=== PATIENT | female | born 1960 | race Caucasian/White ===

== ENCOUNTER 2024-05-04 11:54 | Emergency (ER) | payer OTHER, SELFPAY ==
--- NOTE | ~2024-05-04 | XR_ITS ---
EXAMINATION: XR CHEST CLINICAL INFORMATION: Shortness of breath COMPARISON: 11/23/2018 TECHNIQUE: Frontal view of the chest was obtained. FINDINGS: Is new of status post CABG and median sternotomy and compared to the previous examination. Lungs are clear and cardiomediastinal silhouette is normal with no evidence of pleural effusion. XR/XR chest 1V IMPRESSION: No active cardiopulmonary disease
[2024-05-04 12:54] VITALS: BP 125/104; PULSE 75; RESP 18; TEMP 36.1; O2SAT 100; BMI 20.9
--- NOTE | 2024-05-04 12:58 | ED.GENADULT ---
HPI - General Adult General Chief complaint: General Medical Stated complaint: headache, rib pain, stiffness Time Seen by Provider: 05/04/24 15:19 Source: patient, RN notes reviewed and old records reviewed Mode of arrival: ambulatory History of Present Illness ED Provider: Milly Woodard PA-C HPI narrative: 63-year-old female with a past medical history of COPD, CHF, diabetes, CAD on Plavix, fibromyalgia, lupus, presenting to the ED complaining of diffuse body aches/myalgias, chills, fatigue/generalized weakness, and chronic SOB x few days. Admits symptoms for similar to prior lupus/fibromyalgia flares. Admits recently moved from [place]. Denies fever, CP, abdominal pain, nausea/vomiting. Denies daily steroid use. Related Data Previous Rx's ?Medication ?Instructions ?Recorded acetaminophen 500 mg tablet 500 mg PO Q6H PRN fever or pain 05/04/24 (Tylenol Extra Strength) #14 tabs cyclobenzaprine 5 mg tablet 5 mg PO Q8H PRN pain (scale score 05/04/24 7-10) 5 days #14 tabs prednisone 20 mg tablet 40 mg (2 x 20 mg) PO DAILY 5 days 05/04/24 #10 tabs Allergies Allergy/AdvReac Type Severity Reaction Status Date / Time cat dander [CAT DANDER] Allergy Mild ITCHY EYES Verified 05/04/24 12:59 Review of Systems Review of Systems: Constitutional: No Fever, + Chills, +fatigue ENT/Mouth: No Ear Pain, No Nasal Congestion, No sore throat, No Rhinorrhea, No Swallowing Difficulty Cardiovascular: No Chest Pain, + SOB Respiratory: No Cough, No Sputum, No Wheezing Gastrointestinal: No Nausea, No Vomiting, No Diarrhea, No Abdominal pain Genitourinary: No Dysuria, No Hematuria, No Urinary Incontinence/retention, No Flank Pain Musculoskeletal: +joint pain, + Myalgias, No Joint Swelling Skin: No Skin Lesions, No rash Neuro: + Weakness, No Numbness, No Paresthesias Yes all other systems are reviewed and are negative Constitutional: Constitutional: Reports as per [facility] Past Medical History Attestation statement: The following information was validated with the patient. Source: old records reviewed Social History Social History Advance Directives: No Do you have a plan to hurt others: No Plan Physical Exam ED Vital Signs: Vital Signs - 24 hr 05/04/24 12:54 05/04/24 17:13 Temperature 96.9 F 97.8 F Pulse Rate 75 67 Respiratory Rate 18 16 Blood Pressure 125/104 H 145/72 H Pulse Oximetry 100 98 Oxygen Delivery Method Room Air Room Air BMI result Body Mass Index 20.9 Const General: cooperative, no acute distress and alert Orientation/consciousness: patient oriented x3 Limitations: no limitations HENMT Head: Yes normal to inspection and Yes atraumatic Ears: hearing grossly normal bilaterally General nose exam: Normal external nose present Face and sinus: Yes normal facial exam Eyes General: appearance normal, both eyes and all related structures Pupils: Equal, round and reactive pupils present EOM: EOMs intact bilaterally Neck Neck: Yes normal visual inspection and Yes no meningeal signs Resp Effort & Inspection: normal respiratory effort and no respiratory distress Auscultation: clear to auscultation bilaterally, no crackles, no rhonchi and no wheezes Cardio Rate: regular rate Heart sounds: S1 normal heart sound present and S2 normal heart sound present GI Inspection: Yes normal to inspection Palpation (GI): Soft to palpation, nontender, no guarding and not rigid General: Yes no CVA tenderness Back/Spine/Pelvis Back: no CVA tenderness Skin Rashes: no rashes Wounds: no wounds Neuro General: patient oriented x3, gait normal, tone normal, moves all extremities, no meningeal signs, no focal motor deficits and CN's II-XI intact bilaterally Cranial nerves: Yes CN's II-XII intact bilaterally and Yes Equal, round and reactive pupils present Gait exam (Neuro): Normal gait present Motor exam (neuro): 5/5 motor strength present throughout Extrem General: Yes normal to inspection, Yes no pedal edema and Yes no calf tenderness Course Course Course Narrative: This is an RME: Additional HPI, ROS, PE not included below will be deferred to primary provider. RME assessment and note performed by: Sugey Urrutia PA-C This is a [id number]-female who presents to the ER with complaints of body aches, headache, back pain. Symptoms started 2 days ago. No sick contacts. Recently moved from [place] 3 weeks ago, drove up. Feeling some chills, no fevers. Feel short of breath, no nausea, vomiting or diarrhea. Vital signs within normal limits. Further ER evaluation needed. Plan: Labs, EKG, chest x-ray -chronic anemia. No leukocytosis. Elevated ESR/CRP -troponin and BNP WNL -COVID/flu/RSV negative XR chest 1V IMPRESSION: No active cardiopulmonary disease Results discussed with patient including worrisome signs and symptoms and strict return precautions, and when to return to the emergency department. They verbalized understanding and feel safe for discharge at this time. Medications Administered Discontinued Medications Generic Name Dose Route Start Last Admin Trade Name Giorgio PRN Reason Stop Dose Admin Acetaminophen 975 mg 05/04/24 15:37 05/04/24 15:53 Acetaminophen 325 Mg Tablet PO 05/04/24 15:38 975 mg ONCE ONE Administration Cyclobenzaprine HCl 5 mg 05/04/24 15:37 05/04/24 15:53 Cyclobenzaprine Hcl 5 Mg Tablet PO 05/04/24 15:38 5 mg ONCE ONE Administration Prednisone 40 mg 05/04/24 17:30 05/04/24 17:54 Prednisone 20 Mg Tablet PO 05/04/24 17:31 40 mg ONCE ONE Administration Medical Decision Making Medical Decision Making [facility] Narrative: 63-year-old female with a past medical history of COPD, CHF, diabetes, CAD on Plavix, fibromyalgia, lupus, presenting to the ED complaining of diffuse body aches/myalgias, chills, fatigue/generalized weakness, and chronic SOB x few days. On exam hypertensive, NAD, nontoxic appearing, lungs CTA, no focal neuro deficits. Concern for viral illness vs lupus or fibromyalgia flare vs metabolic abnormalities. Lower suspicion for acute COPD/CHF exacerbation or PE at this time as symptoms or acute chronic. Unlikely dissection/ACS Plan: EKG, labs, viral testing, CXR, pain control Please refer to course for remaining clinical decision making, interpretation of labs/imaging results, and discussions with consultants and/or family members. Differential Diagnosis Differential Diagnoses: The differential diagnosis associated with the presentation includes As above Admission/Observation Consideration of admission/observation: Escalation of care including admission/observation considered Lab Data [facility] Lab Attestation statement: I reviewed the patient's lab results. 05/04/24 13:44 05/04/24 13:44 Labs: Lab Results 05/04/24 Range/Units 13:44 WBC 6.4 (4.8-10.8) X10*3/uL RBC 4.52 (4.20-5.50) X10*6/uL Hgb 11.1 L (12.0-16.0) g/dl Hct 35.5 L (37.0-47.0) % MCV 78.5 L (80.0-98.0) fL MCH 24.6 L (27.0-33.0) pg MCHC 31.3 (31.0-35.0) g/dl RDW 15.9 (11.0-16.0) % Plt Count 238 (160-400) X10*3/uL MPV 10.4 (9.4-12.3) fL Immature Gran % (Auto) 0.3 (0.0-0.4) % Neut % (Auto) 50.2 (45-73) % Lymph % (Auto) 30.0 (20-40) % Stephens % (Auto) 11.7 H (2-11) % Eos % (Auto) 7.3 H (0-4) % Baso % (Auto) 0.5 (0-2) % Lymph # (Auto) 1.9 (1.2-4.9) X10*3/uL Stephens # (Auto) 0.8 (0.1-1.2) X10*3/uL Eos # (Auto) 0.5 H (0.0-0.4) X10*3/uL Baso # (Auto) 0.0 (0.0-0.2) X10*3/uL Abs Immat Gran (auto) 0.02 (0.00-0.03) X10*3/uL Absolute Neuts (auto) 3.2 (2.0-8.3) x10*3/uL Absolute Nucleated RBC 0.000 (0.0-0.012) X10*3/uL Nucleated RBC % (auto) 0.0 (0.0-0.2) /100WBC ESR 67 H (0-20) MM/HR Sodium 141 (135-145) mmol/L Potassium 3.7 (3.3-5.1) mmol/L Chloride 110 H (96-108) mmol/L Carbon Dioxide 21 L (22-29) mmol/L Anion Gap 14 (12-20) BUN 12 (9-16) mg/dL Creatinine 0.86 (0.5-1.4) mg/dL Estim Creat Clear Calc 55.3 Estimated GFR > 60 Random Glucose 93 (60-115) mg/dL Calcium 10.0 (8.4-10.2) mg/dL Magnesium 2.3 (1.6-2.6) mg/dL Total Bilirubin 0.5 (0.0-1.0) mg/dL Direct Bilirubin 0.2 (0.0-0.5) mg/dL AST 13 (5-31) U/L ALT 5 (0-31) U/L Alkaline Phosphatase 79 (39-117) U/L Troponin I High Sens 3.2 (<3.5-17.0) ng/L C-Reactive Protein 6.76 H (< or = 0.50) mg/dL B-Natriuretic Peptide 31 (<100) pg/mL Total Protein 8.1 H (6.5-8.0) g/dL Albumin 4.1 (3.5-5.0) g/dL Lipase 22 (8-78) U/L Influenza Type A (PCR) NEGATIVE (Negative) Influenza Type B (PCR) NEGATIVE (Negative) RSV RNA Qual (PCR) NEGATIVE (Negative) SARS-CoV-2 RNA (RT-PCR) NEGATIVE (Negative) Independent Interpretation I performed an independent interpretation of an: EKG (Interpretation EKG normal sinus rhythm rate of 68. OR interval 140. QTC 433. No STEMI.) Radiology Impression Discussion of test interpretation with radiology: I have reviewed the radiologist's reading. External Record Review External record reviewed: Inpatient record, Office record, Outpatient record, Prior outpatient labs, Prior outpatient radiology, Primary care record and Outside ED record Tests considered The following testing was considered but not selected: As above Prescription Management I considered prescription management with: Pain Medication Chronic Conditions Patient?s care impacted by: Other (Fibromyalgia, lupus, COPD) Discharge Plan Discharge Clinical Impression: Lupus, Myalgia Patient Disposition: Home, Self-Care Instructions: Lupus Erythematosus (DC), Musculoskeletal Pain (ED) Additional Instructions: We suspect you are having a lupus flare, prednisone as a steroid please take as prescribed for the next 5 days In addition continue to take all home prescribed medications Flexeril is a muscle relaxer, take at night as it makes you drowsy, do not drive, drink alcohol, or operate machinery while taking it In addition take Tylenol at home If symptoms persist or worsen, constant worsening chest pain, shortness of breath, pain fever return to the ED Please establish doctors in the area as well as rheumatology Prescriptions: New prednisone 20 mg tablet 40 mg PO DAILY 5 Days Qty: 10 0RF acetaminophen [Tylenol Extra Strength] 500 mg tablet 500 mg PO Q6H PRN (Reason: fever or pain) Qty: 14 0RF cyclobenzaprine 5 mg tablet 5 mg PO Q8H PRN (Reason: pain (scale score 7-10)) 5 Days Qty: 14 0RF Referrals: [facility] Primary CareJose [Provider Group] [facility] Primary CareEzequiel [Provider Group] [facility] [place] Rheumatology Service [Provider Group] Discharge Date/Time: 05/04/24 17:58 Print Language: [place]
--- NOTE | 2024-05-04 12:59 | ECG_ITS ---
Test Reason : DIF BREATHING/ CHEST TIGHTNESS Blood Pressure : / mmHG Vent. Rate : 068 BPM Atrial Rate : 068 BPM P-R Int : 140 ms QRS Dur : 090 ms QT Int : 408 ms P-R-T Axes : 057 009 044 degrees QTc Int : 433 ms Normal sinus rhythm Nonspecific ST and T wave abnormality Abnormal ECG When compared with ECG of 23-NOV-2018 13:05, Premature ventricular complexes are no longer Present Vent. rate has decreased BY 64 BPM Criteria for Septal infarct are no longer Present Nonspecific T wave abnormality, worse in Anterior leads Referred By: Sugey Urrutia Electronically Signed By:ANGELINA TYSON MD
[2024-05-04 13:49] LABS: MANUAL DIFF FLAG NO
[2024-05-04 13:50] LABS: Basophils Percent Auto 0.5 % (0-2); Eosinophils Absolute Auto 0.5 X10*3/uL (0.0-0.4); Eosinophils Percent Auto 7.3 % (0-4); Hematocrit 35.5 % (37.0-47.0); Hemoglobin 11.1 g/dl (12.0-16.0); Imm Gran Abs Auto 0.02 X10*3/uL (0.00-0.03); Imm Gran Pct Auto 0.3 % (0.0-0.4); Lymphocytes Absolute Auto 1.9 X10*3/uL (1.2-4.9); Mean Corpuscular HGB Conc 31.3 g/dl (31.0-35.0); Mean Corpuscular Hemoglobin 24.6 pg (27.0-33.0); Mean Corpuscular Volume 78.5 fL (80.0-98.0); Mean Platelet Volume 10.4 fL (9.4-12.3); Monocytes Absolute Auto 0.8 X10*3/uL (0.1-1.2); Monocytes Percent Auto 11.7 % (2-11); Neutrophils Absolute Auto 3.2 x10*3/uL (2.0-8.3); Neutrophils Percent Auto 50.2 % (45-73); Platelet Count 238 X10*3/uL (160-400); Red Blood Count 4.52 X10*6/uL (4.20-5.50); Red Cell Distribution Width 15.9 % (11.0-16.0); White Blood Count 6.4 X10*3/uL (4.8-10.8)
[2024-05-04 14:08] LABS: Alanine Aminotransferase 5 U/L (0-31); Albumin Level 4.1 g/dL (3.5-5.0); Alkaline Phosphatase 79 U/L (39-117); Anion Gap 14 (12-20); Aspartate Amino Transferase 13 U/L (5-31); Bilirubin Direct 0.2 mg/dL (0.0-0.5); Bilirubin Total 0.5 mg/dL (0.0-1.0); Blood Urea Nitrogen 12 mg/dL (9-16); Carbon Dioxide 21 mmol/L (22-29); Chloride 110 mmol/L (96-108); Creatinine Clr Calc Pharmacy 55.3; Estimated Glomerular Filt Rate > 60; Glucose Random 93 mg/dL (60-115); Lipase 22 U/L (8-78); Magnesium 2.3 mg/dL (1.6-2.6); Potassium 3.7 mmol/L (3.3-5.1); Sodium 141 mmol/L (135-145); Total Protein 8.1 g/dL (6.5-8.0)
[2024-05-04 14:14] LABS: Troponin-I High Sensitivity 3.2 ng/L (<3.5-17.0)
[2024-05-04 14:29] LABS: Influenza A PCR NEGATIVE (Negative); Influenza B PCR NEGATIVE (Negative); Resp Syncy Virus RNA Qual PCR NEGATIVE (Negative); SARS COV2 PCR INHOUSE NEGATIVE (Negative)
[2024-05-04] MEDS: Acetaminophen 325 MG TABLET 975 MG PO (15:53)
[2024-05-04] MEDS: Cyclobenzaprine HCl 5 MG TABLET PO (15:53)
[2024-05-04 16:22] LABS: C Reactive Protein 6.76 mg/dL (< or = 0.50)
[2024-05-04 16:45] LABS: B Type Natriuretic Peptide 31 pg/mL (<100)
[2024-05-04 16:55] LABS: Erythrocyte Sedimentation Rate 67 MM/HR (0-20)
[2024-05-04 17:13] VITALS: BP 145/72; PULSE 67; RESP 16; TEMP 36.6; O2SAT 98
[2024-05-04] MEDS: predniSONE 20 MG TABLET 40 MG PO (17:54)
== END 2024-05-04 17:58 | disposition home or self-care (01) ==
PROVIDERS: Physician Assistant; Physician Assistant Medical; Emergency Provider Internal Medicine
DX: M32.9 Systemic lupus erythematosus, unspecified (principal); M79.10 Myalgia, unspecified site; R06.02 Shortness of breath; Z03.818 Encounter for observation for suspected exposure to other biological agents ruled out
CPT/HCPCS: 0241U; 36415; 71045; 80048; 80076; 83690; 83735; 83880; 84484; 85025; 85652; 86140; 93005; 99283

== ENCOUNTER → 2024-05-04 12:59 | Outpatient (BNV) | payer OTHER, MEDICAID, SELFPAY | PROVIDERS: Emergency Provider Internal Medicine; Visit Provider Internal Medicine Cardiovascular Disease | DX: R94.31 Abnormal electrocardiogram [ECG] [EKG] (principal) | CPT/HCPCS: 93010 ==

== ENCOUNTER 2024-05-24 13:47 | Emergency (ER) | payer OTHER, SELFPAY ==
--- NOTE | ~2024-05-24 | CT_ITS ---
EXAMINATION: CT ABDOMEN AND PELVIS WITHOUT CONTRAST CLINICAL INFORMATION: Right-sided abdominal pain COMPARISON: CTA chest abdomen pelvis 07/07/2018 TECHNIQUE: Multidetector volumetric imaging was performed from the superior aspect of the liver through the pubic symphysis. Sagittal and coronal reformatted images were obtained on the technologist's workstation. This CT examination was performed using dose optimization techniques as appropriate, variously including the following: *Automated exposure control *Adjustment of mA and/or kV according to patient size (this includes techniques or standardized protocols for targeted exams where dose is matched to indication/reason for exam; i.e. extremities or head) *Use of iterative reconstruction technique DLP: 342 mGy-cm FINDINGS: LUNG BASES: There is mild pectus excavatum. Some mild bibasilar scarring is present. LIVER, GALLBLADDER, AND BILIARY TREE: The liver is normal in size, shape, and attenuation. A benign 1.5 cm hepatic cyst is present in the right lobe. No suspicious solid focal hepatic lesion or biliary ductal dilatation is present. The gallbladder is unremarkable with no evidence of radiopaque gallstones, gallbladder wall thickening, or obvious pericholecystic inflammatory changes. PANCREAS: Unremarkable. SPLEEN: Unremarkable. ADRENAL GLANDS: Unremarkable. KIDNEYS AND URETERS: The right kidney is normal in size. The lower pole the left kidney is atrophic. Multiple bilateral benign Bosniak class I renal cysts are noted which require no additional imaging or follow-up. No solid renal masses are seen. No nephrolithiasis or hydronephrosis. Normal. BLADDER: Unremarkable. GASTROINTESTINAL TRACT: The small and large bowel are unremarkable. The appendix is not seen but there is no evidence of appendicitis evidence of appendicitis. ABDOMINAL WALL: No significant hernia is appreciated. LYMPH NODES: No retroperitoneal lymphadenopathy. VASCULAR: There is an infrarenal abdominal aortic aneurysm maximal dimension of 3.2 cm when measurements are made perpendicular to a center line on a created 3-D model. This measured 2.5 cm on the 07/07/2018 CTA. Surveillance ultrasound is recommended every 3 years. Bilateral renal artery stents are present. PELVIC VISCERA: The uterus and adnexa are unremarkable. OSSEOUS STRUCTURES: Degenerative changes are present spine with biconvex thoracolumbar scoliosis. CT/CT abdomen pelvis wo IV con IMPRESSION: 1. A cause for the patient's abdominal pain has not been found. 2. Incidental note made of 3.2 cm infrarenal abdominal aortic aneurysm, atrophic lower pole left kidney, benign hepatic and renal cysts which need no additional imaging or follow-up, degenerative changes in the spine and other findings described above. Fleischner guidelines were followed.
[2024-05-24 14:13] VITALS: BP 165/100; PULSE 69; RESP 16; TEMP 36.8; O2SAT 95; BMI 21.4
--- NOTE | 2024-05-24 14:14 | ED_ITS ---
HPI - General Adult General Chief complaint: Abdominal Pain Stated complaint: Pain R side, nausea Time Seen by Provider: 05/24/24 19:01 Source: patient Mode of arrival: ambulatory Limitations: no limitations History of Present Illness HPI narrative: This is a 63-year-old woman with a past medical history of COPD, CHF, diabetes mellitus, CAD, fibromyalgia, lupus who presents for evaluation of right lateral torso pain. Patient reports having this sensation for the last week. She reports taking Tylenol and ibuprofen with no relief of her symptoms. The patient states that she has been able to eat normally. She states no fevers or chills. She states no dysuria or urinary frequency/urgency. She states no trauma to the area of her pain. She states that she does have more pain when laying on that side and/or moving her torso in the rightward direction. She states no chest pain or difficulty breathing. She states pain is not worse with breathing. She states no diarrhea or constipation. She states no melena or hematochezia. Related Data Previous Rx's ?Medication ?Instructions ?Recorded acetaminophen 500 mg tablet 500 mg PO Q6H PRN fever or pain 05/04/24 (Tylenol Extra Strength) #14 tabs cyclobenzaprine 5 mg tablet 5 mg PO Q8H PRN pain (scale score 05/04/24 7-10) 5 days #14 tabs prednisone 20 mg tablet 40 mg (2 x 20 mg) PO DAILY 5 days 05/04/24 #10 tabs acetaminophen 500 mg tablet 1,000 mg (2 x 500 mg) PO Q8H PRN 05/24/24 (Tylenol Extra Strength) pain #20 tabs ibuprofen 600 mg tablet 600 mg PO Q6H PRN pain #30 tabs 05/24/24 Allergies Allergy/AdvReac Type Severity Reaction Status Date / Time cat dander [CAT DANDER] Allergy Mild ITCHY EYES Verified 05/24/24 14:17 Review of Systems 2 Review of Systems: ROS as per HPI [facility] Social History Social History Advance Directives: No Advance Directives Information Provided: No Physical Exam ED Vital Signs: Vital Signs - 24 hr 05/24/24 14:13 Temperature 98.2 F Pulse Rate 69 Respiratory Rate 16 Blood Pressure 165/100 H Pulse Oximetry 95 Oxygen Delivery Method Room Air BMI result Body Mass Index 21.4 Gen: NAD, AOx3 HEENT: NCAT, EOMI, normal conjunctiva CV: RRR Pulm: CTAB, no increased work of breathing GI: Soft, NTND, negative Vo sign, no rebound, guarding or rigidity, negative [place] and [place] Arboleda sign MSK: No bilateral CVA tenderness, mild tenderness to palpation to the right lateral torso without overlying skin changes Neuro: Grossly non focal Course Course Course Narrative: This is a Rapid Medical Examination (RME) performed by Suad White PA-C in triage. Full HPI, ROS, assessment and treatment plan per primary provider in the Main ED. 63 yo female hx fo COPD, CHF, DM, CAD on plavix, fibromyalgia, lupus here for eval of right lower abd/ flank pain x1 week. assoc nausea w/o vomiting. taking Tylenol at home w/o relief. denies trauma/ injury/ falls. denies dysuria, hematuria, fever/chills. + ttp of right lower abdomen/ flank Plan: labs, UA ordered Medical Decision Making Medical Decision Making [facility] Narrative: Differential diagnosis includes, but is not limited to strain, nephrolithiasis, ureterolithiasis. I considered urinary tract infection/pyelonephritis, patient does not have any fever, chills, dysuria or urinary frequency/urgency to suggest this. I have higher suspicion for musculoskeletal pain given patient experiences pain with movement of her torso. She was provided supportive care here in the emergency room with Tylenol and Toradol. Patient is afebrile and hemodynamically stable on room air. Exam is benign and reassuring with mild tenderness to palpation to the right lateral torso. Of note, patient does not have costovertebral angle tenderness or abdominal tenderness to palpation. I reviewed and interpreted labs, which are noncontributory. I revealed CT imaging findings as below with no identifiable cause for patient's flank pain. There are incidental findings (as below) which need no additional imaging or follow-up. On re-examination, patient is well-appearing and in no acute distress. There is no indication for further emergent evaluation in this otherwise well-appearing patient as above. ?Patient is provided written and verbal instructions, educational materials, recommendations for outpatient follow-up (primary care for a), prescription for Tylenol, prescription for ibuprofen, strict return precautions and teach back is performed. ?Patient states understanding and agreement with plan of care. ?Patient is discharged home in stable and improved condition. Admission/Observation Consideration of admission/observation: Escalation of care including admission/observation considered Lab Data MDM Lab Attestation statement: I reviewed the patient's lab results. I reviewed patient's labs including CBC, CMP and lipase, which are largely benign and reassuring. There is noted stable chronic anemia with hemoglobin 11.3 (previous 11.1) and mild leukopenia with white blood cell count of 4.6 (patient has previously had leukopenia with a white blood count had a 4.4 in August of 2018, most recently white blood cell count 6.4 on May 04, 2024). 05/24/24 14:38 05/24/24 14:38 Labs: Lab Results 05/24/24 Range/Units 14:38 WBC 4.6 L (4.8-10.8) X10*3/uL RBC 4.55 (4.20-5.50) X10*6/uL Hgb 11.3 L (12.0-16.0) g/dl Hct 35.5 L (37.0-47.0) % MCV 78.0 L (80.0-98.0) fL MCH 24.8 L (27.0-33.0) pg MCHC 31.8 (31.0-35.0) g/dl RDW 16.4 H (11.0-16.0) % Plt Count 221 (160-400) X10*3/uL MPV 9.9 (9.4-12.3) fL Immature Gran % (Auto) 0.2 (0.0-0.4) % Neut % (Auto) 49.9 (45-73) % Lymph % (Auto) 35.2 (20-40) % [place] % (Auto) 7.7 (2-11) % Eos % (Auto) 6.6 H (0-4) % Baso % (Auto) 0.4 (0-2) % Lymph # (Auto) 1.6 (1.2-4.9) X10*3/uL [place] # (Auto) 0.4 (0.1-1.2) X10*3/uL Eos # (Auto) 0.3 (0.0-0.4) X10*3/uL Baso # (Auto) 0.0 (0.0-0.2) X10*3/uL Abs Immat Gran (auto) 0.01 (0.00-0.03) X10*3/uL Absolute Neuts (auto) 2.3 (2.0-8.3) x10*3/uL Absolute Nucleated RBC 0.000 (0.0-0.012) X10*3/uL Nucleated RBC % (auto) 0.0 (0.0-0.2) /100WBC Sodium 139 (135-145) mmol/L Potassium 3.8 (3.3-5.1) mmol/L Chloride 107 (96-108) mmol/L Carbon Dioxide 25 (22-29) mmol/L Anion Gap 11 L (12-20) BUN 7 L (9-16) mg/dL Creatinine 0.91 (0.5-1.4) mg/dL Estim Creat Clear Calc 52.3 Estimated GFR > 60 Random Glucose 87 (60-115) mg/dL Calcium 9.9 (8.4-10.2) mg/dL Magnesium 2.2 (1.6-2.6) mg/dL Total Bilirubin 0.4 (0.0-1.0) mg/dL AST 14 (5-31) U/L ALT 7 (0-31) U/L Alkaline Phosphatase 82 (39-117) U/L Total Protein 7.4 (6.5-8.0) g/dL Albumin 3.9 (3.5-5.0) g/dL Lipase 20 (8-78) U/L Radiology Impression Discussion of test interpretation with radiology: I have reviewed the radiologist's reading. Radiologist Impression: CT/CT abdomen pelvis wo IV con IMPRESSION: 1. A cause for the patient's abdominal pain has not been found. 2. Incidental note made of 3.2 cm infrarenal abdominal aortic aneurysm, atrophic lower pole left kidney, benign hepatic and renal cysts which need no additional imaging or follow-up, degenerative changes in the spine and other findings described above. Fleischner guidelines were followed. Dictated By: Dominguez Sierra MD Signed By: <Electronically signed by Dominguez Sierra MD in OV> 05/24/24 1920 Discharge Plan Discharge Clinical Impression: Acute flank pain Patient Disposition: Home, Self-Care Instructions: Flank Pain (ED) Additional Instructions: You were seen and evaluated in the emergency room. Your vital signs were normal and he did not have fever. ? Your blood work was normal. Your CAT showed no acute findings or findings that need additional follow up or additional imaging. You are given a prescription for Tylenol and ibuprofen. Please take as directed. Please always take ibuprofen with food and water. Please be sure to not take any other medications that contain nonsteroidal anti-inflammatory drugs (NSAIDs) while taking ibuprofen. You were given a medication called Toradol in the emergency room. For this reason, please wait 12 hours before taking ibuprofen. You are given a referral to establish care with [facility] Primary Care. Please follow- up with them in the next 5-7 days. Please call to make an appointment. Please return to the emergency room if you develop any worsening symptoms including, but not limited to new or worsening pain, persistent vomiting, inability to eat/drink, fever, chest pain or difficulty breathing. ? Prescriptions: New acetaminophen [Tylenol Extra Strength] 500 mg tablet 1,000 mg PO Q8H PRN (Reason: pain) Qty: 20 0RF ibuprofen 600 mg tablet 600 mg PO Q6H PRN (Reason: pain) Qty: 30 0RF No Action prednisone 20 mg tablet 40 mg PO DAILY 5 Days Qty: 10 0RF acetaminophen [Tylenol Extra Strength] 500 mg tablet 500 mg PO Q6H PRN (Reason: fever or pain) Qty: 14 0RF cyclobenzaprine 5 mg tablet 5 mg PO Q8H PRN (Reason: pain (scale score 7-10)) 5 Days Qty: 14 0RF Referrals: [facility] Primary CareEzequiel [Provider Group] - 1 week Print Language: Turkish
[2024-05-24 14:42] LABS: MANUAL DIFF FLAG NO
[2024-05-24 14:44] LABS: Basophils Percent Auto 0.4 % (0-2); Eosinophils Absolute Auto 0.3 X10*3/uL (0.0-0.4); Eosinophils Percent Auto 6.6 % (0-4); Hematocrit 35.5 % (37.0-47.0); Hemoglobin 11.3 g/dl (12.0-16.0); Imm Gran Abs Auto 0.01 X10*3/uL (0.00-0.03); Imm Gran Pct Auto 0.2 % (0.0-0.4); Lymphocytes Absolute Auto 1.6 X10*3/uL (1.2-4.9); Lymphocytes Percent Auto 35.2 % (20-40); Mean Corpuscular HGB Conc 31.8 g/dl (31.0-35.0); Mean Corpuscular Hemoglobin 24.8 pg (27.0-33.0); Mean Platelet Volume 9.9 fL (9.4-12.3); Monocytes Absolute Auto 0.4 X10*3/uL (0.1-1.2); Monocytes Percent Auto 7.7 % (2-11); Neutrophils Absolute Auto 2.3 x10*3/uL (2.0-8.3); Neutrophils Percent Auto 49.9 % (45-73); Platelet Count 221 X10*3/uL (160-400); Red Blood Count 4.55 X10*6/uL (4.20-5.50); Red Cell Distribution Width 16.4 % (11.0-16.0); White Blood Count 4.6 X10*3/uL (4.8-10.8)
[2024-05-24 15:03] LABS: Alanine Aminotransferase 7 U/L (0-31); Albumin Level 3.9 g/dL (3.5-5.0); Alkaline Phosphatase 82 U/L (39-117); Anion Gap 11 (12-20); Aspartate Amino Transferase 14 U/L (5-31); Bilirubin Total 0.4 mg/dL (0.0-1.0); Blood Urea Nitrogen 7 mg/dL (9-16); Calcium 9.9 mg/dL (8.4-10.2); Carbon Dioxide 25 mmol/L (22-29); Chloride 107 mmol/L (96-108); Creatinine Clr Calc Pharmacy 52.3; Estimated Glomerular Filt Rate > 60; Glucose Random 87 mg/dL (60-115); Lipase 20 U/L (8-78); Magnesium 2.2 mg/dL (1.6-2.6); Potassium 3.8 mmol/L (3.3-5.1); Sodium 139 mmol/L (135-145); Total Protein 7.4 g/dL (6.5-8.0)
--- NOTE | 2024-05-24 19:48 | ED_ITS ---
HPI - General Adult General Chief complaint: Abdominal Pain Stated complaint: Pain R side, nausea Time Seen by Provider: 05/24/24 19:01 Related Data Previous Rx's ?Medication ?Instructions ?Recorded acetaminophen 500 mg tablet 500 mg PO Q6H PRN fever or pain 05/04/24 (Tylenol Extra Strength) #14 tabs cyclobenzaprine 5 mg tablet 5 mg PO Q8H PRN pain (scale score 05/04/24 7-10) 5 days #14 tabs prednisone 20 mg tablet 40 mg (2 x 20 mg) PO DAILY 5 days 05/04/24 #10 tabs acetaminophen 500 mg tablet 1,000 mg (2 x 500 mg) PO Q8H PRN 05/24/24 (Tylenol Extra Strength) pain #20 tabs ibuprofen 600 mg tablet 600 mg PO Q6H PRN pain #30 tabs 05/24/24 Allergies Allergy/AdvReac Type Severity Reaction Status Date / Time cat dander [CAT DANDER] Allergy Mild ITCHY EYES Verified 05/24/24 14:17 Physical Exam ED Vital Signs: Vital Signs - 24 hr 05/24/24 14:13 Temperature 98.2 F Pulse Rate 69 Respiratory Rate 16 Blood Pressure 165/100 H Pulse Oximetry 95 Oxygen Delivery Method Room Air BMI result Body Mass Index 21.4 Medications Administered Discontinued Medications Generic Name Dose Route Start Last Admin Trade Name Freq PRN Reason Stop Dose Admin Acetaminophen 650 mg 05/24/24 19:49 05/24/24 20:26 Acetaminophen 325 Mg Tablet PO 05/24/24 19:50 650 mg ONCE ONE Administration Ketorolac Tromethamine 30 mg 05/24/24 19:49 05/24/24 20:27 Ketorolac Tromethamine 30 Mg/Ml Vial IM 05/24/24 19:50 30 mg ONCE ONE Administration Medical Decision Making Lab Data 05/24/24 14:38 05/24/24 14:38 Labs: Lab Results 05/24/24 05/24/24 Range/Units 14:38 20:30 WBC 4.6 L (4.8-10.8) X10*3/uL RBC 4.55 (4.20-5.50) X10*6/uL Hgb 11.3 L (12.0-16.0) g/dl Hct 35.5 L (37.0-47.0) % MCV 78.0 L (80.0-98.0) fL MCH 24.8 L (27.0-33.0) pg MCHC 31.8 (31.0-35.0) g/dl RDW 16.4 H (11.0-16.0) % Plt Count 221 (160-400) X10*3/uL MPV 9.9 (9.4-12.3) fL Immature Gran % (Auto) 0.2 (0.0-0.4) % Neut % (Auto) 49.9 (45-73) % Lymph % (Auto) 35.2 (20-40) % [place] % (Auto) 7.7 (2-11) % Eos % (Auto) 6.6 H (0-4) % Baso % (Auto) 0.4 (0-2) % Lymph # (Auto) 1.6 (1.2-4.9) X10*3/uL [place] # (Auto) 0.4 (0.1-1.2) X10*3/uL Eos # (Auto) 0.3 (0.0-0.4) X10*3/uL Baso # (Auto) 0.0 (0.0-0.2) X10*3/uL Abs Immat Gran (auto) 0.01 (0.00-0.03) X10*3/uL Absolute Neuts (auto) 2.3 (2.0-8.3) x10*3/uL Absolute Nucleated RBC 0.000 (0.0-0.012) X10*3/uL Nucleated RBC % (auto) 0.0 (0.0-0.2) /100WBC Sodium 139 (135-145) mmol/L Potassium 3.8 (3.3-5.1) mmol/L Chloride 107 (96-108) mmol/L Carbon Dioxide 25 (22-29) mmol/L Anion Gap 11 L (12-20) BUN 7 L (9-16) mg/dL Creatinine 0.91 (0.5-1.4) mg/dL Estim Creat Clear Calc 52.3 Estimated GFR > 60 Random Glucose 87 (60-115) mg/dL Calcium 9.9 (8.4-10.2) mg/dL Magnesium 2.2 (1.6-2.6) mg/dL Total Bilirubin 0.4 (0.0-1.0) mg/dL AST 14 (5-31) U/L ALT 7 (0-31) U/L Alkaline Phosphatase 82 (39-117) U/L Total Protein 7.4 (6.5-8.0) g/dL Albumin 3.9 (3.5-5.0) g/dL Lipase 20 (8-78) U/L Urine Color Yellow Urine Appearance Clear Urine pH 6.5 (5.0-9.0) Ur Specific [place] 1.020 (1.005-1.025) Urine Protein Negative (Neg-Trace) mg/dL Urine Glucose (UA) >=1000 H (Negative) mg/dL Urine Ketones Negative (Negative) mg/dL Urine Blood Negative (Negative) Urine Nitrite Negative (Negative) Ur Leukocyte Esterase Moderate (2+) H (Negative) Urine RBC 0-2 (0-2) /HPF Urine WBC >50 H (0-5) /HPF Ur Squamous Epith Cells 0-2 (0-2) /HPF Urine Bacteria 1+ (None Seen) Hyaline Casts 0-2 (0-2) /LPF Discharge Plan Discharge Clinical Impression: Acute flank pain Patient Disposition: Home, Self-Care Instructions: Flank Pain (ED) Additional Instructions: You were seen and evaluated in the emergency room. Your vital signs were normal and he did not have fever. ? Your blood work was normal. Your CAT showed no acute findings or findings that need additional follow up or additional imaging. You are given a prescription for Tylenol and ibuprofen. Please take as directed. Please always take ibuprofen with food and water. Please be sure to not take any other medications that contain nonsteroidal anti-inflammatory drugs (NSAIDs) while taking ibuprofen. You were given a medication called Toradol in the emergency room. For this reason, please wait 12 hours before taking ibuprofen. You are given a referral to establish care with [facility]. Please follow- up with them in the next 5-7 days. Please call to make an appointment. Please return to the emergency room if you develop any worsening symptoms including, but not limited to new or worsening pain, persistent vomiting, inability to eat/drink, fever, chest pain or difficulty breathing. ? Prescriptions: New acetaminophen [Tylenol Extra Strength] 500 mg tablet 1,000 mg PO Q8H PRN (Reason: pain) Qty: 20 0RF ibuprofen 600 mg tablet 600 mg PO Q6H PRN (Reason: pain) Qty: 30 0RF No Action prednisone 20 mg tablet 40 mg PO DAILY 5 Days Qty: 10 0RF acetaminophen [Tylenol Extra Strength] 500 mg tablet 500 mg PO Q6H PRN (Reason: fever or pain) Qty: 14 0RF cyclobenzaprine 5 mg tablet 5 mg PO Q8H PRN (Reason: pain (scale score 7-10)) 5 Days Qty: 14 0RF Referrals: [facility] [place] [facility] [Provider Group] - 1 week Interventions: ED Discharge Assessment Last Done: 05/24/24 20:36 Discharge Date/Time: 05/24/24 20:36 Print Language: Vietnamese
[2024-05-24] MEDS: Acetaminophen 325 MG TABLET 650 MG PO (20:26)
[2024-05-24 20:27] VITALS: BP 170/68; PULSE 77; RESP 16; TEMP 37; O2SAT 96
[2024-05-24] MEDS: Ketorolac Tromethamine 30 MG/ML VIAL IM (20:27)
[2024-05-24 20:36] VITALS: BP 170/68; PULSE 77; RESP 16; TEMP 37; O2SAT 96
[2024-05-24 20:48] LABS: Appearance Urine Clear; Color Urine Yellow; Glucose Urine UA >=1000 mg/dL (Negative); Leukocyte Esterase Urine Moderate (2+) (Negative); Nitrite Urine Negative (Negative); PH 6.5 (5.0-9.0); UMIC TRIGGER UACC YES; Urine Blood Negative (Negative); Urine Ketones Negative (Negative); Urine Protein Negative (Neg-Trace)
[2024-05-24 21:22] LABS: Bacteria Urine 1+ (None Seen); Hyaline Casts Urine 0-2 /LPF (0-2); RBC Urine 0-2 /HPF (0-2); Squamous Epithelial Cell Urine 0-2 /HPF (0-2); UACC Culture Trigger YES; WBC Urine >50 /HPF (0-5)
== END 2024-05-24 20:36 | disposition home or self-care (01) ==
PROVIDERS: Physician Assistant Medical; Emergency Provider Emergency Medicine
DX: R10.31 Right lower quadrant pain (principal); I25.10 Atherosclerotic heart disease of native coronary artery without angina pectoris; I50.9 Heart failure, unspecified; E11.9 Type 2 diabetes mellitus without complications; R11.0 Nausea; I71.40 Abdominal aortic aneurysm, without rupture, unspecified
CPT/HCPCS: 36415; 74176; 80053; 81001; 81003; 83690; 83735; 85025; 87086; 96372; 99284; J1885

== ENCOUNTER 2024-06-27 10:46 | Outpatient (AMB) | payer OTHER, SELFPAY ==
--- NOTE | 2024-06-27 10:49 | MHC.OFFVIS ---
Vital Signs 06/27/24 10:50 Height 5 ft 3 in Weight 123 lb 7.342 oz BMI 21.9 BP 150/80 H Blood Pressure Location Lt brachial Position Sitting Pulse 72 Pulse Source Pulse Oximeter Intake Visit Reasons: [employer]/ [facility] De La [facility]/ htn heart disease/ CHF Allergies cat dander [CAT DANDER] Allergy (Mild, Verified 05/24/24 14:17) ITCHY EYES Medication List - Last Reconciled 06/27/24 by Mynor Ramos MD acetaminophen (Tylenol Extra Strength) 500 mg PO Q6H PRN albuterol sulfate 90 mcg/actuation (Ventolin HFA) 2 puffs inhalation Q6H PRN ascorbic acid (vitamin C) 250 mg PO DAILY aspirin 81 mg PO DAILY atorvastatin 40 mg PO DAILY carvedilol 25 mg PO BID clopidogrel 75 mg PO DAILY cyclobenzaprine 5 mg PO Q8H PRN 5 days duloxetine 60 mg PO DAILY empagliflozin (Jardiance) 10 mg PO DAILY ferrous sulfate (FeroSul) 325 mg PO DAILY furosemide 20 mg PO DAILY gabapentin 800 mg PO TID gabapentin 800 mg PO TID ibuprofen 600 mg PO Q6H PRN nitroglycerin 0.4 mg sublingual DAILY pantoprazole 40 mg PO QAM sacubitril-valsartan 97-103 mg (Entresto) 1 tab PO BID spironolactone 25 mg PO DAILY trazodone 150 mg PO BEDTIME umeclidinium 62.5 mcg/actuation (Incruse Ellipta) 1 inh inhalation DAILY HPI Comments Details: Estephania is here for consultation regarding coronary disease. She has seen Dr. Patricio in the past but would like to switch to us. We have seen her in the past in consultation in the hospital. Essentially history of coronary disease going back more than a decade. History of LAD stenting around 2009, followed by renal artery stenting. For the last few years, she has been in [place]. She underwent coronary artery bypass surgery in [place] in 2019. ALMENDAREZ to LAD, saphenous vein to PDA and OM per PCP note. Subsequently, she has had 2 further catheterizations in 2019 and 2020, showing patent grafts and [place] vessel disease. Patient herself has no anginal-type symptoms. Somewhat nonspecific fatigue and tiredness. [facility] Medical History (Updated 06/27/24 @ 11:59 by Mynor Ramos MD) Occlusion and stenosis of left vertebral artery CVA (cerebral vascular accident) Heart failure with recovered ejection fraction (HFrecEF) Abdominal aortic aneurysm Arthritis SLE (systemic lupus erythematosus related syndrome) CKD (chronic kidney disease) COPD with asthma Hyperlipidemia Hypertension Atherosclerotic cardiovascular disease Diabetes Surgical History (Updated 06/27/24 @ 11:11 by Mynor Ramos MD) Status post aorto-coronary artery bypass graft History of open heart surgery Family History (Updated 06/27/24 @ 11:02 by Mariah Vallejo) Father Heart attack Social History (Updated 06/27/24 @ 11:02 by Mariah Vallejo) Alcohol intake: never Patient Tobacco Use Status: Never used Tobacco Review of Systems Const Denies weakness ENT Denies dizziness Card Denies chest pain, Denies chest pain with activity, Denies syncope, Denies rapid heart rate, Denies pedal edema, Denies edema, Denies leg edema, Denies lightheadedness, Denies palpitations, Denies dyspnea, Denies dyspnea on exertion and Denies orthopnea Resp Denies cough, Denies dyspnea and Denies dyspnea on exertion GI Denies hematochezia and Denies change in stool character Musc Denies abnormal gait, Denies muscle cramps, Denies muscle weakness, Denies numbness, Denies radiating pain into limb and Denies tingling Neuro Denies abnormal gait, Denies dizziness, Denies syncope, Denies numbness, Denies tingling and Denies weakness Endo Denies palpitations Physical Exam Vital Signs: Last Vital Signs Pulse 72 06/27/24 10:50 BP 150/80 H 06/27/24 10:50 BMI result Body Mass Index 21.9 Const General: comfortable and no acute distress Orientation/consciousness: patient oriented x3 HEENT Other: Unremarkable Head: Yes normal to inspection Neck Neck: Yes normal visual inspection Chest Chest palpation & inspection: normal inspection of the chest Resp Auscultation: clear to auscultation bilaterally Cardio Palpation: normal PMI Heart sounds: S1 normal heart sound present, S2 normal heart sound present, no gallops, no murmurs and no rubs GI Palpation (GI): Soft to palpation Back/Spine/Pelvis Other: unremarkable Skin General skin exam: no rashes or lesions noted Neuro General: patient oriented x3 Extrem General: Yes normal to inspection Psych Mental Status: mental status grossly normal Assessment & Plan Assessment & Plan (1) Atherosclerotic cardiovascular disease: Code(s): I25.10 - Atherosclerotic heart disease of [place] coronary artery without angina pectoris Category: Medical (2) Status post aorto-coronary artery bypass graft: Code(s): Z95.1 - Presence of aortocoronary bypass graft Category: Surgical (3) Heart failure with recovered ejection fraction (HFrecEF): Code(s): I50.32 - Chronic diastolic (congestive) heart failure Category: Medical (4) Hypertension: Code(s): I10 - Essential (primary) hypertension Category: Medical Plan We do not have the actual records from [place] but data is summarized in PCP's note. CABG in 2019-almendarez to LAD, saphenous vein graft to PDA and saphenous vein graft to OM. 2 further cardiac catheterizations in 2019 and 2020 both showing patent grafts. Echocardiogram in 2021 with LVEF of 30-35% but improved to 60% in 2022. Lexiscan from 2020, presumably prior to the repeat cardiac catheterization had shown anterior ischemia. Overall, established coronary disease with multiple interventions including bypass surgery but no active symptoms. We will check an echocardiogram further evaluation. Due to concern for abdominal aortic aneurysm, we will also do a Doppler ultrasound of the abdominal aorta. She remains optimal medical therapy including aspirin, Plavix and high-dose statins. May be reasonable to continue the dual antiplatelet therapy because of extensive vascular disease. With regard to the heart failure standpoint, remains on beta-blockers, Entresto, spironolactone, Jardiance. Clinically euvolemic. Meds will need to be adjusted further visits. Will follow-up after the testing. We will also obtain records from [place]. Orders: Orders CA echo transthoracic complete Today I25.10 - Atherosclerotic heart disease of [place] coronary artery without angina pectoris, Z95.1 - Presence of aortocoronary bypass graft abdominal aortic aneurysm Today I71.40 - Abdominal aortic aneurysm, without rupture, unspecified Medications: Discontinued prednisone Discontinued Reason: Patient no longer taking 40 mg (2 x 20 mg) PO DAILY 5 days 10 tabs 0RF acetaminophen (Tylenol Extra Strength) Discontinued Reason: Patient Refused 1,000 mg (2 x 500 mg) PO Q8H PRN 20 tabs 0RF pain Coding Level of Care Code New Pt Level 4 (82763) Diagnoses Atherosclerotic cardiovascular disease I25.10 Status post aorto-coronary artery bypass graft Z95.1 Heart failure with recovered ejection fraction (HFrecEF) I50.32 Hypertension I10
[2024-06-27 10:50] VITALS: BP 150/80; PULSE 72; BMI 21.9
== END 2024-06-27 11:17 | disposition home or self-care (01) ==
PROVIDERS: PCP Nurse Practitioner Primary Care; Visit Provider Internal Medicine
DX: I25.10 Atherosclerotic heart disease of native coronary artery without angina pectoris (principal); Z95.1 Presence of aortocoronary bypass graft; I50.32 Chronic diastolic (congestive) heart failure; I10 Essential (primary) hypertension
CPT/HCPCS: 99204

== ENCOUNTER → 2024-06-27 10:46 | Outpatient (BNVA) | payer OTHER, SELFPAY | PROVIDERS: PCP Nurse Practitioner Primary Care; Visit Provider Internal Medicine | DX: I25.10 Atherosclerotic heart disease of native coronary artery without angina pectoris (principal); I11.0 Hypertensive heart disease with heart failure; I50.32 Chronic diastolic (congestive) heart failure; Z95.1 Presence of aortocoronary bypass graft | CPT/HCPCS: 99202 ==

== ENCOUNTER 2024-07-05 09:20 | Outpatient (REF) | payer MEDICAID, SELFPAY ==
--- NOTE | ~2024-07-05 | US_ITS ---
EXAMINATION: US RETROPERITONEAL LIMITED (AORTA) CLINICAL INFORMATION: Abdominal aortic aneurysm. COMPARISON: Noncontrast CT scan from 05/24/2024 and CTA from 07/07/2018 TECHNIQUE: Diaz-scale, color Doppler and spectral Doppler evaluation of the abdominal aorta. FINDINGS: There is fusiform aneurysm of the distal abdominal aorta. Diffuse calcified plaque is seen. The measurements of the aorta in maximum AP and transverse dimensions respectively are as follows: Proximal: 2.5 x 2.7 cm. Mid: 2.0 x 1.8 cm. Distal: 3.4 x 3.5 cm. No significant mural thrombus. PSV: 71 cm/s. The measurements of the common iliac arteries in maximum AP and TRV dimensions are as follows: Right Common Iliac Artery: 1.0 x 1.1 cm. Left Common Iliac Artery: 1.2 x 0.9 cm. US/US abdominal aortic aneurysm IMPRESSION: Fusiform aneurysm of the distal abdominal aorta measuring 3.[address] measures aneurysm approximately 3.2 cm which given differences in technique is likely unchanged Electronically signed by: Lukasz Lion MD 07/06/2024 03:43 PM EDT
== END 2024-07-05 09:21 | disposition home or self-care (01) ==
LOC: HO.US 09:20
PROVIDERS: PCP Nurse Practitioner Primary Care; Visit Provider Internal Medicine
DX: I71.40 Abdominal aortic aneurysm, without rupture, unspecified (principal); I12.9 Hypertensive chronic kidney disease with stage 1 through stage 4 chronic kidney disease, or unspecified chronic kidney disease; N18.9 Chronic kidney disease, unspecified; N26.1 Atrophy of kidney (terminal); Z86.19 Personal history of other infectious and parasitic diseases
CPT/HCPCS: 76706; 99202

== ENCOUNTER 2024-07-05 11:51 | Outpatient (AMB) | payer MEDICAID, SELFPAY ==
--- NOTE | 2024-07-05 11:53 | HO.NEPHOV ---
Vital Signs 07/05/24 11:55 Height 5 ft 3 in Weight 122 lb BMI 21.6 BP 198/110 H Blood Pressure Location Lt brachial Position Sitting Pulse 98 Pulse Source Pulse Oximeter Pulse Oximetry (%) 93 Oxygen Delivery Method Room Air Intake Visit Reasons: RSCNG 06/06 appt DX-CKD-left renal atrophy/ Conf Stock Puller Required: No Accompanied by: Self / Same As Patient Allergies cat dander [CAT DANDER] Allergy (Mild, Verified 07/05/24 11:57) ITCHY EYES Medication List - Last Reconciled 07/05/24 by Brannon Liz MD albuterol sulfate 90 mcg/actuation (Ventolin HFA) 2 puffs inhalation Q6H PRN ascorbic acid (vitamin C) 250 mg PO DAILY aspirin 81 mg PO DAILY atorvastatin 40 mg PO DAILY budesonide-formoterol 160-4.5 mcg/actuation (Symbicort) 2 puffs inhalation BID carvedilol 25 mg PO BID clopidogrel 75 mg PO DAILY duloxetine 60 mg PO DAILY empagliflozin (Jardiance) 10 mg PO DAILY ferrous sulfate (FeroSul) 325 mg PO DAILY furosemide 20 mg PO DAILY gabapentin 800 mg PO TID nitroglycerin 0.4 mg sublingual DAILY pantoprazole 40 mg PO QAM sacubitril-valsartan 97-103 mg (Entresto) 1 tab PO BID trazodone 150 mg PO BEDTIME umeclidinium 62.5 mcg/actuation (Incruse Ellipta) 1 inh inhalation DAILY HPI Comments Details: 63-year-old man with a history of atrophic left kidney has been referred for further evaluation of chronic kidney disease. She has a history of hepatitis-C which was treated in 2022 with [facility] History of coronary disease status post CABG in 2019. Reason fraction was 55-60% as of 07/08/2023 History of congestive heart failure. 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 History of COPD with asthma. History of SLE/arthritis. History of AAA. Renal duplex done in 12/08/2019 did not reveal any significant renal artery stenosis. There was infrarenal abdominal aortic aneurysm measuring 3.1 cm in 2019. [facility] Medical History (Updated 07/05/24 @ 16:57 by Brannon Liz MD) Occlusion and stenosis of left vertebral artery CVA (cerebral vascular accident) Heart failure with recovered ejection fraction (HFrecEF) Abdominal aortic aneurysm Arthritis SLE (systemic lupus erythematosus related syndrome) CKD (chronic kidney disease) COPD with asthma Hyperlipidemia Hypertension Atherosclerotic cardiovascular disease Diabetes Surgical History Status post aorto-coronary artery bypass graft History of open heart surgery Family History Father Heart attack Social History Alcohol intake: never Patient Tobacco Use Status: Never used Tobacco Review of Systems Const Denies fever(s) and Denies weight loss Card Denies chest pain Resp Denies cough and Denies hemoptysis GI Denies abdominal pain, Denies diarrhea and Denies nausea Musc Denies back pain Neuro Denies focal weakness Physical Exam Vital Signs: Last Vital Signs Pulse 98 07/05/24 11:55 BP 198/110 H 07/05/24 11:55 Pulse Ox 93 07/05/24 11:55 Oxygen Delivery Method Room Air 07/05/24 11:55 BMI result Body Mass Index 21.6 Const General: comfortable; No acute distress Orientation/consciousness: patient oriented x3 Eyes General: appearance normal, both eyes and all related structures Visual Douglas: normal visual douglas by confrontation Neck Neck: Yes supple and Yes no JVD Resp Effort & Inspection: normal respiratory effort and respiratory effort not decreased Auscultation: rhonchi Cardio Palpation: no palpable S3 and no palpable S4 Heart sounds: no rubs GI Inspection: Yes normal to inspection Palpation (GI): Soft to palpation Percussion: Yes normal to percussion Auscultation: normal bowel sounds General: Yes no CVA tenderness Back/Spine/Pelvis Back: no CVA tenderness Skin General skin exam: no petechiae and no purpura Neuro General: patient oriented x3 and no focal motor deficits Extrem General: No clubbing and No edema Results Reviewed Nephrology Results: Hgb 11.3 g/dl (12.0-16.0) L 05/24/24 WBC 4.6 X10*3/uL (4.8-10.8) L 05/24/24 Plt Count 221 X10*3/uL (160-400) 05/24/24 Sodium 139 mmol/L (135-145) 05/24/24 Potassium 3.8 mmol/L (3.3-5.1) 05/24/24 Chloride 107 mmol/L (96-108) 05/24/24 Carbon Dioxide 25 mmol/L (22-29) 05/24/24 BUN 7 mg/dL (9-16) L 05/24/24 Creatinine 0.91 mg/dL (0.5-1.4) 05/24/24 Calcium 9.9 mg/dL (8.4-10.2) 05/24/24 Urine Protein Negative mg/dL (Neg-Trace) 05/24/24 Assessment & Plan Assessment & Plan (1) Hypertension: Code(s): I10 - Essential (primary) hypertension Category: Medical (2) Atrophy of left kidney: Code(s): N26.1 - Atrophy of kidney (terminal) Category: Medical Plan 63-year-old woman with a history of atrophic left kidney with a baseline creatinine of 0.9 mg/dL in the setting of coronary disease and significant peripheral vascular disease and infrarenal abdominal aortic aneurysm has resistant hypertension. Today blood pressure was significantly elevated. she is asymptomatic. Continue with current antihypertensive regimen. Discussed low-salt Add amlodipine 5 mg once a day. Titrate the dose as tolerated. She underwent abdominal ultrasonogram today. We will track down the results. She might very well have renal artery stenosis. Based on the results of the ultrasonogram I will plan for CT of renal arteries or an MRA. Medications: New amlodipine 5 mg PO DAILY 90 tabs 0RF Coding Level of Care Code New Pt Level 4 (77047) Diagnoses Hypertension I10 Atrophy of left kidney N26.1
[2024-07-05 11:55] VITALS: BP 198/110; PULSE 98; O2SAT 93; BMI 21.6
== END 2024-07-05 12:21 | disposition home or self-care (01) ==
PROVIDERS: PCP Nurse Practitioner Primary Care; Visit Provider Internal Medicine Hypertension Specialist
DX: I1A.0 Resistant hypertension (principal); N26.1 Atrophy of kidney (terminal); I71.43 Infrarenal abdominal aortic aneurysm, without rupture; Z95.1 Presence of aortocoronary bypass graft
CPT/HCPCS: 99204

== ENCOUNTER 2024-07-06 15:36 | Inpatient (IN) | payer MEDICAID, SELFPAY ==
[2024-07-06] VITALS (8 sets, daily range): BP systolic 127–207; BP diastolic 86–152; PULSE 72–94; RESP 16–18; TEMP 36.5–36.8; O2SAT 97–99; BMI 21.6
--- NOTE | ~2024-07-06 | CT_ITS ---
EXAMINATION: CTA CHEST, ABDOMEN AND PELVIS CLINICAL INFORMATION: Aortic dissection COMPARISON: CT abdomen pelvis 05/24/2024 CTA chest abdomen and pelvis 07/07/2018 TECHNIQUE: Multidetector volumetric imaging was performed from the thoracic inlet through the pubic symphysis both before as well as following administration of 80 mL of Omnipaque 350. Sagittal and coronal reformatted images were obtained on the technologist's workstation. Additional 2-D coronal and sagittal reformatted images and axial 3-D maximum intensity projection MIP images are generated on the CT workstation. This CT examination was performed using dose optimization techniques as appropriate, variously including the following: *Automated exposure control *Adjustment of mA and/or kV according to patient size (this includes techniques or standardized protocols for targeted exams where dose is matched to indication/reason for exam; i.e. extremities or head) *Use of iterative reconstruction technique DLP: 393 mGy-cm VASCULAR FINDINGS: The thoracic aorta is unremarkable without evidence of dissection, aneurysm or intramural hematoma. A tricuspid aortic valve is seen. Patient status post median sternotomy and CABG. Three-vessel branching pattern of the arch is seen with widely patent great vessels. Although not carried out for evaluation of pulmonary veins are pulmonary arteries there are well-seen. There is no evidence of pulmonary emboli. No thrombus is seen in the left atrial appendage. There is an infrarenal abdominal aortic aneurysm present maximal dimension of 3 cm. Eccentric thrombus is present. The aneurysm ends at the aortic bifurcation. Calcific atherosclerotic disease present in the common iliac arteries without stenosis. The internal iliac arteries are patent but diseased. The external iliac arteries are free of disease. Mild posterior plaque present in the common femoral arteries without stenosis. The proximal profunda femoris arteries and superficial femoral arteries appear unremarkable. The celiac and SMA are patent. The BENEDICTO origin does not fill. A stented right renal artery is patent. A stent in the left renal artery is patent NONVASCULAR FINDINGS: CHEST: LUNG: There is mild emphysema and bronchial thickening. MEDIASTINUM: Heart is mildly enlarged. No hilar or mediastinal lymphadenopathy. CORONARY ARTERY CALCIFICATION: Present PERICARDIUM/PLEURA: No significant effusion. No pleural mass or thickening. CHEST WALL/AXILLA: Status post median sternotomy and CABG. LIVER, GALLBLADDER, AND BILIARY TREE: The liver is normal in size, shape, and attenuation. A benign 1.5 cm hepatic cyst is present in the right lobe. No suspicious solid focal hepatic lesion or biliary ductal dilatation is present. The gallbladder is unremarkable with no evidence of radiopaque gallstones, gallbladder wall thickening, or obvious pericholecystic inflammatory changes. PANCREAS: Unremarkable. SPLEEN: Unremarkable. ADRENAL GLANDS: Unremarkable. KIDNEYS AND URETERS: The right kidney is normal in size. The lower pole the left kidney is atrophic. Multiple bilateral benign Bosniak class I renal cysts are noted which require no additional imaging or follow-up. No solid renal masses are seen. No nephrolithiasis or hydronephrosis. Normal. BLADDER: Unremarkable. GASTROINTESTINAL TRACT: The small and large bowel are unremarkable. The appendix is not seen but there is no evidence of appendicitis evidence of appendicitis. ABDOMINAL WALL: No significant hernia is appreciated. LYMPH NODES: No retroperitoneal lymphadenopathy. PELVIC VISCERA: The uterus and adnexa are unremarkable. OSSEOUS STRUCTURES: Degenerative changes are present spine with biconvex thoracolumbar scoliosis. CT/CT angio abdomen pelvis IMPRESSION: 1. No evidence of aortic dissection. 2. Infrarenal abdominal aortic aneurysm at 3 cm. 3. Bilateral renal artery stents are patent with associated atrophy of the lower pole of the left kidney. 4. Incidental note made of mild cardiomegaly, mild emphysema, benign hepatic cyst and degenerative changes in the spine. Fleischner guidelines were followed. Electronically signed by: Dominguez Sierra MD 07/06/2024 11:10 PM EDT
--- NOTE | ~2024-07-06 | XR_ITS ---
EXAMINATION: XR CHEST CLINICAL INFORMATION: Chest pain COMPARISON: 05/04/2024 TECHNIQUE: 2 views of the chest were obtained. FINDINGS: Evidence of previous chronic surgery similar. Heart size normal. Minimal pectus excavatum similar. No significant abnormality is noted involving the heart, lungs, mediastinum, bony thorax or soft tissues. XR/XR chest 2V IMPRESSION: No active chest disease. Electronically signed by: Steven Whitman MD 07/06/2024 04:46 PM EDT
--- NOTE | 2024-07-06 15:58 | ED_ITS ---
HPI - General Adult General Chief complaint: Chest Pain Stated complaint: l arm pain-high bp Time Seen by Provider: 07/06/24 17:41 History of Present Illness ED Provider: Tutu HPI narrative: 63 y/o F patient; PMH COPD, HTN, HFpEF, hx LAD stent, hx CABG, hx renal artery stent, CAD, SLE; presents from home reporting elevated blood pressure for the last one week associated with left-arm pain for the last one day. The patient was evaluated by her medical billing supervisor yesterday where her high blood pressure was noted and she was started on Amlodipine 5mg OD. Plan for out-patient MRA or CT of renal arteries. Noc Analyst: Dr. Ramos Renal: Dr. Liz Abdominal artery US showed fusiform aneurysm of the distal abdominal aorta measuring 3.5cm. Prior CT measured 3.2cm which given differences in technique was felt to be unchanged. Related Data Home Medications ?Medication ?Instructions ?Recorded ?Confirmed albuterol sulfate 90 mcg/actuation 2 puff inhalation Q6H PRN wheezing 06/27/24 07/05/24 aerosol inhaler (Ventolin HFA) ascorbic acid (vitamin C) 250 mg 250 mg PO DAILY 06/27/24 07/05/24 tablet aspirin 81 mg tablet,delayed 81 mg PO DAILY 06/27/24 07/05/24 release atorvastatin 40 mg tablet 40 mg PO DAILY 06/27/24 07/05/24 carvedilol 25 mg tablet 25 mg PO BID 06/27/24 07/05/24 clopidogrel 75 mg tablet 75 mg PO DAILY 06/27/24 07/05/24 duloxetine 60 mg capsule,delayed 60 mg PO DAILY 06/27/24 07/05/24 release empagliflozin 10 mg tablet 10 mg PO DAILY 06/27/24 07/05/24 (Jardiance) ferrous sulfate 325 mg (65 mg 325 mg PO DAILY 06/27/24 07/05/24 iron) tablet (FeroSul) furosemide 20 mg tablet 20 mg PO DAILY 06/27/24 07/05/24 gabapentin 800 mg tablet 800 mg PO TID 06/27/24 07/05/24 nitroglycerin 0.4 mg sublingual 0.4 mg sublingual DAILY 06/27/24 07/05/24 tablet pantoprazole 40 mg tablet,delayed 40 mg PO QAM 06/27/24 07/05/24 release sacubitril 97 mg-valsartan 103 mg 1 tab PO BID 06/27/24 07/05/24 tablet (Entresto) trazodone 150 mg tablet 150 mg PO BEDTIME 06/27/24 07/05/24 umeclidinium 62.5 mcg/actuation 1 inh inhalation DAILY 06/27/24 07/05/24 blister powder for inhalation (Incruse Ellipta) budesonide-formoterol HFA 160 2 puff inhalation BID 07/05/24 07/05/24 mcg-4.5 mcg/actuation aerosol inhaler (Symbicort) Previous Rx's ?Medication ?Instructions ?Recorded amlodipine 5 mg tablet 5 mg PO DAILY #90 tabs 07/05/24 Allergies Allergy/AdvReac Type Severity Reaction Status Date / Time cat dander [CAT DANDER] Allergy Mild ITCHY EYES Verified 07/06/24 15:59 Review of Systems 2 Review of Systems: Yes all other systems are reviewed and are negative Neurologic: Denies Sensory deficit (Neuro) [facility] Past Medical History Attestation statement: The following information was validated with the patient. Source: old records reviewed Medical History Occlusion and stenosis of left vertebral artery CVA (cerebral vascular accident) Heart failure with recovered ejection fraction (HFrecEF) Abdominal aortic aneurysm Arthritis SLE (systemic lupus erythematosus related syndrome) CKD (chronic kidney disease) COPD with asthma Hyperlipidemia Hypertension Atherosclerotic cardiovascular disease Diabetes Surgical History Status post aorto-coronary artery bypass graft History of open heart surgery Family History Family History Father Heart attack Social History Social History Alcohol intake: never Patient Tobacco Use Status: Never used Tobacco Smoked in Last 30 Days: No Substance Use Type: Marijuana Advance Directives: No Advance Directives Information Provided: No Do you have a plan to hurt others: No Plan Physical Exam ED Vital Signs: Vital Signs - 24 hr 07/06/24 15:55 07/06/24 17:49 07/06/24 18:34 Temperature 98.2 F 97.8 F Pulse Rate 81 72 Respiratory Rate 16 16 Blood Pressure 207/112 H 199/118 H 205/152 H Pulse Oximetry 98 99 Oxygen Delivery Method Room Air Room Air 07/06/24 18:34 07/06/24 19:38 07/06/24 20:33 Temperature 97.7 F Pulse Rate 78 Respiratory Rate 18 Blood Pressure 205/152 H 205/111 H 194/109 H Pulse Oximetry 98 Oxygen Delivery Method Room Air BMI result Body Mass Index 21.6 Patient is afebrile, quite hypertensive. Const General: cooperative and no acute distress Orientation/consciousness: patient oriented x3 HENMT Head: Yes atraumatic Eyes General: appearance normal, both eyes and all related structures Pupils: Equal, round and reactive pupils present EOM: EOMs intact bilaterally Neck Neck: Yes normal visual inspection, Yes full ROM, Yes supple and No tender Chest Chest palpation & inspection: normal inspection of the chest and normal palpation of entire chest wall Resp Effort & Inspection: normal respiratory effort, no cough and no respiratory distress Auscultation: clear to auscultation bilaterally Cardio Rate: regular rate Rhythm: regular rhythm Peripheral pulses: Peripheral pulses 2+ throughout GI Inspection: Yes normal to inspection, No Abdominal wall edema and No distended Palpation (GI): Soft to palpation, not firm, nontender, no guarding and not rigid Auscultation: normal bowel sounds Back/Spine/Pelvis Back: No back tenderness Neuro General: patient oriented x3 Cranial nerves: Yes Equal, round and reactive pupils present Motor exam (neuro): 5/5 motor strength present throughout Sensory Exam: No Sensory deficit (Neuro) Course Course Course Narrative: This is a rapid medical exam performed by Dora Beckwith NP: Additional HPI, ROS, PE not included below will be deferred to primary provider. Patient is a 63y/o F with history of CKD, HFrecEF, s/p CABG presenting with chest pain, left arm pain, high bp. Plan: EKG, labs, CXR Reevaluation(s) Reevaluation #1: The patient is afebrile, quite hypertensive. Reviewed prior records including recent cardiology and nephrology visits. Discussed with nephrology. Currently patient's anti-hypertensive medications are: carvedilol 25 mg PO BID furosemide 20 mg PO DAILY sacubitril-valsartan 97-103 mg (Entresto) 1 tab PO BID amlodipine 5mg PO OD Nephrology recommends increasing to Lasix 20mg PO BID and Amlodipine 10mg PO OD. Provided these medications now. Cardiology recommends UA to assess for sediment and Hydralazine 10mg IV. They recommend admission. They also recommend CTA to assess thoracic aorta. Plan: Admit to hospitalist Condition: Stable Medications Administered Discontinued Medications Generic Name Dose Route Start Last Admin Trade Name Freq PRN Reason Stop Dose Admin Amlodipine Besylate 10 mg 07/06/24 17:58 07/06/24 18:34 Amlodipine Besylate 10 Mg Tablet PO 07/06/24 17:59 10 mg ONCE ONE Administration Protocol Furosemide 20 mg 07/06/24 17:58 07/06/24 18:34 Furosemide 20 Mg Tablet PO 07/06/24 17:59 20 mg ONCE ONE Administration Protocol Hydralazine HCl 10 mg 07/06/24 19:38 07/06/24 20:33 Hydralazine Hcl 20 Mg/Ml Vial IVPUSH 07/06/24 19:39 10 mg ONCE ONE Administration Protocol Medical Decision Making Lab Data 07/06/24 18:04 07/06/24 18:04 Labs: Lab Results 07/06/24 Range/Units 18:04 WBC 4.5 L (4.8-10.8) X10*3/uL RBC 4.52 (4.20-5.50) X10*6/uL Hgb 11.0 L (12.0-16.0) g/dl Hct 35.9 L (37.0-47.0) % MCV 79.4 L (80.0-98.0) fL MCH 24.3 L (27.0-33.0) pg MCHC 30.6 L (31.0-35.0) g/dl RDW 15.4 (11.0-16.0) % Plt Count 195 (160-400) X10*3/uL MPV 10.6 (9.4-12.3) fL Immature Gran % (Auto) 0.0 (0.0-0.4) % Neut % (Auto) 25.6 L (45-73) % Lymph % (Auto) 52.5 H (20-40) % Wallace % (Auto) 13.2 H (2-11) % Eos % (Auto) 8.3 H (0-4) % Baso % (Auto) 0.4 (0-2) % Lymph # (Auto) 2.4 (1.2-4.9) X10*3/uL Wallace # (Auto) 0.6 (0.1-1.2) X10*3/uL Eos # (Auto) 0.4 (0.0-0.4) X10*3/uL Baso # (Auto) 0.0 (0.0-0.2) X10*3/uL Abs Immat Gran (auto) 0.00 (0.00-0.03) X10*3/uL Absolute Neuts (auto) 1.2 L (2.0-8.3) x10*3/uL Absolute Nucleated RBC 0.000 (0.0-0.012) X10*3/uL Nucleated RBC % (auto) 0.0 (0.0-0.2) /100WBC PT 12.5 (11.1-13.3) SEC INR 1.0 (0.9-1.1) Sodium 141 (135-145) mmol/L Potassium 3.2 L (3.3-5.1) mmol/L Chloride 107 (96-108) mmol/L Carbon Dioxide 26 (22-29) mmol/L Anion Gap 11 L (12-20) BUN 14 (9-16) mg/dL Creatinine 0.96 (0.5-1.4) mg/dL Estim Creat Clear Calc 49.6 Estimated GFR 59 Random Glucose 90 (60-115) mg/dL Calcium 10.1 (8.4-10.2) mg/dL Total Bilirubin 0.5 (0.0-1.0) mg/dL AST 19 (5-31) U/L ALT 9 (0-31) U/L Alkaline Phosphatase 85 (39-117) U/L Troponin I High Sens 4.9 D (<3.5-17.0) ng/L B-Natriuretic Peptide 121 H (<100) pg/mL Total Protein 7.6 (6.5-8.0) g/dL Albumin 4.2 (3.5-5.0) g/dL Independent Interpretation I performed an independent interpretation of an: EKG Interpretation: NSR 79BPM with appropriate intervals. Radiology Impression Discussion of test interpretation with radiology: I have reviewed the radiologist's reading. Radiologist Impression: EXAMINATION: XR CHEST CLINICAL INFORMATION: Chest pain COMPARISON: 05/04/2024 TECHNIQUE: 2 views of the chest were obtained. FINDINGS: Evidence of previous chronic surgery similar. Heart size normal. Minimal pectus excavatum similar. No significant abnormality is noted involving the heart, lungs, mediastinum, bony thorax or soft tissues. XR/XR chest 2V IMPRESSION: No active chest disease. Electronically signed by: Steven Whitman MD 07/06/2024 04:46 PM EDT Discharge Plan Discharge Clinical Impression: Hypertension, Chest pain Patient Disposition: Admitted As Inpatient Print Language: Romansh
--- NOTE | 2024-07-06 15:59 | ECG_ITS ---
Test Reason : CHEST PAIN Blood Pressure : / mmHG Vent. Rate : 079 BPM Atrial Rate : 079 BPM P-R Int : 146 ms QRS Dur : 090 ms QT Int : 418 ms P-R-T Axes : 001 068 026 degrees QTc Int : 479 ms Normal sinus rhythm Possible Left atrial enlargement Septal infarct , age undetermined Abnormal ECG When compared with ECG of 04-MAY-2024 13:26, Septal infarct is now Present Referred By: Ward Rosas Electronically Signed By:JACINTO PATEL
--- NOTE | 2024-07-06 17:39 | MHC.EDTECH ---
EKG performed. results did not cross over in system.
[2024-07-06 18:08] LABS: MANUAL DIFF FLAG NO
[2024-07-06 18:10] LABS: Basophils Percent Auto 0.4 % (0-2); Eosinophils Absolute Auto 0.4 X10*3/uL (0.0-0.4); Eosinophils Percent Auto 8.3 % (0-4); Hematocrit 35.9 % (37.0-47.0); Lymphocytes Absolute Auto 2.4 X10*3/uL (1.2-4.9); Lymphocytes Percent Auto 52.5 % (20-40); Mean Corpuscular HGB Conc 30.6 g/dl (31.0-35.0); Mean Corpuscular Hemoglobin 24.3 pg (27.0-33.0); Mean Corpuscular Volume 79.4 fL (80.0-98.0); Mean Platelet Volume 10.6 fL (9.4-12.3); Monocytes Absolute Auto 0.6 X10*3/uL (0.1-1.2); Monocytes Percent Auto 13.2 % (2-11); Neutrophils Absolute Auto 1.2 x10*3/uL (2.0-8.3); Neutrophils Percent Auto 25.6 % (45-73); Platelet Count 195 X10*3/uL (160-400); Red Blood Count 4.52 X10*6/uL (4.20-5.50); Red Cell Distribution Width 15.4 % (11.0-16.0); White Blood Count 4.5 X10*3/uL (4.8-10.8)
[2024-07-06 18:19] LABS: Prothrombin Time 12.5 SEC (11.1-13.3)
[2024-07-06 18:27] LABS: Alanine Aminotransferase 9 U/L (0-31); Albumin Level 4.2 g/dL (3.5-5.0); Alkaline Phosphatase 85 U/L (39-117); Anion Gap 11 (12-20); Aspartate Amino Transferase 19 U/L (5-31); Bilirubin Total 0.5 mg/dL (0.0-1.0); Blood Urea Nitrogen 14 mg/dL (9-16); Calcium 10.1 mg/dL (8.4-10.2); Carbon Dioxide 26 mmol/L (22-29); Chloride 107 mmol/L (96-108); Creatinine Clr Calc Pharmacy 49.6; Estimated Glomerular Filt Rate 59; Glucose Random 90 mg/dL (60-115); Potassium 3.2 mmol/L (3.3-5.1); Sodium 141 mmol/L (135-145); Total Protein 7.6 g/dL (6.5-8.0)
[2024-07-06 18:33] LABS: B Type Natriuretic Peptide 121 pg/mL (<100)
[2024-07-06 18:34] LABS: Troponin-I High Sensitivity 4.9 ng/L (<3.5-17.0)
[2024-07-06] MEDS: amLODIPine Besylate 10 MG TABLET PO (18:34)
[2024-07-06] MEDS: Furosemide 20 MG TABLET PO (18:34)
[2024-07-06] MEDS: hydrALAZINE HCl 20 MG/ML VIAL 10 MG IVPUSH (20:33)
--- NOTE | 2024-07-06 21:07 | PHA.MEDREC ---
Addendum entered by Nahum Paredes [facility] 07/06/24 21:19: Med rec reviewed Original Note: Pharmacy Consult ? Medication Reconciliation Pharmacy has completed the medication reconciliation. Confirmed medications with patient and list patient brought in from Dr office. I went though and confirmed medications due to her list not being clear and had duplicated discontinued medications but patient was able to confirm what she is taking. I was able to confirm she started the Amlodipine 5mg tab once daily and has been compliant with taking it. She confirmed she took her medications last this morning.
[2024-07-06 21:13] LABS: Troponin-I High Sensitivity 5.4 ng/L (<3.5-17.0)
[2024-07-06] MEDS: oxyCODONE HCl Immed Release 5 MG TABLET PO (22:56)
[2024-07-06 23:37] LABS: Appearance Urine Clear; Color Urine Yellow; Glucose Urine UA Negative (Negative); Leukocyte Esterase Urine Trace (Negative); Nitrite Urine Negative (Negative); UMIC TRIGGER UACC YES; Urine Blood Negative (Negative); Urine Ketones Negative (Negative); Urine Protein Negative (Neg-Trace)
--- NOTE | 2024-07-06 23:39 | PM.IMHP ---
History of Present Illness Date of Service: 07/06/24 Attending physician on admission: Ward Rosas Chief Complaint: High blood pressure Estephania Bill is a 63 years old woman with past medical history significant for AAA, hypertension, hyperlipidemia, COPD -no home O2, CVA, bilateral renal stents placement and HFrEF presents to the emergency department complaining of elevated blood pressure. She stated that yesterday she was seen by nephrology and was found to have a systolic blood pressure > 200 was prescribed to start amlodipine 5 mg p.o. daily. She stated that she persistent with markedly elevated blood pressure associated with mid-chest tightness radiating to the left and some shortness on breath. She also reports generalized headache and fatigue. Denied visual disturbances and nausea. Denied vomiting, abdominal pain, vomiting, palpitations, fever or chills. Denied tobacco smoking, alcohol abuse or illicit drug use. In the ED, she was initially found with a blood pressure 207/112. Other vital signs are normal. Blood workup showed mild neutropenia and anemia which are at baseline. INR is normal. Potassium is 3.2. Renal function and LFTs are normal. There are no electrolyte imbalances. Chest, abdomen and pelvis CTA showed no evidence of aortic dissection. There is an infrarenal abdominal aortic aneurysm at 3 cm, bilateral renal stents with associated atrophy of lower pole of the left kidney, mild cardiomegaly mild emphysema and benign hepatic cyst. ED tx: Amlodipine 10 mg p.o., Lasix 20 mg p.o., hydralazine 10 mg IV, oxycodone 5 mg p.o. Review of Systems Review of Systems: All 12 systems were reviewed and normal except as noted in HPI. [facility] Medical History Occlusion and stenosis of left vertebral artery CVA (cerebral vascular accident) Heart failure with recovered ejection fraction (HFrecEF) Abdominal aortic aneurysm Arthritis SLE (systemic lupus erythematosus related syndrome) CKD (chronic kidney disease) COPD with asthma Hyperlipidemia Hypertension Atherosclerotic cardiovascular disease Diabetes Family History Father Heart attack Surgical History Status post aorto-coronary artery bypass graft History of open heart surgery Social History Alcohol intake: never Patient Tobacco Use Status: Never used Tobacco Smoked in Last 30 Days: No Substance Use Type: Marijuana Advance Directives: No Advance Directives Information Provided: No Do you have a plan to hurt others: No Plan Meds Allergies Allergy/AdvReac Type Severity Reaction Status Date / Time cat dander [CAT DANDER] Allergy Mild ITCHY EYES Verified 07/06/24 15:59 Active Medications: Current Medications Acetaminophen (Acetaminophen 325 Mg Tablet) 975 mg PO Q6H PRN PRN Reason: Pain, Mild (Pain Scale 1-3), fever or headache Amlodipine Besylate (Amlodipine Besylate 5 Mg Tablet) 5 mg PO DAILY [facility]; Protocol Ascorbic Acid (Ascorbic Acid 250 Mg Tablet) 250 mg PO DAILY [facility] Aspirin (Aspirin Enteric Coated 81 Mg Tablet.Dr) 81 mg PO DAILY [facility] Atorvastatin Calcium (Atorvastatin Calcium 40 Mg Tablet) 40 mg PO DAILY [facility] Carvedilol (Carvedilol 25 Mg Tablet) 25 mg PO BID [facility]; Protocol Clopidogrel Bisulfate (Clopidogrel Bisulfate 75 Mg Tablet) 75 mg PO DAILY [facility] Duloxetine HCl (Duloxetine Hcl 60 Mg Capsule.Dr) 60 mg PO DAILY [facility] Empagliflozin (Empagliflozin 10 Mg Tablet) 10 mg PO DAILY [facility] Furosemide (Furosemide 20 Mg Tablet) 20 mg PO DAILY [facility]; Protocol Gabapentin (Gabapentin 400 Mg Capsule) 800 mg PO TID [facility] Heparin Sodium (Porcine) (Heparin Sodium,Porcine 5,000 Unit/Ml Vial) 5,000 unit SUBCUT Q8H [facility] Nitroglycerin (Nitroglycerin 0.4 Mg Tab.Subl) 0.4 mg SUBLINGUAL Q5M PRN PRN Reason: Chest Pain Non-Formulary Medication (Budesonide-Formoterol [Symbicort]) 2 puff INHALE BID [facility] Non-Formulary Medication (Ferrous Sulfate [Ferosul]) 325 mg PO DAILY [facility] Non-Formulary Medication (Pantoprazole) 40 mg PO DAILY@0630 [facility] Non-Formulary Medication (Umeclidinium [Incruse Ellipta]) 1 inhalation INHALE DAILY [facility] Sacubitril/Valsartan (Sacubitril/Valsartan 97/103 1 Tab Tablet) 1 tab PO BID [facility]; Protocol Sodium Chloride (0.9 % Sodium Chloride Flush 3 Ml Syringe) 3 ml IVFLUSH QSHIFT [facility] Trazodone HCl (Trazodone Hcl 50 Mg Tablet) 150 mg PO BEDTIME [facility] Home Medications ?Medication ?Instructions ?Recorded ?Confirmed ?Last Taken ?Type albuterol sulfate 90 mcg/actuation 2 puff inhalation Q6H PRN wheezing 06/27/24 07/06/24 07/06/24 08:00 History aerosol inhaler (Ventolin HFA) ascorbic acid (vitamin C) 250 mg 250 mg PO DAILY 06/27/24 07/06/24 07/06/24 08:00 History tablet aspirin 81 mg tablet,delayed 81 mg PO DAILY 06/27/24 07/06/24 07/06/24 08:00 History release atorvastatin 40 mg tablet 40 mg PO DAILY 06/27/24 07/06/24 07/06/24 08:00 History carvedilol 25 mg tablet 25 mg PO BID 06/27/24 07/06/24 07/06/24 08:00 History clopidogrel 75 mg tablet 75 mg PO DAILY 06/27/24 07/06/24 07/06/24 08:00 History duloxetine 60 mg capsule,delayed 60 mg PO DAILY 06/27/24 07/06/24 07/06/24 08:00 History release empagliflozin 10 mg tablet 10 mg PO DAILY 06/27/24 07/06/24 07/06/24 08:00 History (Jardiance) ferrous sulfate 325 mg (65 mg 325 mg PO DAILY 06/27/24 07/06/24 07/06/24 08:00 History iron) tablet (FeroSul) furosemide 20 mg tablet 20 mg PO DAILY 06/27/24 07/06/24 07/06/24 08:00 History gabapentin 800 mg tablet 800 mg PO TID 06/27/24 07/06/24 07/06/24 08:00 History nitroglycerin 0.4 mg sublingual 0.4 mg sublingual Q5M PRN Chest 06/27/24 07/06/24 07/06/24 08:00 History tablet Pain pantoprazole 40 mg tablet,delayed 40 mg PO DAILY@0630 06/27/24 07/06/24 07/06/24 08:00 History release sacubitril 97 mg-valsartan 103 mg 1 tab PO BID 06/27/24 07/06/24 1 Week Ago History tablet (Entresto) ~06/29/24 trazodone 150 mg tablet 150 mg PO BEDTIME 06/27/24 07/06/24 07/05/24 History umeclidinium 62.5 mcg/actuation 1 inh inhalation DAILY 06/27/24 07/06/24 07/06/24 08:00 History blister powder for inhalation (Incruse Ellipta) budesonide-formoterol HFA 160 2 puff inhalation BID 07/05/24 07/06/24 07/06/24 08:00 History mcg-4.5 mcg/actuation aerosol inhaler (Symbicort) Physical Exam Vital Signs and Narrative: Vital Signs: Last Vital Signs Temp 97.7 F 07/06/24 19:38 Pulse 94 07/06/24 22:10 Resp 16 07/06/24 22:10 BP 160/92 H 07/06/24 22:10 Pulse Ox 99 07/06/24 22:10 O2 Del Method Room Air 07/06/24 22:10 BMI result Body Mass Index 21.6 Constitutional - Awake and Alert, No apparent distress. Pleasant. Cooperative. HEENT - PERRL, EOMI Heart - S1S2, RRR. Lungs - Normal lung expansion, Normal respiratory effort, No respiratory distress, CTA bilaterally Abdomen - NT / ND; +BS; No rebound or guarding Extremities - no calf tenderness bilaterally, no swelling Musculoskeletal - Normal inspection, normal ROM Skin - Warm/Dry Neurological - Alert & oriented x3. No focal weakness grossly noted. Normal speech. Psychological - Appropriate affect Results Labs 07/06/24 18:04 07/06/24 18:04 Labs: Laboratory Results - last 24 hr 07/06/24 07/06/24 18:04 20:39 MCV 79.4 L MCH 24.3 L MCHC 30.6 L RDW 15.4 Plt Count 195 MPV 10.6 Immature Gran % (Auto) 0.0 Neut % (Auto) 25.6 L Lymph % (Auto) 52.5 H Rolette % (Auto) 13.2 H Eos % (Auto) 8.3 H Baso % (Auto) 0.4 Lymph # (Auto) 2.4 Rolette # (Auto) 0.6 Eos # (Auto) 0.4 Baso # (Auto) 0.0 Abs Immat Gran (auto) 0.00 Absolute Neuts (auto) 1.2 L Absolute Nucleated RBC 0.000 Nucleated RBC % (auto) 0.0 PT 12.5 INR 1.0 Anion Gap 11 L Estim Creat Clear Calc 49.6 Estimated GFR 59 Random Glucose 90 Calcium 10.1 Total Bilirubin 0.5 AST 19 ALT 9 Alkaline Phosphatase 85 Troponin I High Sens 4.9 D 5.4 B-Natriuretic Peptide 121 H Total Protein 7.6 Albumin 4.2 ECG Attestation: I personally reviewed and interpreted this ECG as follows: (Normal sinus rhythm, heart rate 79 beats per minute. No acute ischemic changes.) Imaging Radiologist's Impressions: Impressions Chest X-Ray 07/06/24 15:59 IMPRESSION: No active chest disease. Electronically signed by: Steven Whitman MD 07/06/2024 04:46 PM EDT RP Abdomen/Pelvis CTA 07/06/24 20:06 IMPRESSION: 1. No evidence of aortic dissection. 2. Infrarenal abdominal aortic aneurysm at 3 cm. 3. Bilateral renal artery stents are patent with associated atrophy of the lower pole of the left kidney. 4. Incidental note made of mild cardiomegaly, mild emphysema, benign hepatic cyst and degenerative changes in the spine. Fleischner guidelines were followed. Electronically signed by: Dominguez Sierra MD 07/06/2024 11:10 PM EDT RP Chest CTA 07/06/24 20:06 IMPRESSION: 1. No evidence of aortic dissection. 2. Infrarenal abdominal aortic aneurysm at 3 cm. 3. Bilateral renal artery stents are patent with associated atrophy of the lower pole of the left kidney. 4. Incidental note made of mild cardiomegaly, mild emphysema, benign hepatic cyst and degenerative changes in the spine. Fleischner guidelines were followed. Electronically signed by: Dominguez Sierra MD 07/06/2024 11:10 PM EDT RP Assessment and Plan (1) Hypertensive emergency: Status: Acute (2) Chest pain: Qualifiers: Chest pain type: unspecified Qualified Code(s): R07.9 - Chest pain, unspecified Status: Acute (3) Heart failure with recovered ejection fraction (HFrecEF): Status: Acute (4) Hypokalemia: Status: Acute Plan Estephania Bill is a 63 y/o woman with PMHx significant for AAA admitted with: Hypertensive emergency, improving: target organ: Chest pain (now resolved). ECG no ischemia, troponin neg X2. Admit to hospitalist service. Telemetry. Received treatment with, hydralazine IV, amlodipine 10 mg PO and Lasix 20 mg IV in the ED. Continue amlodipine 10 mg p.o. daily (she was taking 5 mg PO). Continue carvedilol 25 mg p.o. b.i.d., furosemide 20 mg p.o. daily and Entresto. Check troponin in the morning. Cardiology consult. Hypokalemia, mild likely due to furosemide use. Replete as needed. Continue to monitor K level. HFrEF. No in acute exacerbation. Continue furosemide, Jardiance and carvedilol. Hyperlipidemia. Continue atorvastatin. COPD. No home oxygen. Not in acute exacerbation. Continue home inhalers. s/p bilateral renal stent placement, hx of CVA and CAD s/p CABG. Continue Plavix, aspirin statin. DVT prophylaxis: Taking Plavix and aspirin. Code status: Full Patient will need hospitalization for at least 2 midnights for hypertensive emergency treatment with IV antihypertensive agents and close monitoring of blood pressure. Patient also will need evaluation by subspecialty. Quality Stroke Does the patient have a stroke diagnosis?: No VTE Prior VTE?: No VTE Risk Level:: Medical - moderate - high VTE Device Contraindication: Treatment Not Indicated VTE Drug Contraindication: N/A - Med Ordered
[2024-07-06 23:42] LABS: Bacteria Urine None Seen (None Seen); Hyaline Casts Urine 0-2 /LPF (0-2); RBC Urine 0-2 /HPF (0-2); WBC Urine 0-5 /HPF (0-5)
[2024-07-06] MEDS: carvediloL 25 MG TABLET PO (23:48)
[2024-07-06] MEDS: Acetaminophen 325 MG TABLET 975 MG PO (23:49)
[2024-07-06] MEDS: 0.9 % Sodium Chloride Flush 3 ML SYRINGE IVFLUSH (23:50)
[2024-07-07] VITALS (13 sets, daily range): BP systolic 110–180; BP diastolic 65–93; PULSE 69–91; RESP 11–20; TEMP 36.7; O2SAT 96–100; BMI 22.5
--- NOTE | 2024-07-07 | ECG_ITS ---
Test Reason : CHANGE IN RHYTHM/ VOMITING Blood Pressure : / mmHG Vent. Rate : 078 BPM Atrial Rate : 078 BPM P-R Int : 144 ms QRS Dur : 090 ms QT Int : 442 ms P-R-T Axes : 057 -30 -34 degrees QTc Int : 503 ms Sinus rhythm with occasional Premature ventricular complexes Possible Left atrial enlargement Left axis deviation Septal infarct (cited on or before 06-JUL-2024) ST & T wave abnormality, consider anterolateral ischemia Abnormal ECG When compared with ECG of 06-JUL-2024 15:56, Premature ventricular complexes are now Present QRS axis Shifted left Serial changes of Septal infarct Present T wave inversion now evident in Anterolateral leads Referred By: Ward Rosas Electronically Signed By:JACINTO PATEL
[2024-07-07] MEDS: Potassium Chloride Packet 20 MEQ PACKET 40 MEQ PO (01:19)
[2024-07-07 04:39] LABS: MANUAL DIFF FLAG NO
[2024-07-07 04:41] LABS: Basophils Percent Auto 0.4 % (0-2); Eosinophils Absolute Auto 0.1 X10*3/uL (0.0-0.4); Eosinophils Percent Auto 1.5 % (0-4); Hematocrit 38.3 % (37.0-47.0); Hemoglobin 12.2 g/dl (12.0-16.0); Imm Gran Abs Auto 0.01 X10*3/uL (0.00-0.03); Imm Gran Pct Auto 0.2 % (0.0-0.4); Lymphocytes Absolute Auto 1.4 X10*3/uL (1.2-4.9); Lymphocytes Percent Auto 26.6 % (20-40); Mean Corpuscular HGB Conc 31.9 g/dl (31.0-35.0); Mean Corpuscular Hemoglobin 24.8 pg (27.0-33.0); Mean Platelet Volume 10.8 fL (9.4-12.3); Monocytes Absolute Auto 0.5 X10*3/uL (0.1-1.2); Monocytes Percent Auto 8.7 % (2-11); Neutrophils Absolute Auto 3.3 x10*3/uL (2.0-8.3); Neutrophils Percent Auto 62.6 % (45-73); Platelet Count 221 X10*3/uL (160-400); Red Blood Count 4.91 X10*6/uL (4.20-5.50); Red Cell Distribution Width 15.2 % (11.0-16.0); White Blood Count 5.3 X10*3/uL (4.8-10.8)
[2024-07-07 05:01] LABS: Anion Gap 14 (12-20); Blood Urea Nitrogen 15 mg/dL (9-16); Calcium 10.4 mg/dL (8.4-10.2); Carbon Dioxide 25 mmol/L (22-29); Chloride 104 mmol/L (96-108); Creatinine Clr Calc Pharmacy 45.7; Estimated Glomerular Filt Rate 54; Glucose Random 114 mg/dL (60-115); Potassium 3.9 mmol/L (3.3-5.1); Sodium 139 mmol/L (135-145)
[2024-07-07 05:10] LABS: Troponin-I High Sensitivity 3.2 ng/L (<3.5-17.0)
--- NOTE | 2024-07-07 05:32 | PC.NURSE ---
Patient resting on a stretcher bed with eyes closed, resp even and unlabored, no s/s of acute distress.
[2024-07-07] MEDS: Omeprazole 20 MG CAPSULE.DR PO (06:35)
[2024-07-07] MEDS: Acetaminophen 325 MG TABLET 975 MG PO (06:36)
--- NOTE | 2024-07-07 06:47 | PC.NURSE ---
Patient requesting muscle relaxer for cramp like pain in b/l lower legs ranging from 3-7/10. Dr. Covington notified, no new orders at this time.
[2024-07-07] MEDS: Cyclobenzaprine HCl 10 MG TABLET PO (06:56)
--- NOTE | 2024-07-07 07:00 | CA_ITS ---
Transthoracic Echocardiogram Patient (Last, First, Middle): Estephania Bill, Gender: Female Date of : 1960 Age: 63 Procedure Date: 07/07/2024 Procedure Type: Transthoracic Echocardiogram Location: ER Height: 160.02 cm Weight: 57.61 kg BSA: 1.59 m2 Heart Rate: bpm BP: 118 / 65 mmHg Methods Time Analyst: TO Referring MD: Orville Rosario MD Foil Spooler: Cristiano Farfan MD Symptoms: chest pain Study Quality: Fair/Contrast ECG Rhythm: Sinus Conclusions: - 1. Normal LV ejection fraction 55-60% with impaired relaxation filling pattern 2. Normal cardiac valvular Dopplers 3. Normal RV systolic pressure 4. Trivial pericardial effusion Findings Procedure Information The study quality is limited by lung artifact. Left Ventricle Normal left ventricular size, thickness, and systolic function. The visually estimated ejection fraction is between 55-60%. Spectral Doppler is indicative of an impaired relaxation filling pattern. E/E prime ratio is between 8 and 15 consistent with indeterminate filling pressures. Wall Motion Rest Echo Findings The basal inferior and basal inferoseptal segments are hypokinetic. All other scored wall segments showed normal motion. Right Ventricle Normal right ventricular cavity size and systolic function. Atria Both atria are normal in size. Interatrial shunt cannot be excluded. Aortic Valve The aortic valve was not well visualized. There is no aortic valve stenosis. There is no aortic valve regurgitation. Mitral Valve Likely normal mitral valve structure and function. There is trace mitral valve regurgitation. There is no mitral valve stenosis. Pulmonic Valve The pulmonic valve was not well visualized. Tricuspid Valve Likely normal tricuspid valve structure and function. Tricuspid regurgitation envelope is inadequate for calculation of right ventricular systolic pressure. Normal right atrial pressure. Great Vessels All visible segments of the aorta are normal in size. The pulmonary artery was not well visualized. There is no dilatation of the ascending aorta measuring 2.80 cm. There is no evidence of plaque in the aorta. Venous The inferior vena cava is normal in size and collapses greater than 50% with inspiration. Pericardium/Pleural There is a trivial loculated pericardial effusion overlying the left ventricle. Prior Study Comparison No significant change compared to prior study dated: 07/14/2018. Measurements 2D Linear Measurements IVSd: 0.95 0.6-0.9/0.6-1.0 cm LVIDd: 4.46 3.9-5.3/4.2-5.9 cm LVIDd Index: 2.81 2.4-3.2/2.2-3.1 cm/m2 LVIDs: 2.96 2.0-3.6 cm LVPWd: 0.88 0.7-1.1 cm LA Diam: 2.50 2.7-3.8/3.0-4.0 cm LAIDs Index: 1.57 1.5-2.3 cm/m2 LV Mass: 166.30 67-162/88-224 g LV Mass Index: 104.59 43-95/49-115 g/m2 LVOT Diam: 2.20 3.0+(-)1.3 cm 2D Systolic Function EF 4C: 61.30 >55% EF 2C: 59.30 >55% EF BiP: 59.00 >55% Mitral Valve MV Pk E: 0.41 MV PK A: 0.55 MV Decel Time: 280.00 E/A: 0.70 E'Lateral: 7.62 E'Medial: 4.90 E/E' Med: 8.30 E/E' Lat: 5.30 PHT: 82.00 MVA PHT: 2.68 Decel [place]: 1.45 Aortic Valve AoV Pk Joe: 1.25 AoV Mn Joe: 0.86 AoV VTI: 0.25 AoV Pk Grad: 6.00 Aov Mn Grad: 3.00 MOISES Cont.VTI: 2.34 LVOT LVOT Pk Joe: 0.67 LVOT Mn Joe: 0.42 LVOT VTI: 0.16 LVOT Pk Grad: 2.00 LVOT Mn Grad: 1.00 LVOT Diam: 2.20 LVOT Area: 3.80 Diastolic Function MV Pk E: 0.41 MV Pk A: 0.55 E/A: 0.70 E'Medial: 4.90 E/E' Med: 8.30 E' Laterial: 7.62 E/E' Lat: 5.30 Right Ventricle TAPSE (mm): 11.10 TVS' Joe: 9.25 Tricuspid Valve RA Press: 3.00 Great Vessels Aorta Sinus of Valsalva: 2.95 2.0-3.5 cm Ao Asc: 2.80 2.1-3.4 cm Updated in Other Vendor System with Status of Final Cristiano Naheed MD electronically signed on 07/07/2024 3:46:03 PM with status of Final
[2024-07-07] MEDS: Empagliflozin 10 MG TABLET PO (08:35)
[2024-07-07] MEDS: Ascorbic Acid 250 MG TABLET PO (08:35)
[2024-07-07] MEDS: Atorvastatin Calcium 40 MG TABLET PO (08:35)
[2024-07-07] MEDS: carvediloL 25 MG TABLET PO ×2 (08:35→22:17)
[2024-07-07] MEDS: Aspirin Enteric Coated 81 MG TABLET.DR PO (08:36)
[2024-07-07] MEDS: amLODIPine Besylate 10 MG TABLET PO (08:36)
[2024-07-07] MEDS: Clopidogrel Bisulfate 75 MG TABLET PO (08:36)
[2024-07-07] MEDS: Furosemide 20 MG TABLET PO (08:36)
[2024-07-07] MEDS: DULoxetine HCl 60 MG CAPSULE.DR PO (08:36)
[2024-07-07] MEDS: Ferrous Sulfate 324 MG TABLET.DR PO (08:36)
[2024-07-07] MEDS: 0.9 % Sodium Chloride Flush 3 ML SYRINGE IVFLUSH ×2 (08:37→14:40)
[2024-07-07] MEDS: Gabapentin 400 MG CAPSULE 800 MG PO ×3 (08:42→22:17)
[2024-07-07] MEDS: ondansetron HCL 4 MG/2 ML VIAL IVPUSH (09:47)
--- NOTE | 2024-07-07 10:15 | PC.NURSE ---
as this RN noted some EKG changes on telemetry stat EKG ordered. Pt reports dull chest pain that remains in mid/upper left breast. Pt reports ongoing lower extremity cramping that has had minimal relief with medications. BP elevated 173/80 depsite medication administration. secure chat EKG results. pending further interventions.
--- NOTE | 2024-07-07 10:30 | PC.NURSE ---
MD godfrey at bedside. Pt diaphoretic and reports still chest pain 3/10 with significant unrelieved leg cramps. Patient denies any SOB, or dizziness. MD placed orders and cardiology called to bedside. Secondary IV placed and additional stat labs obtained.
--- NOTE | 2024-07-07 10:49 | ECG_ITS ---
Test Reason : CHEST PAIN Blood Pressure : / mmHG Vent. Rate : 068 BPM Atrial Rate : 068 BPM P-R Int : 140 ms QRS Dur : 084 ms QT Int : 458 ms P-R-T Axes : -01 -20 -87 degrees QTc Int : 487 ms Normal sinus rhythm Septal infarct (cited on or before 06-JUL-2024) ST & T wave abnormality, consider inferior ischemia ST & T wave abnormality, consider anterolateral ischemia Abnormal ECG When compared with ECG of 07-JUL-2024 09:58, Premature ventricular complexes are no longer Present Serial changes of Septal infarct Present Referred By: Orville Rosario Electronically Signed By:JACINTO PATEL
--- NOTE | 2024-07-07 11:07 | MHC.CM.PN ---
pt lives alone, she does not have home health services, she has a walker and a cane. She just moved to [place] from [place] a few months ago. She does not know the name of her PCP, she goes to [facility]. She said that she can arrange a ride home at [place]. DCP: home, self care.
[2024-07-07] MEDS: Morphine Sulfate 2 MG/ML CARTRIDGE IVPUSH (11:12)
[2024-07-07 11:21] LABS: Prothrombin Time 12.1 SEC (10.9-12.4)
--- NOTE | 2024-07-07 11:21 | PM.CNCAR ---
History of Present Illness History of Present Illness Date of Service: 07/07/24 Requesting physician: Orville Rosario Consult reason: chest pain Chief complaint: Hypertensive Emergency Narrative: I was consulted to see Estephania in her urgent consult because of recurrent chest pain and abnormal EKG. Patient is 63-year-old female with prior history of CAD, premature atherosclerosis with coronary artery bypass grafting, four-vessel in [place] in 2019, status post cardiac catheterization since with patent graft but no chest pain syndrome at that time. Came in yesterday to the hospital with chest pain with markedly elevated blood pressure with hypertensive emergency. Troponins were negative, EKG was nonischemic. Question compliance with medications. Patient has been seeing Nephrology for blood pressure management. Has history of bilateral renal artery stent, CTA yesterday shows patent stents. Patient was then just given her usual medications and increase dose of amlodipine. Yesterday the chest pain resolved after treating her blood pressure, this morning again at 09:00 started having chest pain again. She describes his chest pain is similar to angina. Blood pressure had declined significantly compared to yesterday. EKG shows new T-wave inversion anterolateral leads. Patient's chest pain has resolved but complaining of significant cramps in both her calf muscles. Her peripheral pulses are intact. There was no evidence of hypoperfusion to the toes. Patient also has prior history of heart failure with reduced ejection fraction with LVEF of 30 35% in the past, normalized neurohormonal modulation with improvement in heart failure syndrome. Clinically currently in distress due to cough pain not having any chest pain. Blood pressure is reduced from systolic 250 on admission to systolic 110. Review of Systems Constitutional: Constitutional: Reports no additional constitutional complaints Eyes: Eyes: Reports no additional eye complaints Cardiovascular: Cardiovascular: Reports chest pain at rest, Denies leg edema, Denies lightheadedness, Denies Loss of Consciousness, Denies palpitations and Denies dyspnea Respiratory: Respiratory: Reports no additional respiratory complaints and Denies dyspnea Gastrointestinal: Gastrointestinal: Reports no additional gastrointestinal complaints Musculoskeletal: Musculoskeletal: Reports muscle cramps Neurologic: Reports system reviewed and no additional complaints, except as documented Psychiatric: Psychiatric: Reports no additional psychiatric complaints Endocrine: Endocrine: Denies palpitations PMFSH Past Medical History Medical History Occlusion and stenosis of left vertebral artery CVA (cerebral vascular accident) Heart failure with recovered ejection fraction (HFrecEF) Abdominal aortic aneurysm Arthritis SLE (systemic lupus erythematosus related syndrome) CKD (chronic kidney disease) COPD with asthma Hyperlipidemia Hypertension Atherosclerotic cardiovascular disease Diabetes Family History Family History Father Heart attack Surgical History Surgical History Status post aorto-coronary artery bypass graft History of open heart surgery Social History Social History Alcohol intake: never Patient Tobacco Use Status: Never used Tobacco Smoked in Last 30 Days: No Substance Use Type: Marijuana Advance Directives: No Advance Directives Information Provided: No Do you have a plan to hurt others: No Plan Nutrition Risks: No Nutritional Risk service: No Meds Allergies Allergy/AdvReac Type Severity Reaction Status Date / Time cat dander [CAT DANDER] Allergy Mild ITCHY EYES Verified 07/06/24 15:59 Active Medications: Current Medications Acetaminophen (Acetaminophen 325 Mg Tablet) 975 mg PO Q6H PRN PRN Reason: Pain, Mild (Pain Scale 1-3), fever or headache Last Admin: 07/07/24 06:36 Dose: 975 mg Amlodipine Besylate (Amlodipine Besylate 10 Mg Tablet) 10 mg PO DAILY [facility]; Protocol Last Admin: 07/07/24 08:36 Dose: 10 mg Ascorbic Acid (Ascorbic Acid 250 Mg Tablet) 250 mg PO DAILY [facility] Last Admin: 07/07/24 08:35 Dose: 250 mg Aspirin (Aspirin Enteric Coated 81 Mg Tablet.) 81 mg PO DAILY [facility] Last Admin: 07/07/24 08:36 Dose: 81 mg Atorvastatin Calcium (Atorvastatin Calcium 40 Mg Tablet) 40 mg PO DAILY [facility] Last Admin: 07/07/24 08:35 Dose: 40 mg Carvedilol (Carvedilol 25 Mg Tablet) 25 mg PO BID [facility]; Protocol Last Admin: 07/07/24 08:35 Dose: 25 mg Clopidogrel Bisulfate (Clopidogrel Bisulfate 75 Mg Tablet) 75 mg PO DAILY [facility] Last Admin: 07/07/24 08:36 Dose: 75 mg Duloxetine HCl (Duloxetine Hcl 60 Mg Capsule.) 60 mg PO DAILY [facility] Last Admin: 07/07/24 08:36 Dose: 60 mg Empagliflozin (Empagliflozin 10 Mg Tablet) 10 mg PO DAILY [facility] Last Admin: 07/07/24 08:35 Dose: 10 mg Ferrous Sulfate (Ferrous Sulfate 324 Mg Tablet.) 324 mg PO DAILY [facility] Last Admin: 07/07/24 08:36 Dose: 324 mg Fluticasone/Vilanterol (Fluticasone/Vilanterol 200/25 Blst.W.Dev) 1 puff INHALE RDAILY [facility] Last Admin: 07/07/24 08:52 Dose: Not Given Gabapentin (Gabapentin 400 Mg Capsule) 800 mg PO TID [facility] Last Admin: 07/07/24 08:42 Dose: 800 mg Heparin Sodium (Porcine) (Heparin Sodium,Porcine 5,000 Unit/Ml Vial) 2,200 unit 40 unit/kg (2200 unit) IVPUSH PROTOCOL BOLUS PRN; Protocol PRN Reason: 40 unit/kg - Heparin Protocol Heparin Sodium (Porcine) (Heparin Sodium,Porcine 5,000 Unit/Ml Vial) 4,400 unit 80 unit/kg (4400 unit) IVPUSH PROTOCOL BOLUS PRN; Protocol PRN Reason: 80 unit/kg - Heparin Protocol Heparin Sodium/Sodium Chloride (Heparin Sodium,Porcine/1/2ns) 25,000 unit in 250 mls @ 0 mls/hr IVCONT .Q0M [facility]; Protocol Nitroglycerin (Nitroglycerin 0.4 Mg Tab.Subl) 0.4 mg SUBLINGUAL Q5MX3 PRN PRN Reason: Chest Pain Omeprazole (Omeprazole 20 Mg Capsule.) 20 mg PO DAILY@0630 [facility] Last Admin: 07/07/24 06:35 Dose: 20 mg Ondansetron HCl (Ondansetron Hcl 4 Mg/2 Ml Vial) 4 mg IVPUSH Q4H PRN PRN Reason: Nausea and Vomiting Last Admin: 07/07/24 09:47 Dose: 4 mg Sacubitril/Valsartan (Sacubitril/Valsartan 97/103 1 Tab Tablet) 1 tab PO BID [facility]; Protocol Last Admin: 07/07/24 11:16 Dose: Not Given Sodium Chloride (0.9 % Sodium Chloride Flush 3 Ml Syringe) 3 ml IVFLUSH QSHIFT [facility] Last Admin: 07/07/24 08:37 Dose: 3 ml Tiotropium [place] (Tiotropium [place] 2.5 Mcg 1 Puff/2.5 Mcg Mist.Inhal) 2 puff INHALE RDAILY [facility] Last Admin: 07/07/24 08:52 Dose: Not Given Trazodone HCl (Trazodone Hcl 50 Mg Tablet) 150 mg PO BEDTIME [facility] Home Medications ?Medication ?Instructions ?Recorded ?Confirmed ?Last Taken ?Type albuterol sulfate 90 mcg/actuation 2 puff inhalation Q6H PRN wheezing 06/27/24 07/06/24 07/06/24 08:00 History aerosol inhaler (Ventolin HFA) ascorbic acid (vitamin C) 250 mg 250 mg PO DAILY 06/27/24 07/06/24 07/06/24 08:00 History tablet aspirin 81 mg tablet,delayed 81 mg PO DAILY 06/27/24 07/06/24 07/06/24 08:00 History release atorvastatin 40 mg tablet 40 mg PO DAILY 06/27/24 07/06/24 07/06/24 08:00 History carvedilol 25 mg tablet 25 mg PO BID 06/27/24 07/06/24 07/06/24 08:00 History clopidogrel 75 mg tablet 75 mg PO DAILY 06/27/24 07/06/24 07/06/24 08:00 History duloxetine 60 mg capsule,delayed 60 mg PO DAILY 06/27/24 07/06/24 07/06/24 08:00 History release empagliflozin 10 mg tablet 10 mg PO DAILY 06/27/24 07/06/24 07/06/24 08:00 History (Jardiance) ferrous sulfate 325 mg (65 mg 325 mg PO DAILY 06/27/24 07/06/24 07/06/24 08:00 History iron) tablet (FeroSul) furosemide 20 mg tablet 20 mg PO DAILY 06/27/24 07/06/24 07/06/24 08:00 History gabapentin 800 mg tablet 800 mg PO TID 06/27/24 07/06/24 07/06/24 08:00 History nitroglycerin 0.4 mg sublingual 0.4 mg sublingual Q5M PRN Chest 06/27/24 07/06/24 07/06/24 08:00 History tablet Pain pantoprazole 40 mg tablet,delayed 40 mg PO DAILY@0630 06/27/24 07/06/24 07/06/24 08:00 History release sacubitril 97 mg-valsartan 103 mg 1 tab PO BID 06/27/24 07/06/24 1 Week Ago History tablet (Entresto) ~06/29/24 trazodone 150 mg tablet 150 mg PO BEDTIME 06/27/24 07/06/24 07/05/24 History umeclidinium 62.5 mcg/actuation 1 inh inhalation DAILY 06/27/24 07/06/24 07/06/24 08:00 History blister powder for inhalation (Incruse Ellipta) budesonide-formoterol HFA 160 2 puff inhalation BID 07/05/24 07/06/24 07/06/24 08:00 History mcg-4.5 mcg/actuation aerosol inhaler (Symbicort) Physical Exam Vital Signs: Vital Signs: Last Vital Signs Temp 97.7 F 07/06/24 19:38 Pulse 77 07/07/24 10:52 Resp 17 07/07/24 11:12 BP 110/65 07/07/24 10:52 Pulse Ox 99 07/07/24 10:52 O2 Del Method Room Air 07/07/24 10:52 BMI result Body Mass Index 22.5 Const: General: cooperative, alert, awake, in distress other (Due to calf pain) and anxious Nutritional Appearance: thin Orientation/consciousness: patient oriented x3 Limitations: no limitations HEENT: Head: Yes normocephalic and Yes atraumatic Neck: Neck: Yes trachea midline, Yes supple and Yes no JVD Resp: Effort & Inspection: normal respiratory effort Auscultation: clear to auscultation bilaterally Cardio: Jugular venous distension: no JVD Palpation: normal PMI Rate: regular rate Rhythm: regular rhythm Heart sounds: S1 normal heart sound present, S2 normal heart sound present, no click, no gallops and no murmurs Peripheral pulses: posterior tibial pulses present and dorsalis pedis present GI: Auscultation: normal bowel sounds Skin: General skin exam: no rashes or lesions noted Neuro: General: patient oriented x3 and no focal motor deficits Extrem: General: Yes no clubbing, cyanosis or edema Psych: Appearance: grossly normal Affect: Anxious affect present Objective Labs and Meds 07/07/24 04:28 07/07/24 04:28 Lab results: Laboratory Results - last 24 hr 09/07/06/24 07/06/24 18:04 20:39 23:10 WBC 4.5 L RBC 4.52 Hgb 11.0 L Hct 35.9 L MCV 79.4 L MCH 24.3 L MCHC 30.6 L RDW 15.4 Plt Count 195 MPV 10.6 Immature Gran % (Auto) 0.0 Neut % (Auto) 25.6 L Lymph % (Auto) 52.5 H [place] % (Auto) 13.2 H Eos % (Auto) 8.3 H Baso % (Auto) 0.4 Lymph # (Auto) 2.4 [place] # (Auto) 0.6 Eos # (Auto) 0.4 Baso # (Auto) 0.0 Abs Immat Gran (auto) 0.00 Absolute Neuts (auto) 1.2 L Absolute Nucleated RBC 0.000 Nucleated RBC % (auto) 0.0 PT 12.5 INR 1.0 Sodium 141 Potassium 3.2 L Chloride 107 Carbon Dioxide 26 Anion Gap 11 L BUN 14 Creatinine 0.96 Estim Creat Clear Calc 49.6 Estimated GFR 59 Random Glucose 90 Calcium 10.1 Magnesium Total Bilirubin 0.5 AST 19 ALT 9 Alkaline Phosphatase 85 Troponin I High Sens 4.9 D 5.4 B-Natriuretic Peptide 121 H Total Protein 7.6 Albumin 4.2 Urine Color Yellow Urine Appearance Clear Urine pH 6.0 Ur Specific [place] 1.020 Urine Protein Negative Urine Glucose (UA) Negative Urine Ketones Negative Urine Blood Negative Urine Nitrite Negative Ur Leukocyte Esterase Trace H Urine RBC 0-2 Urine WBC 0-5 Ur Squamous Epith Cells 3-5 Urine Bacteria None Seen Hyaline Casts 0-2 07/07/24 04:28 WBC 5.3 RBC 4.91 Hgb 12.2 Hct 38.3 MCV 78.0 L MCH 24.8 L MCHC 31.9 RDW 15.2 Plt Count 221 MPV 10.8 Immature Gran % (Auto) 0.2 Neut % (Auto) 62.6 Lymph % (Auto) 26.6 [place] % (Auto) 8.7 Eos % (Auto) 1.5 Baso % (Auto) 0.4 Lymph # (Auto) 1.4 [place] # (Auto) 0.5 Eos # (Auto) 0.1 Baso # (Auto) 0.0 Abs Immat Gran (auto) 0.01 Absolute Neuts (auto) 3.3 Absolute Nucleated RBC 0.000 Nucleated RBC % (auto) 0.0 PT INR Sodium 139 Potassium 3.9 D Chloride 104 Carbon Dioxide 25 Anion Gap 14 BUN 15 Creatinine 1.04 Estim Creat Clear Calc 45.7 Estimated GFR 54 Random Glucose 114 Calcium 10.4 H Magnesium 2.0 Total Bilirubin AST ALT Alkaline Phosphatase Troponin I High Sens 3.2 B-Natriuretic Peptide Total Protein Albumin Urine Color Urine Appearance Urine pH Ur Specific [place] Urine Protein Urine Glucose (UA) Urine Ketones Urine Blood Urine Nitrite Ur Leukocyte Esterase Urine RBC Urine WBC Ur Squamous Epith Cells Urine Bacteria Hyaline Casts EKG from yesterday shows normal sinus rhythm with no significant acute ischemic changes. EKG today shows normal sinus rhythm with anterolateral T-wave inversions with PVCs. Imaging Radiologist's impression: Impressions Chest X-Ray 07/06/24 15:59 IMPRESSION: No active chest disease. Electronically signed by: Steven Whitman MD 07/06/2024 04:46 PM EDT RP Abdomen/Pelvis CTA 07/06/24 20:06 IMPRESSION: 1. No evidence of aortic dissection. 2. Infrarenal abdominal aortic aneurysm at 3 cm. 3. Bilateral renal artery stents are patent with associated atrophy of the lower pole of the left kidney. 4. Incidental note made of mild cardiomegaly, mild emphysema, benign hepatic cyst and degenerative changes in the spine. Fleischner guidelines were followed. Electronically signed by: Dominguez Sierra MD 07/06/2024 11:10 PM EDT RP Chest CTA 07/06/24 20:06 IMPRESSION: 1. No evidence of aortic dissection. 2. Infrarenal abdominal aortic aneurysm at 3 cm. 3. Bilateral renal artery stents are patent with associated atrophy of the lower pole of the left kidney. 4. Incidental note made of mild cardiomegaly, mild emphysema, benign hepatic cyst and degenerative changes in the spine. Fleischner guidelines were followed. Electronically signed by: Dominguez Sierra MD 07/06/2024 11:10 PM EDT RP Assessment and Plan (1) Unstable angina: Status: Acute Unstable angina with rapid drop in his blood pressure from hypertensive emergency range yesterday to systolic blood pressure 110 which could potentially cause myocardial ischemia. She had chest pain syndrome with diaphoresis this morning. This has now resolved. She has new EKG changes concerning for ischemia in the OM/diagonal territory, could represent lesion in the SVG graft to that territory. I would start her on IV heparin, continue aspirin high-intensity statin therapy. Will give her a bolus of 500 cc normal saline to improve blood pressure. I suspect that she probably is not compliant with medication as she has responded significantly to her usual medication does to near hypotensive range. Would start on IV heparin for now. Hold off on nitro paste as a chest pain resolved. Will give her morphine for her significant cramps to reduce myocardial demand. Will transfer to [facility] for cardiac catheterization to evaluate for [place] as well as graft anatomy. Discussed with patient about compliance with medication, she says she is very compliant with the medications. Further treatment based on the findings of cardiac catheterization. Arrangements are being made to transfer to [facility]. Risks, benefits, alternatives to the procedure were discussed with her. She understands agrees. Greater than 40 minutes was spent in managing his complex care and arranging transfer Procedures Date of Service Date of Service: 07/07/24
[2024-07-07 11:23] LABS: PTT Heparin Drip 28.8 SEC (53-77.9)
--- NOTE | 2024-07-07 11:31 | PC.NURSE ---
Cardiology at bedside to assess pt. Orders to not administer any nitro at this time but to administer 2mg morphine IV for pain relief and ischemia and 500ml NS bolus. Cardiology plan for transfer to [facility] for further IR interventions and care. awaiting heparin gtt orders. Pt reports CP 11/28 and is [id number] speaking clear full sentences.
[2024-07-07] MEDS: Heparin Sodium,Porcine/1/2NS 25,000 UNIT/250 ML IV.SOLN 6.92 UNIT IVCONT (11:43)
[2024-07-07 11:44] LABS: Troponin-I High Sensitivity 4.4 ng/L (<3.5-17.0)
[2024-07-07] MEDS: Heparin Sodium,Porcine 5,000 UNIT/ML VIAL 3500 UNIT IVPUSH (11:50)
--- NOTE | 2024-07-07 11:58 | P.DS_ITS ---
DS: Providers Provider Date of Service: 07/07/24 Date of admission: 07/06/24 23:28 Date of discharge: 07/07/24 Primary care physician: Unknown Physician Consults: 07/07/24 08:02 Consult to Nephrology Routine Consulting Provider: [facility] Reason for consultation: hypertensive emergency Has provider been notified: No 07/07/24 10:57 Consult to Cardiology Routine Consulting Provider: Cristiano Farfan Reason for consultation: abnormal ekg Has provider been notified: Yes DS: Diagnosis Discharge Diagnosis (1) Unstable angina: Status: Acute DS: Summary Hospital Course Hospital Course: History of presenting illness: Date of Service: 07/06/24 Attending physician on admission: Ward Rosas Chief Complaint: High blood pressure Estephania Bill is a 63 years old woman with past medical history significant for AAA, hypertension, hyperlipidemia, COPD -no home O2, CVA, bilateral renal stents placement and HFrEF presents to the emergency department complaining of elevated blood pressure. She stated that yesterday she was seen by nephrology and was found to have a systolic blood pressure > 200 was prescribed to start amlodipine 5 mg p.o. daily. She stated that she persistent with markedly elevated blood pressure associated with mid-chest tightness radiating to the left and some shortness on breath. She also reports generalized headache and fatigue. Denied visual disturbances and nausea. Denied vomiting, abdominal pain, vomiting, palpitations, fever or chills. Denied tobacco smoking, alcohol abuse or illicit drug use. In the ED, she was initially found with a blood pressure 207/112. Other vital signs are normal. Blood workup showed mild neutropenia and anemia which are at baseline. INR is normal. Potassium is 3.2. Renal function and LFTs are normal. There are no electrolyte imbalances. Chest, abdomen and pelvis CTA showed no evidence of aortic dissection. There is an infrarenal abdominal aortic aneurysm at 3 cm, bilateral renal stents with associated atrophy of lower pole of the left kidney, mild cardiomegaly mild emphysema and benign hepatic cyst. ED tx: Amlodipine 10 mg p.o., Lasix 20 mg p.o., hydralazine 10 mg IV, oxycodone 5 mg p.o. Hospital course 63-year-old female patient with past medical history significant for CABG in 2019 [place] to LAD, saphenous vein graft to PDA and saphenous vein graft to obtuse marginal, status post repeat cardiac catheterization in 2019 in 2020 both showed patent grafts, echo in 2021 showed EF 30-35%, improved to 60% in 2022, history of bilateral renal stent placement presented to [facility] with elevated systolic BP 207/112 associated with chest tightness with radiation to left arm and shortness of breath workup showed normal troponin, EKG with no acute ischemic changes patient was treated with amlodipine, hydralazine 10 mg IV and Lasix , chest pain resolved blood pressure improved, however this morning patient developed chest pain again, without radiation to left arm associated with diaphoresis at that time blood pressure was 170-180 range, repeat blood pressure without treatment dropped to 110, EKG at this time showed T-wave inversion in lead v3 -v6 , troponin remained negative, started on IV heparin, case discussed with Cardiology they recommend to transfer patient to [facility] for angiography, with concern for ischemia in obtuse kulwinder nal/diagonal territory could representing graft occlusion, due to soft blood pressure will DC Lasix, place her back on Norvasc 5 mg and continue aspirin, statin, Plavix and Coreg and IV heparin, chest pain resolved, no arrhythmias noted on tele monitor, no evidence of CHF, renal function stable, CTA chest, abdomen and pelvis showed no evidence of aortic dissection showed infrarenal abdominal aortic aneurysm at 3 cm, bilateral renal artery stents are patent with associated atrophy of the lower pole of the left kidney, incidental note made of mild cardiomegaly, mild emphysema, benign hepatic cysts and degenerative changes in the spine. In regard to hypertensive emergency patient was evaluated by Nephrology they recommended to increase amlodipine to 10 mg,( home dose of 5 mg) and add oral hy dralazine 25 mg by mouth t.i.d. and recommended to avoid rapidly active intravenous agents, since patient noted to have low blood pressure this morning will hold off on adding antihypertensive recommend to follow blood pressure closely on current medications as per patient she is compliant with all home medications. Acute hypokalemia repleted and normalized History of CVA, continue aspirin Plavix and statin as above In regard to type 2 diabetes mellitus blood sugars stable 114 will hold Jardiance. Time Attestation Discharge Coordination Time (in mins): 40 Quality: Safe Use of Opioids Does Pt have an Active Cancer Diagnosis on the Problem List?: No Quality: Stroke Does the patient have a stroke diagnosis?: No Physical Exam Vital Signs: Vital Signs: Last Vital Signs Temp 97.7 F 07/06/24 19:38 Pulse 71 07/07/24 11:53 Resp 14 07/07/24 11:53 BP 116/70 07/07/24 11:53 Pulse Ox 98 07/07/24 11:53 O2 Del Method Nasal Cannula 07/07/24 11:53 O2 Flow Rate 1 07/07/24 11:53 BMI result Body Mass Index 22.5 Const: Other: General awake alert x3, no distress Neck supple no JVD. CVS regular rate rhythm, Respiratory lungs clear to auscultation, no respiratory distress, no wheeze, no rhonchi. Gastrointestinal abdomen soft, non tender, bowel sounds audible Extremities no edema. Neuro non focal Skin no rash Psych appropriate affect/mild anxiety DS: Data Data Completed and Pending Labs on day of discharge: Laboratory Results - last 24 hr 07/06/24 07/06/24 07/06/24 18:04 20:39 23:10 WBC 4.5 L RBC 4.52 Hgb 11.0 L Hct 35.9 L MCV 79.4 L MCH 24.3 L MCHC 30.6 L RDW 15.4 Plt Count 195 MPV 10.6 Immature Gran % (Auto) 0.0 Neut % (Auto) 25.6 L Lymph % (Auto) 52.5 H [place] % (Auto) 13.2 H Eos % (Auto) 8.3 H Baso % (Auto) 0.4 Lymph # (Auto) 2.4 [place] # (Auto) 0.6 Eos # (Auto) 0.4 Baso # (Auto) 0.0 Abs Immat Gran (auto) 0.00 Absolute Neuts (auto) 1.2 L Absolute Nucleated RBC 0.000 Nucleated RBC % (auto) 0.0 PT 12.5 INR 1.0 aPTT Heparin Protocol Sodium 141 Potassium 3.2 L Chloride 107 Carbon Dioxide 26 Anion Gap 11 L BUN 14 Creatinine 0.96 Estim Creat Clear Calc 49.6 Estimated GFR 59 Random Glucose 90 Calcium 10.1 Magnesium Total Bilirubin 0.5 AST 19 ALT 9 Alkaline Phosphatase 85 Troponin I High Sens 4.9 D 5.4 B-Natriuretic Peptide 121 H Total Protein 7.6 Albumin 4.2 Urine Color Yellow Urine Appearance Clear Urine pH 6.0 Ur Specific [place] 1.020 Urine Protein Negative Urine Glucose (UA) Negative Urine Ketones Negative Urine Blood Negative Urine Nitrite Negative Ur Leukocyte Esterase Trace H Urine RBC 0-2 Urine WBC 0-5 Ur Squamous Epith Cells 3-5 Urine Bacteria None Seen Hyaline Casts 0-2 07/07/24 07/07/24 04:28 11:11 WBC 5.3 RBC 4.91 Hgb 12.2 Hct 38.3 MCV 78.0 L MCH 24.8 L MCHC 31.9 RDW 15.2 Plt Count 221 MPV 10.8 Immature Gran % (Auto) 0.2 Neut % (Auto) 62.6 Lymph % (Auto) 26.6 [place] % (Auto) 8.7 Eos % (Auto) 1.5 Baso % (Auto) 0.4 Lymph # (Auto) 1.4 [place] # (Auto) 0.5 Eos # (Auto) 0.1 Baso # (Auto) 0.0 Abs Immat Gran (auto) 0.01 Absolute Neuts (auto) 3.3 Absolute Nucleated RBC 0.000 Nucleated RBC % (auto) 0.0 PT 12.1 INR 1.0 aPTT Heparin Protocol 28.8 L Sodium 139 Potassium 3.9 D Chloride 104 Carbon Dioxide 25 Anion Gap 14 BUN 15 Creatinine 1.04 Estim Creat Clear Calc 45.7 Estimated GFR 54 Random Glucose 114 Calcium 10.4 H Magnesium 2.0 Total Bilirubin AST ALT Alkaline Phosphatase Troponin I High Sens 3.2 4.4 B-Natriuretic Peptide Total Protein Albumin Urine Color Urine Appearance Urine pH Ur Specific [place] Urine Protein Urine Glucose (UA) Urine Ketones Urine Blood Urine Nitrite Ur Leukocyte Esterase Urine RBC Urine WBC Ur Squamous Epith Cells Urine Bacteria Hyaline Casts Discharge Plan Discharge Anticipated Discharge Date/Time: 07/07/24 11:46 Patient Disposition: Xfer Acute Care Hospital Discharge Diagnosis: Unstable angina Referrals: Physician,Unknown J [Primary Care Provider] - 1 Week Discharge Medications: New heparin(porcine) in 0.45% NaCl 25,000 unit/250 mL Parenteral Solution 25,000 unit continuous IV infusion .Q0M Qty: 6000 0RF Continued albuterol sulfate [Ventolin HFA] 90 mcg/actuation HFA aerosol inhaler 2 puff inhalation Q6H PRN (Reason: wheezing) ascorbic acid (vitamin C) 250 mg tablet 250 mg PO DAILY Rx Instructions: Take with Ferrous Sulfate Tablets. aspirin 81 mg tablet,delayed release (DR/EC) 81 mg PO DAILY atorvastatin 40 mg tablet 40 mg PO DAILY carvedilol 25 mg tablet 25 mg PO BID clopidogrel 75 mg tablet 75 mg PO DAILY duloxetine 60 mg capsule,delayed release(DR/EC) 60 mg PO DAILY ferrous sulfate [FeroSul] 325 mg (65 mg iron) tablet 325 mg PO DAILY gabapentin 800 mg tablet 800 mg PO TID nitroglycerin 0.4 mg tablet, sublingual 0.4 mg sublingual Q5M PRN (Reason: Chest Pain) pantoprazole 40 mg tablet,delayed release (DR/EC) 40 mg PO DAILY@0630 Entresto 97-103 mg tablet 1 tab PO BID trazodone 150 mg tablet 150 mg PO BEDTIME Incruse Ellipta 62.5 mcg/actuation blister with device 1 inh inhalation DAILY budesonide-formoterol [Symbicort] 160-4.5 mcg/actuation HFA aerosol inhaler 2 puff inhalation BID amlodipine 5 mg tablet 5 mg PO DAILY Qty: 90 0RF Discontinued Jardiance 10 mg tablet 10 mg PO DAILY furosemide 20 mg tablet 20 mg PO DAILY Discharge Orders: Discharge Order (Routine); Ordered 07/07/24 Ordered By: Orville Rosario Diet: Diabetic diet Activity on Discharge: bed rest Stand Alone Forms: Patient Portal Discharge page Print Language: [place] Care Plan Goals: Unstable angina, intermittent chest pain, EKG changes being transferred to [facility] for cardiac catheterization continue IV heparin , statins and beta-blockers Health Concerns: Diabetes mellitus Uncontrolled pressure Hyperlipidemia COPD not on home O2 Bilateral renal stents Plan of Treatment: Outpatient follow-up with primary care physician and Cardiology upon discharge. Assessment: as above
--- NOTE | 2024-07-07 12:03 | PM.CNNEP ---
History of Present Illness Reason for Consult Consult date: 07/07/24 Reason for consult: Hypertension Chief Complaint Chief complaint: Hypertensive Emergency History of Present Illness Narrative: 63 years old woman with past medical history significant for AAA, hypertension, hyperlipidemia, COPD -no home O2, CVA, bilateral renal stents placement and HFrEF presents to the emergency department complaining of elevated blood pressure. She stated that yesterday she was seen by nephrology and was found to have a systolic blood pressure > 200 was prescribed to start amlodipine 5 mg p.o. daily. She stated that she persistent with markedly elevated blood pressure associated with mid-chest tightness radiating to the left and some shortness on breath. She also reports generalized headache and fatigue. Denied visual disturbances and nausea. Denied vomiting, abdominal pain, vomiting, palpitations, fever or chills. Denied tobacco smoking, alcohol abuse or illicit drug use. I saw in the office earlier this week and start her on amlodipine 5 mg once a day. During this hospitalization she has received IV labetalol and IV hydralazine. Blood pressure has significantly decreased Review of Systems Constitutional: Reports as per HPI, Denies anorexia, Denies fatigue, Denies fever(s) and Denies headache(s) Eyes: Denies blurry vision Denies headache(s) Cardiovascular: Denies chest pain, Denies pedal edema and Denies dyspnea Respiratory: Denies cough, Denies hemoptysis and Denies dyspnea Gastrointestinal: Denies diarrhea, Denies nausea and Denies vomiting Genitourinary: Denies hematuria, Denies urinary frequency and Denies urinary hesitancy Denies confusion, Denies headache(s) and Denies focal weakness Psychiatric: Denies confusion Endocrine: Denies cold intolerance, Denies fatigue and Denies polyuria [facility] Past Medical History Medical History Occlusion and stenosis of left vertebral artery CVA (cerebral vascular accident) Heart failure with recovered ejection fraction (HFrecEF) Abdominal aortic aneurysm Arthritis SLE (systemic lupus erythematosus related syndrome) CKD (chronic kidney disease) COPD with asthma Hyperlipidemia Hypertension Atherosclerotic cardiovascular disease Diabetes Family History Family History Father Heart attack Surgical History Surgical History Status post aorto-coronary artery bypass graft History of open heart surgery Social History Social History Alcohol intake: never Patient Tobacco Use Status: Never used Tobacco Smoked in Last 30 Days: No Substance Use Type: Marijuana Advance Directives: No Advance Directives Information Provided: No Do you have a plan to hurt others: No Plan Nutrition Risks: No Nutritional Risk service: No Meds Allergies Allergy/AdvReac Type Severity Reaction Status Date / Time cat dander [CAT DANDER] Allergy Mild ITCHY EYES Verified 07/06/24 15:59 Active Medications: Current Medications Acetaminophen (Acetaminophen 325 Mg Tablet) 975 mg PO Q6H PRN PRN Reason: Pain, Mild (Pain Scale 1-3), fever or headache Last Admin: 07/07/24 06:36 Dose: 975 mg Amlodipine Besylate (Amlodipine Besylate 10 Mg Tablet) 10 mg PO DAILY [facility]; Protocol Last Admin: 07/07/24 08:36 Dose: 10 mg Ascorbic Acid (Ascorbic Acid 250 Mg Tablet) 250 mg PO DAILY [facility] Last Admin: 07/07/24 08:35 Dose: 250 mg Aspirin (Aspirin Enteric Coated 81 Mg Tablet.) 81 mg PO DAILY [facility] Last Admin: 07/07/24 08:36 Dose: 81 mg Atorvastatin Calcium (Atorvastatin Calcium 40 Mg Tablet) 40 mg PO DAILY [facility] Last Admin: 07/07/24 08:35 Dose: 40 mg Carvedilol (Carvedilol 25 Mg Tablet) 25 mg PO BID [facility]; Protocol Last Admin: 07/07/24 08:35 Dose: 25 mg Clopidogrel Bisulfate (Clopidogrel Bisulfate 75 Mg Tablet) 75 mg PO DAILY [facility] Last Admin: 07/07/24 08:36 Dose: 75 mg Duloxetine HCl (Duloxetine Hcl 60 Mg Capsule.) 60 mg PO DAILY [facility] Last Admin: 07/07/24 08:36 Dose: 60 mg Empagliflozin (Empagliflozin 10 Mg Tablet) 10 mg PO DAILY [facility] Last Admin: 07/07/24 08:35 Dose: 10 mg Ferrous Sulfate (Ferrous Sulfate 324 Mg Tablet.) 324 mg PO DAILY [facility] Last Admin: 07/07/24 08:36 Dose: 324 mg Fluticasone/Vilanterol (Fluticasone/Vilanterol 200/25 Blst.W.Dev) 1 puff INHALE RDAILY [facility] Last Admin: 07/07/24 08:52 Dose: Not Given Gabapentin (Gabapentin 400 Mg Capsule) 800 mg PO TID [facility] Last Admin: 07/07/24 08:42 Dose: 800 mg Heparin Sodium (Porcine) (Heparin Sodium,Porcine 5,000 Unit/Ml Vial) 2,300 unit 40 unit/kg (2300 unit) IVPUSH PROTOCOL BOLUS PRN; Protocol PRN Reason: 40 unit/kg - Heparin Protocol Heparin Sodium (Porcine) (Heparin Sodium,Porcine 5,000 Unit/Ml Vial) 4,600 unit 80 unit/kg (4600 unit) IVPUSH PROTOCOL BOLUS PRN; Protocol PRN Reason: 80 unit/kg - Heparin Protocol Heparin Sodium/Sodium Chloride (Heparin Sodium,Porcine/1/2ns) 25,000 unit in 250 mls @ 0 mls/hr IVCONT .Q0M [facility]; Protocol Last Admin: 07/07/24 11:43 Dose: 12 units/kg/hr, 6.92 mls/hr Nitroglycerin (Nitroglycerin 0.4 Mg Tab.Subl) 0.4 mg SUBLINGUAL Q5MX3 PRN PRN Reason: Chest Pain Omeprazole (Omeprazole 20 Mg Capsule.Dr) 20 mg PO DAILY@0630 [facility] Last Admin: 07/07/24 06:35 Dose: 20 mg Ondansetron HCl (Ondansetron Hcl 4 Mg/2 Ml Vial) 4 mg IVPUSH Q4H PRN PRN Reason: Nausea and Vomiting Last Admin: 07/07/24 09:47 Dose: 4 mg Sacubitril/Valsartan (Sacubitril/Valsartan 97/103 1 Tab Tablet) 1 tab PO BID [facility]; Protocol Last Admin: 07/07/24 11:16 Dose: Not Given Sodium Chloride (0.9 % Sodium Chloride Flush 3 Ml Syringe) [facility] Last Admin: 07/07/24 08:37 Dose: 3 ml Tiotropium [place] (Tiotropium [place] 2.5 Mcg 1 Puff/2.5 Mcg Mist.Inhal) 2 puff INHALE [facility] Last Admin: 07/07/24 08:52 Dose: Not Given Trazodone HCl (Trazodone Hcl 50 Mg Tablet) 150 mg PO BEDTIME [facility] Home Medications ?Medication ?Instructions ?Recorded ?Confirmed ?Last Taken ?Type albuterol sulfate 90 mcg/actuation 2 puff inhalation Q6H PRN wheezing 06/27/24 07/06/24 07/06/24 08:00 History aerosol inhaler (Ventolin HFA) ascorbic acid (vitamin C) 250 mg 250 mg PO DAILY 06/27/24 07/06/24 07/06/24 08:00 History tablet aspirin 81 mg tablet,delayed 81 mg PO DAILY 06/27/24 07/06/24 07/06/24 08:00 History release atorvastatin 40 mg tablet 40 mg PO DAILY 06/27/24 07/06/24 07/06/24 08:00 History carvedilol 25 mg tablet 25 mg PO BID 06/27/24 07/06/24 07/06/24 08:00 History clopidogrel 75 mg tablet 75 mg PO DAILY 06/27/24 07/06/24 07/06/24 08:00 History duloxetine 60 mg capsule,delayed 60 mg PO DAILY 06/27/24 07/06/24 07/06/24 08:00 History release ferrous sulfate 325 mg (65 mg 325 mg PO DAILY 06/27/24 07/06/24 07/06/24 08:00 History iron) tablet (FeroSul) gabapentin 800 mg tablet 800 mg PO TID 06/27/24 07/06/24 07/06/24 08:00 History nitroglycerin 0.4 mg sublingual 0.4 mg sublingual Q5M PRN Chest 06/27/24 07/06/24 07/06/24 08:00 History tablet Pain pantoprazole 40 mg tablet,delayed 40 mg PO DAILY@0630 06/27/24 07/06/24 07/06/24 08:00 History release sacubitril 97 mg-valsartan 103 mg 1 tab PO BID 06/27/24 07/06/24 1 Week Ago History tablet (Entresto) ~06/29/24 trazodone 150 mg tablet 150 mg PO BEDTIME 06/27/24 07/06/24 07/05/24 History umeclidinium 62.5 mcg/actuation 1 inh inhalation DAILY 06/27/24 07/06/24 07/06/24 08:00 History blister powder for inhalation (Incruse Ellipta) budesonide-formoterol HFA 160 2 puff inhalation BID 07/05/24 07/06/24 07/06/24 08:00 History mcg-4.5 mcg/actuation aerosol inhaler (Symbicort) Physical Exam Vital Signs: Last Vital Signs Temp 97.7 F 07/06/24 19:38 Pulse 71 07/07/24 11:53 Resp 14 07/07/24 11:53 BP 116/70 07/07/24 11:53 Pulse Ox 98 07/07/24 11:53 O2 Del Method Nasal Cannula 07/07/24 11:53 O2 Flow Rate 1 07/07/24 11:53 BMI result Body Mass Index 22.5 Const General: No confusion Orientation/consciousness: No confusion Neck Neck: Yes supple Resp Auscultation: clear to auscultation bilaterally Cardio Palpation: no palpable S3 Heart sounds: no rubs GI Palpation (GI): Soft to palpation Auscultation: normal bowel sounds Neuro General: No confusion Motor exam (neuro): no asterixis Results Lab Results 07/07/24 04:28 07/07/24 04:28 Lab results: Chemistry 07/06/24 07/07/24 18:04 04:28 Sodium 141 139 Potassium 3.2 L 3.9 D Carbon Dioxide 26 25 BUN 14 15 Creatinine 0.96 1.04 Calcium 10.1 10.4 H Hematology 07/06/24 07/07/24 18:04 04:28 WBC 4.5 L 5.3 Hgb 11.0 L 12.2 Plt Count 195 221 Urinalysis 07/06/24 23:10 Urine Color Yellow Urine Appearance Clear Urine pH 6.0 Ur Specific [place] 1.020 Urine Protein Negative Urine Glucose (UA) Negative Urine Ketones Negative Urine Blood Negative Urine Nitrite Negative Ur Leukocyte Esterase Trace H Urine RBC 0-2 Urine WBC 0-5 Ur Squamous Epith Cells 3-5 Hyaline Casts 0-2 Assessment and Plan (1) Hypertensive emergency: Status: Acute Plan 63-year-old man with a significant peripheral artery disease Status post renal artery stenosis with bilateral stenting an atrophic left kidney Admitted with accelerated hypertension. Recent CTA did not reveal any restenosis. Stents were patent. Goal is to optimize medical management. Increase amlodipine to 10 mg a day. Would avoid rapidly active intravenous agents. Add oral hydralazine 25 mg p.o. t.i.d. and titrate the dose. Watch renal function She will follow along with the team Procedures Date of Service Date of Service: 07/07/24
--- NOTE | 2024-07-07 12:30 | PC.NURSE ---
patient sleeping and resting comfortably. Even unlabored respirations. Vitals stable. pt is in nad at this time will continue to monitor closely.
--- NOTE | 2024-07-07 13:30 | PC.NURSE ---
Secure chat MD about plan for transfer to [facility]. awaiting response.
--- NOTE | 2024-07-07 15:30 | PC.NURSE ---
MD states [facility] should be reaching out for transfer details. MD states patient was accepted to hospitalist team.
--- NOTE | 2024-07-07 16:00 | PC.NURSE ---
Spoke with pt daughter per ok'ed by patient and was given phone update on pt status.
--- NOTE | 2024-07-07 16:05 | PC.NURSE ---
head gauge unit operator called transfer line at [facility] to check in on patient accepted status. No further information given from [facility] they have no info on patient yet.
[2024-07-07 18:13] LABS: PTT Heparin Drip 82.4 SEC (53-77.9)
--- NOTE | 2024-07-07 18:50 | PC.NURSE ---
report received from Arin AVILA, assume care of pt at this time
[2024-07-07] MEDS: traZODone HCL 50 MG TABLET 150 MG PO (22:17)
--- NOTE | 2024-07-08 00:20 | PC.NURSE ---
resting quietly on stretcher, resp with ease, no s/s of acute distress, awaitng trasfer to [facility]
[2024-07-08 01:49] LABS: PTT Heparin Drip 62.5 SEC (53-77.9)
[2024-07-08 04:43] LABS: Hematocrit 37.5 % (37.0-47.0); Hemoglobin 11.6 g/dl (12.0-16.0); Mean Corpuscular HGB Conc 30.9 g/dl (31.0-35.0); Mean Corpuscular Hemoglobin 24.5 pg (27.0-33.0); Mean Corpuscular Volume 79.1 fL (80.0-98.0); Mean Platelet Volume 10.7 fL (9.4-12.3); Platelet Count 200 X10*3/uL (160-400); Red Blood Count 4.74 X10*6/uL (4.20-5.50); Red Cell Distribution Width 15.4 % (11.0-16.0); White Blood Count 4.6 X10*3/uL (4.8-10.8)
--- NOTE | 2024-07-08 04:43 | PC.NURSE ---
pt resting quietly on stretcher, with eyes close, resp with ease, no s/s of acute distress
[2024-07-08 06:02] VITALS: BP 126/63; PULSE 76; RESP 17; TEMP 36.6; O2SAT 95
[2024-07-08] MEDS: Omeprazole 20 MG CAPSULE.DR PO (06:38)
--- NOTE | 2024-07-08 06:58 | PC.NURSE ---
report given to Nydia AVILA
[2024-07-08] MEDS: Tiotropium Bromide 2.5 mcg 1 PUFF/2.5 MCG MIST.INHAL 2 PUFF INHALE (07:13)
[2024-07-08] MEDS: Fluticasone/Vilanterol 200/25 BLST.W.DEV 1 PUFF INHALE (07:13)
[2024-07-08 07:19] VITALS: PULSE 85; RESP 16; O2SAT 97
[2024-07-08 07:39] VITALS: BP 130/57; PULSE 60; RESP 14; TEMP 36.9; O2SAT 94
[2024-07-08 07:59] LABS: PTT Heparin Drip 84.7 SEC (53-77.9)
[2024-07-08 08:55] VITALS: BP 169/86; PULSE 74; RESP 20; TEMP 36.3; O2SAT 96
[2024-07-08] MEDS: Acetaminophen 325 MG TABLET 975 MG PO (09:02)
[2024-07-08] MEDS: Clopidogrel Bisulfate 75 MG TABLET PO (09:03)
[2024-07-08] MEDS: Atorvastatin Calcium 40 MG TABLET PO (09:03)
[2024-07-08] MEDS: Aspirin Enteric Coated 81 MG TABLET.DR PO (09:03)
[2024-07-08] MEDS: amLODIPine Besylate 5 MG TABLET PO (09:03)
[2024-07-08] MEDS: DULoxetine HCl 60 MG CAPSULE.DR PO (09:03)
[2024-07-08] MEDS: Gabapentin 400 MG CAPSULE 800 MG PO (09:03)
[2024-07-08] MEDS: Ferrous Sulfate 324 MG TABLET.DR PO (09:04)
[2024-07-08] MEDS: Ascorbic Acid 250 MG TABLET PO (09:04)
[2024-07-08] MEDS: carvediloL 25 MG TABLET PO (09:04)
[2024-07-08 09:18] VITALS: BMI 22.3
[2024-07-08 11:04] VITALS: BP 137/78; PULSE 67; RESP 20; TEMP 36.2; O2SAT 98
--- NOTE | 2024-07-08 11:15 | HO.PM.IMPN ---
Subjective Subjective Date of Service: 07/07/24 Interval History: Admitted for hypertensive emergency, BP improved with resumption of home medication and with increasing dose of amlodipine to 10 mg. Patient developed chest pain again late morning became diaphoretic at that time blood pressure was 160-170 later dropped to 110 without treatment, EKG showed T-wave inversions, patient also complained of leg cramps treated with IV morphine, chest pain and leg cramps resolved Review of Systems All other system reviewed and are negative Physical Exam Vital Signs: Vital Signs: Last Vital Signs Temp 97.1 F 07/08/24 11:04 Pulse 67 07/08/24 11:04 Resp 20 07/08/24 11:04 BP 137/78 07/08/24 11:04 Pulse Ox 98 07/08/24 11:04 O2 Del Method Nasal Cannula 07/08/24 11:04 O2 Flow Rate 2 07/08/24 11:04 BMI result Body Mass Index 22.3 Const: Other: General awake alert x3, no distress Neck supple no JVD. CVS regular rate rhythm, Respiratory lungs clear to auscultation, no respiratory distress, no wheeze, no rhonchi. Gastrointestinal abdomen soft, non tender, bowel sounds audible Extremities no edema. Neuro non focal Skin no rash Psych appropriate affect/mild anxiety Objective Data Active Medications Acetaminophen (Acetaminophen 325 Mg Tablet) 975 mg PO Q6H PRN PRN Reason: Pain, Mild (Pain Scale 1-3), fever or headache Last Admin: 07/08/24 09:02 Dose: 975 mg Documented By: GERALD Acetaminophen/Butalbital/Caffeine (Butalb/Acetamin/Caff 50/325/40 Tablet) 1 tab PO Q4H PRN PRN Reason: Headache Amlodipine Besylate (Amlodipine Besylate 5 Mg Tablet) 5 mg PO DAILY [facility]; Protocol Last Admin: 07/08/24 09:03 Dose: 5 mg Documented By: GERALD Ascorbic Acid (Ascorbic Acid 250 Mg Tablet) 250 mg PO DAILY [facility] Last Admin: 07/08/24 09:04 Dose: 250 mg Documented By: GERALD Aspirin (Aspirin Enteric Coated 81 Mg Tablet.) 81 mg PO DAILY [facility] Last Admin: 07/08/24 09:03 Dose: 81 mg Documented By: GERALD Atorvastatin Calcium (Atorvastatin Calcium 40 Mg Tablet) 40 mg PO DAILY [facility] Last Admin: 07/08/24 09:03 Dose: 40 mg Documented By: GERALD Carvedilol (Carvedilol 25 Mg Tablet) 25 mg PO BID [facility]; Protocol Last Admin: 07/08/24 09:04 Dose: 25 mg Documented By: GERALD Clopidogrel Bisulfate (Clopidogrel Bisulfate 75 Mg Tablet) 75 mg PO DAILY [facility] Last Admin: 07/08/24 09:03 Dose: 75 mg Documented By: GERALD Duloxetine HCl (Duloxetine Hcl 60 Mg Capsule.) 60 mg PO DAILY [facility] Last Admin: 07/08/24 09:03 Dose: 60 mg Documented By: GERALD Ferrous Sulfate (Ferrous Sulfate 324 Mg Tablet.) 324 mg PO DAILY [facility] Last Admin: 07/08/24 09:04 Dose: 324 mg Documented By: GERALD Fluticasone/Vilanterol (Fluticasone/Vilanterol 200/25 Blst.W.Dev) 1 puff INHALE RDAILY [facility] Last Admin: 07/08/24 07:13 Dose: 1 puff Documented By: GRANT Gabapentin (Gabapentin 400 Mg Capsule) 800 mg PO TID [facility] Last Admin: 07/08/24 09:03 Dose: 800 mg Documented By: GERALD Heparin Sodium (Porcine) (Heparin Sodium,Porcine 5,000 Unit/Ml Vial) 2,300 unit 40 unit/kg (2300 unit) IVPUSH PROTOCOL BOLUS PRN; Protocol PRN Reason: 40 unit/kg - Heparin Protocol Heparin Sodium (Porcine) (Heparin Sodium,Porcine 5,000 Unit/Ml Vial) 4,600 unit 80 unit/kg (4600 unit) IVPUSH PROTOCOL BOLUS PRN; Protocol PRN Reason: 80 unit/kg - Heparin Protocol Heparin Sodium/Sodium Chloride (Heparin Sodium,Porcine/1/2ns) 25,000 unit in 250 mls @ 0 mls/hr IVCONT .Q0M [facility]; Protocol Last Titration: 07/08/24 09:22 Dose: 8 units/kg/hr, 4.62 mls/hr Documented By: GERALD Co-signed By: LUIS Nitroglycerin (Nitroglycerin 0.4 Mg Tab.Subl) 0.4 mg SUBLINGUAL Q5MX3 PRN PRN Reason: Chest Pain Omeprazole (Omeprazole 20 Mg Capsule.) 20 mg PO DAILY@0630 [facility] Last Admin: 07/08/24 06:38 Dose: 20 mg Documented By: LAURIE Ondansetron HCl (Ondansetron Hcl 4 Mg/2 Ml Vial) 4 mg IVPUSH Q4H PRN PRN Reason: Nausea and Vomiting Last Admin: 07/07/24 09:47 Dose: 4 mg Documented By: ADALBERTO Sacubitril/Valsartan (Sacubitril/Valsartan 97/103 1 Tab Tablet) 1 tab PO BID [facility]; Protocol Last Admin: 07/08/24 09:25 Dose: Not Given Documented By: GERALD Non-Admin Reason: Med Not Available Sodium Chloride (0.9 % Sodium Chloride Flush 3 Ml Syringe) 3 ml IVFLUSH QSHIFT [facility] Last Admin: 07/08/24 09:24 Dose: Not Given Documented By: GERALD Non-Admin Reason: IV Running Tiotropium Shokan (Tiotropium Shokan 2.5 Mcg 1 Puff/2.5 Mcg Mist.Inhal) 2 puff INHALE RDAILY [facility] Last Admin: 07/08/24 07:13 Dose: 2 puff Documented By: GRANT Trazodone HCl (Trazodone Hcl 50 Mg Tablet) 150 mg PO BEDTIME [facility] Last Admin: 07/07/24 22:17 Dose: 150 mg Documented By: LAURIE Labs 07/08/24 04:17 07/07/24 04:28 Labs: Laboratory Results - last 24 hr 07/07/24 07/07/24 07/08/24 11:11 17:49 01:19 MCV MCH MCHC RDW Plt Count MPV Absolute Nucleated RBC Nucleated RBC % (auto) PT 12.1 INR 1.0 aPTT Heparin Protocol 28.8 L 82.4 H D 62.5 D Troponin I High Sens 4.4 07/08/24 07/08/24 04:17 07:32 MCV 79.1 L MCH 24.5 L MCHC 30.9 L RDW 15.4 Plt Count 200 MPV 10.7 Absolute Nucleated RBC 0.000 Nucleated RBC % (auto) 0.0 PT 12.0 INR 1.0 aPTT Heparin Protocol 84.7 H D Troponin I High Sens Assessment and Plan (1) Unstable angina: Status: Acute (2) Hypokalemia: Status: Acute (3) Hypertensive emergency: Status: Acute Plan 63-year-old female patient with past medical history significant for CABG in 2019 [place] to LAD, saphenous vein graft to PDA and saphenous vein graft to obtuse marginal, status post repeat cardiac catheterization in 2019 in 2020 both showed patent grafts, echo in 2021 showed EF 30-35%, improved to 60% in 2022, history of bilateral renal stent placement presented to [facility] with elevated systolic BP 207/112 associated with chest tightness with radiation to left arm and shortness of breath workup showed normal troponin, EKG with no acute ischemic changes patient was treated with amlodipine, hydralazine 10 mg IV and Lasix , chest pain resolved blood pressure improved, and patient admitted to telemetry unit. Hypertensive emergency/unstable angina patient developed chest pain again, without radiation to left arm associated with diaphoresis at that time blood pressure was 170-180 range, repeat blood pressure without treatment dropped to 110, EKG at this time showed T-wave inversion in lead v3 -v6 , troponin remained negative, started on IV heparin, case discussed with Cardiology they recommend to transfer patient to [facility] for angiography, with concern for ischemia in obtuse marginal/diagonal territory could representing graft occlusion, due to soft blood pressure will DC Lasix, place her back on Norvasc 5 mg and continue aspirin, statin, Plavix and Coreg and IV heparin, chest pain resolved, no arrhythmias noted on tele monitor, no evidence of CHF, renal function stable, CTA chest, abdomen and pelvis showed no evidence of aortic dissection showed infrarenal abdominal aortic aneurysm at 3 cm, bilateral renal artery stents are patent with associated atrophy of the lower pole of the left kidney, incidental note made of mild cardiomegaly, mild emphysema, benign hepatic cysts and degenerative changes in the spine. Hypertensive emergency patient was evaluated by Nephrology they recommended to increase amlodipine to 10 mg,( home dose of 5 mg) and add oral hydralazine 25 mg by mouth t.i.d. and recommended to avoid rapidly active intravenous agents, since patient noted to have low blood pressure this morning will hold off on adding hydralazine, follow blood pressure closely on current medications as per patient she is compliant with all home medications. Acute hypokalemia repleted and normalized History of CVA, cont. aspirin Plavix and statin type 2 diabetes mellitus blood sugars stable 114 will hold Jardiance. DVT prophylaxis on heparin In my clinical judgment patient need continued inpatient hospitalization for unstable angina monitoring of blood pressure, while awaiting bed at [facility] for cardiac catheterization. Quality Stroke Does the patient have a stroke diagnosis?: No VTE Prior VTE?: No VTE Risk Level:: Medical - moderate - high VTE Device Contraindication: Treatment Not Indicated VTE Drug Contraindication: N/A - Med Ordered
--- NOTE | 2024-07-08 11:38 | PM.PNCARD ---
Subjective Subjective Date of Service: 07/08/24 Principal diagnosis: Unstable angina Interval history: No recurrent chest pain. Troponins are negative. Blood pressure is better controlled. Awaiting transfer to [facility] Review of Systems Review of Systems Yes all other systems are reviewed and are negative Physical Exam Vital Signs: Last Vital Signs Temp 97.1 F 07/08/24 11:04 Pulse 67 07/08/24 11:04 Resp 20 07/08/24 11:04 BP 137/78 07/08/24 11:04 Pulse Ox 98 07/08/24 11:04 O2 Del Method Nasal Cannula 07/08/24 11:04 O2 Flow Rate 2 07/08/24 11:04 BMI result Body Mass Index 22.3 Const Other: General awake alert x3, no distress Neck supple no JVD. CVS regular rate rhythm, Respiratory lungs clear to auscultation, no respiratory distress, no wheeze, no rhonchi. Gastrointestinal abdomen soft, non tender, bowel sounds audible Extremities no edema. Neuro non focal Skin no rash Psych appropriate affect/mild anxiety Objective Labs and Meds 07/08/24 04:17 07/07/24 04:28 Lab results: Laboratory Results - last 24 hr 07/07/24 07/07/24 07/08/24 11:11 17:49 01:19 WBC RBC Hgb Hct MCV MCH MCHC RDW Plt Count MPV Absolute Nucleated RBC Nucleated RBC % (auto) PT INR aPTT Heparin Protocol 82.4 H D 62.5 D Troponin I High Sens 4.4 07/08/24 07/08/24 04:17 07:32 WBC 4.6 L RBC 4.74 Hgb 11.6 L Hct 37.5 MCV 79.1 L MCH 24.5 L MCHC 30.9 L RDW 15.4 Plt Count 200 MPV 10.7 Absolute Nucleated RBC 0.000 Nucleated RBC % (auto) 0.0 PT 12.0 INR 1.0 aPTT Heparin Protocol 84.7 H D Troponin I High Sens Progress Note: A&P Assessment and plan (1) Unstable angina: Status: Acute Assessment and Plan: Unstable angina with recurrent chest pain syndrome in setting of initially significantly elevated blood pressure and then subsequently relative low blood pressure. New EKG changes suggestive of anterolateral ischemia possibly suggestive of graft closure in the OM/diagonal territory. Currently chest pain-free. Currently receiving IV heparin. Blood pressure is controlled on current therapy. Since that patient might have issue with noncompliance as she came with significantly elevated blood pressure with the same medications at home, blood pressure currently is well optimized. Scheduled for cardiac catheterization at [facility] once transfer happens. Continue IV heparin till that. Continue aspirin, high-intensity statin therapy. Will sign of the case. Time Spent With Patient Time: Total time managing care of this patient today ____ minutes. Progress Note: Quality Stroke Does the patient have a stroke diagnosis?: No Procedures Date of Service Date of Service: 07/08/24
[2024-07-08] MEDS: Butalb/Acetamin/Caff 50/325/40 TABLET 1 TAB PO (13:11)
[2024-07-08] MEDS: Heparin Sodium,Porcine/1/2NS 25,000 UNIT/250 ML IV.SOLN 4.62 UNIT IVCONT (13:14)
== END 2024-07-08 15:39 | disposition short-term general hospital (02) | DRG 198 ==
LOC: HO.ED 19:50 → HO.EDOVER 23:36 → HO.IMC 07-08 07:25
PROVIDERS: Registered Nurse Emergency; Admitting Provider Internal Medicine; Emergency Provider Emergency Medicine; PCP Nurse Practitioner Primary Care; Visit Provider Hospitalist
DX: I25.110 Atherosclerotic heart disease of native coronary artery with unstable angina pectoris (principal); M32.9 Systemic lupus erythematosus, unspecified; I50.22 Chronic systolic (congestive) heart failure; D70.9 Neutropenia, unspecified; I11.0 Hypertensive heart disease with heart failure; D64.9 Anemia, unspecified; E78.5 Hyperlipidemia, unspecified; E87.6 Hypokalemia; E11.9 Type 2 diabetes mellitus without complications; I16.1 Hypertensive emergency; I71.43 Infrarenal abdominal aortic aneurysm, without rupture; J43.9 Emphysema, unspecified; Z95.5 Presence of coronary angioplasty implant and graft; Z86.73 Personal history of transient ischemic attack (TIA), and cerebral infarction without residual deficits; Z79.02 Long term (current) use of antithrombotics/antiplatelets; Z79.82 Long term (current) use of aspirin; Z79.899 Other long term (current) drug therapy
CPT/HCPCS: 36415; 71046; 71275; 74174; 80048; 80053; 81001; 83735; 83880; 84484; 85025; 85027; 85610; 85730; 93005; 93306; 94640; 99285; J0360; J1644; J2270; J2405; Q9957

== ENCOUNTER 2024-07-06 23:28 | Outpatient (BNV) | payer MEDICAID, SELFPAY | END 2024-07-07 07:00 | PROVIDERS: Admitting Provider Internal Medicine; Emergency Provider Emergency Medicine; Visit Provider Internal Medicine Cardiovascular Disease | DX: I20.0 Unstable angina (principal); R93.1 Abnormal findings on diagnostic imaging of heart and coronary circulation | CPT/HCPCS: 93306 ==

== ENCOUNTER → 2024-07-06 23:28 | Outpatient (BNV) | payer OTHER, MEDICAID, SELFPAY | PROVIDERS: Admitting Provider Internal Medicine; Emergency Provider Emergency Medicine; Visit Provider Internal Medicine Hypertension Specialist | DX: I16.1 Hypertensive emergency (principal); N26.1 Atrophy of kidney (terminal); Z96.0 Presence of urogenital implants | CPT/HCPCS: 99223 ==

== ENCOUNTER → 2024-07-06 23:28 | Outpatient (BNV) | payer OTHER, MEDICAID, SELFPAY | PROVIDERS: Admitting Provider Internal Medicine; Emergency Provider Emergency Medicine; Visit Provider Internal Medicine Cardiovascular Disease | DX: I20.0 Unstable angina (principal) | CPT/HCPCS: 99223; 99233 ==

== ENCOUNTER → 2024-07-06 23:28 | Outpatient (BNV) | payer MEDICAID, OTHER, SELFPAY | PROVIDERS: Admitting Provider Internal Medicine; Emergency Provider Emergency Medicine; Visit Provider Internal Medicine | DX: I20.0 Unstable angina (principal); I16.1 Hypertensive emergency; I50.33 Acute on chronic diastolic (congestive) heart failure; E87.6 Hypokalemia; R07.9 Chest pain, unspecified | CPT/HCPCS: 99223; 99233; 99239 ==

== ENCOUNTER 2024-08-09 12:59 | Outpatient (AMB) | payer MEDICAID, SELFPAY ==
--- NOTE | 2024-08-09 13:15 | HO.NEPHOV_ITS ---
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 Accompanied by: Self / Same As Patient Allergies cat dander [CAT DANDER] Allergy (Mild, Verified 08/09/24 13:17) ITCHY EYES Medication List - Last Reconciled 08/09/24 by Brannon Liz MD albuterol sulfate 90 mcg/actuation (Ventolin HFA) 2 puffs inhalation Q6H PRN amlodipine 5 mg PO DAILY ascorbic acid (vitamin C) 250 mg PO DAILY aspirin 81 mg PO DAILY atorvastatin 40 mg PO DAILY budesonide-formoterol 160-4.5 mcg/actuation (Symbicort) 2 puffs inhalation BID carvedilol 25 mg PO BID clopidogrel 75 mg PO DAILY duloxetine 60 mg PO DAILY ferrous sulfate (FeroSul) 325 mg PO DAILY gabapentin 800 mg PO TID heparin(porcine) in 0.45% NaCl 25,000 unit/250 mL 25,000 units (250 mL) continuous IV infusion .Q0M nitroglycerin 0.4 mg sublingual Q5M PRN pantoprazole 40 mg PO DAILY@0630 sacubitril-valsartan 97-103 mg (Entresto) 1 tab PO BID trazodone 150 mg PO BEDTIME umeclidinium 62.5 mcg/actuation (Incruse Ellipta) 1 inh inhalation DAILY HPI Comments Details: 63-year-old man with a history of atrophic left kidney has been referred for further evaluation of chronic kidney disease. She has a history of hepatitis-C which was treated in 2022 with Mavyrrodo History of coronary disease status post CABG in 2019. Reason fraction was 55- 60% as of 07/08/2023 History of congestive heart failure. 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 History of COPD with asthma. History of SLE/arthritis. History of AAA. Renal duplex done in 12/08/2019 did not reveal any significant renal artery stenosis. There was infrarenal abdominal aortic aneurysm measuring 3.1 cm in 2019. 08/09/2024 History of bilateral renal artery stenosis status post stent on both sides both stents were open as per recent CT scan in 07/08/2024 [facility] Medical History (Updated 07/18/24 @ 14:49 by Emily Anderson CMA) Insomnia Former heavy tobacco smoker Iron deficiency Abnormal mammogram Osteopenia Lupus (systemic lupus erythematosus) Hypercholesterolemia GERD (gastroesophageal reflux disease) COPD (chronic obstructive pulmonary disease) Polyneuropathy Occlusion and stenosis of left vertebral artery CVA (cerebral vascular accident) Heart failure with recovered ejection fraction (HFrecEF) Arthritis SLE (systemic lupus erythematosus related syndrome) CKD (chronic kidney disease) COPD with asthma Hyperlipidemia Hypertension Atherosclerotic cardiovascular disease Diabetes Surgical History Status post aorto-coronary artery bypass graft History of open heart surgery Family History Father Heart attack Social History Household Members: Family Housing: House Alcohol intake: never Patient Tobacco Use Status: Never used Tobacco Substance Use Type: Marijuana service: No Review of Systems Neuro Denies confusion Psych Denies confusion Physical Exam Vital Signs: Last Vital Signs Pulse 86 08/09/24 13:16 BP 130/70 08/09/24 13:16 Pulse Ox 95 08/09/24 13:16 Oxygen Delivery Method Room Air 08/09/24 13:16 BMI result Body Mass Index 21.3 Last Vital Signs Temp 97.7 F 07/06/24 19:38 Pulse 71 07/07/24 11:53 Resp 14 07/07/24 11:53 BP 116/70 07/07/24 11:53 Pulse Ox 98 07/07/24 11:53 O2 Del Method Nasal Cannula 07/07/24 11:53 O2 Flow Rate 1 07/07/24 11:53 BMI result Body Mass Index 22.5 Const General: No confusion Orientation/consciousness: No confusion Neck Neck: Yes supple Resp Auscultation: clear to auscultation bilaterally Cardio Palpation: no palpable S3 Heart sounds: no rubs GI Palpation (GI): Soft to palpation Auscultation: normal bowel sounds Neuro General: No confusion Motor exam (neuro): no asterixis Results Reviewed Nephrology Results: Hgb 11.6 g/dl (12.0-16.0) L 07/08/24 WBC 4.6 X10*3/uL (4.8-10.8) L 07/08/24 Plt Count 200 X10*3/uL (160-400) 07/08/24 Sodium 139 mmol/L (135-145) 07/07/24 Potassium 3.9 mmol/L (3.3-5.1) 07/07/24 Chloride 104 mmol/L (96-108) 07/07/24 Carbon Dioxide 25 mmol/L (22-29) 07/07/24 BUN 15 mg/dL (9-16) 07/07/24 Creatinine 1.04 mg/dL (0.5-1.4) 07/07/24 Calcium 10.4 mg/dL (8.4-10.2) H 07/07/24 Urine Protein Negative mg/dL (Neg-Trace) 07/06/24 Assessment & Plan Assessment & Plan (1) Hypertension: Code(s): I10 - Essential (primary) hypertension Category: Medical (2) Atrophy of left kidney: Code(s): N26.1 - Atrophy of kidney (terminal) Category: Medical (3) CKD (chronic kidney disease): Code(s): N18.9 - Chronic kidney disease, unspecified Category: Medical Plan 63-year-old woman with a history of atrophic left kidney with a baseline creatinine of 0.9 mg/dL in the setting of coronary disease and significant peripheral vascular disease and infrarenal abdominal aortic aneurysm has resistant hypertension. Today blood pressure is well controlled Continue with current antihypertensive regimen. Discussed low-salt Keep amlodipine 5 mg once a day. Titrate the dose as tolerated. History of renal artery stenosis with atrophic left kidney CTA in 07/08/2024 showed 1. No evidence of aortic dissection. 2. Infrarenal abdominal aortic aneurysm at 3 cm. 3. Bilateral renal artery stents are patent with associated atrophy of the lower pole of the left kidney. 4. Incidental note made of mild cardiomegaly, mild emphysema, benign hepatic cyst and degenerative changes in the spine. Goal is to slow the portion disease Continue overt nephrotoxic agents including NSAIDs. Continue to avoid hypotension She will follow along closely with the team. Orders: Orders Basic Metabolic Panel 3 Months I10 - Essential (primary) hypertension, N18.9 - Chronic kidney disease, unspecified, N26.1 - Atrophy of kidney (terminal) Coding Level of Care Code Est Pt Level 4 (15288) Diagnoses Hypertension I10 Atrophy of left kidney N26.1 CKD (chronic kidney disease) N18.9
[2024-08-09 13:16] VITALS: BP 130/70; PULSE 86; O2SAT 95; BMI 21.3
== END 2024-08-09 13:36 | disposition home or self-care (01) ==
PROVIDERS: PCP Nurse Practitioner Primary Care; Visit Provider Internal Medicine Hypertension Specialist
DX: I12.9 Hypertensive chronic kidney disease with stage 1 through stage 4 chronic kidney disease, or unspecified chronic kidney disease (principal); N18.9 Chronic kidney disease, unspecified; N26.1 Atrophy of kidney (terminal); I71.43 Infrarenal abdominal aortic aneurysm, without rupture
CPT/HCPCS: 99214

== ENCOUNTER → 2024-08-09 12:59 | Outpatient (BNVA) | payer MEDICAID, SELFPAY | PROVIDERS: PCP Nurse Practitioner Primary Care; Visit Provider Internal Medicine Hypertension Specialist | DX: N26.1 Atrophy of kidney (terminal) (principal); N18.9 Chronic kidney disease, unspecified | CPT/HCPCS: 99212 ==

== ENCOUNTER 2024-09-06 14:48 | Outpatient (REF) | payer MEDICAID, SELFPAY ==
[2024-09-06 16:05] LABS: MANUAL DIFF FLAG NO
[2024-09-06 16:30] LABS: Basophils Percent Auto 0.3 % (0-2); Eosinophils Absolute Auto 0.4 X10*3/uL (0.0-0.4); Eosinophils Percent Auto 6.5 % (0-4); Hemoglobin 11.4 g/dl (12.0-16.0); Imm Gran Abs Auto 0.03 X10*3/uL (0.00-0.03); Imm Gran Pct Auto 0.5 % (0.0-0.4); Lymphocytes Absolute Auto 1.6 X10*3/uL (1.2-4.9); Mean Corpuscular Hemoglobin 24.1 pg (27.0-33.0); Mean Corpuscular Volume 80.3 fL (80.0-98.0); Mean Platelet Volume 11.5 fL (9.4-12.3); Monocytes Absolute Auto 0.5 X10*3/uL (0.1-1.2); Monocytes Percent Auto 8.2 % (2-11); Neutrophils Absolute Auto 3.4 x10*3/uL (2.0-8.3); Neutrophils Percent Auto 57.5 % (45-73); Platelet Count 218 X10*3/uL (160-400); Red Blood Count 4.73 X10*6/uL (4.20-5.50); Red Cell Distribution Width 15.1 % (11.0-16.0); White Blood Count 5.9 X10*3/uL (4.8-10.8)
[2024-09-06 16:52] LABS: Creatinine Urine 125.59 mg/dL; Protein/Creatinine Ratio, Ur 0.18 (<0.2); Total Protein Urine Random 23 mg/dL (<12)
[2024-09-06 17:08] LABS: Erythrocyte Sedimentation Rate 31 MM/HR (0-20)
[2024-09-06 18:09] LABS: Alanine Aminotransferase 13 U/L (0-31); Albumin Level 3.9 g/dL (3.5-5.0); Alkaline Phosphatase 80 U/L (39-117); Anion Gap 11 (12-20); Aspartate Amino Transferase 21 U/L (5-31); Bilirubin Total 0.3 mg/dL (0.0-1.0); Blood Urea Nitrogen 11 mg/dL (9-16); C Reactive Protein 1.91 mg/dL (< or = 0.50); Calcium 9.7 mg/dL (8.4-10.2); Carbon Dioxide 27 mmol/L (22-29); Chloride 108 mmol/L (96-108); Cholesterol 96 mg/dL (<200); Estimated Glomerular Filt Rate > 60; Glucose Random 95 mg/dL (60-115); HDL Cholesterol 40 mg/dL (>40); LDL Cholesterol Calculated 41 mg/dL (<100); Potassium 3.5 mmol/L (3.3-5.1); Sodium 142 mmol/L (135-145); Total Protein 7.5 g/dL (6.5-8.0); Triglycerides 78 mg/dL (<150)
[2024-09-07 04:02] LABS: HIV AB/AG Nonreactive (Nonreactive); HIV Num 1 0.06 S/CO (0.00-0.99); ~HepC Num1 9.98 S/CO (0.00-0.79); ~Hepatitis C Antibody Reactive (Nonreactive)
[2024-09-08 14:28] LABS: HCV Log PCR <1.18 NOT DETECTED Log IU/mL (NOT DETECTED); HepC Viral Load <15 NOT DETECTED IU/mL (NOT DETECTED)
[2024-09-09 11:47] LABS: Anti Nuclear Antibody Pattern Nuclear, Speckled; Anti Nuclear Antibody Screen POSITIVE (NEGATIVE)
== END 2024-09-06 14:49 | disposition home or self-care (01) ==
LOC: HO.HHCL 14:48
PROVIDERS: Visit Provider Nurse Practitioner Family
DX: Z00.00 Encounter for general adult medical examination without abnormal findings (principal); Z11.4 Encounter for screening for human immunodeficiency virus [HIV]; M32.9 Systemic lupus erythematosus, unspecified; Z95.1 Presence of aortocoronary bypass graft
CPT/HCPCS: 36415; 80053; 80061; 82570; 84156; 85025; 85652; 86038; 86039; 86140; 86803; 87389; 87522

== ENCOUNTER 2024-09-21 09:31 | Outpatient (AMB) | payer MEDICAID, SELFPAY ==
[2024-09-21 09:33] VITALS: BP 114/72; PULSE 63; BMI 20.6
--- NOTE | 2024-09-21 09:33 | MHC.OFFVIS ---
Vital Signs 09/21/24 09:33 Height 5 ft 3 in Weight 116 lb 2.938 oz BMI 20.6 BP 114/72 Blood Pressure Location Rt brachial Position Sitting Pulse 63 Pulse Source Pulse Oximeter Intake Visit Reasons: SLE/CM Intake Note: New patient externally referred by Emma De La Cruz [facility]. Presents today for SLE. Location? Patient c/o pain all over her body. How long? It's been going on for a few months now. Rx used? Patient is taking Gabapentin with no relief. Dual Rate Dealer Required: No Accompanied by: Self / Same As Patient Allergies cat dander [CAT DANDER] Allergy (Mild, Verified 09/21/24 09:42) ITCHY EYES Medication List - Last Reconciled 09/21/24 by Charlotte Elaine MD albuterol sulfate 90 mcg/actuation (Ventolin HFA) 2 puffs inhalation Q6H PRN amlodipine 5 mg PO DAILY ascorbic acid (vitamin C) 250 mg PO DAILY aspirin 81 mg PO DAILY atorvastatin 40 mg PO DAILY budesonide-formoterol 160-4.5 mcg/actuation (Symbicort) 2 puffs inhalation BID carvedilol 25 mg PO BID clopidogrel 75 mg PO DAILY duloxetine 60 mg PO DAILY ferrous sulfate (FeroSul) 325 mg PO DAILY gabapentin 800 mg PO TID nitroglycerin 0.4 mg sublingual Q5M PRN pantoprazole 40 mg PO DAILY@0630 sacubitril-valsartan 97-103 mg (Entresto) 1 tab PO BID trazodone 150 mg PO BEDTIME umeclidinium 62.5 mcg/actuation (Incruse Ellipta) 1 inh inhalation DAILY HPI Comments Details: Patient is a 60-year-old female former smoker with 61 pack years with a complex medical history including severe multivessel coronary artery disease status post CABG in 2018, hypertension, hyperlipidemia, COPD with asthma, CKD with only 1 functional kidney (left kidney atrophy), heart failure with recovered ejection fraction, history of CVA occlusion and stenosis of left vertebral artery and history of hepatitis-C status post treatment 2022. Here today to establish care for management of systemic lupus erythematosus. SLE - Diagnosed with SLE 6 years (2018) by a clinical care coordinator in [place] - joint pain and stiffness (hands, feet, shoulders) - Given gabapentin - Also told she has fibromyalgia - No other organ involvement such as skin, kidneys Has sister with lupus Main complaint today is whole body pain, specifically hands and feet Denies rashes, photosensitivity, alopecia, oral/nasal ulcers, sicca symptoms, lymphadenopathy, chest pain/shortness of breath, prolonged morning stiffness (has about 10-15 minutes of morning stiffness), foamy urine, lower extremity edema, muscle weakness, Raynaud's [facility] Medical History (Updated 09/21/24 @ 10:46 by Charlotte Elaine MD) Fibromyalgia Insomnia Former heavy tobacco smoker Iron deficiency Abnormal mammogram Osteopenia Lupus (systemic lupus erythematosus) Hypercholesterolemia GERD (gastroesophageal reflux disease) COPD (chronic obstructive pulmonary disease) Polyneuropathy Occlusion and stenosis of left vertebral artery CVA (cerebral vascular accident) Heart failure with recovered ejection fraction (HFrecEF) Arthritis CKD (chronic kidney disease) COPD with asthma Hyperlipidemia Hypertension Atherosclerotic cardiovascular disease Diabetes Surgical History Status post aorto-coronary artery bypass graft History of open heart surgery Family History Father Heart attack Social History Household Members: Family Housing: House Alcohol intake: never Patient Tobacco Use Status: Never used Tobacco Substance Use Type: Marijuana service: No Review of Systems Const Details: Review of Systems Constitutional: Denies fever, chills, weight loss ENT: Denies vision changes, eye pain or eye redness, dental caries, dry mouth GI: Denies nausea, vomiting, diarrhea, abdominal pain, change in BM Pulm: Denies SOB, GONZALES, hemoptysis, wheezing Cards: Denies chest pain, palpitations Skin: Denies Raynaud's, rash, nail changes, photosensitivity, 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 Well appearing and in no apparent painful distress HEENT Conjunctiva and sclera clear. ?Pupils equal round and reactive to light. ?No lymphadenopathy. No evidence of discoid rash to the pema of ears CHEST/RESPIRATORY SYSTEM Normal respiratory effort and able to speak in complete sentences. ?Clear to auscultation bilaterally. ?No crackles, rales, rhonchi, wheezes heard. CARDIAC SYSTEM Regular rate and rhythm. ?S1 and S2 heard no murmurs. ?Radial pulses intact bilaterally MSK Hands: ?Good credit director strength bilaterally. ?No deformities noted. ?No synovitis noted to the MCPs, PIPs or DIPs. ?No tenderness to palpation of these joints. Tenderness to palpation of non joint areas of the hands. Wrists: ?Full range of motion at the wrists without pain. ?No tenderness to palpation or synovitis noted to the wrists. Elbows: Full range of motion without pain. No tenderness, weakness, swelling, increased warmth or erythema. Shoulders: Decreased active range of motion secondary to pain over the deltoid. Full passive range of motion.. Hips: Full range of motion without pain. Hip bursa: No tenderness to palpation Knees: ?Full range of motion. ?No tenderness, swelling, increased warmth or erythema. Bilateral crepitations Ankles: Full range of motion. ?No tenderness, swelling, increased warmth or erythema.? Feet: ?Negative squeeze test. ?No tenderness to palpation or swelling of the MTPs. Tender points:? Tenderness to palpation of the neck, shoulders, chest, elbows, hips, buttocks or knees. SKIN Skin intact without rashes. Hair thinning Results Reviewed Results Reviewed: Laboratory Tests 09/06/24 14:49 WBC 5.9 RBC 4.73 Hgb 11.4 L Hct 38.0 Plt Count 218 ESR 31 H Sodium 142 Potassium 3.5 Chloride 108 Carbon Dioxide 27 BUN 11 Creatinine 0.85 Estimated GFR > 60 AST 21 ALT 13 Alkaline Phosphatase 80 C-Reactive Protein 1.91 H LORI Screen POSITIVE A LORI Titer 1:80 H LORI Pattern Nuclear, Speckled A Hepatitis C Ab (EIA) Reactive H Hep C Viral Load <15 NOT DETECTED Hep C Viral Load Log <1.18 NOT DETECTED Assessment & Plan Assessment & Plan (1) Lupus (systemic lupus erythematosus): Code(s): M32.9 - Systemic lupus erythematosus, unspecified Category: Medical Qualifiers: Systemic lupus erythematosus type: unspecified Systemic lupus erythematosus organ involvement: unspecified Qualified Code(s): M32.9 - Systemic lupus erythematosus, unspecified Plan: #SLE Patient carries a diagnosis of lupus. Diagnosed 6 years ago in [place] by a clinical care coordinator. Has never been on Plaquenil or any other lupus related medications. This leads me to think that she may not actually have lupus and maybe just have fibromyalgia in the setting of a positive LORI. She has been on gabapentin 800 mg 3 times a day is really will relief to her pain. Her main complaint right now is whole-body pain. She does not have any prolonged morning stiffness or any evidence of synovitis today on examination. We will send lupus blood work including antiphospholipid and urine tests. We will also send x-rays of the hands, wrists, shoulders and knees. RTC 4 months (2) Fibromyalgia: Code(s): M79.7 - Fibromyalgia Category: Medical Plan: #Fibromyalgia I really believe patient has a diagnosis of primary fibromyalgia and not secondary but I will review the x-rays before committing her to this diagnosis. Adding tramadol Plan I spent 45 minutes reviewing the record and labs, seeing the patient, discussing the treatment plan and documenting in the medical record ? Orders: Orders DNA Double Stranded-Crithidia Today M32.9 - Systemic lupus erythematosus, unspecified Erythrocyte Sedimentation Rate Today M32.9 - Systemic lupus erythematosus, unspecified Lupus Anticoagulant Panel Today M32.9 - Systemic lupus erythematosus, unspecified UA w Microscopic Today M32.9 - Systemic lupus erythematosus, unspecified Cardiolipin Antibodies Today M32.9 - Systemic lupus erythematosus, unspecified XR hand wrist RT Today M32.9 - Systemic lupus erythematosus, unspecified XR foot RT min 3V Today M32.9 - Systemic lupus erythematosus, unspecified XR knee standing BI Today M32.9 - Systemic lupus erythematosus, unspecified Lactate Dehydrogenase Today M32.9 - Systemic lupus erythematosus, unspecified LORI Reflex Titer and Pattern Today M32.9 - Systemic lupus erythematosus, unspecified Anti DNA DS Antibody Today M32.9 - Systemic lupus erythematosus, unspecified Anti Extractable Nuclear Ag Today M32.9 - Systemic lupus erythematosus, unspecified Complement C3 Today M32.9 - Systemic lupus erythematosus, unspecified Complement C4 Today M32.9 - Systemic lupus erythematosus, unspecified C Reactive Protein Today M32.9 - Systemic lupus erythematosus, unspecified Protein Creatinine Ratio, Ur Today M32.9 - Systemic lupus erythematosus, unspecified Sjogren's Antibodies Today M32.9 - Systemic lupus erythematosus, unspecified Beta-2 Glycoprotein Antibody Today M32.9 - Systemic lupus erythematosus, unspecified XR hand wrist LT Today M32.9 - Systemic lupus erythematosus, unspecified XR foot LT min 3V Today M32.9 - Systemic lupus erythematosus, unspecified XR knee RT 3V Today M32.9 - Systemic lupus erythematosus, unspecified XR knee LT 3V Today M32.9 - Systemic lupus erythematosus, unspecified Direct Preethi (DELBERT) Today M32.9 - Systemic lupus erythematosus, unspecified Reticulocyte Count Today M32.9 - Systemic lupus erythematosus, unspecified Haptoglobin Today M32.9 - Systemic lupus erythematosus, unspecified Medications: New tramadol 50 mg PO DAILY 90 tabs 1RF M79.7 - Fibromyalgia Coding Level of Care Code New Pt Level 4 (69879) Complex EM visit Add On G2211 Diagnoses Systemic lupus erythematosus, unspecified SLE type, unspecified organ involvement status M32.9 Systemic lupus erythematosus type: unspecified Systemic lupus erythematosus organ involvement: unspecified Fibromyalgia M79.7
== END 2024-09-21 10:34 | disposition home or self-care (01) ==
PROVIDERS: PCP Nurse Practitioner Primary Care; Visit Provider Student in an Organized Health Care Education/Training Program
DX: M32.9 Systemic lupus erythematosus, unspecified (principal); M79.7 Fibromyalgia
CPT/HCPCS: 99204

== ENCOUNTER → 2024-09-21 09:31 | Outpatient (BNVA) | payer MEDICAID, SELFPAY | PROVIDERS: PCP Nurse Practitioner Primary Care; Visit Provider Student in an Organized Health Care Education/Training Program | DX: M32.9 Systemic lupus erythematosus, unspecified (principal); M79.7 Fibromyalgia | CPT/HCPCS: 99202 ==

== ENCOUNTER 2024-11-09 13:06 | Outpatient (REF) | payer MEDICAID, SELFPAY ==
[2024-11-15 12:13] LABS: HPV Genotype 16 Negative (Negative); HPV Genotype 18 Negative (Negative); HPV High Risk Negative (Negative)
== END 2024-11-09 13:07 | disposition home or self-care (01) ==
LOC: HO.LNP 13:06
PROVIDERS: Visit Provider Nurse Practitioner Family
DX: Z12.4 Encounter for screening for malignant neoplasm of cervix (principal); R32 Unspecified urinary incontinence; Z11.51 Encounter for screening for human papillomavirus (HPV); Z72.89 Other problems related to lifestyle
CPT/HCPCS: 87086; 87626; 88175

== ENCOUNTER 2024-11-11 11:32 | Outpatient (REF) | payer MEDICAID, SELFPAY ==
[2024-11-11 12:25] LABS: Immature Retic Fraction 8.2 % (3.0-15.9); Retic HGB Equivalent 25.6 pg (30.0-35.0); Reticulocyte Percent 0.8 % (0.5-1.8); Reticulocytes Absolute 0.036 X10*6/uL (0.026-0.095)
[2024-11-11 12:37] LABS: Appearance Urine Clear; Color Urine Yellow; Glucose Urine UA Negative (Negative); Leukocyte Esterase Urine Trace (Negative); Nitrite Urine Negative (Negative); PH 6.5 (5.0-9.0); Specific Gravity - Urine 1.015 (1.005-1.025); UMIC TRIGGER UA YES; Urine Blood Negative (Negative); Urine Ketones Negative (Negative); Urine Protein Negative (Neg-Trace)
[2024-11-11 12:41] LABS: Bacteria Urine Trace (None Seen); Hyaline Casts Urine 0-2 /LPF (0-2); RBC Urine 0-2 /HPF (0-2); WBC Urine 0-5 /HPF (0-5)
[2024-11-11 12:56] LABS: Erythrocyte Sedimentation Rate 29 MM/HR (0-20)
[2024-11-11 13:32] LABS: Anion Gap 11 (12-20); Blood Urea Nitrogen 10 mg/dL (9-16); C Reactive Protein 0.97 mg/dL (< or = 0.50); Calcium 9.6 mg/dL (8.4-10.2); Carbon Dioxide 26 mmol/L (22-29); Chloride 109 mmol/L (96-108); Estimated Glomerular Filt Rate > 60; Glucose Random 76 mg/dL (60-115); Lactate Dehydrogenase 173 U/L (122-220); Potassium 3.7 mmol/L (3.3-5.1); Sodium 142 mmol/L (135-145)
[2024-11-11 13:35] LABS: Haptoglobin 185 mg/dL (63-273)
[2024-11-11 13:36] LABS: Creatinine Urine 101.34 mg/dL; Protein/Creatinine Ratio, Ur 0.09 (<0.2); Total Protein Urine Random 9 mg/dL (<12)
--- OUTSIDE RECORDS SUMMARY | 2024-11-11 13:46 | XMS_ITS | Encounter Summary ---
Demographics Address [address] [place] [address] Work Phone Email Address Preferred Language en Marital Status Mu-Ism Affiliation Unknown Race Other Race Ethnic Group or Author Organization [employer] Address [address] [place] [address] Care Team Providers Care Carbon Paper Coating Supervisor Name Role Phone Sheree Strong LISHA Primary Care Provider [phone] Reason for Visit * Reason Comments Med Refill Encounter Details Date Type Department Care Team (Late st Contact Info) Description 07/23/[address] [facility] [address] [place] [address] [phone] Emma De La Cruz ANP [address] [place] [address] Chronic obstructive pulmonary disease, unspecified COPD type (CMS/[facility]) Social History Tobacco Use Types Packs/Day Years Used Date Smoking Tobacco: Former Cigarettes Q uit: 1978 Smokeless Tobacco: Never Comments Unknown Sex and Gender Information Value Date Recorded Sex Assigned at Female 08/18/2022 10:14 AM EDT Legal Sex Female 10:14 AM EDT Gender Identity Female 05/20/2024 1:32 PM EDT Sexual Orientation Straight 05/20/2024 1: 32 PM EDT documented as of this encounter Plan of Treatment Upcoming Encounters Date Type Department Care Team (Late st Contact Info) Description 11/17/2024 10:00 AM EST Office Visit [facility] [address] [place] [address] Dante Chamberlain MD [address] [place] [address] 02/16/2025 2:00 PM EDT Office Visit [facility] [address] [place] [address] Martine Benavidez, OD [address] [place] [address] documented as of this encounter Visit Diagnoses Diagnosis Chronic obstructive pulmonary disease, unspecified COPD type (CMS/[facility]) documented in this encounter Care Teams Carbon Paper Coating Supervisor Relationship Specialty Start Date End Date Sheree Strong NP [address] [place], [place] [phone] PCP - General Family Medicine 09/06/24 documented as of this encounter
--- OUTSIDE RECORDS SUMMARY | 2024-11-11 13:46 | XMS_ITS | Clinical Summary ---
Demographics Address [address] [place] [address] Work Phone Email Address Preferred Language en Marital Status Islam Affiliation Unknown Race Other Race Ethnic Group or Author Organization [employer] Address [address] [place] [address] 7[address] [place] [address] Care Team Providers Care Towel Inspector Name Role Phone Sheree Strong LISHA Primary Care Provider [phone] Allergies No known active allergies Medications Nitrostat 0.[address] 0.4 mg under the tongue every 5 (five) minutes if needed for chest pain. If not resolved in 2 doses, call [phone] Active albuterol 108 (90 Base) MCG/ACT inhalerIndicatio ns:Chronic obstructive pulmonary disease, unspecified COPD type (CMS/HCC) Inhale 2 puffs every 6 (six) hours if needed for wheezing. 18 g 1 4 05/20/20 25 Active Ascorbic Acid (vitamin C) 250 MG tabletIndication s:Iron deficiency anemia, unspecified iron deficiency anemia type Take 1 tablet (250 mg) by mouth Once per day. Take with ferrous sulfate tablets. 90 tablet 3 4 05/15/20 25 Active sacubitril-valsa rtan (Entresto) 97-103 MG tabletIndication s:Hypertensive heart disease with congestive heart failure, unspecified heart failure type (CMS/HCC) Take 1 tablet by mouth 2 times daily. 60 tablet 12 4 05/20/20 25 Active pantoprazole (ProtoNix) 40 MG EC tabletIndication s:Gastro-esophag eal reflux disease without esophagitis Take 1 tablet (40 mg) by mouth before breakfast. 90 tablet 1 4 Active Jardiance 10 MGIndications:Hy pertensive heart disease with congestive heart failure, unspecified heart failure type (CMS/HCC) Take 1 tablet (10 mg) by mouth Once per day. 90 tablet 1 4 Active furosemide (Lasix) 20 MG tabletIndication s:Hypertensive heart disease with congestive heart failure, unspecified heart failure type (CMS/HCC) Take 1 tablet (20 mg) by mouth Once daily. 30 tablet 2 4 Active ferrous sulfate 325 (65 Fe) MG tabletIndication s:Iron deficiency anemia, unspecified iron deficiency anemia type Take 1 tablet (325 mg) by mouth Once daily. With vit c 90 tablet 1 4 Active clopidogrel (Plavix) 75 MG tabletIndication s:Arterioscleros is of coronary artery Take 1 tablet (75 mg) by mouth Once per day. 90 tablet 1 4 Active carvedilol (Coreg) 25 MG tabletIndication s:Arterioscleros is of coronary artery Take 1 tablet (25 mg) by mouth 2 times daily. 180 tablet 1 4 Active atorvastatin (Lipitor) 40 MG tabletIndication s:Arterioscleros is of coronary artery Take 1 tablet (40 mg) by mouth Once per day. 90 tablet 1 4 Active aspirin 81 MG EC tabletIndication s:Arterioscleros is of coronary artery Take 1 tablet (81 mg) by mouth Once per day. 90 tablet 1 4 Active amLODIPine (Norvasc) 10 MG tablet Take 10 mg by mouth Once per day. 4 Active budesonide-formo terol (Symbicort) 160-4.5 MCG/ACT inhalerIndicatio ns:Chronic obstructive pulmonary disease, unspecified COPD type (CMS/HCC) INHALE 2 PUFFS BY MOUTH TWICE DAILY, RINSE MOUTH AFTER USING. 10.2 g 2 4 Active traZODone (Desyrel) 150 MG tabletIndication s:Insomnia, unspecified type TAKE 1 TABLET BY MOUTH EVERY DAY AT BEDTIME 30 tablet 2 4 Active DULoxetine (Cymbalta) [address] capsuleIndicatio ns:Fibromyalgia TAKE 1 CAPSULE BY MOUTH EVERY DAY 30 capsule 2 4 Active Incruse Ellipta 62.5 MCG/ACT aerosol powderIndication s:Chronic obstructive pulmonary disease, unspecified COPD type (CMS/HCC) INHALE 1 PUFF BY MOUTH EVERY DAY AT THE SAME TIME 30 each 2 Active gabapentin (Neurontin) 800 MG tabletIndication s:Polyneuropathy TAKE 1 CAPSULE BY MOUTH THREE TIMES DAILY 90 tablet 2 4 Active Active Problems Problem Noted Date Diagnosed Date Routine cervical smear 11/10/2024 Urinary incontinence 11/10/2024 Encounter for breast and pelvic examination 10/20 Abnormal breast exam 11/10/2024 Assessment & Plan (11/10/2024 1:13 PM EST): Breast examination Bilateral breast symmetrical soft and pendulous, with no scar or deformities. Skin warm, dry, absence of erythema, or edema. No open sores and no concern for peau d orange appearance Nipple-areola complex brown,nipple flat with no discharge or scaly texture concerning for paget's disease. Right breast positive for a tender sub areolar mass on the right breast Plan Diagnostic bilateral mammogram Ultrasound of the right breast Call to rebook your missed mammogram and ultra Normal pelvic exam 11/10/2024 Menopausal disorder 11/10/2024 Assessment & Plan (11/10/2024 4:28 PM EST): Hot flashes and night sweats Hormone replacement therapy contraindicated, offered trial of acupuncture to start. Will consider consider non hormonal medications if acupuncture is not helpful Renal artery stenosis 11/01/2024 Carotid artery stenosis 11/01/2024 Limping 11/01/2024 Noncompliance 10/29/2024 HTN (hypertension) 10/29/2024 Diabetes 10/25/2024 CVA (cerebral vascular accident) 10/25/2024 Stroke 10/25/2024 Other chronic pain 09/11/2024 Assessment & Plan (09/11/2024 4:04 PM EST): Pt reports pain was treated in [place], once established with rheumatology and disease flares managed (not currently) will address adjunctive pain measure Pt in agreement with this plan Health care maintenance 09/11/2024 Assessment & Plan (09/11/2024 4:02 PM EST): Referrals to eye care, dental Mammogram ordered Former heavy tobacco smoker 05/20/2024 Overview (05/20/2024): Smoked from [id number], 1-1.5 PPD, 41-61.5 PYH Lupus erythematosus 03/15/2024 Heart failure with preserved left ventricular function (HFpEF) 10/03/2023 Scoliosis deformity of spine 08/13/2023 Overview (11/01/2024): DESCRIPTION: Levoscoliosis NOTES: x ray lumbar 2022 Problem Code: M41.80; Problem Code Type: ICD-10; Spondylosis without myelopathy 08/13/2023 Overview (11/01/2024): DESCRIPTION: Facet arthropathy NOTES: x ray lumbar 2022 Problem Code: M47.819; Problem Code Type: ICD-10; Weakness 07/14/2023 Chronic combined systolic and diastolic heart fa ilure 05/20/2023 Overview (11/01/2024): DESCRIPTION: Chronic combined systolic (congestive) and diastolic (congestive) heart failure Problem Code: I50.42; Problem Code Type: ICD-10; Abnormal gait 05/11/2023 Overview (11/01/2024): DESCRIPTION: Imbalance Problem Code: R26.89; Problem Code Type: ICD-10; Acute chest pain 02/24/2023 Hypertensive heart disease with congestive heart failure 12/17/2022 Overview (05/20/2024): Echo 11/2019: EF 50-55% with septal wall motion abnormality consistent with post CABG. Renal duplex 11/2019: No renal artery stenosis. Infrarenal abdominal aortic aneurysm 3.1 cm. Lexiscan 01/2020: moderate sized reversible defect involving basal anterior and septal segments. Echo 01/2020: EF 50-55%, no significant valvular heart disease. EKG 03/2020: sinus rhythm with non-specific T-wave changes anteriorly. Cardiac cath 03/2020: Patent ALMENDAREZ-LAD, SVG-OM, SVG-PDA. Severe [place] vessel CAD. Lexiscan 06/2021: Anterior ischemia. Cardiac catheterization on 06/2021: All grafts patent x3. Echo 06/2021: Ejection fraction newly depressed at 20-25%. Echo 11/2021: EF 30-35%. Echo 07/10: EF 40-45%, grade I diastolic dysfunction. Echo 06/2023: EF 55-60%. Transient ischemic attack 12/03/2022 Overview (11/01/2024): DESCRIPTION: TIA (transient ischemic attack) NOTES: from hospitalization discharge Problem Code: G45.9; Problem Code Type: ICD-10; Systemic lupus erythematosus 09/29/2022 Assessment & Plan (09/11/2024 4:01 PM EST): Labs as ordered below, upcoming visit with rheumatology Pending chronic disease management, consider pain treatment Body mass index less than 19, adult 07/09/2022 Overview (11/01/2024): DESCRIPTION: BMI less than 19,adult Problem Code: Z68.1; Problem Code Type: ICD- 10; Loss of appetite 07/09/2022 Overview (11/01/2024): DESCRIPTION: Poor appetite Problem Code: R63.0; Problem Code Type: ICD-10; History of cerebrovascular accident 07/07/2022 History of coronary artery bypass surgery 2021 Ischemic cardiomyopathy 07/07/2022 Rheumatoid arthritis 07/07/2022 Acute kidney failure, unspecified 07/07/2022 Vertigo 07/07/2022 Heart failure with reduced ejection fraction Abdominal aortic aneurysm without rupture 2021 Overview (05/20/2024): CT 11/16/23 aneurysm of the infrarenal aorta measuring 3.1 cm.. Diffuse aortoiliac calcified atherosclerosis. Bilateral renal artery stents. Arteriosclerosis of coronary artery 06/24/2022 Overview (05/20/2024): S/p CABG x3 2019 Coronary arteriosclerosis in [place] artery 06/24 Overview (11/01/2024): I25.10: Atherosclerotic heart disease of [place] coronary artery without angina pectoris Atherosclerosis of coronary artery without angin a pectoris 03/05/2022 Acute lower respiratory tract infection 06/04/20 Overview (11/01/2024): DESCRIPTION: Acute respiratory infection Problem Code: J22; Problem Code Type: ICD-10; Neuralgia of left sciatic nerve 03/13/2021 Overview (11/01/2024): DESCRIPTION: Sciatica of left side Problem Code: M54.32; Problem Code Type: ICD- 10; Prediabetes 01/15/2021 Vitamin D deficiency 01/15/2021 Dizziness and giddiness 01/15/2021 Overview (11/01/2024): DESCRIPTION: Dizziness NOTES: pt denied associated sxs she verbalized sxs is like low BP Problem Code: R42; Problem Code Type: ICD-10; Constipation 12/13/2019 Overview (11/01/2024): DESCRIPTION: Constipation, unspecified constipation type Problem Code: K59.00; Problem Code Type: ICD-10; 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 12/13/2019 Overview (11/01/2024): DESCRIPTION: 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, unspecified vessel or lesion type Problem Code: I25.811; Problem Code Type: ICD-10; Iron deficiency anemia 06/06/2019 Chronic obstructive pulmonary disease 04/09/2019 Acute severe exacerbation of asthma 04/09/2019 Overview (11/01/2024): DESCRIPTION: Moderate asthma with status asthmaticus, unspecified whether persistent Problem Code: J45.902; Problem Code Type: ICD-10; Essential hypertension 03/29/2019 Assessment & Plan (09/11/2024 4:00 PM EST): Above goal today, at home at goal per pt report Upcoming visit with cardiology Gastro-esophageal reflux disease without esophag itis 03/29/2019 Polyneuropathy 03/29/2019 Pure hypercholesterolemia 03/29/2019 History of blood disorder 03/29/2019 Overview (11/01/2024): DESCRIPTION: History of anemia Primary insomnia 03/29/2019 Overview (11/01/2024): DESCRIPTION: Primary insomnia Problem Code: F51.01; Problem Code Type: ICD-10; Heart disease 03/29/2019 Overview (11/01/2024): DESCRIPTION: Heart disease NOTES: Patient was seen by Cardioc[facility] One week ago Dhiraj Fischer Problem Code: I51.9; Problem Code Type: ICD-10; Encounters Date Type Department Care Team Description 11/09/2024 9:15 AM EST Procedure Visit [facility] MED[facility]INE [address] [place] [phone] Dori Rhodes FNP Routine cervical smear (Primary Dx); Urinary incontinence, unspecified type; Prediabetes; Abnormal breast exam; Normal pelvic exam; Menopausal disorder 11/09/2024 Travel 11/01/2024 Telephone [facility] [address] [place] [phone] Zakia Connolly MA Chart Prep 11/01/2024 Patient Outreach [facility] [address] [place] [phone] Sheree Strong NP Transition Of Care (Tcm) (HDF scheduled) 10/31/2024 Travel 10/26/[address] [phone] Zakia Connolly MA Chart Prep 10/26/[address] [phone] Cathy Lord, MARGARITA 09/14/2024 Refill [facility] WALK[facility]IN [facility]ENTER [address] [place] [phone] Emma De La Cruz ANP Chronic obstructive pulmonary disease, unspecified COPD type (CMS/HCC); Insomnia, unspecified type; Fibromyalgia; Polyneuropathy 09/13/2024 Travel 09/07/2024 Patient Outreach [facility] PEDIATRICS [address] [place] [phone] Sheree Strong NP Care Coordination ([facility] outreach SDOH pest control - referral completed ) 09/06/2024 2:00 PM EST Office Visit [facility] MEDICINE [address] [place] [phone] Sheree Strong NP Systemic lupus erythematosus, unspecified SLE type, unspecified organ involvement status ([facility]) (Primary Dx); Hypertensive heart disease with congestive heart failure, unspecified heart failure type ([facility]); History of coronary artery bypass surgery; Type 2 diabetes mellitus with other specified complication, unspecified whether residential insulin use ([facility]); Health care maintenance; Essential hypertension; Other chronic pain 09/06/2024 Telephone [facility] [address] [place] [phone] Jose L Mahan MA SDOH positive 09/06/2024 Travel 09/01/2024 Telephone [facility] MED[facility]INE [address] [place] [address] [phone] Caprice Trimble MA chart prep 08/30/2024 Patient Outreach [facility] MED & PEDS [address] [place], [place] [phone] Sheree Strong NP Pre-visit Planning (SDOH unable to reach LVM) 08/29/[address] [phone] Oxana Crespo RN 08/29/2024 Telephone [facility] [address] [place] [address] [phone] Pradeep Arambula MA PA for Entresto 97-103mg 08/24/2024 Telephone [facility] [address] [place] [address] [phone] Emma De La Cruz ANP Prior Authorization ( PA: sacubitril-valsartan (Entresto) 97-103 MG tablet) from Last 3 Months Immunizations Name Administration Dates Next Due Hep A, Adult 04/17/2015,10/05/2013 Hep B, adult 12/18/2016,03/14/2016,08/02/2015 Influenza injectable quadriv alent IIV4 with preservative 08/02/2015 Influenza, IIV3, injectable 07/09/2024,1 ,10/16/2014,2007,07/24/2003,07/21/2002,08/10/2001,1 12/07/1999,08/12/1999 Influenza, Split (incl. david fied surface antigen) 08/04/2013,08/27/2012 Influenza, seasonal, injecta ble, preservative free 07/09/2024,10/16/2014 Pneumococcal Conjugate PCV 7 06/05/1997 TD (adult), 2 Lf tetanus tox oid, preservative free, adsorbed 04/24/2006 Td (adult), unspecified 04/24/2006 Tdap 01/10/2013 Family History Medical History Relation Name Comments Asthma Father Breast cancer Father's Sister aunt Heart disease Mother Breast cancer Mother's Sister Lupus Sister Relation Name Status Comments Father Father's Sister aunt Mother Mother's Sister Sister Social History Tobacco Use Types Packs/Day Years Used Date Smoking Tobacco: Former Cigarettes Q uit: 1977 Smokeless Tobacco: Never Depression Answer Date Recorded Patient Health Questionnaire-9 Score 17 09/06/2024 Patient Health Questionnaire-9 Score 17 09/06/2024 Last PHQ-9: Questionnaire Data Not on file 1 11/06/2023 Housing Stability Answer Date Recorded What is your housing situation today? I have chelsey briceño 09/06/[address] you li ve. Do you have problems with any of the following? Pests such as bugs, ants, or mice;Lead [place] or Pipes;Inadequate heat 09/06/2024 Food Insecurity Answer Date Recorded Within the past 12 months, y ou worried that your food would run out before you got money to buy more: Sometimes True 2023 Within the past 12 months,th e food you bought just didn't last and you didn't have enough money to get more: Never True 09/06/2024 Transportation Answer Date Recorded In the past 12 months, has l ack of transportation kept you from medical appts, meetings, work or from getting things needed for daily living? Yes, it has kept me from medical appointments or getting medications. 09/06/2024 Utilities Answer Date Recorded In the past 12 months, has t he electric, gas, oil or water company threatened to shut off services in your home? I am not sure 09/06/2024 Depression Answer Date Recorded Patient Health Questionnaire-2 Score 6 09/06/2024 Internet Access Answer Date Recorded Internet Access Q1 Yes 09/06/2024 Internet Access Q2 Not on file 09/06/2024 Comments Unknown Sex and Gender Information Value Date Recorded Sex Assigned at Female 08/18/2022 10:14 AM EDT Legal Sex Female 10:14 AM EDT Gender Identity Female 05/20/2024 1:32 PM EDT Sexual Orientation Straight 05/20/2024 1: 32 PM EDT Last Filed Vital Signs Vital Sign Reading Time Taken Comments Blood Pressure 142/90 11/09/2024 9:25 AM EST Pulse 79 11/09/2024 9:25 AM EST Temperature 36.7 ??C (98 ??F) 11/09/2024 9:25 AM EST Respiratory Rate 20 11/09/2024 9:25 AM EST Oxygen Saturation 98% 09/06/2024 1:51 PM EST Inhaled Oxygen Concentration - - Weight 50.9 kg (112 lb 4 oz) 11/09/2024 9:25 AM EST Height 152.4 cm (5') 11/09/2024 9:25 AM EST Body Mass Index 21.92 11/09/2024 9:25 AM EST Plan of Treatment Upcoming Encounters Date Type Department Care Team (Late st Contact Info) Description 11/17/2024 10:00 AM EST Office Visit [facility] MEDICINE [address] [place] [address] Name, MD Dante [address] [place] [address] 02/16/2025 2:00 PM EDT Office Visit [facility] OPTOMETRY [address] [place] [address] Pramod, Martine, OD [address] [place] [address] Health Maintenance Due Date Last Done Comments CT Colonography 1960 Colonoscopy 1960 FIT 1960 FOBT 1960 Sigmoidoscopy 1960 Pneumococcal Vaccine: Pediatrics (0 to 5 Years) and At-Risk Patients (6 to 64 Years) (1 of 2 - PCV) 1966 06/05/1997 Diabetes: Foot Exam 1970 Eye Exam 1970 Pap Smear 1981 Zoster Vaccines (1 of 2) 2010 Mammogram 08/26/2020 08/26/2018 RSV Patients and Patients Aged 60 years or older (1 - Risk 60-74 years 1-dose series) 2020 Cervical Cancer Screening 09/15/2022 HPV/Cotest 09/15/2022 09/15/2017 DTaP/Tdap/Td Vaccines (2 - Td or Tdap) 01/10/2023 01/10/2013, 04/24/2006, 04/24/2006 COVID-19 Vaccine ( season) 2024 Depression Monitoring (PHQ-9) 03/06/2025 09/06/2024, 09/06/2024 Diabetes: Hemoglobin A1C 03/06/2025 09/06/2024 Depression Screening 09/06/2025 09/06/2024, 09/06/20 24 Diabetes: Urine Protein Screening 09/06/2025 11/11/2024, 09/06/2024 Lipid Panel 09/06/2025 09/06/2024 SDOH Screening 09/06/2025 09/06/2024 Alcohol/Substance Use Screening 11/09/2025 11/09/2024 Tobacco Screening 11/09/2025 11/09/2024 Colorectal Cancer Screening 10/04/2026 FIT DNA/Cologuard 10/04/2026 10/04/2023 Hepatitis A Vaccines Aged Out 04/17/2015, 10/05/20 13 No longer eligible based on patient's age to complete this topic Hepatitis B Vaccines Completed 12/18/2016, 03/14/2016, 08/02/2015 Influenza Vaccine Completed 07/09/2024, , 08/02/2015, Additional history exists HIV Screening Completed 09/06/2024 Hepatitis C Screening Completed 09/06/2024, 024 HIB Vaccines Aged Out No longer eligi ble based on patient's age to complete this topic HPV Vaccines Aged Out No longer eligi ble based on patient's age to complete this topic IPV Vaccines Aged Out No longer eligi ble based on patient's age to complete this topic Meningococcal Vaccine Aged Out No arnie chidi eligible based on patient's age to complete this topic RSV under 20 months Aged Out No longe r eligible based on patient's age to complete this topic Rotavirus Vaccines Aged Out No longer eligible based on patient's age to complete this topic Procedures Procedure Name Priority Date/Time Associated Diagnosis Comments HAPTOGLOBIN Routine 11/11/2024 11:56 AM EST Subareolar mass of right breast SED RATE BY MODIFIED WESTERGREN Routine 11/11/2024 11:56 AM EST Subareolar mass of right breast RETICULOCYTE COUNT Routine 11/11/2024 11 :56 AM EST Subareolar mass of right breast PROTEIN CREATININE RATIO, URINE Routine 11/11/2024 11:44 AM EST Subareolar mass of right breast URINALYSIS, COMPLETE Routine 11/11/2024 11:44 AM EST Subareolar mass of right breast CULTURE, URINE, ROUTINE Routine 11/09/2024 11:30 AM EST Urinary incontinence, unspecified type POCT URINALYSIS DIPSTICK Routine 11/09/2024 11:14 AM EST Urinary incontinence, unspecified type POCT GLUCOSE Routine 11/09/2024 9:32 AM EST Prediabetes HEPATITIS C VIRAL RNA, QUANTITATIVE, REAL-TIME PCR Routine 09/06/2024 2:49 PM EST Subareolar mass of right breast HIV 1/2 ANTIGEN/ANTIBODY, FOURTH GENERATION W/RFL Routine 09/06/2024 2:49 PM EST Health care maintenance PROTEIN CREATININE RATIO, URINE Routine 09/06/2024 2:49 PM EST Systemic lupus erythematosus, unspecified SLE type, unspecified organ involvement status (CMS/HCC) LORI SCREEN, IFA, W/REFL TITER AND PATTERN Routine 09/06/2024 2:49 PM EST Systemic lupus erythematosus, unspecified SLE type, unspecified organ involvement status (CMS/HCC) HEPATITIS C AB W/REFL TO HCV RNA, QN, PCR Routine 09/06/2024 2:49 PM EST Health care maintenance CBC WITH AUTO DIFFERENTIAL Routine 09/06/2024 2:49 PM EST History of coronary artery bypass surgery SED RATE BY MODIFIED WESTERGREN Routine 09/06/2024 2:49 PM EST History of coronary artery bypass surgery C-REACTIVE PROTEIN Routine 09/06/2024 2: 49 PM EST History of coronary artery bypass surgery COMPREHENSIVE METABOLIC PANEL Routine 09/06/2024 2:49 PM EST Health care maintenance LIPID PANEL, STANDARD Routine 09/06/2024 2:49 PM EST Health care maintenance POCT GLUCOSE Routine 09/06/2024 2:22 PM EST Type 2 diabetes mellitus with other specified complication, unspecified whether emt intermediate insulin use (CMS/HCC) POCT GLYCATED HEMOGLOBIN, TOTAL Routine 09/06/2024 2:21 PM EST Type 2 diabetes mellitus with other specified complication, unspecified whether emt intermediate insulin use (CMS/HCC) BI MAMMOGRAM SCREENING BILATERAL Routine 08/26/2018 3:22 PM EST ZZZ HISTORICAL HPV MRNA E6/E7 Routine 09/15/2017 10:24 AM EST from Last 3 Months or Most Recently Relevant to Health Maintenance Results * (ABNORMAL) Sed Rate by Modified Westergren (11/11/2024 11:56 AM EST) Only the most recent of2 resultswithin the time period is included. Erythrocyte Sedimentation Rate 29(H) 0 - 20 MM/HR [facility] Comment:Patients with polycy themia and many hemoglobin abnormalitiesmay have depressed sed rates whereas patients with anemiamay have elevated sed rates. 11/11/2024 11:5 6 AM EST 11/11/2024 11:56 AM EST Generic External Data Provider LAB BLOOD ORDERAB LES Final Result Performing Organization Address [facility] de Phone Number [facility] [address] [place] [phone] * (ABNORMAL) Reticulocyte Count (11/11/2024 11:56 AM EST) Reticulocytes Absolute 0.036 0.026 - 0.095 X10*6/uL [facility] Immature Retic Fraction 8.2 3.0 - 15.9 % [facility] Retic HGB Equivalent 25.6(L) 30.0 - 35.0 pg [facility] Reticulocyte Percent 0.8 0.5 - 1.8 % [facility] 11/11/2024 11:5 6 AM EST 11/11/2024 11:56 AM EST Generic External Data Provider LAB BLOOD ORDERAB LES Final Result Performing Organization Address [facility] Phone Number [facility] [address] [place] [phone] * Haptoglobin (11/11/2024 11:56 AM EST) Haptoglobin 185 63 - 273 mg/dL [facility] 11/11/2024 11:5 6 AM EST 11/11/2024 11:56 AM EST Generic External Data Provider LAB BLOOD ORDERAB LES Final Result Performing Organization Address [facility] Phone Number [facility] [address] [place] [phone] * Protein Creatinine Ratio, Urine (11/11/2024 11:44 AM EST) Only the most recent of2 resultswithin the time period is included. Creatinine, Urine 101.34 mg/dL [facility] Protein, Total, Random Urine 9 <12 mg/dL [facility] Protein/Creati nine Ratio, Ur 0.09 <0.2 [facility] Comment:The spot urine prote in:creatinine ratio may increase to 0.3during normal . 11/11/2024 11:4 4 AM EST 11/11/2024 12:16 PM EST us Generic External Data Provider LAB URINE ORDERAB LES Final Result Performing Organization Address City/[facility]/ZIP Co de Phone Number [facility] [address] [place] [phone] * (ABNORMAL) Urinalysis Complete (11/11/2024 11:44 AM EST) Color Urine Yellow [facility] Appearance Urine Clear [facility] PH 6.5 5.0 - 9.0 [facility] Glucose Urine UA Negative Negative mg/dL [facility] Urine Blood Negative Negative [facility] Specific Adams - Urine 1.015 1.005 - 1.025 [facility] Urine Protein Negative Neg-Trace mg/dL [facility] Urine Ketones Negative Negative mg/dL [facility] Nitrite Urine Negative Negative [facility] Leukocyte Esterase Urine Trace(A) Negative [facility] RBC Urine 0-2 0 - 2 /HPF [facility] Urine WBC 0-5 0 - 5 /HPF [facility] Urine Squamous Epithelial Cell 6-10 0 - 2 /HPF [facility] Urine Bacteria Trace None Seen [facility] Hyaline Casts, Urine 0-2 0 - 2 /LPF [facility] 11/11/2024 11:4 4 AM EST 11/11/2024 12:16 PM EST us Generic External Data Provider LAB URINE ORDERAB LES Final Result [facility] [address] [place] [phone] * Culture, Urine, Routine (11/09/2024 11:30 AM EST) Urine Urine specimen obtained by clean catch procedure / Unknown 11/09/2024 11:30 AM EST 11/09/2024 1:08 PM EST Comment:UACC Narrative [facility] - 11/10/2024 10:44 AM EST Urine Culture No growth. Specimen Source: Urine clean catch [facility] MICROBIOLOGY - GENERAL ORD ERABLES Final Result Performing Organization Address City/[facility]/ZIP Co de Phone Number [facility] [address] [place] [phone] * POCT Urinalysis (11/09/2024 11:14 AM EST) Color, UA Light Yellow Clarity, UA Clear Glucose, UA Negative Bilirubin, UA Negative Ketones, UA Negative Spec Grav, UA 1.000 Blood, UA Negative Negative, None Detected pH, UA 6.5 Protein, UA Negative Urobilinogen, UA 1.0 Leukocytes, UA Negative Negative, Rare, Trace Nitrite, UA Negative Negative, None Detected QC Media Lot # [id number] Lot# Expiration Date Urine 11/09/2024 11:1 4 AM EST [facility] POINT OF CARE TEST ENTER/EDIT ORDERABLES Final Result * POCT Glucose (11/09/2024 9:32 AM EST) Only the most recent of2 resultswithin the time period is included. Glucose Blood, POC 101 60 - 200 mg/dL QC Media Lot # [id number] Lot# Expiration Date Blood Capillary blood specimen / Unknown 11/09/2024 9:32 AM EST Dorijessie Rhodes [employer] POINT OF CARE TEST ENTER/EDIT ORDERABLES Final Result * Hepatitis C Viral RNA, Quantitative, Real-Time PCR (09/06/2024 2:49 PM EST) [facility] Hepatitis C Viral Load <15 NOT DETECTED NOT DETECTED IU/mL [facility] HCV Log PCR <1.18 NOT DETECTED NOT DETECTED Log IU/mL [facility] Comment:For additional infor elmer, please refer tohttp://education.Ailvxing net/faq/MCF16p2(This link is being provided for informational/educational purposes only.)THIS TEST WAS PERFORMED AT:for; to (do)[address] [place] [phone] JOYA MD 09/06/2024 2:49 PM EST 09/07/2024 12:19 PM EST Sheree Strong NP LAB BLOOD ORDERABLES Final Resul t [facility] [address] [place] [phone] * (ABNORMAL) CBC auto differential (09/06/2024 2:49 PM EST) [facility] White Blood Count 5.9 4.8 - 10.8 X10*3/uL [facility] Red Blood Count 4.73 4.20 - 5.50 X10*6/uL [facility] Hemoglobin 11.4(L) 12.0 - 16.0 g/dl [facility] Hematocrit 38.0 37.0 - 47.0 % [facility] Mean Corpuscular Volume 80.3 80.0 - 98.0 fL [facility] Mean Corpuscular Hemoglobin 24.1(L) 27.0 - 33.0 pg [facility] Mean Corpuscular HGB Conc 30.0(L) 31.0 - 35.0 g/dl [facility] Red Cell Distribution Width 15.1 11.0 - 16.0 % [facility] Platelet Count 218 160 - 400 X10*3/uL [facility] Mean Platelet Volume 11.5 9.4 - 12.3 fL [facility] Neutrophils Percent Auto 57.5 45 - 73 % [facility] Imm Gran Pct Auto 0.5(H) 0.0 - 0.4 % [facility] Lymphocytes Percent Auto 27.0 20 - 40 % [facility] Monocytes Percent Auto 8.2 2 - 11 % [facility] Eosinophils Percent Auto 6.5(H) 0 - 4 % [facility] Basophils Percent Auto 0.3 0 - 2 % [facility] NRBC Pct Auto 0.0 0.0 - 0.2 /100WBC [facility] Neutrophils Absolute Auto 3.4 2.0 - 8.3 x10*3/uL [facility] Imm Gran Abs Auto 0.03 0.00 - 0.03 X10*3/uL [facility] Lymphocytes Absolute Auto 1.6 1.2 - 4.9 X10*3/uL [facility] Monocytes Absolute Auto 0.5 0.1 - 1.2 X10*3/uL [facility] Eosinophils Absolute Auto 0.4 0.0 - 0.4 X10*3/uL [facility] Basophils Absolute Auto 0.0 0.0 - 0.2 X10*3/uL [facility] NRBC Abs Auto 0.000 0.0 - 0.012 X10*3/uL [facility] Blood Venous blood specimen / Unknown 09/06/2024 2:49 PM EST 09/06/2024 3:57 PM EST us Sheree Strong INPATIENT CARE MANAGER RN LAB BLOOD ORDERABLES Final Resul t [facility] [address] [place] [phone] * (ABNORMAL) Hepatitis C Antibody with Reflex to HCV, RNA, Quantitative, Real- Time PCR (09/06/2024 2:49 PM EST) Hepatitis C Antibody Reactive( A) Nonreactive [facility] Comment:Presumptive evidence of antibodies to HCV. Blood Venous blood specimen / Unknown 09/06/2024 2:49 PM EST 09/06/2024 4:07 PM EST Sheree Strong NP LAB BLOOD ORDERABLES Final Resul t Performing Organization Address [facility] Co de Phone Number [facility] [address] [place] [phone] [phone] * HIV-1/2 Antigen and Antibodies, Fourth Generation, with Reflexes (09/06/2024 2:49 PM EST) HIV AB/AG Nonreactive Nonreactive [facility] Comment:HIV-1 p24 Ag and/or HIV-1/HIV-2 Ab not detected.A test result that is nonreactive does not exclude thepossibility of exposure to or infection with HIV-1 and/orHIV-2. Nonreactive results in this assay for individualswith prior exposure to HIV-1 and/or HIV-2 may be due toantigen and antibody levels that are below the limit ofdetection of this assay.The [employer] HIV Ag/Ab Combo assay result andsupplemental assay results should be interpreted inconjunction with the patient's clinical presentation,history and other laboratory results. If the results areinconsistent with clinical evidence, additional testing issuggested to confirm the result. Blood Venous blood specimen / Unknown 09/06/2024 2:49 PM EST 09/06/2024 4:07 PM EST us Sheree Strong NP LAB BLOOD ORDERABLES Final Resul t Performing Organization Address [facility]/ZIP Co de Phone Number [facility] [address] [place] [phone] * (ABNORMAL) C-reactive Protein (09/06/2024 2:49 PM EST) C Reactive Protein 1.91(H) < or = 0.50 mg/dL [facility] Blood Venous blood specimen / Unknown 09/06/2024 2:49 PM EST 09/06/2024 4:07 PM EST us Sheree Strong NP LAB BLOOD ORDERABLES Final Resul t [facility] [address] [place] [phone] [phone] * (ABNORMAL) LORI Screen,IFA, with Reflex to Titer and Pattern (09/06/2024 2:49 PM EST) Anti Nuclear Antibody Screen POSITIVE (A) NEGATIVE [facility] Comment:LORI IFA is a first l ine screen for detecting thepresence of up to approximately 150 autoantibodies invarious autoimmune diseases. A positive LORI IFA resultis suggestive of autoimmune disease and reflexes totiter and pattern. Further laboratory testing may beconsidered if clinically indicated.For additional information, please refer tohttp://education.RatePoint/faq/FUO840(This link is being provided for informational/educational purposes only.) LORI Titer 1:80(A) titer [facility] Comment:A low level LORI tite r may be present in pre-clinicalautoimmune diseases and normal individuals. Reference Range <1:40 Negative 1:40-1:80 Low Antibody Level >1:80 Elevated Antibody Level LORI Pattern Nuclear, Speckled (A) [facility] Comment:Speckled pattern is associated with mixed connectivetissue disease (MCTD), systemic lupus erythematosus(SLE), Sjogren's syndrome, dermatomyositis, andsystemic sclerosis/polymyositis overlap.AC-2,4,5,29: SpeckledInternational Consensus on LORI Patterns(https://doi.org/10.1515/qdnu-2183-6800)THIS TEST WAS PERFORMED AT:for; to (do)[address] [place] [phone] JOYA MD LORI TITER 2 (REF LAB) [facility] LORI Pattern 2 [facility] LORI TITER 3 [facility] LORI PATTERN 3 [facility] Blood Venous blood specimen / Unknown 09/06/2024 2:49 PM EST 09/06/2024 4:07 PM EST us Sheree Strong INPATIENT CARE MANAGER RN LAB BLOOD ORDERABLES Final Resul t Performing Organization Address [facility] Co de Phone Number [facility] [address] [place] [phone] * (ABNORMAL) Lipid Panel, Standard (09/06/2024 2:49 PM EST) Triglycerides 78 <150 mg/dL [facility] Comment:Desirable Triglyceri de: less than 150 mg/dLBorderline High Triglyceride 150-199 mg/dLHigh Triglyceride: 200-499 mg/dLVery High Triglyceride: greater than or equal to 5OO mg/dL Cholesterol 96 <200 mg/dL [facility] Comment:Desirable Cholestero l: less than 200 mg/dLBorderline High Cholesterol: 200-239 mg/dLHigh Cholesterol: greater than 239 mg/dL LDL Cholesterol Calculated 41 <100 mg/dL [facility] Comment:Desirable LDL: less than 100 mg/dLNear Optimal/Above Optimal LDL: 110- 129 mg/dLBorderline High LDL: 130-159 mg/dLHigh LDL: 160-189 mg/dLVery High LDL: greater than or equal to 190 mg/dL HDL Cholesterol 40(L) >40 mg/dL [facility] Comment:Desirable HDL: great er than 40 mg/dL Note: This HDL assay may give artificially low results in patients with liver disease. Blood Venous blood specimen / Unknown 09/06/2024 2:49 PM EST 09/06/2024 4:07 PM EST us Sheree Strong NP LAB BLOOD ORDERABLES Final Resul t Performing Organization Address [facility] Co de Phone Number [facility] [address] [place] [phone] * (ABNORMAL) Comprehensive Metabolic Panel (09/06/2024 2:49 PM EST) Sodium 142 135 - 145 mmol/L [facility] Potassium 3.5 3.3 - 5.1 mmol/L [facility] Chloride 108 96 - 108 mmol/L [facility] Carbon Dioxide 27 22 - 29 mmol/L [facility] Anion Gap 11(L) 12 - 20 [facility] Urea Nitrogen (BUN) 11 9 - 16 mg/dL [facility] Creatinine, Serum 0.85 0.5 - 1.4 mg/dL [facility] Estimated Glomerular Filt Rate >60 [facility] Comment:Chronic Kidney Disea se: Estimated GFR < 60 mL/min/[id number] Kidney Disease: Estimated GFR < 15 mL/min/1.73m2 Glucose 95 60 - 115 mg/dL [facility] Calcium 9.7 8.4 - 10.2 mg/dL [facility] Bilirubin, Total 0.3 0.0 - 1.0 mg/dL [facility] Aspartate Amino Transferase 21 5 - 31 U/L [facility] Alanine Aminotransferase 13 0 - 31 U/L [facility] Total Protein 7.5 6.5 - 8.0 g/dL [facility] Albumin Level 3.9 3.5 - 5.0 g/dL [facility] Alkaline Phosphatase 80 39 - 117 U/L [facility] Blood Venous blood specimen / Unknown 09/06/2024 2:49 PM EST 09/06/2024 4:07 PM EST Sheree Strong INPATIENT CARE MANAGER RN LAB BLOOD ORDERABLES Final Resul t [facility] [address] [place] [phone] * POCT HGB A1C (09/06/2024 2:21 PM EST) Hemoglobin A1C 5.8 4.0 - 6.0 % QC Media Lot # [id number] Lot# Expiration Date ,537,805 Blood 09/06/2024 2:21 PM EST Sheree Strong NP POINT OF CARE TEST ENTER/EDIT OR DERABLES Final Result * DIGITAL BILATERAL SCREEN 1 (08/26/2018 3:22 PM EST) Anatomical Region Laterality Modality Breast Bilateral Mammography 08/26/2018 3:22 PM EST Narrative 08/26/2018 3:23 PM EST Refer to the Notes tab for result details [facility] Procedure: DIGITAL BILATERAL SCREEN 1 Procedure Note ProviderMaria Isabel MD - 01/10/2023 Refer to the Notes tab for result details [facility] Procedure: DIGITAL BILATERAL SCREEN 1 Birdie Elaine NP IMG BI PROCEDURES Final Result * HPV mRNA E6/E7 (09/15/2017 10:24 AM EST) HPV mRNA E6/E7 Not Detected NOT DETECTED [facility] Comment: This test was performed using the APTIMA(R) HPV Assay ([employer] This assay detects E6/E7 viral messenger RNA (mRNA) from 14 high-risk HPV types (16,18,31,33,35,39,45,51, 52,56,58,59,66,68). For additional information please refer to: http://education.Ailvxing net/faq/PKB831a5 (This link is being provided for informational/ educational purposes only.) Test Performed by [employer], [employer] [facility], [address] [place] [id number] Cuate Helm M.D., Ph.D., Director of Laboratories , [facility] [id number] Please note: ??Effective 06/30/2016, HPV testing will be performed using [employer]'s APTIMA test which targets mRNA. Detecting mRNA instead of DNA, as in older methods, offers significant improvements in specificity. 09/15/2017 10:2 4 AM EST Birdie Elaine NP HISTORICAL/NON ORDERABLE LABS Fi nal Result [facility] [address] from Last 3 Months or Most Recently Relevant to Health Maintenance Insurance * Guarantor: Estephania Bill Account Type Relation to Patient Date of Phone Billing Address Personal/Family Self 1960 [address] [place] [address] [facility] STANDARD * Guarantor: Estephania Bill Account Type Relation to Patient Date of Phone Billing Address Personal/Family Self 1960 [address] [place] [address] * Guarantor: Estephania Bill Account Type Relation to Patient Date of Phone Billing Address Personal/Family Self 1960 [address] [place] [address] * Guarantor: Estephania Bill Account Type Relation to Patient Date of Phone Billing Address Personal/Family Self 1960 [address] [place] [address] Care Teams Towel Inspector Relationship Specialty Start Date End Date Sheree Strong NP [address] [place] [phone] PCP - General Family Medicine 09/06/24
--- OUTSIDE RECORDS SUMMARY | 2024-11-11 13:46 | XMS_ITS | Encounter Summary ---
Demographics Address [address] [place] [address] Work Phone Email Address Preferred Language en Marital Status Druze Affiliation Unknown Race Other Race Ethnic Group or Author Organization [employer] Address [address] [facility] [address]t [place] [address] Care Team Providers Care Sexual Assault Nurse Name Role Phone SyedSheree anand LISHA Primary Care Provider [phone] Reason for Visit * Reason Onset Date Comments Chart Prep 10/26/2024 Encounter Details Date Type Department Care Team ([facility] st Contact Info) Description 10/26/2024 Telephone [facility] MEDICINE [address] [place], [place] [phone] Zakia Connolly MA Chart Prep Social History Tobacco Use Types Packs/Day Years Used Date Smoking Tobacco: Former Cigarettes Q uit: 1977 Smokeless Tobacco: Never Depression Answer Date Recorded Patient Health Questionnaire-9 Score 17 09/06/2024 Patient Health Questionnaire-9 Score 17 09/06/2024 Last PHQ-9: Questionnaire Data Not on file 1 11/06/2023 Housing Stability Answer Date Recorded What is your housing situation today? I have chelseyjuan briceño 09/06/[address] you li ve. Do you have problems with any of the following? Pests such as bugs, ants, or mice;Lead [place] or Pipes;Inadequate heat 09/06/2024 Food Insecurity Answer [...] PM EDT documented as of this encounter Miscellaneous Notes * Telephone Encounter - Zakia Connolly MA - 10/26/2024 3:23 PM EST Chart Prep Labs: done Images: not done Vaccines due: Covid Due, Tdap Due, PCV20 Due, RSV in Pharmacy Due, and Shingles in pharmacy Due Referrals: Optometry complete and Dentist complete , Radiology pending appointment Screenings: Foot Exam and Retinopathy, Cervical cancer Overdue care gaps: Sbirt documented in this encounter Plan of Treatment Upcoming Encounters Date Type Department Care Team (Late st Contact Info) Description 11/17/2024 10:00 AM EST Office Visit [facility] MEDICINE [address] [place] [address] Name, MD Dante [address] [place] [address] 02/16/2025 2:00 PM EDT Office Visit [facility] OPTOMETRY [address] [place] [address] Martine Benavidez, LEROY [address] [place] [address] documented as of this encounter Visit Diagnoses Not on filedocumented in this encounter Additional Health Concerns Assessment Noted Time PHQ-9 Depression Total Score: 17 024 2:44 PM EST documented as of this encounter Care Teams Sexual Assault Nurse Relationship Specialty Start Date End Date Sheree Strong NP [address] [place] [phone] PCP - General Family Medicine 09/06/24 documented as of this encounter
--- OUTSIDE RECORDS SUMMARY | 2024-11-11 13:46 | XMS_ITS | Encounter Summary ---
Demographics Address [address] [place] [address] Work Phone Email Address Preferred Language en Marital Status Baptist Affiliation Unknown Race Other Race Ethnic Group or Author Organization [employer] Address [address] [facility] [address] [place] [address] Care Team Providers Care Outdoor Studies Director Name Role Phone Sheree Strong LISHA Primary Care Provider Encounter Details Date Type Department Care Team ([facility] st Contact Info) Description 10/26/2024 Telephone [facility] MEDICINE [address] [place], [place] [phone] Cathy Lord, RN Social History Tobacco Use Types Packs/Day Years [...] Pests such as bugs, ants, or mice;Lead Frost or Pipes;Inadequate heat 09/06/2024 Food Insecurity Answer [...] encounter Miscellaneous Notes * Telephone Encounter - Cathy Lord RN - 10/26/2024 12:24 PM EST Tc to pt to do status check post discharge from [facility] for CVA, pt was admitted from 10/19/24-. Pt was transferred to [facility]( short Term Inpatient). No answer, lvm to return call andask to speak to [place] team nurses. documented in this encounter Plan of Treatment Upcoming Encounters Date Type Department Care Team (Late st Contact Info) Description 11/17/2024 10:00 AM EST Office Visit [facility] MEDICINE [address] [place] [address] Name, MD Dante [address] [place] [address] 02/16/2025 2:00 PM EDT Office Visit [facility] OPTOMETRY [address] [place] [address] Pramod, Martine, OD [address] [place] [address] documented as of this encounter Visit Diagnoses Not on filedocumented in this encounter Additional Health Concerns Assessment Noted Time PHQ-9 Depression Total Score: 17 024 2:44 PM EST documented as of this encounter Care Teams Outdoor Studies Director Relationship Specialty Start Date End Date Sheree Strong NP [address] [place] [phone] PCP - General Family Medicine 09/06/24 documented as of this encounter
--- OUTSIDE RECORDS SUMMARY | 2024-11-11 13:46 | XMS_ITS | Encounter Summary ---
Demographics Address [address] [place] [address] Mobile Phone Preferred Language en Marital Status Buddhism Affiliation Unknown Race Other Race Ethnic Group or Author Organization [facility] Address [address] [place] [address] Care Team Providers Care C Developer Name Role Phone Sheree Strong BISHOP Primary Care Provider [phone] Encounter Details Date Type Department Care Team (Late st Contact Info) Description 10/31/2024 Plan of Care Documentation [facility] [address] [place] [address] Social History Tobacco Use Types Packs/Day Years Used Date Smoking Tobacco: Never Assessed Health Literacy Answer Date Recorded How often do you need to hav e someone help you when you read instructions, pamphlets, or other written material from your doctor or pharmacy? Sometimes 10/26/2024 Caregiver: How often do you need to have someone help you when you read instructions, pamphlets, or other written material from your doctor or pharmacy? Not on file 10/26/2024 Transportation Answer Date Recorded Has the lack of transportati on kept you from meetings, work, or from getting things needed for daily living? No Has the lack of transportati on kept you from medical appointments or from getting medications? No 10/25/2024 Social Isolation Answer Date Recorded How often do you feel lonely or isolated from those around you? Sometimes 10/25/2024 Interpersonal Safety Answer Date Record ed Physical Abuse 10/25/2024 Have you ever been verbally abused? Not on file 10/25/2024 Sex and Gender Information Value Date Recorded Sex Assigned at Female 10/25/2024 2:10 PM EST Gender Identity Female 10/25/2024 2:10 PM EST Sexual Orientation Straight 10/25/2024 2: 10 PM EST Job Start Date Occupation Industry Not on file Not on file Not on file documented as of this encounter Progress Notes * Marilou Tolbert, OT - 10/31/2024 11:27 AM EST Physical Medicine and Rehabilitation Team Conference Interdisciplinary Team Meeting Patient Name: Estephania Bill Date of : 1960 Sex: Female Payor Info: Pay[place] / Plan[place] / Product Type: *No Product type* / Admitting Diagnosis: CVA (cerebral vascular accident) ([facility]) [I63.9] Admit Date/Time: 10/25/2024 1:27 PM Primary Rehab (Etiologic) Diagnosis: Patient Active Problem List Diagnosis Stroke (CMS/HCC) Diabetes (CMS/HCC) CVA (cerebral vascular accident) ([facility]) Noncompliance HTN (hypertension) TIA (transient ischemic attack) Team Discussion UPDATES: Physician: 63-year-old female past medical history significant for coronary artery disease status post CABG in 2019 on aspirin and Plavix, HFrEF EF 30-35% which improved to 60%, bilateral renal stenosis, hypertension, hyperlipidemia, COPD, anxiety, who presented to [facility]'s emergency department with intermittent left-sided chest pain radiating down to left upper extremity associated with nausea, vomiting, shortness of breath. While she was in the emergency department she had some difficulty opening her left eye, left-sided facial numbness and tingling, weakness to left upper extremity and developed a frontal headache. NIHSS 5 stroke alert activated and neurology consulted and recommended administering TNK ( 10/19/ at 1815) she was then admitted to the NCCU. CT head was negative and CTA H/N showed L vert origin narrowing vs occlusion). Neurology recommended starting statin. Injection to R shoulder Fri, pain stable, hypotensive since admission. RN: Resp clear, 7 BM after lactulose/MOM, continent. Lidocaine RUE. Blood sugars good. OT: L hand weakness, poor endurance, impaired balance. Hypotensive last week. Dizziness has vertigoat baseline. Son would assist. 2 weeks Mod I PT: 2 weeks Mod I. Steadying A [employer]: Min-Mod A memory, attention,. Problem solving. 2 week goals CM: Pt lives alone with her small dog, in a first floor apartment, threshold step to enter building. Dog is currently being cared for by her partner Luisito. Pt was independent with ADLS. Pt states her sister would assist with ADLS and IADLS on hard days as needed. Pt is on disability, receives SSI. Pt ambulated with a cane prior. Pt does not drive, will utilize PT-1 or family will bring to appointments. Sister assists with groceries, laundry and cooking as needed. Pt was managing her medications prior, pt states she was taking so many medications prior it was difficult to manage. Pt had an appointment to meet with Ezequiel BENTON to assist with a pill box but missed the appointment. Pt states she applied for the MAINTENANCE SUPERINTENDENT program with [employer], meeting was scheduled for tomorrow. Pt has three adultsons, 2 are local but work chief radiology. Pts sister is primary support but also works chief radiology. Pt states her partner lives in [place] and will visit 1- 2x/week. HCP on file. Pt reports a history of anxiety. Expected Discharge Date: 11/08/2024 Risk Adjusted Scores: OT Current: 30 OT Goal: 40 (10) PT Current: 37 PT Goal: 77 (40) Follow-up Services: Outpatient physical therapy and speech therapy Other TBD Equipment Needed: shower chair Occupational Therapy Assessment Overall Cognitive Status Precautions Precautions Medical Precautions: Fall Risk Safety Interventions: Call bryson within reach RUE Weight Bearing Status: Full LUE Weight Bearing Status: Full RLE Weight Bearing Status: Full LLE Weight Bearing Status: Full ADL Assessment Eating Assistance Needed: Independent CARE Score - Eatin Oral Hygiene Assistance Needed: Set-up / clean-up CARE Score - Oral Hygiene: 5 Toileting Hygiene Assistance Needed: Physical assistance Physical Assistance Level: 25% or less Comment: partial A for more than steadying CARE Score - Toileting Hygiene: 3 Shower/Bathe Self Assistance Needed: Incidental touching Physical Assistance Level: No physical assistance Comment: steadying in stand CARE Score - Shower/Bathe Self: 4 Upper Body Dressing Assistance Needed: Supervision CARE Score - Upper Body Dressin Lower Body Dressing Assistance Needed: Incidental touching Comment: steadying CARE Score - Lower Body Dressin Putting On/Taking Off Footwear Assistance Needed: Supervision CARE Score - Putting On/Taking Off Footwear: 4 Functional Transfers OT Assessment Results: OT Assessment Results: Decreased ADL status, Decreased upper extremity strength, Decreasedendurance, Decreased fine motor control, Decreased functional mobility, Decreased IADLs (imapired balance.) Evaluation/Treatment Tolerance: Evaluation/Treatment Tolerance: Patient tolerated treatment well, Patient limited by fatigue Comments: Plan Treatment/Interventions: Treatment Interventions: ADL retraining, Functional transfer training, UE strengthening/ROM, Endurance training, Equipment evaluation/education, Neuromuscular reeducation, Fine motor coordination activities OT Plan: OT Plan: Skilled OT Discharge Recommendations: Equipment Recommended: Barriers to Discharge: Physical Therapy Assessment Bed Mobility Roll Left and Right Assistance Needed: Supervision Physical Assistance Level: No physical assistance CARE Score - Roll Left and Right: 4 Sit to Lying Assistance Needed: Supervision Physical Assistance Level: No physical assistance CARE Score - Sit to Lyin Lying to Sitting on Side of Bed Assistance Needed: Supervision Physical Assistance Level: No physical assistance CARE Score - Lying to Sitting on Side of Bed: 4 Transfers Sit to Stand Assistance Needed: Supervision Physical Assistance Level: No physical assistance CARE Score - Sit to Stand: 4 Chair/Gfa-ob-Majau Transfer Assistance Needed: Incidental touching Physical Assistance Level: No physical assistance Comment: RW CARE Score - Chair/Snm-pf-Sjhsy Transfer: 4 Car Transfer Assistance Needed: Incidental touching Physical Assistance Level: No physical assistance Reason if not Attempted: Environmental limitations CARE Score - Car Transfer: 4 Picking Up Object Assistance Needed: Incidental touching Physical Assistance Level: No physical assistance CARE Score - Picking Up Object: 4 Wheelchair Wheel 50 Feet with Two Turns Assistance Needed: Supervision Physical Assistance Level: No physical assistance CARE Score - Wheel 50 Feet with Two Turns: 4 Type of Wheelchair/Scooter: Manual Wheel 150 Feet Assistance Needed: Supervision Physical Assistance Level: No physical assistance CARE Score - Wheel 150 Feet: 4 Type of Wheelchair/Scooter: Manual Ambulation Walk 10 Feet Assistance Needed: Incidental touching Physical Assistance Level: No physical assistance Comment: RW CARE Score - Walk 10 Feet: 4 Walk 50 Feet with Two Turns Assistance Needed: Incidental touching Physical Assistance Level: No physical assistance Reason if not Attempted: Safety concerns CARE Score - Walk 50 Feet with Two Turns: 4 Walk 150 Feet Assistance Needed: Incidental touching Physical Assistance Level: No physical assistance Reason if not Attempted: Safety concerns CARE Score - Walk 150 Feet: 4 Walking 10 Feet on Uneven Surfaces Assistance Needed: Incidental touching Physical Assistance Level: No physical assistance Comment: RW CARE Score - Walking 10 Feet on Uneven Surfaces: 4 Stairs/Curb step 1 Step (Curb) Assistance Needed: Incidental touching Physical Assistance Level: No physical assistance Comment: Elia handils CARE Score - 1 Step (Curb): 4 4 Steps Assistance Needed: Incidental touching Physical Assistance Level: No physical assistance Reason if not Attempted: Safety concerns CARE Score - 4 Steps: 4 12 Steps Assistance Needed: Incidental touching Physical Assistance Level: No physical assistance Reason if not Attempted: Safety concerns CARE Score - 12 Steps: 4 Precautions Precautions Medical Precautions: Fall Risk Safety Interventions: Call bryson within reach RUE Weight Bearing Status: Full LUE Weight Bearing Status: Full RLE Weight Bearing Status: Full LLE Weight Bearing Status: Full PT Assessment Results: Evaluation/Treatment Tolerance: Evaluation/Treatment Tolerance: Patient limited by fatigue Comments: Comments: Pt with poor tolerance to session due to dizziness and pain. Declining remaining therapy session. Will continue to benefit from skilled physical therapy when able. Plan Treatment/Interventions: Treatment/Interventions: Functional transfer training, LE strengthening/ROM, Endurance training, Bed mobility, Equipment eval/education, Patient/family training, Gait training, Continued evaluation, Balance training PT Plan: PT Plan: Skilled PT Discharge Recommendations: PT Discharge Recommendations: (TBD) Equipment Recommended: Equipment Recommended: TBD Barriers to Discharge: Nurse's Assessment Fall Risk Assessment Last Known Fall: Within the last year Mobility: Dizziness/generalized weakness Toileting Needs: No needs Mental Status/LOC/Awareness: Awake, alert, and oriented to date, place, and person Communication/Sensory: No deficits Behavior: Appropriate behavior Medications: Cardiovascular or central nervous system meds Volume/Electrolyte Status: No problems Destini Merrill Fall Risk Total: 6 Skin Assessment Sensory Perceptions: No impairment Moisture: Rarely moist Activity: Walks occasionally Mobility: Slightly limited Nutrition: Probably inadequate Friction and Shear: Potential problem José Luis Scale Score: 18 Pain Assessment Pain Assessment: No/denies pain Pain Score: 0 - No pain Pain Type: Acute pain Pain Location: Head Pain Orientation: Right, Anterior Pain Descriptors: Aching Pain Frequency: Constant/continuous Pain Onset: Ongoing Clinical Progression: Not changed Effect of Pain on Daily Activities: other (comment) (na) Patient's Pain Goal: No pain Pain Interventions: Medication (See MAR), Repositioned Activities/Procedures Causing Pain: Other (Comment) Bowel Management Bowel Program/Regime: Bowel Continence Status: Continent movement Last BM Date: 10/29/24 Bladder Management Bladder Scan Protocol: Bladder Continence Status: Continent void Toileting Speech Language Pathologist's Assessment Swallow Diet Recommendations: Regular/thin Diet Solids Recommendation: IDDSI Level 7 Regular Diet Liquids Recommendation: Thin liquids Cognition Memory: Medication schedule and review during AM med pass with RN: Pt able to indp recall x3 names,x3 purposes and x2 dosages of meds out of 16, increasing accuracy with min to mod verbal cues. Completed medication log with this adjusto writer operator. Explained rationale for use as external memory strategy. Discussed various external memory strategies. Pt receptive to use of phone calendar, as she reports often forgetting doctor appointments. Plan to target in future sessions. Problem Solving: Informal problem solving probing task: Pt presented with word problems related to money, time, med management auditorily: 20% accuracy indp. Goals updated. Attention/Concentration: Understand stories you hear CT julian level 2: 72% accuracy indp, increasing to 100% given min to mod verbal cues. Level 3: 56% accuracy given multiple choice cues. Other Cognitive Skills Activity: Pt participated in the CLQT, see results below Speech Speech: Pt was introduced to light contact techinque for fluency. Pt was able to read phrases/sentences contain /b/ w/ 70% accuracy indep. and 100% given mod verbal cues for use of strategies. Other Speech Activity: Pt unable to recall fluency techniques from previous session. Reviewed 'easyonset' as fluency strategy and provided Pt with educational handouts for practice/use during conversation. Pt tasked with oral readings targeting phrases with multisyllabic words: 80% accuracy indp, 100% with verbal cues. Language Verbal Expression: Pt tasked with generating members of categories given target letter: 83% accuracy indp, increasing to 100% given min verbal cues. Introduced 'description' as word finding strategy.Pt verbalized understanding. [employer] Assessment Results: Cognitive impairments Prognosis: Good Barriers to Discharge: Evaluation/Treatment Tolerance: Patient tolerated treatment well Plan Treatment/Interventions: Cognitive linguistic functioning [employer] Plan: Skilled [employer] Discharge Recommendations: (TBD) Diet Recommendations: Regular/thin Barriers to Discharge: [employer] Operations Supervisor's Assessment Adult diet [facility]; Diabetic; 75 gm carb/Meal Physician Attestation: I, Juliann Man DO, have led the team conference and agree with the results, findings, and decisions made by the interdisciplinary team. documented in this encounter Plan of Treatment Upcoming Encounters Date Type Department Care Team (Late st Contact Info) Description 11/16/2024 2:30 PM EST Evaluation [facility] [address] [phone] Lore Cortes, PT 11/23/2024 2:30 PM EST Treatment [address] [phone] Lore Cortes, PT 11/28/2024 12:45 PM EST Treatment [address] [phone] Deysi Grijalva, PT 11/30/2024 10:30 AM EST Evaluation [facility] [address] [phone] Alea Trejo, [employer] 12/07/2024 10:45 AM EST Treatment [facility] [address] [phone] Alea Trejo, [employer] 12/14/2024 10:45 AM EST Treatment [facility] [address] [address] Alea Trejo, [employer] documented as of this encounter Visit Diagnoses Not on filedocumented in this encounter Additional Health Concerns Assessment Noted Time PHQ-9 Depression Total Score: 1 10/25/19 2:42 PM EST documented as of this encounter Care Teams C Developer Relationship Specialty Start Date End Date Sheree Strong FNP [address] [place] [id number] PCP - General Nurse Practitioner 10/24/24 documented as of this encounter
--- OUTSIDE RECORDS SUMMARY | 2024-11-11 13:46 | XMS_ITS | Encounter Summary ---
Demographics Address [address] [place] [address] Mobile Phone Preferred Language en Marital Status Nondenominational Affiliation Unknown Race Other Race Ethnic Group or Author Organization [employer] Address [address] [place] [address] Care Team Providers Care Assistant Professor Of Biochemistry Name Role Phone Sheree Strong BISHOP Primary Care Provider [phone] Encounter Details Date Type Department Care Team (Late st Contact Info) Description 11/07/2024 Plan of Care Documentation [facility] Inpatient Rehab [address] [place] [address] Social History Tobacco Use Types Packs/Day Years Used Date Smoking Tobacco: Never Assessed Health Literacy Answer Date Recorded How often do you need to hav e someone help you when you read instructions, pamphlets, or other written material from your doctor or pharmacy? Rarely 11/07/2024 Caregiver: How often do you need to have someone help you when you read instructions, pamphlets, or other written material from your doctor or pharmacy? Not on file 11/07/2024 Transportation Answer Date Recorded Has the lack of transportati on kept you from meetings, work, or from getting things needed for daily living? No Has the lack of transportati on kept you from medical appointments or from getting medications? No 10/25/2024 Social Isolation Answer Date Recorded How often do you feel lonely or isolated from those around you? Sometimes 11/07/2024 Interpersonal Safety Answer Date Record ed Physical [...] Progress Notes * Marilou Tolbert, OT - 11/07/2024 11:25 AM EST Physical Medicine and Rehabilitation Team Conference Interdisciplinary Team Meeting Patient Name: Estephania Bill Date of : 1960 Sex: Female Payor Info: Pay[place] / Plan[place] / Product Type: *No Product type* / Admitting Diagnosis: CVA (cerebral vascular accident) ([facility]) [I63.9] Admit Date/Time: 10/25/2024 1:27 PM Primary Rehab (Etiologic) Diagnosis: Patient Active Problem List Diagnosis Stroke ([facility]) Diabetes (CMS/HCC) CVA (cerebral vascular accident) ([facility]) Noncompliance HTN (hypertension) TIA (transient ischemic attack) Team Discussion UPDATES: Physician: 63-year-old female past medical history significant for coronary artery disease status post CABG in 2019 on aspirin and Plavix, HFrEF EF 30-35% which improved to 60%, bilateral renal stenosis, hypertension, hyperlipidemia, COPD, anxiety, who presented to [facility] emergency department with intermittent left-sided chest pain [...] narrowing vs occlusion). Neurology recommended starting statin. 10/31- Injection to R shoulder Fri, pain stable, hypotensive since admission. 11/07- Increased L sided weakness, had RR/SA all came back negative. EEG ordered post RR RN: Stopped POC this AM. Sleeping well at night. R shoulder pain. Lidocaine patch. Called for EEG this AM. OT: IND ADLs. Will update scores prior to DC. PT: IND PLAYGROUND DIRECTOR: IND SW: No concerns CM: Pt lives alone with her small [...] Pt had an appointment to meet with [facility] to assist with a pill box but missed the appointment. Pt states she applied for the SERVICE PROMOTER SALESPERSON program with [employer], meeting was scheduled for tomorrow. Pt has three adultsons, 2 are local but work lab nurse. Pts sister is primary support but also works lab nurse. Pt states her partner lives in [place] and will visit 1- 2x/week. HCP on file. Pt reports a history of anxiety. Expected Discharge Date: 11/08/2024 Risk Adjusted Scores: OT Current: 30 OT Goal: 40 (10) PT Current: 90 PT Goal: 77 Follow-up Services: Day Rehab physical therapy, occupational therapy, and speech therapy Other TBD Equipment Needed: [...] Putting On/Taking Off Footwear: 4 Functional Transfers Toilet Transfer Assistance Needed: Independent CARE Score - Toilet Transfer: 6 OT Assessment Results: OT Assessment Results: Decreased ADL status, Decreased upper extremity strength, Decreasedendurance, Decreased fine motor control, Decreased functional mobility, Decreased IADLs Evaluation/Treatment Tolerance: Evaluation/Treatment Tolerance: Patient tolerated treatment well Comments: Plan Treatment/Interventions: Treatment Interventions: ADL retraining, Functional transfer training, UE strengthening/ROM, Endurance training, Equipment evaluation/education, Neuromuscular reeducation, Fine motor coordination activities OT Plan: OT Plan: Skilled OT Discharge Recommendations: Equipment Recommended: Barriers to Discharge: Physical Therapy Assessment Bed Mobility Roll Left and Right Assistance Needed: Independent Physical Assistance Level: No physical assistance CARE Score - Roll Left and Right: 6 Sit to Lying Assistance Needed: Independent Physical Assistance Level: No physical assistance CARE Score - Sit to Lyin Lying to Sitting on Side of Bed Assistance Needed: Independent Physical Assistance Level: No physical assistance CARE Score - Lying to Sitting on Side of Bed: 6 Transfers Sit to Stand Assistance Needed: Independent Physical Assistance Level: No physical assistance CARE Score - Sit to Stand: 6 Chair/Zbx-hx-Yrfue Transfer Assistance Needed: Independent Physical Assistance Level: No physical assistance Comment: RW CARE Score - Chair/Gvo-rp-Jrajj Transfer: 6 Car Transfer Assistance Needed: Independent Physical Assistance Level: No physical assistance Reason if not Attempted: Environmental limitations CARE Score - Car Transfer: 6 Picking Up Object Assistance Needed: Independent Physical Assistance Level: No physical assistance CARE Score - Picking Up Object: 6 Wheelchair Wheel 50 Feet with Two Turns Assistance Needed: Supervision Physical Assistance Level: No physical assistance CARE Score - Wheel 50 Feet with Two Turns: 4 Type of Wheelchair/Scooter: Manual Wheel 150 Feet Assistance Needed: Supervision Physical Assistance Level: No physical assistance CARE Score - Wheel 150 Feet: 4 Type of Wheelchair/Scooter: Manual Ambulation Walk 10 Feet Assistance Needed: Independent Physical Assistance Level: No physical assistance Comment: RW CARE Score - Walk 10 Feet: 6 Walk 50 Feet with Two Turns Assistance Needed: Independent Physical Assistance Level: No physical assistance Reason if not Attempted: Safety concerns CARE Score - Walk 50 Feet with Two Turns: 6 Walk 150 Feet Assistance Needed: Independent Physical Assistance Level: No physical assistance Reason if not Attempted: Safety concerns CARE Score - Walk 150 Feet: 6 Walking 10 Feet on Uneven Surfaces Assistance Needed: Independent Physical Assistance Level: No physical assistance Comment: RW CARE Score - Walking 10 Feet on Uneven Surfaces: 6 Stairs/Curb step 1 Step (Curb) Assistance Needed: Independent Physical Assistance Level: No physical assistance Comment: Elia handrails CARE Score - 1 Step (Curb): 6 4 Steps Assistance Needed: Independent Physical Assistance Level: No physical assistance Reason if not Attempted: Safety concerns CARE Score - 4 Steps: 6 12 Steps Assistance Needed: Independent Physical Assistance Level: No physical assistance Reason if not Attempted: Safety concerns CARE Score - 12 Steps: 6 Precautions Precautions Medical Precautions: Fall Risk Safety Interventions: Call bryson within reach RUE Weight Bearing Status: Full LUE Weight Bearing Status: Full RLE Weight Bearing Status: Full LLE Weight Bearing Status: Full PT Assessment Results: Evaluation/Treatment Tolerance: Evaluation/Treatment Tolerance: Patient tolerated treatment well Comments: Comments: Pt with good tolerance to treatment session. Pt with unchanged LE strength and functional mobility status at this point in time. continue with established plan of care. Will continue to benefit from skilled physical therapy to decrease limitations. Plan Treatment/Interventions: Treatment/Interventions: Functional transfer training, LE strengthening/ROM, Endurance training, Bed mobility, Equipment eval/education, Patient/family training, Gait training, Continued evaluation, Balance training PT Plan: PT Plan: Skilled PT Discharge Recommendations: PT Discharge Recommendations: (TBD) Equipment Recommended: Equipment Recommended: TBD Barriers to Discharge: Nurse's Assessment Fall Risk Assessment Last Known Fall: No falls Mobility: Immobilized/requires assist of one person Toileting Needs: No needs Mental Status/LOC/Awareness: Awake, alert, and oriented to date, place, and person Communication/Sensory: No deficits Behavior: Appropriate behavior Medications: Cardiovascular and central nervous system meds Volume/Electrolyte Status: No problems Destini Merrill Fall Risk Total: 7 Skin Assessment Sensory Perceptions: Slightly limited Moisture: Rarely moist Activity: Chairfast Mobility: Slightly limited Nutrition: Probably inadequate Friction and Shear: Potential problem José Luis Scale Score: 16 Pain Assessment Pain Assessment: No/denies pain Pain Score: 1 Pain Type: Acute pain Pain Location: Shoulder Pain Orientation: Right Pain Descriptors: Aching Pain Frequency: Constant/continuous Pain Onset: Ongoing Clinical Progression: Gradually improving Effect of Pain on Daily Activities: other (comment) (na) Patient's Pain Goal: No pain Pain Interventions: Medication (See MAR) Activities/Procedures Causing Pain: Other (Comment) Bowel Management Bowel Program/Regime: Bowel Continence Status: Continent movement Last BM Date: 11/05/24 Bladder Management Bladder Scan Protocol: Bladder Continence Status: Continent void Toileting Speech Language Pathologist's Assessment Swallow Diet Recommendations: Regular/thin Diet Solids Recommendation: IDDSI Level 7 Regular Diet Liquids Recommendation: Thin liquids Cognition Memory: Pt reported that she had a lot of appts to book after d/c. Pt was tasked w/ recalling the list of providers and created a list given mod A for organization and recall. Problem Solving: Pt was able to answer Counting Money on CT julian w/ 100% accuracy and money math word problems w/ 50% accuracy indep. and 70% given min A for calculations and 100% given visual of calculations Attention/Concentration: Pt generated the steps she had to take to book the appts given min A. Pt reported that she feared she would forget about the appts and booking the transporation. Pt was encouraged to use external memory aids. Pt reported that she uses a written calendar but feared that would not be a good reminder. Pt was receptive to use of reminder julian on her phone. Pt was given max A for use of reminder julian to create a reminder to call to make the appts. Pt was tasked w/ putting in areminder to call the transporation for HW. Other Cognitive Skills Activity: Pt engaged in a conversation about if she has noticed any cognitive changes since her hospitalization yesterday. Pt reported that she did not notice any significant changes. Cognitive Skills Comments: Increased difficulty with time related word problems. Speech Speech: Pt reviewed speech strategies at the start of the task. Pt was able to read x3 paragraphs and only x2 stuttering behaviors were noted (repetition of sound and block). Pt reported that she feels like her speech is better than before. Other Speech Activity: Pt unable to recall fluency techniques from previous session. Reviewed 'easyonset' as fluency strategy and provided Pt with educational handouts for practice/use during conversation. Pt tasked with oral readings targeting phrases with multisyllabic words: 80% accuracy indp, 100% with verbal cues. Language Verbal Expression: Pt was able to generate synoyms/opposites for target word w/ 50% accuracy indep.and 70% given mod A for semantic cues and use of strategies. Pt had increased accuracy for synoyms compared to opposites. Pt engaged in a conversation about using synoyms/opposites as a word finding strategy. PLAYGROUND DIRECTOR Assessment Results: Cognitive impairments Prognosis: Good Barriers to Discharge: Evaluation/Treatment Tolerance: Patient tolerated treatment well Plan Treatment/Interventions: Cognitive linguistic functioning PLAYGROUND DIRECTOR Plan: Skilled PLAYGROUND DIRECTOR Discharge Recommendations: Outpatient PLAYGROUND DIRECTOR Diet Recommendations: Regular/thin Barriers to Discharge: Aircraft Air Conditioning Mechanic's Assessment Adult diet [facility]; Diabetic, Cardiac; 90 gm carb/Meal; Sodium 2 gmRestriction Assessment Diet Experience Previous Diet / Nutrition Education / Counseling: Pt stating she was consuming 2 meals per day prior to admission. Reports recent decrease in appetite and PO intake for ~ 2 weeks prior to admit. Denies closely following therapeutic diet, but does not add salt to foods or when cooking. No noted foodallergies or issues with chewing/swallowing. Appetite SERVICE LINE COORDINATOR: Fair Intake SERVICE LINE COORDINATOR: Decreased Nutrition Diagnosis Status: New Diagnosis: Inadequate Oral Intake Etiology: Changes in taste and appetite or preference Symptoms: pt report of poor appetite/intake for ~ 2 weeks prior to admission Nutrition Interventions: Diet Order, Medical Food Supplement, Vitamin/Mineral Supplement Monitoring/Evaluation: Fluid/Beverage Intake, Food Intake, Medical Food Supp/Oral Nutrition Supp, Weight, Diet Order Physician Attestation: Juliann Dubois DO, have led the team conference and agree with the results, findings, and decisions made by the interdisciplinary team. documented in this encounter Plan of Treatment Upcoming Encounters Date Type Department Care Team (Late st Contact Info) Description 11/16/2024 2:30 PM EST Evaluation [address] [phone] Lore Cortes, PT 11/23/2024 2:30 PM EST Treatment [address] [phone] Lore Cortes, PT 11/28/2024 12:45 PM EST Treatment [address] [phone] Deysi Grijalva, PT 11/30/2024 10:30 AM EST Evaluation [facility] Speech Therapy [address] [place] [phone] Alea Trejo, PLAYGROUND DIRECTOR 12/07/2024 10:45 AM EST Treatment [facility] Speech Therapy [address] [phone] Alea Trejo, PLAYGROUND DIRECTOR 12/14/2024 10:45 AM EST Treatment [facility] Speech [facility] [address] [phone] Alea Trejo, PLAYGROUND DIRECTOR documented as of this encounter Visit Diagnoses Not on filedocumented in this encounter Additional Health Concerns Assessment Noted Time PHQ-9 Depression Total Score: 1 11/07/19 4:11 PM EST documented as of this encounter Care Teams Assistant Professor Of Biochemistry Relationship Specialty Start Date End Date Sheree Strong FNP [address] [place] [address] PCP - General Nurse Practitioner 10/24/24 documented as of this encounter
--- OUTSIDE RECORDS SUMMARY | 2024-11-11 13:46 | XMS_ITS | Encounter Summary ---
Demographics Address [address] [place] [address] Work Phone Email Address Preferred Language en Marital Status Rastafari Affiliation Unknown Race Other Race Ethnic Group or Author Organization [employer] Address [address] [place] [address] Care Team Providers Care Immigration Case Worker Name Role Phone Sheree Strong LISHA Primary Care Provider [phone] Encounter Details Date Type Department Care Team (Latest Contact Info) Description 10/31/2024 Travel Social History Tobacco Use Types Packs/Day Years [...] Pests such as bugs, ants, or mice;Lead [place];Inadequate heat 09/06/2024 Food Insecurity Answer [...] Description 11/17/2024 10:00 AM EST Office Visit [facility] MEDICINE [address] [place] [address] Name, MD Dante [address] [place] [address] 02/16/2025 2:00 PM EDT Office Visit [facility] OPTOMETRY [address] [place] [address] Pramod, Martine, OD [address] [place] [address] documented as of this encounter Visit Diagnoses Not on filedocumented in this encounter Additional Health Concerns Assessment Noted Time PHQ-9 Depression Total Score: 17 024 2:44 PM EST documented as of this encounter Care Teams Immigration Case Worker Relationship Specialty Start Date End Date Sheree Strong NP [address] [place] [address] PCP - General Family Medicine 09/06/24 documented as of this encounter
--- OUTSIDE RECORDS SUMMARY | 2024-11-11 13:46 | XMS_ITS | Encounter Summary ---
Demographics Address [address] [place] [address] Work Phone Email Address Preferred Language en Marital Status Sabianist Affiliation Unknown Race Other Race Ethnic Group or Author Organization [employer] Address [address] [facility] [address] [place] [address] Care Team Providers Care Ranch Manager Name Role Phone Sheree Strong NP Primary Care Provider [phone] Reason for Visit * Reason Comments Transition Of Care (Tcm) HDF scheduled Encounter Details Date Type Department Care Team ([facility] st Contact Info) Description 11/01/2024 Patient Outreach [facility] [address] [place] [address] Sheree Strong NP [address] [place] [address] Transition Of Care (Tcm) (HDF scheduled) Social History Tobacco Use Types Packs/Day Years [...] Pests such as bugs, ants, or mice;Lead [place] or Pipes;Inadequate heat 09/06/2024 Food Insecurity Answer [...] as of this encounter Miscellaneous Notes * Significant Event - Yesi Luna - 11/01/2024 9:11 AM EST 11/01/24 0910 Hospital Discharges and Admission for [facility] Type of Visit Hospital Admission Date of Admission/Visit 10/25/24 Date of Discharge 11/08/24 Facility [facility] Rehab Diagnosis Stroke Follow-Up Actions Follow-Up Needed Provider appointment Follow-Up Outcome Spoke to Caregiver Initial Contact Date 11/01/24 Received incoming call from the [facility] Line. [phone] Patient has been scheduled for an HDF appointment on 11/17/2024 at 10:[address] Cintia QUIJANO requested discharge summaries to be faxed to the Care Management Department at [phone]. CCwill follow up on discharge summary following patient's discharge. documented in this encounter Plan of Treatment Upcoming Encounters Date Type Department Care Team (Late st Contact Info) Description 11/17/2024 10:00 AM EST Office Visit [facility] [address] [place] [address] Name, MD Dante [address] [place] [address] 02/16/2025 2:00 PM EDT Office Visit [facility] OPTOMETRY [address] [place] [address] Martine Benavidez, LEROY [address] [place] [address] documented as of this encounter Visit Diagnoses Not on filedocumented in this encounter Additional Health Concerns Assessment Noted Time PHQ-9 Depression Total Score: 17 024 2:44 PM EST documented as of this encounter Care Teams Ranch Manager Relationship Specialty Start Date End Date Sheree Strong NP [address] [place] [address] PCP - General Family Medicine 09/06/24 documented as of this encounter
--- OUTSIDE RECORDS SUMMARY | 2024-11-11 13:46 | XMS_ITS | Encounter Summary ---
Author Organization [facility] [facility] Address [address] [place] [address] Phone Care Team Providers Care Natural Resource Technician Name Role Phone Kenny Kruse Primary Care Provider Encounter Details Date Type Department Care Team (Late st Contact Info) Description 12/05/2019 Hospital/ED/SNF/HH Visit [facility] [address] [place] [address] Provider, MD Maria Isabel [address] [place] [address] Social History Tobacco Use Types Packs/Day Years Used Date Smoking Tobacco: Never Assessed Sex and Gender Information Value Date Recorded Sex Assigned at Not on file Gender Identity Not on file Sexual Orientation Not on file documented as of this encounter Plan of Treatment Not on file documented as of this encounter Visit Diagnoses Not on filedocumented in this encounter Care Teams Natural Resource Technician Relationship Specialty Start Date End Date Kenny Kruse [address] [place] [address] PCP - General Family Medicine 08/20/23 documented as of this encounter
--- OUTSIDE RECORDS SUMMARY | 2024-11-11 13:46 | XMS_ITS | Clinical Summary ---
Author Organization [facility] Address [address] [place] [id number] Phone Care Team Providers Care Vacuum Filter Operator Name Role Phone Kenny Kruse Primary Care Provider [phone] Allergies Active Allergy Reactions Criticality Noted Date Comments Iodinated Contrast Media Low 09/03/2022 Other reaction(s): vomit, dizziness, bm incontinence. No anaphylaxis. Medications Medication Sig Dispensed Refills Start Date End Date Status albuterol (2.5 MG/3ML) 0.083% nebulizer solution INHALE 3 ML EVERY 8 HOURS NEEDED 30 06/10/2023 Active amLODIPine (NORVASC) 5 MG tablet Take 5 mg by mouth 1 (one) time each day 08/11/2023 Active Aspirin Low Dose 81 MG EC tablet TAKE 1 TABLET BY MOUTH EVERY DAY--NOT COVERED 07/31/2023 Active carvedilol (COREG) 25 MG tablet TAKE 1 TABLET BY MOUTH EVERY DAY IN THE MORNING AND IN THE EVENING WITH MEALS 07/29/2023 Active clopidogrel (PLAVIX) 75 MG tablet Take 75 mg by mouth 1 (one) time each day 07/29/2023 Active Jardiance 10 MG tablet Take 1 tablet by mouth 1 (one) time each day 08/11/2023 Active famotidine (PEPCID) 20 MG tablet TAKE 1 TABLET BY MOUTH EVERY DAY AT BEDTIME NEEDED FOR 90 DAYS 07/31/2023 Active ferrous sulfate 325 (65 Fe) MG tablet TAKE 1 TABLET BY MOUTH EVERY DAY FOR 30 DAYS (NOT COVERED) 07/31/2023 Active folic acid (FOLVITE) 1 MG tablet Take 1,000 mcg by mouth 1 (one) time each day 07/31/2023 Active furosemide (LASIX) 20 MG tablet TAKE 1 TABLET (20 MG TOTAL) BY MOUTH ONE TIME EACH DAY 07/27/2023 Active gabapentin (NEURONTIN) 800 MG tablet Take 800 mg by mouth in the morning and 800 mg at noon and 800 mg in the evening. 07/29/2023 Active Mavyret 100-40 MG tablet TAKE THREE TABLETS BY MOUTH ONCE DAILY 08/05/2023 Active hydroxychloroquine (PLAQUENIL) 200 MG tablet Take 200 mg by mouth 1 (one) time each day 08/03/2023 Active meclizine (ANTIVERT) 25 MG tablet TAKE 1 TABLET NEEDED FOR DIZZINESS ORALLY ONCE A DAY 30 DAYS ORALLY EVERY 12 HRS 15 DAYS 07/29/2023 Active meloxicam (MOBIC) 15 MG tablet TAKE 1 TABLET BY MOUTH EVERY DAY NEEDED FOR PAIN ONCE A DAY FOR 15 DAYS 08/14/2023 Active predniSONE (DELTASONE) 5 MG tablet Take 5 mg by mouth 1 (one) time each day with food 08/13/2023 Active Entresto 97-103 MG per tablet TAKE 1 TABLET BY MOUTH IN THE MORNING AND BEFORE BEDTIME 07/30/2023 Active spironolactone (ALDACTONE) 25 MG tablet TAKE 1 TABLET BY MOUTH 1 TIME EACH DAY. 07/02/2023 Active Stiolto Respimat 2.5-2.5 MCG/ACT aerosol solution inhaler INHALE 2 PUFF BY INHALATION ROUTE EVERY DAY AT THE SAME TIME EACH DAY 07/29/2023 Active traZODone (DESYREL) 150 MG tablet TAKE 1 TABLET BY MOUTH EVERYDAY AT BEDTIME 07/13/2023 Active acetaminophen (TYLENOL) 325 MG tablet every 4 hours Active atorvastatin (LIPITOR) 40 MG tablet 1 (one) time each day at the same time 03/23/2023 Active budesonide-formoter ol (Symbicort) 160-4.5 MCG/ACT inhaler every 12 hours 03/21/2022 Active butalbital-acetamin ophen-caffeine (FIORICET) 50-325-40 MG per tablet Take 1 tablet by mouth every 30 minutes as needed 11/26/2022 Active DULoxetine (CYMBALTA) [address] capsule Take 30 mg by mouth in the morning. 12/05/2022 Active isosorbide mononitrate (IMDUR) 30 MG 24 hr tablet Take 30 mg by mouth in the morning. Active megestrol (MEGACE) 40 MG tablet Take 40 mg by mouth in the morning. 12/25/2022 Active omeprazole (PriLOSEC) [address] capsule Take 40 mg by mouth in the morning. Active tiotropium (SPIRIVA) 18 MCG per inhalation capsule Place 18 mcg into inhaler and inhale in the morning. Active Cholecalciferol (Vitamin D) 50 MCG (1999 UT) capsuleIndications: Vitamin D deficiency, not otherwise specified Take 1 capsule by mouth 1 (one) time each day 90 capsule 3 08/20/2023 Active Active Problems Problem Noted Date Diagnosed Date Lupus erythematosus 03/15/2024 Heart failure 10/03/2023 Spondylosis without myelopathy 08/13/2023 Overview (03/15/2024): DESCRIPTION: Facet arthropathy NOTES: x ray lumbar 2022 Problem Code: M47.819; Problem Code Type: ICD-10; Scoliosis deformity of spine 08/13/2023 Overview (03/15/2024): DESCRIPTION: Levoscoliosis NOTES: x ray lumbar 2022 Problem Code: M41.80; Problem Code Type: ICD-10; Weakness 07/14/2023 Chronic combined systolic and diastolic heart fa ilure 05/20/2023 Overview (03/15/2024): DESCRIPTION: Chronic combined systolic (congestive) and diastolic (congestive) heart failure Problem Code: I50.42; Problem Code Type: ICD-10; Abnormal gait 05/11/2023 Overview (03/15/2024): DESCRIPTION: Imbalance Problem Code: R26.89; Problem Code Type: ICD-10; Acute chest pain 02/24/2023 Hypertensive heart disease with congestive heart failure 12/17/2022 Overview (03/15/2024): DESCRIPTION: Hypertensive HF (heart failure) Problem Code: I11.0; Problem Code Type: ICD-10; Transient cerebral ischemia 12/17/2022 Overview (03/15/2024): DESCRIPTION: TIA (transient ischemic attack) NOTES: from hospitalization discharge Problem Code: G45.9; Problem Code Type: ICD-10; Transient cerebral ischemia 12/03/2022 Systemic lupus erythematosus 09/29/2022 Overview (03/15/2024): DESCRIPTION: Lupus Problem Code: M32.9; Problem Code Type: ICD-10; Body mass index less than 20 07/09/2022 Overview (03/15/2024): DESCRIPTION: BMI less than 19,adult Problem Code: Z68.1; Problem Code Type: ICD- 10; Loss of appetite 07/09/2022 Overview (03/15/2024): DESCRIPTION: Poor appetite Problem Code: R63.0; Problem Code Type: ICD-10; Acute injury of kidney 07/07/2022 Gastroesophageal reflux disease 07/07/2022 Heart failure with reduced ejection fraction History of cerebrovascular accident 07/07/2022 History of coronary artery bypass grafting 07/07 Ischemic cardiomyopathy 07/07/2022 Rheumatoid arthritis 07/07/2022 Vertigo 07/07/2022 Abdominal aortic aneurysm without rupture 2021 Overview (08/20/2023): I71.4: Abdominal aortic aneurysm, without rupture ABDOMINAL AORTIC ANEURYSM: CARE INSTRUCTIONS Coronary arteriosclerosis 06/24/2022 Overview (08/20/2023): I25.10: Atherosclerotic heart disease of [place] coronary artery without angina pectoris Atherosclerosis of coronary artery without angin a pectoris 03/05/2022 Overview (03/15/2024): DESCRIPTION: CAD (coronary artery disease) Problem Code: I25.10; Problem Code Type: ICD-10; Low back pain 08/08/2021 Overview (03/15/2024): DESCRIPTION: Acute midline low back pain without sciatica Problem Code: M54.50; Problem Code Type: ICD-10; Hypertensive heart disease without congestive he art failure 06/09/2021 Overview (03/15/2024): DESCRIPTION: Heart disease, hypertensive Problem Code: I11.9; Problem Code Type: ICD-10; Acute lower respiratory tract infection 06/04/20 Overview (03/15/2024): DESCRIPTION: Acute respiratory infection Problem Code: J22; Problem Code Type: ICD-10; Left side sciatica 03/13/2021 Overview (03/15/2024): DESCRIPTION: Sciatica of left side Problem Code: M54.32; Problem Code Type: ICD- 10; Vitamin D deficiency 01/15/2021 Overview (03/15/2024): DESCRIPTION: Vitamin D deficiency Problem Code: E55.9; Problem Code Type: ICD- 10; Prediabetes 01/15/2021 Overview (03/15/2024): DESCRIPTION: Prediabetes Problem Code: R73.03; Problem Code Type: ICD-10; Iron deficiency anemia 01/15/2021 Overview (03/15/2024): DESCRIPTION: Iron deficiency anemia secondary to inadequate dietary iron intake Problem Code: D50.8; Problem Code Type: ICD-10; Dizziness and giddiness 01/15/2021 Overview (03/15/2024): DESCRIPTION: Dizziness NOTES: pt denied associated sxs she verbalized sxs is like low BP Problem Code: R42; Problem Code Type: ICD-10; Constipation 12/13/2019 Overview (03/15/2024): DESCRIPTION: Constipation, unspecified constipation type Problem Code: K59.00; Problem Code Type: ICD-10; Coronary arteriosclerosis in artery of [place] heart 12/13/2019 Overview (03/15/2024): DESCRIPTION: 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 HIGH BLOOD PRESSURE: CARE INSTRUCTIONS ?? LEARNING ABOUT HIGH BLOOD PRESSURE Iron deficiency anemia 06/06/2019 Acute severe exacerbation of asthma 04/09/2019 Overview (03/15/2024): DESCRIPTION: Moderate asthma with status asthmaticus, unspecified whether persistent Problem Code: J45.902; Problem Code Type: ICD-10; Chronic obstructive pulmonary disease 04/09/2019 Overview (03/15/2024): DESCRIPTION: Chronic obstructive pulmonary disease, unspecified COPD type NOTES: Patient has appt by Pulmonolgy 09/13/2019 Problem Code: J44.9; Problem Code Type: ICD-10; H/O: blood disorder 03/29/2019 Overview (03/15/2024): DESCRIPTION: History of anemia Polyneuropathy 03/29/2019 Overview (03/15/2024): DESCRIPTION: Neuropathy Problem Code: G62.9; Problem Code Type: ICD-10; Primary insomnia 03/29/2019 Overview (03/15/2024): DESCRIPTION: Primary insomnia Problem Code: F51.01; Problem Code Type: ICD-10; Gastro-esophageal reflux disease without esophag itis 03/29/2019 Overview (03/15/2024): DESCRIPTION: Gastroesophageal reflux disease without esophagitis Problem Code: K21.9; Problem Code Type: ICD-10; Heart disease 03/29/2019 Overview (03/15/2024): DESCRIPTION: Heart disease NOTES: Patient was seen by Cardi[facility] One week ago Dhiraj Fischer Problem Code: I51.9; Problem Code Type: ICD-10; Essential hypertension 03/29/2019 Overview (03/15/2024): DESCRIPTION: Essential hypertension Problem Code: I10; Problem Code Type: ICD- 10; Pure hypercholesterolemia 03/29/2019 Overview (03/15/2024): DESCRIPTION: Hypercholesteremia Problem Code: E78.00; Problem Code Type: ICD-10; Family History Medical History Relation Comments Heart disease Father Hyperlipidemia Father Hypertension Father Stroke Father Hypertension Mother Kidney disease Mother Relation Status Comments Father Mother Social History Tobacco Use Types Packs/Day Years Used Date Smoking Tobacco: Former Cigarettes Smokeless Tobacco: Former Tobacco Cessation:Counseling Given: No Alcohol Use Standard Drinks/Week Comments Not Currently 0 (1 standard drink = 0.6 oz pur e alcohol) Sex and Gender Information Value Date Recorded Sex Assigned at Not on file Gender Identity Not on file Sexual Orientation Not on file Last Filed Vital Signs Vital Sign Reading Time Taken Comments Blood Pressure 134/104 08/20/2023 1:23 PM EDT Pulse 100 08/20/2023 1:23 PM EDT Temperature - - Respiratory Rate - - Oxygen Saturation - - Inhaled Oxygen Concentration - - Weight 59.4 kg (131 lb) 08/20/2023 1:23 PM EDT Height 160 cm (5' 3 ) 08/20/2023 1:23 PM EDT Body Mass Index 23.21 08/20/2023 1:23 PM EDT Plan of Treatment Health Maintenance Due Date Last Done Comments Pneumococcal PPSV23 Highest Risk Adult (1 of 3 - PCV13 ) 12/24/1979 Influenza Vaccine (#1) 2024 Care Teams Vacuum Filter Operator Relationship Specialty Start Date End Date Kenny Kruse [address] [place] [address] PCP - General Family Medicine 08/20/23
--- OUTSIDE RECORDS SUMMARY | 2024-11-11 13:46 | XMS_ITS | Encounter Summary ---
Demographics Address [address] [place] [address] Work Phone Email Address Preferred Language en Marital Status Holiness Affiliation Unknown Race Other Race Ethnic Group or Author Organization [employer] Address [address] [place] [address] [address] [place] [address] Care Team Providers Care External Relations Manager Name Role Phone Sheree Strong LISHA Primary Care Provider [phone] Reason for Visit * Reason Onset Date Comments Nurse Triage 07/06/2024 Encounter Details Date Type Department Care Team (Late st Contact Info) Description 07/06/2024 Telephone [facility] [address] [place] [address] [phone] Emma De La Cruz ANP [address] [place] [address] Nurse Triage Social History Tobacco Use Types Packs/Day Years Used Date Smoking Tobacco: Former Cigarettes Q uit: 1977 Smokeless Tobacco: Never Comments Unknown Sex and Gender Information Value Date Recorded Sex Assigned at Female 08/18/2022 10:14 AM EDT Legal Sex Female 10:14 AM EDT Gender Identity Female 05/20/2024 1:32 PM EDT Sexual Orientation Straight 05/20/2024 1: 32 PM EDT documented as of this encounter Miscellaneous Notes * Telephone Encounter - Favian Jalloh - 07/06/2024 2:49 PM EDT Symptom: High Blood Pressure - Caller Reports Outcome: Transfer to a nurse or provider NOW! Reason: Trouble breathing The caller accepted this outcome documented in this encounter Plan of Treatment Upcoming Encounters Date Type Department Care Team (Late st Contact Info) Description 11/17/2024 10:00 AM EST Office Visit [facility] [address] [place] [address] [phone] Name, MD Dante [address] [place] [address] 02/16/2025 2:00 PM EDT Office Visit [facility] OPTOMETRY [address] [place], [place] [phone] Martine Benavidez, LEROY [address] [place] [address] documented as of this encounter Visit Diagnoses Not on filedocumented in this encounter Care Teams External Relations Manager Relationship Specialty Start Date End Date Sheree Strong NP [address] [place] [address] PCP - General Family Medicine 09/06/24 documented as of this encounter
--- OUTSIDE RECORDS SUMMARY | 2024-11-11 13:46 | XMS_ITS | Encounter Summary ---
Demographics Address [address] [place] [address] Mobile Phone Preferred Language en Marital Status Zoroastrianism Affiliation Unknown Race Other Race Ethnic Group or Author Organization [employer] Address [address] [place] [address] Care Team Providers Care Gardening Supervisor Name Role Phone Sheree Strong [employer]BI[employer]ICE [employer] Primary Care Provider [phone] Reason for Visit * Reason Comments Stroke Stroke alert from [facility] rehab Encounter Details Date Type Department Care Team (Late st Contact Info) Description 11/03/2024 12:50 PM EST - 11/03/2024 9:01 PM EST Emergency [facility] Emergency [address] [place] [id number] Elijah Broderick MD [address] [address] Nicolasa Meyer, DO [address] [place] [address] Left facial numbness (Primary Dx); Cerebrovascular accident (CVA), unspecified mechanism (CMS/HCC) Discharge Disposition: Home or Self Care Social History Tobacco Use Types Packs/Day Years [...] on file documented as of this encounter Last Filed Vital Signs Vital Sign Reading Time Taken Comments Blood Pressure 132/78 11/03/2024 3:53 PM EST Pulse 86 11/03/2024 3:53 PM EST Temperature 36.7 ??C (98.1 ??F) 11/03/2024 3:53 PM ES T Respiratory Rate 18 11/03/2024 3:53 PM EST Oxygen Saturation 98% 11/03/2024 3:53 PM EST Inhaled Oxygen Concentration - - Weight 50.8 kg (112 lb) 11/03/2024 12:45 PM EST Height 160 cm (5' 2.99 ) 11/03/2024 12:45 PM EST Body Mass Index 19.85 11/03/2024 12:45 PM EST documented in this encounter Discharge Instructions * Discharge Instructions* UMA Huggins - 11/03/2024 7:53 PM EST All work up and imaging reassuring, no acute stroke. documented in this encounter Medications at Time of Discharge Medication Sig Dispensed Refills Start Date End Date aspirin 81 mg chewable tabletIndications:prevent ion of cerebrovascular accident Chew 1 tablet (81 mg total) 1 (one) time each day. 30 each 11/08/2024 12/08/2024 atorvastatin (LIPITOR) 40 mg tablet Take 1 tablet (40 mg total) by mouth at bedtime. 30 each 11/08/2024 12/08/2024 budesonide-formoteroL (SYMBICORT) 80-4.5 mcg/actuation inhaler Inhale 2 puffs by mouth 2 (two) times a day. Rinse mouth with water after use to reduce aftertaste and incidence of candidiasis. Do not swallow. clopidogreL (PLAVIX) 75 mg tabletIndications:cerebra l thromboembolism prevention Take 1 tablet (75 mg total) by mouth 1 (one) time each day. 30 each 11/08/2024 12/08/2024 docusate sodium (COLACE) 100 mg capsule Take 1 capsule (100 mg total) by mouth 2 (two) times a day. 60 each 11/08/2024 12/08/2024 DULoxetine (CYMBALTA) [address] capsule Take 1 capsule (60 mg total) by mouth 1 (one) time each day. Do not crush or chew. 30 each 11/08/2024 12/08/2024 ferrous sulfate 325 mg (65 mg elemental iron) tablet Take 1 tablet (325 mg total) by mouth 1 (one) time each day. 30 each 11/08/2024 12/08/2024 gabapentin (NEURONTIN) 400 mg capsule Take 1 capsule (400 mg total) by mouth every 8 (eight) hours. 90 each 11/08/2024 12/08/2024 lidocaine 4 % patch Apply 1 patch topically 1 (one) time each day. Right shoulder pain. 30 each 11/08/2024 12/08/2024 oxyCODONE (ROXICODONE) 5 mg immediate release tablet Take 0.5 tablets (2.5 mg total) by mouth 2 (two) times a day if needed for severe pain for up to 7 days. Max Daily Amount: 5 mg 7 tablet 11/08/2024 11/15/2024 pantoprazole (PROTONIX) 40 mg EC tablet Take 1 tablet (40 mg total) by mouth 1 (one) time each day before breakfast. Do not crush, chew, or split. 30 each 11/08/2024 12/08/2024 senna (SENOKOT) 8.6 mg tablet Take 2 tablets (17.2 mg total) by mouth at bedtime. 60 each 11/08/2024 12/08/2024 traZODone (DESYREL) 150 mg tablet Take 1 tablet (150 mg total) by mouth at bedtime. 30 each 11/08/2024 12/08/2024 acetaminophen (TYLENOL) 500 mg tablet Take 2 tablets (1,000 mg total) by mouth every 8 (eight) hours if needed for mild pain. 11/08/2024 albuterol HFA (PROAIR HFA ; PROVENTIL HFA ; VENTOLIN HFA) 90 mcg/actuation inhaler Inhale 2 puffs by mouth 4 (four) times a day if needed for wheezing. 11/08/2024 amLODIPine (NORVASC) 10 mg tablet Take 1 tablet (10 mg total) by mouth 1 (one) time each day. 10/26/2024 11/08/2024 aspirin 81 mg chewable tablet Chew 1 tablet (81 mg total) 1 (one) time each day. 10/26/2024 11/08/2024 atorvastatin (LIPITOR) 40 mg tablet Take 1 tablet (40 mg total) by mouth at bedtime. 11/08/2024 carvediloL (COREG) 25 mg tablet Take 1 tablet (25 mg total) by mouth 2 (two) times a day. 11/08/2024 clopidogreL (PLAVIX) 75 mg tablet Take 1 tablet (75 mg total) by mouth 1 (one) time each day. 10/26/2024 11/08/2024 docusate sodium (COLACE) 100 mg capsule Take 1 capsule (100 mg total) by mouth 2 (two) times a day. 11/08/2024 DULoxetine (CYMBALTA) [address] capsule Take 1 capsule (60 mg total) by mouth 1 (one) time each day. Do not crush or chew. 10/26/2024 11/08/2024 ferrous sulfate 325 mg (65 mg elemental iron) tablet Take 1 tablet (325 mg total) by mouth 1 (one) time each day. 11/08/2024 gabapentin (NEURONTIN) 800 mg tablet Take 1 tablet (800 mg total) by mouth 3 (three) times a day. 11/08/2024 pantoprazole (PROTONIX) 40 mg EC tablet Take 1 tablet (40 mg total) by mouth 1 (one) time each day before breakfast. Do not crush, chew, or split. 10/26/2024 11/08/2024 sacubitriL-valsartan (Entresto) 97-103 mg per tablet Take 1 tablet by mouth 2 (two) times a day. 11/08/2024 traZODone (DESYREL) 150 mg tablet Take 1 tablet (150 mg total) by mouth at bedtime. 11/08/2024 documented as of this encounter Discharge Disposition Disposition Code Departure Means Destination Comment s Home or Self Care documented in this encounter Progress Notes * Nicolasa Meyer, DO - 11/03/2024 7:52 PM EST ED Course as of 11/03/241952 [facility] Nov 03, 2024 1436 Neck CTA: Left vertebral artery occlusion with reconstitution distally. Brain CTA: No evidence of intracranial aneurysm, thrombosis or arterial occlusion. [BT] 1437 No evidence of acute intracranial process on noncontrast head CT. [BT] 173 Patient care will be signed out to Shantell Turner PA-C at approximately 5 PM pending MRI. [BT] 194 I received transfer of care and signout of this patient at approximately 1700 hrs. pending results of MRI. This is a 63-year-old female with a recent stroke on 10/25 at [facility] having received TNK at that time concerning for a left vertebral artery occlusion with distal reconstitution. She doeshave some residual left-sided deficit from this event, however came to the emergency department after worsening symptoms sudden onset at approximately 1130 today. NIH on initial evaluation reported to me was 8. Patient is reportedly on Plavix and aspirin presently. MRI resulting without any acute findings. There was some concern for possible right maxillary sinusitis, however patient has no concerns of nasal congestion, rhinorrhea, earaches or pain, is nontender to percussion on the maxillary sinus on this side and all of her complaints are left-sided. I do not think that this clinically supports a concern for sinusitis, will withhold any antibiotic treatment at this time. Workup otherwise unremarkable. Troponin is still pending at this time, however she is without any chest pain or trouble breathing, I anticipate this will be within normal limits. She will be appropriate for discharge back to rehab. [EN] ED Course User Index [BT] UMA Ryan [EN] UMA Huggins Clinical Impressions as of 11/03/241952 Left facial numbness Cerebrovascular accident (CVA), unspecified mechanism (CMS/HCC) Data Unavailable No diagnosis found. Procedures This is a split/shared visit with UMA Huggins. I personally performed the medical decision making (MDM) for the care of this patient on 11/03/24 as documented below No sign of stroke on MRI. Patient was seen at [facility] and was given TNK at that time for left vertebral artery occlusion. Patient is not a tPA candidate currently. Patient had secondary stroke workup performed at [facility]. She is optimized with Plavix and aspirin. Patient is appropriate for discharge. Nicolasa Meyer DO 11/03/24 10:23 PM EST Nicolasa Meyer DO * UMA Saez - 11/03/2024 1:14 PM EST Images from the original note were not included. JUAN CARLOS PROGRESS NOTE Date: 11/03/2024 Author: UMA Saez Patient ID: Estephania Bill is a 63 y.o. female : 1960 MR#: [id number] SUBJECTIVE Subjective Patient was seen on 2 separate occasions. She was initially seen in the morning and reported that she felt well. She was happy about her progress. Physical therapy reports that she has been walking with therapy. Otherwise she had no other complaints. Approximately 1220 I was asked to see the patient again as she developed acute onset of left-sided weakness facial numbness. Stroke code was called. Vital signs were noted to be stable. EKG sinus. [id number] 98. Rapid response team evaluated patient patient was brought to [facility] emergency room/CTof head was ordered ROS Constitutional :no fever chills , appetite fair, sleeping well HEENT: denies headaches Respiratory: denies shortness of breath, coughing or wheezing Cardiac: denies chest pain, palpitations, : No abd pain, no N/V. Genitourinary: denies any dysuria frequency urgency Musculoskeletal: No joint pain ,back pain Allergies Patient has no known allergies. Current Medications: OBJECTIVE Vitals: 11/03/24 1245 BP: (!) 158/85 Patient Position: Lying Pulse: 81 Resp: 14 Temp: 36.9 ??C (98.4 ??F) TempSrc: Oral SpO2: 100% Weight: 50.8 kg (112 lb) Height: 1.6 m (62.99 ) PHYSICAL EXAM General: conscious alert no acute distress HEENT: pupils are equal round and reactive. extraocular movements are grossly intact lungs clear to auscultation, no wheezing or crackles noted heart regular rate and rhythm, no murmur or rubs abdomen soft nontender nondistended positive bowel sounds Musculoskeletal: No gross deformity to joints extremities without edema, erythema or calf tenderness neuro: Left-sided weakness improving skin: no rashes or lesions. psych: mood stable appearing, good eye contact. Patient was seen once again early afternoon and noted to have left-sided weakness, difficulty with her speech. Noted to be weaker compared to earlier exam. LABS HEMATOLOGY Lab Results Component Value Date WBC 4.9 10/29/2024 HGB 10.8 (L) 10/29/2024 HCT 35.7 10/29/2024 MCV 78.1 (L) 10/29/2024 PLT 227 10/29/2024 CHEMISTRY Lab Results Component Value Date GLUCOSE 110 (H) 11/03/2024 NA 137 10/29/2024 K 4.6 10/29/2024 CO2 27 10/29/2024 CL 107 10/29/2024 BUN 17 10/29/2024 CREATININE 0.75 10/29/2024 EGFR 90 10/29/2024 CALCIUM 8.8 10/29/2024 ANIONGAP 3 10/29/2024 Imaging: XR Shoulder 2+ Views Right Narrative: INDICATION: Shoulder pain FINDINGS: Minimum of 2 views of the right shoulder were obtained. No prior studies available for comparison. No fracture or dislocation. No radiopaque foreign body or periosteal reaction is noted. No significant soft tissue abnormality. Mild degenerative changes. Impression: No shoulder fracture or dislocation. [id number] -------- FINAL REPORT -------- Dictated By: Dell Abraham Dictated Date: 10/26/2024 14:24 ET Assigned Physician: Dell Abraham Reviewed and Electronically Signed By: Dell Abraham Signed Date: 10/26/2024 14:25 ET Workstation ID: [id number] Transcribed By: Self Edit Transcribed Date: 10/26/2024 14:24 ET ASSESSMENT & PLAN Addendum to note Approximately 1220 patient had neurological change. Reports increased left-sided weakness facial numbness Vital signs stable. [id number] 98 Examination reveals left-sided weakness to 2/ 5 difficulty with speech. Decrease sensation to her face. Difficulty with tongue protrusion Rapid response stroke called. Patient was taken urgently to CAT scan then to the emergency room. This is a 63-year-old female with a history of coronary artery disease status post CABG, CVA with residual left-sided hemiparesis, PAD/PVD who presented to [facility] with chest pain radiating down left arm. While in the emergency room she developed acute left-sided numbness tingling and facial droop. Concern for stroke #TIA versus acute CVA New acute onset of left-sided numbness tingling and facial droop History of CVA with residual left-sided weakness- Status post TNK on 10/19 on with resolution of symptoms CT of the head nonacute CTA with no intracranial LVO but known chronic left vertebral occlusion MRI showing no acute strokes Echocardiogram technically limited study however LV function appears grossly normal, right ventricular size and function appears grossly normal. Mitral valve appears mildly calcified, trace mitral regurgitation. History of noncompliance with her antiplatelets She was recommended to resume her antiplatelets as well as statin. LDL 46 She will need BP control and her BP medications were resumed Norvasc Coreg Entresto She will need to follow-up with her stroke clinic after discharge at [facility] Per rehab team Chronic residual left-sided weakness from prior CVA Now with increase weakness on the left side per patient report #Hypertension Blood pressure tightly control concern for hypotension Patient was noncompliant with her BP meds at home and all meds were resumed on discharge Reduce BP meds Coreg 25 mg twice daily with meals-12.5 twice a day> reduce 6.25 bid Norvasc 10 mg daily--> DC Entresto 97/103 tablet twice a day--> 24 mg/26 #History of CAD/history of CABG Ischemic cardiomyopathy EF of 60% Presented to the hospital with chest pain negative cardiac workup Echocardiogram technically difficult study however reveals that LV function appears grossly abnormal. See above. She was recommended for Entresto, no evidence of volume overload on exam. History of PVD/PAD History of renal artery stenosis History of bilateral renal stents continue Plavix aspirin statin History of chronic pain syndrome continue with gabapentin prediabetes/diabetes A1c 6.1 .Patient is on Jardiance Monitor glucose Hyperlipidemia Statin 40 mg LDL 46 Follow-up with PCP outpatient setting to monitor lipid panel COPD Continue with inhalers Pulmicort, perforomist, albuterol as needed No evidence of exacerbation Chronic pain Continue with gabapentin 600 3 times dailyv Duloxetine 60 mg History of insomnia Trazodone 150 mg p.o. nightly DVT prophylaxis defer to Dr. Man Total time spent today greater than 60 minutes DAILY CARE CHECKLIST * Svetlana Carter RN - 11/03/2024 12:55 PM EST Last known well time 1130 today; while at [facility] experienced new left side deficits includingweakness, left facial pain and headache Able to follow commands and is alert, oriented to time, place, situation, and self Prior to arrival had CT imaging studies performed; placed on cardiac monitoring and provider notified on arrival * UMA Ryan - 11/03/2024 12:47 PM ESTAssociated Order(s): Critical Care Emergency Medicine Note Patient Name: Estephania Bill Initial Evaluation: 11/03/2024 : 1960 Patient's PCP: BISHOP Ocasio Emergency Physician: UMA Ryan History of Present Illness Chief Complaint: Chief Complaint Patient presents with Stroke Stroke alert from [facility] HPI: This is a 63-year-old female with a documented past medical history of CAD s/p CABG in 2019 on aspirin and Plavix, HFrEF with an EF 60%, bilateral renal stenosis, hypertension hyperlipidemia, COPD who is presenting today from the [facility] facility with concern for stroke. Patient was admitted to [place] on 10/25 from the [facility] emergency department after she was seen for intermittent left-sided chest pain radiating to the left upper extremity with difficulty opening left eye, left facial numbness and tingling and weakness of her left upper extremity. At that time on 10/19 she received TNK CThead was negative, CTA head and neck showed L vert origin narrowing versus occlusion. Today patient reported around 111130 to tech and 1221 to nursing staff a worsening left-sided facial numbness and also reported arm and leg felt weaker. Patient was called as a stroke brought to theemergency department. Patient is complaining of a headache at this time that is posterior as well shortness of breath. She is denying chest pain, visual changes, abdominal pain, nausea vomiting diarrhea. ROS: I have performed a ROS with the pertinent positives and negatives documented in the history ofpresent illness. Previous History History reviewed. No pertinent past medical history. History reviewed. No pertinent surgical history. No family history on file. has No Known Allergies. Current Facility-Administered Medications on File Prior to Encounter Medication Dose Route Frequency Provider Last Rate Last Admin [DEC Hold - Suspended Admission] acetaminophen (TYLENOL) tablet 1,000 mg 1,000 mg oral q8h PRN UMA Orona 1,000 mg at 11/02/24 1447 [DEC Hold - Suspended Admission] albuterol 2.5 mg /3 mL (0.083 %) nebulizer solution 2.5 mg 2.5 mg nebulization q6h PRN UMA Orona [DEC Hold - Suspended Admission] aspirin chewable tablet 81 mg 81 mg oral Daily UMA Orona81 mg at 11/03/24 0821 [DEC Hold - Suspended Admission] atorvastatin (LIPITOR) tablet 40 mg 40 mg oral Nightly UMA Orona 40 mg at 11/02/247 [DEC Hold - Suspended Admission] budesonide (PULMICORT) 1 mg/2 mL nebulizer solution 0.5 mg 0.5 mg nebulization Daily UMA Orona 0.5 mg at 11/03/24 08 And [DEC Hold - Suspended Admission] formoterol (PERFOROMIST) 20 mcg/2 mL nebulizer solution 20 mcg 20 mcg nebulization BID UMA Orona 20 mcg at 11/03/24 08 [DEC Hold - Suspended Admission] clopidogreL (PLAVIX) tablet 75 mg 75 mg oral Daily UMA Orona 75 mg at 11/03/24 0822 [DEC Hold - Suspended Admission] dextrose (D50W) 50% injection 12.5 g 12.5 g intravenous q15 min PRN UMA Orona [DEC Hold - Suspended Admission] dextrose (D50W) 50% injection 25 g 25 g intravenous q15 min PRN UMA Orona [Dec - Suspended Admission] dextrose 15 gram/60 mL oral solution 15 g 15 g oral q15 min PRN UMA Orona [DEC Hold - Suspended Admission] dextrose 15 gram/60 mL oral solution 30 g 30 g oral q15 min PRN UMA Orona [Dec - Suspended Admission] docusate sodium (COLACE) capsule 100 mg 100 mg oral BID UMA Orona 100 mg at 11/03/24 08 [DEC Hold - Suspended Admission] DULoxetine (CYMBALTA) DR capsule 60 mg 60 mg oral Daily UMA Orona 60 mg at 11/03/24 08 [Dec - Suspended Admission] ferrous sulfate tablet 325 mg 325 mg oral Daily UMA Orona 325 mg at 11/03/24 08 [Dec - Suspended Admission] gabapentin (NEURONTIN) capsule 400 mg 400 mg oral q8h SUNIL Julainn Man DO 400 mg at 11/03/24 0534 [Dec - Suspended Admission] Glucagon HCl (rDNA) injection 1 mg 1 mg intramuscular Once PRN UMA Orona [Dec - Suspended Admission] insulin lispro injection 2-12 Units 2-12 Units subcutaneous TID ACSUMA Belcher 2 Units at 10/30/24 1709 [Dec - Suspended Admission] lidocaine 4 % patch 1 patch 1 patch Topical Daily Juliann Man DO 1 patch at 11/03/24 0820 [Dec - Suspended Admission] magnesium hydroxide (MILK OF MAGNESIA) 400 mg/5 mL suspension 30 mL 30 mL oral Nightly PRN UMA Orona 30 mL at 10/28/24 2115 [DEC Hold - Suspended Admission] oxyCODONE (ROXICODONE) immediate release tablet 2.5 mg 2.5 mg [id number] PRN Juliann Man, DO 2.5 mg at 11/02/24 2209 [DEC Hold - Suspended Admission] pantoprazole (PROTONIX) EC tablet 40 mg 40 mg oral q AM AC UMA Orona 40 mg at 11/03/24 0534 [DEC Hold - Suspended Admission] sacubitriL-valsartan (ENTRESTO) 24-26 mg per tablet 1 tablet 1 tablet oral BID UMA Saez 1 tablet at 11/01/24 2231 [DEC Hold - Suspended Admission] senna (SENOKOT) tablet 17.2 mg 2 tablet oral Nightly Ariadna Elaine NP 17.2 mg at 11/02/242157 [DEC Hold - Suspended Admission] sodium chloride 0.9 % flush 3 mL 3 mL intravenous q8h SUNIL Juliann Man DO 3 mL at 11/03/24 0535 [DEC Hold - Suspended Admission] traZODone (DESYREL) tablet 150 mg 150 mg oral Nightly UMA Orona 150 mg at 11/02/242157 Current Outpatient Medications on File Prior to Encounter Medication Sig Dispense Refill acetaminophen (TYLENOL) 500 mg tablet Take 2 tablets (1,000 mg total) by mouth every 8 (eight) hours if needed for mild pain. albuterol HFA (PROAIR HFA ; PROVENTIL HFA ; VENTOLIN HFA) 90 mcg/actuation inhaler Inhale 2 puffs by mouth 4 (four) times a day if needed for wheezing. amLODIPine (NORVASC) 10 mg tablet Take 1 tablet (10 mg total) by mouth 1 (one) time each day. aspirin 81 mg chewable tablet Chew 1 tablet (81 mg total) 1 (one) time each day. atorvastatin (LIPITOR) 40 mg tablet Take 1 tablet (40 mg total) by mouth at bedtime. budesonide-formoteroL (SYMBICORT) 80-4.5 mcg/actuation inhaler Inhale 2 puffs by mouth 2 (two) times a day. Rinse mouth with water after use to reduce aftertaste and incidence of candidiasis. Do not swallow. carvediloL (COREG) 25 mg tablet Take 1 tablet (25 mg total) by mouth 2 (two) times a day. clopidogreL (PLAVIX) 75 mg tablet Take 1 tablet (75 mg total) by mouth 1 (one) time each day. docusate sodium (COLACE) 100 mg capsule Take 1 capsule (100 mg total) by mouth 2 (two) times a day. DULoxetine (CYMBALTA) [address] capsule Take 1 capsule (60 mg total) by mouth 1 (one) time each day.Do not crush or chew. ferrous sulfate 325 mg (65 mg elemental iron) tablet Take 1 tablet (325 mg total) by mouth 1 (one) time each day. gabapentin (NEURONTIN) 800 mg tablet Take 1 tablet (800 mg total) by mouth 3 (three) times a day. pantoprazole (PROTONIX) 40 mg EC tablet Take 1 tablet (40 mg total) by mouth 1 (one) time each day before breakfast. Do not crush, chew, or split. sacubitriL-valsartan (Entresto) 97-103 mg per tablet Take 1 tablet by mouth 2 (two) times a day. traZODone (DESYREL) 150 mg tablet Take 1 tablet (150 mg total) by mouth at bedtime. Physical Exam ED Triage Vitals [11/03/24 1245] Temp Heart Rate Resp BP 36.9 ??C (98.4 ??F) 81 14 (!) 158/85 SpO2 Temp Source Heart Rate Source Patient Position 100 % Oral Monitor Lying BP Location FiO2 (%) -- -- General: awake, calm, cooperative, in no acute distress. Skin: warm, dry, no diaphoresis. Eyes: PERRLA, EOMI. No conjunctival injection, no lid lag noted. ENMT: Oral mucosa is moist, normal phonation, managing secretions. Neck: Trachea midline, full range of motion. No midline tenderness, step-offs, or deformities. Respiratory: lungs clear to auscultation bilaterally, no increased work of breathing. Cardiovascular: regular rate and rhythm, no peripheral edema. Equal pulses in all four extremities. Gastrointestinal: Soft, nondistended, nontender, without rebound tenderness or guarding. No CVA tenderness. Normoactive bowel sounds. MSK: 5 out of 5 strength and sensation in upper and lower extremities, extremities warm and well-perfused, sensation intact to light touch. No unilateral edema, no calf pain. Normal capillary refill time. Neurologic: Awake, alert, and oriented x3. CN II-XII grossly intact, no focal deficits. Psychiatric: Appropriate mood and affect Results Labs Reviewed CBC WITH AUTO DIFFERENTIAL - Abnormal Result Value WBC 6.9 RBC 4.60 Hemoglobin 11.0 (*) Hematocrit 36.1 MCV 79.2 MCH 24.1 (*) MCHC 30.5 (*) RDW 17.0 (*) Platelets 224 MPV 10.1 NRBC 0.0 NRBC Absolute 0.00 Neutrophils Relative 49.9 Lymphocytes Relative 36.7 Monocytes Relative 9.9 Eosinophils Relative 2.0 Basophils Relative 0.3 Immature Granulocytes Relative 1.2 Neutrophils Absolute 3.43 Lymphocytes Absolute 2.52 Monocytes Absolute 0.68 Eosinophils Absolute 0.14 Basophils Absolute 0.02 Immature Granulocytes Absolute 0.08 (*) ACTIVATED PARTIAL THROMBOPLASTIN TIME - Normal aPTT 29.6 PROTHROMBIN TIME WITH INR - Normal Protime 12.0 INR 1.0 COMPREHENSIVE METABOLIC PANEL - Normal Sodium 134 Potassium 4.1 Chloride 102 CO2 27 Anion Gap 5 Glucose 93 BUN 23 Creatinine 0.80 eGFR 83 BUN/Creatinine Ratio 28.8 Calcium 8.6 AST (SGOT) 20 ALT (SGPT) 28 Alkaline Phosphatase 72 Total Protein 6.3 Albumin 3.2 Total Bilirubin 0.4 TROPONIN I HIGH SENSITIVITY - Normal High Sensitivity Troponin I 7 Narrative: High levels of biotin in samples may falsely decrease hsTroponin values. Use caution when interpreting hsTroponin results in patients taking biotin who exhibit renal impairment (eGFR <60) or in patients taking more than 20 mg/day of biotin. CBC AND DIFFERENTIAL Narrative: The following orders were created for panel order CBC and differential. Procedure Abnormality Status --------- ------ CBC auto differential[[id number]] Abnormal Final result Please view results for these tests on the individual orders. TROPONIN I HIGH SENSITIVITY POC GLUCOSE Abnormal Labs Reviewed CBC WITH AUTO DIFFERENTIAL - Abnormal; Notable for the following components: Result Value Hemoglobin 11.0 (*) MCH 24.1 (*) MCHC 30.5 (*) RDW 17.0 (*) Immature Granulocytes Absolute 0.08 (*) All other components within normal limits MR Brain wo Contrast Final Result No acute intracranial abnormality. Additional findings as described. This document has been electronically signed by: Bryan Chadwick MD on 11/03/2024 19:30:07 XR Chest 1 View Final Result No evidence of active pulmonary disease. 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 Brain CTA: No evidence of intracranial aneurysm, thrombosis or arterial occlusion. -------- FINAL REPORT -------- Dictated By: Dell Abraham Dictated Date: 11/03/2024 14:02 ET Assigned Physician: Dell Abraham Reviewed and Electronically Signed By: Dell Abraham Signed Date: 11/03/2024 14:14 ET Workstation ID: [id number] Transcribed By: Self Edit Transcribed Date: 11/03/2024 14:02 ET EKG Interpretation EKG shows normal sinus rhythm at a rate of 94 bpm, no ischemic changes Critical Care Time None ? Medical Decision Making 63-year-old senting from [facility] after a stroke on 10/19 with complaint of worsening neurodeficits. On exam patient is alert and oriented, NIH stroke scale of 8 with aphasia and left-sided facial droop, left upper and lower extremity weakness and sensation deficit. Cardiopulmonary exam is unremarkable, abdominal exam unremarkable. Not a candidate for thrombolytics due to hx of recent CVA s/p TNK administration (within 3 months). Case discussed with ED attending Dr. Broderick, patient will receive stroke protocol imaging and further workup in ED. Of note, at the time of patient arrival in ED and my examination, patient had already received CT brain [facility] and was evaluated by [facility] team through rapid response. CT head without contrast is negative, CTA of head and neck are showing occlusion of the left vertebral artery which is same findings from previous imaging. Case was discussed with [facility] Dr. Colon whorecommends MRI at this time in ED. Medications sodium chloride 0.9 % flush 10 mL (10 mL intravenous Given 11/03/24 1337) iopamidoL (ISOVUE-370) 370 mg iodine /mL (76 %) injection 90 mL (90 mL intravenous Given 11/03/24 1337) ED Course as of 11/03/242121 [facility] Nov 03, 2024 143 Neck CTA: Left vertebral artery occlusion with reconstitution distally. Brain CTA: No evidence of intracranial aneurysm, thrombosis or arterial occlusion. [BT] 1437 No evidence of acute intracranial process on noncontrast head CT. [BT] 173 Patient care will be signed out to Shantell Turner PA-C at approximately 5 PM pending MRI. [BT] 1946 I received transfer of care and signout of this patient at approximately 1700 hrs. pending results of MRI. This is a 63-year-old female with a recent stroke on 10/25 at [facility] having received TNK at that time concerning for a left vertebral artery occlusion with distal reconstitution. She doeshave some residual left-sided deficit from this event, however came to the emergency department after worsening symptoms sudden onset at approximately 1130 today. NIH on initial evaluation reported to me was 8. Patient is reportedly on Plavix and aspirin presently. MRI resulting without any acute findings. There was some concern for possible right maxillary sinusitis, however patient has no concerns of nasal congestion, rhinorrhea, earaches or pain, is nontender to percussion on the maxillary sinus on this side and all of her complaints are left-sided. I do not think that this clinically supports a concern for sinusitis, will withhold any antibiotic treatment at this time. Workup otherwise unremarkable. Troponin is still pending at this time, however she is without any chest pain or trouble breathing, I anticipate this will be within normal limits. She will be appropriate for discharge back to rehab. [EN] ED Course User Index [BT] UMA Ryan [EN] UMA Huggins Clinical Impressions as of 11/03/242121 Left facial numbness Cerebrovascular accident (CVA), unspecified mechanism (CMS/HCC) Procedures Critical Care Performed by: UMA Ryan Authorized by: Elijah Broderick MD Critical care provider statement: Critical care time (minutes): 30 Critical care was necessary to treat or prevent imminent or life-threatening deterioration of the following conditions: MANAGER CT failure or compromise Critical care was time spent personally by me on the following activities: Examination of patient, ordering and performing treatments and interventions, ordering and review of laboratory studies, ordering and review of radiographic studies, review of old charts, re-evaluation of patient's condition, obtaining history from patient or surrogate, discussions with consultants and development of treatment plan with patient or surrogate Diagnosis 1. Left facial numbness 2. Cerebrovascular accident (CVA), unspecified mechanism (CMS/HCC) Disposition Discharge ED Prescriptions None Physician Attestation UMA Ryan 11/03/24 1313 This is a split/shared visit with UMA Ryan. I personally performed the medical decision making (MDM) for the care of this patient on 11/03/24 as documented below Agree with assessment and plan to admit the patient for MRI presuming CT is negative UMA Ryan 11/03/24 9:22 PM EST UMA Ryan MD 11/03/24 1352 Fernanda TarUMA szymanski 11/03/24 1522 Fernanda Tarpey, PA 11/03/24 1705 Fernanda Tarpey PA 11/03/24 1736 Fernanda Taryifany PA 11/03/24 2051 Fernanda Taryifany PA 11/03/24 205 Fernanda Tarnessa PA 11/03/24 2122 documented in this encounter Plan of Treatment Upcoming Encounters Date Type Department Care Team (Late st Contact Info) Description 11/16/2024 2:30 PM EST Evaluation [address] [phone] Lore Cortes, PT 11/23/2024 2:30 PM EST Treatment [facility] [address] [phone] Lore Cortes, PT 11/28/2024 12:45 PM EST Treatment [address] [phone] Deysi Grijalva, PT 11/30/2024 10:30 AM EST Evaluation [facility] [address] [facility] [address] [place] [address] Alea Trejo, SMOG TECHNICIAN 12/07/2024 10:45 AM EST Treatment [facility] [address] [phone] Alea Trejo, SMOG TECHNICIAN 12/14/2024 10:45 AM EST Treatment [facility] [address] [place] [phone] Alea Trejo, SMOG TECHNICIAN documented as of this encounter Procedures Procedure Name Priority Date/Time Associated Diagnosis Comments POCT GLUCOSE BLOOD Routine 11/03/2024 9: 42 PM EST TROPONIN I HIGH SENSITIVITY STAT 11/03/2024 7:24 PM EST MR BRAIN WO CONTRAST STAT 11/03/2024 6:56 PM EST XR CHEST 1 VIEW STAT 11/03/2024 4:08 PM EST CBC WITH AUTO DIFFERENTIAL STAT 11/03/2024 2:02 PM EST ACTIVATED PARTIAL THROMBOPLASTIN TIME STAT 11/03/2024 2:02 PM EST PROTHROMBIN TIME WITH INR STAT 11/03/2024 2:02 PM EST CBC AND DIFFERENTIAL STAT 11/03/2024 2:02 PM EST COMPREHENSIVE METABOLIC PANEL STAT 11/03/2024 2:[address] ANGIO HEAD/NECK STROKE WO AND/OR W CONTRAST STAT 11/03/2024 1:42 PM EST ECG 12-LEAD STAT 11/03/2024 1:23 PM EST PA CRITICAL CARE 30-74 MINUTES Routine 11/03/2024 12:47 PM EST ECG ANNOTATED 11/03/2024 ECG ANNOTATED 11/03/2024 documented in this encounter Results * POCT Glucose, blood (11/03/2024 9:42 PM EST) [facility] Glucose POCT 100 70 - 100 mg/dL 11/03/2024 9:46 PM EST [facility] Blood Capillary blood specimen / Unknown 11/03/2024 9:42 PM EST 11/03/2024 9:47 PM EST Nicolasa Meyer DO LAB POINT OF CARE TEST DOCKED DEVICE UNSOLICITED RESULTS Performing Organization Address [facility]/ZIP Co de Phone Number [facility] [address] [place] [address], [place] [phone] * Troponin I high sensitivity (NOW and then in 1 hour) (11/03/2024 7:24 PM EST) [facility] High Sensitivity Troponin I 7 <=54 ng/L LAB CHEMISTRY METHOD 11/03/2024 8:21 PM EST [facility] Blood Venous blood specimen / Unknown Venipuncture / Unknown 11/03/2024 7:24 PM EST 11/03/2024 7:47 PM EST Narrative [facility] - 11/03/2024 8:21 PM EST High levels of biotin in samples may falsely decrease hsTroponin values. ??Use caution when interpreting hsTroponin results in patients taking biotin who exhibit renal impairment (eGFR <60) or in patients taking more than 20 mg/day of biotin. Fernanda EATON LAB BLOOD ORDERABLES Performing Organization Address [facility]/ZIP Co de Phone Number [facility] [address] [place] [address], [place] [phone] * MR Brain wo Contrast (11/03/2024 6:56 PM EST) Anatomical Region Laterality Modality Head and Neck Magnetic Resonan ce 11/03/2024 7:30 PM EST Impressions 11/03/2024 7:30 PM EST No acute intracranial abnormality. Additional findings as described. This document has been electronically signed by: Bryan Chadwick MD on 11/03/2024 19:30:07 Narrative 11/03/2024 7:30 PM EST MR Brain without gadolinium Comparison: None Findings: Motion artifact limits evaluation. Scattered bilateral lacunar infarcts, chronic in the cerebellum. Scattered T2/FLAIR hyperintensities throughout the subcortical and periventricular white matter, likely in keeping with chronic small vessel ischemic disease. Parenchymal volume loss with compensatory prominence of the ventricles and CSF spaces. No acute infarcts, intracranial hemorrhage, midline shift or hydrocephalus. Vascular flow voids are intact. The orbits are normal. Right maxillary sinus mucosal disease with tiny air-fluid level may reflect acute sinusitis. No focal bone lesion. Procedure Note Bryan Chadwick MD - 11/03/2024 MR Brain without gadolinium Comparison: None Findings: Motion artifact limits evaluation. Scattered bilateral lacunar infarcts, chronic in the cerebellum.Scattered T2/FLAIR hyperintensities throughout the subcortical and periventricular white matter, likely in keeping with chronic small vessel ischemic disease. Parenchymal volume loss with compensatory prominence of the ventricles and CSF spaces. No acute infarcts, intracranial hemorrhage, midline shift or hydrocephalus. Vascular flow voids are intact. The orbits are normal. Right maxillary sinus mucosal disease with tiny air-fluid level may reflect acute sinusitis. No focal bone lesion. IMPRESSION: No acute intracranial abnormality. Additional findings as described. This document has been electronically signed by: Bryan Chadwick MD on 11/03/2024 19:30:07 Fernanda EATON IMG MRI PROCEDURES * XR Chest 1 View (11/03/2024 4:08 PM EST) Anatomical Region Laterality Modality Body Radiographic Reny ging 11/03/2024 4:23 PM EST Impressions 11/03/2024 4:23 PM EST No evidence of active pulmonary disease. [id number] -------- FINAL REPORT -------- Dictated By: Dell Abraham Dictated Date: 11/03/2024 16:23 ET Assigned Physician: Dell Abraham Reviewed and Electronically Signed By: Dell Abraham Signed Date: 11/03/2024 16:23 ET Workstation ID: [id number] Transcribed By: Self Edit Transcribed Date: 11/03/2024 16:23 ET Narrative 11/03/2024 4:23 PM EST INDICATION: Shortness of breath FINDINGS: Single portable AP view of the chest obtained. No prior studies available for comparison. Lung ortez are clear. Heart normal in size and shape. Midline sternotomy noted with multiple mediastinal clips consistent with CABG procedure. Bony structures are grossly intact and normal for the patient's age. Procedure Note Dell Abraham MD - 11/03/2024 INDICATION: Shortness of breath FINDINGS: Single portable AP view of the chest obtained. No prior studiesavailable for comparison. Lung ortez are clear. Heart normal in size and shape. Midline sternotomy noted with multiple mediastinal clips consistent withCABG procedure. Bony structures are grossly intact and normal for the patient's age. IMPRESSION: No evidence of active pulmonary disease. [id number] -------- FINAL REPORT -------- Dictated By: Dell Abraham Dictated Date: 11/03/2024 16:23 ET Assigned Physician: Dell Abraham Reviewed and Electronically Signed By: Dell Abraham Signed Date: 11/03/2024 16:23 ET Workstation ID: [id number] Transcribed By: Self Edit Transcribed Date: 11/03/2024 16:23 ET Fernanda EATON IMG XR PROCEDURES * (ABNORMAL) CBC auto differential (11/03/2024 2:02 PM EST) WBC 6.9 4.8 - 10.8 K/[facility] HEMETOLOGY METHOD 11/03/2024 2:13 PM EST [facility] RBC 4.60 3.80 - 4.80 M/[facility] HEMETOLOGY METHOD 11/03/2024 2:13 PM EST [facility] Hemoglobin 11.0(L) 11.5 - 16.0 g/dL LAB HEMETOLOGY METHOD 11/03/2024 2:13 PM [facility] Hematocrit 36.1 35.0 - 47.0 % LAB HEMETOLOGY METHOD 11/03/2024 2:13 PM [facility] MCV 79.2 79.0 - 98.0 FL LAB HEMETOLOGY METHOD 11/03/2024 2:13 PM [facility] MCH 24.1(L) 27.0 - 32.0 pcg LAB HEMETOLOGY METHOD 11/03/2024 2:13 PM [facility] MCHC 30.5(L) 32.0 - 37.0 g/dL LAB HEMETOLOGY METHOD 11/03/2024 2:13 PM [facility] RDW 17.0(H) 11.0 - 15.0 % LAB HEMETOLOGY METHOD 11/03/2024 2:13 PM [facility] Platelets 224 130 - 400 K/mcL LAB HEMETOLOGY METHOD 11/03/2024 2:13 PM [facility] MPV 10.1 7.0 - 11.0 FL LAB HEMETOLOGY METHOD 11/03/2024 2:13 PM [facility] NRBC 0.0 <1.0 % LAB HEMETOLOGY METHOD 11/03/2024 2:13 PM [facility] NRBC Absolute 0.00 <0.10 K/mcL LAB HEMETOLOGY METHOD 11/03/2024 2:13 PM [facility] Neutrophils Relative 49.9 % LAB HEMETOLOGY METHOD 11/03/2024 2:13 PM [facility] Lymphocytes Relative 36.7 % LAB HEMETOLOGY METHOD 11/03/2024 2:13 PM [facility] Monocytes Relative 9.9 % LAB HEMETOLOGY METHOD 11/03/2024 2:13 PM EST [facility] Eosinophils Relative 2.0 % LAB HEMETOLOGY METHOD 11/03/2024 2:13 PM EST [facility] Basophils Relative 0.3 % LAB HEMETOLOGY METHOD 11/03/2024 2:13 PM [facility] Immature Granulocytes Relative 1.2 % LAB HEMETOLOGY METHOD 11/03/2024 2:13 PM EST [facility] Neutrophils Absolute 3.43 1.50 - 7.00 K/mcL LAB HEMETOLOGY METHOD 11/03/2024 2:13 PM EST [facility] Lymphocytes Absolute 2.52 1.00 - 5.00 K/mcL LAB HEMETOLOGY METHOD 11/03/2024 2:13 PM [facility] Monocytes Absolute 0.68 0.20 - 1.00 K/mcL LAB HEMETOLOGY METHOD 11/03/2024 2:13 PM EST [facility] Eosinophils Absolute 0.14 0.00 - 0.50 K/mcL LAB HEMETOLOGY METHOD 11/03/2024 2:13 PM [facility] Basophils Absolute 0.02 0.00 - 0.20 K/mcL LAB HEMETOLOGY METHOD 11/03/2024 2:13 PM [facility] Immature Granulocytes Absolute 0.08(H) 0.00 - 0.03 K/mcL LAB HEMETOLOGY METHOD 11/03/2024 2:13 PM EST [facility] Blood Venous blood specimen / Unknown Venipuncture / Unknown 11/03/2024 2:02 PM EST 11/03/2024 2:10 PM EST Fernanda EATON LAB BLOOD ORDERABLES [facility] [address] [place] [address], * Comprehensive metabolic panel (11/03/2024 2:02 PM EST) Sodium 134 133 - 145 mmol/L LAB CHEMISTRY METHOD 11/03/2024 2:45 PM [facility] Potassium 4.1 3.5 - 5.5 mmol/L LAB CHEMISTRY METHOD 11/03/2024 2:45 PM [facility] Chloride 102 96 - 110 mmol/L LAB CHEMISTRY METHOD 11/03/2024 2:45 PM [facility] CO2 27 21 - 32 mmol/L LAB CHEMISTRY METHOD 11/03/2024 2:45 PM [facility] Anion Gap 5 3 - 11 LAB CHEMISTRY METHOD 11/03/2024 2:45 PM [facility] Glucose 93 70 - 100 mg/dL LAB CHEMISTRY METHOD 11/03/2024 2:45 PM [facility] BUN 23 5 - 25 mg/dL LAB CHEMISTRY METHOD 11/03/2024 2:45 PM [facility] Creatinine 0.80 0.50 - 1.10 mg/dL LAB CHEMISTRY METHOD 11/03/2024 2:45 PM [facility] eGFR 83 >=60 mL/min/1. 73m2 LAB CHEMISTRY METHOD 11/03/2024 2:45 PM [facility] Comment:Calculation based on the??Chronic Kidney Disease Epidemiology Collaboration (CKD-EPI) equation refit??without adjustment for race. BUN/Creatinine Ratio 28.8 LAB CHEMISTRY METHOD 11/03/2024 2:45 PM [facility] Calcium 8.6 8.5 - 10.5 mg/dL LAB CHEMISTRY METHOD 11/03/2024 2:45 PM [facility] AST (SGOT) 20 10 - 42 unit/L LAB CHEMISTRY METHOD 11/03/2024 2:45 PM [facility] ALT (SGPT) 28 10 - 60 unit/L LAB CHEMISTRY METHOD 11/03/2024 2:45 PM [facility] Alkaline Phosphatase 72 42 - 121 unit/L LAB CHEMISTRY METHOD 11/03/2024 2:45 PM EST [facility] Total Protein 6.3 6.0 - 8.0 g/dL LAB CHEMISTRY METHOD 11/03/2024 2:45 PM EST [facility] Albumin 3.2 3.2 - 5.0 g/dL LAB CHEMISTRY METHOD 11/03/2024 2:45 PM EST [facility] Total Bilirubin 0.4 0.0 - 1.4 mg/dL LAB CHEMISTRY METHOD 11/03/2024 2:45 PM EST [facility] Blood Venous blood specimen / Unknown Venipuncture / Unknown 11/03/2024 2:02 PM EST 11/03/2024 2:10 PM EST Fernanda EATON LAB BLOOD ORDERABLES Performing Organization Address [facility]/ZIP Co de Phone Number [facility] [address] [place] [address], [place] [phone] * Protime-INR (11/03/2024 2:02 PM EST) [facility] Protime 12.0 10.6 - 13.9 sec LAB COAGULATION METHOD 11/03/2024 2:22 PM [facility] INR 1.0 LAB COAGULATION METHOD 11/03/2024 2:22 PM [facility] Blood Venous blood specimen / Unknown Venipuncture / Unknown 11/03/2024 2:02 PM EST 11/03/2024 2:10 PM EST Fernanda EATON LAB BLOOD ORDERABLES Performing Organization Address City/[facility]/ZIP Co de Phone Number [facility] [address] [place] [address], [place] [phone] * APTT (11/03/2024 2:02 PM EST) aPTT 29.6 24.1 - 39.3 sec LAB COAGULATION METHOD 11/03/2024 2:22 PM EST [facility] Blood Venous blood specimen / Unknown Venipuncture / Unknown 11/03/2024 2:02 PM EST 11/03/2024 2:10 PM EST Fernanda EATON LAB BLOOD ORDERABLES [facility] [address] [place] [address], * CT Angio Head/Neck Stroke wo and/or w Contrast (11/03/2024 1:42 PM EST) Anatomical Region Laterality Modality Head and Neck Computed Tomogra phy 11/03/2024 2:02 PM EST Impressions 11/03/2024 2:14 PM EST Neck CTA: Left vertebral artery occlusion with reconstitution distally. Brain CTA: No evidence of intracranial aneurysm, thrombosis or arterial occlusion. -------- FINAL REPORT -------- Dictated By: Dell Abraham Dictated Date: 11/03/2024 14:02 ET Assigned Physician: Dell Abraham Reviewed and Electronically Signed By: Dell Abraham Signed Date: 11/03/2024 14:14 ET Workstation ID: [id number] Transcribed By: Self Edit Transcribed Date: 11/03/2024 14:02 ET Narrative 11/03/2024 2:14 PM EST INDICATION: Left-sided weakness TECHNIQUE: CTA of the brain and neck performed with a total of 90 cc Isovue-370 administered intravenously without incident. Arterial phase imaging of the brain and neck and delayed phase imaging of the brain obtained. Axial, coronal and sagittal imaging reviewed including MIPS. 3D multiplanar reconstructions performed on a computer workstation. Scanner: [employer] 64slice VCT Dose reduction technique: ASIR (Adaptive statistical iterative reconstruction) and/or AEC (automated exposure control) Dose: total exam DLP 2640 mGY per cm COMPARISON: No prior studies are available for comparison. FINDINGS: Arterial phase: Aortic arch: Well-opacified with mild atherosclerotic changes. Widely patent arch vessels. Right carotid: Mild calcified plaque along the origin of the right common carotid artery without significant stenosis. Moderate calcified plaque along the proximal right ICA without significant stenosis. Remainder of the vessel is unremarkable. Left carotid: Mild plaque along the origin of the left common carotid artery. Vessels otherwise unremarkable. Mild calcified plaque along the origin of the left ICA without stenosis. Subclavian/vertebral: 65% stenosis along the origin of the right subclavian artery with moderate calcified plaque. Left hip and artery are widely patent. Mild calcified plaque along the origin of the right vertebral artery without significant stenosis. Actual artery normal in course and caliber. Nonvisualized origin as well as proximal left vertebral artery. Left vertebral artery reconstitutes at the C2-C3 level and is small in caliber relative to the right side. Intracranial vessels: Vertebral arteries join to form the basilar artery which is slightly small in caliber. Vessel terminates into posterior cerebral arteries bilaterally with small caliber patent left posterior communicating artery. Mild calcified plaque along the intracranial ICAs bilaterally. Patent bilateral A1 segments and anterior cerebral arteries. No definite anterior communicating artery opacified. Patent bilateral middle cerebral arteries. Delayed phase: Widely patent dural sinuses. CT neck: No cervical lymphadenopathy. Parotid, submandibular and thyroid glands are within normal limits. No parapharyngeal or retropharyngeal soft tissue swelling. Bony structures: Within normal limits for the patient's age. Lung apices demonstrate emphysematous changes. Partially imaged midline sternotomy likely from CABG procedure Procedure Note Dell Abraham MD - 11/03/2024 INDICATION: Left-sided weakness TECHNIQUE: CTA of the brain and neck performed with a total of 90 ccIsovue-370 administered intravenously without incident. Arterial phaseimaging of the brain and neck and delayed phase imaging of the brainobtained. Axial, coronal and sagittal imaging reviewed including MIPS. 3Dmultiplanar reconstructions performed on a computer workstation. Scanner: [employer] 64slice VCT Dose reduction technique: ASIR (Adaptive statistical iterativereconstruction) and/or AEC (automated exposure control) Dose: total exam DLP 2640 mGY per cm COMPARISON: No prior studies are available for comparison. FINDINGS: Arterial phase: Aortic arch: Well-opacified with mild atherosclerotic changes. Widelypatent arch vessels. Right carotid: Mild calcified plaque along the origin of the right commoncarotid artery without significant stenosis. Moderate calcified plaquealong the proximal right ICA without significant stenosis. Remainder ofthe vessel is unremarkable. Left carotid: Mild plaque along the origin of the left common carotidartery. Vessels otherwise unremarkable. Mild calcified plaque along theorigin of the left ICA without stenosis. Subclavian/vertebral: 65% stenosis along the origin of the rightsubclavian artery with moderate calcified plaque. Left hip and artery arewidely patent. Mild calcified plaque along the origin of the rightvertebral artery without significant stenosis. Actual artery normal incourse and caliber. Nonvisualized origin as well as proximal leftvertebral artery. Left vertebral artery reconstitutes at the C2-C3 leveland is small in caliber relative to the right side. Intracranial vessels: Vertebral arteries join to form the basilar arterywhich is slightly small in caliber. Vessel terminates into posteriorcerebral arteries bilaterally with small caliber patent left posteriorcommunicating artery. Mild calcified plaque along the intracranial ICAs bilaterally. Patentbilateral A1 segments and anterior cerebral arteries. No definite anteriorcommunicating artery opacified. Patent bilateral middle cerebral arteries. Delayed phase: Widely patent dural sinuses. CT neck: No cervical lymphadenopathy. Parotid, submandibular and thyroidglands are within normal limits. No parapharyngeal or retropharyngeal softtissue swelling. Bony structures: Within normal limits for the patient's age. Lung apices demonstrate emphysematous changes. Partially imaged midlinesternotomy likely from CABG procedure IMPRESSION: Neck CTA: Left vertebral artery occlusion with reconstitution distally. Brain CTA: No evidence of intracranial aneurysm, thrombosis or arterialocclusion. -------- FINAL REPORT -------- Dictated By: Dell Abraham Dictated Date: 11/03/2024 14:02 ET Assigned Physician: Dell Abraham Reviewed and Electronically Signed By: Dell Abraham Signed Date: 11/03/2024 14:14 ET Workstation ID: [id number] Transcribed By: Self Edit Transcribed Date: 11/03/2024 14:02 ET Fernanda [facility] CT PROCEDURES * ECG 12 lead (11/03/2024 1:23 PM EST) Ventricular Rate ECG 94 BPM GEMUSE Atrial Rate 94 BPM GEMUSE P-R Interval 130 ms GEMUSE QRS Duration 94 ms GEMUSE Q-T Interval 372 ms GEMUSE QTc 465 ms GEMUSE P Wave Upton 57 degrees GEMUSE R Upton -32 degrees GEMUSE T [place]pton 74 degrees GEMUSE ECG Interpretation Normal sinus rhythm Possible Left atrial enlargement Left axis deviation Septal infarct , age undetermined Abnormal ECG When compared with ECG of 03-NOV-2024 12:07, (unconfirmed) Premature ventricular complexes are no longer Present Septal infarct is now Present Confirmed by Ness DOSS JAMES ([id number]) on 11/03/2024 9:39:11 PM GEMUSE 11/03/2024 1:23 PM EST 11/03/2024 9:39 PM EST Fernanda EATON ECG ORDERABLES GEMUSE * PA CRITICAL CARE 30-74 MINUTES (11/03/2024 12:47 PM EST) Narrative Elijah Broderick MD - 11/03/2024 12:47 PM EST UMA Ryan ? 11/03/2024 ??9:22 PM Critical Care Performed by: UMA Ryan Authorized by: Elijah Broderick MD ?? Critical care provider statement: ??Critical care time (minutes): ??30 ??Critical care was necessary to treat or prevent imminent or life-threatening deterioration of the following conditions: ??MANAGER CT failure or compromise ??Critical care was time spent personally by me on the following activities: ??Examination of patient, ordering and performing treatments and interventions, ordering and review of laboratory studies, ordering and review of radiographic studies, review of old charts, re-evaluation of patient's condition, obtaining history from patient or surrogate, discussions with consultants and development of treatment plan with patient or surrogate Elijah Broderick MD IN CLINIC/BEDSIDE O RDERABLES * ECG-Annotated (11/03/2024) Provider Onjohn DIMAS ECG ORDERABLES * ECG-Annotated (11/03/2024) Provider Onbase MD ECG ORDERABLES documented in this encounter Visit Diagnoses Diagnosis Left facial numbness- Primary Disturbance of skin sensation Cerebrovascular accident (CVA), unspecified mechanism (CMS/HCC) documented in this encounter Administered Medications Inactive Administered Medications - up to 3 most recent administrations Medication Order MAR Action Action Date Dose Rate Site iopamidoL (ISOVUE-370) 370 mg iodine /mL (76 %) injection 90 mL 90 mL, intravenous, Once in imaging, Starting on Alba 11/03/24 at 1337, For 1 dose Given 11/03/2024 1:37 PM EST 90 mL sodium chloride 0.9 % flush 10 mL 10 mL, intravenous, Once, On Alba 11/03/24 at 1338, For 1 dose Given 11/03/2024 1:37 PM EST 10 mL documented in this encounter Active and Recently Administered Medications Times are shown in EST. Scheduled Medication Order 11/01/2024 11/02/2024 11/03/2024 acetaminophen (TYLENOL) tablet 1,000 mg 1,000 mg, oral, Once, On Alba 11/03/24 at 1654, For 1 dose 1942 (Incomplete - P rovider: Svetlana Carter, MARGARITA) iopamidoL (ISOVUE-370) 370 mg iodine /mL (76 %) injection 90 mL (COMPLETED) 90 mL, intravenous, Once in imaging, Starting on Alba 11/03/24 at 1337, For 1 dose 1337 (Given - Provid er: Nayeli Mandel) sodium chloride 0.9 % flush 10 mL (COMPLETED) 10 mL, intravenous, Once, On Alba 11/03/24 at 1338, For 1 dose 1337 (Given - Provid er: Nayeli Mandel) documented in this encounter Orders Medications Ordered That Ubaldo ht Not Have Been Administered Count Last Ordered Date First Ordered Date acetaminophen (TYLENOL) tablet 1,000 mg 1 0 11/03/2024 documented in this encounter Additional Health Concerns Assessment Noted Time PHQ-9 Depression Total Score: 1 10/25/19 2:42 PM EST documented as of this encounter Care Teams Gardening Supervisor Relationship Specialty Start Date End Date Sheree Strong FNP [address] [place] [id number] PCP - General Nurse Practitioner 10/24/24 documented as of this encounter
--- OUTSIDE RECORDS SUMMARY | 2024-11-11 13:46 | XMS_ITS | Encounter Summary ---
Author Organization [facility] Address [address] [place] [phone] Phone Care Team Providers Care Wildlife Biostation Research Ecologist Name Role Phone Kenny Kruse Primary Care Provider Encounter Details Date Type Department Care Team (Late st Contact Info) Description 12/05/2019 Hospital/ED/SNF/HH Visit [facility] [address] [place] [address] Provider, MD Maria Isabel [address] [place] [id number] Social History Tobacco Use Types Packs/Day Years Used Date Smoking Tobacco: Never Assessed Sex and Gender Information Value Date Recorded Sex Assigned at Not on file Gender Identity Not on file Sexual Orientation Not on file documented as of this encounter Plan of Treatment Not on file documented as of this encounter Visit Diagnoses Not on filedocumented in this encounter Care Teams Wildlife Biostation Research Ecologist Relationship Specialty Start Date End Date Kenny Kruse [address] [place] [address] PCP - General Family Medicine 08/20/23 documented as of this encounter
--- OUTSIDE RECORDS SUMMARY | 2024-11-11 13:47 | XMS_ITS | Encounter Summary ---
Demographics Address [address] [place] [address] Work Phone Email Address Preferred Language en Marital Status Mandaeism Affiliation Unknown Race Other Race Ethnic Group or Author Organization [employer] Address [address] [facility] [address] [place] [address] Care Team Providers Care Fabricating Machine Operator Name Role Phone SyedSheree anand LISHA Primary Care Provider [phone] Encounter Details Date Type Department Care Team (Latest Contact Info) Description 11/09/2024 9:15 AM EST Procedure Visit [facility] [address] [place], [place] [phone] Dori Rhodes FNP [address], [place] [phone] Routine cervical smear (Primary Dx); Urinary incontinence, unspecified type; Prediabetes; Abnormal breast exam; Normal pelvic exam; Menopausal disorder Social History Tobacco Use Types Packs/Day Years Used Date Smoking Tobacco: Former Cigarettes Q uit: 1978 Smokeless Tobacco: Never Depression Answer Date Recorded [...] Pests such as bugs, ants, or mice;Lead Sayre or Pipes;Inadequate heat 09/06/2024 Food Insecurity Answer [...] PM EDT documented as of this encounter Last Filed Vital Signs Vital Sign Reading Time Taken Comments Blood Pressure 142/90 11/09/2024 9:25 AM EST Pulse 79 11/09/2024 9:25 AM EST Temperature 36.7 ??C (98 ??F) 11/09/2024 9:25 AM EST Respiratory Rate 20 11/09/2024 9:25 AM EST Oxygen Saturation - - Inhaled Oxygen Concentration - - Weight 50.9 kg (112 lb 4 oz) 11/09/2024 9:25 AM EST Height 152.4 cm (5') 11/09/2024 9:25 AM EST Body Mass Index 21.92 11/09/2024 9:25 AM EST documented in this encounter Miscellaneous Notes * Assessment & Plan Note - BISHOP Rodriguez - 11/10/2024 4:23 PM ESTAssociated Problem(s): Menopausal disorder Hot flashes and night sweats Hormone replacement therapy contraindicated, offered trial of acupuncture to start. Will consider consider non hormonal medications if acupuncture is not helpful * Assessment & Plan Note - BISHOP Rodriguez - 11/10/2024 1:13 PM ESTAssociated Problem(s): Abnormal breast exam Breast examination Bilateral breast symmetrical soft and [...] to rebook your missed mammogram and ultra documented in this encounter Plan of Treatment Upcoming Encounters Date Type Department Care Team (Late st Contact Info) Description 11/17/2024 10:00 AM EST Office Visit [facility] [address] [place] [address] Name, MD Dante [address] [place] [address] 02/16/2025 2:00 PM EDT Office Visit [facility] [address] [place] [address] Martine Benavidez, OD [address] [place] [address] Scheduled Orders Name Type Priority Associated Diagnoses Orde r Schedule Pap Smear Pathology and Cytology Routine Routine cervical smear Ordered: 11/09/2024 documented as of this encounter Procedures Procedure Name Priority Date/Time Associated Diagnosis Comments CULTURE, URINE, ROUTINE Routine 11/09/2024 11:30 AM EST Urinary incontinence, unspecified type POCT URINALYSIS DIPSTICK Routine 11/09/2024 11:14 AM EST Urinary incontinence, unspecified type POCT GLUCOSE Routine 11/09/2024 9:32 AM EST Prediabetes documented in this encounter Results * Culture, Urine, Routine (11/09/2024 11:30 AM EST) Urine Urine specimen obtained by clean catch procedure / Unknown 11/09/2024 11:30 AM EST 11/09/2024 1:08 PM EST Comment:UACC Narrative [facility] - 11/10/2024 10:44 AM EST Urine Culture No growth. Specimen Source: Urine clean catch Compliance [facility] MICROBIOLOGY - GENERAL ORD ERABLES Final Result [facility] [address] [place] [phone] * POCT Urinalysis (11/09/2024 11:14 AM [...] Date Urine 11/09/2024 11:1 4 AM EST [facility] TEST ENTER/EDIT ORDERABLES Final Result * POCT Glucose (11/09/2024 9:32 AM EST) Glucose Blood, POC 101 60 - 200 mg/dL QC Media Lot # [id number] Lot# Expiration Date ,025 Blood Capillary blood specimen / Unknown 11/09/2024 9:32 AM EST [facility] POINT OF CARE TEST ENTER/EDIT ORDERABLES Final Result documented in this encounter Visit Diagnoses Diagnosis Routine cervical smear- Primary Screening for malignant neoplasm of the cervix Urinary incontinence, unspecified type Prediabetes Other abnormal glucose Abnormal breast exam Other sign and symptom in breast Normal pelvic exam Menopausal disorder Unspecified menopausal and postmenopausal disorder documented in this encounter Additional Health Concerns Assessment Noted Time PHQ-9 Depression Total Score: 17 024 2:44 PM EST documented as of this encounter Care Teams Fabricating Machine Operator Relationship Specialty Start Date End Date Sheree Strong NP [address] [place] [id number] PCP - General Family Medicine 09/06/24 documented as of this encounter
--- OUTSIDE RECORDS SUMMARY | 2024-11-11 13:47 | XMS_ITS | Encounter Summary ---
Demographics Address [address] [place] [address] Mobile Phone Preferred Language en Marital Status Christianity Affiliation Unknown Race Other Race Ethnic Group or Author Organization [employer] Address [address] [place] [address] Care Team Providers [employer] Server Name Role Phone Sheree Strong BISHOP Primary Care Provider [phone] Reason for Referral * Consultation (Routine) - Authorized Specialty Diagnoses / Procedures Referred By Jackelyn tobin Referred To Contact Speech Pathology / Speech Therapy Diagnoses Cerebrovascular accident (CVA), unspecified mechanism (CMS/HCC) Juliann Man DO [address] [place] [address] [facility] Speech Therapy [address] [place] [phone] Referral ID Status Reason Start Date Expiration Date Visits Requested Visits Authorized [id number] Authorized Specialty Services Required 10/31/2024 10/31/2025 35 35 * Consultation (Routine) - Authorized Specialty Diagnoses / Procedures Referred By Jackelyn tobin Referred To Contact Physical Therapy Diagnoses Cerebrovascular accident (CVA), unspecified mechanism (CMS/HCC) Juliann Man DO [address] [place] [address] [facility] Physical Therapy [address] [address] Referral ID Status Reason Start Date Expiration Date Visits Requested Visits Authorized [id number] Authorized Specialty Services Required 10/31/2024 10/31/2025 20 20 Reason for Visit * Auth/Cert (Routine) Specialty Diagnoses / Procedures Referred By Jackelyn tobin Referred To Contact Diagnoses stroke Procedures INPATIENT REHAB FACILITY PROSPECTIVE PAYMENT SYSTEM ([facility]) Juliann Man DO [address] [facility] [place] [address] [facility] Inpatient Rehab [address] [place] [address] Referral ID Status Reason Start Date Expiration Date Visits Re quested Visits Authorized [id number] 1 1 Encounter Details Date Type Department Care Team (Latest Contact Info) Description 10/25/2024 1:27 PM EST - 11/08/2024 11:35 AM EST Hospital Encounter [facility] Inpatient Rehab [address] [place] [id number] Juliann Man DO [address] [place] [address] Cerebrovascular accident (CVA), unspecified mechanism (CMS/HCC) (Primary Dx) Discharge Disposition: Home or Self Care Social [...] Sign Reading Time Taken Comments Blood Pressure 109/75 11/08/2024 9:00 AM EST Pulse 86 11/08/2024 9:00 AM EST Temperature 36.4 ??C (97.6 ??F) 11/08/2024 9:00 AM ES T Respiratory Rate 16 11/08/2024 9:00 AM EST Oxygen Saturation 100% 11/08/2024 9:00 AM EST Inhaled Oxygen Concentration - - Weight 51.4 kg (113 lb 6.4 oz) 11/05/2024 9:00 A M EST Height - - Body Mass Index 20.09 11/03/2024 12:45 PM EST documented in this encounter Discharge Summaries * Juliann Man, DO - 11/08/2024 7:28 AM EST Images from the original note were not included. PHYSICAL MEDICINE AND REHABILITATION Discharge Summary Patient Name: Estephania Bill Date of : 1960 Sex: Female Admit Date/Time: 10/25/2024 1:27 PM Discharge Date: 11/08/24 HPI: From H&P: This is a 63-year-old female past medical history significant for coronary artery disease status post CABG in 2019 on aspirin and Plavix, HFrEF EF 30-35% which improved to 60%, bilateral renal stenosis, hypertension, hyperlipidemia, COPD, anxiety, who presented to [facility] emergency department with intermittent left-sided chest pain radiating down to left upper extremity associated with nausea, vomiting, shortness of breath. While she was in the emergency department she had some difficulty opening her left eye, left-sided facial numbness and tingling, weakness to left upper extremity and developed a frontal headache. NIHSS 5 stroke alert activated and neurology consulted and recommended administering TNK ( at 1815) she was then admitted to the NCCU. CThead was negative and CTA H/N showed L vert origin narrowing vs occlusion). Neurology recommended starting statin. She was downgraded from the NCCU on 10/20 and monitored for a few days and then DC here for debelity s/p CVA for PT/OT/APARTMENT LEASING AGENT and nursing care HOSPITAL COURSE: #Acute CVA #Left Hemiparesis -s/p TNK 10/19/2024 -Aspirin 81 mg daily -Plavix 75 mg daily -Atorvastatin 40 mg nightly -continued therapies -Follow up with Neurology stroke clinic after discharge #Altered mental status #Left facial and LUE twitching -Symptoms occurred temporarily on 11/03, now resolved -MRI brain 11/03 showed no acute abnormality -EEG completed on 11/07 to rule out seizure activity given episode of twitching on 11/03 was within normal limits -resolved #HFpEF #CAD s/p CABG in 2018 #Hypertension -Entresto 97-103 mg 1 tab BID --> decreased to 24-26mg 1 tab BID with holding parameters on 10/26 due to hypotension -Carvedilol 25 mg BID w/ meals --> decreased to 12.5mg BID w/meals on 10/26 due to hypotension --> discontinued on 10/27 due to hypotension #Hyperlipidemia -Atorvastatin 40 mg nightly #Prediabetes -A1C 6.1 on 10/26 -Diabetic diet -ISS and POCs discontinued on 11/07 given that POCs well controlled without need for intervention #Chronic Pain #Pain management -Duloxetine 60mg daily -Gabapentin 800 mg Q8H --> decreased to 600mg Q8H on 10/26 due to creatinine clearance --> decreased to 400mg Q8H on 10/28 due to hypotension -Acetaminophen 1000mg Q8H PRN pain #Right shoulder pain -Xray right shoulder 10/26 negative -s/p right shoulder intra-articular steroid injection on 10/28 -Lidocaine patch daily -heat/ice PRN -Oxycodone 2.5mg Q4H PRN #Anxiety -Trazodone 150 mg nightly #GERD -Pantoprazole 40mg daily #Anemia -Ferrous sulfate 325mg daily #Bowel management -Colace 100mg BID -Senna 2 tabs QHS DVTP: Aspirin 81 mg po daily and Plavix 75 mg po daily w/ compression device PHYSICAL EXAMINATION: Vitals: 11/07/24 1019 11/07/24 1551 11/07/24 1555 11/08/24 0421 BP: 127/70 (!) 164/114 (!) 141/91 116/77 BP Location: Left arm Right arm Right arm Patient Position: Sitting Pulse: 84 82 83 93 Resp: Temp: 36.3 ??C (97.3 ??F) 36.7 ??C (98.1 ??F) TempSrc: Oral SpO2: 100% 100% 100% 99% Weight: General: Alert, in no acute cardiopulmonary distress. Mental Status: Oriented to person, place and time. Normal affect. Head: Normocephalic. Eyes: Extraocular muscles grossly intact. Ear, Nose and Throat: Oropharynx clear, mucous membranes moist. Ears and nose without masses, lesions or deformities. Neck: Supple, Trachea midline. Respiratory: Clear to auscultation and percussion. No wheezing, rales or rhonchi. Cardiovascular: Heart sounds normal. No thrills. Regular rate and rhythm, no murmurs, rubs or gallops. Gastrointestinal: Abdomen soft, non-tender, non-distended. Normal bowel sounds. Neurologic: Cranial nerves II-XII grossly intact. Deep tendon reflexes +2 bilaterally. Negative Hoffmans sign bilaterally. Flexor plantar response bilaterally. Negative clonus bilaterally. Moves all extremities spontaneously. Skin: No rashes or lesions. No petechiae or purpura. No edema. Musculoskeletal: No cyanosis or clubbing. No gross deformities. Right shoulder AROM without pain today. No erythema, warmth, or edema of the right shoulder appreciated. Strength 5/5 throughout right upper and lower extremities. Strength 4+/5 throughout left upper and lower extremities. LABS: Lab Results Component Value Date WBC 6.9 11/03/2024 RBC 4.60 11/03/2024 HGB 11.0 (L) 11/03/2024 HCT 36.1 11/03/2024 MCV 79.2 11/03/2024 MCHC 30.5 (L) 11/03/2024 RDW 17.0 (H) 11/03/2024 PLT 224 11/03/2024 MPV 10.1 11/03/2024 NRBC 0.0 11/03/2024 DIFF Lab Results Component Value Date LYMPHOPCT 36.7 11/03/2024 NEUTROABS 3.43 11/03/2024 LYMPHSABS 2.52 11/03/2024 MONOABS 0.68 11/03/2024 EOSABS 0.14 11/03/2024 BASOSABS 0.02 11/03/2024 IMMGRANABS 0.08 (H) 11/03/2024 RETIC No results found for: RETIC , RETICCTPCT Lab Results Component Value Date NA 134 11/03/2024 K 4.1 11/03/2024 CL 102 11/03/2024 CO2 27 11/03/2024 GLUCOSE 96 11/07/2024 BUN 23 11/03/2024 CREATININE 0.80 11/03/2024 CALCIUM 8.6 11/03/2024 PROT 6.3 11/03/2024 ALBUMIN 3.2 11/03/2024 BILITOT 0.4 11/03/2024 AST 20 11/03/2024 ALT 28 11/03/2024 MG 1.9 11/03/2024 ALKPHOS 72 11/03/2024 EGFR 83 11/03/2024 IMAGING: MR Brain wo Contrast [[id number]] Collected: 11/03/241929 Order Status: Completed Updated: 11/03/241929 Narrative: MR Brain without gadolinium Comparison: None Findings: [...] reflect acute sinusitis. No focal bone lesion. Impression: No acute intracranial abnormality. Additional findings as described. This document has been electronically signed by: Bryan Chadwick MD on 11/03/2024 19:30:07 XR Chest 1 View [[id number]] Collected: 11/03/241622 Order Status: Completed Updated: 11/03/241627 Narrative: INDICATION: Shortness of breath FINDINGS: Single portable AP view of the chest obtained. No prior studies available for comparison. Lung ortez are clear. Heart normal in size and shape. Midline sternotomy noted with multiple mediastinal clips consistent with CABG procedure. Bony structures are grossly intact and normal for the patient's age. Impression: No evidence of active pulmonary disease. [id number] -------- FINAL REPORT -------- Dictated By: Dell Abraham Dictated Date: 11/03/2024 16:23 ET Assigned Physician: Dell Abraham Reviewed and Electronically Signed By: Dell Abraham Signed Date: 11/03/2024 16:23 ET Workstation ID: [id number] Transcribed By: Self Edit Transcribed Date: 11/03/2024 16:[address] Angio Head/Neck Stroke wo and/or w Contrast [[id number]] Collected: 11/03/24 1402 Order Status: Completed Updated: 11/03/24 1420 Narrative: INDICATION: Left-sided weakness TECHNIQUE: CTA of the brain and neck performed with a total of 90 cc Isovue-370 administered intravenously without incident. Arterial phase imaging of the brain and neck and delayed phase imaging of the brain obtained. Axial, coronal and sagittal imaging reviewed including MIPS. 3D multiplanar reconstructions performed on a computer workstation. Scanner: [employer] 64slice VCT Dose reduction technique: ASIR (Adaptive [...] Mild calcified plaque along the origin of theright vertebral artery without significant stenosis. Actual artery normal in course and caliber. Nonvisualized origin as well as proximal left vertebral artery. Left vertebral artery reconstitutes atthe C2-C3 level and is small in caliber relative to the right side. Intracranial vessels: Vertebral arteries join to form the basilar artery which is slightly small incaliber. Vessel terminates into posterior cerebral arteries bilaterally [...] changes. Partially imaged midline sternotomy likely from CABGprocedure Impression: Neck CTA: Left vertebral artery occlusion with reconstitution distally. Brain CTA: No evidence of intracranial aneurysm, thrombosis or arterial occlusion. -------- FINAL REPORT -------- Dictated By: Dell Abraham Dictated Date: 11/03/2024 14:02 ET Assigned Physician: Dell Abraham Reviewed and Electronically Signed By: Dell Abraham Signed Date: 11/03/2024 14:14 ET Workstation ID: [id number] Transcribed By: Self Edit Transcribed Date: 11/03/2024 14:[address] Head Stroke wo Contrast [[id number]] Collected: 11/03/24 1335 Order Status: Completed Updated: 11/03/24 1343 Narrative: INDICATION: Left-sided weakness and facial numbness Technique: Axial images were obtained from the skull base to the vertex without contrast enhancement. Scanner: [employer] 64 slice VCT Dose reduction technique: ASIR (Adaptive statistical iterative reconstruction) Dose: total exam DLP 808 mGY per cm Comparison: No prior studies available for comparison. FINDINGS: Intracranial contents: No acute intracranial hemorrhage, midline shift or mass- effect. The ventricles, sulci, sylvian fissures and basilar cisterns are symmetric and normal in size and shape for the patients age. No abnormal intra or extra-axial fluid collections. 8 mm x 6 mm low-attenuation oval focus within the left basal ganglia likely represents a Virchow-Ajay space. Bony structures/soft tissues: Within normal limits. Sinuses: Paranasal sinuses demonstrate small air-fluid level within the right maxillary sinus with minimal dependent attenuation within the left sphenoid sinus. Mastoid air cells are well aerated. Impression: No evidence of acute intracranial process on noncontrast head CT. A Critical Document Only message has been documented for the office of DAFNE BECK in the [employer] system on 11/03/2024 1:38 PM, Message ID [id number]. -------- FINAL REPORT -------- Dictated By: Dell Abraham Dictated Date: 11/03/2024 13:35 ET Assigned Physician: Dell Abraham Reviewed and Electronically Signed By: Dell Abraham Signed Date: 11/03/2024 13:38 ET Workstation ID: [id number] Transcribed By: Self Edit Transcribed Date: 11/03/2024 13:35 ET XR Shoulder 2+ Views Right [[id number]] Collected: 10/26/24 1424 Order Status: Completed Updated: 10/26/24 1430 Narrative: INDICATION: Shoulder pain FINDINGS: Minimum of 2 views of the right shoulder were obtained. No prior studies available for comparison. No fracture or dislocation. No radiopaque foreign body or periosteal reaction is noted. No significant soft tissue abnormality. Mild degenerative changes. Impression: No shoulder fracture or dislocation. [id number] -------- FINAL REPORT -------- Dictated By: Dell Abraham Dictated Date: 10/26/2024 14:24 ET Assigned Physician: Dell Abraham Reviewed and Electronically Signed By: Dell Abraham Signed Date: 10/26/2024 14:25 ET Workstation ID: [id number] Transcribed By: Self Edit Transcribed Date: 10/26/2024 14:24 ET DISCHARGE MEDICATIONS: Your medication list START taking these medications Instructions Last Dose Given Next Dose Due gabapentin 400 mg capsule Commonly known as: NEURONTIN Replaces: gabapentin 800 mg tablet Take 1 capsule (400 mg total) by mouth every 8 (eight) hours. lidocaine 4 % patch Apply 1 patch topically 1 (one) time each day. Right shoulder pain. oxyCODONE 5 mg immediate release tablet Commonly known as: ROXICODONE Take 0.5 tablets (2.5 mg total) by mouth 2 (two) times a day if needed for severe pain for up to 7 days. Max Daily Amount: 5 mg senna 8.6 mg tablet Commonly known as: SENOKOT Take 2 tablets (17.2 mg total) by mouth at bedtime. CONTINUE taking these medications Instructions Last Dose Given Next Dose Due aspirin 81 mg chewable tablet Chew 1 tablet (81 mg total) 1 (one) time each day. atorvastatin 40 mg tablet Commonly known as: LIPITOR Take 1 tablet (40 mg total) by mouth at bedtime. budesonide-formoteroL 80-4.5 mcg/actuation inhaler Commonly known as: SYMBICORT Inhale 2 puffs by mouth 2 (two) times a day. Rinse mouth with water after use to reduce aftertaste and incidence of candidiasis. Do not swallow. clopidogreL 75 mg tablet Commonly known as: PLAVIX Take 1 tablet (75 mg total) by mouth 1 (one) time each day. docusate sodium 100 mg capsule Commonly known as: COLACE Take 1 capsule (100 mg total) by mouth 2 (two) times a day. DULoxetine [address] capsule Commonly known as: CYMBALTA Take 1 capsule (60 mg total) by mouth 1 (one) time each day. Do not crush or chew. ferrous sulfate 325 mg (65 mg elemental iron) tablet Take 1 tablet (325 mg total) by mouth 1 (one) time each day. pantoprazole 40 mg EC tablet Commonly known as: PROTONIX Take 1 tablet (40 mg total) by mouth 1 (one) time each day before breakfast. Do not crush, chew, orsplit. traZODone 150 mg tablet Commonly known as: DESYREL Take 1 tablet (150 mg total) by mouth at bedtime. STOP taking these medications acetaminophen 500 mg tablet Commonly known as: TYLENOL albuterol HFA 90 mcg/actuation inhaler Commonly known as: PROAIR HFA ; PROVENTIL HFA ; VENTOLIN HFA amLODIPine 10 mg tablet Commonly known as: NORVASC carvediloL 25 mg tablet Commonly known as: COREG Entresto 97-103 mg per tablet Generic drug: sacubitriL-valsartan gabapentin 800 mg tablet Commonly known as: NEURONTIN Replaced by: gabapentin 400 mg capsule Where to Get Your Medications These medications were sent to [facility] [address] [facility] [address] [facility] [address] aspirin 81 mg chewable tablet atorvastatin 40 mg tablet clopidogreL 75 mg tablet docusate sodium 100 mg capsule DULoxetine [address] capsule ferrous sulfate 325 mg (65 mg elemental iron) tablet gabapentin 400 mg capsule lidocaine 4 % patch oxyCODONE 5 mg immediate release tablet pantoprazole 40 mg EC tablet senna 8.6 mg tablet traZODone 150 mg tablet DISCHARGE RECOMMENDATIONS: Code Status: Full Code - Default Diet: Regular consistency with thin liquids. Diabetic diet. Cardiac diet. Weight Bearing Precautions: None. Weight bearing as tolerated. Wound Care Instructions: Skin intact. No dressings needed. Patient/PCP Follow Up Instructions: Patient will need to follow up with Neurology after discharge for further management of stroke. Antihypertensives discontinued during admission due to orthostasis. Patient will need to follow up with PCP after discharge for further management of hypertension. Patient will need to follow up with PCP after discharge for referral to Orthopedics for further management of right shoulder pain. DISCHARGE FOLLOW UP APPOINTMENTS: NOV 16 PT EVALUATION with Lore Davis PT Thursday 2:30 PM (Arrive by 2:15 PM) [address] [phone] Go to Name MD Dante Oct 10:00am Hospital Follow Up Appointment [facility] transportation has been coordinated for you. 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 [address] [phone] NOV 28 PT TREATMENT with Deysi Gil PT Thursday 12:45 PM Please bring any insurance information and a copayment if required by your insurance company. [address] [phone] NOV 30 APARTMENT LEASING AGENT EVALUATION with Alea S Thursday 10:30 AM (Arrive by 10:15 AM) [facility] [address] [phone] DEC 07 APARTMENT LEASING AGENT TREATMENT with Alea S Thursday 10:45 AM Please bring any insurance information and a copayment if required by your insurance company. [facility] [address] [phone] DEC 14 APARTMENT LEASING AGENT TREATMENT with Alea S Thursday 10:45 AM Please bring any insurance information and a copayment if required by your insurance company. [facility] [address] [phone] Go to Berry Christiansen MD Thursday Specialty: Neurology 8:30am If you need transportation to appointment, please call [facility] to schedule at least 3-5 buisness days prior to appointment. * Jerry Cannon LCSW - 11/01/2024 9:30 AM EST [facility] Transportation You have been registered for [facility] transportation. To book a ride: Please call between 7:00AM to 7:00PM at least 3 week days before your appointment Call documented in this encounter Discharge Instructions * Discharge Instructions* Juliann Man DO - 11/08/2024 7:35 AM EST Code Status: Full Code - Default Diet: Regular consistency with thin liquids. Diabetic diet. Cardiac diet. Weight Bearing Precautions: None. Weight bearing as tolerated. Wound Care Instructions: Skin intact. No dressings needed. Patient/PCP Follow Up Instructions: Patient will need to follow up with Neurology after discharge for further management of stroke. Antihypertensives discontinued during admission due to orthostasis. Patient will need to follow up with PCP after discharge for further management of hypertension. Patient will need to follow up with PCP after discharge for referral to Orthopedics for further management of right shoulder pain. * Attachments The following attachments cannot be sent through Care Everywhere. * Sennosides - Retirement Oral Tablet (SENNOSIDES - ORAL) (Polish) * Gabapentin Oral Capsule (GABAPENTIN - ORAL) (Polish) * Lidocaine Medicated Patch (LIDOCAINE PATCH - TOPICAL) (Polish) * Stroke: Know the Signs and BE FAST: Video (Polish) * Fall Prevention (Polish) * Oral Rehydration (Polish) * Antiplatelets After Ischemic Stroke: General Info (Polish) * Statins (Polish) documented in this encounter Medications at Time [...] mouth at bedtime. 30 each 11/08/2024 12/08/2024 documented as of this encounter Ordered Prescriptions Prescription Sig Dispensed Refills Start Date End Da te senna (SENOKOT) 8.6 mg tablet Take 2 tablets (17.2 mg total) by mouth at bedtime. 60 each 11/08/2024 12/08/2024 oxyCODONE (ROXICODONE) 5 mg immediate release tablet Take 0.5 tablets (2.5 mg total) by mouth 2 (two) times a day if needed for severe pain for up to 7 days. Max Daily Amount: 5 mg 7 tablet 11/08/2024 11/15/2024 lidocaine 4 % patch Apply 1 patch topically 1 (one) time each day. Right shoulder pain. 30 each 11/08/2024 12/08/2024 traZODone (DESYREL) 150 mg tablet Take 1 tablet (150 mg total) by mouth at bedtime. 30 each 11/08/2024 12/08/2024 pantoprazole (PROTONIX) 40 mg EC tablet Take 1 tablet (40 mg total) by mouth 1 (one) time each day before breakfast. Do not crush, chew, or split. 30 each 11/08/2024 12/08/2024 gabapentin (NEURONTIN) 400 mg capsule Take 1 capsule (400 mg total) by mouth every 8 (eight) hours. 90 each 11/08/2024 12/08/2024 ferrous sulfate 325 mg (65 mg elemental iron) tablet Take 1 tablet (325 mg total) by mouth 1 (one) time each day. 30 each 11/08/2024 12/08/2024 DULoxetine (CYMBALTA) [address] capsule Take 1 capsule (60 mg total) by mouth 1 (one) time each day. Do not crush or chew. 30 each 11/08/2024 12/08/2024 docusate sodium (COLACE) 100 mg capsule Take 1 capsule (100 mg total) by mouth 2 (two) times a day. 60 each 11/08/2024 12/08/2024 clopidogreL (PLAVIX) 75 mg tabletIndications:cerebra l thromboembolism prevention Take 1 tablet (75 mg total) by mouth 1 (one) time each day. 30 each 11/08/2024 12/08/2024 atorvastatin (LIPITOR) 40 mg tablet Take 1 tablet (40 mg total) by mouth at bedtime. 30 each 11/08/2024 12/08/2024 aspirin 81 mg chewable tabletIndications:prevent ion of cerebrovascular accident Chew 1 tablet (81 mg total) 1 (one) time each day. 30 each 11/08/2024 12/08/2024 documented in this encounter Discharge Disposition Disposition Code Departure Means Destination Comment s Home or Self Care documented in this encounter Progress Notes * Carol Martínez RN - 11/08/2024 11:45 AM EST 11:30 Patient for discharge this am. Pt son bedside. Reviewed discharge instructions with pt and son. Provided handouts on Senna, Lidocaine patch, Gabapentin medications, reviewed with pt need for adequate hydration, constipation management, Stroke signs and symptoms, Antiplatelet medications handout provided, No driving, reviewed pain med management with Oxycodone, explained 2.5 mg ( 1/2 tab of 5mg) pill splitter provided to pt, instructed pt on how to use device. Instructed pt to be cautious with pill splitter and medications if children and pets in the house to prevent accidental injuries. Reviewed with pt respiratory inhaler at home prescribed. Reinforced with pt to apply Lidocaine patch to right shoulder in am and remove at bedtime. Suggested to pt to bring Discharge handout with [facility] and physicians office visit. Patient in w/c, discharged to front entrance by PCT Oz and pt family member. * Carol Martínez RN - 11/08/2024 10:47 AM EST Patient experience frequent stools on 11/05/2024, pt reported regular stool on 11/06/2024 * UMA Saez - 11/08/2024 9:39 AM EST Images from the original note were not included. JUAN CARLOS PROGRESS NOTE Date: 11/08/2024 Author: UMA Saez Patient ID: Estephania Bill is a 63 y.o. female : 1960 MR#: [id number] SUBJECTIVE Subjective Improved left hemiparesis back to baseline No further facial spasm. she denies any visual impairments Pt eating and drinking well She denies any bowel or bladder issues No Fever no chills no fatigue ROS Constitutional :no fever chills , appetite fair, sleeping well HEENT: denies headaches Respiratory: denies shortness of breath, coughing or wheezing Cardiac: denies chest pain, palpitations, : No abd pain, no N/V. Genitourinary: denies any dysuria frequency urgency Musculoskeletal: No joint pain ,back pain Allergies Patient has no known allergies. Current Medications: aspirin, 81 mg, oral, Daily atorvastatin, 40 mg, oral, Nightly budesonide, 0.5 mg, nebulization, Daily And formoterol, 20 mcg, nebulization, BID clopidogreL, 75 mg, oral, Daily docusate sodium, 100 mg, oral, BID DULoxetine, 60 mg, oral, Daily ferrous sulfate, 325 mg, oral, Daily gabapentin, 400 mg, oral, q8h SUNIL lidocaine, 1 patch, Topical, Daily pantoprazole, 40 mg, oral, q AM AC senna, 2 tablet, oral, Nightly traZODone, 150 mg, oral, Nightly PRN medications: acetaminophen, albuterol, magnesium hydroxide, oxyCODONE OBJECTIVE Vitals: 11/07/24 1551 11/07/24 1555 11/08/24 0421 11/08/24 0900 BP: (!) 164/114 (!) 141/91 116/77 109/75 BP Location: Left arm Right arm Right arm Right arm;Upper Patient Position: Sitting Lying Pulse: 82 83 93 86 Resp: Temp: 36.3 ??C (97.3 ??F) 36.7 ??C (98.1 ??F) TempSrc: Oral SpO2: 100% 100% 99% 100% Weight: PHYSICAL EXAM General: AAO NAD HEENT: Pupils reactive, extraocular movements intact lungs CTAB no wheezing or crackles noted heart regular rate and rhythm, no murmur or rubs abdomen soft nontender nondistended positive bowel sounds Musculoskeletal: No gross deformity to joints extremities without edema, erythema or calf tenderness neuro: [id number] at recent baseline no facial droop no speech issues no ortez intact,no tremors or fasiculations skin: no rashes or lesions. psych: mood stable appearing LABS HEMATOLOGY Lab Results Component Value Date WBC 6.9 11/03/2024 HGB 11.0 (L) 11/03/2024 HCT 36.1 11/03/2024 MCV 79.2 11/03/2024 PLT 224 11/03/2024 CHEMISTRY Lab Results Component Value Date GLUCOSE 96 11/07/2024 NA 134 11/03/2024 K 4.1 11/03/2024 CO2 27 11/03/2024 CL 102 11/03/2024 BUN 23 11/03/2024 CREATININE 0.80 11/03/2024 EGFR 83 11/03/2024 CALCIUM 8.6 11/03/2024 MG 1.9 11/03/2024 ANIONGAP 5 11/03/2024 Imaging: ASSESSMENT & PLAN This is a 63-year-old female with a history of coronary artery disease status post CABG, CVA with residual left-sided hemiparesis, PAD/PVD who presented to [facility] with chest pain radiating down left arm. [...] mitral regurgitation. History of noncompliance with her antiplatelets- Resumed antiplatelets, statin,BP meds- Norvasc Coreg Entresto follow-up stroke clinic after discharge at [facility] Treatment Per rehab team Acute on Chronic residual left-sided weakness from prior CVA 11/04-status post ER evaluation on 11/03 for left-sided weakness facial numbness. -CT of the head no evidence of acute infarct. MRI of the brain no acute findings. CTA neck and headleft vertebral occlusion-known -EKG no evidence of arrhythmia She was transferred back to rehab. EEG no evidence of seizure Resolved facial fasciculations isolated to recent event Prolactin magnesium within normal limits Hypertension Patient with persistent low soft BPs did not tolerate BP medications Coreg 25 mg reduce 6.25 bid --> d/ c Norvasc 10 mg -DC Entresto -now DC'd Follow-up with PCP/cardiology outpatient for ongoing monitoring History of CAD/history of CABG Ischemic cardiomyopathy, repeat echo EF of 60% Presented to the hospital with chest pain negative cardiac workup Echocardiogram technically difficult study - LV function appears grossly normal. See above. She was recommended for Entresto although this has been Dc'd due to persisent low BP follow-up with cardiology History of PVD/PAD History of renal artery stenosis History of bilateral renal stents continue Plavix aspirin statin On gabapentin for chronic pain prediabetes/diabetes A1c 6.1 Not on jardiance Monitor glucose POC's 90-1 09 Dc SSI DC diabetic orders/FS Hyperlipidemia Statin 40 mg LDL 46 Follow-up with PCP outpatient setting to monitor lipid panel COPD Continue with inhalers Pulmicort, perforomist, albuterol as needed No evidence of exacerbation Chronic pain Continue with gabapentin 400 3 times dailyv Duloxetine 60 mg History of insomnia Trazodone 150 mg p.o. nightly DVT prophylaxis defer to Dr. Man DAILY CARE CHECKLIST * Carol Martínez RN - 11/08/2024 8:14 AM EST 07:40 pt awake, alert, sitting up in bed. Pt requested to have resp. updrafts after am meal. Pt denied pain, pt stated she is looking forward to going home today. * Katt Garg RN - 11/08/2024 12:46 AM EST Problem: Cognitive: Georges Garfield Fall Risk Goal: Last Known Fall Outcome: Progressing Goal: Mobility requiring assistance of person or device Outcome: Progressing Goal: Dizziness Outcome: Progressing Goal: Medications Outcome: Progressing Goal: Mental Status/LOC/Awareness Outcome: Progressing Goal: Toileting Needs Outcome: Progressing Goal: Volume and Electrolyte Status Outcome: Progressing Goal: Communication/Sensory Outcome: Progressing Goal: Behavior Outcome: Progressing Goals: Identify possible barriers to meeting goals/advancing plan of care: Pt continues to work toward rehab goals. Stability of the patient: Moderately Unstable - Medium risk of patient condition declining or worsening End of Shift Summary: Pt mod I with cane, spoke with pt and requested pt use call bryson for assistance OOB since bilat SCD boots on to prevent fall, pt agreed. Call bryson within reach. * Jerry Cannon LCSW - 11/07/2024 4:11 PM EST Discharge note: Met with pt at bedside to review discharge plan. Pt discharging home tomorrow 11/08 at 11am. Friend to provide transportation home. Pt will follow up with [facility] rehab for PT and APARTMENT LEASING AGENT only. Pt is aware she has been registered for [employer] transportation and will need to call to book a ride to each appointment. Pt is familiar with [employer]. Pt will also need to update address with [facility], pt provided contact information. Pt had no questions or concerns at this time. Pt looking forward to discharge. * Lore Cortes, PT - 11/07/2024 3:00 PM EST [facility] Physical Therapy Discharge Evaluation Note 11/07/24 Patient: Estephania Bill : 1960 Age: 63 y.o. Gender: female Primary Language: Polish Diagnosis: CVA HPI: Defer to EMR No past medical history on file. No past surgical history on file. Allergies: has No Known Allergies. Precautions: Medical Precautions: Fall Risk Safety Interventions: Call bryson within reach RUE Weight Bearing Status: Full LUE Weight Bearing Status: Full RLE Weight Bearing Status: Full LLE Weight Bearing Status: Full SUBJECTIVE I am ready to sleep in my own bed Home Living: Type of Home: Apartment Lives With: Alone (with dog. son assists with dog walking.) Home Adaptive Equipment: (pt has a walker and a cane. pt was using a cane for all mobility around house. Pt was using walker outside of house.) Home Living Comments: (no stairs inside appartment) Home Layout: One level (first floor) Home Access: (threshold to enter.) Bathroom Shower/Tub: Tub/shower unit Bathroom Toilet: Standard Bathroom Equipment: Shower chair with back Pain: No pain reported OBJECTIVE General Observation: Pt sitting in wheelchair upon arrival to session, agreeable to PT session. Cognition/Communication: Orientation Level: Oriented X4 Skin: Defer to nursing for full assessment Sensation: Light Touch: No apparent deficits Proprioception: Proprioception: Partial deficits in the LLE (impaired at great toe, intact at ankle) Coordination: Coordination: Gross motor impaired Coordination and Movement Description: LLE impairment Balance: Static Sitting Balance Static Sitting-Level of Assistance: Independent Dynamic Sitting Balance Dynamic Sitting-Level of Assistance: Independent Static Standing Balance Static Standing-Level of Assistance: Independent Dynamic Standing Balance Dynamic Standing-Level of Assistance: Independent Strength: Strength RLE R Hip Flexion: 4/5 R Knee Flexion: 4/5 R Knee Extension: 4/5 R Ankle Dorsiflexion: 4/5 R Ankle Plantar Flexion: 4/5 Strength LLE L Hip Flexion: 3+/5 L Knee Flexion: 4/5 L Knee Extension: 4/5 L Ankle Dorsiflexion: 4/5 L Ankle Plantar Flexion: 3+/5 Range of Motion: BLE ROM WFL QUALITY INDICATORS SCORING: Bed Mobility Roll Left and Right Assistance [...] CARE Score - Sit to Stand: 6 Chair/Zvl-ii-Wirqs Transfer Assistance Needed: Independent Physical Assistance Level: No physical assistance CARE Score - Chair/Aew-gc-Vntso Transfer: 6 Toilet Transfer Assistance Needed: Independent CARE Score - Toilet Transfer: 6 Car Transfer Assistance Needed: Independent Physical Assistance Level: No physical assistance CARE Score - Car Transfer: 6 Ambulation Walk 10 Feet Assistance Needed: Independent Physical Assistance Level: No physical assistance CARE Score - Walk 10 Feet: 6 Walk 50 Feet with Two Turns Assistance Needed: Independent Physical Assistance Level: No physical assistance CARE Score - Walk 50 Feet with Two Turns: 6 Walk 150 Feet Assistance Needed: Independent Physical Assistance Level: No physical assistance CARE Score - Walk 150 Feet: 6 Walking 10 Feet on Uneven Surfaces Assistance Needed: Independent Physical Assistance Level: No physical assistance CARE Score - Walking 10 Feet on Uneven Surfaces: 6 Stairs 1 Step (Curb) Assistance Needed: Independent Physical Assistance Level: No physical assistance CARE Score - 1 Step (Curb): 6 4 Steps Assistance Needed: Independent Physical Assistance Level: No physical assistance CARE Score - 4 Steps: 6 12 Steps Assistance Needed: Independent Physical Assistance Level: No physical assistance CARE Score - 12 Steps: 6 Sweatband Cutting Machine Operator Object Picking Up Object Assistance Needed: Independent Physical Assistance Level: No physical assistance CARE Score - Picking Up Object: 6 Wheelchair Uses a Wheelchair/Scooter? Uses a Wheelchair/Scooter?: No STANDARDIZED TESTS: ALCANTARA - 52/56 FGA - 26/30 Modified Skylar Scale - 1 PT TREATMENT PROVIDED TODAY: Neuromuscular Reeducation Balance/Neuromuscular Re-Education Neuromuscular Re-Education Time Entry: 30 200pm-215pm - Pt supine in bed upon arrival to session, agreeable to PT session. Completion supine to sit Thom. Sit to stand Thom and ambulation [id number] with no AD Thom. Completion assessment of LE strength. At this point speech therapy coming for session with pt. Pt in wheelchair with chair alarm on, call bryson given, and all needs met. 300pm-345pm - Pt sitting in wheelchair upon arrival to session, agreeable to PT session. Completionsit to stand Thom and ambulation with no AD Thom from room to therapy gym. Completion objective testing and balance assessments, defer to above for specific details. Completion 3x4 stairs with no break with no UE support, step over step pattern on ascent and intermittent step over step and step to on descent. Completion x2 6 inch platform steps Thom with no UE support. Completion 2x10ft ambulation over uneven mat surface with no AD, Thom. Completion ambulation no AD back to room alternating fast and slow walking and forwards and backwards walking on command, Thom. In room instructions to pt for home exercises to complete prior to onset of outpatient physical therapy. Answering patients remaining mobility related questions. Pt able to recall all s/s of stroke from [facility]-FAST. Chair alarm on, call bryson given, and all needs met. PT ASSESSMENT: PT Assessment Results: Decreased strength, Decreased endurance, Impaired balance Prognosis: Good Evaluation/Treatment Tolerance: Patient tolerated treatment well Comments: Pt with good tolerance to re-evaluation and session. At this point in time patient is Thom for bed mobility, Thom for sit to stand and transfers, Thom for ambulation x150ft with no device, and Thom x12 stairs. Pt with great improvements in static and dynamic balance shown through scores on ALCANTARA and FGA. Patient with remaining impairments in LLE strength and dynamic balance. Recommendingpatient receive outpatient physical therapy in order to reduce remaining limitations. PT PLAN: PT Plan: No skilled PT No Skilled PT: Safe to return home PT Discharge Recommendations: Outpatient PT Equipment Recommended: None Recommending patient receive outpatient physical therapy post discharge from IRF in order to reduceremaining limitations. Goals: Encounter Problems Encounter Problems (Active) There are no active problems. Encounter Problems (Resolved) Template: Physical Therapy Problem: PT Residential Goals Dates: Start: 10/26/24 Resolved: 11/07/24 Goal: Thom bed mobility (Resolved) Dates: Start: 10/26/24 Expected End: 11/09/24 Resolved: 11/07/24 Outcomes Date/Time User Outcome 11/07/24 1225 Lore Cortes PT Completed Goal: Thom transfers LRAD (Resolved) Dates: Start: 10/26/24 Expected End: 11/09/24 Resolved: 11/07/24 Outcomes Date/Time User Outcome 11/07/24 1225 Lore Cortes PT Completed Goal: Thom ambulation x150ft LRAD (Resolved) Dates: Start: 10/26/24 Expected End: 11/09/24 Resolved: 11/07/24 Outcomes Date/Time User Outcome 11/07/24 [id number] Lore Cortes PT Completed Goal: Thom threshold step with RW (Resolved) Dates: Start: 10/26/24 Expected End: 11/09/24 Resolved: 11/07/24 Outcomes Date/Time User Outcome 11/07/24 Rosalee Cortes PT Completed Goal: Thom wheelchair mobility (Resolved) Dates: Start: 10/26/24 Expected End: 11/09/24 Resolved: 11/07/24 Outcomes Date/Time User Outcome 11/07/24 Rosalee Cortes PT Completed Problem: PT Short Term Goals Dates: Start: 10/26/24 Resolved: 11/07/24 Goal: supervision bed mobility (Resolved) Dates: Start: 10/26/24 Expected End: 11/02/24 Resolved: 11/07/24 Outcomes Date/Time User Outcome 11/07/24 Rosalee Cortes PT Completed Goal: steadying assist transfers LRAD (Resolved) Dates: Start: 10/26/24 Expected End: 11/02/24 Resolved: 11/07/24 Outcomes Date/Time User Outcome 11/07/24 122Jeffrey Cortes PT Completed Goal: steadying assist ambulation x50ft LRAD (Resolved) Dates: Start: 10/26/24 Expected End: 11/02/24 Resolved: 11/07/24 Outcomes Date/Time User Outcome 11/07/24 122Jeffrey Cortes PT Completed Goal: threshold step with RW partial A (Resolved) Dates: Start: 10/26/24 Expected End: 11/02/24 Resolved: 11/07/24 Outcomes Date/Time User Outcome 11/07/24 1225 Lore Cortes PT Completed Education Documentation Precautions, taught by Lore Cortes PT at 11/07/2024 12:26 PM. Learner: Patient Readiness: Acceptance Method: Explanation, Demonstration Response: Verbalizes Understanding, Demonstrated Understanding Body Mechanics, taught by Lore Cortes PT at 11/07/2024 12:26 PM. Learner: Patient Readiness: Acceptance Method: Explanation, Demonstration Response: Verbalizes Understanding, Demonstrated Understanding Home Exercise Program, taught by Lore Cortes PT at 11/07/2024 12:26 PM. Learner: Patient Readiness: Acceptance Method: Explanation, Demonstration Response: Verbalizes Understanding, Demonstrated Understanding Mobility Training, taught by Lore Cortes PT at 11/07/2024 12:26 PM. Learner: Patient Readiness: Acceptance Method: Explanation, Demonstration Response: Verbalizes Understanding, Demonstrated Understanding Safe Use of DME, taught by Lore Cortes PT at 11/07/2024 12:26 PM. Learner: Patient Readiness: Acceptance Method: Explanation, Demonstration Response: Verbalizes Understanding, Demonstrated Understanding How to Obtain Needed DME, taught by Lore Cortes PT at 11/07/2024 12:26 PM. Learner: Patient Readiness: Acceptance Method: Explanation, Demonstration Response: Verbalizes Understanding, Demonstrated Understanding Warning Signs and Symptoms of Stroke, taught by Lore Cortes PT at 11/07/2024 12:26 PM. Learner: Patient Readiness: Acceptance Method: Explanation, Demonstration Response: Verbalizes Understanding, Demonstrated Understanding Activation of EMS (Call 911), taught by Lore Cortes PT at 11/07/2024 12:26 PM. Learner: Patient Readiness: Acceptance Method: Explanation, Demonstration Response: Verbalizes Understanding, Demonstrated Understanding Discharge Planning, taught by Lore Cortes PT at 11/07/2024 12:26 PM. Learner: Patient Readiness: Acceptance Method: Explanation, Demonstration Response: Verbalizes Understanding, Demonstrated Understanding Fall Precautions, taught by Lore Cortes PT at 11/07/2024 12:26 PM. Learner: Patient Readiness: Acceptance Method: Explanation, Demonstration Response: Verbalizes Understanding, Demonstrated Understanding Education Comments No comments found. Session Start/Stop Time: 1500 1600 Therapy Minutes Physical Therapy PT Individual: 60 * Lyudmila Younger, APARTMENT LEASING AGENT - 11/07/2024 2:15 PM EST Speech Language Pathology Speech/Language Pathology Discharge Report Subjective: Patient's response to therapy: Agreeable to d/c assessment. Objective: Kleber Cognitive Assessment (MOCA) 8.2 Visuospatial/Executive: 4/5 Namin/3 Attention - Digits: 2/2 Attention - Letters: 1/1 Attention - Serial Subtraction: 0/3 Language - Repetition: 0/2 Language - Naming Fluency: 0/1 Abstraction: 0/2 Delayed Recall: 2/5 Orientation: 6/6 TOTAL SCORE: 18/30 Normal >= 26/30 Comments: Kleber Cognitive Assessment (MOCA) Version 8.2: Composite Score: +18/30, correlating to moderate/borderline mild cognitive impairment. Interpretation: scores of 26 or greater are WFL compared to a normative sample of similarly aged adults. Below this, scores can indicate severe (<=9 points), moderate (10-18 points) or mild (19-24points) cognitive impairment Memory Index Score: /15: 2/5 words recalled independently, 0/5 with category cues, 1/5 with multiple choice cues. Speech Therapy Discharge Activity: With this automobile service writer, Pt generated two skills learned in PT/OT/ST and how she will apply at home, three problems/solutions she might encounter at home and two goals forthe next month and year. Pt tasked with entering first OP ST appointment into phone calendar: required mod A. Provided Pt with external handout for step by step instructions on how to use phone calendar as external memory strategy. Extensive review of cognitive linguistic compensatory strategies and handouts for home use. Pt verbalized understanding and agreement. Recommended Pt bring ST folder to OP ST. Goals: Encounter Problems Encounter Problems (Active) Template: Speech Therapy Problem: APARTMENT LEASING AGENT Varnishing Unit Tool Setter Goals Dates: Start: 10/26/24 Goal: Pt will improve cognitive linguistic skills for d/c setting. Dates: Start: 10/26/24 Expected End: 11/08/24 Outcomes Date/Time User Outcome 11/07/24 1642 BENEDICT Hines Adequate for Discharge Problem: APARTMENT LEASING AGENT Short Term Goals Dates: Start: 10/26/24 Goal: Pt will participate in additional cognitive/language/speech assessment. (Resolved) Dates: Start: 10/26/24 Expected End: 11/02/24 Resolved: 11/04/24 Outcomes Date/Time User Outcome 11/04/24 1345 BENEDICT Quintero Completed Goal: Pt will complete a variety of mod-higher level naming tasks at 90% accuracy given min A. Dates: Start: 10/26/24 Expected End: 11/08/24 Outcomes Date/Time User Outcome 11/07/24 1642 BENEDICT Hines Adequate for Discharge Goal: Pt will improve complex attention for visual and/or auditory tasks to 90% accuracy given min A Dates: Start: 10/27/24 Expected End: 11/08/24 Description: Outcomes Date/Time User Outcome 11/07/24 [id number] Acevedo Adequate for Discharge Goal: Pt will improve immediate and delayed recall of functional information given mod A for encoding and min A for retrieval - 90% accuracy Dates: Start: 10/27/24 Expected End: 11/08/24 Description: Outcomes Date/Time User Outcome 11/07/24 [id number] Acevedo Adequate for Discharge Goal: Pt will use fluency strategies in a variety of speech scenarios given min A in 4 out of 5 opportunities (Resolved) Dates: Start: 10/27/24 Expected End: 11/08/24 Resolved: 11/07/24 Description: Outcomes Date/Time User Outcome 11/07/24 BENEDICT Urena Completed Goal: Pt will complete basic/functional word problems related to time/money at 80% accuracy given mod A. Dates: Start: 10/31/24 Expected End: 11/07/24 Description: Outcomes Date/Time User Outcome 11/07/24 [id number] Acevedo Adequate for Discharge Encounter Problems (Resolved) There are no resolved problems. Plan: APARTMENT LEASING AGENT Discharge Recommendations: Outpatient APARTMENT LEASING AGENT Discharge Assessment/Impressions: On discharge, Pt presents with moderate/borderline mild cognitive linguistic deficits as characterized by 18/30 on MOCA 8.2 d/c assessment today. Deficits characterized by reduced attention, languagerepetition and fluency, abstraction and immediate/delayed recall. Recommend OP ST to continue targeting aforementioned skills. Pt has been provided with handouts for cognitive linguistic compensatorystrategies and has verbalized understanding and agreement to use at home. Pt's deficits improve with use of strategies and would benefit from further practice to promote carryover in the home setting. Patient is discharged to: Other (Comment) (Outpatient Rehab) Associated attestation - Edwina Nassar SLP - 11/07/2024 5:29 PM EST I attest that I, Tameka Nassar M.S.,[facility]-APARTMENT LEASING AGENT, was physically involved in the ongoing assessment, decision making, and interventions provided during today's patient care session. I have reviewed all documentation for today's 11/07/24, entered by Speech Therapy Fellow, Lyudmila Landa, and further attest that it is an accurate clinical record of today's encounter, including accurate and appropriatecharges. * Juliann Man, - 11/07/2024 12:28 PM EST Images from the original note were not included. [facility] Daily Progress Note Patient name: Estephania Bill : 1960 SUBJECTIVE: Patient seen and examined at bedside today. No acute events overnight. Denies headaches, dizziness,shortness of breath, chest pain, nausea, constipation. Reports that right shoulder pain is well controlled. States that she is looking forward to discharge tomorrow. EEG pending as ordered by Medicine team last week. Nursing confirmed that this will be completed today with EEG lab. TEAM CONFERENCE: I was present and participated in team meeting today. I agree with team conferenceplan as documented in alternate note today. Please refer to team conference note for further details. OBJECTIVE: Vitals: 11/06/24 1522 11/07/24 0000 11/07/24 0950 11/07/24 1019 BP: 135/83 135/72 112/83 127/70 BP Location: Right arm Right arm;Upper Patient Position: Lying Sitting Pulse: 71 75 95 84 Resp: 16 16 16 Temp: 37 ??C (98.6 ??F) 36.7 ??C (98.1 ??F) 36.4 ??C (97.6 ??F) TempSrc: Oral Temporal SpO2: 100% 99% 100% Weight: Physical Examination: General: Alert, in no acute cardiopulmonary distress. Mental Status: Oriented to person, place and time. Normal affect. Head: Normocephalic. Eyes: Extraocular muscles grossly intact. Ear, Nose and Throat: Oropharynx clear, mucous membranes moist. Ears and nose without masses, lesions or deformities. Neck: Supple, Trachea midline. Respiratory: Clear to auscultation and percussion. No wheezing, rales or rhonchi. Cardiovascular: Heart sounds normal. No thrills. Regular rate and rhythm, no murmurs, rubs or gallops. Gastrointestinal: Abdomen soft, non-tender, non-distended. Normal bowel sounds. Neurologic: Cranial nerves II-XII grossly intact. Deep tendon reflexes +2 bilaterally. Negative Hoffmans sign bilaterally. Flexor plantar response bilaterally. Negative clonus bilaterally. Moves all extremities spontaneously. Skin: No rashes or lesions. No petechiae or purpura. No edema. Musculoskeletal: No cyanosis or clubbing. No gross deformities. Right shoulder AROM without pain today. No erythema, warmth, or edema of the right shoulder appreciated. Strength 5/5 throughout right upper and lower extremities. Strength 4+/5 throughout left upper and lower extremities. CURRENT INPATIENT MEDICATIONS: Current Facility-Administered Medications: acetaminophen (TYLENOL) tablet 1,000 mg, 1,000 mg, oral, q8h PRN, Almita Magallanes NP, 1,000 mg at 11/02/24 1447 albuterol 2.5 mg /3 mL (0.083 %) nebulizer solution 2.5 mg, 2.5 mg, nebulization, q6h PRN, Almita Gabriel NP aspirin chewable tablet 81 mg, 81 mg, oral, Daily, Almita Magallanes NP, 81 mg at 11/07/24 09 atorvastatin (LIPITOR) tablet 40 mg, 40 mg, oral, Nightly, Almita Magallanes NP, 40 mg at 11/06/242009 budesonide (PULMICORT) 1 mg/2 mL nebulizer solution 0.5 mg, 0.5 mg, nebulization, Daily, 0.5 mg at 11/07/2451 AND formoterol (PERFOROMIST) 20 mcg/2 mL nebulizer solution 20 mcg, 20 mcg, nebulization, BID, Almita Magallanes NP, 20 mcg at 11/07/24950 clopidogreL (PLAVIX) tablet 75 mg, 75 mg, oral, Daily, Almita Magallanes NP, 75 mg at 11/07/2452 docusate sodium (COLACE) capsule 100 mg, 100 mg, oral, BID, Almita Magallanes NP, 100 mg at 11/07/24951 DULoxetine (CYMBALTA) DR capsule 60 mg, 60 mg, oral, Daily, Almita Magallanes NP, 60 mg at 11/07/2451 ferrous sulfate tablet 325 mg, 325 mg, oral, Daily, Almita Magallanes NP, 325 mg at 11/07/24951 gabapentin (NEURONTIN) capsule 400 mg, 400 mg, oral, q8h SUNIL, Almita Magallanes NP, 400 mg at 11/07/24 0510 lidocaine 4 % patch 1 patch, 1 patch, Topical, Daily, Almita Magallanes NP, 1 patch at 11/06/24 0805 magnesium hydroxide (MILK OF MAGNESIA) 400 mg/5 mL suspension 30 mL, 30 mL, oral, Nightly PRN, Almita Magallanes NP, 30 mL at 10/28/24 211 oxyCODONE (ROXICODONE) immediate release tablet 2.5 mg, 2.5 mg, oral, q4h PRN, Almita Magallanes NP, 2.5 mg at 11/07/24 0509 pantoprazole (PROTONIX) EC tablet 40 mg, 40 mg, oral, q AM AC, Almita Magallanes NP, 40 mg at 11/07/24 05 senna (SENOKOT) tablet 17.2 mg, 2 tablet, oral, Nightly, Almita Magallaens NP, 17.2 mg at 11/05/242054 traZODone (DESYREL) tablet 150 mg, 150 mg, oral, Nightly, Almita Magallanes NP, 150 mg at 11/06/242014 LABS: Lab Results Component Value Date WBC 6.9 11/03/2024 RBC 4.60 11/03/2024 HGB 11.0 (L) 11/03/2024 HCT 36.1 11/03/2024 MCV 79.2 11/03/2024 MCHC 30.5 (L) 11/03/2024 RDW 17.0 (H) 11/03/2024 PLT 224 11/03/2024 MPV 10.1 11/03/2024 NRBC 0.0 11/03/2024 DIFF Lab Results Component Value Date LYMPHOPCT 36.7 11/03/2024 NEUTROABS 3.43 11/03/2024 LYMPHSABS 2.52 11/03/2024 MONOABS 0.68 11/03/2024 EOSABS 0.14 11/03/2024 BASOSABS 0.02 11/03/2024 IMMGRANABS 0.08 (H) 11/03/2024 RETIC No results found for: RETIC , RETICCTPCT Lab Results Component Value Date NA 134 11/03/2024 K 4.1 11/03/2024 CL 102 11/03/2024 CO2 27 11/03/2024 GLUCOSE 96 11/07/2024 BUN 23 11/03/2024 CREATININE 0.80 11/03/2024 CALCIUM 8.6 11/03/2024 PROT 6.3 11/03/2024 ALBUMIN 3.2 11/03/2024 BILITOT 0.4 11/03/2024 AST 20 11/03/2024 ALT 28 11/03/2024 MG 1.9 11/03/2024 ALKPHOS 72 11/03/2024 EGFR 83 11/03/2024 IMPRESSION & PLAN: #Impaired mobility and self-care -Secondary to acute CVA -Continue PT, OT, APARTMENT LEASING AGENT, and nursing care #Acute CVA #Left Hemiparesis -s/p TNK 10/19/2024 -Aspirin 81 mg daily -Plavix 75 mg daily -Atorvastatin 40 mg nightly -continue therapies -EEG will be completed on 11/07 to rule out seizure activity given episode of twitching on 11/03 -Follow up with Neurology stroke clinic after DC #Altered mental status #Left facial and LUE twitching -Symptoms occurred temporarily on 11/03, now resolved -EEG ordered and pending to rule out seizure activity #HFpEF #CAD s/p CABG in 2019 #Hypertension -Entresto 97-103 mg 1 tab BID --> decreased to 24-26mg 1 tab BID with holding parameters on 10/26 due to hypotension -Carvedilol 25 mg BID w/ meals --> decreased to 12.5mg BID w/meals on 10/26 due to hypotension --> discontinued on 10/27 due to hypotension #Hyperlipidemia -Atorvastatin 40 mg nightly #Prediabetes -A1C 6.1 on 10/26 -Diabetic diet -ISS and POCs discontinued on 11/07 given that POCs well controlled without need for intervention #Chronic Pain #Pain management -Duloxetine 60mg daily -Gabapentin 800 mg Q8H --> decreased to 600mg Q8H on 10/26 due to creatinine clearance --> decreased to 400mg Q8H on 10/28 due to hypotension -Acetaminophen 1000mg Q8H PRN pain #Right shoulder pain -Xray right shoulder 10/26 negative -s/p right shoulder intra-articular steroid injection on 10/28 -Lidocaine patch daily -heat/ice PRN -Oxycodone 2.5mg Q4H PRN #Anxiety -Trazodone 150 mg nightly #GERD -Pantoprazole 40mg daily #Anemia -Ferrous sulfate 325mg daily #Bowel management -Colace 100mg BID -Senna 2 tabs QHS DVTP: Aspirin 81 mg po daily and Plavix 75 mg po daily w/ compression device * Tawnya Carmen OT - 11/07/2024 11:20 AM EST [facility] Occupational Therapy Discharge Note 11/07/24 Patient: Estephania Bill : 1960 Age: 63 y.o. Gender: female Diagnosis: No Principal Problem: There is no principal problem currently on the Problem List. Please update the Problem List and refresh. Primary Rehab (Etiologic) Diagnosis: Patient Active Problem List Diagnosis Stroke (CMS/HCC) Diabetes (CMS/HCC) CVA (cerebral vascular accident) (CMS/HCC) Noncompliance HTN (hypertension) TIA (transient ischemic attack) PMH: No past medical history on file. PSH: No past surgical history on file. Allergies: has No Known Allergies. Precautions: Precautions Medical Precautions: Fall Risk Safety Interventions: Call bryson within reach RUE Weight Bearing Status: Full LUE Weight Bearing Status: Full RLE Weight Bearing Status: Full LLE Weight Bearing Status: Full Vitals: BP: 127/70 Heart Rate: 84 SpO2: 100 % Pain: Pain Assessment: No/denies pain Patient Subjective: I can't wait to see my dog Session Summary from 11/07/24 CAMS Discharge Is there evidence of an acute change in mental status from the patient's baseline?: No (11/07/24 1000 : Tawnya Carmen OT) Inattention: Behavior not present (11/07/24 1000 : Tawnya Carmen OT) Disorganized thinking: Behavior not present (11/07/24 1000 : Tawnya Carmen OT) Altered level of consciousness: Behavior not present (11/07/24 1000 : Tawnya Carmen OT) BIMS Discharge 15 (11/07/24 1000 : Tawnya Carmen OT) Hearing, Speech, and Vision- Discharge Hearing, Speech, and Vision Ability to Hear: Adequate Ability to See in Adequate Light: Adequate Expression of Ideas and Wants: Without difficulty Understanding Verbal and Non-Verbal Content: Understands FUNCTIONAL STATUS ADL ASSIST Eating Assistance Needed: Independent Oral Hygiene Oral Hygiene Assistance Needed: Independent CARE Score - Oral Hygiene: 6 Toileting Toileting Hygiene Assistance Needed: Independent Physical Assistance Level: 25% or less Comment: partial A for more than steadying CARE Score - Toileting Hygiene: 6 Bathing Shower/Bathe Self Assistance Needed: Independent Physical Assistance Level: No physical assistance Comment: steadying in stand CARE Score - Shower/Bathe Self: 6 UE Dressing Upper Body Dressing Assistance Needed: Independent CARE Score - Upper Body Dressin LE Dressing Lower Body Dressing Assistance Needed: Independent Comment: steadying CARE Score - Lower Body Dressin Footwear Putting On/Taking Off Footwear Assistance Needed: Independent CARE Score - Putting On/Taking Off Footwear: 6 Toilet Transfer Tub/Shower Transfer Vision: Vision - Complex Assessment Tracking: Able to track stimulus in all quads without difficulty Saccades: (WFL, blinking throughout.) Perception: Perception Inattention/Neglect: Appears intact Proprioception: Proprioception Proprioception: No apparent deficits Skin: Sensation: Sensation Light Touch: No apparent deficits UPPER EXTREMITY ASSESSMENTS RUE Assessment RUE Assessment: Within Functional Limits RUE Strength R Shoulder Flexion: 4/5 R Shoulder Extension: 4/5 R Shoulder ABduction: 4/5 R Shoulder Internal Rotation: 4/5 R Shoulder External Rotation: 4/5 R Shoulder Horizontal ABduction: 4-/5 R Shoulder Horizontal ADduction: 4-/5 R Elbow Flexion: 4/5 R Elbow Extension: 4/5 R Forearm Pronation: 4/5 R Forearm Supination: 4/5 R Wrist Flexion: 4/5 R Wrist Extension: 4/5 LUE Assessment LUE Assessment: Within Functional Limits LUE Strength L Shoulder Flexion: 4/5 L Shoulder Extension: 4/5 L Shoulder ABduction: 4/5 L Shoulder Internal Rotation: 4/5 L Shoulder External Rotation: 4/5 L Shoulder Horizontal ABduction: 4/5 L Shoulder Horizontal ADduction: 4/5 L Elbow Flexion: 4/5 L Elbow Extension: 4/5 L Forearm Pronation: 4/5 L Forearm Supination: 4/5 L Wrist Flexion: 4/5 L Wrist Extension: 4/5 L Wrist Radial Deviation: 4/5 STANDARDIZED TESTS Right Hand Strength - Storage Management Consultant (lbs) Handle Setting 1: 39 lbs Handle Setting 2: 37 lbs Right Hand Strength - Pinch (lbs) Lateral: 13 lbs Tip (2 point): 7 lbs Three Jaw Endy: 9 lbs Left Hand Strength - Storage Management Consultant (lbs) Handle Setting 1: 14 lbs Handle Setting 2: 10 lbs Left Hand Strength - Pinch (lbs) Lateral: 6 lbs Tip (2 point): 5 lbs Three Jaw Endy: 5 lbs 9 Hole Peg Test (seconds) Right - 9 Hole Peg Test (seconds): 25 seconds Left - 9 Hole Peg Test (seconds): 38 seconds Procedures/Interventions: ADLs/IADLs Self Care/Home Management (ADLs) Time Entry: 75 Pt in bed upon arrival for therapy session. Supine to sit EOB performed Mod I. Mod I amb through room<>shower stall on unit. Pt completed majority of bathing tasks while seated on shower chair,Mod I STS to wash/dry ninoska/buttocks. Pt returned to room to independently complete dressing/grooming tasks. Pt able to recall 6/6 signs/symptoms of stroke with 100% accuracy. Pt requested to lay down at end of therapy session. Pt remained in bed with alarm on and call bryson within reach. OT Plan Plan Treatment Interventions: ADL retraining, Functional transfer training, UE strengthening/ROM, Endurance training, Equipment evaluation/education, Neuromuscular reeducation, Fine motor coordination activities OT Plan: Skilled OT OT Frequency : 5-7 days per week OT Duration of Sessions: 60-90 min per session OT Treatments per day: 1 time per day OT - Evaluation Status: Complete Goals: Encounter Problems Encounter Problems (Active) Template: Occupational Therapy Problem: OT Varnishing Unit Tool Setter Goals Dates: Start: 10/26/24 Goal: Mod I LB dressing (Resolved) Dates: Start: 10/26/24 Expected End: 11/09/24 Resolved: 11/07/24 Outcomes Date/Time User Outcome 11/07/24 Karl Carmen OT Completed Goal: S bathing in shower, including tub shower txfer. (Resolved) Dates: Start: 10/26/24 Expected End: 11/09/24 Resolved: 11/07/24 Outcomes Date/Time User Outcome 11/07/24 Karl Carmen OT Completed Goal: Toileting including txfer with LRAD mod I (Resolved) Dates: Start: 10/26/24 Expected End: 11/09/24 Resolved: 11/07/24 Outcomes Date/Time User Outcome 11/07/24 Karl Carmen OT Completed Goal: Pt will perform light meal prep at LRAD with mod I, implementing EC techniques prn (Resolved) Dates: Start: 10/26/24 Expected End: 11/09/24 Resolved: 11/07/24 Outcomes Date/Time User Outcome 11/07/24 Karl Carmen OT Completed Goal: pt will perform grooming in stand at sink with mod I (Resolved) Dates: Start: 10/26/24 Expected End: 11/09/24 Resolved: 11/07/24 Outcomes Date/Time User Outcome 11/07/24 Karl Carmen OT Completed Goal: Pt will decrease L UE 9 hole peg score by 8 seconds in order to increased INDEPENDENCE with clothing fasteners Dates: Start: 10/26/24 Expected End: 11/09/24 Description: Outcomes Date/Time User Outcome 11/07/24 Karl Carmen OT Adequate for Discharge Encounter Problems (Resolved) Template: Occupational Therapy Problem: OT Short Term Goals Dates: Start: 10/26/24 Resolved: 11/07/24 Goal: Pt will perform sponge bathing S level (Resolved) Dates: Start: 10/26/24 Expected End: 11/02/24 Resolved: 11/07/24 Outcomes Date/Time User Outcome 11/07/24 Karl Carmen OT Completed Goal: Pt will toilet with S, with LRAD (Resolved) Dates: Start: 10/26/24 Expected End: 11/02/24 Resolved: 11/07/24 Outcomes Date/Time User Outcome 11/07/24 Karl Carmen OT Completed Goal: Pt will retrieve clothing from closet RW level with no more than S (Resolved) Dates: Start: 10/26/24 Expected End: 11/02/24 Resolved: 11/07/24 Outcomes Date/Time User Outcome 11/07/24 Karl Carmen OT Completed Goal: Pt will perform tub shower txfer with steadying A (Resolved) Dates: Start: 10/26/24 Expected End: 11/02/24 Resolved: 11/07/24 Outcomes Date/Time User Outcome 11/07/24 Karl Carmen OT Completed Goal: Pt will recall 5 energy conservation techniques to implement during ADL/IADLs. (Resolved) Dates: Start: 10/26/24 Expected End: 11/02/24 Resolved: 11/07/24 Outcomes Date/Time User Outcome 11/07/24 Karl Carmen OT Completed OT Assessment OT Assessment OT Assessment Results: Decreased ADL status, Decreased upper extremity strength, Decreased endurance, Decreased fine motor control, Decreased functional mobility, Decreased IADLs Prognosis: Good Evaluation/Treatment Tolerance: Patient tolerated treatment well Medical Staff Made Aware: (Aware of pain.) Education Documentation Safe Use of DME, taught by Tawnya Carmen OT at 11/07/2024 11:20 AM. Learner: Patient Readiness: Acceptance Method: Explanation, Demonstration Response: Verbalizes Understanding, Demonstrated Understanding Use of Pill Box, taught by Tawnya Carmen OT at 11/07/2024 11:20 AM. Learner: Patient Readiness: Acceptance Method: Explanation, Demonstration Response: Verbalizes Understanding, Demonstrated Understanding Warning Signs and Symptoms of Stroke, taught by Tawnya Carmen OT at 11/07/2024 11:20 AM. Learner: Patient Readiness: Acceptance Method: Explanation, Demonstration Response: Verbalizes Understanding, Demonstrated Understanding Lovenox therapy, taught by Tawnya Carmen OT at 11/07/2024 11:20 AM. Learner: Patient Readiness: Acceptance Method: Explanation, Demonstration Response: Verbalizes Understanding, Demonstrated Understanding Stroke Medications Prescribed at Discharge, taught by Tawnya Carmen OT at 11/07/2024 11:20 AM. Learner: Patient Readiness: Acceptance Method: Explanation, Demonstration Response: Verbalizes Understanding, Demonstrated Understanding Personal Risk Factors for Stroke, taught by Tawnya Carmen OT at 11/07/2024 11:20 AM. Learner: Patient Readiness: Acceptance Method: Explanation, Demonstration Response: Verbalizes Understanding, Demonstrated Understanding Follow-Up after Discharge, taught by Tawnya Carmen OT at 11/07/2024 11:20 AM. Learner: Patient Readiness: Acceptance Method: Explanation, Demonstration Response: Verbalizes Understanding, Demonstrated Understanding Activation of EMS (Call 911), taught by Tawnya Carmen OT at 11/07/2024 11:20 AM. Learner: Patient Readiness: Acceptance Method: Explanation, Demonstration Response: Verbalizes Understanding, Demonstrated Understanding ADL Training, taught by Tawnya Carmen OT at 11/07/2024 11:20 AM. Learner: Patient Readiness: Acceptance Method: Explanation, Demonstration Response: Verbalizes Understanding, Demonstrated Understanding Body Mechanics, taught by Tawnya Carmen OT at 11/07/2024 11:20 AM. Learner: Patient Readiness: Acceptance Method: Explanation, Demonstration Response: Verbalizes Understanding, Demonstrated Understanding Fall Precautions, taught by Tawnya Carmen OT at 11/07/2024 11:20 AM. Learner: Patient Readiness: Acceptance Method: Explanation, Demonstration Response: Verbalizes Understanding, Demonstrated Understanding Education Comments No comments found. Start/Stop Time OT Time Calculation OT Start Time: 1000 OT Stop Time: 1130 OT Time Calculation (min): 90 min Therapy Minutes: Occupational Therapy OT Individual: 90 * Lia Hastings - 11/07/2024 8:45 AM EST Social Work Note Integrated Hockey Instructor Dx: Hx of depression and anxiety: Met with patient at bedside his morning, to see how things went last week for her. Patient reports that things went well and she is excited to going home tomorrow. She feels ready about the transition and she has no concerns. She is all set on my end. Lia Hastings, MS Nachocian * Charlene Bull, APARTMENT LEASING AGENT - 11/05/2024 3:25 PM EST Speech Language Pathology Speech Language Pathology Treatment Subjective APARTMENT LEASING AGENT Start Time: 1230 APARTMENT LEASING AGENT Stop Time: 1300 APARTMENT LEASING AGENT Time Calculation (min): 30 min Subjective: Pt was resting in bed upon arrival but easily awoke to verbal stimuli. Pt was pleasant and agreeable to session. Pt reported that she is excited to go home on Thursday. Objective General Visit Info General Family/Caregiver Present: No Treatment Speech and Language Speech Treatment (Individual) Time Entry: 15 Verbal Expression: Pt was able to generate synoyms/opposites for target word w/ 50% accuracy indep.and 70% given mod A for semantic cues and use of strategies. Pt had increased accuracy for synoyms compared to opposites. Pt engaged in a conversation about using synoyms/opposites as a word finding strategy. Cognitive Skills Therapeutic Interventions Cognitive Skills Direct Contact Time Entry: 15 Memory: Pt reported that she had a lot of appts to book after d/c. Pt was tasked w/ recalling the list of providers and created a list given mod A for organization and recall. Attention/Concentration: Pt generated the steps she had [...] areminder to call the transporation for HW. Assessment/Plan APARTMENT LEASING AGENT Assessment APARTMENT LEASING AGENT Assessment Results: Cognitive impairments Evaluation/Treatment Tolerance: Patient tolerated treatment well Plan Treatment/Interventions: Cognitive linguistic functioning APARTMENT LEASING AGENT Plan: Skilled APARTMENT LEASING AGENT APARTMENT LEASING AGENT Frequency: 5-7 days per week APARTMENT LEASING AGENT Duration of Sessions: 30-60 min per session APARTMENT LEASING AGENT Treatments per day: 1 time per day Goals Encounter Problems Encounter Problems (Active) Template: Speech Therapy Problem: APARTMENT LEASING AGENT Residential Goals Dates: Start: 10/26/24 Goal: Pt will improve cognitive linguistic skills for d/c setting. Dates: Start: 10/26/24 Expected End: 11/08/24 Outcomes Date/Time User Outcome 11/05/24 BENEDICT Moreno Progressing Problem: APARTMENT LEASING AGENT Short Term Goals Dates: Start: 10/26/24 Goal: Pt will participate in additional cognitive/language/speech assessment. (Resolved) Dates: Start: 10/26/24 Expected End: 11/02/24 Resolved: 11/04/24 Outcomes Date/Time User Outcome 11/04/24 1345 BENEDICT Quintero Completed Goal: Pt will complete a variety of mod-higher level naming tasks at 90% accuracy given min A. Dates: Start: 10/26/24 Expected End: 11/08/24 Outcomes Date/Time User Outcome 11/05/24 BENEDICT Moreno Not Progressing Goal: Pt will improve complex attention for visual and/or auditory tasks to 90% accuracy given min A Dates: Start: 10/27/24 Expected End: 11/08/24 Description: Outcomes Date/Time User Outcome 11/05/24 BENEDICT Moreno Not Progressing Goal: Pt will improve immediate and delayed recall of functional information given mod A for encoding and min A for retrieval - 90% accuracy Dates: Start: 10/27/24 Expected End: 11/08/24 Description: Outcomes Date/Time User Outcome 11/05/24 BENEDICT Moreno Not Progressing Goal: Pt will use fluency strategies in a variety of speech scenarios given min A in 4 out of 5 opportunities Dates: Start: 10/27/24 Expected End: 11/08/24 Description: Outcomes Date/Time User Outcome 11/04/24 [id number] Barajas Progressing Goal: Pt will complete basic/functional word problems related to time/money at 80% accuracy given mod A. Dates: Start: 10/31/24 Expected End: 11/07/24 Description: Outcomes Date/Time User Outcome 11/04/24 [id number] Barajas Not Progressing Encounter Problems (Resolved) There are no resolved problems. Education Documentation Speech/Language, taught by BENEDICT Quintero at 11/05/2024 3:25 PM. Learner: Patient Readiness: Acceptance Method: Explanation Response: Verbalizes Understanding Comment: Pt was provided education about use of external memory aids. Cognition, taught by BENEDICT Quintero at 11/05/2024 3:25 PM. Learner: Patient Readiness: Acceptance Method: Explanation Response: Verbalizes Understanding Comment: Pt was provided education about use of external memory aids. Education Comments No comments found. Associated attestation - Edwina Nassar SLP - 11/05/2024 6:36 PM EST I attest that I, Tameka Nassar M.S.,[facility]-APARTMENT LEASING AGENT, was physically involved in the ongoing assessment, decision making, and interventions provided during today's patient care session. I have reviewed all documentation for today's 11/05/24, entered by Speech Therapy Fellow, Charlene Gottlieb, and further attest that it is an accurate clinical record of today's encounter, including accurate and appropriate charges. * LALA Urena - 11/05/2024 2:56 PM EST [facility] Occupational Therapy Treatment Note 11/05/24 Patient: Estephania Bill : 1960 Age: 63 y.o. Gender: female Diagnosis: No Principal Problem: There is no principal problem currently on the Problem List. Please update the Problem List and refresh. Primary Rehab (Etiologic) Diagnosis: Patient Active Problem List Diagnosis Stroke (CMS/HCC) Diabetes (CMS/HCC) CVA (cerebral vascular accident) (CMS/HCC) Noncompliance HTN (hypertension) TIA (transient ischemic attack) PMH: No past medical history on file. PSH: No past surgical history on file. Allergies: has No Known Allergies. Precautions: Precautions Medical Precautions: Fall Risk Safety Interventions: Call bryson within reach RUE Weight Bearing Status: Full LUE Weight Bearing Status: Full RLE Weight Bearing Status: Full LLE Weight Bearing Status: Full Vitals: BP: 136/81 Heart Rate: 79 Pain: Subjective: Can we do some therapy in the room? My sister is coming to visit and I haven't seen herin a long time. Procedures/Interventions: Therapeutic Activity Therapeutic Activity Time Entry: 45 Therapeutic Activity 1: Pt semi supine at start of session, amenable to therapy. Vitals taken. Pt completed bed mobility and ambulation and transfers with supervision throughout session, no LOB noted. Pt participated in dynamic standing squigs activity at mirror in room with no AD, with bucket to put them away across room. Pt pulled squigs three at a time and ambed to put them away. Pt able to hold conversation with no difficulty on different topic during activity. Therapeutic Activity 2: Pt participated in fishing activity in room in standing with supervision and no AD, focusing on dynamic balance. Pt able to retrieve all fish, adjusting ODILON and positioning when needed without cues. No LOB noted, pt retrieved approx 20 fish from ground with magnetic fishing pole. Therapeutic Activity 3: Pt ambed from room to dining room with supervision and no AD. Pt participated in standing gift wrapping activity. Pt prompted to determin what materials are needed, and pt amb'ed to gym to OT/PT offices to retrieve tape and scissiors with supervision. Pt returned to dining parra and completed standing gift wrapping while holding conversation about different topic. No rest breaks needed, no LOB. Pt returned retrieved items back to office. Therapeutic Exercise Therapeutic Exercise Time Entry: 15 Therapeutic Exercise Activity 1: Pt participated in trunk strengthening exercises on the yoga ball near parallel bars. Pt completed 3 sets, 10 reps on ball with no UE support: trunk twists with 5# weight, pelvic posterior to anterior tilts, pelvic circles in both directions. No LOB, rest breaks provided between sets. Wooden step provided to prevent sliding of feet even with non slip socks donned.Pt utilizied parallel bars in between sets to readjust postion. Pt amb'ed back to room with no LOB,and transitioned to sitting EOB. Pt had visitors in room. Call bryson and bed alarm in place at end of session. OT Assessment OT Assessment OT Assessment Results: Decreased ADL status, Decreased upper extremity strength, Decreased endurance, Decreased fine motor control, Decreased functional mobility, Decreased IADLs Prognosis: Excellent Evaluation/Treatment Tolerance: Patient tolerated treatment well Medical Staff Made Aware: (Aware of pain.) OT Plan Plan Treatment Interventions: ADL retraining, Functional transfer training, UE strengthening/ROM, Endurance training, Equipment evaluation/education, Neuromuscular reeducation, Fine motor coordination activities OT Plan: Skilled OT OT Frequency : 5-7 days per week OT Duration of Sessions: 60-90 min per session OT Treatments per day: 1 time per day OT - Evaluation Status: Complete Goals: Encounter Problems Encounter Problems (Active) Template: Occupational Therapy Problem: OT Varnishing Unit Tool Setter Goals Dates: Start: 10/26/24 Goal: Mod I LB dressing Dates: Start: 10/26/24 Expected End: 11/09/24 Goal: S bathing in shower, including tub shower txfer. Dates: Start: 10/26/24 Expected End: 11/09/24 Goal: Toileting including txfer with LRAD mod I Dates: Start: 10/26/24 Expected End: 11/09/24 Goal: Pt will perform light meal prep at LRAD with mod I, implementing EC techniques prn Dates: Start: 10/26/24 Expected End: 11/09/24 Goal: pt will perform grooming in stand at sink with mod I Dates: Start: 10/26/24 Expected End: 11/09/24 Goal: Pt will decrease L UE 9 hole peg score by 8 seconds in order to increased INDEPENDENCE with clothing fasteners Dates: Start: 10/26/24 Expected End: 11/09/24 Description: Problem: OT Short Term Goals Dates: Start: 10/26/24 Goal: Pt will perform sponge bathing S level Dates: Start: 10/26/24 Expected End: 11/02/24 Outcomes Date/Time User Outcome 11/04/24927 Jarret Bullock OT Progressing Goal: Pt will toilet with S, with LRAD Dates: Start: 10/26/24 Expected End: 11/02/24 Outcomes Date/Time User Outcome 11/04/24927 Jarret Bullock OT Progressing Goal: Pt will retrieve clothing from closet RW level with no more than S Dates: Start: 10/26/24 Expected End: 11/02/24 Outcomes Date/Time User Outcome 11/04/24927 Jarret Bullock OT Progressing Goal: Pt will perform tub shower txfer with steadying A Dates: Start: 10/26/24 Expected End: 11/02/24 Outcomes Date/Time User Outcome 11/04/24927 Jarret Bullock OT Progressing Goal: Pt will recall 5 energy conservation techniques to implement during ADL/IADLs. Dates: Start: 10/26/24 Expected End: 11/02/24 Encounter Problems (Resolved) There are no resolved problems. Education Documentation ADL Training, taught by LALA Urena at 11/05/2024 2:56 PM. Learner: Patient Readiness: Acceptance Method: Explanation, Demonstration Response: Verbalizes Understanding, Demonstrated Understanding Home Exercise Program, taught by LALA Urena at 11/05/2024 2:56 PM. Learner: Patient Readiness: Acceptance Method: Explanation, Demonstration Response: Verbalizes Understanding, Demonstrated Understanding Body Mechanics, taught by LALA Urena at 11/05/2024 2:56 PM. Learner: Patient Readiness: Acceptance Method: Explanation, Demonstration Response: Verbalizes Understanding, Demonstrated Understanding Education Comments No comments found. Start/Stop Time OT Time Calculation OT Start Time: 1300 OT Stop Time: 1400 OT Time Calculation (min): 60 min Therapy Minutes: Occupational Therapy OT Individual: 60 * Michelle Pool, PT - 11/05/2024 11:52 AM EST [facility] Physical Therapy Treatment Note 11/05/2024 Patient: Estephania Bill : 1960 Age: 63 y.o. Gender: female Primary Language: Polish Diagnosis: No Principal Problem: There is no principal problem currently on the Problem List. Please update the Problem List and refresh. No past medical history on file. No past surgical history on file. Allergies: has No Known Allergies. Precautions: Medical Precautions: Fall Risk Safety Interventions: Call bryson within reach, Bed alarm RUE Weight Bearing Status: Full LUE Weight Bearing Status: Full RLE Weight Bearing Status: Full LLE Weight Bearing Status: Full NURSING RECOMMENDATIONS Bed Mobility: supervision Transfers: min A no AD Ambulation: min A no AD SUBJECTIVE Pt report: I have diarrhea..My Right shoulder really hurts Pain: Pain Assessment: 0-10 Pain Score: 8 Pain Type: Chronic pain Pain Location: Shoulder Pain Orientation: Right OBJECTIVE General Observation: Patient lying in bed, agreeable to participating Vitals: BP: 132/82 Heart Rate: 79 General/Functional Assessments: Activity Tolerance Endurance: Endurance does not limit participation in activity Procedure/Treatment Therapeutic Activities: Therapeutic Activity Time Entry: 90 Bed mobility sit to/from supine Ind Transfer sit to stand from bed and multiple chairs with distant Sup GT without AD approx 500 feet x 2 with sup High level dynamic balance activities without AD with sup for: Obstacle course around 8 cones x 2 with pt picking up all cones following, step over various weighted dowels x 5 x2 with pt picking up, carrying and returning dowels to appropriate place in gym, walking on uneven surfaces with 2 different mat thicknesses, toe touch onto 8 inch steps 10 x 3, ring toss 20 x 2 using left and right hand, armenta bag toss incorporating crossing of midline to left and right 15 x 2 with pt tossing to left, right and center ring, ball bounce x 20, making bed with change of pillow cases, getting clothing in and out of closet, brushing teeth at sink. Following therapy, pt in bed, call bryson in reach, bed alarm on, all needs met and RN notified. Education: Patient educated re [facility], home safety, and safety on unit ASSESSMENT Patient progressing toward all goals, No loss of balance noted during functional activities or highlevel standing balance activities 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 Goals Dates: Start: 10/26/24 Goal: Thom bed mobility Dates: Start: 10/26/24 Expected End: 11/09/24 Goal: Thom transfers LRAD Dates: Start: 10/26/24 Expected End: 11/09/24 Goal: Thom ambulation x150ft LRAD Dates: Start: 10/26/24 Expected End: 11/09/24 Goal: Thom threshold step with RW Dates: Start: 10/26/24 Expected End: 11/09/24 Goal: Thom wheelchair mobility Dates: Start: 10/26/24 Expected End: 11/09/24 Problem: PT Short Term Goals Dates: Start: 10/26/24 Goal: supervision bed mobility Dates: Start: 10/26/24 Expected End: 11/02/24 Goal: steadying assist transfers LRAD Dates: Start: 10/26/24 Expected End: 11/02/24 Goal: steadying assist ambulation x50ft LRAD Dates: Start: 10/26/24 Expected End: 11/02/24 Goal: threshold step with RW partial A Dates: Start: 10/26/24 Expected End: 11/02/24 Encounter Problems (Resolved) There are no resolved problems. Session Start/Stop Time: 1000 1130 Therapy Minutes Physical Therapy PT Individual: 90 * Katt Garg RN - 11/05/2024 2:29 AM EST Problem: Cognitive: Georges Garfield Fall Risk Goal: Last Known Fall Outcome: Progressing Goal: Mobility requiring assistance of person or device Outcome: Progressing Goal: Dizziness Outcome: Progressing Goal: Medications Outcome: Progressing Goal: Mental Status/LOC/Awareness Outcome: Progressing Goal: Toileting Needs Outcome: Progressing Goal: Volume and Electrolyte Status Outcome: Progressing Goal: Communication/Sensory Outcome: Progressing Goal: Behavior Outcome: Progressing Goals: Identify possible barriers to meeting goals/advancing plan of care: Pt working towards rehab goals. Stability of the patient: Moderately Unstable - Medium risk of patient condition declining or worsening End of Shift Summary: IVF NS completed at 0133. PIV RFA flushed easily. Supervision with quad cane to BR. Vx1. Bed alarm on. Bed locked/low. Call bryson within reach. * Juliann Man DO - 11/04/2024 4:41 PM EST Images from the original note were not included. [facility] Daily Progress Note Patient name: Estephania Blil : 1960 SUBJECTIVE: Patient had an episode of increased left-sided weakness with altered mental status and facial twitching yesterday. Stroke code was called. She was evaluated in the ER. Workup was negative. Symptoms improved. She returned to the rehab unit yesterday. Patient seen and examined at bedside today. No acute events overnight. Denies headaches, dizziness,shortness of breath, chest pain, nausea, constipation, and pain. No new concerns today. States thatshe feels as though she is back to baseline. OBJECTIVE: Vitals: 11/04/24 0830 11/04/24 1026 11/04/24 1207 11/04/24 1546 BP: 89/54 99/68 133/79 (!) 142/76 BP Location: Left arm;Upper Patient Position: Lying Pulse: 80 69 70 Resp: 17 Temp: 36.9 ??C (98.4 ??F) TempSrc: SpO2: 100% 99% Weight: Physical Examination: General: Alert, in no acute cardiopulmonary distress. Mental Status: Oriented to person, place and time. Normal affect. Head: Normocephalic. Eyes: Extraocular muscles grossly intact. Ear, Nose and Throat: Oropharynx clear, mucous membranes moist. Ears and nose without masses, lesions or deformities. Neck: Supple, Trachea midline. Respiratory: Clear to auscultation and percussion. No wheezing, rales or rhonchi. Cardiovascular: Heart sounds normal. No thrills. Regular rate and rhythm, no murmurs, rubs or gallops. Gastrointestinal: Abdomen soft, non-tender, non-distended. Normal bowel sounds. Neurologic: Cranial nerves II-XII grossly intact. Deep tendon reflexes +2 bilaterally. Negative Hoffmans sign bilaterally. Flexor plantar response bilaterally. Negative clonus bilaterally. Moves all extremities spontaneously. Skin: No rashes or lesions. No petechiae or purpura. No edema. Musculoskeletal: No cyanosis or clubbing. No gross deformities. Right shoulder AROM without pain today. No erythema, warmth, or edema of the right shoulder appreciated. Strength 5/5 throughout right upper and lower extremities. Strength 4+/5 throughout left upper and lower extremities. CURRENT INPATIENT MEDICATIONS: Current Facility-Administered Medications: acetaminophen (TYLENOL) tablet 1,000 mg, 1,000 mg, oral, q8h PRN, Almita Magallanes NP, 1,000 mg at 11/02/24 1447 albuterol 2.5 mg /3 mL (0.083 %) nebulizer solution 2.5 mg, 2.5 mg, nebulization, q6h PRN, Almita Gabriel NP aspirin chewable tablet 81 mg, 81 mg, oral, Daily, Almita Magallanes NP, 81 mg at 11/04/24 1016 atorvastatin (LIPITOR) tablet 40 mg, 40 mg, oral, Nightly, Almita Magallanes NP, 40 mg at 11/03/24 2242 budesonide (PULMICORT) 1 mg/2 mL nebulizer solution 0.5 mg, 0.5 mg, nebulization, Daily, 0.5 mg at 11/04/24 1015 AND formoterol (PERFOROMIST) 20 mcg/2 mL nebulizer solution 20 mcg, 20 mcg, nebulization, BID, Almita Magallanes NP, 20 mcg at 11/04/24 1014 clopidogreL (PLAVIX) tablet 75 mg, 75 mg, oral, Daily, Almita Magallanes NP, 75 mg at 11/04/24 1015 dextrose (D50W) 50% injection 12.5 g, 12.5 g, intravenous, q15 min PRN, Almita Magallanes NP dextrose (D50W) 50% injection 25 g, 25 g, intravenous, q15 min PRN, Almita Magallanes NP dextrose 15 gram/60 mL oral solution 15 g, 15 g, oral, q15 min PRN, Almita Magallanes NP dextrose 15 gram/60 mL oral solution 30 g, 30 g, oral, q15 min PRN, Almita Magallanes NP docusate sodium (COLACE) capsule 100 mg, 100 mg, oral, BID, Almita Magallanes NP, 100 mg at 11/03/24 2242 DULoxetine (CYMBALTA) DR capsule 60 mg, 60 mg, oral, Daily, Almita Magallanes NP, 60 mg at 11/04/24 1015 ferrous sulfate tablet 325 mg, 325 mg, oral, Daily, Almita Magallanes NP, 325 mg at 11/04/24 1015 gabapentin (NEURONTIN) capsule 400 mg, 400 mg, oral, q8h SUNIL, Almita Magallanes NP, 400 mg at 11/04/24 1426 Glucagon HCl (rDNA) injection 1 mg, 1 mg, intramuscular, Once PRN, Almita Magallanes NP insulin lispro injection 2-12 Units, 2-12 Units, subcutaneous, TID AC, Almita Magallanes NP, 2 Units at10/30/24 1709 lidocaine 4 % patch 1 patch, 1 patch, Topical, Daily, Almita Magallanes NP, 1 patch at 11/04/24 1013 magnesium hydroxide (MILK OF MAGNESIA) 400 mg/5 mL suspension 30 mL, 30 mL, oral, Nightly PRN, Almita Magallanes NP, 30 mL at 10/28/24 2115 oxyCODONE (ROXICODONE) immediate release tablet 2.5 mg, 2.5 mg, oral, q4h PRN, Almita Magallanes NP, 2.5 mg at 11/04/24 0520 pantoprazole (PROTONIX) EC tablet 40 mg, 40 mg, oral, q AM AC, Almita Magallanes NP, 40 mg at 11/04/24 0517 senna (SENOKOT) tablet 17.2 mg, 2 tablet, oral, Nightly, Almita Magallanes NP, 17.2 mg at 11/03/24 2242 sodium chloride 0.9 % flush 3 mL, 3 mL, intravenous, q8h SUNIL, Almita Magallanes NP, 3 mL at 11/04/24 1428 sodium chloride 0.9 % infusion, 75 mL/hr, intravenous, Continuous, UMA Saez, Last Rate:75 mL/hr at 11/04/24 1147, 75 mL/hr at 11/04/24 1147 traZODone (DESYREL) tablet 150 mg, 150 mg, oral, Nightly, Almita Magallanes NP, 150 mg at 11/03/24 2241 LABS: Lab Results Component Value Date WBC 6.9 11/03/2024 RBC 4.60 11/03/2024 HGB 11.0 (L) 11/03/2024 HCT 36.1 11/03/2024 MCV 79.2 11/03/2024 MCHC 30.5 (L) 11/03/2024 RDW 17.0 (H) 11/03/2024 PLT 224 11/03/2024 MPV 10.1 11/03/2024 NRBC 0.0 11/03/2024 DIFF Lab Results Component Value Date LYMPHOPCT 36.7 11/03/2024 NEUTROABS 3.43 11/03/2024 LYMPHSABS 2.52 11/03/2024 MONOABS 0.68 11/03/2024 EOSABS 0.14 11/03/2024 BASOSABS 0.02 11/03/2024 IMMGRANABS 0.08 (H) 11/03/2024 RETIC No results found for: RETIC , RETICCTPCT Lab Results Component Value Date NA 134 11/03/2024 K 4.1 11/03/2024 CL 102 11/03/2024 CO2 27 11/03/2024 GLUCOSE 84 11/04/2024 BUN 23 11/03/2024 CREATININE 0.80 11/03/2024 CALCIUM 8.6 11/03/2024 PROT 6.3 11/03/2024 ALBUMIN 3.2 11/03/2024 BILITOT 0.4 11/03/2024 AST 20 11/03/2024 ALT 28 11/03/2024 MG 1.9 11/03/2024 ALKPHOS 72 11/03/2024 EGFR 83 11/03/2024 IMPRESSION & PLAN: #Impaired mobility and self-care -Secondary to acute CVA -Continue PT, OT, APARTMENT LEASING AGENT, and nursing care #Acute CVA #Left Hemiparesis -s/p TNK 10/19/2024 -Aspirin 81 mg daily -Plavix 75 mg daily -Atorvastatin 40 mg nightly -continue therapies -Follow up with Neurology stroke clinic after DC #Altered mental status #Left facial and LUE twitching -Symptoms occurred temporarily on 11/03, now resolved -EEG ordered and pending to rule out seizure activity #HFpEF #CAD s/p CABG in 2019 #Hypertension -Entresto 97-103 mg 1 tab BID --> decreased to 24-26mg 1 tab BID with holding parameters on 10/26 due to hypotension -Carvedilol 25 mg BID w/ meals --> decreased to 12.5mg BID w/meals on 10/26 due to hypotension --> discontinued on 10/27 due to hypotension #Hyperlipidemia -Atorvastatin 40 mg nightly #Prediabetes -A1C 6.1 on 10/26 -Diabetic diet -Sliding scale w/POCs #Chronic Pain #Pain management -Duloxetine 60mg daily -Gabapentin 800 mg Q8H --> decreased to 600mg Q8H on 10/26 due to creatinine clearance --> decreased to 400mg Q8H on 10/28 due to hypotension -Acetaminophen 1000mg Q8H PRN pain #Right shoulder pain -Xray right shoulder 10/26 negative -s/p right shoulder intra-articular steroid injection on 10/28 -Lidocaine patch daily -heat/ice PRN -Oxycodone 2.5mg Q4H PRN #Anxiety -Trazodone 150 mg nightly #GERD -Pantoprazole 40mg daily #Anemia -Ferrous sulfate 325mg daily #Bowel management -Colace 100mg BID -Senna 2 tabs QHS DVTP: Aspirin 81 mg po daily and Plavix 75 mg po daily w/ compression device * BENEDICT Quintero - 11/04/2024 4:10 PM EST Speech Language Pathology Speech Language Pathology Treatment Subjective APARTMENT LEASING AGENT Start Time: 1300 APARTMENT LEASING AGENT Stop Time: 1400 APARTMENT LEASING AGENT Time Calculation (min): 60 min Subjective: Pt was alert and sitting upright in bed for the session. Pt reported that she was fatigued from yesterday but agreeable to session. No significant changes noted. Objective General Visit Info General Family/Caregiver Present: No Treatment Speech and Language Speech Treatment (Individual) Time Entry: 30 Speech: Pt reviewed speech strategies at the start of the task. Pt was able to read x3 paragraphs and only x2 stuttering behaviors were noted (repetition of sound and block). Pt reported that she feels like her speech is better than before. Verbal Expression: Pt was able to 6/10 items in an abstract category indep. and 8/10 given min A for use of strategies and 10/10 given mod A for idea generation. Cognitive Skills Therapeutic Interventions Cognitive Skills Direct Contact Time Entry: 30 Memory: Pt tasked w/ recalling 4/4 engery conservation techinques recommended by OT. Pt was able torecall 4/4 given 30-second delay, 3/4 given 1-min delay, 4/4 given 2-min delay, 3/4 given 5-min delay, and 3/4 given 10-min delay. Pt engaged in a conversation about energy conservation and self-carefor d/c Problem Solving: Pt was able to answer Counting Money on CT julian w/ 100% accuracy and money math word problems w/ 50% accuracy indep. and 70% given min A for calculations and 100% given visual of calculations Attention/Concentration: Pt was able to put a mock appt into her phone indep. given x1 verbal cue to double check the appt details w/ the phone Other Cognitive Skills Activity: Pt engaged in a conversation about if she has noticed any cognitive changes since her hospitalization yesterday. Pt reported that she did not notice any significant changes. Assessment/Plan APARTMENT LEASING AGENT Assessment APARTMENT LEASING AGENT Assessment Results: Cognitive impairments Evaluation/Treatment Tolerance: Patient tolerated treatment well Plan Treatment/Interventions: Cognitive linguistic functioning APARTMENT LEASING AGENT Plan: Skilled APARTMENT LEASING AGENT APARTMENT LEASING AGENT Frequency: 5-7 days per week APARTMENT LEASING AGENT Duration of Sessions: 30-60 min per session APARTMENT LEASING AGENT Treatments per day: 1 time per day Goals Encounter Problems Encounter Problems (Active) Template: Speech Therapy Problem: APARTMENT LEASING AGENT Residential Goals Dates: Start: 10/26/24 Goal: Pt will improve cognitive linguistic skills for d/c setting. Dates: Start: 10/26/24 Expected End: 11/05/24 Problem: APARTMENT LEASING AGENT Short Term Goals Dates: Start: 10/26/24 Goal: Pt will participate in additional cognitive/language/speech assessment. (Resolved) Dates: Start: 10/26/24 Expected End: 11/02/24 Resolved: 11/04/24 Outcomes Date/Time User Outcome 11/04/24 BENEDICT Beyer Completed Goal: Pt will complete a variety of mod-higher level naming tasks at 90% accuracy given min A. Dates: Start: 10/26/24 Expected End: 11/02/24 Outcomes Date/Time User Outcome 11/04/24 BENEDICT Beyer Progressing Goal: Pt will improve complex attention for visual and/or auditory tasks to 90% accuracy given min A Dates: Start: 10/27/24 Expected End: 11/03/24 Description: Outcomes Date/Time User Outcome 11/04/24 BENEDICT Beyer Progressing Goal: Pt will improve immediate and delayed recall of functional information given mod A for encoding and min A for retrieval - 90% accuracy Dates: Start: 10/27/24 Expected End: 11/03/24 Description: Outcomes Date/Time User Outcome 11/04/24 [id number] Barajas Not Progressing Goal: Pt will use fluency strategies in a variety of speech scenarios given min A in 4 out of 5 opportunities Dates: Start: 10/27/24 Expected End: 11/03/24 Description: Outcomes Date/Time User Outcome 11/04/24 BENEDICT Terry Progressing Goal: Pt will complete basic/functional word problems related to time/money at 80% accuracy given mod A. Dates: Start: 10/31/24 Expected End: 11/07/24 Description: Outcomes Date/Time User Outcome 11/04/24 BENEDICT Terry Not Progressing Encounter Problems (Resolved) There are no resolved problems. Education Documentation Speech/Language, taught by BENEDICT Quintero at 11/04/2024 4:10 PM. Learner: Patient Readiness: Acceptance Method: Explanation Response: Verbalizes Understanding Cognition, taught by BENEDICT Quintero at 11/04/2024 4:10 PM. Learner: Patient Readiness: Acceptance Method: Explanation Response: Verbalizes Understanding Education Comments No comments found. Associated attestation - Edwina Nassar SLP - 11/04/2024 4:44 PM EST I attest that I, Tameka Nassar M.S.,[facility]-APARTMENT LEASING AGENT, was physically involved in the ongoing assessment, decision making, and interventions provided during today's patient care session. I have reviewed all documentation for today's 11/04/24, entered by Speech Therapy Fellow, Charlene Gottlieb, and further attest that it is an accurate clinical record of today's encounter, including accurate and appropriate charges. * Desirae Garza, NEGATIVE TURNER APPRENTICE - 11/04/2024 3:48 PM EST [facility] Physical Therapy Treatment Note 11/04/2024 Patient: Estephania Bill : 1960 Age: 63 y.o. Gender: female Primary Language: Polish Diagnosis: No Principal Problem: There is no principal problem currently on the Problem List. Please update the Problem List and refresh. No past medical history on file. No past surgical history on file. Allergies: has No Known Allergies. Precautions: Medical Precautions: Fall Risk Safety Interventions: Call bryson within reach RUE Weight Bearing Status: Full LUE Weight Bearing Status: Full RLE Weight Bearing Status: Full LLE Weight Bearing Status: Full NURSING RECOMMENDATIONS Bed Mobility: supervision Transfers: min A no AD Ambulation: min A no AD SUBJECTIVE Pt report: I already did it today. Pain: Pain Assessment: No/denies pain Procedure/Treatment: Therapeutic Activities: Therapeutic Activity Time Entry: 60 Therapeutic Activity 1: Pt in bed IV in place RUE. Ind bed mob. Sup xfers and Sup amb without AD assist for IV pole room to/from gym 350'. balance acts as follows, step on/off 4 step left foot x 10 right foot x 10 and alternating feet x 10 Sup no LOB, alternating cone tapping on/off 12 cone CGA no LOB. sidestepping left and right x 25' Sup, backward amb Sup no LOB. In room Sup amb to/from BR, Ind in BR. supine SLRs 3 x 10 reps, bridges 3 x 10 reps. Education: Education Documentation Mobility Training, taught by Desirae Garza PTA at 11/04/2024 3:48 PM. Learner: Patient Readiness: Acceptance Method: Explanation, Demonstration Response: Verbalizes Understanding, Demonstrated Understanding Education Comments No comments found. ASSESSMENT PT Assessment Evaluation/Treatment Tolerance: Patient tolerated treatment well Plan of Care Plan Treatment/Interventions: Functional transfer training, LE strengthening/ROM, Endurance training, Bed mobility, Equipment eval/education, Patient/family training, Gait training, Continued evaluation, Balance training PT Plan: Skilled PT PT Frequency: 5-7 days per week PT Duration of Sessions: 60-90 min per session PT Discharge Recommendations: (TBD) Equipment Recommended: TBD Problems/Goals 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 Goals Dates: Start: 10/26/24 Goal: Thom bed mobility Dates: Start: 10/26/24 Expected End: 11/09/24 Goal: Thom transfers LRAD Dates: Start: 10/26/24 Expected End: 11/09/24 Goal: Thom ambulation x150ft LRAD Dates: Start: 10/26/24 Expected End: 11/09/24 Goal: Thom threshold step with RW Dates: Start: 10/26/24 Expected End: 11/09/24 Goal: Thom wheelchair mobility Dates: Start: 10/26/24 Expected End: 11/09/24 Problem: PT Short Term Goals Dates: Start: 10/26/24 Goal: supervision bed mobility Dates: Start: 10/26/24 Expected End: 11/02/24 Goal: steadying assist transfers LRAD Dates: Start: 10/26/24 Expected End: 11/02/24 Goal: steadying assist ambulation x50ft LRAD Dates: Start: 10/26/24 Expected End: 11/02/24 Goal: threshold step with RW partial A Dates: Start: 10/26/24 Expected End: 11/02/24 Encounter Problems (Resolved) There are no resolved problems. Session Start/Stop Time: 1400 1500 Therapy Minutes Physical Therapy PT Individual: 60 * Lore Cortes, PT - 11/04/2024 11:00 AM EST [facility] Physical Therapy Treatment Note 11/04/2024 Patient: Estephania Bill : 1960 Age: 63 y.o. Gender: female Primary Language: Polish Diagnosis: CVA No past medical history on file. No past surgical history on file. Allergies: has No Known Allergies. Precautions: Medical Precautions: Fall Risk Safety Interventions: Call bryson within reach RUE Weight Bearing Status: Full LUE Weight Bearing Status: Full RLE Weight Bearing Status: Full LLE Weight Bearing Status: Full NURSING RECOMMENDATIONS Bed Mobility: supervision Transfers: min A no AD Ambulation: min A no AD SUBJECTIVE Pt report: I'm just so tired Pain: Pain Assessment: 0-10 Pain Score: 7 Pain Location: Shoulder Pain Orientation: Right OBJECTIVE General Observation: Pt supine in bed upon arrival to session, agreeable to PT session. Vitals: BP: 133/84 Heart Rate: 65 Procedure/Treatment: Therapeutic Activities: Therapeutic Activity Time Entry: 15 Pt supine in bed upon arrival to session. Completion supine to sitting with supervision. Completionassessment of pt LE strength and functional mobility after patient return from ED due to stroke alert on 11/03/24: RLE hip flexion, knee extension, knee flexion, ankle dorsiflexion, ankle plantarflexion - 5/5 LLE hip flexion, knee extension, knee flexion, ankle dorsiflexion, ankle plantarflexion - 4/5 Taking vitals, defer to above. Ambulation into bathroom with supervision no AD, pt reaching for door frame on R side upon enteringbathroom, no loss of balance. Supervision sit to toilet and stand from toilet without use of grab bar. Ambulation x10ft with no AD and supervision back to edge of bed. Unchanged strength and functional mobility at this point in time. Neuromuscular Reeducation: Balance/Neuromuscular Re-Education Neuromuscular Re-Education Time Entry: 15 Completion [id number] ambulation with seated rest break in middle, no AD and supervision, no losses ofbalance throughout. Completion with alternating periods of fast and slow walking on first trial. Able to smoothly change speeds with no LOB. Completion ambulation with vertical and horizontal head turns on command, no loss of balance or path deviations. Ending back in room. Requesting to rest in bed. Supervision sit to supine. Bed alarm on, call bryson given, all needs met. Education: Education Documentation Precautions, taught by Lore Cortes PT at 11/04/2024 11:37 AM. Learner: Patient Readiness: Acceptance Method: Explanation, Demonstration Response: Verbalizes Understanding, Demonstrated Understanding Body Mechanics, taught by Lore Cortes PT at 11/04/2024 11:37 AM. Learner: Patient Readiness: Acceptance Method: Explanation, Demonstration Response: Verbalizes Understanding, Demonstrated Understanding Mobility Training, taught by Lore Cortes PT at 11/04/2024 11:37 AM. Learner: Patient Readiness: Acceptance Method: Explanation, Demonstration Response: Verbalizes Understanding, Demonstrated Understanding Discharge Planning, taught by Lore Cortes PT at 11/04/2024 11:37 AM. Learner: Patient Readiness: Acceptance Method: Explanation, Demonstration Response: Verbalizes Understanding, Demonstrated Understanding Fall Precautions, taught by Lore Cortes PT at 11/04/2024 11:37 AM. Learner: Patient Readiness: Acceptance Method: Explanation, Demonstration Response: Verbalizes Understanding, Demonstrated Understanding Education Comments No comments found. ASSESSMENT PT Assessment PT Assessment Results: Decreased strength, Decreased endurance, Impaired balance, Impaired gait, Decreased mobility, Decreased coordination Prognosis: Good Evaluation/Treatment Tolerance: Patient tolerated treatment well Comments: Pt with good tolerance to treatment session. Pt with unchanged LE strength and functionalmobility status at this point in time. continue with established plan of care. Will continue to benefit from skilled physical therapy to decrease limitations. 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 Goals Dates: Start: 10/26/24 Goal: Thom bed mobility Dates: Start: 10/26/24 Expected End: 11/09/24 Goal: Thom transfers LRAD Dates: Start: 10/26/24 Expected End: 11/09/24 Goal: Thom ambulation x150ft LRAD Dates: Start: 10/26/24 Expected End: 11/09/24 Goal: Thom threshold step with RW Dates: Start: 10/26/24 Expected End: 11/09/24 Goal: Thom wheelchair mobility Dates: Start: 10/26/24 Expected End: 11/09/24 Problem: PT Short Term Goals Dates: Start: 10/26/24 Goal: supervision bed mobility Dates: Start: 10/26/24 Expected End: 11/02/24 Goal: steadying assist transfers LRAD Dates: Start: 10/26/24 Expected End: 11/02/24 Goal: steadying assist ambulation x50ft LRAD Dates: Start: 10/26/24 Expected End: 11/02/24 Goal: threshold step with RW partial A Dates: Start: 10/26/24 Expected End: 11/02/24 Encounter Problems (Resolved) There are no resolved problems. Session Start/Stop Time: 1100 1130 Therapy Minutes Physical Therapy PT Individual: 30 * Jarret Bullock, OT - 11/04/2024 8:30 AM EST [facility] Occupational Therapy Treatment Note 11/04/24 Patient: Estephania Bill : 1960 Age: 63 y.o. Gender: female Diagnosis: No Principal Problem: There is no principal problem currently on the Problem List. Please update the Problem List and refresh. Primary Rehab (Etiologic) Diagnosis: Patient Active Problem List Diagnosis Stroke (CMS/HCC) Diabetes (CMS/HCC) CVA (cerebral vascular accident) (CMS/HCC) Noncompliance HTN (hypertension) TIA (transient ischemic attack) PMH: No past medical history on file. PSH: No past surgical history on file. Allergies: has No Known Allergies. Precautions: Precautions Medical Precautions: Fall Risk Safety Interventions: Call bryson within reach RUE Weight Bearing Status: Full LUE Weight Bearing Status: Full RLE Weight Bearing Status: Full LLE Weight Bearing Status: Full Vitals: BP: 89/54 Heart Rate: 80 Supine in bed with dizziness present. Pain: Pain Assessment Pain Assessment: 0-10 Pain Score: 6 Pain Type: Acute pain Pain Location: Shoulder Pain Orientation: Right Subjective: I do feel a little dizzy. Procedures/Interventions: ADLs/IADLs Self Care/Home Management (ADLs) Time Entry: 75 Pt in elevated supine reporting fatigue. Vitals, assessed, see above. PA notified, requesting to push fluids. Pt requesting to toilet. Sitting EOB, BP 98/59, HR 93. Functional amb into bathroom at [facility] steadying A, pt appearing unsteady, reaching for door frame and occasionally placing B UEs on cane for balance. Pt toileted including txfer with steadying A with use of grab bar. Once back at EOB pt performed sponge bathing with overall S in stand to bathe buttock/ninoska area. Pt dressing UB/LB with S during stand. Post dressing pt reports improvements with dizziness. Short distance amb no AD to sink S, pt seated in w/c to perform oral hygiene with ROSEN. Pt requesting to get back to bed, pt stoodfrom w/c without breaks locked, S, re-educated on importance of locking breaks prior to stand. Seated EOB pt BP 115/72. Pt educated and provided printed handout of energy conservation techniques as related to ADL/IADL tasks. End of session pt in elevated supine with bed alarm on and call bryson in reach. Therapeutic Exercise Therapeutic Exercise Time Entry: 15 Pt engaged in UB there ex to increase B UE strength and overall endurance. With use of orange leveltheraband, Pt performed 10 reps X3 of elbow felxion, elbow extension, and L UE diagonal upward row.Attempted B row however increased pain in R shoulder. Moderate verbal cues for achieving target movement with elbow extension. Rest breaks taken throughout. During rest break pt able to recall 6/6 S/s of stroke with use of BE FAST acronym. OT Assessment OT Assessment OT Assessment Results: Decreased ADL status, Decreased upper extremity strength, Decreased endurance, Decreased fine motor control, Decreased functional mobility, Decreased IADLs (imapired balance.) Prognosis: Good Evaluation/Treatment Tolerance: Patient tolerated treatment well, Patient limited by fatigue and dizziness. Pt's BP imporved as session progressesd. DME order sent to [facility] to obtain shower chair at pt reports that hers at home is crooked due to improper it in shower and wobbles. PA aware of BP. Pt initially requiring steadying A, progressing to S at end of session. OT Plan Plan Treatment Interventions: ADL retraining, Functional transfer training, UE strengthening/ROM, Endurance training, Equipment evaluation/education, Neuromuscular reeducation, Fine motor coordination activities OT Plan: Skilled OT OT Frequency : 5-7 days per week OT Duration of Sessions: 60-90 min per session OT Treatments per day: 1 time per day OT - Evaluation Status: Complete Goals: Encounter Problems Encounter Problems (Active) Template: Occupational Therapy Problem: OT Residential Goals Dates: Start: 10/26/24 Goal: Mod I LB dressing Dates: Start: 10/26/24 Expected End: 11/09/24 Goal: S bathing in shower, including tub shower txfer. Dates: Start: 10/26/24 Expected End: 11/09/24 Goal: Toileting including txfer with LRAD mod I Dates: Start: 10/26/24 Expected End: 11/09/24 Goal: Pt will perform light meal prep at LRAD with mod I, implementing EC techniques prn Dates: Start: 10/26/24 Expected End: 11/09/24 Goal: pt will perform grooming in stand at sink with mod I Dates: Start: 10/26/24 Expected End: 11/09/24 Goal: Pt will decrease L UE 9 hole peg score by 8 seconds in order to increased INDEPENDENCE with clothing fasteners Dates: Start: 10/26/24 Expected End: 11/09/24 Description: Problem: OT Short Term Goals Dates: Start: 10/26/24 Goal: Pt will perform sponge bathing S level Dates: Start: 10/26/24 Expected End: 11/02/24 Outcomes Date/Time User Outcome 11/04/24 0928 Jarret Bullock OT Progressing Goal: Pt will toilet with S, with LRAD Dates: Start: 10/26/24 Expected End: 11/02/24 Outcomes Date/Time User Outcome 11/04/24927 Jarret Bullock OT Progressing Goal: Pt will retrieve clothing from closet RW level with no more than S Dates: Start: 10/26/24 Expected End: 11/02/24 Outcomes Date/Time User Outcome 11/04/2428 Jarret Bullock OT Progressing Goal: Pt will perform tub shower txfer with steadying A Dates: Start: 10/26/24 Expected End: 11/02/24 Outcomes Date/Time User Outcome 11/04/24927 Jarret Bullock OT Progressing Goal: Pt will recall 5 energy conservation techniques to implement during ADL/IADLs. Dates: Start: 10/26/24 Expected End: 11/02/24 Encounter Problems (Resolved) There are no resolved problems. Education Documentation Safe Use of DME, taught by Jarret Bullock OT at 11/04/2024 9:25 AM. Learner: Patient Readiness: Acceptance Method: Explanation, Demonstration Response: Verbalizes Understanding, Demonstrated Understanding, Needs Reinforcement Warning Signs and Symptoms of Stroke, taught by Jarret Bullock OT at 11/04/2024 9:25 AM. Learner: Patient Readiness: Acceptance Method: Explanation, Demonstration Response: Verbalizes Understanding, Demonstrated Understanding, Needs Reinforcement ADL Training, taught by Jarret Bullock OT at 11/04/2024 9:25 AM. Learner: Patient Readiness: Acceptance Method: Explanation, Demonstration Response: Verbalizes Understanding, Demonstrated Understanding, Needs Reinforcement Home Exercise Program, taught by Jarret Bullock OT at 11/04/2024 9:25 AM. Learner: Patient Readiness: Acceptance Method: Explanation, Demonstration Response: Verbalizes Understanding, Demonstrated Understanding, Needs Reinforcement Body Mechanics, taught by Jarret Bullock OT at 11/04/2024 9:25 AM. Learner: Patient Readiness: Acceptance Method: Explanation, Demonstration Response: Verbalizes Understanding, Demonstrated Understanding, Needs Reinforcement Discharge Planning, taught by Jarret Bullock OT at 11/04/2024 9:25 AM. Learner: Patient Readiness: Acceptance Method: Explanation, Demonstration Response: Verbalizes Understanding, Demonstrated Understanding, Needs Reinforcement Fall Precautions, taught by Jarret Bullock OT at 11/04/2024 9:25 AM. Learner: Patient Readiness: Acceptance Method: Explanation, Demonstration Response: Verbalizes Understanding, Demonstrated Understanding, Needs Reinforcement Education Comments No comments found. Start/Stop Time OT Time Calculation OT Start Time: 0830 OT Stop Time: 1000 OT Time Calculation (min): 90 min Therapy Minutes: Occupational Therapy OT Individual: 90 * Katt Garg RN - 11/04/2024 12:54 AM EST Problem: Cognitive: Georges Garfield Fall Risk Goal: Last Known Fall Outcome: Progressing Goal: Mobility requiring assistance of person or device Outcome: Progressing Goal: Dizziness Outcome: Progressing Goal: Medications Outcome: Progressing Goal: Mental Status/LOC/Awareness Outcome: Progressing Goal: Toileting Needs Outcome: Progressing Goal: Volume and Electrolyte Status Outcome: Progressing Goal: Communication/Sensory Outcome: Progressing Goal: Behavior Outcome: Progressing Goals: Identify possible barriers to meeting goals/advancing plan of care: Pt continues to work toward rehab goals. Stability of the patient: Moderately Unstable - Medium risk of patient condition declining or worsening End of Shift Summary: Pt used call bryson and requested assistance to toilet to void. C/O 2/10 H/A and states tired for being in ED. Bed alarm on. Bed locked/low. SCD boots on. * Bora Dow RN - 11/03/2024 9:30 PM EST At approximately 1999, Report was given to this RN from Svetlana in the ED. Reported that patient is not getting admitted and will be transferred back to Rehab unit. Reported that patient is at baseline, and that both CT and MRI were negative. No new orders at this time. Patient arrived on unit [id number]. Vitals and POC were obtained. Patient was assessed. Contacted Almita Magallanes NP who reinstated previous orders. Medications administered as well as a snack. Patient in bed comfortably. * Tomeka Ross NP - 11/03/2024 12:26 PM EST Rapid response stroke protocol was called and I responded Dr Barrera saw patient at the Ct scanner. Patient with a known past medical history significant for ischemic cardiomyopathy, prior CVAs with residual left-sided weakness, PVD/PAD. Apparently developed worsening left-sided weakness this morning she was aphasic initially now she is speaking although her speech is somewhat garbled. She is able to follow commands and she does have a left arm drift. She is clearly weaker on the left side. Sheis already on aspirin Plavix and atorvastatin. Patient will be taken emergently to the CAT scan and then to [facility] emergency room. Case and plan discussed with Dr. Barrera. * Carol Martínez RN - 11/03/2024 12:21 PM EST 11:55 am PCT Oz reported to nurse that pt c/o new left facial numbness . Patient reclining in bed, HOB up 30 degrees. Pt reported she started feeling the facial numbness around meal time, (meals delivered at 11:30-11:40. pt reported she did eat her lunch. Pt denied nausea or chest pain, denied lightheadedness or dizziness. Neuro changes reported to Medical Provider UMA Ferro,JUAN CARLOS, Provider to bedside for assessment, CODE STROKE called. Bp = 138/77, pulse= 86. POC glucose =110. Apical pulse regular with occasion irregular beats. library monitor applied: NSR with frequent PVCs. nurse assessment: pt alert/orient x 3, responsive to questions. Pt reported left face is numb, left arm and left leg feels weaker . Left hand grasp weaker than this earlier this am, pt not able to elevate left arm higher than 10 inches off bed. Pt tearful, speech more thick, pt not able to protrude tongue past lips. Pt assessment by rapid response team, Tomeka Ross,FOREIGN SERVICE OFFICER,JUAN CARLOS pt sent to ER. * Jarret Bullock OT - 11/03/2024 12:16 PM EST Estephania Bill was unable to complete her planned Occupational Therapy session with Jarret Bullock OT on 11/03/2024 due to illness (stroke alert called on pt prior to session). Session not attempted Next treatment attempt will be When medically cleared/off hold. * Carol Martínez RN - 11/03/2024 8:36 AM EST 08:30 pt awake, alert, consumed 75% am meal. Pt denied chest discomfort, lightheadedness, or shortness of breath. Bp= 102/57. Apical pulse= 68/regular with frequent pauses/irregular beats. Instructedpt to continue to drink oral fluids every hour as yesterday urine volume low with toiletting. * Lore Cortes, PT - 11/03/2024 8:30 AM EST [facility] Physical Therapy Treatment Note 11/03/2024 Patient: Estephania Bill : 1960 Age: 63 y.o. Gender: female Primary Language: Polish Diagnosis: CVA No past medical history on file. No past surgical history on file. Allergies: has No Known Allergies. Precautions: Medical Precautions: Fall Risk Safety Interventions: Call bryson within reach RUE Weight Bearing Status: Full LUE Weight Bearing Status: Full RLE Weight Bearing Status: Full LLE Weight Bearing Status: Full NURSING RECOMMENDATIONS Bed Mobility: supervision Transfers: min A no AD Ambulation: min A no AD SUBJECTIVE Pt report: I am feeling better today Pain: Pain Assessment: 0-10 Pain Score: 4 Pain Location: Shoulder Pain Orientation: Right OBJECTIVE General Observation: Pt supine in bed upon arrival to session, agreeable to PT session. Vitals: BP: 102/57 Heart Rate: 68 SpO2: 100 % Procedure/Treatment: Neuromuscular Reeducation: Balance/Neuromuscular Re-Education Neuromuscular Re-Education Time Entry: 60 Pt supine in bed upon arrival to session, agreeable to PT session. Completion supine to sit with supervision. Ambulation no AD into and out of bathroom, supervision. Washing hands no UE support with supervision. Ambulation x150ft from room down to therapy gym, cues to increase base of support, carrying full cup of water, no spilling. Completion 3x4 stairs with no railing. Supervision on ascent with step over step pattern, intermittent steadying assist on descent when descending with step over step pattern, supervision with step to pattern. Completion x3 floor transfers. Completing first trialwith use of mat table for UE support to achieve standing. Coming through quadruped, to tall kneel, to 1/2 kneeling to standing. Completion second and third trial using leg to push to stand, no outside UE support. Completing in quadruped to tall kneel to 1/2 kneeling pushing with BUEs on leg. All with supervision. Cues for sequencing and hand placement. Pt requesting to use bathroom, supervision ambulation into and out of bathroom. Completion scavenger ray exercise given list of 5 things to find on unit. Able to find all objects in order they appear in the hallway, when not in that specific order on list, supervision, ending scavenger ray in room. Requesting to use bathroom again. Supervision into and out of bathroom. Requesting to stay in room due to stomach discomfort. RN notified. Completion therapeutic exercise, see section. Requesting to stay in bed. Bed alarm on, call bryson given,all needs met. Therapeutic Exercise: Therapeutic Exercise Time Entry: 30 2x10 seated bilateral hip flexion 2x10 seated bilateral LAQ 2x10 seated bilateral heel and toe raises 2x10 supine bilateral SLR 2x10 supine glute bridge 2x10 sidelying bilateral SLR Education: Education Documentation Precautions, taught by Lore Cortes, PT at 11/03/2024 8:52 AM. Learner: Patient Readiness: Acceptance Method: Explanation, Demonstration Response: Verbalizes Understanding, Demonstrated Understanding Body Mechanics, taught by Lore Cortes PT at 11/03/2024 8:52 AM. Learner: Patient Readiness: Acceptance Method: Explanation, Demonstration Response: Verbalizes Understanding, Demonstrated Understanding Mobility Training, taught by Lore Cortes, PT at 11/03/2024 8:52 AM. Learner: Patient Readiness: Acceptance Method: Explanation, Demonstration Response: Verbalizes Understanding, Demonstrated Understanding Safe Use of DME, taught by Lore Cortes, PT at 11/03/2024 8:52 AM. Learner: Patient Readiness: Acceptance Method: Explanation, Demonstration Response: Verbalizes Understanding, Demonstrated Understanding Discharge Planning, taught by Lore Cortes PT at 11/03/2024 8:52 AM. Learner: Patient Readiness: Acceptance Method: Explanation, Demonstration Response: Verbalizes Understanding, Demonstrated Understanding Fall Precautions, taught by Lore Cortes PT at 11/03/2024 8:52 AM. Learner: Patient Readiness: Acceptance Method: Explanation, Demonstration Response: Verbalizes Understanding, Demonstrated Understanding Education Comments No comments found. ASSESSMENT PT Assessment PT Assessment Results: Decreased strength, Decreased endurance, Impaired balance, Impaired gait, Decreased mobility, Decreased coordination Prognosis: Good Evaluation/Treatment Tolerance: Patient limited by fatigue Comments: Pt with good tolerance to treatment session. functional mobility with supervision. Good tolerance to floor transfer exercise and scavenger ray. will continue to benefit from skilled physical therapy. Equipment: TBD Plan of Care Plan Treatment/Interventions: Functional transfer training, LE strengthening/ROM, Endurance training, Bed mobility, Equipment eval/education, Patient/family training, Gait training, Continued evaluation, Balance training PT Plan: Skilled PT PT Frequency: 5-7 days per week PT Duration of Sessions: 60-90 min per session PT Discharge Recommendations: (TBD) Equipment Recommended: TBD Problems/Goals Goals: Encounter Problems Encounter Problems (Active) Template: Physical Therapy Problem: PT Residential Goals Dates: Start: 10/26/24 Goal: Thom bed mobility Dates: Start: 10/26/24 Expected End: 11/09/24 Goal: Thom transfers LRAD Dates: Start: 10/26/24 Expected End: 11/09/24 Goal: Thom ambulation x150ft LRAD Dates: Start: 10/26/24 Expected End: 11/09/24 Goal: Thom threshold step with RW Dates: Start: 10/26/24 Expected End: 11/09/24 Goal: Thom wheelchair mobility Dates: Start: 10/26/24 Expected End: 11/09/24 Problem: PT Short Term Goals Dates: Start: 10/26/24 Goal: supervision bed mobility Dates: Start: 10/26/24 Expected End: 11/02/24 Goal: steadying assist transfers LRAD Dates: Start: 10/26/24 Expected End: 11/02/24 Goal: steadying assist ambulation x50ft LRAD Dates: Start: 10/26/24 Expected End: 11/02/24 Goal: threshold step with RW partial A Dates: Start: 10/26/24 Expected End: 11/02/24 Encounter Problems (Resolved) There are no resolved problems. Session Start/Stop Time: 0830 1000 Therapy Minutes Physical Therapy PT Individual: 90 * Juliann Man DO - 11/03/2024 8:29 AM EST Images from the original note were not included. [facility] INPATIENT REHABILITATION Daily Progress Note Patient name: Estephania Bill : 1960 SUBJECTIVE: Patient seen and examined at bedside today. No acute events overnight. Denies headaches, dizziness,shortness of breath, chest pain, nausea, constipation, and pain today. No new concerns. POC 82 thismorning. OBJECTIVE: Vitals: 11/02/24 1400 11/02/24 1525 11/02/24 2200 11/03/24 0030 BP: 108/79 123/68 119/75 125/72 BP Location: Right arm Patient Position: Lying Pulse: 94 86 70 88 Resp: 17 17 Temp: 36.9 ??C (98.4 ??F) 36.9 ??C (98.4 ??F) TempSrc: Oral SpO2: 100% 100% 96% Weight: Physical Examination: General: Alert, in no acute cardiopulmonary distress. Mental Status: Oriented to person, place and time. Normal affect. Head: Normocephalic. Eyes: Extraocular muscles grossly intact. Ear, Nose and Throat: Oropharynx clear, mucous membranes moist. Ears and nose without masses, lesions or deformities. Neck: Supple, Trachea midline. Respiratory: Clear to auscultation and percussion. No wheezing, rales or rhonchi. Cardiovascular: Heart sounds normal. No thrills. Regular rate and rhythm, no murmurs, rubs or gallops. Gastrointestinal: Abdomen soft, non-tender, non-distended. Normal bowel sounds. Neurologic: Cranial nerves II-XII grossly intact. Deep tendon reflexes +2 bilaterally. Negative Hoffmans sign bilaterally. Flexor plantar response bilaterally. Negative clonus bilaterally. Moves all extremities spontaneously. Skin: No rashes or lesions. No petechiae or purpura. No edema. Musculoskeletal: No cyanosis or clubbing. No gross deformities. Right shoulder AROM without pain today. No erythema, warmth, or edema of the right shoulder appreciated. Strength 5/5 throughout right upper and lower extremities. Strength 4+/5 throughout left upper and lower extremities. CURRENT INPATIENT MEDICATIONS: Current Facility-Administered Medications: acetaminophen (TYLENOL) tablet 1,000 mg, 1,000 mg, oral, q8h PRN, [facility] [place], 1,000 mg at 11/02/24 1447 albuterol 2.5 mg /3 mL (0.083 %) nebulizer solution 2.5 mg, 2.5 mg, nebulization, q6h PRN, [facility]MA Maria aspirin chewable tablet 81 mg, 81 mg, oral, Daily, [facility] [place], 81 mg at 11/03/24 0821 atorvastatin (LIPITOR) tablet 40 mg, 40 mg, oral, Nightly, [facility] [place], 40 mg at 11/02/24 2157 budesonide (PULMICORT) 1 mg/2 mL nebulizer solution 0.5 mg, 0.5 mg, nebulization, Daily, 0.5 mg at 11/03/24 0821 AND formoterol (PERFOROMIST) 20 mcg/2 mL nebulizer solution 20 mcg, 20 mcg, nebulization, BID, [facility] [place], 20 mcg at 11/03/24 0821 clopidogreL (PLAVIX) tablet 75 mg, 75 mg, oral, Daily, [facility] [place], 75 mg at 11/03/24 0822 dextrose (D50W) 50% injection 12.5 g, 12.5 g, intravenous, q15 min PRN, [facility] [place] dextrose (D50W) 50% injection 25 g, 25 g, intravenous, q15 min PRN, [facility] [place] dextrose 15 gram/60 mL oral solution 15 g, 15 g, oral, q15 min PRN, [facility] [place] dextrose 15 gram/60 mL oral solution 30 g, 30 g, oral, q15 min PRN, UMA Orona docusate sodium (COLACE) capsule 100 mg, 100 mg, oral, BID, UMA Orona, 100 mg at 822 DULoxetine (CYMBALTA) DR capsule 60 mg, 60 mg, oral, Daily, UMA Orona, 60 mg at 11/03/24 08 ferrous sulfate tablet 325 mg, 325 mg, oral, Daily, UMA Orona, 325 mg at 11/03/24 0822 gabapentin (NEURONTIN) capsule 400 mg, 400 mg, oral, q8h SUNIL, Juliann Man DO, 400 mg at 11/03/24 0534 Glucagon HCl (rDNA) injection 1 mg, 1 mg, intramuscular, Once PRN, UMA Orona insulin lispro injection 2-12 Units, 2-12 Units, subcutaneous, TID AC, UMA Orona, 2 Unitsat 10/30/24 1709 lidocaine 4 % patch 1 patch, 1 patch, Topical, Daily, Juliann Man DO, 1 patch at 11/03/24 0820 magnesium hydroxide (MILK OF MAGNESIA) 400 mg/5 mL suspension 30 mL, 30 mL, oral, Nightly PRN, UMA Orona, 30 mL at 10/28/24 2115 oxyCODONE (ROXICODONE) immediate release tablet 2.5 mg, 2.5 mg, oral, q4h PRN, Juliann Man DO, 2.5 mg at 11/02/24 2209 pantoprazole (PROTONIX) EC tablet 40 mg, 40 mg, oral, q AM AC, UMA Orona, 40 mg at 11/03/24 0534 sacubitriL-valsartan (ENTRESTO) 24-26 mg per tablet 1 tablet, 1 tablet, oral, BID, UMA Saez, 1 tablet at 11/01/24 2231 senna (SENOKOT) tablet 17.2 mg, 2 tablet, oral, Nightly, Ariadna Barone NP, 17.2 mg at 11/02/242157 sodium chloride 0.9 % flush 3 mL, 3 mL, intravenous, q8h SUNIL, Juliann Man, DO, 3 mL at 11/03/24 0535 traZODone (DESYREL) tablet 150 mg, 150 mg, oral, Nightly, UMA Orona, 150 mg at 11/02/242157 LABS: Lab Results Component Value Date WBC 4.9 10/29/2024 RBC 4.60 10/29/2024 HGB 10.8 (L) 10/29/2024 HCT 35.7 10/29/2024 MCV 78.1 (L) 10/29/2024 MCHC 30.3 (L) 10/29/2024 RDW 16.0 (H) 10/29/2024 PLT 227 10/29/2024 MPV 11.0 10/29/2024 NRBC 0.0 10/29/2024 DIFF Lab Results Component Value Date LYMPHOPCT 49.4 10/26/2024 NEUTROABS 1.69 10/26/2024 LYMPHSABS 2.66 10/26/2024 MONOABS 0.58 10/26/2024 EOSABS 0.42 10/26/2024 BASOSABS 0.02 10/26/2024 IMMGRANABS 0.01 10/26/2024 RETIC No results found for: RETIC , RETICCTPCT Lab Results Component Value Date NA 137 10/29/2024 K 4.6 10/29/2024 CL 107 10/29/2024 CO2 27 10/29/2024 GLUCOSE 82 11/03/2024 BUN 17 10/29/2024 CREATININE 0.75 10/29/2024 CALCIUM 8.8 10/29/2024 PROT 6.9 10/29/2024 ALBUMIN 3.4 10/29/2024 BILITOT 0.3 10/29/2024 AST 13 10/29/2024 ALT 14 10/29/2024 ALKPHOS 70 10/29/2024 EGFR 90 10/29/2024 IMPRESSION & PLAN: #Impaired mobility and self-care -Secondary to acute CVA -Continue PT, OT, APARTMENT LEASING AGENT, and nursing care #Acute CVA #Left Hemiparesis -s/p TNK 10/19/2024 -Aspirin 81 mg daily -Plavix 75 mg daily -Atorvastatin 40 mg nightly -continue therapies -Follow up with Neurology stroke clinic after DC #HFpEF #CAD s/p CABG in 2019 #Hypertension -Entresto 97-103 mg 1 tab BID --> decreased to 24-26mg 1 tab BID with holding parameters on 10/26 due to hypotension -Carvedilol 25 mg BID w/ meals --> decreased to 12.5mg BID w/meals on 10/26 due to hypotension --> discontinued on 10/27 due to hypotension #Hyperlipidemia -Atorvastatin 40 mg nightly #Prediabetes -A1C 6.1 on 10/26 -Diabetic diet -Sliding scale w/POCs #Chronic Pain #Pain management -Duloxetine 60mg daily -Gabapentin 800 mg Q8H --> decreased to 600mg Q8H on 10/26 due to creatinine clearance --> decreased to 400mg Q8H on 10/28 due to hypotension -Acetaminophen 1000mg Q8H PRN pain #Right shoulder pain -Xray right shoulder 10/26 negative -s/p right shoulder intra-articular steroid injection on 10/28 -Lidocaine patch daily -heat/ice PRN -Oxycodone 2.5mg Q4H PRN #Anxiety -Trazodone 150 mg nightly #GERD -Pantoprazole 40mg daily #Anemia -Ferrous sulfate 325mg daily #Bowel management -Colace 100mg BID -Senna 2 tabs QHS DVTP: Aspirin 81 mg po daily and Plavix 75 mg po daily w/ compression device * Katt Garg RN - 11/03/2024 3:38 AM EST Problem: Cognitive: Georges Garfield Fall Risk Goal: Last Known Fall Outcome: Progressing Goal: Mobility requiring assistance of person or device Outcome: Progressing Goal: Dizziness Outcome: Progressing Goal: Medications Outcome: Progressing Goal: Mental Status/LOC/Awareness Outcome: Progressing Goal: Toileting Needs Outcome: Progressing Goal: Volume and Electrolyte Status Outcome: Progressing Goal: Communication/Sensory Outcome: Progressing Goal: Behavior Outcome: Progressing Goals: Identify possible barriers to meeting goals/advancing plan of care: Pt progressing toward rehab goals Stability of the patient: Moderately Unstable - Medium risk of patient condition declining or worsening End of Shift Summary: Bed alarm on. Bed locked/low. Call bryson within reach. * Carol Martínez RN - 11/02/2024 3:12 PM EST 14:45 PT REPORTED SHE HAS FELT THE URGE TO URINATE TODAY SEVERAL TIMES HOWEVER WHEN SHE WENT TO [facility] VERY LITTLE URINE CAME OUT. BLADDER SCAN PERFORMED WITH PT RECLINING IN BED SUPINE, ZERO URINE ON SCAN. REPORTED TO MEDICAL PROVIDER UMA FERRO,[place] , NURSE INSTRUCTED TO PUSH ORAL HYDRATION, INSTRUCTED PT ON NEED TO ORALLY HYDRATE, PT PROVIDED WITH JANAE AMADO AND 2 POPSICLES. * UMA Saez - 11/02/2024 2:11 PM EST Images from the original note were not included. JUAN CARLOS PROGRESS NOTE Date: 11/02/2024 Author: UMA Saez Patient ID: Estephania Bill is a 63 y.o. female : 1960 MR#: [id number] SUBJECTIVE Subjective She reports her strength is improving. She feels well blood pressure does have a tendency to run soft at times otherwise asymptomatic. She does need to drink more fluids. She is moving her bowels sheis voiding. Appetite is fair. She is sleeping through the night. ROS Constitutional :no fever chills , appetite fair, sleeping well HEENT: denies headaches Respiratory: denies shortness of breath, coughing or wheezing Cardiac: denies chest pain, palpitations, : No abd pain, no N/V. Genitourinary: denies any dysuria frequency urgency Musculoskeletal: No joint pain ,back pain Allergies Patient has no known allergies. Current Medications: aspirin, 81 mg, oral, Daily atorvastatin, 40 mg, oral, Nightly budesonide, 0.5 mg, nebulization, Daily And formoterol, 20 mcg, nebulization, BID clopidogreL, 75 mg, oral, Daily docusate sodium, 100 mg, oral, BID DULoxetine, 60 mg, oral, Daily ferrous sulfate, 325 mg, oral, Daily gabapentin, 400 mg, oral, q8h SUNIL insulin lispro, 2-12 Units, subcutaneous, TID AC lidocaine, 1 patch, Topical, Daily pantoprazole, 40 mg, oral, q AM AC sacubitriL-valsartan, 1 tablet, oral, BID senna, 2 tablet, oral, Nightly sodium chloride, 3 mL, intravenous, q8h SUNIL traZODone, 150 mg, oral, Nightly PRN medications: acetaminophen, albuterol, dextrose 50%, dextrose 50%, dextrose, dextrose, glucagoninjection, magnesium hydroxide, oxyCODONE OBJECTIVE Vitals: 11/01/24 2231 11/02/24 0321 11/02/24 0853 11/02/24 0945 BP: (!) 147/79 120/79 95/67 111/57 BP Location: Right arm Right arm Patient Position: Lying Lying Pulse: 88 Resp: 16 Temp: 36.6 ??C (97.9 ??F) 36.3 ??C (97.4 ??F) TempSrc: Oral SpO2: 100% 100% Weight: PHYSICAL EXAM General: conscious alert no acute [...] psych: mood stable appearing, good eye contact. LABS HEMATOLOGY Lab Results Component Value Date WBC 4.9 10/29/2024 HGB 10.8 (L) 10/29/2024 HCT 35.7 10/29/2024 MCV 78.1 (L) 10/29/2024 PLT 227 10/29/2024 CHEMISTRY Lab Results Component Value Date GLUCOSE 114 (H) 11/02/2024 NA 137 10/29/2024 K 4.6 10/29/2024 CO2 [...] changes. Impression: No shoulder fracture or dislocation. [id number] -------- FINAL REPORT -------- Dictated By: Dell Abraham Dictated Date: 10/26/2024 14:24 ET Assigned Physician: Dell Abraham Reviewed and Electronically Signed By: Dell Abraham Signed Date: 10/26/2024 14:25 ET Workstation ID: [id number] Transcribed By: Self Edit Transcribed Date: 10/26/2024 14:24 ET ASSESSMENT & PLAN This is a 63-year-old female with a history of coronary artery disease status post CABG, CVA with residual left-sided hemiparesis, PAD/PVD who presented to [facility] with chest pain radiating down left arm. [...] with her stroke clinic after discharge at [facility] Per rehab team Chronic residual left-sided weakness [...] nightly DVT prophylaxis defer to Dr. Man DAILY CARE CHECKLIST * Lore Cortes, PT - 11/02/2024 2:00 PM EST [facility] Physical Therapy Treatment Note 11/02/2024 Patient: Estephania Bill : 1960 Age: 63 y.o. Gender: female Primary Language: Polish Diagnosis: CVA No past medical history on file. No past surgical history on file. Allergies: has No Known Allergies. Precautions: Medical Precautions: Fall Risk Safety Interventions: Call bryson within reach RUE Weight Bearing Status: Full LUE Weight Bearing Status: Full RLE Weight Bearing Status: Full LLE Weight Bearing Status: Full NURSING RECOMMENDATIONS Bed Mobility: steadying assist bed mobility Transfers: min assist stand pivot transfers with cane Ambulation: Catrachita ambulation with cane SUBJECTIVE Pt report: My leg is sore today Pain: Pain Assessment: 0-10 Pain Score: 5 - Moderate pain Pain Location: Hip Pain Orientation: Right OBJECTIVE General Observation: Pt supine in bed upon arrival to session, agreeable to PT session. Vitals: BP: 108/79 Heart Rate: 94 SpO2: 99 % Procedure/Treatment: Neuromuscular Reeducation: Balance/Neuromuscular Re-Education Neuromuscular Re-Education Time Entry: 45 Pt supine in bed upon arrival to session, agreeable to PT session. Requesting to use bathroom. Supervision ambulation from edge of bed into bathroom x10ft with no AD. Supervision standing from toilet, ambulating to sink and washing hands with no UE support, and ambulating back to edge of bed, supervision. Stating increased soreness in R hip and quad. Dependent wheelchair mobility down to therapy gym. Completion 4x20ft ambulation alternating forward and backwards walking with no AD, supervision.Decreased pace with backwards ambulation, slow pace. Completion 4x15ft lateral walking to L and R side, very small steps, supervision throughout. Completion balance exercise on blue foam airex pad. 3x30 seconds standing with narrow base of support, unsteadiness at ankles, close supervision. Completion 2x10 standing alternating marches on airex, steadying support needed. Completion 2x30 seconds bilateral tandem stance, challenging for patient to achieve position, needing UE support to achieve tandem stance. Completion [id number] ambulation with supervision naming objects that begin with specific letters. Slow speed, intermittent pausing, difficult for patient to dual task. Pt requesting to use bathroom again. Ambulation [id number] from therapy gym back to room with no AD, supervision. Supervision ambulation into and out of bathroom. Completion therapeutic exercise. Bed alarm on, call bryson given, all needs met. Therapeutic Exercise: Therapeutic Exercise Time Entry: 30 3x30 second R sided hip flexor and quad stretch in supine 3x10 bilateral supine SLR 3x10 bilateral sidelying SLR 3x10 glute bridge Education: Education Documentation Precautions, taught by Lore Cortes, PT at 11/02/2024 3:14 PM. Learner: Patient Readiness: Acceptance Method: Explanation, Demonstration Response: Verbalizes Understanding, Demonstrated Understanding Body Mechanics, taught by Lore Cortes PT at 11/02/2024 3:14 PM. Learner: Patient Readiness: Acceptance Method: Explanation, Demonstration Response: Verbalizes Understanding, Demonstrated Understanding Mobility Training, taught by Lore Cortes, PT at 11/02/2024 3:14 PM. Learner: Patient Readiness: Acceptance Method: Explanation, Demonstration Response: Verbalizes Understanding, Demonstrated Understanding Warning Signs and Symptoms of Stroke, taught by Lore Cortes, PT at 11/02/2024 3:14 PM. Learner: Patient Readiness: Acceptance Method: Explanation, Demonstration Response: Verbalizes Understanding, Demonstrated Understanding Discharge Planning, taught by Lore Cortes PT at 11/02/2024 3:14 PM. Learner: Patient Readiness: Acceptance Method: Explanation, Demonstration Response: Verbalizes Understanding, Demonstrated Understanding Fall Precautions, taught by Lore Cortes PT at 11/02/2024 3:14 PM. Learner: Patient Readiness: Acceptance Method: Explanation, Demonstration Response: Verbalizes Understanding, Demonstrated Understanding Education Comments No comments found. ASSESSMENT PT Assessment PT Assessment Results: Decreased strength, Decreased endurance, Impaired balance, Impaired gait, Decreased mobility, Decreased coordination Prognosis: Good Evaluation/Treatment Tolerance: Patient limited by fatigue Comments: Pt wih fair tolerance to treatment session. limited by fatigue and R hip discomfort. Continued difficulty with dual task exercises with decreased gait speed and postural sway. Will continueto benefit from skilled physical therapy. Equipment: TBD Plan of Care Plan Treatment/Interventions: Functional transfer training, LE strengthening/ROM, Endurance training, Bed mobility, Equipment eval/education, Patient/family training, Gait training, Continued evaluation, Balance training PT Plan: Skilled PT PT Frequency: 5-7 days per week PT Duration of Sessions: 60-90 min per session PT Discharge Recommendations: (TBD) Equipment Recommended: TBD Problems/Goals Goals: Encounter Problems Encounter Problems (Active) Template: Physical Therapy Problem: PT Residential Goals Dates: Start: 10/26/24 Goal: Thom bed mobility Dates: Start: 10/26/24 Expected End: 11/09/24 Goal: Thom transfers LRAD Dates: Start: 10/26/24 Expected End: 11/09/24 Goal: Thom ambulation x150ft LRAD Dates: Start: 10/26/24 Expected End: 11/09/24 Goal: Thom threshold step with RW Dates: Start: 10/26/24 Expected End: 11/09/24 Goal: Thom wheelchair mobility Dates: Start: 10/26/24 Expected End: 11/09/24 Problem: PT Short Term Goals Dates: Start: 10/26/24 Goal: supervision bed mobility Dates: Start: 10/26/24 Expected End: 11/02/24 Goal: steadying assist transfers LRAD Dates: Start: 10/26/24 Expected End: 11/02/24 Goal: steadying assist ambulation x50ft LRAD Dates: Start: 10/26/24 Expected End: 11/02/24 Goal: threshold step with RW partial A Dates: Start: 10/26/24 Expected End: 11/02/24 Encounter Problems (Resolved) There are no resolved problems. Session Start/Stop Time: 1400 1515 Therapy Minutes Physical Therapy PT Individual: 75 * Juliann Man, DO - 11/02/2024 12:01 PM EST Images from the original note were not included. [facility] Daily Progress Note Patient name: Estephania Bill : 1960 SUBJECTIVE: Patient seen and examined at bedside today. No acute events overnight. Denies headaches, dizziness,shortness of breath, chest pain, nausea, constipation. Reports that right shoulder pain continues to improve. Participating in therapies: Completion [id number] ambulation with supervision. OBJECTIVE: Vitals: 11/01/24 2231 11/02/24 0321 11/02/24 0853 11/02/24 0945 BP: (!) 147/79 120/79 95/67 111/57 BP Location: Right arm Right arm Patient Position: Lying Lying Pulse: 88 Resp: 16 Temp: 36.6 ??C (97.9 ??F) 36.3 ??C (97.4 ??F) TempSrc: Oral SpO2: 100% 100% Weight: Physical Examination: General: Alert, in no acute cardiopulmonary distress. Mental Status: Oriented to person, place and time. Normal affect. Head: Normocephalic. Eyes: Extraocular muscles grossly intact. Ear, Nose and Throat: Oropharynx clear, mucous membranes moist. Ears and nose without masses, lesions or deformities. Neck: Supple, Trachea midline. Respiratory: Clear to auscultation and percussion. No wheezing, rales or rhonchi. Cardiovascular: Heart sounds normal. No thrills. Regular rate and rhythm, no murmurs, rubs or gallops. Gastrointestinal: Abdomen soft, non-tender, non-distended. Normal bowel sounds. Neurologic: Cranial nerves II-XII grossly intact. Deep tendon reflexes +2 bilaterally. Negative Hoffmans sign bilaterally. Flexor plantar response bilaterally. Negative clonus bilaterally. Moves all extremities spontaneously. Skin: No rashes or lesions. No petechiae or purpura. No edema. Musculoskeletal: No cyanosis or clubbing. No gross deformities. Right shoulder AROM without pain today. No erythema, warmth, or edema of the right shoulder appreciated. Strength 5/5 throughout right upper and lower extremities. Strength 4+/5 throughout left upper and lower extremities. CURRENT INPATIENT MEDICATIONS: Current Facility-Administered Medications: acetaminophen (TYLENOL) tablet 1,000 mg, 1,000 mg, oral, q8h PRN, UMA Orona, 1,000 mg at 10/30/242035 albuterol 2.5 mg /3 mL (0.083 %) nebulizer solution 2.5 mg, 2.5 mg, nebulization, q6h PRN, UMA Maria aspirin chewable tablet 81 mg, 81 mg, oral, Daily, UMA Orona, 81 mg at 11/02/24 0846 atorvastatin (LIPITOR) tablet 40 mg, 40 mg, oral, Nightly, UMA Orona, 40 mg at 11/01/24 2220 budesonide (PULMICORT) 1 mg/2 mL nebulizer solution 0.5 mg, 0.5 mg, nebulization, Daily, 0.5 mg at 11/02/24 0847 AND formoterol (PERFOROMIST) 20 mcg/2 mL nebulizer solution 20 mcg, 20 mcg, nebulization, BID, UMA Orona, 20 mcg at 11/02/24 0847 clopidogreL (PLAVIX) tablet 75 mg, 75 mg, oral, Daily, UMA Orona, 75 mg at 11/02/24 0846 dextrose (D50W) 50% injection 12.5 g, 12.5 g, intravenous, q15 min PRN, UMA Orona dextrose (D50W) 50% injection 25 g, 25 g, intravenous, q15 min PRN, UMA Orona dextrose 15 gram/60 mL oral solution 15 g, 15 g, oral, q15 min PRN, UMA Orona dextrose 15 gram/60 mL oral solution 30 g, 30 g, oral, q15 min PRN, UMA Orona docusate sodium (COLACE) capsule 100 mg, 100 mg, oral, BID, UMA Orona, 100 mg at 845 DULoxetine (CYMBALTA) DR capsule 60 mg, 60 mg, oral, Daily, UMA Orona, 60 mg at 11/02/24 0846 ferrous sulfate tablet 325 mg, 325 mg, oral, Daily, UMA Orona, 325 mg at 11/02/24 0846 gabapentin (NEURONTIN) capsule 400 mg, 400 mg, oral, q8h SUNIL, Juliann Man DO, 400 mg at 11/02/24 0544 Glucagon HCl (rDNA) injection 1 mg, 1 mg, intramuscular, Once PRN, UMA Orona insulin lispro injection 2-12 Units, 2-12 Units, subcutaneous, TID AC, UMA Orona, 2 Unitsat 10/30/24 1709 lidocaine 4 % patch 1 patch, 1 patch, Topical, Daily, Juliann Man DO, 1 patch at 11/02/24 0848 magnesium hydroxide (MILK OF MAGNESIA) 400 mg/5 mL suspension 30 mL, 30 mL, oral, Nightly PRN, UMA Orona, 30 mL at 10/28/24 2115 oxyCODONE (ROXICODONE) immediate release tablet 2.5 mg, 2.5 mg, oral, q4h PRN, Juliann Man DO, 2.5 mg at 11/02/24 0543 pantoprazole (PROTONIX) EC tablet 40 mg, 40 mg, oral, q AM AC, UMA Orona, 40 mg at 11/02/24 0545 sacubitriL-valsartan (ENTRESTO) 24-26 mg per tablet 1 tablet, 1 tablet, oral, BID, UMA Saez, 1 tablet at 11/01/24 2231 senna (SENOKOT) tablet 17.2 mg, 2 tablet, oral, Nightly, Ariadna Barone NP, 17.2 mg at 11/01/24 2221 sodium chloride 0.9 % flush 3 mL, 3 mL, intravenous, q8h SUNIL, Juliann Man, DO, 3 mL at 11/02/24 0648 traZODone (DESYREL) tablet 150 mg, 150 mg, oral, Nightly, UMA Orona, 150 mg at 11/01/24 2220 LABS: Lab Results Component Value Date WBC 4.9 10/29/2024 RBC 4.60 10/29/2024 HGB 10.8 (L) 10/29/2024 HCT 35.7 10/29/2024 MCV 78.1 (L) 10/29/2024 MCHC 30.3 (L) 10/29/2024 RDW 16.0 (H) 10/29/2024 PLT 227 10/29/2024 MPV 11.0 10/29/2024 NRBC 0.0 10/29/2024 DIFF Lab Results Component Value Date LYMPHOPCT 49.4 10/26/2024 NEUTROABS 1.69 10/26/2024 LYMPHSABS 2.66 10/26/2024 MONOABS 0.58 10/26/2024 EOSABS 0.42 10/26/2024 BASOSABS 0.02 10/26/2024 IMMGRANABS 0.01 10/26/2024 RETIC No results found for: RETIC , RETICCTPCT Lab Results Component Value Date NA 137 10/29/2024 K 4.6 10/29/2024 CL 107 10/29/2024 CO2 27 10/29/2024 GLUCOSE 114 (H) 11/02/2024 BUN 17 10/29/2024 CREATININE 0.75 10/29/2024 CALCIUM 8.8 10/29/2024 PROT 6.9 10/29/2024 ALBUMIN 3.4 10/29/2024 BILITOT 0.3 10/29/2024 AST 13 10/29/2024 ALT 14 10/29/2024 ALKPHOS 70 10/29/2024 EGFR 90 10/29/2024 IMPRESSION & PLAN: #Impaired mobility and self-care -Secondary to acute CVA -Continue PT, OT, APARTMENT LEASING AGENT, and nursing care #Acute CVA #Left Hemiparesis -s/p TNK 10/19/2024 -Aspirin 81 mg daily -Plavix 75 mg daily -Atorvastatin 40 mg nightly -continue therapies -Follow up with Neurology stroke clinic after DC #HFpEF #CAD s/p CABG in 2019 #Hypertension -Entresto 97-103 mg 1 tab BID --> decreased to 24-26mg 1 tab BID with holding parameters on 10/26 due to hypotension -Carvedilol 25 mg BID w/ meals --> decreased to 12.5mg BID w/meals on 10/26 due to hypotension --> discontinued on 10/27 due to hypotension #Hyperlipidemia -Atorvastatin 40 mg nightly #Prediabetes -A1C 6.1 on 10/26 -Diabetic diet -Sliding scale w/POCs #Chronic Pain #Pain management -Duloxetine 60mg daily -Gabapentin 800 mg Q8H --> decreased to 600mg Q8H on 10/26 due to creatinine clearance --> decreased to 400mg Q8H on 10/28 due to hypotension -Acetaminophen 1000mg Q8H PRN pain #Right shoulder pain -Xray right shoulder 10/26 negative -s/p right shoulder intra-articular steroid injection on 10/28 -Lidocaine patch daily -heat/ice PRN -Oxycodone 2.5mg Q4H PRN #Anxiety -Trazodone 150 mg nightly #GERD -Pantoprazole 40mg daily #Anemia -Ferrous sulfate 325mg daily #Bowel management -Colace 100mg BID -Senna 2 tabs QHS DVTP: Aspirin 81 mg po daily and Plavix 75 mg po daily w/ compression device * Kacie Kirsten, RD - 11/02/2024 11:53 AM EST 11/02/2024 @ 11:53 AM EST Nutrition Initial Assessment Reason for RD Intervention: Assessment Type: Nutrition Trigger Reason for Assessment: LOS Anthropometrics: Weight: 50.8 kg (112 lb) Weight Method: Actual BMI (Calculated): 19.8 BMI Class: Normal IBW (lbs): 115 Current Diet and Supplements: Dietary Orders (From admission, onward) Start Ordered 10/25/24 1544 Adult diet [facility]; Diabetic; 75 gm carb/Meal Diet effective now Question Answer Comment Location [facility] Diet Type (req) Diabetic Diabetic 75 gm carb/Meal 10/25/24 1552 History of presenting illness: Patient is a 63 y.o. female with a history of No past medical history on file. No past surgical history on file. admitted 10/25/2024 with No Principal Problem: There is no principal problem currently on the Problem List. Please update the Problem List and refresh.. Food/Nutrition History: Previous Diet / Nutrition Education / Counseling: Pt stating she was consuming 2 meals per day prior to admission. Reports recent decrease in appetite and PO intake for ~ 2 weeks prior to admit. Denies closely following therapeutic diet, but does not add salt to foods or when cooking. No noted foodallergies or issues with chewing/swallowing. Appetite NEGATIVE TURNER APPRENTICE: Fair Intake NEGATIVE TURNER APPRENTICE: Decreased Weight History: Wt Readings from Last 10 Encounters: 10/29/24 50.8 kg (112 lb) Pt weighed 107 lb on admission. Feels she may have lost ~10-15 lb in past month prior to admission.No recent weights in EMR to confirm. Subjective Assessment: Pt seen for length of stay assessment. Admitted after CVA. History of hypertension and hyperlipidemia noted. PO intake since admission has been variable per pensions retirement plan specialist, however pt reports appetite is improving. Consuming average of 65% of meals in past week per pensions retirement plan specialist. She states she has been selecting meals with crop nutrition scientist. Agreeable to trial glucerna supplement while appetite gradually improving. POCs well controlled over past several days. Recent weight 112 lb. Last BM 10/29. Nutrition-Related Lab Values: Results from last 7 days Lab Units 11/02/24 1123 10/29/24 0726 10/29/24 0603 SODIUM mmol/L -- -- 137 POTASSIUM mmol/L -- -- 4.6 CHLORIDE mmol/L -- -- 107 CO2 mmol/L -- -- 27 BUN mg/dL -- -- 17 CREATININE mg/dL -- -- 0.75 EGFR mL/min/1.73m2 -- -- 90 CALCIUM mg/dL -- -- 8.8 BILIRUBIN TOTAL mg/dL -- -- 0.3 ALK PHOS unit/L -- -- 70 ALT unit/L -- -- 14 AST unit/L -- -- 13 POCT GLUCOSE mg/dL 114* < > -- GLUCOSE mg/dL -- -- 109* WBC AUTO K/mcL -- -- 4.9 < > = values in this interval not displayed. No results found for: LIPASE Medications: aspirin, 81 mg, oral, Daily atorvastatin, 40 mg, oral, Nightly budesonide, 0.5 mg, nebulization, Daily And formoterol, 20 mcg, nebulization, BID clopidogreL, 75 mg, oral, Daily docusate sodium, 100 mg, oral, BID DULoxetine, 60 mg, oral, Daily ferrous sulfate, 325 mg, oral, Daily gabapentin, 400 mg, oral, q8h SUNIL insulin lispro, 2-12 Units, subcutaneous, TID AC lidocaine, 1 patch, Topical, Daily pantoprazole, 40 mg, oral, q AM AC sacubitriL-valsartan, 1 tablet, oral, BID senna, 2 tablet, oral, Nightly sodium chloride, 3 mL, intravenous, q8h SUNIL traZODone, 150 mg, oral, Nightly CONTINUOUS: PRN medications: acetaminophen, albuterol, dextrose 50%, dextrose 50%, dextrose, dextrose, glucagoninjection, magnesium hydroxide, oxyCODONE Food/Nutrition-Current Status: Intake Type: P.O. Appetite: Fair Intake Amount (%): 50-75% Intake Assessment: Variable Nutrition Focused Physical Findings: Overall Appearance: No visual findings of muscle or fat depletion Digestive System (Mouth to Rectum): Appetite change Nerves and Cognition: Alert, Oriented Skin: Skin intact Nutrition Diagnosis: Code Type: None Identified Status: New Diagnosis: Inadequate Oral Intake Etiology: Changes in taste and appetite or preference Symptoms: pt report of poor appetite/intake for ~ 2 weeks prior to admission Nutrition Interventions: Diet Order, Medical Food Supplement, Vitamin/Mineral Supplement - Requested nutrition consult to make the following changes noted below: - Liberalize diet to 90 gm carb/meal diet given well controlled POCs. Add 2 gm Na restriction givenrecent stroke - Trial glucerna BID chocolate for inadequate intake (adjust as needed on follow up) - If pt consuming <65% of meals on follow up, consider adding multivitamin, thiamine - Pt states she avoids salt at home. Will provide additional instruction as needed regarding low sodium diet on follow up. Goals: Patient will consume greater than or equal to 75% meals., Patient will consume ONS., Monitor/control glucose levels, Maintain weight., Stooling appropriately., and Maintain skin integrity. Coordination of Patient Care: Care plan discussed with patient/family. Monitoring/Evaluation: Fluid/Beverage Intake, Food Intake, Medical Food Supp/Oral Nutrition Supp, Weight, Diet Order Follow Up: Nutrition Priority Level: Moderate Please consult nutrition if needed sooner. RD remains available and will continue to follow. Signature: Kacie Curtis RD * Jarret Bullock OT - 11/02/2024 9:45 AM EST [facility] Occupational Therapy Treatment Note 11/02/24 Patient: Estephania Bill : 1960 Age: 63 y.o. Gender: female Diagnosis: No Principal Problem: There is no principal problem currently on the Problem List. Please update the Problem List and refresh. Primary Rehab (Etiologic) Diagnosis: Patient Active Problem List Diagnosis Stroke (CMS/HCC) Diabetes (CMS/HCC) CVA (cerebral vascular accident) (CMS/HCC) Noncompliance HTN (hypertension) TIA (transient ischemic attack) PMH: No past medical history on file. PSH: No past surgical history on file. Allergies: has No Known Allergies. Precautions: Precautions Medical Precautions: Fall Risk Safety Interventions: Call bryson within reach RUE Weight Bearing Status: Full LUE Weight Bearing Status: Full RLE Weight Bearing Status: Full LLE Weight Bearing Status: Full Vitals: BP: 111/57 Pain: pt reporting mild pain in R hip flexors. Subjective: I feel sore from yesterday I think I did too much. Procedures/Interventions: ADLs/IADLs Self Care/Home Management (ADLs) Time Entry: 60 Pt in elevated supine upon arrival, agreeable to participation, requesting sponge bath at sink. Vitals assessed, see above. Elevated supine>Sit EOB mod I. Functional amb to closet to retrieve clothing, no AD, with S. Seated in w/c at sink pt performed bathing with overall S during standing portions. Pt doffed/donned LB clothing with S during stand. Pt donned new socks with mod I. Functional amb from room>ADL kitchen with S, pt tasked with recalling S/S of BE FAST. Pt able torecall 3/6, education provided on remainder. Once in kitchen, pt provided with printed handout of BE FAST for visual reference to take back to room. Pt tasked with completing kitchen dual task /divided attention, of cooking oatmeal and toast simultaneously. Pt retrieved all necessary items from cabi nets, fridge, and drawers with S. Pt made oatmeal on stovetop, and toast, with no more than S for mobility. Pt operating stove controls appropriately/safely. Pt toileting including txfer, with overall S. Therapeutic Activity Therapeutic Activity Time Entry: 30 In gym pt engaged in there act to target dynamic balance, L fine motor coordination, and dual task attention. While in stand on Ariex foam mat, pt tasked with matching lettered clothes pins to circular target with L UE. Pt retrieving clothes pins from outside ODILON on L and across midline at Knee height with L Ues. Steadying A while reaching across midline. In static stand, pt utilizing ankle strategy to correct for LOB and occasional UE support on table to stabilize balance. Pt tasked with copying design with small pegs, with tweezers, to further target L fine motor/precision skills. Pt placed 10 pegs with increased time, pt reporting fatigue in L hand post task completion. Functional amb back to room no AD with S, pt able to recall 4/6 S/S of stroke using BE FAST acronym. End of session pt sit>Supine mod I, bed alarm on and call bryson in reach. OT Assessment OT Assessment OT Assessment Results: Decreased ADL status, Decreased upper extremity strength, Decreased endurance, Decreased fine motor control, Decreased functional mobility, Decreased IADLs (imapired balance.) Prognosis: Good Evaluation/Treatment Tolerance: Patient tolerated treatment well, Patient limited by fatigue, rest breaks throughout. Pt would benefit from continued engagement in tasks that target dual task attention. OT Plan Plan Treatment Interventions: ADL retraining, Functional transfer training, UE strengthening/ROM, Endurance training, Equipment evaluation/education, Neuromuscular reeducation, Fine motor coordination activities OT Plan: Skilled OT OT Frequency : 5-7 days per week OT Duration of Sessions: 60-90 min per session OT Treatments per day: 1 time per day OT - Evaluation Status: Complete Goals: Encounter Problems Encounter Problems (Active) Template: Occupational Therapy Problem: OT Varnishing Unit Tool Setter Goals Dates: Start: 10/26/24 Goal: Mod I LB dressing Dates: Start: 10/26/24 Expected End: 11/09/24 Goal: S bathing in shower, including tub shower txfer. Dates: Start: 10/26/24 Expected End: 11/09/24 Goal: Toileting including txfer with LRAD mod I Dates: Start: 10/26/24 Expected End: 11/09/24 Goal: Pt will perform light meal prep at LRAD with mod I, implementing EC techniques prn Dates: Start: 10/26/24 Expected End: 11/09/24 Goal: pt will perform grooming in stand at sink with mod I Dates: Start: 10/26/24 Expected End: 11/09/24 Goal: Pt will decrease L UE 9 hole peg score by 8 seconds in order to increased INDEPENDENCE with clothing fasteners Dates: Start: 10/26/24 Expected End: 11/09/24 Description: Problem: OT Short Term Goals Dates: Start: 10/26/24 Goal: Pt will perform sponge bathing S level Dates: Start: 10/26/24 Expected End: 11/02/24 Goal: Pt will toilet with S, with LRAD Dates: Start: 10/26/24 Expected End: 11/02/24 Goal: Pt will retrieve clothing from closet RW level with no more than S Dates: Start: 10/26/24 Expected End: 11/02/24 Goal: Pt will perform tub shower txfer with steadying A Dates: Start: 10/26/24 Expected End: 11/02/24 Goal: Pt will recall 5 energy conservation techniques to implement during ADL/IADLs. Dates: Start: 10/26/24 Expected End: 11/02/24 Encounter Problems (Resolved) There are no resolved problems. Education Documentation Warning Signs and Symptoms of Stroke, taught by Jarret Bullock OT at 11/02/2024 11:37 AM. Learner: Patient Readiness: Acceptance Method: Handout, Explanation Response: Verbalizes Understanding, Demonstrated Understanding, Needs Reinforcement ADL Training, taught by Jarret Bullock OT at 11/02/2024 11:37 AM. Learner: Patient Readiness: Acceptance Method: Explanation, Demonstration Response: Verbalizes Understanding, Demonstrated Understanding Body Mechanics, taught by Jarret Bullock OT at 11/02/2024 11:37 AM. Learner: Patient Readiness: Acceptance Method: Explanation, Demonstration Response: Verbalizes Understanding, Demonstrated Understanding Education Comments No comments found. Start/Stop Time OT Time Calculation OT Start Time: 45 OT Stop Time: 1115 OT Time Calculation (min): 90 min Therapy Minutes: Occupational Therapy OT Individual: 90 * BENEDICT Hines - 11/02/2024 9:00 AM EST Speech Language Pathology Speech Language Pathology Treatment Subjective APARTMENT LEASING AGENT Start Time: 0900 APARTMENT LEASING AGENT Stop Time: 45 APARTMENT LEASING AGENT Time Calculation (min): 45 min Subjective: Cooperative and motivated. Objective General Visit Info General Family/Caregiver Present: No Treatment Speech and Language Speech Treatment (Individual) Time Entry: 15 Verbal Expression: Reviewed use of synonyms/antonyms as word finding strategy. Pt tasked with expanding root word: 72% accuracy given min to mod verbal cues. Pt tasked with completing additional expansion of root word for HW. Cognitive Skills Therapeutic Interventions Cognitive Skills Direct Contact Time Entry: 30 Memory: Pt reported she did not complete HW. Tasked with adding x2 mock appointments during session: min fading to occasional A required. Pt demonstrating increased understanding of use of strategy with teachback. Problem Solving: CT julian read a clock level 1: 100% accuracy indp. Level 2: 80% accuracy given mod fading to min A. Solve time problems level 1: 50% accuracy given max A. Attention/Concentration: Analyze a calendar task: 90% accuracy indp. Cognitive Skills Comments: Increased difficulty with time related word problems. Assessment/Plan APARTMENT LEASING AGENT Assessment Evaluation/Treatment Tolerance: Patient tolerated treatment well Plan Treatment/Interventions: Cognitive linguistic functioning APARTMENT LEASING AGENT Plan: Skilled APARTMENT LEASING AGENT APARTMENT LEASING AGENT Frequency: 5-7 days per week APARTMENT LEASING AGENT Duration of Sessions: 30-60 min per session APARTMENT LEASING AGENT Treatments per day: 1 time per day APARTMENT LEASING AGENT Discharge Recommendations: Outpatient APARTMENT LEASING AGENT APARTMENT LEASING AGENT - Next Appointment: 11/02/24 Goals Encounter Problems Encounter Problems (Active) Template: Speech Therapy Problem: APARTMENT LEASING AGENT Varnishing Unit Tool Setter Goals Dates: Start: 10/26/24 Goal: Pt will improve cognitive linguistic skills for d/c setting. Dates: Start: 10/26/24 Expected End: 11/05/24 Problem: APARTMENT LEASING AGENT Short Term Goals Dates: Start: 10/26/24 Goal: Pt will participate in additional cognitive/language/speech assessment. Dates: Start: 10/26/24 Expected End: 11/02/24 Outcomes Date/Time User Outcome 10/31/24 1046 BENEDICT Hines Progressing Goal: Pt will complete a variety of mod-higher level naming tasks at 90% accuracy given min A. Dates: Start: 10/26/24 Expected End: 11/02/24 Outcomes Date/Time User Outcome 11/02/24 0947 BENEDICT Hines Not Progressing Goal: Pt will improve complex attention for visual and/or auditory tasks to 90% accuracy given min A Dates: Start: 10/27/24 Expected End: 11/03/24 Description: Outcomes Date/Time User Outcome 11/02/24 0947 BENEDICT Hines Progressing Goal: Pt will improve immediate and delayed recall of functional information given mod A for encoding and min A for retrieval - 90% accuracy Dates: Start: 10/27/24 Expected End: 11/03/24 Description: Outcomes Date/Time User Outcome 11/01/24 0917 BENEDICT Hines Progressing Goal: Pt will use fluency strategies in a variety of speech scenarios given min A in 4 out of 5 opportunities Dates: Start: 10/27/24 Expected End: 11/03/24 Description: Outcomes Date/Time User Outcome 10/31/24 1046 BENEDICT Hines Progressing Goal: Pt will complete basic/functional word problems related to time/money at 80% accuracy given mod A. Dates: Start: 10/31/24 Expected End: 11/07/24 Description: Outcomes Date/Time User Outcome 11/02/24 0947 BENEDICT Hines Not Progressing Encounter Problems (Resolved) There are no resolved problems. Education Documentation Speech/Language, taught by BENEDICT Hines at 11/02/2024 9:00 AM. Learner: Patient Readiness: Acceptance Method: Explanation, Demonstration Response: Verbalizes Understanding, Needs Reinforcement Comment: Various word finding strategies (use of synonyms/antonyms, description strategy), problem solving strategies Cognition, taught by BENEDICT Hines at 11/02/2024 9:00 AM. Learner: Patient Readiness: Acceptance Method: Explanation, Demonstration Response: Verbalizes Understanding, Needs Reinforcement Comment: Various word finding strategies (use of synonyms/antonyms, description strategy), problem solving strategies Education Comments No comments found. Associated attestation - Edwina Nassar SLP - 11/02/2024 3:52 PM EST I attest that I, Tameka Nassar M.S.,[facility]-APARTMENT LEASING AGENT, was physically involved in the ongoing assessment, decision making, and interventions provided during today's patient care session. I have reviewed all documentation for today's 11/02/24, entered by Speech Therapy Fellow, Lyudmila Landa, and further attest that it is an accurate clinical record of today's encounter, including accurate and appropriatecharges. * Carol Martínez RN - 11/02/2024 8:56 AM EST 08:40 pt requested toileting, pt continent of bowel movement x2. Pt denied nausea or abd.discomfort. * Jarret Bullock OT - 11/01/2024 3:07 PM EST Images from the original note were not included. [facility] [address] [place] [id number] Dept: [phone] Patient: Estephania Bill : 1960 Age: 63 y.o. Gender: female Room Number: [id number] Diagnosis: No Principal Problem: There is no principal problem currently on the Problem List. Please update the Problem List and refresh. ICD-10-CM ICD-9-CM 1. Cerebrovascular accident (CVA), unspecified mechanism (CMS/HCC) I63.9 434.91 Ambulatory referralto Physical Therapy and Athletic Training Ambulatory referral to Speech Therapy No past medical history on file. No past surgical history on file. Allergies: has No Known Allergies. Precautions: Medical Precautions: Fall Risk Safety Interventions: Call bryson within reach RUE Weight Bearing Status: Full LUE Weight Bearing Status: Full RLE Weight Bearing Status: Full LLE Weight Bearing Status: Full Patient presenting to IRF post CVA with deficits in dynamic balance, act tolerance, and endurance. Pt would benefit from a shower chair to allow pt to sit while bathing to assist with energy conservation and reduce fall risk in the shower. Not recommended that pt bathe entirely in stand. Patient to benefit from Shower chair for discharge home. * Jarret Bullock OT - 11/01/2024 12:30 PM EST [facility] Occupational Therapy Treatment Note 11/01/24 Patient: Estephania Bill : 1960 Age: 63 y.o. Gender: female Diagnosis: No Principal Problem: There is no principal problem currently on the Problem List. Please update the Problem List and refresh. Primary Rehab (Etiologic) Diagnosis: Patient Active Problem List Diagnosis Stroke (CMS/HCC) Diabetes (CMS/HCC) CVA (cerebral vascular accident) (CMS/HCC) Noncompliance HTN (hypertension) TIA (transient ischemic attack) PMH: No past medical history on file. PSH: No past surgical history on file. Allergies: has No Known Allergies. Precautions: Precautions Medical Precautions: Fall Risk Safety Interventions: Call bryson within reach RUE Weight Bearing Status: Full LUE Weight Bearing Status: Full RLE Weight Bearing Status: Full LLE Weight Bearing Status: Full Pain: Pt reports some pain in R shoulder Subjective: I have done a lot today Procedures/Interventions: ADLs/IADLs Self Care/Home Management (ADLs) Time Entry: 45 Pt in elevated supine upon arrival, agreeable to planned shower. Elevated supine>Sit mod I. Functional amb to closet no AD S, to retreive clothing to do laundry. Pt gathered all clothing and placed into bag. Pt transported bag from room>ADL kitchen with S. Pt required cues, as she started thewater before putting anything in it. Pt placed all clothing into washing machine with S. Pt completed bathing in tub/shower combo to simulate home. Pt attempting to doff pants in stand, verbal cues for UE support while assuming unilateral stance. Pt opting to sit on shower chair from outside of tub. Pt sat on shower chair S, with controlled decent. Pt doffed LB clothing S. Pt transitioned B LEs over tub threshold while seated, with S. Pt's R UE IV waterproofed prior to shower. Pt bathed entirely seated with use of hand held shower, pt opting to weight shift in order to bathe buttocks. Post shower pt dried seated and donned efren. Pt stepped over tub threshold with S and UE support on grab bar. Pt seated on toilet seat to don dental coordinator socks with ROSEN. Pt picked up underwear from floor SBA. Functional amb back to room S. Once in room pt donned LB clothing with S. Therapeutic Activity Therapeutic Activity Time Entry: 45 Functional amb from room>gym S while engaged in dual task of mental math (addition) of adding 2 cards together x mass reps, pt completing simple addition in head with minimal mistakes, and pt ableto self correct with cues. Pt noted to have slower pace of walking during dual task, cues for maintaining pace. Pt completed puzzle on vertical surface while standing on tilt board, to target dynamic standing balance. Pt Stepped onto board with partial A. Once standing, cues for ODILON. Pt steadying A throughout with intermittent external force applied to board to further challenge reactive balance, pt able to self correct with intermittent UE support on white board. Pt completed whole puzzle with puzzle oriented on side. Pt engaged in activity to target dynamic balance with incorporated head/direction turns. While in stand pt tasked with reaching to mat to retreive beg bad, then turning around to toss to corn hole board, X mass reps. No LOB or dizziness reported. Pt retrieving armenta bags and tossing with L hand due to R shoulder pain. Functional amb to ADL kitchen to place laundry into dryer, with S. Functional amb back to room S, while engaged in dual task of naming fruits. Pt cathi to name up to 8fruits, with max increased time to name 9th fruit once back in room. Pt demo ing ability to txfer to standard toilet with no AD/DME S. Pt sit>Supine in bed mod I. Bed alarm on, call bryson in reach, and all needs. Met. OT Assessment OT Assessment OT Assessment Results: Decreased ADL status, Decreased upper extremity strength, Decreased endurance, Decreased fine motor control, Decreased functional mobility, Decreased IADLs (imapired balance.) Prognosis: Good Evaluation/Treatment Tolerance: Patient demo'ing improved functional amb, endurance, dynamic balance, and act tolerance this date. No more than S during functional amb in hallway with no AD. Pt wouldbenefit from continued engagement in activities that target dual task attention. OT Plan Plan Treatment Interventions: ADL retraining, Functional transfer training, UE strengthening/ROM, Endurance training, Equipment evaluation/education, Neuromuscular reeducation, Fine motor coordination activities OT Plan: Skilled OT OT Frequency : 5-7 days per week OT Duration of Sessions: 60-90 min per session OT Treatments per day: 1 time per day OT - Evaluation Status: Complete Goals: Encounter Problems Encounter Problems (Active) Template: Occupational Therapy Problem: OT Residential Goals Dates: Start: 10/26/24 Goal: Mod I LB dressing Dates: Start: 10/26/24 Expected End: 11/09/24 Goal: S bathing in shower, including tub shower txfer. Dates: Start: 10/26/24 Expected End: 11/09/24 Goal: Toileting including txfer with LRAD mod I Dates: Start: 10/26/24 Expected End: 11/09/24 Goal: Pt will perform light meal prep at LRAD with mod I, implementing EC techniques prn Dates: Start: 10/26/24 Expected End: 11/09/24 Goal: pt will perform grooming in stand at sink with mod I Dates: Start: 10/26/24 Expected End: 11/09/24 Goal: Pt will decrease L UE 9 hole peg score by 8 seconds in order to increased INDEPENDENCE with clothing fasteners Dates: Start: 10/26/24 Expected End: 11/09/24 Description: Problem: OT Short Term Goals Dates: Start: 10/26/24 Goal: Pt will perform sponge bathing S level Dates: Start: 10/26/24 Expected End: 11/02/24 Goal: Pt will toilet with S, with LRAD Dates: Start: 10/26/24 Expected End: 11/02/24 Goal: Pt will retrieve clothing from closet RW level with no more than S Dates: Start: 10/26/24 Expected End: 11/02/24 Goal: Pt will perform tub shower txfer with steadying A Dates: Start: 10/26/24 Expected End: 11/02/24 Goal: Pt will recall 5 energy conservation techniques to implement during ADL/IADLs. Dates: Start: 10/26/24 Expected End: 11/02/24 Encounter Problems (Resolved) There are no resolved problems. Education Documentation Safe Use of DME, taught by Jarret Bullock OT at 11/01/2024 3:06 PM. Learner: Patient Readiness: Acceptance Method: Explanation, Demonstration Response: Demonstrated Understanding, Verbalizes Understanding ADL Training, taught by Jarret Bullock OT at 11/01/2024 3:06 PM. Learner: Patient Readiness: Acceptance Method: Explanation, Demonstration Response: Demonstrated Understanding, Verbalizes Understanding Body Mechanics, taught by Jarret Bullock OT at 11/01/2024 3:06 PM. Learner: Patient Readiness: Acceptance Method: Explanation, Demonstration Response: Demonstrated Understanding, Verbalizes Understanding Education Comments No comments found. Start/Stop Time OT Time Calculation OT Start Time: 1230 OT Stop Time: 1400 OT Time Calculation (min): 90 min Therapy Minutes: Occupational Therapy OT Individual: 90 * UMA [place] - 11/01/2024 11:09 AM EST Images from the original note were not included. [facility] Daily Progress Note Patient name: Estephania Bill : 1960 SUBJECTIVE: Patient seen and examined at bedside today. No acute events overnight. Denies headaches, dizziness,shortness of breath, chest pain, nausea, constipation. Reports right shoulder is sore after PT due to overhead lifting. She can move it without difficultyjust a slight ache. Requesting something for pain. Nurse aware. No signs of NV compromise on exam. No CP, SOB OBJECTIVE: Vitals: 10/31/24 1529 10/31/24 2045 10/31/24 2348 11/01/24 0747 BP: 134/83 (!) 143/84 138/88 135/81 BP Location: Right arm Right arm Patient Position: Lying Lying Pulse: 85 68 78 76 Resp: 16 17 16 Temp: 36.6 ??C (97.9 ??F) 37 ??C (98.6 ??F) 36.8 ??C (98.2 ??F) TempSrc: Oral Oral SpO2: 98% 100% 100% Weight: Physical Examination: General: Alert, in no acute cardiopulmonary distress. Mental Status: Oriented to person, place and time. Normal affect. Head: Normocephalic. Eyes: Extraocular muscles grossly intact. Ear, Nose and Throat: Oropharynx clear, mucous membranes moist. Ears and nose without masses, lesions or deformities. Neck: Supple, Trachea midline. Respiratory: Clear to auscultation and percussion. No wheezing, rales or rhonchi. Cardiovascular: Heart sounds normal. No thrills. Regular rate and rhythm, no murmurs, rubs or gallops. Gastrointestinal: Abdomen soft, non-tender, non-distended. Normal bowel sounds. Neurologic: Cranial nerves II-XII grossly intact. Deep tendon reflexes +2 bilaterally. Negative Hoffmans sign bilaterally. Flexor plantar response bilaterally. Negative clonus bilaterally. Moves all extremities spontaneously. Skin: No rashes or lesions. No petechiae or purpura. No edema. Musculoskeletal: No cyanosis or clubbing. No gross deformities. Right shoulder AROM without pain today. No erythema, warmth, or edema of the right shoulder appreciated. Strength 5/5 throughout right upper and lower extremities. Strength 4+/5 throughout left upper and lower extremities. CURRENT INPATIENT MEDICATIONS: Current Facility-Administered Medications: acetaminophen (TYLENOL) tablet 1,000 mg, 1,000 mg, oral, q8h PRN, UMA [place]ron[place], 1,000 mg at 10/30/242035 albuterol 2.5 mg /3 mL (0.083 %) nebulizer solution 2.5 mg, 2.5 mg, nebulization, q6h PRN, SusanitaMcNabb, PA aspirin chewable tablet 81 mg, 81 mg, oral, Daily, Susanita Nicholas, PA, 81 mg at 11/01/24934 atorvastatin (LIPITOR) tablet 40 mg, 40 mg, oral, Nightly, Susanita Nicholas, PA, 40 mg at 10/31/242035 budesonide (PULMICORT) 1 mg/2 mL nebulizer solution 0.5 mg, 0.5 mg, nebulization, Daily, 0.5 mg at 11/01/24934 AND formoterol (PERFOROMIST) 20 mcg/2 mL nebulizer solution 20 mcg, 20 mcg, nebulization, BID, Susanita Nicholas, PA, 20 mcg at 11/01/24934 clopidogreL (PLAVIX) tablet 75 mg, 75 mg, oral, Daily, Susanita Nicholas, PA, 75 mg at 11/01/24934 dextrose (D50W) 50% injection 12.5 g, 12.5 g, intravenous, q15 min PRN, Susanita Nicholas, PA dextrose (D50W) 50% injection 25 g, 25 g, intravenous, q15 min PRN, Susanita Nicholas, PA dextrose 15 gram/60 mL oral solution 15 g, 15 g, oral, q15 min PRN, Susanita Nicholas, PA dextrose 15 gram/60 mL oral solution 30 g, 30 g, oral, q15 min PRN, Susanita Nicholas, PA docusate sodium (COLACE) capsule 100 mg, 100 mg, oral, BID, Susanita Nicholas, PA, 100 mg at DULoxetine (CYMBALTA) DR capsule 60 mg, 60 mg, oral, Daily, Susanita Nicholas, PA, 60 mg at 11/01/24934 ferrous sulfate tablet 325 mg, 325 mg, oral, Daily, Susanita Nicholas, PA, 325 mg at 11/01/24934 gabapentin (NEURONTIN) capsule 400 mg, 400 mg, oral, q8h [facility], Juliann Man DO, 400 mg at 11/01/24 0526 Glucagon HCl (rDNA) injection 1 mg, 1 mg, intramuscular, Once PRN, UMA [place] insulin lispro injection 2-12 Units, 2-12 Units, subcutaneous, TID AC, UMA [place], 2 Unitsat 10/30/24 1709 lidocaine 4 % patch 1 patch, 1 patch, Topical, Daily, Juliann Man DO, 1 patch at 11/01/24 0935 magnesium hydroxide (MILK OF MAGNESIA) 400 mg/5 mL suspension 30 mL, 30 mL, oral, Nightly PRN, UMA [place], 30 mL at 10/28/242114 oxyCODONE (ROXICODONE) immediate release tablet 2.5 mg, 2.5 mg, oral, q4h PRN, Juliann Man DO, 2.5 mg at 11/01/24 05 pantoprazole (PROTONIX) EC tablet 40 mg, 40 mg, oral, q AM AC, UMA [place], 40 mg at 11/01/24 05 sacubitriL-valsartan (ENTRESTO) 24-26 mg per tablet 1 tablet, 1 tablet, oral, BID, UMA Saez, 1 tablet at 11/01/24 0935 senna (SENOKOT) tablet 17.2 mg, 2 tablet, oral, Nightly, Ariadna Barone, LISHA, 17.2 mg at 10/31/242036 sodium chloride 0.9 % flush 3 mL, 3 mL, intravenous, q8h [facility], Juliann Man DO, 3 mL at 11/01/24 0529 traZODone (DESYREL) tablet 150 mg, 150 mg, oral, Nightly, UMA [place], 150 mg at 10/31/242037 LABS: Lab Results Component Value Date WBC 4.9 10/29/2024 RBC 4.60 10/29/2024 HGB 10.8 (L) 10/29/2024 HCT 35.7 10/29/2024 MCV 78.1 (L) 10/29/2024 MCHC 30.3 (L) 10/29/2024 RDW 16.0 (H) 10/29/2024 PLT 227 10/29/2024 MPV 11.0 10/29/2024 NRBC 0.0 10/29/2024 DIFF Lab Results Component Value Date LYMPHOPCT 49.4 10/26/2024 NEUTROABS 1.69 10/26/2024 LYMPHSABS 2.66 10/26/2024 MONOABS 0.58 10/26/2024 EOSABS 0.42 10/26/2024 BASOSABS 0.02 10/26/2024 IMMGRANABS 0.01 10/26/2024 RETIC No results found for: RETIC , RETICCTPCT Lab Results Component Value Date NA 137 10/29/2024 K 4.6 10/29/2024 CL 107 10/29/2024 CO2 27 10/29/2024 GLUCOSE 100 11/01/2024 BUN 17 10/29/2024 CREATININE 0.75 10/29/2024 CALCIUM 8.8 10/29/2024 PROT 6.9 10/29/2024 ALBUMIN 3.4 10/29/2024 BILITOT 0.3 10/29/2024 AST 13 10/29/2024 ALT 14 10/29/2024 ALKPHOS 70 10/29/2024 EGFR 90 10/29/2024 IMPRESSION & PLAN: #Impaired mobility and self-care -Secondary to acute CVA -Continue PT, OT, APARTMENT LEASING AGENT, and nursing care #Acute CVA #Left Hemiparesis -s/p TNK 10/19/2024 -Aspirin 81 mg daily -Plavix 75 mg daily -Atorvastatin 40 mg nightly -continue therapies -Follow up with Neurology stroke clinic after DC #HFpEF #CAD s/p CABG in 2019 #Hypertension -Entresto 97-103 mg 1 tab BID --> decreased to 24-26mg 1 tab BID with holding parameters on 10/26 due to hypotension -Carvedilol 25 mg BID w/ meals --> decreased to 12.5mg BID w/meals on 10/26 due to hypotension --> discontinued on 10/27 due to hypotension #Hyperlipidemia -Atorvastatin 40 mg nightly #Prediabetes -A1C 6.1 on 10/26 -Diabetic diet -Sliding scale w/POCs #Chronic Pain #Pain management -Duloxetine 60mg daily -Gabapentin 800 mg Q8H --> decreased to 600mg Q8H on 10/26 due to creatinine clearance --> decreased to 400mg Q8H on 10/28 due to hypotension -Acetaminophen 1000mg Q8H PRN pain #Right shoulder pain -Xray right shoulder 10/26 negative -s/p right shoulder intra-articular steroid injection on 10/28 -Lidocaine patch daily -heat/ice PRN -Oxycodone 2.5mg Q4H PRN #Anxiety -Trazodone 150 mg nightly #GERD -Pantoprazole 40mg daily #Anemia -Ferrous sulfate 325mg daily #Bowel management -Colace 100mg BID -Senna 2 tabs QHS DVTP: Aspirin 81 mg po daily and Plavix 75 mg po daily w/ compression device Associated attestation - Juliann Man DO - 11/01/2024 9:17 PM EST Agree with progress note, assessment, and plan as documented by PA today. * Lore Cortes, PT - 11/01/2024 10:00 AM EST [facility] Physical Therapy Treatment Note 11/01/2024 Patient: Estephania Bill : 1960 Age: 63 y.o. Gender: female Primary Language: Polish Diagnosis: CVA No past medical history on file. No past surgical history on file. Allergies: has No Known Allergies. Precautions: Medical Precautions: Fall Risk Safety Interventions: Call bryson within reach RUE Weight Bearing Status: Full LUE Weight Bearing Status: Full RLE Weight Bearing Status: Full LLE Weight Bearing Status: Full NURSING RECOMMENDATIONS Bed Mobility: steadying assist bed mobility Transfers: min assist stand pivot transfers with cane Ambulation: Catrachita ambulation with cane SUBJECTIVE Pt report: I feel much steadier today Pain: No pain OBJECTIVE General Observation: Pt supine in bed upon arrival to session, agreeable to PT session. Procedure/Treatment: Neuromuscular Reeducation: Balance/Neuromuscular Re-Education Neuromuscular Re-Education Time Entry: 90 Pt supine in bed upon arrival to session, agreeable to PT session. Completion supine to sitting with supervision. Completion sit to stand to SBQC and ambulation into bathroom with supervision. Completion stand from toilet to no AD with supervision as well as ambulation to sink for hand hygiene and ambulation back to edge of bed with SBQC with supervision. Completion [id number] ambulation with supervision. First trial with SBQC, next three trials with no AD and supervision. Cues to increase base ofsupport during ambulation and to increase step size. Completion 3x4 stairs with unilateral railing and step over step pattern with supervision. Completion x4 6 inch platform steps ups with supervision for first two with SBQC and steadying assist for second two with no AD. Completion dual task exercises with ambulation 4x50ft with no AD throwing and catching ball with self while naming objects in different categories. Decreased speed of ambulation, decreased step length, and intermittent pausing while thinking. Supervision throughout. Completion 4x10ft to L and R side lateral walking with supervision. Ambulation x150ft back to room, requesting to get back into bed. Supervision for sit to supine. Bed alarm on, call bryson given, all needs met. Education: Education Documentation Precautions, taught by Lore Cortes PT at 11/01/2024 4:15 PM. Learner: Patient Readiness: Acceptance Method: Explanation, Demonstration Response: Verbalizes Understanding, Demonstrated Understanding Body Mechanics, taught by Lore Cortes PT at 11/01/2024 4:15 PM. Learner: Patient Readiness: Acceptance Method: Explanation, Demonstration Response: Verbalizes Understanding, Demonstrated Understanding Mobility Training, taught by Lore Cortes PT at 11/01/2024 4:15 PM. Learner: Patient Readiness: Acceptance Method: Explanation, Demonstration Response: Verbalizes Understanding, Demonstrated Understanding Safe Use of DME, taught by Lore Cortes PT at 11/01/2024 4:15 PM. Learner: Patient Readiness: Acceptance Method: Explanation, Demonstration Response: Verbalizes Understanding, Demonstrated Understanding Discharge Planning, taught by Lore Cortes PT at 11/01/2024 4:15 PM. Learner: Patient Readiness: Acceptance Method: Explanation, Demonstration Response: Verbalizes Understanding, Demonstrated Understanding Fall Precautions, taught by Lore Cortes PT at 11/01/2024 4:15 PM. Learner: Patient Readiness: Acceptance Method: Explanation, Demonstration Response: Verbalizes Understanding, Demonstrated Understanding Education Comments No comments found. ASSESSMENT PT Assessment PT Assessment Results: Decreased strength, Decreased endurance, Impaired balance, Impaired gait, Decreased mobility, Decreased coordination Prognosis: Good Evaluation/Treatment Tolerance: Patient limited by fatigue Comments: Pt with good tolerance to treatment session. increased endurance and functional mobility with decreasing assist. Difficulty with dual task exercises. Will continue to benefit from skilled physical therapy. 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 Goals Dates: Start: 10/26/24 Goal: Thom bed mobility Dates: Start: 10/26/24 Expected End: 11/09/24 Goal: Thom transfers LRAD Dates: Start: 10/26/24 Expected End: 11/09/24 Goal: Thom ambulation x150ft LRAD Dates: Start: 10/26/24 Expected End: 11/09/24 Goal: Thom threshold step with RW Dates: Start: 10/26/24 Expected End: 11/09/24 Goal: Thom wheelchair mobility Dates: Start: 10/26/24 Expected End: 11/09/24 Problem: PT Short Term Goals Dates: Start: 10/26/24 Goal: supervision bed mobility Dates: Start: 10/26/24 Expected End: 11/02/24 Goal: steadying assist transfers LRAD Dates: Start: 10/26/24 Expected End: 11/02/24 Goal: steadying assist ambulation x50ft LRAD Dates: Start: 10/26/24 Expected End: 11/02/24 Goal: threshold step with RW partial A Dates: Start: 10/26/24 Expected End: 11/02/24 Encounter Problems (Resolved) There are no resolved problems. Session Start/Stop Time: 1000 1130 Therapy Minutes Physical Therapy PT Individual: 90 * BENEDICT Hines - 11/01/2024 8:30 AM EST Speech Language Pathology Speech Language Pathology Treatment Subjective APARTMENT LEASING AGENT Start Time: 829 APARTMENT LEASING AGENT Stop Time: 914 APARTMENT LEASING AGENT Time Calculation (min): 45 min Subjective: Cooperative and pleasant. Objective General Visit Info General Family/Caregiver Present: No Treatment Speech and Language Speech Treatment (Individual) Time Entry: 15 Verbal Expression: Pt tasked with generating x3 synonyms given target word: 100% accuracy given overall mod verbal cues. Benefitted from using in a sentence (i.e. 'The kitchen is ___'). Discussed use of synonyms as word finding strategy and provided examples of use in conversation. Ptverbalized understanding. Cognitive Skills Therapeutic Interventions Cognitive Skills Direct Contact Time Entry: 30 Memory: Pt tasked with encoding mock doctor's appointment: set up for repetition/rehearsal strategy: immediate recall: 100% accuracy indp, 30 min delay: 100% accuracy with self correction. Pt tasked with entering mock doc appointment into phone calendar given x1 clinician model, requiredmin A for second trial, Pt demonstrating understanding with teachback. Tasked with entering additional mock appointment for HW. Provided Pt with handout of internal memory strategies. Problem Solving: Time based word problems with visual: 33% accuracy indp, increasing to 100% given mod to max A. Assessment/Plan APARTMENT LEASING AGENT Assessment Evaluation/Treatment Tolerance: Patient tolerated treatment well Plan Treatment/Interventions: Cognitive linguistic functioning APARTMENT LEASING AGENT Plan: Skilled APARTMENT LEASING AGENT APARTMENT LEASING AGENT Frequency: 5-7 days per week APARTMENT LEASING AGENT Duration of Sessions: 30-60 min per session APARTMENT LEASING AGENT Treatments per day: 1 time per day APARTMENT LEASING AGENT - Next Appointment: 11/02/24 Goals Encounter Problems Encounter Problems (Active) Template: Speech Therapy Problem: APARTMENT LEASING AGENT Residential Goals Dates: Start: 10/26/24 Goal: Pt will improve cognitive linguistic skills for d/c setting. Dates: Start: 10/26/24 Expected End: 11/05/24 Problem: APARTMENT LEASING AGENT Short Term Goals Dates: Start: 10/26/24 Goal: Pt will participate in additional cognitive/language/speech assessment. Dates: Start: 10/26/24 Expected End: 11/02/24 Outcomes Date/Time User Outcome 10/31/24 1046 BENEDICT Hines Progressing Goal: Pt will complete a variety of mod-higher level naming tasks at 90% accuracy given min A. Dates: Start: 10/26/24 Expected End: 11/02/24 Outcomes Date/Time User Outcome 11/01/24 0917 BENEDICT Hines Not Progressing Goal: Pt will improve complex attention for visual and/or auditory tasks to 90% accuracy given min A Dates: Start: 10/27/24 Expected End: 11/03/24 Description: Outcomes Date/Time User Outcome 10/30/24 1321 BENEDICT Hines Not Progressing Goal: Pt will improve immediate and delayed recall of functional information given mod A for encoding and min A for retrieval - 90% accuracy Dates: Start: 10/27/24 Expected End: 11/03/24 Description: Outcomes Date/Time User Outcome 11/01/2417 BENEDICT Hines Progressing Goal: Pt will use fluency strategies in a variety of speech scenarios given min A in 4 out of 5 opportunities Dates: Start: 10/27/24 Expected End: 11/03/24 Description: Outcomes Date/Time User Outcome 10/31/24 1046 BENEDICT Hines Progressing Goal: Pt will complete basic/functional word problems related to time/money at 80% accuracy given mod A. Dates: Start: 10/31/24 Expected End: 11/07/24 Description: Outcomes Date/Time User Outcome 11/01/2417 BENEDICT Hines Not Progressing Encounter Problems (Resolved) There are no resolved problems. Education Documentation Speech/Language, taught by BENEDICT Hines at 11/01/2024 8:30 AM. Learner: Patient Readiness: Acceptance Method: Explanation, Demonstration, Handout Response: Verbalizes Understanding, Needs Reinforcement Comment: Use of phone calendar as external memory strategy, repetition/rehearsal strategy, problem solving strategies, use of synonyms as word finding strategy Cognition, taught by BENEDICT Hines at 11/01/2024 8:30 AM. Learner: Patient Readiness: Acceptance Method: Explanation, Demonstration, Handout Response: Verbalizes Understanding, Needs Reinforcement Comment: Use of phone calendar as external memory strategy, repetition/rehearsal strategy, problem solving strategies, use of synonyms as word finding strategy Education Comments No comments found. Associated attestation - Edwina Nassar, BENEDICT - 11/01/2024 12:05 PM EST I attest that I, Tameka Nassar M.S.,[facility]-APARTMENT LEASING AGENT, was physically involved in the ongoing assessment, decision making, and interventions provided during today's patient care session. I have reviewed all documentation for today's 11/01/24, entered by Speech Therapy Fellow, Lyudmila Landa, and further attest that it is an accurate clinical record of today's encounter, including accurate and appropriatecharges. * Jerry Cannon LCSW - 10/31/2024 2:01 PM EST Team Meeting: Met with pt at bedside to review post team recommendations. Discussed 2 week goals to be MOD I. Discussed tentative discharge set for Wednesday 11/08 home. Pt in agreement with plan but hopeful to be home sooner. Discussed following up with OP rehab for PT and APARTMENT LEASING AGENT at [facility] OP rehab. Pt in agreement with plan. Pt is supv-steadying assist with ADLS with poor endurance and impaired balance. Insurance update 11/04. Pt had no questions or concerns at this time. Pt will update family. Will register pt for [employer] transportation. * Juliann Man DO - 10/31/2024 10:14 AM EST Images from the original note were not included. [facility] IN[facility] Daily Progress Note Patient name: Estephania Bill : 1960 SUBJECTIVE: Patient seen and examined at bedside today. No acute events overnight. Denies headaches, dizziness,shortness of breath, chest pain, nausea, constipation. Reports that right shoulder pain has significantly improved since injection on Thursday. BP improved and patient denies lightheadedness today. Participating in therapies: Ambulating 120 feet with rolling walker and contact guard assistance. TEAM CONFERENCE: I was present and participated in team meeting today. I agree with team conferenceplan as documented in alternate note today. Please refer to team conference note for further details. OBJECTIVE: Vitals: 10/30/24 2047 10/31/24 0517 10/31/24 0945 10/31/24 1000 BP: 116/61 (!) 158/86 138/77 120/75 BP Location: Left arm Left arm Patient Position: Lying Lying Pulse: 72 83 81 Resp: 17 18 Temp: 37.1 ??C (98.8 ??F) 36.3 ??C (97.3 ??F) TempSrc: Oral Oral SpO2: 98% 99% Weight: Physical Examination: General: Alert, in no acute cardiopulmonary distress. Mental Status: Oriented to person, place and time. Normal affect. Head: Normocephalic. Eyes: Extraocular muscles grossly intact. Ear, Nose and Throat: Oropharynx clear, mucous membranes moist. Ears and nose without masses, lesions or deformities. Neck: Supple, Trachea midline. Respiratory: Clear to auscultation and percussion. No wheezing, rales or rhonchi. Cardiovascular: Heart sounds normal. No thrills. Regular rate and rhythm, no murmurs, rubs or gallops. Gastrointestinal: Abdomen soft, non-tender, non-distended. Normal bowel sounds. Neurologic: Cranial nerves II-XII grossly intact. Deep tendon reflexes +2 bilaterally. Negative Hoffmans sign bilaterally. Flexor plantar response bilaterally. Negative clonus bilaterally. Moves all extremities spontaneously. Skin: No rashes or lesions. No petechiae or purpura. No edema. Musculoskeletal: No cyanosis or clubbing. No gross deformities. Right shoulder AROM without pain today. No erythema, warmth, or edema of the right shoulder appreciated. Strength 5/5 throughout right upper and lower extremities. Strength 4+/5 throughout left upper and lower extremities. CURRENT INPATIENT MEDICATIONS: Current Facility-Administered Medications: acetaminophen (TYLENOL) tablet 1,000 mg, 1,000 mg, oral, q8h PRN, UMA [place], 1,000 mg at 10/30/242035 albuterol 2.5 mg /3 mL (0.083 %) nebulizer solution 2.5 mg, 2.5 mg, nebulization, q6h PRN, UMA Maria aspirin chewable tablet 81 mg, 81 mg, oral, Daily, UMA [place], 81 mg at 01/13/25 0948 atorvastatin (LIPITOR) tablet 40 mg, 40 mg, oral, Nightly, Susanita Nicholas, PA, 40 mg at 10/30/242034 budesonide (PULMICORT) 1 mg/2 mL nebulizer solution 0.5 mg, 0.5 mg, nebulization, Daily, 0.5 mg at 10/31/24946 AND formoterol (PERFOROMIST) 20 mcg/2 mL nebulizer solution 20 mcg, 20 mcg, nebulization, BID, Susanita Nicholas, PA, 20 mcg at 10/31/24946 clopidogreL (PLAVIX) tablet 75 mg, 75 mg, oral, Daily, Susanita Nicholas, PA, 75 mg at 10/31/24946 dextrose (D50W) 50% injection 12.5 g, 12.5 g, intravenous, q15 min PRN, Susanita Nicholas, PA dextrose (D50W) 50% injection 25 g, 25 g, intravenous, q15 min PRN, Susanita Nicholas, PA dextrose 15 gram/60 mL oral solution 15 g, 15 g, oral, q15 min PRN, Susanita Nicholas, PA dextrose 15 gram/60 mL oral solution 30 g, 30 g, oral, q15 min PRN, Susanita Nicholas, PA docusate sodium (COLACE) capsule 100 mg, 100 mg, oral, BID, Susanita Nicholas, PA, 100 mg at DULoxetine (CYMBALTA) DR capsule 60 mg, 60 mg, oral, Daily, Susanita Nicholas, PA, 60 mg at 10/31/24946 ferrous sulfate tablet 325 mg, 325 mg, oral, Daily, Susanita Nicholas, PA, 325 mg at 10/31/24947 gabapentin (NEURONTIN) capsule 400 mg, 400 mg, oral, q8h SUNIL, Juliann Man DO, 400 mg at 10/31/24 050 Glucagon HCl (rDNA) injection 1 mg, 1 mg, intramuscular, Once PRN, Sustheron SubramanianNabb, PA insulin lispro injection 2-12 Units, 2-12 Units, subcutaneous, TID AC, Suschrista Nicholas, PA, 2 Unitsat 10/30/24 1709 lidocaine 4 % patch 1 patch, 1 patch, Topical, Daily, Juliann Man DO, 1 patch at 10/31/24 0947 magnesium hydroxide (MILK OF MAGNESIA) 400 mg/5 mL suspension 30 mL, 30 mL, oral, Nightly PRN, UMA [place], 30 mL at 10/28/242114 oxyCODONE (ROXICODONE) immediate release tablet 2.5 mg, 2.5 mg, oral, q4h PRN, Juliann Man DO, 2.5 mg at 10/30/242035 pantoprazole (PROTONIX) EC tablet 40 mg, 40 mg, oral, q AM AC, UMA [place], 40 mg at 10/31/24 0508 sacubitriL-valsartan (ENTRESTO) 24-26 mg per tablet 1 tablet, 1 tablet, oral, BID, UMA Saez, 1 tablet at 10/31/24 0947 senna (SENOKOT) tablet 17.2 mg, 2 tablet, oral, Nightly, Ariadna Barone NP, 17.2 mg at 10/30/242034 sodium chloride 0.9 % flush 3 mL, 3 mL, intravenous, q8h SUNIL, Juliann Man DO, 3 mL at 10/31/24 0544 traZODone (DESYREL) tablet 150 mg, 150 mg, oral, Nightly, UMA [place], 150 mg at 10/30/242035 LABS: Lab Results Component Value Date WBC 4.9 10/29/2024 RBC 4.60 10/29/2024 HGB 10.8 (L) 10/29/2024 HCT 35.7 10/29/2024 MCV 78.1 (L) 10/29/2024 MCHC 30.3 (L) 10/29/2024 RDW 16.0 (H) 10/29/2024 PLT 227 10/29/2024 MPV 11.0 10/29/2024 NRBC 0.0 10/29/2024 DIFF Lab Results Component Value Date LYMPHOPCT 49.4 10/26/2024 NEUTROABS 1.69 10/26/2024 LYMPHSABS 2.66 10/26/2024 MONOABS 0.58 10/26/2024 EOSABS 0.42 10/26/2024 BASOSABS 0.02 10/26/2024 IMMGRANABS 0.01 10/26/2024 RETIC No results found for: RETIC , RETICCTPCT Lab Results Component Value Date NA 137 10/29/2024 K 4.6 10/29/2024 CL 107 10/29/2024 CO2 27 10/29/2024 GLUCOSE 104 (H) 10/31/2024 BUN 17 10/29/2024 CREATININE 0.75 10/29/2024 CALCIUM 8.8 10/29/2024 PROT 6.9 10/29/2024 ALBUMIN 3.4 10/29/2024 BILITOT 0.3 10/29/2024 AST 13 10/29/2024 ALT 14 10/29/2024 ALKPHOS 70 10/29/2024 EGFR 90 10/29/2024 IMPRESSION & PLAN: #Impaired mobility and self-care -Secondary to acute CVA -Continue PT, OT, APARTMENT LEASING AGENT, and nursing care #Acute CVA #Left Hemiparesis -s/p TNK 10/19/2024 -Aspirin 81 mg daily -Plavix 75 mg daily -Atorvastatin 40 mg nightly -continue therapies -Follow up with Neurology stroke clinic after DC #HFpEF #CAD s/p CABG in 2019 #Hypertension -Entresto 97-103 mg 1 tab BID --> decreased to 24-26mg 1 tab BID with holding parameters on 10/26 due to hypotension -Carvedilol 25 mg BID w/ meals --> decreased to 12.5mg BID w/meals on 10/26 due to hypotension --> discontinued on 10/27 due to hypotension #Hyperlipidemia -Atorvastatin 40 mg nightly #Prediabetes -A1C 6.1 on 10/26 -Diabetic diet -Sliding scale w/POCs #Chronic Pain #Pain management -Duloxetine 60mg daily -Gabapentin 800 mg Q8H --> decreased to 600mg Q8H on 10/26 due to creatinine clearance --> decreased to 400mg Q8H on 10/28 due to hypotension -Acetaminophen 1000mg Q8H PRN pain #Right shoulder pain -Xray right shoulder 10/26 negative -s/p right shoulder intra-articular steroid injection on 10/28 -Lidocaine patch daily -heat/ice PRN -Oxycodone 2.5mg Q4H PRN #Anxiety -Trazodone 150 mg nightly #GERD -Pantoprazole 40mg daily #Anemia -Ferrous sulfate 325mg daily #Bowel management -Colace 100mg BID -Senna 2 tabs QHS DVTP: Aspirin 81 mg po daily and Plavix 75 mg po daily w/ compression device * Jarret Bullock OT - 10/31/2024 10:00 AM EST [facility] Occupational Therapy Treatment Note 10/31/24 Patient: Estephania Bill : 1960 Age: 63 y.o. Gender: female Diagnosis: No Principal Problem: There is no principal problem currently on the Problem List. Please update the Problem List and refresh. Primary Rehab (Etiologic) Diagnosis: Patient Active Problem List Diagnosis Stroke (CMS/HCC) Diabetes (CMS/HCC) CVA (cerebral vascular accident) (CMS/HCC) Noncompliance HTN (hypertension) TIA (transient ischemic attack) PMH: No past medical history on file. PSH: No past surgical history on file. Allergies: has No Known Allergies. Precautions: Precautions Medical Precautions: Fall Risk Safety Interventions: Call bryson within reach RUE Weight Bearing Status: Full LUE Weight Bearing Status: Full RLE Weight Bearing Status: Full LLE Weight Bearing Status: Full Vitals: BP: 120/75 Heart Rate: 81 Pain: no pain Subjective: my legs feel so heavy from all the walking. Procedures/Interventions: ADLs/IADLs Self Care/Home Management (ADLs) Time Entry: 60 Pt in elevated supine upon arrival agreeable to participation, reporting LE fatigue. Pt agreeable to medication management task. Pt with written med lit made in previous APARTMENT LEASING AGENT session. Pt educated on recommended use of pill box, due to increased number of medications. Pt able to recall purpose of allmedications except 2, education provided on remaining 2. Pt utilized AM/PM pill box during task. Initial cues for use of written table and filling pill box, pt able to carryout remainder of task [id number] accuracy of pill box filling. Pt able to manage all pills and bill boxes with B UEs, 2 drops. Pt utilizing strategy of flipping containers upside down to indicate that she had already placed them into pill box. Pt with one noon medication, dicussed with pt placing this one to the side or getting separate pillbox. Printed Handout provided for AM/PM pill box, pt reporting that her niece got her one already. To clean up medication management task, pt tasked with utilizing L UE to retrieve color specific beads and place them into each container, no drops. SPT from bed>w/c no AD with steadying A. Pt propelled self from room>ADL bathroom with S. Functional amb with [facility] into bathroom steadying A. Pt performed tub txfer holding onto wall as pt reports there are no grab bars, with steadying Awhile stepping over tub. Once in tub pt seated on shower chair. Education provided on shower chair size, as pt reporting that her chair is too big and fits un-level in the tub. In ADL kitchen pt made cup of instant coffee, At [facility] with steadying A. pt retrieved necessary items including cup and coffee. Pt microwaved water and then place instant decaf coffee in, steadying A.Pt able to transfer coffee with UE support on cane. While getting ready to go back to room pt spiltcoffee on L hand, assist to clean floor, skin check performed no redness present. Therapeutic Activity Therapeutic Activity Time Entry: 30 Once back in room in elevated supine, pt engaged in the act to target L hand fine motor coordination. With L hand pt tasked with copying small peg design. Cues x 1 for correcting error. Pt performed act X2. Encouragement for in hand manipulation to orient small pegs. Pt then tasked with placing 10 small pegs into pink grade theraputty, pt then hid pegs in the theraputty and tasked with removing with L UE. End of session pt in elevated supine with bed alarm on and call bryson in reach. OT Assessment OT Assessment OT Assessment Results: Decreased ADL status, Decreased upper extremity strength, Decreased endurance, Decreased fine motor control, Decreased functional mobility, Decreased IADLs (imapired balance.) Prognosis: Good Evaluation/Treatment Tolerance: Patient tolerated treatment well, Patient limited by fatigue rest breaks taken throughout. Pt steadying A throughout, with one small LOB during B UE release in kitchen, no more than steadying A to correct. OT Plan Plan Treatment Interventions: ADL retraining, Functional transfer training, UE strengthening/ROM, Endurance training, Equipment evaluation/education, Neuromuscular reeducation, Fine motor coordination activities OT Plan: Skilled OT OT Frequency : 5-7 days per week OT Duration of Sessions: 60-90 min per session OT Treatments per day: 1 time per day OT - Evaluation Status: Complete Goals: Encounter Problems Encounter Problems (Active) Template: Occupational Therapy Problem: OT Varnishing Unit Tool Setter Goals Dates: Start: 10/26/24 Goal: Mod I LB dressing Dates: Start: 10/26/24 Expected End: 11/09/24 Goal: S bathing in shower, including tub shower txfer. Dates: Start: 10/26/24 Expected End: 11/09/24 Goal: Toileting including txfer with LRAD mod I Dates: Start: 10/26/24 Expected End: 11/09/24 Goal: Pt will perform light meal prep at LRAD with mod I, implementing EC techniques prn Dates: Start: 10/26/24 Expected End: 11/09/24 Goal: pt will perform grooming in stand at sink with mod I Dates: Start: 10/26/24 Expected End: 11/09/24 Goal: Pt will decrease L UE 9 hole peg score by 8 seconds in order to increased INDEPENDENCE with clothing fasteners Dates: Start: 10/26/24 Expected End: 11/09/24 Description: Problem: OT Short Term Goals Dates: Start: 10/26/24 Goal: Pt will perform sponge bathing S level Dates: Start: 10/26/24 Expected End: 11/02/24 Goal: Pt will toilet with S, with LRAD Dates: Start: 10/26/24 Expected End: 11/02/24 Goal: Pt will retrieve clothing from closet RW level with no more than S Dates: Start: 10/26/24 Expected End: 11/02/24 Goal: Pt will perform tub shower txfer with steadying A Dates: Start: 10/26/24 Expected End: 11/02/24 Goal: Pt will recall 5 energy conservation techniques to implement during ADL/IADLs. Dates: Start: 10/26/24 Expected End: 11/02/24 Encounter Problems (Resolved) There are no resolved problems. Education Documentation Safe Use of DME, taught by Jarret Bullock OT at 10/31/2024 11:42 AM. Learner: Patient Readiness: Acceptance Method: Explanation, Demonstration, Handout Response: Verbalizes Understanding, Demonstrated Understanding, Needs Reinforcement How to Obtain Needed DME, taught by Jarret Bullock OT at 10/31/2024 11:42 AM. Learner: Patient Readiness: Acceptance Method: Explanation, Demonstration, Handout Response: Verbalizes Understanding, Demonstrated Understanding, Needs Reinforcement Use of Pill Box, taught by Jarret Bullock OT at 10/31/2024 11:42 AM. Learner: Patient Readiness: Acceptance Method: Explanation, Demonstration, Handout Response: Verbalizes Understanding, Demonstrated Understanding, Needs Reinforcement ADL Training, taught by Jarret Bullock OT at 10/31/2024 11:42 AM. Learner: Patient Readiness: Acceptance Method: Explanation, Demonstration, Handout Response: Verbalizes Understanding, Demonstrated Understanding, Needs Reinforcement Home Exercise Program, taught by Jarret Bullock OT at 10/31/2024 11:42 AM. Learner: Patient Readiness: Acceptance Method: Explanation, Demonstration, Handout Response: Verbalizes Understanding, Demonstrated Understanding, Needs Reinforcement Body Mechanics, taught by Jarret Bullock OT at 10/31/2024 11:42 AM. Learner: Patient Readiness: Acceptance Method: Explanation, Demonstration, Handout Response: Verbalizes Understanding, Demonstrated Understanding, Needs Reinforcement Education Comments No comments found. Start/Stop Time OT Time Calculation OT Start Time: 1000 OT Stop Time: 1130 OT Time Calculation (min): 90 min Therapy Minutes: Occupational Therapy OT Individual: 90 * BENEDICT Hines - 10/31/2024 9:25 AM EST Speech Language Pathology Speech Language Pathology Treatment Subjective APARTMENT LEASING AGENT Start Time: 924 APARTMENT LEASING AGENT Stop Time: 1000 APARTMENT LEASING AGENT Time Calculation (min): 35 min Subjective: Cooperative and pleasant. Objective General Visit Info General Family/Caregiver Present: No Treatment Cognitive Skills Therapeutic Interventions Cognitive Skills Direct Contact Time Entry: 35 Memory: Medication schedule and review during AM med pass with RN: Pt able to indp recall x3 names,x3 purposes and x2 dosages of meds out of 16, increasing accuracy with min to mod verbal cues. Completed medication log with this automobile service writer. Explained rationale for use as external memory strategy. Discussed various external memory strategies. Pt receptive to use of phone calendar, as she reports often forgetting doctor appointments. Plan to target in future sessions. Problem Solving: Informal problem solving probing task: Pt presented with word problems related to money, time, med management auditorily: 20% accuracy indp. Goals updated. Assessment/Plan APARTMENT LEASING AGENT Assessment Evaluation/Treatment Tolerance: Patient tolerated treatment well Plan Treatment/Interventions: Cognitive linguistic functioning APARTMENT LEASING AGENT Plan: Skilled APARTMENT LEASING AGENT APARTMENT LEASING AGENT Frequency: 5-7 days per week APARTMENT LEASING AGENT Duration of Sessions: 30-60 min per session APARTMENT LEASING AGENT Treatments per day: 1 time per day APARTMENT LEASING AGENT - Next Appointment: 11/01/24 Goals Encounter Problems Encounter Problems (Active) Template: Speech Therapy Problem: APARTMENT LEASING AGENT Varnishing Unit Tool Setter Goals Dates: Start: 10/26/24 Goal: Pt will improve cognitive linguistic skills for d/c setting. Dates: Start: 10/26/24 Expected End: 11/05/24 Problem: APARTMENT LEASING AGENT Short Term Goals Dates: Start: 10/26/24 Goal: Pt will participate in additional cognitive/language/speech assessment. Dates: Start: 10/26/24 Expected End: 11/02/24 Outcomes Date/Time User Outcome 10/31/24 BENEDICT Monte Progressing Goal: Pt will complete a variety of mod-higher level naming tasks at 90% accuracy given min A. Dates: Start: 10/26/24 Expected End: 11/02/24 Outcomes Date/Time User Outcome 10/30/24 1321 BENEDICT Hines Progressing Goal: Pt will improve complex attention for visual and/or auditory tasks to 90% accuracy given min A Dates: Start: 10/27/24 Expected End: 11/03/24 Description: Outcomes Date/Time User Outcome 10/30/24 BENEDICT Gan Not Progressing Goal: Pt will improve immediate and delayed recall of functional information given mod A for encoding and min A for retrieval - 90% accuracy Dates: Start: 10/27/24 Expected End: 11/03/24 Description: Outcomes Date/Time User Outcome 10/31/24 1046 BENEDICT Hines Not Progressing Goal: Pt will use fluency strategies in a variety of speech scenarios given min A in 4 out of 5 opportunities Dates: Start: 10/27/24 Expected End: 11/03/24 Description: Outcomes Date/Time User Outcome 10/31/24 1046 BENEDICT Hines Progressing Goal: Pt will complete basic/functional word problems related to time/money at 80% accuracy given mod A. Dates: Start: 10/31/24 Expected End: 11/07/24 Description: Encounter Problems (Resolved) There are no resolved problems. Education Documentation Cognition, taught by BENEDICT Hines at 10/31/2024 09:25 AM. Learner: Patient Readiness: Acceptance Method: Explanation, Handout Response: Verbalizes Understanding, Needs Reinforcement Education Comments No comments found. Associated attestation - Edwina Nassar SLP - 10/31/2024 12:54 PM EST I attest that I, Tameka Nassar M.S.,[facility]-APARTMENT LEASING AGENT, was physically involved in the ongoing assessment, decision making, and interventions provided during today's patient care session. I have reviewed all documentation for today's 10/31/24, entered by Speech Therapy Fellow, Lyudmlia Landa, and further attest that it is an accurate clinical record of today's encounter, including accurate and appropriatecharges. * Lore Cortes, PT - 10/31/2024 8:00 AM EST [facility] Physical Therapy Treatment Note 10/31/2024 Patient: Estephania Bill : 1960 Age: 63 y.o. Gender: female Primary Language: Polish Diagnosis: CVA No past medical history on file. No past surgical history on file. Allergies: has No Known Allergies. Precautions: Medical Precautions: Fall Risk Safety Interventions: Call bryson within reach RUE Weight Bearing Status: Full LUE Weight Bearing Status: Full RLE Weight Bearing Status: Full LLE Weight Bearing Status: Full NURSING RECOMMENDATIONS Bed Mobility: steadying assist bed mobility Transfers: min assist stand pivot transfers with SBQC Ambulation: min A ambulation with SBQC SUBJECTIVE Pt report: I feel better than I did yesterday. Pain: Pain Assessment: No/denies pain OBJECTIVE General Observation: Pt supine in bed upon arrival to session, agreeable to PT session. Vitals: Sitting in wheelchair: BP:146/89 HR:100 Procedure/Treatment: Therapeutic Activities: Therapeutic Activity Time Entry: 15 Pt supine in bed upon arrival to session, agreeable to PT session. Completion supine to sitting edge of bed with supervision. Completion sit to stand with close supervision to RW, ambulation with steadying assist x15ft into bathroom. Steadying assist for sit to toilet, stand from toilet, and ambulation x10ft to sink with RW. Standing no UE support steadying assist for hand hygiene. Ambulation x5ft to edge of bed with RW. Threading new pants, sit to stand no AD steadying assist and finishing donning pants. Donning new shirt in sitting. Defer to neuromuscular re-education section. Neuromuscular Reeducation: Balance/Neuromuscular Re-Education Neuromuscular Re-Education Time Entry: 75 Completion ambulation [id number] from room down to therapy gym with RW, steadying assist. In therapy gym completion [id number] ambulation with SBQC with steadying assist. Ambulating with narrow base of support, cues to increase base of support. Cues for sequencing with cane. Completion [id number] ambulationwith no AD, steadying assist, increased medial lateral sway. X1 loss of balance towards L side during turn, partial A to correct for. Completion x4 6 inch platform steps with use of SBQC, steadying assist. Cues to lead with RLE on ascent and LLE on descent. Completion x4 platform steps with no AD and steadying assist. Decreased pace. Leading with RLE on ascent and LLE on descent. Completion 3x4 stairs with unilateral handrail, steadying assist. Alternating between step to and step over step on ascent and descent. Completion x2 trials ambulating over four 4 inch obstacles, steadying assist, leading with RLE on all steps. Completion 2x10ft ambulation over uneven mat surface, intermittent partial A. Completion FGA - scoring . Dependent wheelchair mobility back to room, requesting to stay in chair. Chair alarm on, call bryson given, all needs met. Education: Education Documentation Precautions, taught by Lore Cortes, PT at 10/31/2024 8:50 AM. Learner: Patient Readiness: Acceptance Method: Explanation, Demonstration Response: Verbalizes Understanding, Demonstrated Understanding Body Mechanics, taught by Lore Cortes PT at 10/31/2024 8:50 AM. Learner: Patient Readiness: Acceptance Method: Explanation, Demonstration Response: Verbalizes Understanding, Demonstrated Understanding Mobility Training, taught by Lore Cortes, PT at 10/31/2024 8:50 AM. Learner: Patient Readiness: Acceptance Method: Explanation, Demonstration Response: Verbalizes Understanding, Demonstrated Understanding Warning Signs and Symptoms of Stroke, taught by Lore Cortes, PT at 10/31/2024 8:50 AM. Learner: Patient Readiness: Acceptance Method: Explanation, Demonstration Response: Verbalizes Understanding, Demonstrated Understanding Discharge Planning, taught by Lore Cortes PT at 10/31/2024 8:50 AM. Learner: Patient Readiness: Acceptance Method: Explanation, Demonstration Response: Verbalizes Understanding, Demonstrated Understanding Fall Precautions, taught by Lore Cortes PT at 10/31/2024 8:50 AM. Learner: Patient Readiness: Acceptance Method: Explanation, Demonstration Response: Verbalizes Understanding, Demonstrated Understanding Education Comments No comments found. ASSESSMENT PT Assessment PT Assessment Results: Decreased strength, Decreased endurance, Impaired balance, Impaired gait, Decreased mobility, Decreased coordination Prognosis: Good Evaluation/Treatment Tolerance: Patient limited by fatigue Comments: Pt with good tolerance to treatment session. Much improved LLE stability with no bucklingthrough session. steadying assist functional mobility with intermittent partial A for LOB. Will continue to benefit from skilled physical therapy. 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 Goals Dates: Start: 10/26/24 Goal: Thom bed mobility Dates: Start: 10/26/24 Expected End: 11/09/24 Goal: Thom transfers LRAD Dates: Start: 10/26/24 Expected End: 11/09/24 Goal: Thom ambulation x150ft LRAD Dates: Start: 10/26/24 Expected End: 11/09/24 Goal: Thom threshold step with RW Dates: Start: 10/26/24 Expected End: 11/09/24 Goal: Thom wheelchair mobility Dates: Start: 10/26/24 Expected End: 11/09/24 Problem: PT Short Term Goals Dates: Start: 10/26/24 Goal: supervision bed mobility Dates: Start: 10/26/24 Expected End: 11/02/24 Goal: steadying assist transfers LRAD Dates: Start: 10/26/24 Expected End: 11/02/24 Goal: steadying assist ambulation x50ft LRAD Dates: Start: 10/26/24 Expected End: 11/02/24 Goal: threshold step with RW partial A Dates: Start: 10/26/24 Expected End: 11/02/24 Encounter Problems (Resolved) There are no resolved problems. Session Start/Stop Time: 0800 0930 Therapy Minutes Physical Therapy PT Individual: 90 * Katt Garg RN - 10/31/2024 6:06 AM EST Problem: Cognitive: Georges Garfield Fall Risk Goal: Last Known Fall Outcome: Progressing Goal: Mobility requiring assistance of person or device Outcome: Progressing Goal: Dizziness Outcome: Progressing Goal: Medications Outcome: Progressing Goal: Mental Status/LOC/Awareness Outcome: Progressing Goal: Toileting Needs Outcome: Progressing Goal: Volume and Electrolyte Status Outcome: Progressing Goal: Communication/Sensory Outcome: Progressing Goal: Behavior Outcome: Progressing Goals: Identify possible barriers to meeting goals/advancing plan of care: Pt continues to work toward rehab goals. Stability of the patient: Moderately Unstable - Medium risk of patient condition declining or worsening End of Shift Summary: Denies pain. Bed alarm on. Bed locked/low. Call bryson within reach. * Jon Chambers PTA - 10/30/2024 2:48 PM EST [facility] Physical Therapy Treatment Note 10/30/2024 Patient: Estephania Bill : 1960 Age: 63 y.o. Gender: female Primary Language: Diagnosis: No Principal Problem: There is no principal problem currently on the Problem List. Please update the Problem List and refresh. No past medical history on file. No past surgical history on file. Allergies: has No Known Allergies. Precautions: Medical Precautions: Fall Risk Safety Interventions: Call bryson within reach RUE Weight Bearing Status: Full LUE Weight Bearing Status: Full RLE Weight Bearing Status: Full LLE Weight Bearing Status: Full NURSING RECOMMENDATIONS Bed Mobility: steadying assist bed mobility Transfers: min assist stand pivot transfers with RW Ambulation: modA ambulation with RW SUBJECTIVE Pt report: I was just about to fall asleep when the speech therapist came in. OBJECTIVE General Observation: Patient in bed when approached, ready to participate. General/Functional Assessments: Procedure/Treatment: Therapeutic Activities: Therapeutic Activity Time Entry: 60 Patient performed bilateral LE therex including ankle pumps, hip/knee flexion/extension, hip abduction - 3 x 10 each. Supine to sit with SBA. Seated LAQs performed at EOB 3 x 10. BP seated at EOB 128/63. Sit to stand and gait with RW and CG - 120' x 3. Sit to supine with SBA. Patient left with phone, call bryson and alarm in place. ASSESSMENT Gait is progressing well with RW. No episodes of L knee buckling demonstrated today. 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 Goals Dates: Start: 10/26/24 Goal: Thom bed mobility Dates: Start: 10/26/24 Expected End: 11/09/24 Goal: Thom transfers LRAD Dates: Start: 10/26/24 Expected End: 11/09/24 Goal: Thom ambulation x150ft LRAD Dates: Start: 10/26/24 Expected End: 11/09/24 Goal: Thom threshold step with RW Dates: Start: 10/26/24 Expected End: 11/09/24 Goal: Thom wheelchair mobility Dates: Start: 10/26/24 Expected End: 11/09/24 Problem: PT Short Term Goals Dates: Start: 10/26/24 Goal: supervision bed mobility Dates: Start: 10/26/24 Expected End: 11/02/24 Goal: steadying assist transfers LRAD Dates: Start: 10/26/24 Expected End: 11/02/24 Goal: steadying assist ambulation x50ft LRAD Dates: Start: 10/26/24 Expected End: 11/02/24 Goal: threshold step with RW partial A Dates: Start: 10/26/24 Expected End: 11/02/24 Encounter Problems (Resolved) There are no resolved problems. Session Start/Stop Time: 1314 1415 Therapy Minutes Physical Therapy PT Individual: 60 * Lyudmila Younger, APARTMENT LEASING AGENT - 10/30/2024 12:30 PM EST Speech Language Pathology Speech Language Pathology Treatment Subjective APARTMENT LEASING AGENT Start Time: 1230 APARTMENT LEASING AGENT Stop Time: 1315 APARTMENT LEASING AGENT Time Calculation (min): 45 min Subjective: Cooperative and pleasant. Objective General Visit Info General Family/Caregiver Present: No Treatment Speech and Language Speech Treatment (Individual) Time Entry: 30 Verbal Expression: Pt tasked with generating members of categories given target letter: 83% accuracy indp, increasing to 100% given min verbal cues. Introduced 'description' as word finding strategy.Pt verbalized understanding. Other Speech Activity: Pt unable to recall fluency techniques from previous session. Reviewed 'easyonset' as fluency strategy and provided Pt with educational handouts for practice/use during conversation. Pt tasked with oral readings targeting phrases with multisyllabic words: 80% accuracy indp, 100% with verbal cues. Cognitive Skills Therapeutic Interventions Cognitive Skills Direct Contact Time Entry: 15 Memory: Pt able to recall 4/6 components of BEFAST inpd. Increasing to 5/6 given min verbal cues. Attention/Concentration: Understand stories you hear CT julian level 2: 72% accuracy indp, increasing to 100% given min to mod verbal cues. Level 3: 56% accuracy given multiple choice cues. Assessment/Plan APARTMENT LEASING AGENT Assessment Evaluation/Treatment Tolerance: Patient tolerated treatment well Plan Treatment/Interventions: Cognitive linguistic functioning APARTMENT LEASING AGENT Plan: Skilled APARTMENT LEASING AGENT APARTMENT LEASING AGENT Frequency: 5-7 days per week APARTMENT LEASING AGENT Duration of Sessions: 30-60 min per session APARTMENT LEASING AGENT Treatments per day: 1 time per day APARTMENT LEASING AGENT - Next Appointment: 10/31/24 Goals Encounter Problems Encounter Problems (Active) Template: Speech Therapy Problem: APARTMENT LEASING AGENT Varnishing Unit Tool Setter Goals Dates: Start: 10/26/24 Goal: Pt will improve cognitive linguistic skills for d/c setting. Dates: Start: 10/26/24 Expected End: 11/05/24 Problem: APARTMENT LEASING AGENT Short Term Goals Dates: Start: 10/26/24 Goal: Pt will participate in additional cognitive/language/speech assessment. Dates: Start: 10/26/24 Expected End: 11/02/24 Goal: Pt will complete a variety of mod-higher level naming tasks at 90% accuracy given min A. Dates: Start: 10/26/24 Expected End: 11/02/24 Outcomes Date/Time User Outcome 10/30/24 1321 BENEDICT Hines Progressing Goal: Pt will improve complex attention for visual and/or auditory tasks to 90% accuracy given min A Dates: Start: 10/27/24 Expected End: 11/03/24 Description: Outcomes Date/Time User Outcome 10/30/24 132BENEDICT Arzola Not Progressing Goal: Pt will improve immediate and delayed recall of functional information given mod A for encoding and min A for retrieval - 90% accuracy Dates: Start: 10/27/24 Expected End: 11/03/24 Description: Outcomes Date/Time User Outcome 10/30/24 132BENEDICT Arzola Progressing Goal: Pt will use fluency strategies in a variety of speech scenarios given min A in 4 out of 5 opportunities Dates: Start: 10/27/24 Expected End: 11/03/24 Description: Outcomes Date/Time User Outcome 10/30/24 132BENEDICT Arzola Not Progressing Encounter Problems (Resolved) There are no resolved problems. Education Documentation Speech/Language, taught by BENEDICT Hines at 10/30/2024 12:30 PM. Learner: Patient Readiness: Acceptance Method: Explanation, Handout, Demonstration Response: Verbalizes Understanding, Needs Reinforcement Comment: Easy onset as fluency strategy, auditory attention strategies, word finding strategies Cognition, taught by BENEDICT Hines at 10/30/2024 12:30 PM. Learner: Patient Readiness: Acceptance Method: Explanation, Handout, Demonstration Response: Verbalizes Understanding, Needs Reinforcement Comment: Easy onset as fluency strategy, auditory attention strategies, word finding strategies Education Comments No comments found. Associated attestation - Edwina Nassar SLP - 10/30/2024 7:25 PM EST I attest that I, Tameka Nassar M.S.,[facility]-APARTMENT LEASING AGENT, was physically involved in the ongoing assessment, decision making, and interventions provided during today's patient care session. I have reviewed all documentation for today's 10/30/24, entered by Speech Therapy Fellow, Lyudmila Landa, and further attest that it is an accurate clinical record of today's encounter, including accurate and appropriatecharges. * LALA Van - 10/30/2024 9:08 AM EST [facility] Occupational Therapy Treatment Note 10/30/24 Patient: Estephania Bill : 1960 Age: 63 y.o. Gender: female Diagnosis: No Principal Problem: There is no principal problem currently on the Problem List. Please update the Problem List and refresh. Primary Rehab (Etiologic) Diagnosis: Patient Active Problem List Diagnosis Stroke (CMS/HCC) Diabetes (CMS/HCC) CVA (cerebral vascular accident) (CMS/HCC) Noncompliance HTN (hypertension) TIA (transient ischemic attack) PMH: No past medical history on file. PSH: No past surgical history on file. Allergies: has No Known Allergies. Precautions: Precautions Medical Precautions: Fall Risk Safety Interventions: Call bryson within reach RUE Weight Bearing Status: Full LUE Weight Bearing Status: Full RLE Weight Bearing Status: Full LLE Weight Bearing Status: Full Vitals: Pain: 5/10 Subjective: I finally went the bathroom, Procedures/Interventions: 60 minutes: self care: Pt ctg with bed to w/c transfer, Pt brought to shower by w/c, tranfers to bench with ctg and grab bar. Pt IV was covered to keep dry. Pt showered with set UB, pt washed LE and ninoska/buttocks in sitting. Pt stood to dry Ninoska/buttocks with no LOB. Pt washed hair with just set up for shampoo/conditioner. Pt transferred back to w/c with using grab bar and supervision, dressing completed in room with set up and supervision to pull pant s to waist. Grooming at sink for brushing teeth and used hair angulo to complete hair . 60 minutes. There exerises : 30 minutes : 1# weigth for L UE shld flex/ext, abd.add, horiz abd/add, chest press, and elbow flex/ext, 3x10 OT Assessment OT Assessment OT Assessment Results: Decreased ADL status, Decreased upper extremity strength, Decreased endurance, Decreased fine motor control, Decreased functional mobility, Decreased IADLs (imapired balance.) Prognosis: Good Evaluation/Treatment Tolerance: Patient tolerated treatment well, Patient limited by fatigue Medical Staff Made Aware: (Aware of pain.) OT Plan Plan Treatment Interventions: ADL retraining, Functional transfer training, UE strengthening/ROM, Endurance training, Equipment evaluation/education, Neuromuscular reeducation, Fine motor coordination activities OT Plan: Skilled OT OT Frequency : 5-7 days per week OT Duration of Sessions: 60-90 min per session OT Treatments per day: 1 time per day OT - Evaluation Status: Complete Goals: Encounter Problems Encounter Problems (Active) Template: Occupational Therapy Problem: OT Residential Goals Dates: Start: 10/26/24 Goal: Mod I LB dressing Dates: Start: 10/26/24 Expected End: 11/09/24 Goal: S bathing in shower, including tub shower txfer. Dates: Start: 10/26/24 Expected End: 11/09/24 Goal: Toileting including txfer with LRAD mod I Dates: Start: 10/26/24 Expected End: 11/09/24 Goal: Pt will perform light meal prep at LRAD with mod I, implementing EC techniques prn Dates: Start: 10/26/24 Expected End: 11/09/24 Goal: pt will perform grooming in stand at sink with mod I Dates: Start: 10/26/24 Expected End: 11/09/24 Goal: Pt will decrease L UE 9 hole peg score by 8 seconds in order to increased INDEPENDENCE with clothing fasteners Dates: Start: 10/26/24 Expected End: 11/09/24 Description: Problem: OT Short Term Goals Dates: Start: 10/26/24 Goal: Pt will perform sponge bathing S level Dates: Start: 10/26/24 Expected End: 11/02/24 Goal: Pt will toilet with S, with LRAD Dates: Start: 10/26/24 Expected End: 11/02/24 Goal: Pt will retrieve clothing from closet RW level with no more than S Dates: Start: 10/26/24 Expected End: 11/02/24 Goal: Pt will perform tub shower txfer with steadying A Dates: Start: 10/26/24 Expected End: 11/02/24 Goal: Pt will recall 5 energy conservation techniques to implement during ADL/IADLs. Dates: Start: 10/26/24 Expected End: 11/02/24 Encounter Problems (Resolved) There are no resolved problems. Education Documentation No documentation found. Education Comments No comments found. Start/Stop Time OT Time Calculation OT Start Time: 45 OT Stop Time: 1015 OT Time Calculation (min): 90 min Therapy Minutes:90 * Charlene Gottlieb, BENEDICT - 10/29/2024 4:04 PM EST Speech Language Pathology Speech Language Pathology Treatment Subjective APARTMENT LEASING AGENT Start Time: 1515 APARTMENT LEASING AGENT Stop Time: 5 APARTMENT LEASING AGENT Time Calculation (min): 40 min Subjective: Pt was alert and sitting upright in bed for the session. Pt was pleasant and cooperative throughout the session. Session was interrupted by tolieting. Objective General Visit Info General Family/Caregiver Present: No Treatment Speech and Language Speech Treatment (Individual) Time Entry: 30 Speech: Pt was introduced to light contact techinque for fluency. Pt was able to read phrases/sentences contain /b/ w/ 70% accuracy indep. and 100% given mod verbal cues for use of strategies. Verbal Expression: Pt was able to generate 6/10 items in an abstract category indep. and 10/10 given mod A for use of strategies and idea generation. Cognitive Skills Therapeutic Interventions Cognitive Skills Direct Contact Time Entry: 10 Attention/Concentration: Pt was able to complete identifying the correct card on CT julian level 3 w/ 80% accuracy indep. and 100% given min A for identifying the errors Assessment/Plan APARTMENT LEASING AGENT Assessment APARTMENT LEASING AGENT Assessment Results: Cognitive impairments Evaluation/Treatment Tolerance: Patient tolerated treatment well Plan Treatment/Interventions: Cognitive linguistic functioning APARTMENT LEASING AGENT Plan: Skilled APARTMENT LEASING AGENT APARTMENT LEASING AGENT Frequency: 5-7 days per week APARTMENT LEASING AGENT Duration of Sessions: 30-60 min per session APARTMENT LEASING AGENT Treatments per day: 1 time per day Goals Encounter Problems Encounter Problems (Active) Template: Speech Therapy Problem: APARTMENT LEASING AGENT Varnishing Unit Tool Setter Goals Dates: Start: 10/26/24 Goal: Pt will improve cognitive linguistic skills for d/c setting. Dates: Start: 10/26/24 Expected End: 11/05/24 Problem: APARTMENT LEASING AGENT Short Term Goals Dates: Start: 10/26/24 Goal: Pt will participate in additional cognitive/language/speech assessment. Dates: Start: 10/26/24 Expected End: 11/02/24 Goal: Pt will complete a variety of mod-higher level naming tasks at 90% accuracy given min A. Dates: Start: 10/26/24 Expected End: 11/02/24 Outcomes Date/Time User Outcome 10/29/24 1604 BENEDICT Quintero Not Progressing Goal: Pt will improve complex attention for visual and/or auditory tasks to 90% accuracy given min A Dates: Start: 10/27/24 Expected End: 11/03/24 Description: Outcomes Date/Time User Outcome 10/29/24 1604 BENEDICT Quintero Progressing Goal: Pt will improve immediate and delayed recall of functional information given mod A for encoding and min A for retrieval - 90% accuracy Dates: Start: 10/27/24 Expected End: 11/03/24 Description: Outcomes Date/Time User Outcome 10/28/24 1532 BENEDICT Quintero Not Progressing Goal: Pt will use fluency strategies in a variety of speech scenarios given min A in 4 out of 5 opportunities Dates: Start: 10/27/24 Expected End: 11/03/24 Description: Outcomes Date/Time User Outcome 10/29/24 1604 BENEDICT Quintero Not Progressing Encounter Problems (Resolved) There are no resolved problems. Education Documentation Speech/Language, taught by BENEDICT Quintero at 10/29/2024 4:04 PM. Learner: Patient Readiness: Acceptance Method: Explanation Response: Verbalizes Understanding Comment: Pt was provided education about light contact techinque for fluency. Cognition, taught by BENEDICT Quintero at 10/29/2024 4:04 PM. Learner: Patient Readiness: Acceptance Method: Explanation Response: Verbalizes Understanding Comment: Pt was provided education about light contact techinque for fluency. Education Comments No comments found. Associated attestation - Edwina Nassar SLP - 10/29/2024 6:56 PM EST I attest that I, Tameka Nassar M.S.,[facility]-APARTMENT LEASING AGENT, was physically involved in the ongoing assessment, decision making, and interventions provided during today's patient care session. I have reviewed all documentation for today's 10/29/24, entered by Speech Therapy Fellow, Charlene Gottlieb, and further attest that it is an accurate clinical record of today's encounter, including accurate and appropriate charges. * Jon Chambers, NEGATIVE TURNER APPRENTICE - 10/29/2024 3:41 PM EST [facility] Physical Therapy Treatment Note 10/29/2024 Patient: Estephania Bill : 1960 Age: 63 y.o. Gender: female Primary Language: Diagnosis: No Principal Problem: There is no principal problem currently on the Problem List. Please update the Problem List and refresh. No past medical history on file. No past surgical history on file. Allergies: has No Known Allergies. Precautions: Medical Precautions: Fall Risk Safety Interventions: Call bryson within reach RUE Weight Bearing Status: Full LUE Weight Bearing Status: Full RLE Weight Bearing Status: Full LLE Weight Bearing Status: Full NURSING RECOMMENDATIONS Bed Mobility: steadying assist bed mobility Transfers: min assist stand pivot transfers with RW Ambulation: modA ambulation with RW SUBJECTIVE Pt report: Reports fatigue but willing to work in the room and nearby hallway. OBJECTIVE General Observation: Supine in bed when approached. General/Functional Assessments: Procedure/Treatment: Therapeutic Activities: Therapeutic Activity Time Entry: 90 Performed bilateral LE therex including ankle pumps, hip/knee flexion/extension, hip abduction - 3 x 10 each. Supine to sit with SBA. Performed seated LAQs at EOB. Nursing in to give medications. BP 136/71. Sit to stand transfers and gait with RW and steadying assist - 100' x 2, 150' x 1. Supine tosit with SBA. Left with call bryson, phone and alarm in place. ASSESSMENT Moving well. Required frequent rest breaks for fatigue and acclimation to change of position. 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 Goals Dates: Start: 10/26/24 Goal: Thom bed mobility Dates: Start: 10/26/24 Expected End: 11/09/24 Goal: Thom transfers LRAD Dates: Start: 10/26/24 Expected End: 11/09/24 Goal: Thom ambulation x150ft LRAD Dates: Start: 10/26/24 Expected End: 11/09/24 Goal: Thom threshold step with RW Dates: Start: 10/26/24 Expected End: 11/09/24 Goal: Thom wheelchair mobility Dates: Start: 10/26/24 Expected End: 11/09/24 Problem: PT Short Term Goals Dates: Start: 10/26/24 Goal: supervision bed mobility Dates: Start: 10/26/24 Expected End: 11/02/24 Goal: steadying assist transfers LRAD Dates: Start: 10/26/24 Expected End: 11/02/24 Goal: steadying assist ambulation x50ft LRAD Dates: Start: 10/26/24 Expected End: 11/02/24 Goal: threshold step with RW partial A Dates: Start: 10/26/24 Expected End: 11/02/24 Encounter Problems (Resolved) There are no resolved problems. Session Start/Stop Time: 1245 1415 Therapy Minutes Physical Therapy PT Individual: 90 * Carol Martínez RN - 10/29/2024 11:12 AM EST 08:50 am pt sit up in bed, pt denied abd pain or nausea, pt reported she ate at least 50% of her ammeal. Discussed with patient her last documented BM was on 10/24/24 (5 days ago). Instructed pt that constipation may be encouraged by medications: pt taking oral iron and Oxycodone, decreased oral intake and decreased activity. Explained to patient that straining to have a bowel movement is not healthy for brain vasculature. Pt stated that she stops taking her iron at home for several days so she will have a BM. Informed Medical Provider (on unit this am) Ariadna Chang NP,JUAN CARLOS of pt constipation, no discomfort, pt on oral Colace and received MOM 30cc last evening. 09:00 am Entresto held per SBP parameters; 110/72 this am. Encouraged pt to drink oral liquids, pt requested a janae amado. * LALA Van - 10/29/2024 8:39 AM EST [facility] Occupational Therapy Treatment Note 10/29/24 Patient: Estephania Bill : 1960 Age: 63 y.o. Gender: female Diagnosis: No Principal Problem: There is no principal problem currently on the Problem List. Please update the Problem List and refresh. Primary Rehab (Etiologic) Diagnosis: Patient Active Problem List Diagnosis Stroke (CMS/HCC) Diabetes (CMS/HCC) CVA (cerebral vascular accident) ([facility]) PMH: No past medical history on file. PSH: No past surgical history on file. Allergies: has No Known Allergies. Precautions: Precautions Medical Precautions: Fall Risk Safety Interventions: Call bryson within reach RUE Weight Bearing Status: Full LUE Weight Bearing Status: Full RLE Weight Bearing Status: Full LLE Weight Bearing Status: Full Vitals: 110/72 Pain: 5/10 shld and headache Subjective: I am so so Procedures/Interventions: Self care:Pt supine to sit with S. Pt transferred bed to w/c with W/W and ctg no buckling of the L knee. W/C transfer to toilet with ctg both ways. Pt able to doff/yong undergarments/pant with ctg/s, ableto completed hygiene in standing. Grooming at sink with in w/c with set up. Bathing at sink with set up. Pt washed UB . LB bathing with ctg for washing ninoska and buttocks with ctg no bucking of the knee, Dressing UB set up LB with set up and ctg for standing to pull pants to waist. Pt transferred w/c to scale with supervision both ways. Therapuetic exercies:Pt particpated in UE exerises with 2# wt on L for shld flex/ext , chest press,bicep curl, abd/add 2x10. FMC with orange putty with removal of small peg and then placed them in board. Pt propelled w/c to gym using B UE OT Assessment OT Assessment OT Assessment Results: Decreased ADL status, Decreased upper extremity strength, Decreased endurance, Decreased fine motor control, Decreased functional mobility, Decreased IADLs (imapired balance.) Prognosis: Good Evaluation/Treatment Tolerance: Patient tolerated treatment well, Patient limited by fatigue Medical Staff Made Aware: (Aware of pain.) OT Plan Plan Treatment Interventions: ADL retraining, Functional transfer training, UE strengthening/ROM, Endurance training, Equipment evaluation/education, Neuromuscular reeducation, Fine motor coordination activities OT Plan: Skilled OT OT Frequency : 5-7 days per week OT Duration of Sessions: 60-90 min per session OT Treatments per day: 1 time per day OT - Evaluation Status: Complete Goals: Encounter Problems Encounter Problems (Active) Template: Occupational Therapy Problem: OT Varnishing Unit Tool Setter Goals Dates: Start: 10/26/24 Goal: Mod I LB dressing Dates: Start: 10/26/24 Expected End: 11/09/24 Goal: S bathing in shower, including tub shower txfer. Dates: Start: 10/26/24 Expected End: 11/09/24 Goal: Toileting including txfer with LRAD mod I Dates: Start: 10/26/24 Expected End: 11/09/24 Goal: Pt will perform light meal prep at LRAD with mod I, implementing EC techniques prn Dates: Start: 10/26/24 Expected End: 11/09/24 Goal: pt will perform grooming in stand at sink with mod I Dates: Start: 10/26/24 Expected End: 11/09/24 Goal: Pt will decrease L UE 9 hole peg score by 8 seconds in order to increased INDEPENDENCE with clothing fasteners Dates: Start: 10/26/24 Expected End: 11/09/24 Description: Problem: OT Short Term Goals Dates: Start: 10/26/24 Goal: Pt will perform sponge bathing S level Dates: Start: 10/26/24 Expected End: 11/02/24 Goal: Pt will toilet with S, with LRAD Dates: Start: 10/26/24 Expected End: 11/02/24 Goal: Pt will retrieve clothing from closet RW level with no more than S Dates: Start: 10/26/24 Expected End: 11/02/24 Goal: Pt will perform tub shower txfer with steadying A Dates: Start: 10/26/24 Expected End: 11/02/24 Goal: Pt will recall 5 energy conservation techniques to implement during ADL/IADLs. Dates: Start: 10/26/24 Expected End: 11/02/24 Encounter Problems (Resolved) There are no resolved problems. Education Documentation No documentation found. Education Comments No comments found. Start/Stop )start 0845 Stop 1015 Therapy Minutes:90 * Charlene Gottlieb, BENEDICT - 10/28/2024 3:33 PM EST Speech Language Pathology Speech Language Pathology Treatment Subjective APARTMENT LEASING AGENT Start Time: 1000 APARTMENT LEASING AGENT Stop Time: 1100 APARTMENT LEASING AGENT Time Calculation (min): 60 min Subjective: Pt was alert and lying down in bed w/ RN upon arrival. Pt reported that she did not feel well and had a lot of pain today. Given mod encouragement, pt was agreeable to session. Session was interrupted by tolieting and check-ins. Objective General Visit Info General Family/Caregiver Present: No Treatment Speech and Language Speech Treatment (Individual) Time Entry: 30 Speech: Pt was provided education about diaphagamatic breathing and was able to complete x10 given models and mod verbal cues. Pt engaged in a conversation about how breathe support and slow rate is important to decrease disfluencies. Pt was able to engage in a conversation w/ verbal cues to use strategies and demonstrated x5 disfluencies during ~10 min conversation. Verbal Expression: Pt was able to generate 4/10 items in an abtract category indep. and 10/10 givenmin A for use of visualization. Cognitive Skills Therapeutic Interventions Cognitive Skills Direct Contact Time Entry: 30 Memory: Pt was introduced to repetition and rehersal as memory strategies. Pt was tasked w/ encoding BE FAST given mod A for encoding. Pt was able to immediately recall 5/6 indep. and 6/6 given mod semantic cues and 5/6 given 30- second and 1-min delay. Pt was able to recall 6/6 indep. given 2-min, 5-min, 10- min, and at the end of the session. Attention/Concentration: Pt was able to answer questions related to a 3-4 paragraph of a news article w/ 40% accuracy indep. and 70% accuracy given multiple choice cue, 90% given yes/no questions. Assessment/Plan APARTMENT LEASING AGENT Assessment APARTMENT LEASING AGENT Assessment Results: Cognitive impairments Evaluation/Treatment Tolerance: Patient limited by pain Medical Staff Made Aware: Yes Comments: RN informed of IV leaking Plan Treatment/Interventions: Cognitive linguistic functioning APARTMENT LEASING AGENT Plan: Skilled APARTMENT LEASING AGENT APARTMENT LEASING AGENT Frequency: 5-7 days per week APARTMENT LEASING AGENT Duration of Sessions: 30-60 min per session Goals Encounter Problems Encounter Problems (Active) Template: Speech Therapy Problem: APARTMENT LEASING AGENT Varnishing Unit Tool Setter Goals Dates: Start: 10/26/24 Goal: Pt will improve cognitive linguistic skills for d/c setting. Dates: Start: 10/26/24 Expected End: 11/05/24 Problem: APARTMENT LEASING AGENT Short Term Goals Dates: Start: 10/26/24 Goal: Pt will participate in additional cognitive/language/speech assessment. Dates: Start: 10/26/24 Expected End: 11/02/24 Goal: Pt will complete a variety of mod-higher level naming tasks at 90% accuracy given min A. Dates: Start: 10/26/24 Expected End: 11/02/24 Outcomes Date/Time User Outcome 10/28/24 BENEDICT Mayers Not Progressing Goal: Pt will improve complex attention for visual and/or auditory tasks to 90% accuracy given min A Dates: Start: 10/27/24 Expected End: 11/03/24 Description: Outcomes Date/Time User Outcome 10/28/24 BENEDICT Mayers Not Progressing Goal: Pt will improve immediate and delayed recall of functional information given mod A for encoding and min A for retrieval - 90% accuracy Dates: Start: 10/27/24 Expected End: 11/03/24 Description: Outcomes Date/Time User Outcome 10/28/24 Katelynn Gottlieb APARTMENT LEASING AGENT Not Progressing Goal: Pt will use fluency strategies in a variety of speech scenarios given min A in 4 out of 5 opportunities Dates: Start: 10/27/24 Expected End: 11/03/24 Description: Outcomes Date/Time User Outcome 10/28/24 1532 BENEDICT Quintero Progressing Encounter Problems (Resolved) There are no resolved problems. Education Documentation Speech/Language, taught by BENEDICT Quintero at 10/28/2024 3:32 PM. Learner: Patient Readiness: Acceptance Method: Explanation Response: Verbalizes Understanding Comment: Pt was provided education about memory strategies and fluency shaping techinques. Cognition, taught by BENEDICT Quintero at 10/28/2024 3:32 PM. Learner: Patient Readiness: Acceptance Method: Explanation Response: Verbalizes Understanding Comment: Pt was provided education about memory strategies and fluency shaping techinques. Education Comments No comments found. Associated attestation - Edwina Nassar SLP - 10/28/2024 7:07 PM EST I attest that I, Tameka Nassar M.S.,[facility]-APARTMENT LEASING AGENT, was physically involved in the ongoing assessment, decision making, and interventions provided during today's patient care session. I have reviewed all documentation for today's 10/28/24, entered by Speech Therapy Fellow, Charlene Gottlieb, and further attest that it is an accurate clinical record of today's encounter, including accurate and appropriate charges. * Lore Cortes PT - 10/28/2024 2:15 PM EST Estephania Bill was unable to complete her planned Physical Therapy session with Lore Cortes PTon 10/28/2024 due to illness and decreased tolerance/pain. Pt reporting great amount of dizziness and pain. Pt politely declining therapy at this point in time. Education provided to patient. Pt still politely declining. Next treatment attempt will be Tomorrow. * Lore Cortes, PT - 10/28/2024 2:00 PM EST [facility] Physical Therapy Treatment Note 10/28/2024 Patient: Estephania Bill : 1960 Age: 63 y.o. Gender: female Primary Language: Polish Diagnosis: CVA No past medical history on file. No past surgical history on file. Allergies: has No Known Allergies. Precautions: Medical Precautions: Fall Risk Safety Interventions: Call bryson within reach RUE Weight Bearing Status: Full LUE Weight Bearing Status: Full RLE Weight Bearing Status: Full LLE Weight Bearing Status: Full NURSING RECOMMENDATIONS Bed Mobility: steadying assist bed mobility Transfers: min assist stand pivot transfers with RW Ambulation: mod assist ambulation with RW SUBJECTIVE Pt report: I do not feel great today Pain: Pain Assessment: 0-10 Pain Score: 7 Pain Location: Shoulder Pain Orientation: Right OBJECTIVE General Observation: Pt supine in bed upon arrival to session, agreeable to trailing PT session. Procedure/Treatment: Therapeutic Activities: Therapeutic Activity Time Entry: 15 Pt supine in bed upon arrival to session, agreeable to trialing PT session. Per sheyla Joiner to participate in physical therapy post shoulder injection. Completion supine to sitting with supervision. Completion ambulation x15ft with RW and steadying assist into bathroom. Stating that she was feeling dizzy. Standing for hygiene with steadying assist with no UE support. Ambulation x10ft with RW to sink and completing hand hygiene with no UE support. Ambulation x5ft with RW and steadying assist back to edge of bed. Taking pts BP sittin/65 HR: 65. Patient stating she was really dizzy and in a lot of pain, requesting to be finished with therapy session. Education on importance of physical therapy and mobility for rehabilitation. Pt politely declining at this point in time stating. Supervision for sit to supine. Bed alarm on, call bryson given, all needs met. Education: Education Documentation Precautions, taught by Lore Cortes PT at 10/28/2024 2:36 PM. Learner: Patient Readiness: Acceptance Method: Explanation, Demonstration Response: Verbalizes Understanding, Demonstrated Understanding Body Mechanics, taught by Lore Cortes PT at 10/28/2024 2:36 PM. Learner: Patient Readiness: Acceptance Method: Explanation, Demonstration Response: Verbalizes Understanding, Demonstrated Understanding Mobility Training, taught by Lore Cortes, PT at 10/28/2024 2:36 PM. Learner: Patient Readiness: Acceptance Method: Explanation, Demonstration Response: Verbalizes Understanding, Demonstrated Understanding Fall Precautions, taught by Lore Cortes, PT at 10/28/2024 2:36 PM. Learner: Patient Readiness: Acceptance Method: Explanation, Demonstration Response: Verbalizes Understanding, Demonstrated Understanding Education Comments No comments found. ASSESSMENT PT Assessment PT Assessment Results: Decreased strength, Decreased endurance, Impaired balance, Impaired gait, Decreased mobility, Decreased coordination Prognosis: Good Evaluation/Treatment Tolerance: Patient limited by fatigue Comments: Pt with poor tolerance to session due to dizziness and pain. Declining remaining therapy session. Will continue to benefit from skilled physical therapy when able. Equipment: TBD Plan of Care Plan Treatment/Interventions: Functional transfer training, LE strengthening/ROM, Endurance training, Bed mobility, Equipment eval/education, Patient/family training, Gait training, Continued evaluation, Balance training PT Plan: Skilled PT PT Frequency: 5-7 days per week PT Duration of Sessions: 60-90 min per session PT Discharge Recommendations: (TBD) Equipment Recommended: TBD Problems/Goals Goals: Encounter Problems Encounter Problems (Active) Template: Physical Therapy Problem: PT Residential Goals Dates: Start: 10/26/24 Goal: Thom bed mobility Dates: Start: 10/26/24 Expected End: 11/09/24 Goal: Thom transfers LRAD Dates: Start: 10/26/24 Expected End: 11/09/24 Goal: Thom ambulation x150ft LRAD Dates: Start: 10/26/24 Expected End: 11/09/24 Goal: Thom threshold step with RW Dates: Start: 10/26/24 Expected End: 11/09/24 Goal: Thom wheelchair mobility Dates: Start: 10/26/24 Expected End: 11/09/24 Problem: PT Short Term Goals Dates: Start: 10/26/24 Goal: supervision bed mobility Dates: Start: 10/26/24 Expected End: 11/02/24 Goal: steadying assist transfers LRAD Dates: Start: 10/26/24 Expected End: 11/02/24 Goal: steadying assist ambulation x50ft LRAD Dates: Start: 10/26/24 Expected End: 11/02/24 Goal: threshold step with RW partial A Dates: Start: 10/26/24 Expected End: 11/02/24 Encounter Problems (Resolved) There are no resolved problems. Session Start/Stop Time: 1400 1415 Therapy Minutes Physical Therapy PT Individual: 15 * Juliann Man, DO - 10/28/2024 1:12 PM EST Images from the original note were not included. [facility] Daily Progress Note Patient name: Estephania Bill : 1960 SUBJECTIVE: Patient seen and examined at bedside today. No acute events overnight. Denies headaches, dizziness,shortness of breath, chest pain, nausea, constipation. Reports continued right shoulder pain with all AROM and PROM. Agreeable to steroid injection today. Participating in therapies: Completion [id number] ambulation with RW with steadying assist. OBJECTIVE: Vitals: 10/27/24 1844 10/27/24 2138 10/28/24 0236 10/28/24 0754 BP: 106/64 112/67 97/69 87/60 BP Location: Right arm Patient Position: Lying Pulse: 62 99 68 Resp: 18 18 Temp: 36.4 ??C (97.5 ??F) 36.6 ??C (97.9 ??F) TempSrc: Oral SpO2: 98% 98% Weight: Physical Examination: General: Alert, in no acute cardiopulmonary distress. Mental Status: Oriented to person, place and time. Normal affect. Head: Normocephalic. Eyes: Extraocular muscles grossly intact. Ear, Nose and Throat: Oropharynx clear, mucous membranes moist. Ears and nose without masses, lesions or deformities. Neck: Supple, Trachea midline. Respiratory: Clear to auscultation and percussion. No wheezing, rales or rhonchi. Cardiovascular: Heart sounds normal. No thrills. Regular rate and rhythm, no murmurs, rubs or gallops. Gastrointestinal: Abdomen soft, non-tender, non-distended. Normal bowel sounds. Neurologic: Cranial nerves II-XII grossly intact. Deep tendon reflexes +2 bilaterally. Negative Hoffmans sign bilaterally. Flexor plantar response bilaterally. Negative clonus bilaterally. Moves all extremities spontaneously. Skin: No rashes or lesions. No petechiae or purpura. No edema. Musculoskeletal: No cyanosis or clubbing. No gross deformities. Right shoulder AROM and PROM limited by pain. No erythema, warmth, or edema of the right shoulder appreciated. Strength 5/5 throughout right upper and lower extremities. Strength 4+/5 throughout left upper and lower extremities. CURRENT INPATIENT MEDICATIONS: Current Facility-Administered Medications: acetaminophen (TYLENOL) tablet 1,000 mg, 1,000 mg, oral, q8h PRN, Ghazal Peterson, PA, 1,000 mg at 10/26/24 1119 albuterol 2.5 mg /3 mL (0.083 %) nebulizer solution 2.5 mg, 2.5 mg, nebulization, q6h PRN, Candace, PA aspirin chewable tablet 81 mg, 81 mg, oral, Daily, Ghazal Peterson PA, 81 mg at 10/28/24 1000 atorvastatin (LIPITOR) tablet 40 mg, 40 mg, oral, Nightly, Ghazal Peterson, PA, 40 mg at 10/27/24 2142 budesonide (PULMICORT) 1 mg/2 mL nebulizer solution 0.5 mg, 0.5 mg, nebulization, Daily, 0.5 mg at 10/28/24 0836 AND formoterol (PERFOROMIST) 20 mcg/2 mL nebulizer solution 20 mcg, 20 mcg, nebulization, BID, Ghazal Peterson, PA, 20 mcg at 10/28/24 0836 clopidogreL (PLAVIX) tablet 75 mg, 75 mg, oral, Daily, Ghazal Peterson, PA, 75 mg at 10/28/24 1000 dextrose (D50W) 50% injection 12.5 g, 12.5 g, intravenous, q15 min PRN, Ghazal Sandersonbb, PA dextrose (D50W) 50% injection 25 g, 25 g, intravenous, q15 min PRN, Ghazal Sandersonbb, PA dextrose 15 gram/60 mL oral solution 15 g, 15 g, oral, q15 min PRN, Ghazal Sandersonbb, PA dextrose 15 gram/60 mL oral solution 30 g, 30 g, oral, q15 min PRN, UMA Orona docusate sodium (COLACE) capsule 100 mg, 100 mg, oral, BID, UMA Orona, 100 mg at 000 DULoxetine (CYMBALTA) DR capsule 60 mg, 60 mg, oral, Daily, UMA Orona, 60 mg at 10/28/24 1000 ferrous sulfate tablet 325 mg, 325 mg, oral, Daily, UMA Orona, 325 mg at 10/28/24 1000 gabapentin (NEURONTIN) capsule 400 mg, 400 mg, oral, q8h SUNIL, Juliann Man DO Glucagon HCl (rDNA) injection 1 mg, 1 mg, intramuscular, Once PRN, UMA Orona insulin lispro injection 2-12 Units, 2-12 Units, subcutaneous, TID AC, UMA Orona lidocaine 4 % patch 1 patch, 1 patch, Topical, Daily, Juliann Man DO, 1 patch at 10/28/24 0836 magnesium hydroxide (MILK OF MAGNESIA) 400 mg/5 mL suspension 30 mL, 30 mL, oral, Nightly PRN, UMA Orona oxyCODONE (ROXICODONE) immediate release tablet 2.5 mg, 2.5 mg, oral, q4h PRN, Juliann Man DO, 2.5 mg at 10/28/24 1004 pantoprazole (PROTONIX) EC tablet 40 mg, 40 mg, oral, q AM AC, UMA Orona, 40 mg at 10/28/24 0545 sacubitriL-valsartan (ENTRESTO) 24-26 mg per tablet 1 tablet, 1 tablet, oral, BID, UMA Saez, 1 tablet at 10/27/24 2138 sodium chloride 0.9 % flush 3 mL, 3 mL, intravenous, q8h [facility], Juliann Man DO traZODone (DESYREL) tablet 150 mg, 150 mg, oral, Nightly, UMA Orona, 150 mg at 10/27/24 2142 LABS: Lab Results Component Value Date WBC 5.4 10/26/2024 RBC 5.10 (H) 10/26/2024 HGB 12.2 10/26/2024 HCT 39.8 10/26/2024 MCV 78.7 (L) 10/26/2024 MCHC 30.7 (L) 10/26/2024 RDW 15.7 (H) 10/26/2024 PLT 253 10/26/2024 MPV 11.0 10/26/2024 NRBC 0.0 10/26/2024 DIFF Lab Results Component Value Date LYMPHOPCT 49.4 10/26/2024 NEUTROABS 1.69 10/26/2024 LYMPHSABS 2.66 10/26/2024 MONOABS 0.58 10/26/2024 EOSABS 0.42 10/26/2024 BASOSABS 0.02 10/26/2024 IMMGRANABS 0.01 10/26/2024 RETIC No results found for: RETIC , RETICCTPCT Lab Results Component Value Date NA 137 10/26/2024 K 3.7 10/26/2024 CL 105 10/26/2024 CO2 27 10/26/2024 GLUCOSE 134 (H) 10/28/2024 BUN 15 10/26/2024 CREATININE 0.92 10/26/2024 CALCIUM 9.6 10/26/2024 PROT 7.2 10/26/2024 ALBUMIN 3.7 10/26/2024 BILITOT 0.4 10/26/2024 AST 14 10/26/2024 ALT 13 10/26/2024 ALKPHOS 82 10/26/2024 EGFR 70 10/26/2024 IMPRESSION & PLAN: #Impaired mobility and self-care -Secondary to acute CVA -Continue PT, OT, APARTMENT LEASING AGENT, and nursing care #Acute CVA #Left Hemiparesis -s/p TNK 10/19/2024 -Aspirin 81 mg daily -Plavix 75 mg daily -Atorvastatin 40 mg nightly -continue therapies -Follow up with Neurology stroke clinic after DC #HFpEF #CAD s/p CABG in 2019 #Hypertension -Entresto 97-103 mg 1 tab BID --> decreased to 24-26mg 1 tab BID with holding parameters on 10/26 due to hypotension -Carvedilol 25 mg BID w/ meals --> decreased to 12.5mg BID w/meals on 10/26 due to hypotension --> discontinued on 10/27 due to hypotension #Hyperlipidemia -Atorvastatin 40 mg nightly #Prediabetes -A1C 6.1 on 10/26 -Diabetic diet -Sliding scale w/POCs #Chronic Pain #Pain management -Duloxetine 60mg daily -Gabapentin 800 mg Q8H --> decreased to 600mg Q8H on 10/26 due to creatinine clearance --> decreased to 400mg Q8H on 10/28 due to hypotension -Acetaminophen 100 mg Q8H PRN pain #Right shoulder pain -Xray right shoulder 10/26 negative -Lidocaine patch daily -heat/ice PRN -Oxycodone 2.5mg Q4H PRN -s/p right shoulder intra-articular steroid injection on 10/28 *Procedure: Right intra-articular shoulder steroid injection - Patient was seated comfortably in her wheelchair. Using anatomic landmarks the right shoulder was approached from the posterior lateral position. After cleansing the skin with Betadine x 3 needle was inserted. After negative aspiration a mixture of 3 cc 1% lidocaine and 40 mg Kenalog was injected into the right shoulder using a 25-gauge needle. No complication. Patient reported slight improvement of her pain after the injection. #Anxiety -Trazodone 150 mg nightly #GERD -Pantoprazole 40mg daily #Anemia -Ferrous sulfate 325mg daily #Bowel management -Colace 100mg BID DVTP: Aspirin 81 mg po daily and Plavix 75 mg po daily w/ compression device * Jarret Bullock OT - 10/28/2024 8:30 AM EST sEtephania Bill was unable to complete her planned Occupational Therapy session with Jarret Bullock OT on 10/28/2024 due to illness. RN reporting that pt's systolic BP in the 80s in supine, and pt reporting dizziness. Pt also declining to participate therapy this date due to pain and dizziness. Next treatment attempt will be Tomorrow. * Charlene Pricelivan, APARTMENT LEASING AGENT - 10/27/2024 3:58 PM EST Speech Language Pathology Speech Language Pathology Treatment Subjective APARTMENT LEASING AGENT Start Time: 929 APARTMENT LEASING AGENT Stop Time: 1029 APARTMENT LEASING AGENT Time Calculation (min): 60 min Subjective: Pt was alert and sitting upright in bed for session. Pt was pleasant and cooperative throughout the session. Objective General Visit Info General Family/Caregiver Present: No Treatment Speech and Language Speech Treatment (Individual) Time Entry: 30 Speech: Pt reported that she feels like her disfluencies has increased since hospitalization. Pt reported that it impacts her daily communication. Pt read the [place] and 15% of her speech was disfluencies (19 disfluencies/ 126 syllables) which falls within the stuttering range. Cognitive Skills Therapeutic Interventions Cognitive Skills Direct Contact Time Entry: 30 Other Cognitive Skills Activity: Pt participated in the CLQT, see results below Cognitive-Linguistic skills were formally assessed using the Cognitive Linguistic Quick Test (CLQT). The CLQT assesses strengths and weaknesses in five cognitive domains (Attention, Memory, ExecutiveFunctions, Language, and Visuospatial Skills). CLQT is for use with adults with known or suspected neurological dysfunction. Subtests Administered Raw Score Personal Facts Yes 8 Symbol Cancellation Yes 12 Confrontation Naming Yes 10 Clock Drawing Yes 9 Story Retelling Yes 2 Symbol Trails Yes 4 Generative Naming Yes 2 Design Memory Yes 4 Mazes Yes 5 Design Generation Yes 4 Domain Score Impairment/Severity Rating Attention 156 mild Memory 110 moderate Executive Function 15 severe Languages 22 moderate Visuo-spatial Skills 67 mild Composite Severity Rating 2.2 moderate Clock Drawing Severity Rating 9 moderate Assessment/Plan APARTMENT LEASING AGENT Assessment APARTMENT LEASING AGENT Assessment Results: Cognitive impairments Evaluation/Treatment Tolerance: Patient tolerated treatment well Plan Treatment/Interventions: Cognitive linguistic functioning APARTMENT LEASING AGENT Plan: Skilled APARTMENT LEASING AGENT APARTMENT LEASING AGENT Frequency: 5-7 days per week APARTMENT LEASING AGENT Duration of Sessions: 30-60 min per session APARTMENT LEASING AGENT Treatments per day: 1 time per day APARTMENT LEASING AGENT - Next Appointment: 10/28/24 Goals Encounter Problems Encounter Problems (Active) Template: Speech Therapy Problem: APARTMENT LEASING AGENT [employer] Setter Goals Dates: Start: 10/26/24 Goal: Pt will improve cognitive linguistic skills for d/c setting. Dates: Start: 10/26/24 Expected End: 11/05/24 Problem: APARTMENT LEASING AGENT Short Term Goals Dates: Start: 10/26/24 Goal: Pt will participate in additional cognitive/language/speech assessment. Dates: Start: 10/26/24 Expected End: 11/02/24 Goal: Pt will complete a variety of mod-higher level naming tasks at 90% accuracy given min A. Dates: Start: 10/26/24 Expected End: 11/02/24 Goal: Pt will improve complex attention for visual and/or auditory tasks to 90% accuracy given min A Dates: Start: 10/27/24 Expected End: 11/03/24 Description: Goal: Pt will improve immediate and delayed recall of functional information given mod A for encoding and min A for retrieval - 90% accuracy Dates: Start: 10/27/24 Expected End: 11/03/24 Description: Goal: Pt will use fluency strategies in a variety of speech scenarios given min A in 4 out of 5 opportunities Dates: Start: 10/27/24 Expected End: 11/03/24 Description: Encounter Problems (Resolved) There are no resolved problems. Education Documentation Speech/Language, taught by BENEDICT Quintero at 10/27/2024 3:57 PM. Learner: Patient Readiness: Acceptance Method: Explanation Response: Verbalizes Understanding Cognition, taught by BENEDICT Quintero at 10/27/2024 3:57 PM. Learner: Patient Readiness: Acceptance Method: Explanation Response: Verbalizes Understanding Education Comments No comments found. Associated attestation - Edwina Nassar SLP - 10/27/2024 10:08 PM EST I attest that I, Tameka Nassar M.S.,[facility]-APARTMENT LEASING AGENT, was physically involved in the ongoing assessment, decision making, and interventions provided during today's patient care session. I have reviewed all documentation for today's 10/27/24, entered by Speech Therapy Fellow, Charlene Gottlieb, and furtherattest that it is an accurate clinical record of today's encounter, including accurate and appropriate charges. * UMA Orona - 10/27/2024 1:09 PM EST Images from the original note were not included. [facility] Daily Progress Note Patient name: Estephania Bill : 1960 SUBJECTIVE: Patient seen and examined at bedside today. No acute events overnight. Denies headaches, dizziness,shortness of breath, chest pain, nausea, constipation. OBJECTIVE: Vitals: 10/26/24 2100 10/27/24 0529 10/27/24 0700 10/27/24 0750 BP: 101/67 107/63 111/66 107/83 BP Location: Right arm Right arm Right arm Patient Position: Sitting Pulse: 70 71 68 79 Resp: 16 16 Temp: 36.6 ??C (97.9 ??F) 36.3 ??C (97.3 ??F) TempSrc: Oral Oral SpO2: 98% 99% 100% Weight: Physical Examination: General: Alert, in no acute cardiopulmonary distress. Mental Status: Oriented to person, place and time. Normal affect. Head: Normocephalic. Eyes: Pupils are equal, round and reactive to light. Extraocular muscles intact. Ear, Nose and Throat: Oropharynx clear, mucous membranes moist. Ears and nose without masses, lesions or deformities. Neck: Supple, Trachea midline. Respiratory: Clear to auscultation and percussion. No wheezing, rales or rhonchi. Cardiovascular: Heart sounds normal. No thrills. Regular rate and rhythm, no murmurs, rubs or gallops. Gastrointestinal: Abdomen soft, non-tender, non-distended. Normal bowel sounds. Genitourinary: No costovertebral angle tenderness. Neurologic: Cranial nerves II-XII intact. Deep tendon reflexes +2 bilaterally. Negative Hoffmans sign bilaterally. Flexor plantar response bilaterally. Negative clonus bilaterally. Moves all extremities spontaneously. Sensation intact bilaterally. Skin: No rashes or lesions. No petechiae or purpura. No edema. Musculoskeletal: No cyanosis or clubbing. No gross deformities. Right shoulder AROM limited by pain. Strength 5/5 throughout right upper and lower extremities. Strength 4+/5 throughout left upper andlower extremities. CURRENT INPATIENT MEDICATIONS: Current Facility-Administered Medications: acetaminophen (TYLENOL) tablet 1,000 mg, 1,000 mg, oral, q8h PRN, UMA Orona, 1,000 mg at 10/26/24 1119 albuterol 2.5 mg /3 mL (0.083 %) nebulizer solution 2.5 mg, 2.5 mg, nebulization, q6h PRN, Sanfordbb, PA aspirin chewable tablet 81 mg, 81 mg, oral, Daily, Susanita Nicholas, PA, 81 mg at 10/27/24807 atorvastatin (LIPITOR) tablet 40 mg, 40 mg, oral, Nightly, Susanita Nicholas, PA, 40 mg at 10/26/242043 budesonide (PULMICORT) 1 mg/2 mL nebulizer solution 0.5 mg, 0.5 mg, nebulization, Daily, 0.5 mg at 10/27/24806 AND formoterol (PERFOROMIST) 20 mcg/2 mL nebulizer solution 20 mcg, 20 mcg, nebulization, BID, Ghazal Sandersonbb, PA, 20 mcg at 10/27/24806 carvediloL (COREG) tablet 6.25 mg, 6.25 mg, oral, BID with meals, UMA Saez clopidogreL (PLAVIX) tablet 75 mg, 75 mg, oral, Daily, Susanita Nicholas, PA, 75 mg at 10/27/24807 dextrose (D50W) 50% injection 12.5 g, 12.5 g, intravenous, q15 min PRN, Ghazal SubramanianNabb, PA dextrose (D50W) 50% injection 25 g, 25 g, intravenous, q15 min PRN, Ghazal Nicholas, PA dextrose 15 gram/60 mL oral solution 15 g, 15 g, oral, q15 min PRN, Oneidaanita Nicholas, PA dextrose 15 gram/60 mL oral solution 30 g, 30 g, oral, q15 min PRN, Susanita Nicholas, PA docusate sodium (COLACE) capsule 100 mg, 100 mg, oral, BID, Susanita Nicholas, PA, 100 mg at 8 DULoxetine (CYMBALTA) DR capsule 60 mg, 60 mg, oral, Daily, Susanita Nicholas, PA, 60 mg at 10/27/24807 ferrous sulfate tablet 325 mg, 325 mg, oral, Daily, Susanita Nicholas, PA, 325 mg at 10/27/24 0808 gabapentin (NEURONTIN) capsule 600 mg, 600 mg, oral, q8h SUNIL, Juliann Man DO, 600 mg at 10/27/24 0530 Glucagon HCl (rDNA) injection 1 mg, 1 mg, intramuscular, Once PRN, UMA Orona insulin lispro injection 2-12 Units, 2-12 Units, subcutaneous, TID AC, UMA Orona lidocaine 4 % patch 1 patch, 1 patch, Topical, Daily, Juliann Man DO, 1 patch at 10/27/24 0808 oxyCODONE (ROXICODONE) immediate release tablet 2.5 mg, 2.5 mg, oral, q4h PRN, Juliann Man DO, 2.5 mg at 10/27/24 0809 pantoprazole (PROTONIX) EC tablet 40 mg, 40 mg, oral, q AM AC, UMA Orona, 40 mg at 10/27/24 0530 sacubitriL-valsartan (ENTRESTO) 24-26 mg per tablet 1 tablet, 1 tablet, oral, BID, UMA Saez, 1 tablet at 10/27/24 0824 traZODone (DESYREL) tablet 150 mg, 150 mg, oral, Nightly, UMA Orona, 150 mg at 10/26/242043 LABS: Lab Results Component Value Date WBC 5.4 10/26/2024 RBC 5.10 (H) 10/26/2024 HGB 12.2 10/26/2024 HCT 39.8 10/26/2024 MCV 78.7 (L) 10/26/2024 MCHC 30.7 (L) 10/26/2024 RDW 15.7 (H) 10/26/2024 PLT 253 10/26/2024 MPV 11.0 10/26/2024 NRBC 0.0 10/26/2024 DIFF Lab Results Component Value Date LYMPHOPCT 49.4 10/26/2024 NEUTROABS 1.69 10/26/2024 LYMPHSABS 2.66 10/26/2024 MONOABS 0.58 10/26/2024 EOSABS 0.42 10/26/2024 BASOSABS 0.02 10/26/2024 IMMGRANABS 0.01 10/26/2024 RETIC No results found for: RETIC , RETICCTPCT Lab Results Component Value Date NA 137 10/26/2024 K 3.7 10/26/2024 CL 105 10/26/2024 CO2 27 10/26/2024 GLUCOSE 98 10/27/2024 BUN 15 10/26/2024 CREATININE 0.92 10/26/2024 CALCIUM 9.6 10/26/2024 PROT 7.2 10/26/2024 ALBUMIN 3.7 10/26/2024 BILITOT 0.4 10/26/2024 AST 14 10/26/2024 ALT 13 10/26/2024 ALKPHOS 82 10/26/2024 EGFR 70 10/26/2024 IMPRESSION & PLAN: #Impaired mobility and self-care -Secondary to acute CVA -Continue PT, OT, APARTMENT LEASING AGENT, and nursing care #Acute CVA #Left Hemiparesis -s/p TNK 10/19/2024 -Aspirin 81 mg daily -Plavix 75 mg daily -Atorvastatin 40 mg nightly -continue therapies -Follow up with neurology stroke clinic after DC #HFpEF #CAD s/p CABG in 2019 #Hypertension -Entresto 97-103 mg 1 tab BID --> decreased to 24-26mg 1 tab BID on 10/26 due to hypotension -Carvedilol 25 mg BID w/ meals --> decreased to 12.5mg BID w/meals on 10/26 due to hypotension #Hyperlipidemia -Atorvastatin 40 mg nightly #Prediabetes -A1C 6.1 on 10/26 -Diabetic diet -Sliding scale w/POCs #Chronic Pain #Pain management -Duloxetine 60mg daily -Gabapentin 800 mg Q8H -Acetaminophen 100 mg Q8H PRN pain #Right shoulder pain -Xray right shoulder 10/26 negative -Lidocaine patch daily -heat/ice PRN -Oxycodone 2.5mg Q4H PRN #Anxiety -Trazodone 150 mg nightly #GERD -Pantoprazole 40mg daily #Anemia -Ferrous sulfate 325mg daily #Bowel management -Colace 100mg BID DVTP: Aspirin 81 mg po daily and Plavix 75 mg po daily w/ compression device Associated attestation - Juliann Man DO - 10/28/2024 1:12 PM EST Agree with progress note, assessment, and plan as documented by MUA today. * UMA Saez - 10/27/2024 12:49 PM EST Images from the original note were not included. [facility] CARL[facility] PROGRESS NOTE Date: 10/27/2024 Author: UMA Saez Patient ID: Estephania Bill is a 63 y.o. female : 1960 MR#: [id number] SUBJECTIVE Subjective She reports that her left side is improving. Otherwise she is sleeping through the night her appetite is fair. She is moving her bowels she is voiding. ROS Constitutional :no fever chills , appetite fair, sleeping well HEENT: denies headaches Respiratory: denies shortness of breath, coughing or wheezing Cardiac: denies chest pain, palpitations, : No abd pain, no N/V. Genitourinary: denies any dysuria frequency urgency Musculoskeletal: No joint pain ,back pain Allergies Patient has no known allergies. Current Medications: aspirin, 81 mg, oral, Daily atorvastatin, 40 mg, oral, Nightly budesonide, 0.5 mg, nebulization, Daily And formoterol, 20 mcg, nebulization, BID carvediloL, 6.25 mg, oral, BID with meals clopidogreL, 75 mg, oral, Daily docusate sodium, 100 mg, oral, BID DULoxetine, 60 mg, oral, Daily ferrous sulfate, 325 mg, oral, Daily gabapentin, 600 mg, oral, q8h SUNIL insulin lispro, 2-12 Units, subcutaneous, TID AC lidocaine, 1 patch, Topical, Daily pantoprazole, 40 mg, oral, q AM AC sacubitriL-valsartan, 1 tablet, oral, BID traZODone, 150 mg, oral, Nightly PRN medications: acetaminophen, albuterol, dextrose 50%, dextrose 50%, dextrose, dextrose, glucagoninjection, oxyCODONE OBJECTIVE Vitals: 10/26/24 2100 10/27/24 0529 10/27/24 0700 10/27/24 0750 BP: 101/67 107/63 111/66 107/83 BP Location: Right arm Right arm Right arm Patient Position: Sitting Pulse: 70 71 68 79 Resp: 16 16 Temp: 36.6 ??C (97.9 ??F) 36.3 ??C (97.3 ??F) TempSrc: Oral Oral SpO2: 98% 99% 100% Weight: PHYSICAL EXAM General: conscious alert no acute [...] psych: mood stable appearing, good eye contact. LABS HEMATOLOGY Lab Results Component Value Date WBC 5.4 10/26/2024 HGB 12.2 10/26/2024 HCT 39.8 10/26/2024 MCV 78.7 (L) 10/26/2024 PLT 253 10/26/2024 CHEMISTRY Lab Results Component Value Date GLUCOSE 98 10/27/2024 NA 137 10/26/2024 K 3.7 10/26/2024 CO2 27 10/26/2024 CL 105 10/26/2024 BUN 15 10/26/2024 CREATININE 0.92 10/26/2024 EGFR 70 10/26/2024 CALCIUM 9.6 10/26/2024 ANIONGAP 5 10/26/2024 Imaging: XR Shoulder 2+ Views Right Narrative: INDICATION: Shoulder pain FINDINGS: Minimum of 2 views of the right shoulder were obtained. No prior studies available for comparison. No fracture or dislocation. No radiopaque foreign body or periosteal reaction is noted. No significant soft tissue abnormality. Mild degenerative changes. Impression: No shoulder fracture or dislocation. [id number] -------- FINAL REPORT -------- Dictated By: Dell Abraham Dictated Date: 10/26/2024 14:24 ET Assigned Physician: Dell Abraham Reviewed and Electronically Signed By: Jarad, Parshant Signed Date: 10/26/2024 14:25 ET Workstation ID: [id number] Transcribed By: Self Edit Transcribed Date: 10/26/2024 14:24 ET ASSESSMENT & PLAN This is a 63-year-old female with a history of coronary artery disease status post CABG, CVA with residual left-sided hemiparesis, PAD/PVD who presented to [facility] with chest pain radiating down left arm. [...] with her stroke clinic after discharge at [facility] Per rehab team Chronic residual left-sided weakness [...] Norvasc 10 mg daily--> DC Entresto 97/103 1 tablet twice a day--> 24 mg/2 #History of CAD/history of CABG Ischemic cardiomyopathy [...] nightly DVT prophylaxis defer to Dr. Man DAILY CARE CHECKLIST * Lore Sophia, PT - 10/27/2024 12:30 PM EST [facility] Physical Therapy Treatment Note 10/27/2024 Patient: Estephania Bill : 1960 Age: 63 y.o. Gender: female Primary Language: Polish Diagnosis: CVA No past medical history on file. No past surgical history on file. Allergies: has No Known Allergies. Precautions: Medical Precautions: Fall Risk Safety Interventions: Call bryson within reach RUE Weight Bearing Status: Full LUE Weight Bearing Status: Full RLE Weight Bearing Status: Full LLE Weight Bearing Status: Full NURSING RECOMMENDATIONS Bed Mobility: steadying assist bed mobility Transfers: min assist stand pivot transfers with RW Ambulation: modA ambulation with RW SUBJECTIVE Pt report: I feel like I am doing better than I did yesterday. Pain: Pain Assessment: 0-10 Pain Score: 8 Pain Location: Shoulder Pain Orientation: Right OBJECTIVE General Observation: Pt supine in bed upon arrival to session, agreeable to PT session. Vitals: BP: 111/65 Heart Rate: 61 SpO2: 99 % Procedure/Treatment: Neuromuscular Reeducation: Balance/Neuromuscular Re-Education Neuromuscular Re-Education Time Entry: 90 Pt supine in bed upon arrival to session, agreeable to PT session. Completion supine to sitting with HOB elevated with supervision. Stand pivot transfer from edge of bed to wheelchair with steadying assist and use of RW. Supervision for wheelchair mobility from room down to therapy gym. Completion 3o181bm ambulation with RW with steadying assist. As pt fatigues, increases in LLE ataxia. Completion x5 step ups to 6 inch step with BUE support, leading with RLE, steadying assist. Completion 1x4 stairs with B handrails leading with RLE on ascent on LLE descent, steadying assist. Blocking L knee, no buckling. Increased ataxia on descent. Completion 2x50ft ambulation with SBQC with steadying harmeet t. Completing with step to gait pattern. Cues for cane sequencing. Decreased pace. Completion 2x15ft ambulation with no AD and partial for more than steadying assist. Very small steps, postural sway with increasing distance. Supervision for wheelchair mobility back to room. Requesting to use bathroom. Ambulation with RW x10ft into bathroom steadying assist. Steadying for sit to toilet. Steadying for stand from toilet. Ambulation x5ft with RW to sink, standing with no UE support for hand hygiene, ambulation x5ft back to bed. Supervision for sit to supine. Bed alarm on, call bryson given, all needs met. Education: Education Documentation Precautions, taught by Lore Cortes PT at 10/27/2024 1:07 PM. Learner: Patient Readiness: Acceptance Method: Explanation, Demonstration Response: Verbalizes Understanding, Demonstrated Understanding Body Mechanics, taught by Lore Cortes PT at 10/27/2024 1:07 PM. Learner: Patient Readiness: Acceptance Method: Explanation, Demonstration Response: Verbalizes Understanding, Demonstrated Understanding Mobility Training, taught by Lore Cortes PT at 10/27/2024 1:07 PM. Learner: Patient Readiness: Acceptance Method: Explanation, Demonstration Response: Verbalizes Understanding, Demonstrated Understanding Discharge Planning, taught by Lore Cortes PT at 10/27/2024 1:07 PM. Learner: Patient Readiness: Acceptance Method: Explanation, Demonstration Response: Verbalizes Understanding, Demonstrated Understanding Fall Precautions, taught by Lore Cortes PT at 10/27/2024 1:07 PM. Learner: Patient Readiness: Acceptance Method: Explanation, Demonstration Response: Verbalizes Understanding, Demonstrated Understanding Education Comments No comments found. ASSESSMENT PT Assessment PT Assessment Results: Decreased strength, Decreased endurance, Impaired balance, Impaired gait, Decreased mobility, Decreased coordination Prognosis: Good Evaluation/Treatment Tolerance: Patient tolerated treatment well Comments: Pt with good response to treatment session. Improvements in functional mobility vs initial evaluation with increased ambulation disance and decreasing assist. Will continue to bnefit from skilled physical therapy. 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 Goals Dates: Start: 10/26/24 Goal: Thom bed mobility Dates: Start: 10/26/24 Expected End: 11/09/24 Goal: Thom transfers LRAD Dates: Start: 10/26/24 Expected End: 11/09/24 Goal: Thom ambulation x150ft LRAD Dates: Start: 10/26/24 Expected End: 11/09/24 Goal: Thom threshold step with RW Dates: Start: 10/26/24 Expected End: 11/09/24 Goal: Thom wheelchair mobility Dates: Start: 10/26/24 Expected End: 11/09/24 Problem: PT Short Term Goals Dates: Start: 10/26/24 Goal: supervision bed mobility Dates: Start: 10/26/24 Expected End: 11/02/24 Goal: steadying assist transfers LRAD Dates: Start: 10/26/24 Expected End: 11/02/24 Goal: steadying assist ambulation x50ft LRAD Dates: Start: 10/26/24 Expected End: 11/02/24 Goal: threshold step with RW partial A Dates: Start: 10/26/24 Expected End: 11/02/24 Encounter Problems (Resolved) There are no resolved problems. Session Start/Stop Time: 1230 1400 Therapy Minutes Physical Therapy PT Individual: 90 * Lia Hastings - 10/27/2024 8:45 AM EST Social Work Note Integrated Hockey Instructor Dx: Hx of depression and anxiety: Met with patient at bedside his morning, introduced myself and the services. Was able to assess thepatients mood and behaviors. Patient denied any hx of Si or self harm thoughts or behaviors. She did report a HX of depression and anxiety, and is on medication to treat these symptoms. Her PCP is the prescriber. She recently moved to [place] from [place]. [place] [facility] [place] andthat has her concerned about returning home. She reports that anxiety is still present during her stay however she is managing the symptoms well. She is eating fairly and sleeping okay. She has minimal support and is hoping to attain the skills she needs to go home and be independent. No other concerns at this moment, will monitor. Lia Hastings, MS Clincian * Jarret Bullock, OT - 10/27/2024 7:00 AM EST [facility] Occupational Therapy Treatment Note 10/27/24 Patient: Estephania Bill : 1960 Age: 63 y.o. Gender: female Diagnosis: No Principal Problem: There is no principal problem currently on the Problem List. Please update the Problem List and refresh. Primary Rehab (Etiologic) Diagnosis: Patient Active Problem List Diagnosis Stroke (CMS/HCC) Diabetes ([facility]/HCC) CVA (cerebral vascular accident) ([facility]) PMH: No past medical history on file. PSH: No past surgical history on file. Allergies: has No Known Allergies. Precautions: Precautions Medical Precautions: Fall Risk Safety Interventions: Call bryson within reach RUE Weight Bearing Status: Full LUE Weight Bearing Status: Full RLE Weight Bearing Status: Full LLE Weight Bearing Status: Full Vitals: BP: 111/66 Heart Rate: 68 Pain: Pain Assessment Pain Assessment: 0-10 Pain Score: 8 Pain Type: Acute pain Pain Location: Shoulder Pain Orientation: Right Subjective: better (pain). Procedures/Interventions: ADLs/IADLs Self Care/Home Management (ADLs) Time Entry: 75 Pt asleep upon arrival, increased time for pt to awaken with verbal, environmental modifications, and tactile cues, agreeable to shower. Vitals assessed, see above. Supine>Sit EOB S. SPT at RW from bed>w/c Steadying A. Seated in w/c at sink pt performed oral hygiene with ROSEN of materials. Pt dep wheeled to shower. SPT with UE support on grab bars steadying A. Pt doffed pants steadying A in stand, pt able to remove from around feet once seated. Pt bathed mainly seated on shower chair, with use of hand held shower. STS with UE support on grab bars steadying A to bathe buttocks and ninoska area. No LE ataxia noted this date with standing. Pt dried off seated and dressed in efren to return to room. Once back in room pt combed hair w/c level with ROSEN. Pt donned underwear and pants with steadying A in stand. BP post shower 107/83. Pt ate breakfast with mod I. While pt ate, education provided via handout of BE FAST s/s of stroke. Therapeutic Exercise Therapeutic Exercise Time Entry: 15 Pt educated and provided handout of UE theraputty HEP to target increasing dental coordinator and pinch strength,in down time from therapy, with use of pink grade theraputty. Pt provided visual demo of several exercises including tip pinch with thumb and digits 2-5, lateral pinch, gross grasp, pulling apart, and twisting. Pt able to return demo all exercises. Pt requesting to return to bed, Short distance amb back to bed at RW steadying A, verbal cues for hand placement during STS. Sit>Supine S. Bed alarm on and call bryson in reach, all needs met. OT Assessment OT Assessment OT Assessment Results: Decreased ADL status, Decreased upper extremity strength, Decreased endurance, Decreased fine motor control, Decreased functional mobility, Decreased IADLs (imapired balance.) Prognosis: Good Evaluation/Treatment Tolerance: Patient tolerated treatment well, initially limited by fatigue, however not a barrier as session progressed. Pt with no notable LE ataxia this session as compared to eval. Min verbal cues for UE placement during STS. OT Plan Plan Treatment Interventions: ADL retraining, Functional transfer training, UE strengthening/ROM, Endurance training, Equipment evaluation/education, Neuromuscular reeducation, Fine motor coordination activities OT Plan: Skilled OT OT Frequency : 5-7 days per week OT Duration of Sessions: 60-90 min per session OT Treatments per day: 1 time per day OT - Evaluation Status: Complete Goals: Encounter Problems Encounter Problems (Active) Template: Occupational Therapy Problem: OT Varnishing Unit Tool Setter Goals Dates: Start: 10/26/24 Goal: Mod I LB dressing Dates: Start: 10/26/24 Expected End: 11/09/24 Goal: S bathing in shower, including tub shower txfer. Dates: Start: 10/26/24 Expected End: 11/09/24 Goal: Toileting including txfer with LRAD mod I Dates: Start: 10/26/24 Expected End: 11/09/24 Goal: Pt will perform light meal prep at LRAD with mod I, implementing EC techniques prn Dates: Start: 10/26/24 Expected End: 11/09/24 Goal: pt will perform grooming in stand at sink with mod I Dates: Start: 10/26/24 Expected End: 11/09/24 Goal: Pt will decrease L UE 9 hole peg score by 8 seconds in order to increased INDEPENDENCE with clothing fasteners Dates: Start: 10/26/24 Expected End: 11/09/24 Description: Problem: OT Short Term Goals Dates: Start: 10/26/24 Goal: Pt will perform sponge bathing S level Dates: Start: 10/26/24 Expected End: 11/02/24 Goal: Pt will toilet with S, with LRAD Dates: Start: 10/26/24 Expected End: 11/02/24 Goal: Pt will retrieve clothing from closet RW level with no more than S Dates: Start: 10/26/24 Expected End: 11/02/24 Goal: Pt will perform tub shower txfer with steadying A Dates: Start: 10/26/24 Expected End: 11/02/24 Goal: Pt will recall 5 energy conservation techniques to implement during ADL/IADLs. Dates: Start: 10/26/24 Expected End: 11/02/24 Encounter Problems (Resolved) There are no resolved problems. Education Documentation Warning Signs and Symptoms of Stroke, taught by Jarret Bullock OT at 10/27/2024 9:19 AM. Learner: Patient Readiness: Acceptance Method: Explanation, Demonstration, Handout Response: Verbalizes Understanding, Demonstrated Understanding, Needs Reinforcement ADL Training, taught by Jarret Bullock OT at 10/27/2024 9:19 AM. Learner: Patient Readiness: Acceptance Method: Explanation, Demonstration, Handout Response: Verbalizes Understanding, Demonstrated Understanding, Needs Reinforcement Home Exercise Program, taught by Jarret Bullock OT at 10/27/2024 9:19 AM. Learner: Patient Readiness: Acceptance Method: Explanation, Demonstration, Handout Response: Verbalizes Understanding, Demonstrated Understanding, Needs Reinforcement Body Mechanics, taught by Jarret Bullock OT at 10/27/2024 9:19 AM. Learner: Patient Readiness: Acceptance Method: Explanation, Demonstration, Handout Response: Verbalizes Understanding, Demonstrated Understanding, Needs Reinforcement Education Comments No comments found. Start/Stop Time OT Time Calculation OT Start Time: 07 OT Stop Time: 829 OT Time Calculation (min): 90 min Therapy Minutes: Occupational Therapy OT Individual: 90 * June Schmid RN - 10/27/2024 4:34 AM EST Problem: Cognitive: Georges Garfield Fall Risk Goal: Last Known Fall Outcome: Progressing Goal: Mobility requiring assistance of person or device Outcome: Progressing Goal: Dizziness Outcome: Progressing Goal: Medications Outcome: Progressing Goal: Mental Status/LOC/Awareness Outcome: Progressing Goal: Toileting Needs Outcome: Progressing Goal: Volume and Electrolyte Status Outcome: Progressing Goal: Communication/Sensory Outcome: Progressing Goal: Behavior Outcome: Progressing Goals: Identify possible barriers to meeting goals/advancing plan of care: Pt working towards goals. Stability of the patient: Moderately Unstable - Medium risk of patient condition declining or worsening End of Shift Summary: Pt sleeping well through the night with no complaints or signs of distress. Hourly and prn safety checks maintained. Call bryson in reach, pt encouraged to use the call bryson for assist with any needs. * Juliann Man DO - 10/26/2024 5:13 PM EST Images from the original note were not included. PHYSICAL MEDICINE AND REHABILITATION Individualized Overall Plan of Care Patient Name: Estephania Bill Date of : 1960 Sex: Female Payor Info: Pay[place] / Plan[place] / Product Type: *No Product type* / Admit Date/Time: 10/25/2024 1:27 PM Etiologic Diagnosis: Acute CVA with left hemiparesis Rehab Impairment Group Code: 01.1 stroke, left body involvement, right brain Expected LOS/Duration of Therapy: 2 weeks Expected Discharge Destination: Home with home health services Medical Prognosis: Good Medical Issues Actively Being Managed: Acute CVA with left hemiparesis, HFpEF, CAD s/p CABG, HTN, HLD, Prediabetes, chronic pain, right shoulder pain, anxiety, GERD, anemia Rehab Plan: Minimum of 180 minutes of therapy 5 out of 7 days per week as follows: 60 minutes of PT daily for 5 days. 60 minutes of OT daily for 5 days. 60 minutes of APARTMENT LEASING AGENT daily for 5 days. Anticipated Functional Outcomes/Rehab Goals: Goals are for the patient to achieve the highest level of function and independence to allow the patient to return home. The patient and the family will be provided education on the patient's condition, the patient's current barriers, and the goals to overcome or to compensate for barriers. * Juliann Man DO - 10/26/2024 5:05 PM EST Images from the original note were not included. [facility] Daily Progress Note Patient name: Estephania Bill : 1960 SUBJECTIVE: Patient seen and examined at bedside today. No acute events overnight. Denies headaches, dizziness,shortness of breath, chest pain, nausea, constipation. Report right shoulder pain with range of motion and at rest. Denies similar pain in past. Denies any recent injury. Participating in therapies: Supervision for wheelchair mobility from room to therapy gym. Completion 1x30ft ambulation with RW with partial A and wheelchair follow. OBJECTIVE: Vitals: 10/26/24 1139 10/26/24 1150 10/26/24 1204 10/26/24 1621 BP: 104/60 121/88 121/88 94/61 BP Location: Right arm;Upper Patient Position: Lying Pulse: 71 Resp: 18 Temp: 36.8 ??C (98.2 ??F) TempSrc: SpO2: 100% 98% Weight: Physical Examination: General: Alert, in no acute cardiopulmonary distress. Mental Status: Oriented to person, place and time. Normal affect. Head: Normocephalic. Eyes: Pupils are equal, round and reactive to light. Extraocular muscles intact. Ear, Nose and Throat: Oropharynx clear, mucous membranes moist. Ears and nose without masses, lesions or deformities. Neck: Supple, Trachea midline. Respiratory: Clear to auscultation and percussion. No wheezing, rales or rhonchi. Cardiovascular: Heart sounds normal. No thrills. Regular rate and rhythm, no murmurs, rubs or gallops. Gastrointestinal: Abdomen soft, non-tender, non-distended. Normal bowel sounds. Genitourinary: No costovertebral angle tenderness. Neurologic: Cranial nerves II-XII intact. Deep tendon reflexes +2 bilaterally. Negative Hoffmans sign bilaterally. Flexor plantar response bilaterally. Negative clonus bilaterally. Moves all extremities spontaneously. Sensation intact bilaterally. Skin: No rashes or lesions. No petechiae or purpura. No edema. Musculoskeletal: No cyanosis or clubbing. No gross deformities. Right shoulder AROM limited by pain. Strength 5/5 throughout right upper and lower extremities. Strength 4+/5 throughout left upper andlower extremities. CURRENT INPATIENT MEDICATIONS: Current Facility-Administered Medications: acetaminophen (TYLENOL) tablet 1,000 mg, 1,000 mg, oral, q8h PRN, [facility] [place], 1,000 mg at 10/26/24 1119 albuterol 2.5 mg /3 mL (0.083 %) nebulizer solution 2.5 mg, 2.5 mg, nebulization, q6h PRN, [facility] Maria aspirin chewable tablet 81 mg, 81 mg, oral, Daily, [facility] [place], 81 mg at 10/26/24 0943 atorvastatin (LIPITOR) tablet 40 mg, 40 mg, oral, Nightly, [facility] [place], 40 mg at 10/25/242034 budesonide (PULMICORT) 1 mg/2 mL nebulizer solution 0.5 mg, 0.5 mg, nebulization, Daily, 0.5 mg at 10/26/24 0944 AND formoterol (PERFOROMIST) 20 mcg/2 mL nebulizer solution 20 mcg, 20 mcg, nebulization, BID, [facility] [place], 20 mcg at 10/26/24 0945 carvediloL (COREG) tablet 12.5 mg, 12.5 mg, oral, BID with meals, UMA Saez clopidogreL (PLAVIX) tablet 75 mg, 75 mg, oral, Daily, [facility] [place], 75 mg at 10/26/24 0937 dextrose (D50W) 50% injection 12.5 g, 12.5 g, intravenous, q15 min PRN, [facility] [place] dextrose (D50W) 50% injection 25 g, 25 g, intravenous, q15 min PRN, [facility] [place] dextrose 15 gram/60 mL oral solution 15 g, 15 g, oral, q15 min PRN, [facility] [place] dextrose 15 gram/60 mL oral solution 30 g, 30 g, oral, q15 min PRN, [facility] [place] docusate sodium (COLACE) capsule 100 mg, 100 mg, oral, BID, [facility] [place], 100 mg at 937 DULoxetine (CYMBALTA) DR capsule 60 mg, 60 mg, oral, Daily, [facility] [place], 60 mg at 10/26/24 0943 ferrous sulfate tablet 325 mg, 325 mg, oral, Daily, [facility] [place], 325 mg at 10/26/24 0937 gabapentin (NEURONTIN) capsule 800 mg, 800 mg, oral, q8h, [facility] [place], 800 mg at 10/26/24 0938 Glucagon HCl (rDNA) injection 1 mg, 1 mg, intramuscular, Once PRN, [facility] [place] insulin lispro injection 2-12 Units, 2-12 Units, subcutaneous, TID AC, [facility] [place] lidocaine 4 % patch 1 patch, 1 patch, Topical, Daily, Juliann Man DO, 1 patch at 10/26/24 1319 oxyCODONE (ROXICODONE) immediate release tablet 2.5 mg, 2.5 mg, oral, q4h PRN, Juliann Man DO, 2.5 mg at 10/26/24 1618 pantoprazole (PROTONIX) EC tablet 40 mg, 40 mg, oral, q AM ACGhazal PA sacubitriL-valsartan (ENTRESTO) 24-26 mg per tablet 1 tablet, 1 tablet, oral, BID, UMA Saez, 1 tablet at 10/26/24 1204 traZODone (DESYREL) tablet 150 mg, 150 mg, oral, Nightly, [facility] [place], 150 mg at 10/25/242034 LABS: Lab Results Component Value Date WBC 5.4 10/26/2024 RBC 5.10 (H) 10/26/2024 HGB 12.2 10/26/2024 HCT 39.8 10/26/2024 MCV 78.7 (L) 10/26/2024 MCHC 30.7 (L) 10/26/2024 RDW 15.7 (H) 10/26/2024 PLT 253 10/26/2024 MPV 11.0 10/26/2024 NRBC 0.0 10/26/2024 DIFF Lab Results Component Value Date LYMPHOPCT 49.4 10/26/2024 NEUTROABS 1.69 10/26/2024 LYMPHSABS 2.66 10/26/2024 MONOABS 0.58 10/26/2024 EOSABS 0.42 10/26/2024 BASOSABS 0.02 10/26/2024 IMMGRANABS 0.01 10/26/2024 RETIC No results found for: RETIC , RETICCTPCT Lab Results Component Value Date NA 137 10/26/2024 K 3.7 10/26/2024 CL 105 10/26/2024 CO2 27 10/26/2024 GLUCOSE 88 10/26/2024 BUN 15 10/26/2024 CREATININE 0.92 10/26/2024 CALCIUM 9.6 10/26/2024 PROT 7.2 10/26/2024 ALBUMIN 3.7 10/26/2024 BILITOT 0.4 10/26/2024 AST 14 10/26/2024 ALT 13 10/26/2024 ALKPHOS 82 10/26/2024 EGFR 70 10/26/2024 IMPRESSION & PLAN: #Impaired mobility and self-care -Secondary to acute CVA -Continue PT, OT, APARTMENT LEASING AGENT, and nursing care #Acute CVA #Left Hemiparesis -s/p TNK 10/19/2024 -Aspirin 81 mg daily -Plavix 75 mg daily -Atorvastatin 40 mg nightly -continue therapies -Follow up with neurology stroke clinic after DC #HFpEF #CAD s/p CABG in 2019 #Hypertension -Entresto 97-103 mg 1 tab BID --> decreased to 24-26mg 1 tab BID on 10/26 due to hypotension -Carvedilol 25 mg BID w/ meals --> decreased to 12.5mg BID w/meals on 10/26 due to hypotension #Hyperlipidemia -Atorvastatin 40 mg nightly #Prediabetes -A1C 6.1 on 10/26 -Diabetic diet -Sliding scale w/POCs #Chronic Pain #Pain management -Duloxetine 60mg daily -Gabapentin 800 mg Q8H -Acetaminophen 100 mg Q8H PRN pain #Right shoulder pain -Xray right shoulder 10/26 negative -Lidocaine patch daily -heat/ice PRN -Oxycodone 2.5mg Q4H PRN #Anxiety -Trazodone 150 mg nightly #GERD -Pantoprazole 40mg daily #Anemia -Ferrous sulfate 325mg daily #Bowel management -Colace 100mg BID DVTP: Aspirin 81 mg po daily and Plavix 75 mg po daily w/ compression device * Carol Martínez RN - 10/26/2024 4:42 PM EST 15:[address] Man that pt requested something for right shoulder pain, current;y Lidocaine patch on right anterior shoulder, pt appreciated warm compress to shoulder but would like medication for the pain. Patient had received prn Oxycodone at [facility] for right shoulder discomfort pr pt reprot. Orders received for Oxycodone 2.5 mg po q4 hours prn pain to right shoulder. X-ray of right shoulder completed and results messaged to Dr. Man. INDICATION: Shoulder pain FINDINGS: Minimum of 2 views of the right shoulder were obtained. No prior studies available for comparison. No fracture or dislocation. No radiopaque foreign body or periosteal reaction is noted. No significant soft tissue abnormality. Mild degenerative changes. IMPRESSION: No shoulder fracture or dislocation. [id number] -------- FINAL REPORT -------- Dictated By: Dell Abraham Dictated Date: 10/26/2024 14:24 ET Assigned Physician: Dell Abraham Reviewed and Electronically Signed By: Dell Abraham Signed Date: 10/26/2024 14:25 ET Workstation ID: [id number] Transcribed By: Self Edit Transcribed Date: 10/26/2024 14:24 ET Result Histo * Lyudmila oYunger, APARTMENT LEASING AGENT - 10/26/2024 3:00 PM EST Speech Language Pathology Speech Language Pathology Evaluation Subjective APARTMENT LEASING AGENT Start Time: 1500 APARTMENT LEASING AGENT Stop Time: 1545 APARTMENT LEASING AGENT Time Calculation (min): 45 min Subjective: Pt reporting 9/10 pain in shoulder. RN aware. Requesting to complete initial evaluationtomorrow. Agreeable to limited/informal assessment tasks. PREMORBID STATUS: Pt lives alone. Reports sister assists with med and finance management. Does not drive. Did not work. Highest level of education is 10th grade. Wears reading glasses. Denies PECHANGA. Reports occasional disfluencies since first stroke, specifically repetitions. Pt demonstrated partial word repetitions x1 during interview questions. Reports baseline mild STM deficits. Reports baselinediet is regular/thin. Pt did not see ST after first stroke. Since this hospitalization, Pt reporting globus sensation x1 last night when swallowing saliva. Denies sensation at this time. Pt denies any changes to cognition/language/speech since this hospitalization. Reports increased disfluencies. Patient Active Problem List Diagnosis Stroke ([facility]/HCC) Diabetes ([facility]) CVA (cerebral vascular accident) ([facility]) No past medical history on file. No past surgical history on file. Vitals/Pain Oxygen Therapy Oxygen Therapy: None (Room air) Pain Assessment Pain Assessment: 0-10 Pain Score: 9 Pain Location: Shoulder Objective General Visit Info General Amount of Missed Time (min): 15 Minutes Missed Therapy Session Reason: Pain Family/Caregiver Present: No Precautions Precautions Medical Precautions: Fall Risk Safety Interventions: Call bryson within reach Oral/Motor/Speech Oral/Motor/Speech Labial ROM: Within Functional Limits Labial Symmetry: Within Functional Limits Lingual Appearance: [address] Lingual ROM: Within Functional Limits Lingual Symmetry: Within Functional Limits Mandible: Within Functional Limits Facial Symmetry: Within Functional Limits Vocal Quality: Within Functional Limits Intelligibility: Intelligible 100% Dentition: Dentures top, Adequate Hearing: Within Functional Limits Tracheostomy/Ventilator No Swallow Assessment Dysphagia Risk Factors: Stroke symptoms, Patient complained of swallowing difficulty Dysphagia Comments: Pt reports globus sensation last night. RN reports increased difficulty swallowing pills. Pt currently taking pills in puree. Baseline Assessment Respiratory Status: Room air Behavior/Cognition: Alert, Other (Comment) (Required mod coaxing to participate in eval d/t shoulder pain.) Dentition: Dentures top, Adequate Patient Positioning: Upright in bed Baseline Vocal Quality: Within Functional Limits Volitional Swallow: Within Functional Limits Swallow Consistencies Assessed Thin Presentation: Cup, Self Fed Oral: Within functional limits Pharyngeal: Within Functional Limits Amount: x5 cup sips Puree Presentation: Self Fed, Spoon Oral: Within functional limits Pharyngeal: Within Functional Limits Amount: x5 spoonfuls Solid/Regular Presentation: Bite, Self Fed Oral: Impaired Mastication, Oral residue (Oral residue on posterior lingual surface, cleared with liquid wash. Increased mastication time but functional oral prep.) Pharyngeal: Within Functional Limits Amount: 1 saltine cracker Comments: Pt reports regular/thin at baseline. Denies globus sensation with regular solids. Aspiration Risk Aspiration Risk Risk for Aspiration: None Diet Solids Recommendation: IDDSI Level 7 Regular Diet Liquids Recommendation: Thin liquids Liquid Administration Via: Cup Compensatory Swallowing Strategies: Upright as possible for all oral intake, Remain upright for 20-30 minutes after meals, Alternate solids and liquids, Small bites/sips, Slow rate of intake Recommended Medication Route: PO Recommended Medication Administration: Other (Comment) (in puree) Cognition Cognition Overall Cognitive Status: Impaired Arousal/Alertness: Appropriate responses to stimuli Orientation Level: Oriented X4 Following Commands: Follows one step commands without difficulty (Increased difficulty following multi step commands.) Awareness of Errors: Decreased awareness of errors Cognition Comments: Informal assessment completed today d/t Pt's pain/reduced participation. Will need formal assessment tomorrow. Comprehension Did not test. Expression Verbal Expression Primary Mode of Expression: Verbal Primary Language: Polish Generative Naming: Impaired Generative Naming Comments: Pt able to name 7 boy names from BCAT in 1 minute. Eye Contact: Within Functional Limits Topic Maintenance: Within Functional Limits Turn Taking: Within Functional Limits Additional Assessments/Tests APARTMENT LEASING AGENT Additional Assessments/Tests Additional Assessment/Test #1: Informal assessment Administered selected subtests of Sushant Battery with the following results: ORIENTATON: Person/Place/Time/Situation: / ATTENTION: Sustained: WFL during conversation. Selective attention: Largest Number recall 5/5 Unable to spell 'world' backwards. MEMORY: Impaired Immediate/Short-Term: 3 Word Recall - immediate 2/3 3 Word Recall-5 min delay 1/3, increasing to 2/3 with category cues, increasing to 3/3 with multiple choice cues. Immediate/Working Memory: Impaired 2-3 Step Commands: 0/3 Divergent categorization: Impaired Pt named 7 boy names from BCAT in 1 minute. Norms: X > 15 = WFL Convergent Categorization: 3/4 PROBLEM-SOLVING/REASONING: Impaired Hypothetical situations: 11/22 Assessment/Plan APARTMENT LEASING AGENT Assessment APARTMENT LEASING AGENT Assessment Results: Cognitive impairments, Expression deficits Dysphagia Diagnosis: Within Functional Limits Prognosis: Good Evaluation/Treatment Tolerance: Patient limited by pain Comments: Pt required mod amount of coaxing to participate in eval d/t pain in shoulder. Limited completed d/t pain. Medical Staff Made Aware: Yes Comments: RN aware of 9/10 shoulder pain. Pt presents with cognitive linguistic deficits as demonstrated with informal assessment today. Unable to determine severity of deficits d/t limited participation d/t Pt pain. Pt demonstrating deficits with immediate/delayed recall, working memory, divergent categorization and problem solving/reasoning. Strengths include orientation and sustained attention. At bedside, Pt's swallow WFL. Min oral residue and increased mastication time noted with regular solids, but functional oral prep. Pt reports globus sensation x1 last night but denied with all PO trials at the time of this evaluation. Pt currently takes meds in puree and reports preference for this. Recommend Pt continue regular/thin. Vocal quality and speech presenting as WFL. Pt reporting baseline disfluencies from first stroke which have increased since this hospitalization. Pt demonstrated x1 instance of dysfluency during eval, specifically repetition. Recommend further assessment of fluency, cognition and language to further refine goals/deficits and determine severity of deficits. Provided education to Pt re: cognitive linguistic changes after stroke and role of ST. Plan Treatment/Interventions: Cognitive linguistic functioning APARTMENT LEASING AGENT Plan: Skilled APARTMENT LEASING AGENT APARTMENT LEASING AGENT Frequency: 5-7 days per week APARTMENT LEASING AGENT Duration of Sessions: 30-60 min per session APARTMENT LEASING AGENT Treatments per day: 1 time per day APARTMENT LEASING AGENT - Evaluation Status: Complete APARTMENT LEASING AGENT Discharge Recommendations: (TBD) Diet Recommendations: Regular/thin APARTMENT LEASING AGENT - Next Appointment: 10/27/24 Goals Encounter Problems Encounter Problems (Active) Template: Speech Therapy Problem: APARTMENT LEASING AGENT Varnishing Unit Tool Setter Goals Dates: Start: 10/26/24 Goal: Pt will improve cognitive linguistic skills for d/c setting. Dates: Start: 10/26/24 Expected End: 11/05/24 Problem: APARTMENT LEASING AGENT Short Term Goals Dates: Start: 10/26/24 Goal: Pt will participate in additional cognitive/language/speech assessment. Dates: Start: 10/26/24 Expected End: 11/02/24 Goal: Pt will complete convergent/divergent categorization tasks at 90% accuracy given min A. Dates: Start: 10/26/24 Expected End: 11/02/24 Encounter Problems (Resolved) There are no resolved problems. * BENEDICT Hines - 10/26/2024 2:30 PM EST Estephania Bill was unable to complete her planned Speech Therapy session with BENEDICT Hines on 10/26/2024 due to being off unit for testing/procedure. Next treatment attempt will be Later today for additional attempt. * Jarret Bullock OT - 10/26/2024 10:00 AM EST [facility] Occupational Therapy Evaluation Note 10/26/24 Patient: Estephania Bill : 1960 Age: 63 y.o. Gender: female Primary Language: Polish Diagnosis: No Principal Problem: There is no principal problem currently on the Problem List. Please update the Problem List and refresh. Please refer to EMR for further information Primary Rehab (Etiologic) Diagnosis: Patient Active Problem List Diagnosis Stroke (CMS/HCC) Diabetes (CMS/HCC) CVA (cerebral vascular accident) (CMS/HCC) PMH: No past medical history on file. PSH: No past surgical history on file. Refer to EMR for further information. Allergies: has No Known Allergies. Precautions: Precautions Medical Precautions: Fall Risk Safety Interventions: Call bryson within reach, ID band on, Bed alarm, Chair alarm RUE Weight Bearing Status: Full LUE Weight Bearing Status: Full RLE Weight Bearing Status: Full LLE Weight Bearing Status: Full NURSING RECOMMENDATIONS ADL Comments: Pt in elevated supine upon arrival, agreeable to session, reporting fatigue. Supine>sit EOB withS. Seated EOB pt participated in Sponge bathing. Pt doffed efren and bathed UB with S, with use ofB Ues. Pt donned efren with S. STS from bed with cues for UE placement. Steadying A. In stand pt hiked pants down, performed ninoska and buttock hygiene, and the hiked pants back up, with steadying A. BP re assessed, 130/82, HR 69. SPT from bed>w/c at RW with partial A for more than steadying, with verbal cues for hand placement, slight ataxia noted. W/c level pt performed oral hygiene and combed with with S. Pt changed socks with S, able to reach via figure four. Pt requesting to return to bed post ADL and assessment aspects. SPT at RW steadying A toward bed, improved carryover of hand placement. Sit>Supine S. Bed alarm on and call bryson in reach. Pt provided visual demo on L hand strengthening via simulating wringing out washcloth X mass reps. SUBJECTIVE Patient Subjective: I do get dizzy at home Home Living: Type of Home: Apartment Lives With: Alone (with dog. son assists with dog walking.) Home Adaptive Equipment: (pt has a walker and a cane. pt was using a cane for all mobility around house. Pt was using walker outside of house.) Home Living Comments: (no stairs inside appartment) Home Layout: One level (first floor) Home Access: (threshold to enter.) Bathroom Shower/Tub: Tub/shower unit Bathroom Toilet: Standard Bathroom Equipment: Shower chair with back Prior Level of Function: Level of Sedan: Independent with mobility and functional transfers Ambulation Status: Household ambulator Receives Help From: Family (sister and son. sometimes son stays at night. (pt reports that dizziness often impacts her at night) (vertigo).) Indoor Mobility Assistance: Independent Stairs Assistance : Independent Prior Device Use: Cane, Walker Do you drive?: No Mode of Transportation: Car Leisure: Be outside, play bingo Which is your dominant hand?: Right ADL/IADL History: ADL Assistance (Self Care): Needed Some Help Bathing: Needed Some Help Dressing: Independent Grooming: Independent Eating: Independent Toileting: Independent Homemaking Assistance (Functional Cognition): Needed Some Help (pt would make list for sister, who would [employer] shop for her.) Meal Prep Responsibility: (occasional assist from sister dep on ftigue level.) Laundry Responsibility: No Laundry: (sister performs) Medication Management: Independent (pt reports that she had an appointment with [employer] cneter for implementing a pill box, however missed appointment due to being in hospital.) Leisure and Hobbies: (Bingo, pt reports that fatigue is often limiting.) Understanding of Current Condition: Understands OBJECTIVE General Observation: pt pleasant and agreeable throughout, despite fatigue. Cognition/Communication: appears WFL, pt does note baseline memory deficits. Vitals: BP: 104/67 Heart Rate: 60 Pain: Pain Assessment: 0-10 Pain Score: 8 Pain Location: (R shoulder, and headache) RN notified Skin: Skin appears intact, scattered bruising on B Ues, Please refer to RN skin assessment for further details. FUNCTIONAL ASSESSMENTS ADL ASSIST Eating Assistance Needed: Set-up / clean-up Oral Hygiene Oral Hygiene Assistance Needed: Set-up / clean-up CARE Score - Oral Hygiene: 5 Toileting Toileting Hygiene Assistance Needed: Physical assistance Physical Assistance Level: 25% or less Comment: partial A for more than steadying CARE Score - Toileting Hygiene: 3 Bathing Shower/Bathe Self Assistance Needed: Physical assistance Physical Assistance Level: 25% or less CARE Score - Shower/Bathe Self: 3 UE Dressing Upper Body Dressing Assistance Needed: Supervision CARE Score - Upper Body Dressin LE Dressing Lower Body Dressing Assistance Needed: Incidental touching Comment: steadying CARE Score - Lower Body Dressin Footwear Putting On/Taking Off Footwear Assistance Needed: Supervision CARE Score - Putting On/Taking Off Footwear: 4 Toilet Transfer Tub/Shower Transfer Equipment Provided: TBD Vision: Vision - Complex Assessment Tracking: Able to track stimulus in all quads without difficulty Saccades: (WFL, blinking throughout.) Perception: Perception Inattention/Neglect: Appears intact Proprioception: Proprioception Proprioception: No apparent deficits Sensation: Sensation Sensation Comments: (pt reports that feet or fingers have numbness/tingling.) Hand Function: L hand weaker than R hand, however is functional. Coordination: B UE opposition and finger to nose intact. Balance: Static sitting balance Static Sitting Balance Static Sitting-Level of Assistance: Supervision or touching assistance Dynamic sitting balance Dynamic Sitting Balance Dynamic Sitting-Level of Assistance: Supervision or touching assistance Static standing balance Static Standing Balance Static Standing-Level of Assistance: Supervision or touching assistance Dynamic standing balance Dynamic Standing Balance Dynamic Standing-Level of Assistance: Partial/moderate assistance UPPER EXTREMITY ASSESSMENTS RUE Assessment RUE Assessment: Within Functional Limits RUE Strength R Shoulder Flexion: 4-/5 R Shoulder ABduction: 4-/5 R Elbow Flexion: 4-/5 R Elbow Extension: 4-/5 R Wrist Flexion: 4-/5 R Wrist Extension: 4-/5 LUE Assessment LUE Assessment: Within Functional Limits LUE Assessment Comments: (slighlty weaker than R UE) LUE Strength L Shoulder Flexion: 3+/5 L Shoulder ABduction: 3+/5 L Elbow Flexion: 4-/5 L Elbow Extension: 4-/5 L Wrist Extension: 3+/5 L Wrist Radial Deviation: 3+/5 STANDARDIZED TESTS Right Hand Strength - Storage Management Consultant (lbs) Handle Setting 2: 37 lbs Right Hand Strength - Pinch (lbs) Lateral: 11.5 lbs Tip (2 point): 6.5 lbs Three Jaw Endy: 7 lbs Left Hand Strength - Storage Management Consultant (lbs) Handle Setting 2: 10 lbs Left Hand Strength - Pinch (lbs) Lateral: 4 lbs Tip (2 point): 3 lbs Three Jaw Enyd: 3.5 lbs 9 Hole Peg Test (seconds) Right - 9 Hole Peg Test (seconds): 26 seconds Left - 9 Hole Peg Test (seconds): 40 seconds Quality Indicators Scoring CAM Scoring Admit: Is there evidence of an acute change in mental status from the patient's baseline?: No (10/26/24 1000 : Jarret Bullock, JOVITA) Inattention: Behavior not present (10/26/24 1000 : Jarret Bullock OT) Disorganized thinking: Behavior not present (10/26/24 1000 : Jarret Bullock OT) Altered level of consciousness: Behavior not present (10/26/24 1000 : Jarret Bullock, OT) BIMS: 13 (10/26/24 1000 : Jarret Bullock, OT) Hearing, Speech, and Vision: Hearing, Speech, and Vision Ability to Hear: Adequate Ability to See in Adequate Light: Adequate Expression of Ideas and Wants: Some difficulty Understanding Verbal and Non-Verbal Content: Usually understands Health Literacy: Health Literacy How often do you need to have someone help you when you read instructions, pamphlets, or other written material from your doctor or pharmacy?: Sometimes OT Assessment: OT Assessment OT Assessment Results: Decreased ADL status, Decreased upper extremity strength, Decreased endurance, Decreased fine motor control, Decreased functional mobility, Decreased IADLs (imapired balance.) Prognosis: Good Evaluation/Treatment Tolerance: Patient tolerated treatment well, Patient limited by fatigue Medical Staff Made Aware: (Aware of pain.) OT Plan: Plan Treatment Interventions: ADL retraining, Functional transfer training, UE strengthening/ROM, Endurance training, Equipment evaluation/education, Neuromuscular reeducation, Fine motor coordination activities OT Plan: Skilled OT OT Frequency : 5-7 days per week OT Duration of Sessions: 60-90 min per session OT Treatments per day: 1 time per day OT - Evaluation Status: Complete LTG made for 2 weeks. Goals: Encounter Problems Encounter Problems (Active) Template: Occupational Therapy Problem: OT Varnishing Unit Tool Setter Goals Dates: Start: 10/26/24 Goal: Mod I LB dressing Dates: Start: 10/26/24 Expected End: 11/09/24 Goal: S bathing in shower, including tub shower txfer. Dates: Start: 10/26/24 Expected End: 11/09/24 Goal: Toileting including txfer with LRAD mod I Dates: Start: 10/26/24 Expected End: 11/09/24 Goal: Pt will perform light meal prep at LRAD with mod I, implementing EC techniques prn Dates: Start: 10/26/24 Expected End: 11/09/24 Goal: pt will perform grooming in stand at sink with mod I Dates: Start: 10/26/24 Expected End: 11/09/24 Goal: Pt will decrease L UE 9 hole peg score by 8 seconds in order to increased INDEPENDENCE with clothing fasteners Dates: Start: 10/26/24 Expected End: 11/09/24 Description: Problem: OT Short Term Goals Dates: Start: 10/26/24 Goal: Pt will perform sponge bathing S level Dates: Start: 10/26/24 Expected End: 11/02/24 Goal: Pt will toilet with S, with LRAD Dates: Start: 10/26/24 Expected End: 11/02/24 Goal: Pt will retrieve clothing from closet RW level with no more than S Dates: Start: 10/26/24 Expected End: 11/02/24 Goal: Pt will perform tub shower txfer with steadying A Dates: Start: 10/26/24 Expected End: 11/02/24 Goal: Pt will recall 5 energy conservation techniques to implement during ADL/IADLs. Dates: Start: 10/26/24 Expected End: 11/02/24 Encounter Problems (Resolved) There are no resolved problems. Education Documentation ADL Training, taught by Jarret Bullock OT at 10/26/2024 11:24 AM. Learner: Patient Readiness: Acceptance Method: Explanation, Demonstration Response: Verbalizes Understanding, Demonstrated Understanding, Needs Reinforcement Home Exercise Program, taught by Jarret Bullock OT at 10/26/2024 11:24 AM. Learner: Patient Readiness: Acceptance Method: Explanation, Demonstration Response: Verbalizes Understanding, Demonstrated Understanding, Needs Reinforcement Body Mechanics, taught by Jarret Bullock OT at 10/26/2024 11:24 AM. Learner: Patient Readiness: Acceptance Method: Explanation, Demonstration Response: Verbalizes Understanding, Demonstrated Understanding, Needs Reinforcement Fall Precautions, taught by Jarret Bullock OT at 10/26/2024 11:24 AM. Learner: Patient Readiness: Acceptance Method: Explanation, Demonstration Response: Verbalizes Understanding, Demonstrated Understanding, Needs Reinforcement Requirements for Being on Rehab Unit, taught by Jarret Bullock OT at 10/26/2024 11:24 AM. Learner: Patient Readiness: Acceptance Method: Explanation, Demonstration Response: Verbalizes Understanding, Demonstrated Understanding, Needs Reinforcement Education Comments No comments found. Start/Stop Time: OT Time Calculation OT Start Time: 1000 OT Stop Time: 1130 OT Time Calculation (min): 90 min Therapy Minutes: Occupational Therapy OT Individual: 90 * Lore Cortes, PT - 10/26/2024 8:00 AM EST [facility] Physical Therapy Evaluation Note 10/26/24 Patient: Estephania Bill : 1960 Age: 63 y.o. Gender: female Primary Language: Polish Diagnosis: CVA HPI: defer to EMR No past medical history on file. No past surgical history on file. Allergies: has No Known Allergies. Precautions: Medical Precautions: Fall Risk Safety Interventions: Call bryson within reach, ID band on, Bed alarm, Chair alarm RUE Weight Bearing Status: Full LUE Weight Bearing Status: Full RLE Weight Bearing Status: Full LLE Weight Bearing Status: Full NURSING RECOMMENDATIONS Bed Mobility: steadying assist bed mobility Transfers: min assist stand pivot transfers with RW Ambulation: no ambulation SUBJECTIVE Prior Level of Function: Level of Sedan: Independent with mobility and functional transfers Ambulation Status: Household ambulator Receives Help From: Family (sister and son. sometimes son stays at night. (pt reports that dizziness often impacts her at night) (vertigo).) Indoor Mobility Assistance: Independent Stairs Assistance : Independent Prior Device Use: Cane, Walker Do you drive?: No Mode of Transportation: Car Leisure: Be outside, play bingo Which is your dominant hand?: Right Understanding of Current Condition: Understands Home Living: Type of Home: Apartment Lives With: Alone (with dog. son assists with dog walking.) Home Adaptive Equipment: (pt has a walker and a cane. pt was using a cane for all mobility around house. Pt was using walker outside of house.) Home Living Comments: (no stairs inside appartment) Home Layout: One level (first floor) Home Access: (threshold to enter.) Bathroom Shower/Tub: Tub/shower unit Bathroom Toilet: Standard Bathroom Equipment: Shower chair with back Pain: Pain Assessment: 0-10 Pain Score: 7 Pain Location: Head (headache) OBJECTIVE General Observation: Pt supine in bed upon arrival to session, agreeable to PT evaluation. Cognition/Communication: Orientation Level: Oriented X4 Vitals: BP: 111/65 Heart Rate: 61 SpO2: 99 % Skin: Defer to nursing for full assessment Sensation: Light Touch: No apparent deficits Proprioception: Proprioception: Partial deficits in the LLE (impaired at great toe, intact at ankle) Coordination: Coordination: Gross motor impaired Coordination and Movement Description: LLE impairment Balance: Static Sitting Balance Static Sitting-Level of Assistance: Supervision or touching assistance Dynamic Sitting Balance Dynamic Sitting-Level of Assistance: Supervision or touching assistance Static Standing Balance Static Standing-Level of Assistance: Supervision or touching assistance Dynamic Standing Balance Dynamic Standing-Level of Assistance: Partial/moderate assistance Strength: Strength RLE R Hip Flexion: 4/5 R Knee Flexion: 4/5 R Knee Extension: 4/5 R Ankle Dorsiflexion: 4/5 R Ankle Plantar Flexion: 4/5 Strength LLE L Hip Flexion: 3+/5 L Knee Flexion: 3/5 L Knee Extension: 3+/5 L Ankle Dorsiflexion: 3+/5 L Ankle Plantar Flexion: 3/5 Range of Motion: BLE ROM WFL QUALITY INDICATORS SCORING: Bed Mobility Roll Left and Right Assistance Needed: Supervision Physical Assistance Level: No physical assistance CARE Score - Roll Left and Right: 4 Sit to Lying Assistance Needed: Supervision Physical Assistance Level: No physical assistance CARE Score - Sit to Lyin Lying to Sitting on Side of Bed Assistance Needed: Incidental touching Physical Assistance Level: No physical assistance CARE Score - Lying to Sitting on Side of Bed: 4 Transfers Sit to Stand Assistance Needed: Incidental touching Physical Assistance Level: No physical assistance CARE Score - Sit to Stand: 4 Chair/[id number] Transfer Assistance Needed: Incidental touching Physical Assistance Level: No physical assistance Comment: RW CARE Score - Chair/[id number] Transfer: 4 Car Transfer Reason if not Attempted: Environmental limitations CARE Score - Car Transfer: 10 Ambulation Walk 10 Feet Assistance Needed: Physical assistance Physical Assistance Level: 25% or less Comment: RW CARE Score - Walk 10 Feet: 3 Walk 50 Feet with Two Turns Reason if not Attempted: Safety concerns CARE Score - Walk 50 Feet with Two Turns: 88 Walk 150 Feet Reason if not Attempted: Safety concerns CARE Score - Walk 150 Feet: 88 Walking 10 Feet on Uneven Surfaces Assistance Needed: Physical assistance Physical Assistance Level: 26%-50% Comment: RW CARE Score - Walking 10 Feet on Uneven Surfaces: 3 Stairs 1 Step (Curb) Assistance Needed: Physical assistance Physical Assistance Level: 26%-50% Comment: Elia handrails CARE Score - 1 Step (Curb): 3 4 Steps Reason if not Attempted: Safety concerns CARE Score - 4 Steps: 88 12 Steps Reason if not Attempted: Safety concerns CARE Score - 12 Steps: 88 Sweatband Cutting Machine Operator Object Picking Up Object Assistance Needed: Physical assistance Physical Assistance Level: 51%-75% CARE Score - Picking Up Object: 2 Wheelchair Uses a Wheelchair/Scooter? Uses a Wheelchair/Scooter?: Yes Wheel 50 Feet with Two Turns Assistance Needed: Supervision Physical Assistance Level: No physical assistance CARE Score - Wheel 50 Feet with Two Turns: 4 Type of Wheelchair/Scooter: Manual Wheel 150 Feet Assistance Needed: Supervision Physical Assistance Level: No physical assistance CARE Score - Wheel 150 Feet: 4 Type of Wheelchair/Scooter: Manual Narrative: Pt supine in bed upon arrival to session, agreeable to PT evaluation. Completion assessment of objective measures including sensation, proprioception, ROM, strength, and motor coordination. Pt donning underwear and pants in supine completing glute bridge to don pants. Pt donning new efren top. Completion rolling to L and R sides with supervision. Completion supine to sitting with steadying assist. Completion stand pivot transfer with RW with steadying assist from edge of bed to wheelchair. L knee with intermittent uncontrolled flexion during stance. Supervision for wheelchair mobility from room to therapy gym. Completion 1x30ft ambulation with RW with partial A and wheelchair follow. Completion 1x30ft ambulation with RW with partial A and no wheelchair follow. Slow pace, small steps, frequent uncontrolled flexion of LLE during stance, self correcting on 90% of trials. Partial A for x10ft ambulation over uneven surface with RW. Completion x1 stair with B handrails, leading with RLE onascent forwards and LLE on descent backwards, partial A. Dependent wheelchair mobility back to room. Completion picking up glove box off ground from standing, maxA. maxA posterior loss of balance back into chair. Stand pivot with steadying assist from wheelchair to edge of bed. Supervision for sit to supine. Bed alarm on, call bryson given, all needs met. PT ASSESSMENT: PT Assessment Results: Decreased strength, Decreased endurance, Impaired balance, Impaired gait, Decreased mobility, Decreased coordination Prognosis: Good Evaluation/Treatment Tolerance: Patient tolerated treatment well Comments: Pt with good tolerance to initial evaluation. Pt with limitations in LLE proprioception, strength, coordination, and functional mobility including ambulation and stairs. At this point in time patient is supervision for rolling and sit to supine, steadying for supine to sit, steadying for sit to stand and transfers with RW, partial A for ambulation x30ft with RW, partial A x1 stair with B handrails, and supervision for wheelchair mobility. Pt will benefit from skilled physical therapy at [facility] in order to decrerase limitations for increased independence for eventual safe discharge. PT PLAN: Treatment/Interventions: Functional transfer training, LE strengthening/ROM, Endurance training, Bed mobility, Equipment eval/education, Patient/family training, Gait training, Continued evaluation, Balance training PT Plan: Skilled PT PT Frequency: 5-7 days per week PT Duration of Sessions: 60-90 min per session PT Discharge Recommendations: (TBD) Equipment Recommended: TBD Pt will benefit from skilled physical therapy 5-7 days per week for 60-90 minutes per session for 2weeks. 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 Goals Dates: Start: 10/26/24 Goal: Thom bed mobility Dates: Start: 10/26/24 Expected End: 11/09/24 Goal: Thom transfers LRAD Dates: Start: 10/26/24 Expected End: 11/09/24 Goal: Thom ambulation x150ft LRAD Dates: Start: 10/26/24 Expected End: 11/09/24 Goal: Thom threshold step with RW Dates: Start: 10/26/24 Expected End: 11/09/24 Goal: Thom wheelchair mobility Dates: Start: 10/26/24 Expected End: 11/09/24 Problem: PT Short Term Goals Dates: Start: 10/26/24 Goal: supervision bed mobility Dates: Start: 10/26/24 Expected End: 11/02/24 Goal: steadying assist transfers LRAD Dates: Start: 10/26/24 Expected End: 11/02/24 Goal: steadying assist ambulation x50ft LRAD Dates: Start: 10/26/24 Expected End: 11/02/24 Goal: threshold step with RW partial A Dates: Start: 10/26/24 Expected End: 11/02/24 Encounter Problems (Resolved) There are no resolved problems. Education Documentation Precautions, taught by Lore Cortes PT at 10/26/2024 9:29 AM. Learner: Patient Readiness: Acceptance Method: Explanation, Demonstration Response: Verbalizes Understanding, Demonstrated Understanding Body Mechanics, taught by Lore Cortes PT at 10/26/2024 9:29 AM. Learner: Patient Readiness: Acceptance Method: Explanation, Demonstration Response: Verbalizes Understanding, Demonstrated Understanding Mobility Training, taught by Lore Cortes PT at 10/26/2024 9:29 AM. Learner: Patient Readiness: Acceptance Method: Explanation, Demonstration Response: Verbalizes Understanding, Demonstrated Understanding Discharge Planning, taught by Lore Cortes PT at 10/26/2024 9:29 AM. Learner: Patient Readiness: Acceptance Method: Explanation, Demonstration Response: Verbalizes Understanding, Demonstrated Understanding Staff Roles, taught by Lore Cortes PT at 10/26/2024 9:29 AM. Learner: Patient Readiness: Acceptance Method: Explanation, Demonstration Response: Verbalizes Understanding, Demonstrated Understanding Program, taught by Lore Cortes PT at 10/26/2024 9:29 AM. Learner: Patient Readiness: Acceptance Method: Explanation, Demonstration Response: Verbalizes Understanding, Demonstrated Understanding Fall Precautions, taught by Lore Cortes PT at 10/26/2024 9:29 AM. Learner: Patient Readiness: Acceptance Method: Explanation, Demonstration Response: Verbalizes Understanding, Demonstrated Understanding Requirements for Being on Rehab Unit, taught by Lore Cortes PT at 10/26/2024 9:29 AM. Learner: Patient Readiness: Acceptance Method: Explanation, Demonstration Response: Verbalizes Understanding, Demonstrated Understanding Orientation to Unit, taught by Lore Cortes PT at 10/26/2024 9:29 AM. Learner: Patient Readiness: Acceptance Method: Explanation, Demonstration Response: Verbalizes Understanding, Demonstrated Understanding Education Comments No comments found. Pt educated on role of physical therapy, 3 hours of therapy per day, fall risk, and use of call bryson. Pt expressing understanding. Session Start/Stop Time: 0800 0930 Therapy Minutes Physical Therapy PT Individual: 90 * Carol Martínez RN - 10/26/2024 7:58 AM EST 07:30 patient awake, alert/orient x 3, HOB up 30 degrees. Pt reported poor sleep last night, PT STATED; I fell asleep around 4 AM . pt denied discomfort, headache, shortness of breath, lightheadedness. Pt PRADO to command. Weight obtained, pt requested toileting. Pt stood to commode, left leg weak but balance steady. Pt assist back to bed briefly, standing weight obtained. Pt returned to bed, Instructed pt on Intake/Output record 1st 3 days of Rehab, encouraged oral hydration, provided pt with fresh water. * June Schmid RN - 10/26/2024 5:27 AM EST Problem: Cognitive: Georges Garfield Fall Risk Goal: Last Known Fall Outcome: Progressing Goal: Mobility requiring assistance of person or device Outcome: Progressing Goal: Dizziness Outcome: Progressing Goal: Medications Outcome: Progressing Goal: Mental Status/LOC/Awareness Outcome: Progressing Goal: Toileting Needs Outcome: Progressing Goal: Volume and Electrolyte Status Outcome: Progressing Goal: Communication/Sensory Outcome: Progressing Goal: Behavior Outcome: Progressing Goals: Identify possible barriers to meeting goals/advancing plan of care: Pt orientating to rehab goals. Stability of the patient: Moderately Unstable - Medium risk of patient condition declining or worsening End of Shift Summary: Pt calm and pleasant overnight, uses the call bryson appropriately to ask for help with needs. Hourly and prn safety checks maintained, no sings of distress noted. * Jerry Cannon LCSW - 10/25/2024 2:43 PM EST Initial Assessment: Met with pt at bedside for initial assessment. Introduced self and CM role. Discussed IRF level of care, team meeting and average LOS. Demographics and PCP confirmed. Pt lives alone with her small dog, [...] appointment. 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 Pt has three adult sons, 2 are local but work time clock mechanic. Pts sister is primary support but also works time clock mechanic. Pt statesher partner lives in [place] and will visit 1- 2x/week. HCP on file. Pt denied ETOH, SA or cigarettes. Pt denied a history of depression. Pt reports a history of anxiety. Pt had no questions or concerns at this time. documented in this encounter H&P Notes * UMA [facility]a - 10/25/2024 3:53 PM EST Images from the original note were not included. PHYSICAL MEDICINE AND REHABILITATION History & Physical Exam Patient Name: Estephania Bill Date of : 1960 Sex: Female Admit Date/Time: 10/25/2024 1:27 PM Chief Complaint: CVA HPI: This is a 63-year-old female past medical history significant for coronary artery disease status post CABG in 2019 on aspirin and Plavix, HFrEF EF 30-35% which improved to 60%, bilateral renal stenosis, hypertension, hyperlipidemia, COPD, anxiety, who presented to [facility] emergency department with intermittent left-sided chest pain [...] origin narrowing vs occlusion). Neurology recommended starting statin.She was downgraded from the NCCU on 10/20 and monitored for a few days and then DC here for debelity s/p CVA for PT/OT/APARTMENT LEASING AGENT and nursing care PAST MEDICAL HISTORY: No past medical history on file. No Known Allergies No past surgical history on file. No family history on file. Social History Socioeconomic History Marital status: Spouse name: Not on file Number of children: Not on file Years of education: Not on file Highest education level: Not on file Occupational History Not on file Tobacco Use Smoking status: Not on file Smokeless tobacco: Not on file Substance and Sexual Activity Alcohol use: Not on file Drug use: Not on file Sexual activity: Not on file Other Topics Concern Not on file Social History Narrative Not on file Functional History: Independent w/ ADLs and uses cane for ambulation before this event REVIEW OF SYSTEMS: Constitutional: No weight loss, fever, chills, weakness or fatigue. HEENT: No visual loss, blurred vision, double vision or yellow sclera. No hearing loss, sneezing, congestion, runny nose or sore throat. Skin: No rash or itching. Cardiovascular: No chest pain, chest pressure or chest discomfort. No palpitations or pedal edema. Respiratory: No shortness of breath, cough or sputum production. Gastrointestinal: No anorexia, nausea, vomiting or diarrhea. No abdominal pain or blood in stool. Genitourinary: No burning micturition. No urinary frequency or incontinence. Neurologic: No headache, dizziness, syncope, unilateral weakness, ataxia, numbness or tingling in the extremities. No change in bowel or bladder control. Musculoskeletal: No muscle pain, back pain, joint pain or stiffness. Hematologic: No bleeding or bruising. Psychiatric: No depression or anxiety. PHYSICAL EXAMINATION: Vitals: 10/25/24 1340 10/25/24 1520 BP: 126/72 (!) 141/77 Pulse: 62 58 Resp: 18 18 Temp: 36.5 ??C (97.7 ??F) 36.9 ??C (98.4 ??F) SpO2: 100% 96% General: Alert, in no acute cardiopulmonary distress. Mental Status: Oriented to person, place and time. Normal affect. Head: Normocephalic. Eyes: Pupils are equal, round and reactive to light. Extraocular muscles intact. Ear, Nose and Throat: Oropharynx clear, mucous membranes moist. Ears and nose without masses, lesions or deformities. Neck: Supple, Trachea midline. Respiratory: Clear to auscultation and percussion. No wheezing, rales or rhonchi. Cardiovascular: Heart sounds normal. No thrills. Regular rate and rhythm, no murmurs, rubs or gallops. Gastrointestinal: Abdomen soft, non-tender, non-distended. Normal bowel sounds. Genitourinary: No costovertebral angle tenderness. Neurologic: Cranial nerves II-XII intact. Deep tendon reflexes +2 bilaterally. Negative Hoffmans sign bilaterally. Flexor plantar response bilaterally. Negative clonus bilaterally. Moves all extremities spontaneously. Sensation intact bilaterally. + LUE and LLE weakness 5-/5. Mild ataxia on left Skin: No rashes or lesions. No petechiae or purpura. No edema. Musculoskeletal: No cyanosis or clubbing. No gross deformities. Normal range of motion. Strength 5/5 throughout all four extremities. HOME MEDICATIONS: Home Medications acetaminophen (TYLENOL) 500 mg tablet Take 2 tablets (1,000 mg total) by mouth every 8 (eight) hours if needed for mild pain. albuterol HFA (PROAIR HFA ; PROVENTIL HFA ; VENTOLIN HFA) 90 mcg/actuation inhaler Inhale 2 puffs by mouth 4 (four) times a day if needed for wheezing. amLODIPine (NORVASC) 10 mg tablet Starting on 10/26/2024. Take 1 tablet (10 mg total) by mouth 1 (one) time each day. aspirin 81 mg chewable tablet Starting on 10/26/2024. Chew 1 tablet (81 mg total) 1 [...] a day. clopidogreL (PLAVIX) 75 mg tablet Starting on 10/26/2024. Take 1 tablet (75 mg total) by mouth 1 (one) time each day. docusate sodium (COLACE) 100 mg capsule Take 1 capsule (100 mg total) by mouth 2 (two) times a day. DULoxetine (CYMBALTA) [address] capsule Starting on 10/26/2024. Take 1 capsule (60 mg total) by mouth 1 (one) time each day. Do not crush or chew. ferrous sulfate 325 mg (65 mg elemental iron) tablet Take 1 tablet (325 mg total) by mouth 1 (one) time each day. gabapentin (NEURONTIN) 800 mg tablet Take 1 tablet (800 mg total) by mouth 3 (three) times a day. pantoprazole (PROTONIX) 40 mg EC tablet Starting on 10/26/2024. Take 1 tablet (40 mg total) by mouth 1 (one) time each day before breakfast. Do not crush, chew, or split. sacubitriL-valsartan (Entresto) 97-103 mg per tablet Take 1 tablet by mouth 2 (two) times a day. traZODone (DESYREL) 150 mg tablet Take 1 tablet (150 mg total) by mouth at bedtime. CURRENT INPATIENT MEDICATIONS: Current Facility-Administered Medications: acetaminophen (TYLENOL) tablet 1,000 mg, 1,000 mg, oral, q8h PRN, [facility] Oron[facility] albuterol 2.5 mg /3 mL (0.083 %) nebulizer solution 2.5 mg, 2.5 mg, nebulization, q6h PRN, [facility]MA Maria [START ON 10/26/2024] amLODIPine (NORVASC) tablet 10 mg, 10 mg, oral, Daily, [facility] [START ON 10/26/2024] aspirin chewable tablet 81 mg, 81 mg, oral, Daily, [facility] atorvastatin (LIPITOR) tablet 40 mg, 40 mg, oral, Nightly, [facility] budesonide (PULMICORT) 1 mg/2 mL nebulizer solution 0.5 mg, 0.5 mg, nebulization, Daily AND formoterol (PERFOROMIST) 20 mcg/2 mL nebulizer solution 20 mcg, 20 mcg, nebulization, BID, [facility] carvediloL (COREG) tablet 25 mg, 25 mg, oral, BID with meals, [facility] [START ON 10/26/2024] clopidogreL (PLAVIX) tablet 75 mg, 75 mg, oral, Daily, [facility] dextrose (D50W) 50% injection 12.5 g, 12.5 g, intravenous, q15 min PRN, [facility] dextrose (D50W) 50% injection 25 g, 25 g, intravenous, q15 min PRN, [facility] dextrose 15 gram/60 mL oral solution 15 g, 15 g, oral, q15 min PRN, [facility] dextrose 15 gram/60 mL oral solution 30 g, 30 g, oral, q15 min PRN, [facility] docusate sodium (COLACE) capsule 100 mg, 100 mg, oral, BID, [facility] [START ON 10/26/2024] DULoxetine (CYMBALTA) DR capsule 60 mg, 60 mg, oral, Daily, [facility] ferrous sulfate tablet 325 mg, 325 mg, oral, Daily, [facility] gabapentin (NEURONTIN) capsule 800 mg, 800 mg, oral, q8h, [facility] Glucagon HCl (rDNA) injection 1 mg, 1 mg, intramuscular, Once PRN, [facility] insulin lispro injection 2-12 Units, 2-12 Units, subcutaneous, TID AC, [facility] [START ON 10/26/2024] pantoprazole (PROTONIX) EC tablet 40 mg, 40 mg, oral, q AM AC, [facility] sacubitriL-valsartan (ENTRESTO) 97-103 mg per tablet 1 tablet, 1 tablet, oral, BID, [facility] traZODone (DESYREL) tablet 150 mg, 150 mg, oral, Nightly, [facility] LABS: No results found for: WBC , RBC , HGB , HCT , MCV , MCHC , RDW , PLT , MPV , NRBC DIFF No results found for: LYMPHOPCT , ATYPLYMPABS , NEUTROABS , LYMPHSABS , MONOABS , EOSABS , BASOSABS , METAMYABS , MYLEOCYABS , PROMYABS , BLASTSABS , PLSMACELABS , OTHRCELLSABS , IMMGRANABS RETIC No results found for: RETIC , RETICCTPCT No results found for: NA , K , CL , CO2 , GLUCOSE , BUN , CREATININE , CALCIUM , PROT , ALBUMIN , BILITOT , AST , ALT , URICACID , PHOS , MG , ALKPHOS , CKTOTAL , EGFR IMPRESSION & PLAN: #Impaired mobility and self-care -Secondary to CVA -Continue PT, OT, APARTMENT LEASING AGENT, and nursing care #CVA - S/P TNK 10/19/2024 -Aspirin 81 mg daily -Plavix 75 mg po daily -Follow up with neurology stroke clinic after DC #Hypertension -Carvedilol 25 mg BID w/ meals #Hyperlipidemia -Atorvastatin 40 mg po nightly #Anemia -Ferrous sulfate 325mg daily #HFPEF -Entresto 97-103 mg BID #Prediabetes -Diabetic diet -Sliding scale w/ POCs -A1C ordered for tomorrow #Chronic Pain #Pain management -Gabapentin 800 mg TID -Acetaminophen 100 mg Q8H PRN pain #Anxiety -trazodone 150 mg nightly #CAD -S/p CABG in 2019 #Bowel management -Monitor DVTP: Aspirin 81 mg po daily and Plavix 75 mg po daily w/ compression device ____ Estephania Bill is being admitted to the inpatient rehab unit in order to participate in an acute rehab program which evokes a multidisciplinary team approach in order to improve their functional mobility and activities of daily living. Physical therapy will be involved in order to provide gait andbalance training, improve strength and range of motion and utilize modalities as deemed necessary. Occupational Therapy will assess and educate with activities of daily living which include bathing dressing toileting and basic household activities. Speech therapy will evaluate speech, cognition, and swallowing and continue to follow as needed for any deficits in these areas. Patient will also be followed by internal medicine 24-hour nursing in order to monitor medical status and provide continuous education regarding medical conditions. Case management will start discharge planning and arrange for team conferences. Rehab goals: Increased functional ability, increased muscle strength and conditioning, progress to self-care andADLs. Educate the patient and the family on disease process and discharge back home into the community. Patient's progress will be discussed in weekly multidisciplinary team conferences along with any barriers which may inhibit patient from returning home safely. Rehab potential/prognosis: Patient has good rehab potential and is well motivated. Patient has family support. Disposition: Weekly multidisciplinary team conferences will be held in order to discuss the patient's progress, barriers, and goals regarding their discharge plan. Goals for the patient include returning home to their prior level of functioning with home services for continued rehab and recovery. Estimated length of stay: 2 weeks ____ Associated attestation - Juliann Man DO - 10/26/2024 12:45 PM EST Patient seen and examined at bedside this morning. No acute events overnight. She reports having right shoulder pain. Agreeable to continuing Tylenol, adding lidocaine patches, and using heat as needed. Will obtain x-rays of the right shoulder for further evaluation. Patient agreeable to therapy program. Agree with H&P as documented by PA. documented in this encounter Plan of Treatment Upcoming Encounters Date Type Department Care Team (Late st Contact Info) Description 11/16/2024 2:30 PM EST Evaluation [address] [phone] Lore Cortes, ROGER 11/23/2024 2:30 PM EST Treatment [address] [phone] Lore Cortes, PT 11/28/2024 12:45 PM EST Treatment [facility] [address] [place] [phone] GrijalvaDeysi, PT 11/30/2024 10:30 AM EST Evaluation [facility] [address] [phone] Alea Trejo, APARTMENT LEASING AGENT 12/07/2024 10:45 AM EST Treatment [facility] [address] [phone] Alea Trejo, APARTMENT LEASING AGENT 12/14/2024 10:45 AM EST Treatment [facility] [address] [place] [phone] Alea Trejo, APARTMENT LEASING AGENT Scheduled Referrals Name Type Priority Associated Diagnoses Order Schedule Ambulatory referral to Physical Therapy and Athletic Training Outpatient Referral Routine Cerebrovascular accident (CVA), unspecified mechanism (CMS/HCC) 1 Occurrences starting 10/31/2024 until 10/31/2025 Ambulatory referral to Speech Therapy Outpatient Referral Routine Cerebrovascular accident (CVA), unspecified mechanism (CMS/HCC) 1 Occurrences starting 10/31/2024 until 10/31/2025 documented as of this encounter Procedures Procedure Name Priority Date/Time Associated Diagnosis Comments ROUTINE EEG Routine 11/07/2024 12:18 PM EST POCT GLUCOSE BLOOD Routine 11/07/2024 7: 18 AM EST POCT GLUCOSE BLOOD Routine 11/06/2024 7: 52 PM EST POCT GLUCOSE BLOOD Routine 11/06/2024 3: 48 PM EST POCT GLUCOSE BLOOD Routine 11/06/2024 11 :17 AM EST POCT GLUCOSE BLOOD Routine 11/06/2024 7: 27 AM EST POCT GLUCOSE BLOOD Routine 11/05/2024 8: 16 PM EST POCT GLUCOSE BLOOD Routine 11/05/2024 3: 50 PM EST POCT GLUCOSE BLOOD Routine 11/05/2024 11 :20 AM EST POCT GLUCOSE BLOOD Routine 11/05/2024 7: 29 AM EST POCT GLUCOSE BLOOD Routine 11/04/2024 8: 06 PM EST POCT GLUCOSE BLOOD Routine 11/04/2024 4: 03 PM EST POCT GLUCOSE BLOOD Routine 11/04/2024 11 :06 AM EST POCT GLUCOSE BLOOD Routine 11/04/2024 7: 32 AM EST PROLACTIN STAT Add-on 11/03/2024 2:02 PM EST MAGNESIUM Add-On 11/03/2024 2:[address] HEAD STROKE WO CONTRAST STAT 11/03/2024 12:40 PM EST ECG 12-LEAD Routine 11/03/2024 12:07 PM EST POCT GLUCOSE BLOOD Routine 11/03/2024 12 :01 PM EST POCT GLUCOSE BLOOD Routine 11/03/2024 11 :05 AM EST POCT GLUCOSE BLOOD Routine 11/03/2024 7: 20 AM EST POCT GLUCOSE BLOOD Routine 11/02/2024 8: 02 PM EST POCT GLUCOSE BLOOD Routine 11/02/2024 4: 03 PM EST POCT GLUCOSE BLOOD Routine 11/02/2024 11 :23 AM EST POCT GLUCOSE BLOOD Routine 11/02/2024 7: 31 AM EST POCT GLUCOSE BLOOD Routine 11/01/2024 4: 26 PM EST POCT GLUCOSE BLOOD Routine 11/01/2024 11 :09 AM EST POCT GLUCOSE BLOOD Routine 11/01/2024 7: 17 AM EST POCT GLUCOSE BLOOD Routine 10/31/2024 7: 52 PM EST POCT GLUCOSE BLOOD Routine 10/31/2024 3: 36 PM EST POCT GLUCOSE BLOOD Routine 10/31/2024 11 :05 AM EST POCT GLUCOSE BLOOD Routine 10/31/2024 7: 18 AM EST POCT GLUCOSE BLOOD Routine 10/30/2024 8: 19 PM EST POCT GLUCOSE BLOOD Routine 10/30/2024 4: 21 PM EST POCT GLUCOSE BLOOD Routine 10/30/2024 11 :16 AM EST POCT GLUCOSE BLOOD Routine 10/30/2024 7: 22 AM EST POCT GLUCOSE BLOOD Routine 10/29/2024 8: 22 PM EST POCT GLUCOSE BLOOD Routine 10/29/2024 4: 17 PM EST POCT GLUCOSE BLOOD Routine 10/29/2024 11 :10 AM EST POCT GLUCOSE BLOOD Routine 10/29/2024 7: 26 AM EST COMPLETE BLOOD COUNT Routine 10/29/2024 6:03 AM EST COMPREHENSIVE METABOLIC PANEL Routine 10/29/2024 6:03 AM EST POCT GLUCOSE BLOOD Routine 10/28/2024 8: 14 PM EST POCT GLUCOSE BLOOD Routine 10/28/2024 4: 02 PM EST POCT GLUCOSE BLOOD Routine 10/28/2024 11 :06 AM EST POCT GLUCOSE BLOOD Routine 10/28/2024 7: 22 AM EST POCT GLUCOSE BLOOD Routine 10/27/2024 8: 00 PM EST POCT GLUCOSE BLOOD Routine 10/27/2024 4: 01 PM EST POCT GLUCOSE BLOOD Routine 10/27/2024 11 :24 AM EST POCT GLUCOSE BLOOD Routine 10/27/2024 7: 27 AM EST POCT GLUCOSE BLOOD Routine 10/26/2024 8: 09 PM EST POCT GLUCOSE BLOOD Routine 10/26/2024 4: 26 PM EST XR SHOULDER 2+ VIEWS RIGHT STAT 10/26/2024 2:22 PM EST POCT GLUCOSE BLOOD Routine 10/26/2024 11 :10 AM EST POCT GLUCOSE BLOOD Routine 10/26/2024 7: 21 AM EST CBC WITH AUTO DIFFERENTIAL Routine 10/26/2024 6:38 AM EST CBC AND DIFFERENTIAL Routine 10/26/2024 6:38 AM EST HEMOGLOBIN A1C Routine 10/26/2024 6:38 AM EST COMPREHENSIVE METABOLIC PANEL Routine 10/26/2024 6:38 AM EST POCT GLUCOSE BLOOD Routine 10/25/2024 8: 31 PM EST POCT GLUCOSE BLOOD Routine 10/25/2024 4: 24 PM EST documented in this encounter Results * Routine EEG (11/07/2024 12:18 PM EST) Narrative Afia Acosta MD - 11/07/2024 3:03 PM EST The waking background activity consists of a moderate voltage 8 to 9 Hz posterior alpha frequency that attenuates well with eye opening while low-voltage fast frequencies predominate anteriorly. Occasional delta transients are seen over both hemispheres. Drowsiness is characterized by diffuse theta slowing. ??During sleep symmetrical frontocentral sleep spindles develop over both hemispheres. ?? Arousals were unremarkable. Impression: This awake and sleep EEG is considered within normal limits Juliann Man DO NEUROLOGY ORDERAB LES * POCT Glucose, blood (11/07/2024 7:18 AM EST) Glucose POCT 96 70 - 100 mg/dL 11/07/2024 7:19 AM EST [facility] Blood Capillary blood specimen / Unknown 11/07/2024 7:18 AM EST 11/07/2024 7:21 AM EST Juliann Man DO LAB POINT OF CARE TEST DOCKED DEVICE UNSOLICITED RESULTS Performing Organization Address City/[facility] Co de Phone Number [facility] [address] [place] [address], * (ABNORMAL) POCT Glucose, blood (11/06/2024 7:52 PM EST) Glucose POCT 120(H) 70 - 100 mg/dL 11/06/2024 7:52 PM EST [facility] Blood Capillary blood specimen / Unknown 11/06/2024 7:52 PM EST 11/06/2024 7:54 PM EST Juliann Man DO LAB POINT OF CARE TEST DOCKED DEVICE UNSOLICITED RESULTS Performing Organization Address [facility] Co de Phone Number [facility] [address] [place] [address], [place] [phone] * POCT Glucose, blood (11/06/2024 3:48 PM EST) Glucose POCT 99 70 - 100 mg/dL 11/06/2024 3:52 PM EST [facility] Blood Capillary blood specimen / Unknown 11/06/2024 3:48 PM EST 11/06/2024 3:53 PM EST Juliann Man DO LAB POINT OF CARE TEST DOCKED DEVICE UNSOLICITED RESULTS Performing Organization Address [facility] Co de Phone Number [facility] [address] [place] [address], [place] [phone] * (ABNORMAL) POCT Glucose, blood (11/06/2024 11:17 AM EST) Glucose POCT 109(H) 70 - 100 mg/dL 11/06/2024 11:21 AM EST [facility] Blood Capillary blood specimen / Unknown 11/06/2024 11:17 AM EST 11/06/2024 11:22 AM EST Juliann Man DO LAB POINT OF CARE TEST DOCKED DEVICE UNSOLICITED RESULTS Performing Organization Address [facility]/ZIP Co de Phone Number [facility] [address] [place] [address], [place] [phone] * POCT Glucose, blood (11/06/2024 7:27 AM EST) Glucose POCT 95 70 - 100 mg/dL 11/06/2024 7:29 AM EST [facility] Blood Capillary blood specimen / Unknown 11/06/2024 7:27 AM EST 11/06/2024 7:30 AM EST Juliann Man DO LAB POINT OF CARE TEST DOCKED DEVICE UNSOLICITED RESULTS Performing Organization Address [facility]/ZIP Co de Phone Number [facility] [address] [place] [address], [place] [phone] * POCT Glucose, blood (11/05/2024 8:16 PM EST) Glucose POCT 99 70 - 100 mg/dL 11/05/2024 8:17 PM EST [facility] Blood Capillary blood specimen / Unknown 11/05/2024 8:16 PM EST 11/05/2024 8:18 PM EST Juliann Man LAB POINT OF CARE TEST DOCKED DEVICE UNSOLICITED RESULTS Performing Organization Address [facility] de Phone Number [facility] [address] [place] [address], [place] [phone] * (ABNORMAL) POCT Glucose, blood (11/05/2024 3:50 PM EST) Glucose POCT 105(H) 70 - 100 mg/dL 11/05/2024 3:52 PM EST [facility] Blood Capillary blood specimen / Unknown 11/05/2024 3:50 PM EST 11/05/2024 3:53 PM EST Juliann Man DO LAB POINT OF CARE TEST DOCKED DEVICE UNSOLICITED RESULTS Performing Organization Address [facility] Co de Phone Number [facility] [address] [place] [address], [place] [phone] * POCT Glucose, blood (11/05/2024 11:20 AM EST) Glucose POCT 97 70 - 100 mg/dL 11/05/2024 11:21 AM EST [facility] Blood Capillary blood specimen / Unknown 11/05/2024 11:20 AM EST 11/05/2024 11:23 AM EST Juliann Man DO LAB POINT OF CARE TEST DOCKED DEVICE UNSOLICITED RESULTS Performing Organization Address [facility]/ZIP Co de Phone Number [facility] [address] [place] [address], [place] [phone] * POCT Glucose, blood (11/05/2024 7:29 AM EST) Glucose POCT 94 70 - 100 mg/dL 11/05/2024 7:33 AM EST [facility] Blood Capillary blood specimen / Unknown 11/05/2024 7:29 AM EST 11/05/2024 7:34 AM EST Juliann Kimmie Donovan LAB POINT OF CARE TEST DOCKED DEVICE UNSOLICITED RESULTS Performing Organization Address [facility] de Phone Number [facility] [address] [place] [address], [place] [phone] * (ABNORMAL) POCT Glucose, blood (11/04/2024 8:06 PM EST) Glucose POCT 130(H) 70 - 100 mg/dL 11/04/2024 8:07 PM EST [facility] Blood Capillary blood specimen / Unknown 11/04/2024 8:06 PM EST 11/04/2024 8:08 PM EST Juliann Man [employer] LAB POINT OF CARE TEST DOCKED DEVICE UNSOLICITED RESULTS Performing Organization Address [facility] Co de Phone Number [facility] [address] [place] [address], [place] [phone] * POCT Glucose, blood (11/04/2024 4:03 PM EST) Glucose POCT 84 70 - 100 mg/dL 11/04/2024 4:05 PM EST [facility] Blood Capillary blood specimen / Unknown 11/04/2024 4:03 PM EST 11/04/2024 4:06 PM EST Juliann Man DO LAB POINT OF CARE TEST DOCKED DEVICE UNSOLICITED RESULTS [facility] [address] [place] [address], [place] [phone] * POCT Glucose, blood (11/04/2024 11:06 AM EST) Glucose POCT 92 70 - 100 mg/dL 11/04/2024 11:07 AM EST [facility] Blood Capillary blood specimen / Unknown 11/04/2024 11:06 AM EST 11/04/2024 11:08 AM EST Juliann Man DO LAB POINT OF CARE TEST DOCKED DEVICE UNSOLICITED RESULTS Performing Organization Address City/[facility]/ZIP Co de Phone Number [facility] [address] [place] [address], [place] [phone] * POCT Glucose, blood (11/04/2024 7:32 AM EST) Glucose POCT 78 70 - 100 mg/dL 11/04/2024 7:34 AM EST [facility] Blood Capillary blood specimen / Unknown 11/04/2024 7:32 AM EST 11/04/2024 7:35 AM EST Juliann Elizaldeese DO LAB POINT OF CARE TEST DOCKED DEVICE UNSOLICITED RESULTS [facility] [address] [place] [address], [place] [phone] * Magnesium (11/03/2024 2:02 PM EST) [facility] Magnesium 1.9 1.9 - 2.6 mg/dL LAB CHEMISTRY METHOD 11/04/2024 12:59 PM EST [facility] Blood Venous blood specimen / Unknown Venipuncture / Unknown 11/03/2024 2:02 PM EST 11/03/2024 2:10 PM EST Dafne EATON LAB BLOOD ORDERABLES Performing Organization Address [facility] de Phone Number [facility] [address] [place] [address], * Prolactin (11/03/2024 2:02 PM EST) [facility] Prolactin 7.40 See Comment ng/mL LAB CHEMISTRY METHOD 11/04/2024 1:00 PM EST [facility] Comment: Prolactin Reference Ranges (ng/mL) ??Non ?2.2 - ??30.3 ? 8.1 - 347.6 ??Postmenopausal 0.7 - ??31.5 Blood Venous blood specimen / Unknown Venipuncture / Unknown 11/03/2024 2:02 PM EST 11/03/2024 2:10 PM EST Dafne EATON LAB BLOOD ORDERABLES Performing Organization Address [facility] Co de Phone Number [facility] [address] [place] [address], * CT Head Stroke wo Contrast (11/03/2024 12:40 PM EST) Anatomical Region Laterality Modality Head and Neck Computed Tomogra phy 11/03/2024 1:35 PM EST Impressions 11/03/2024 1:38 PM EST No evidence of acute intracranial process on noncontrast head CT. A Critical Document Only message has been documented for the office of DAFNE BECK in the [employer] My Name Findings ??system on 11/03/2024 1:38 PM, Message ID [id number]. -------- FINAL REPORT -------- Dictated By: Dell Abraham Dictated Date: 11/03/2024 13:35 ET Assigned Physician: Dell Abraham Reviewed and Electronically Signed By: Dell Abraham Signed Date: 11/03/2024 13:38 ET Workstation ID: [id number] Transcribed By: Self Edit Transcribed Date: 11/03/2024 13:35 ET Narrative 11/03/2024 1:38 PM EST INDICATION: Left-sided weakness and facial numbness Technique: Axial images were obtained from the skull base to the vertex without contrast enhancement. Scanner: [employer] 64 slice VCT Dose reduction technique: ASIR (Adaptive statistical iterative reconstruction) Dose: total exam DLP 808 mGY per cm Comparison: No prior studies available for comparison. FINDINGS: Intracranial contents: No acute intracranial hemorrhage, midline shift or mass-effect. The ventricles, sulci, sylvian fissures and basilar cisterns are symmetric and normal in size and shape for the patients age. No abnormal intra or extra-axial fluid collections. 8 mm x 6 mm low-attenuation oval focus within the left basal ganglia likely represents a Virchow-Ajay space. Bony structures/soft tissues: Within normal limits. Sinuses: Paranasal sinuses demonstrate small air-fluid level within the right maxillary sinus with minimal dependent attenuation within the left sphenoid sinus. Mastoid air cells are well aerated. Procedure Note Dell Abraham MD - 11/03/2024 INDICATION: Left-sided weakness and facial numbness Technique: Axial images were obtained from the skull base to the vertexwithout contrast enhancement. Scanner: [employer] 64 slice VCT Dose reduction technique: ASIR (Adaptive statistical iterativereconstruction) Dose: total exam DLP 808 mGY per cm Comparison: No prior studies available for comparison. FINDINGS: Intracranial contents: No acute intracranial hemorrhage, midline shift ormass- effect. The ventricles, sulci, sylvian fissures and basilar cisternsare symmetric and normal in size and shape for the patients age. Noabnormal intra or extra-axial fluid collections. 8 mm x 6 mmlow-attenuation oval focus within the left basal ganglia likely representsa Virchow-Ajay space. Bony structures/soft tissues: Within normal limits. Sinuses: Paranasal sinuses demonstrate small air-fluid level within theright maxillary sinus with minimal dependent attenuation within the leftsphenoid sinus. Mastoid air cells are well aerated. IMPRESSION: No evidence of acute intracranial process on noncontrast head CT. A Critical Document Only message has been documented for the office ofDAFNE BECK in the [employer] system on11/03/2024 1:38 PM, Message ID [id number]. -------- FINAL REPORT -------- Dictated By: Dell Abraham Dictated Date: 11/03/2024 13:35 ET Assigned Physician: Dell Abraham Reviewed and Electronically Signed By: Dell Abraham Signed Date: 11/03/2024 13:38 ET Workstation ID: [id number] Transcribed By: Self Edit Transcribed Date: 11/03/2024 13:35 ET Dafne EATON IMG CT PROCEDURES * ECG 12 lead (11/03/2024 12:07 PM EST) Ventricular Rate ECG 89 BPM GEMUSE Atrial Rate 89 BPM GEMUSE P-R Interval 140 ms GEMUSE QRS Duration 90 ms GEMUSE Q-T Interval 374 ms GEMUSE QTc 455 ms GEMUSE P Wave Barto 58 degrees GEMUSE R Barto -30 degrees GEMUSE T Barto 67 degrees GEMUSE ECG Interpretation Sinus rhythm with sinus arrhythmia with occasional Premature ventricular complexes Left axis deviation ST and T wave abnormality, consider anterior ischemia Abnormal ECG No previous ECGs available Confirmed by LESLIE BARRETT ([id number]) on 11/04/2024 5:10:23 PM GEMUSE 11/03/2024 12:0 7 PM EST 11/04/2024 5:10 PM EST Juliann Man DO ECG ORDERABLES GEMUSE * (ABNORMAL) POCT Glucose, blood (11/03/2024 12:01 PM EST) Glucose POCT 110(H) 70 - 100 mg/dL 11/03/2024 12:02 PM EST [facility] Blood Capillary blood specimen / Unknown 11/03/2024 12:01 PM EST 11/03/2024 12:03 PM EST Juliann Burks Donovan DO LAB POINT OF CARE TEST DOCKED DEVICE UNSOLICITED RESULTS [facility] [address] [place] [address], [place] [phone] * POCT Glucose, blood (11/03/2024 11:05 AM EST) Glucose POCT 98 70 - 100 mg/dL 11/03/2024 11:06 AM EST [facility] Blood Capillary blood specimen / Unknown 11/03/2024 11:05 AM EST 11/03/2024 11:08 AM EST Juliann Elizaldeese DO LAB POINT OF CARE TEST DOCKED DEVICE UNSOLICITED RESULTS Performing Organization Address City/[facility]/ZIP Co de Phone Number [facility] [address] [place] [address], [place] [phone] * POCT Glucose, blood (11/03/2024 7:20 AM EST) Glucose POCT 82 70 - 100 mg/dL 11/03/2024 7:21 AM EST [facility] Blood Capillary blood specimen / Unknown 11/03/2024 7:20 AM EST 11/03/2024 7:22 AM EST Juliannmukund Elizaldeese DO LAB POINT OF CARE TEST DOCKED DEVICE UNSOLICITED RESULTS Performing Organization Address City/[facility]/ZIP Co de Phone Number [facility] [address] [place] [address], * (ABNORMAL) POCT Glucose, blood (11/02/2024 8:02 PM EST) Glucose POCT 136(H) 70 - 100 mg/dL 11/02/2024 8:03 PM EST [facility] Blood Capillary blood specimen / Unknown 11/02/2024 8:02 PM EST 11/02/2024 8:05 PM EST Juliann Kimmie [email or web address] LAB POINT OF CARE TEST DOCKED DEVICE UNSOLICITED RESULTS [facility] [address] [place] [address], * (ABNORMAL) POCT Glucose, blood (11/02/2024 4:03 PM EST) Glucose POCT 139(H) 70 - 100 mg/dL 11/02/2024 4:04 PM EST [facility] Blood Capillary blood specimen / Unknown 11/02/2024 4:03 PM EST 11/02/2024 4:05 PM EST Juliann Burks [email or web address] LAB POINT OF CARE TEST DOCKED DEVICE UNSOLICITED RESULTS [facility] [address] [place] [address], * (ABNORMAL) POCT Glucose, blood (11/02/2024 11:23 AM EST) Glucose POCT 114(H) 70 - 100 mg/dL 11/02/2024 11:24 AM EST [facility] Blood Capillary blood specimen / Unknown 11/02/2024 11:23 AM EST 11/02/2024 11:25 AM EST Juliann Kimmie Donovan DO LAB POINT OF CARE TEST DOCKED DEVICE UNSOLICITED RESULTS Performing Organization Address [facility]/ZIP Co de Phone Number [facility] [address] [place] [address], * (ABNORMAL) POCT Glucose, blood (11/02/2024 7:31 AM EST) Glucose POCT 102(H) 70 - 100 mg/dL 11/02/2024 11:22 AM EST [facility] Blood Capillary blood specimen / Unknown 11/02/2024 7:31 AM EST 11/02/2024 11:23 AM EST Juliann Man DO LAB POINT OF CARE TEST DOCKED DEVICE UNSOLICITED RESULTS Performing Organization Address [facility] Co de Phone Number [facility] [address] [place] [address], * (ABNORMAL) POCT Glucose, blood (11/01/2024 4:26 PM EST) Glucose POCT 101(H) 70 - 100 mg/dL 11/01/2024 10:54 PM EST [facility] Blood Capillary blood specimen / Unknown 11/01/2024 4:26 PM EST 11/01/2024 10:55 PM EST Juliann Man DO LAB POINT OF CARE TEST DOCKED DEVICE UNSOLICITED RESULTS Performing Organization Address [facility]/ZIP Co de Phone Number [facility] [address] [place] [address], [place] [phone] * (ABNORMAL) POCT Glucose, blood (11/01/2024 11:09 AM EST) Glucose POCT 114(H) 70 - 100 mg/dL 11/01/2024 11:12 AM EST [facility] Blood Capillary blood specimen / Unknown 11/01/2024 11:09 AM EST 11/01/2024 11:12 AM EST Juliann Man DO LAB POINT OF CARE TEST DOCKED DEVICE UNSOLICITED RESULTS Performing Organization Address [facility] Co de Phone Number [facility] [address] [place] [address], [place] [phone] * POCT Glucose, blood (11/01/2024 7:17 AM EST) Glucose POCT 100 70 - 100 mg/dL 11/01/2024 7:21 AM EST [facility] Blood Capillary blood specimen / Unknown 11/01/2024 7:17 AM EST 11/01/2024 7:22 AM EST Juliann Man LAB POINT OF CARE TEST DOCKED DEVICE UNSOLICITED RESULTS Performing Organization Address [facility] de Phone Number [facility] [address] [place] [address], [place] [phone] * (ABNORMAL) POCT Glucose, blood (10/31/2024 7:52 PM EST) Glucose POCT 112(H) 70 - 100 mg/dL 10/31/2024 7:54 PM EST [facility] Blood Capillary blood specimen / Unknown 10/31/2024 7:52 PM EST 10/31/2024 7:55 PM EST Juliann Man LAB POINT OF CARE TEST DOCKED DEVICE UNSOLICITED RESULTS Performing Organization Address [facility] Co de Phone Number [facility] [address] [place] [address], [place] [phone] * (ABNORMAL) POCT Glucose, blood (10/31/2024 3:36 PM EST) Glucose POCT 105(H) 70 - 100 mg/dL 10/31/2024 3:36 PM EST [facility] Blood Capillary blood specimen / Unknown 10/31/2024 3:36 PM EST 10/31/2024 3:37 PM EST Juliannmukund Man DO LAB POINT OF CARE TEST DOCKED DEVICE UNSOLICITED RESULTS Performing Organization Address City/[facility]/ZIP Co de Phone Number [facility] [address] [place] [address], [place] [phone] * POCT Glucose, blood (10/31/2024 11:05 AM EST) Glucose POCT 85 70 - 100 mg/dL 10/31/2024 11:06 AM EST [facility] Blood Capillary blood specimen / Unknown 10/31/2024 11:05 AM EST 10/31/2024 11:07 AM EST Juliann Burks Donovan DO LAB POINT OF CARE TEST DOCKED DEVICE UNSOLICITED RESULTS Performing Organization Address [facility]/ZIP Co de Phone Number [facility] [address] [place] [address], [place] [phone] * (ABNORMAL) POCT Glucose, blood (10/31/2024 7:18 AM EST) Glucose POCT 104(H) 70 - 100 mg/dL 10/31/2024 7:19 AM EST [facility] Blood Capillary blood specimen / Unknown 10/31/2024 7:18 AM EST 10/31/2024 7:20 AM EST Juliann A Donovan DO LAB POINT OF CARE TEST DOCKED DEVICE UNSOLICITED RESULTS [facility] [address] [place] [address], [place] [phone] * (ABNORMAL) POCT Glucose, blood (10/30/2024 8:19 PM EST) Glucose POCT 185(H) 70 - 100 mg/dL 10/30/2024 8:21 PM EST [facility] Blood Capillary blood specimen / Unknown 10/30/2024 8:19 PM EST 10/30/2024 8:22 PM EST Juliann A Donovan DO LAB POINT OF CARE TEST DOCKED DEVICE UNSOLICITED RESULTS [facility] [address] [place] [address], [place] [phone] * (ABNORMAL) POCT Glucose, blood (10/30/2024 4:21 PM EST) Glucose POCT 151(H) 70 - 100 mg/dL 10/30/2024 4:22 PM EST [facility] Blood Capillary blood specimen / Unknown 10/30/2024 4:21 PM EST 10/30/2024 4:23 PM EST Juliann Kimmie Man [employer] LAB POINT OF CARE TEST DOCKED DEVICE UNSOLICITED RESULTS [facility] [address] [place] [address], [place] [phone] * POCT Glucose, blood (10/30/2024 11:16 AM EST) Glucose POCT 95 70 - 100 mg/dL 10/30/2024 11:17 AM EST [facility] Blood Capillary blood specimen / Unknown 10/30/2024 11:16 AM EST 10/30/2024 11:18 AM EST Juliann Kimmie Man DO LAB POINT OF CARE TEST DOCKED DEVICE UNSOLICITED RESULTS [facility] [address] [place] [address], [place] [phone] * (ABNORMAL) POCT Glucose, blood (10/30/2024 7:22 AM EST) Glucose POCT 109(H) 70 - 100 mg/dL 10/30/2024 7:22 AM EST [facility] Blood Capillary blood specimen / Unknown 10/30/2024 7:22 AM EST 10/30/2024 7:24 AM EST Juliann Elizaldeese LAB POINT OF CARE TEST DOCKED DEVICE UNSOLICITED RESULTS [facility] [address] [place] [address], [place] [phone] * (ABNORMAL) POCT Glucose, blood (10/29/2024 8:22 PM EST) Glucose POCT 158(H) 70 - 100 mg/dL 10/29/2024 8:23 PM EST [facility] Blood Capillary blood specimen / Unknown 10/29/2024 8:22 PM EST 10/29/2024 8:24 PM EST Juliann Man [facility] POINT OF CARE TEST DOCKED DEVICE UNSOLICITED RESULTS [facility] [address] [place] [address], [place] [phone] * (ABNORMAL) POCT Glucose, blood (10/29/2024 4:17 PM EST) Glucose POCT 144(H) 70 - 100 mg/dL 10/29/2024 4:17 PM EST [facility] Blood Capillary blood specimen / Unknown 10/29/2024 4:17 PM EST 10/29/2024 4:18 PM EST Juliann Man DO LAB POINT OF CARE TEST DOCKED DEVICE UNSOLICITED RESULTS Performing Organization Address [facility] Co de Phone Number [facility] [address] [place] [address], [place] [phone] * POCT Glucose, blood (10/29/2024 11:10 AM EST) Glucose POCT 98 70 - 100 mg/dL 10/29/2024 11:10 AM EST [facility] Blood Capillary blood specimen / Unknown 10/29/2024 11:10 AM EST 10/29/2024 11:11 AM EST Juliann Man LAB POINT OF CARE TEST DOCKED DEVICE UNSOLICITED RESULTS Performing Organization Address [facility] de Phone Number [facility] [address] [place] [address], [place] [phone] * (ABNORMAL) POCT Glucose, blood (10/29/2024 7:26 AM EST) [facility] Signature Glucose POCT 152(H) 70 - 100 mg/dL 10/29/2024 7:27 AM EST [facility] Blood Capillary blood specimen / Unknown 10/29/2024 7:26 AM EST 10/29/2024 7:28 AM EST Juliann Man DO LAB POINT OF CARE TEST DOCKED DEVICE UNSOLICITED RESULTS Performing Organization Address [facility] Co de Phone Number [facility] [address] [place] [address], [place] [phone] * (ABNORMAL) Complete blood count (10/29/2024 6:03 AM EST) WBC 4.9 4.8 - 10.8 K/[facility] LAB HEMETOLOGY METHOD 10/29/2024 7:15 AM EST [facility] RBC 4.60 3.80 - 4.80 M/mcL LAB HEMETOLOGY METHOD 10/29/2024 7:15 AM [facility] Hemoglobin 10.8(L) 11.5 - 16.0 g/dL LAB HEMETOLOGY METHOD 10/29/2024 7:15 AM [facility] Hematocrit 35.7 35.0 - 47.0 % LAB HEMETOLOGY METHOD 10/29/2024 7:15 AM [facility] MCV 78.1(L) 79.0 - 98.0 FL LAB HEMETOLOGY METHOD 10/29/2024 7:15 AM [facility] MCH 23.6(L) 27.0 - 32.0 pcg LAB HEMETOLOGY METHOD 10/29/2024 7:15 AM [facility] MCHC 30.3(L) 32.0 - 37.0 g/dL LAB HEMETOLOGY METHOD 10/29/2024 7:15 AM [facility] RDW 16.0(H) 11.0 - 15.0 % LAB HEMETOLOGY METHOD 10/29/2024 7:15 AM [facility] Platelets 227 130 - 400 K/mcL LAB HEMETOLOGY METHOD 10/29/2024 7:15 AM [facility] MPV 11.0 7.0 - 11.0 FL LAB HEMETOLOGY METHOD 10/29/2024 7:15 AM [facility] NRBC 0.0 <1.0 % LAB HEMETOLOGY METHOD 10/29/2024 7:15 AM [facility] NRBC Absolute 0.00 <0.10 K/mcL LAB HEMETOLOGY METHOD 10/29/2024 7:15 AM [facility] Blood Venous blood specimen / Unknown Venipuncture / Unknown 10/29/2024 6:03 AM EST 10/29/2024 6:41 AM EST Dafne EATON LAB BLOOD ORDERABLES [facility] [address] [place] [address], * (ABNORMAL) Comprehensive metabolic panel (10/29/2024 6:03 AM EST) Sodium 137 133 - 145 mmol/L LAB CHEMISTRY METHOD 10/29/2024 7:30 AM EST [facility] Potassium 4.6 3.5 - 5.5 mmol/L LAB CHEMISTRY METHOD 10/29/2024 7:30 AM [facility] Chloride 107 96 - 110 mmol/L LAB CHEMISTRY METHOD 10/29/2024 7:30 AM [facility] CO2 27 21 - 32 mmol/L LAB CHEMISTRY METHOD 10/29/2024 7:30 AM [facility] Anion Gap 3 3 - 11 LAB CHEMISTRY METHOD 10/29/2024 7:30 AM [facility] Glucose 109(H) 70 - 100 mg/dL LAB CHEMISTRY METHOD 10/29/2024 7:30 AM [facility] BUN 17 5 - 25 mg/dL LAB CHEMISTRY METHOD 10/29/2024 7:30 AM [facility] Creatinine 0.75 0.50 - 1.10 mg/dL LAB CHEMISTRY METHOD 10/29/2024 7:30 AM [facility] eGFR 90 >=60 mL/min/1. 73m2 LAB CHEMISTRY METHOD 10/29/2024 7:30 AM [facility] Comment:Calculation based on the??Chronic Kidney Disease Epidemiology Collaboration (CKD-EPI) equation refit??without adjustment for race. BUN/Creatinine Ratio 22.7 LAB CHEMISTRY METHOD 10/29/2024 7:30 AM [facility] Calcium 8.8 8.5 - 10.5 mg/dL LAB CHEMISTRY METHOD 10/29/2024 7:30 AM [facility] AST (SGOT) 13 10 - 42 unit/L LAB CHEMISTRY METHOD 10/29/2024 7:30 AM [facility] ALT (SGPT) 14 10 - 60 unit/L LAB CHEMISTRY METHOD 10/29/2024 7:30 AM [facility] Alkaline Phosphatase 70 42 - 121 unit/L LAB CHEMISTRY METHOD 10/29/2024 7:30 AM [facility] Total Protein 6.9 6.0 - 8.0 g/dL LAB CHEMISTRY METHOD 10/29/2024 7:30 AM [facility] Albumin 3.4 3.2 - 5.0 g/dL LAB CHEMISTRY METHOD 10/29/2024 7:30 AM [facility] Total Bilirubin 0.3 0.0 - 1.4 mg/dL LAB CHEMISTRY METHOD 10/29/2024 7:30 AM [facility] Blood Venous blood specimen / Unknown Venipuncture / Unknown 10/29/2024 6:03 AM EST 10/29/2024 6:41 AM EST Dafne EATON LAB BLOOD ORDERABLES [facility] [address] [place] [address], * (ABNORMAL) POCT Glucose, blood (10/28/2024 8:14 PM EST) Glucose POCT 155(H) 70 - 100 mg/dL 10/28/2024 8:15 PM EST [facility] Blood Capillary blood specimen / Unknown 10/28/2024 8:14 PM EST 10/28/2024 8:17 PM EST Juliann Man DO LAB POINT OF CARE TEST DOCKED DEVICE UNSOLICITED RESULTS [facility] [address] [place] [address], [place] [phone] * (ABNORMAL) POCT Glucose, blood (10/28/2024 4:02 PM EST) Glucose POCT 110(H) 70 - 100 mg/dL 10/28/2024 4:07 PM EST [facility] Blood Capillary blood specimen / Unknown 10/28/2024 4:02 PM EST 10/28/2024 4:08 PM EST Juliann Man DO LAB POINT OF CARE TEST DOCKED DEVICE UNSOLICITED RESULTS [facility] [address] [place] [address], [place] [phone] * (ABNORMAL) POCT Glucose, blood (10/28/2024 11:06 AM EST) Glucose POCT 134(H) 70 - 100 mg/dL 10/28/2024 11:08 AM EST [facility] Blood Capillary blood specimen / Unknown 10/28/2024 11:06 AM EST 10/28/2024 11:09 AM EST Juliann Man DO LAB POINT OF CARE TEST DOCKED DEVICE UNSOLICITED RESULTS [facility] [address] [place] [address], [place] [phone] * POCT Glucose, blood (10/28/2024 7:22 AM EST) Glucose POCT 93 70 - 100 mg/dL 10/28/2024 7:24 AM EST [facility] Blood Capillary blood specimen / Unknown 10/28/2024 7:22 AM EST 10/28/2024 7:25 AM EST Juliann Man [employer] LAB POINT OF CARE TEST DOCKED DEVICE UNSOLICITED RESULTS Performing Organization Address [facility]/ZIP Co de Phone Number [facility] [address] [place] [address], [place] [phone] * (ABNORMAL) POCT Glucose, blood (10/27/2024 8:00 PM EST) Glucose POCT 107(H) 70 - 100 mg/dL 10/27/2024 8:01 PM EST [facility] Blood Capillary blood specimen / Unknown 10/27/2024 8:00 PM EST 10/27/2024 8:02 PM EST Juliann Man LAB POINT OF CARE TEST DOCKED DEVICE UNSOLICITED RESULTS Performing Organization Address [facility] Co de Phone Number [facility] [address] [place] [address], [place] [phone] * (ABNORMAL) POCT Glucose, blood (10/27/2024 4:01 PM EST) Glucose POCT 121(H) 70 - 100 mg/dL 10/27/2024 4:02 PM EST [facility] Blood Capillary blood specimen / Unknown 10/27/2024 4:01 PM EST 10/27/2024 4:03 PM EST Juliann Man LAB POINT OF CARE TEST DOCKED DEVICE UNSOLICITED RESULTS Performing Organization Address [facility]/ZIP Co de Phone Number [facility] [address] [place] [address], [place] [phone] * POCT Glucose, blood (10/27/2024 11:24 AM EST) Glucose POCT 98 70 - 100 mg/dL 10/27/2024 11:28 AM EST [facility] Blood Capillary blood specimen / Unknown 10/27/2024 11:24 AM EST 10/27/2024 11:29 AM EST Juliann Man DO LAB POINT OF CARE TEST DOCKED DEVICE UNSOLICITED RESULTS Performing Organization Address [facility] Co de Phone Number [facility] [address] [place] [address], [place] [phone] * POCT Glucose, blood (10/27/2024 7:27 AM EST) Glucose POCT 99 70 - 100 mg/dL 10/27/2024 7:29 AM EST [facility] Blood Capillary blood specimen / Unknown 10/27/2024 7:27 AM EST 10/27/2024 7:31 AM EST Juliannmukund Carlosabr[facility]ck [facility] LAB POINT OF CARE TEST DOCKED DEVICE UNSOLICITED RESULTS Performing Organization Address [facility] de Phone Number [facility] [address] [place] [address], [place] [phone] * (ABNORMAL) POCT Glucose, blood (10/26/2024 8:09 PM EST) Glucose POCT 102(H) 70 - 100 mg/dL 10/26/2024 8:10 PM EST [facility] Blood Capillary blood specimen / Unknown 10/26/2024 8:09 PM EST 10/26/2024 8:11 PM EST Juliann Man [place] LAB POINT OF CARE TEST DOCKED DEVICE UNSOLICITED RESULTS Performing Organization Address [facility] Co de Phone Number [facility] [address] [place] [address], [place] [phone] * (ABNORMAL) POCT Glucose, blood (10/26/2024 4:26 PM EST) Glucose POCT 120(H) 70 - 100 mg/dL 10/26/2024 5:12 PM EST [facility] ([facility]) [facility] Blood Capillary blood specimen / Unknown 10/26/2024 4:26 PM EST 10/26/2024 5:13 PM EST Juliann Kimmie Man DO LAB POINT OF CARE TEST DOCKED DEVICE UNSOLICITED RESULTS [facility] ([facility]) [facility] [address] [place] [address], * XR Shoulder 2+ Views Right (10/26/2024 2:22 PM EST) Anatomical Region Laterality Modality Upper Extremities, Shoulder Right Radi ographic Imaging 10/26/2024 2:24 PM EST Impressions 10/26/2024 2:25 PM EST No shoulder fracture or dislocation. [id number] -------- FINAL REPORT -------- Dictated By: Dell Abraham Dictated Date: 10/26/2024 14:24 ET Assigned Physician: Dell Abraham Reviewed and Electronically Signed By: Dell Abraham Signed Date: 10/26/2024 14:25 ET Workstation ID: [id number] Transcribed By: Self Edit Transcribed Date: 10/26/2024 14:24 ET Narrative 10/26/2024 2:25 PM EST INDICATION: Shoulder pain FINDINGS: Minimum of 2 views of the right shoulder were obtained. No prior studies available for comparison. No fracture or dislocation. No radiopaque foreign body or periosteal reaction is noted. No significant soft tissue abnormality. Mild degenerative changes. Procedure Note Dell Abraham MD - 10/26/2024 INDICATION: Shoulder pain FINDINGS: Minimum of 2 views of the right shoulder were obtained. No priorstudies available for comparison. No fracture or dislocation. No radiopaque foreign body or periostealreaction is noted. No significant soft tissue abnormality. Milddegenerative changes. IMPRESSION: No shoulder fracture or dislocation. [id number] -------- FINAL REPORT -------- Dictated By: Dell Abraham Dictated Date: 10/26/2024 14:24 ET Assigned Physician: Dell Abraham Reviewed and Electronically Signed By: Dell Abraham Signed Date: 10/26/2024 14:25 ET Workstation ID: [id number] Transcribed By: Self Edit Transcribed Date: 10/26/2024 14:24 ET Juliann Man DO IMG XR PROCEDURES * POCT Glucose, blood (10/26/2024 11:10 AM EST) Glucose POCT 88 70 - 100 mg/dL 10/26/2024 11:38 AM EST [facility] Blood Capillary blood specimen / Unknown 10/26/2024 11:10 AM EST 10/26/2024 11:39 AM EST Juliann Man DO LAB POINT OF CARE TEST DOCKED DEVICE UNSOLICITED RESULTS Performing Organization Address City/[facility]/ZIP Co de Phone Number [facility] [address] [place] [address], [place] [phone] * POCT Glucose, blood (10/26/2024 7:21 AM EST) [facility] Signature Glucose POCT 100 70 - 100 mg/dL 10/26/2024 7:22 AM EST [facility] Blood Capillary blood specimen / Unknown 10/26/2024 7:21 AM EST 10/26/2024 7:23 AM EST Juliann [employer] [facility] LAB POINT OF CARE TEST DOCKED DEVICE UNSOLICITED RESULTS Performing Organization Address City/[facility]/ZIP Co de Phone Number [facility] [address] [place] [address], [place] [phone] * (ABNORMAL) CBC auto differential (10/26/2024 6:38 AM EST) WBC 5.4 4.8 - 10.8 K/mcL LAB HEMETOLOGY METHOD 10/26/2024 7:03 AM [facility] RBC 5.10(H) 3.80 - 4.80 M/mcL LAB HEMETOLOGY METHOD 10/26/2024 7:03 AM [facility] Hemoglobin 12.2 11.5 - 16.0 g/dL LAB HEMETOLOGY METHOD 10/26/2024 7:03 AM [facility] Hematocrit 39.8 35.0 - 47.0 % LAB HEMETOLOGY METHOD 10/26/2024 7:03 AM [facility] MCV 78.7(L) 79.0 - 98.0 FL LAB HEMETOLOGY METHOD 10/26/2024 7:03 AM [facility] MCH 24.1(L) 27.0 - 32.0 pcg LAB HEMETOLOGY METHOD 10/26/2024 7:03 AM [facility] MCHC 30.7(L) 32.0 - 37.0 g/dL LAB HEMETOLOGY METHOD 10/26/2024 7:03 AM [facility] RDW 15.7(H) 11.0 - 15.0 % LAB HEMETOLOGY METHOD 10/26/2024 7:03 AM [facility] Platelets 253 130 - 400 K/mcL LAB HEMETOLOGY METHOD 10/26/2024 7:03 AM [facility] MPV 11.0 7.0 - 11.0 FL LAB HEMETOLOGY METHOD 10/26/2024 7:03 AM [facility] NRBC 0.0 <1.0 % LAB HEMETOLOGY METHOD 10/26/2024 7:03 AM [facility] NRBC Absolute 0.00 <0.10 K/mcL LAB HEMETOLOGY METHOD 10/26/2024 7:03 AM [facility] Neutrophils Relative 31.4 % LAB HEMETOLOGY METHOD 10/26/2024 7:03 AM [facility] Lymphocytes Relative 49.4 % LAB HEMETOLOGY METHOD 10/26/2024 7:03 AM [facility] Monocytes Relative 10.8 % LAB HEMETOLOGY METHOD 10/26/2024 7:03 AM [facility] Eosinophils Relative 7.8 % LAB HEMETOLOGY METHOD 10/26/2024 7:03 AM [facility] Basophils Relative 0.4 % LAB HEMETOLOGY METHOD 10/26/2024 7:03 AM [facility] Immature Granulocytes Relative 0.2 % LAB HEMETOLOGY METHOD 10/26/2024 7:03 AM [facility] Neutrophils Absolute 1.69 1.50 - 7.00 K/mcL LAB HEMETOLOGY METHOD 10/26/2024 7:03 AM [facility] Lymphocytes Absolute 2.66 1.00 - 5.00 K/mcL LAB HEMETOLOGY METHOD 10/26/2024 7:03 AM [facility] Monocytes Absolute 0.58 0.20 - 1.00 K/mcL LAB HEMETOLOGY METHOD 10/26/2024 7:03 AM [facility] Eosinophils Absolute 0.42 0.00 - 0.50 K/mcL LAB HEMETOLOGY METHOD 10/26/2024 7:03 AM [facility] Basophils Absolute 0.02 0.00 - 0.20 K/mcL LAB HEMETOLOGY METHOD 10/26/2024 7:03 AM [facility] Immature Granulocytes Absolute 0.01 0.00 - 0.03 K/mcL LAB HEMETOLOGY METHOD 10/26/2024 7:03 AM [facility] Blood Venous blood specimen / Unknown Venipuncture / Unknown 10/26/2024 6:38 AM EST 10/26/2024 6:46 AM EST Ghazal EATON LAB BLOOD ORDERABLES Performing Organization Address City/[facility]/ZIP Co de Phone Number [facility] [address] [place] [address], * Hemoglobin A1c (10/26/2024 6:38 AM EST) Pathologist [facility] Hemoglobin A1C 6.1 <6.5 % LAB CHEMISTRY METHOD 10/26/2024 1:05 PM EST [facility] Mean Bld Glu Estim. 128 mg/dL LAB CHEMISTRY METHOD 10/26/2024 1:05 PM [facility] Blood Venous blood specimen / Unknown Venipuncture / Unknown 10/26/2024 6:38 AM EST 10/26/2024 6:46 AM EST Ghazal EATON LAB BLOOD ORDERABLES Performing Organization Address [facility]/ZIP Co de Phone Number [facility] [address] [place] [address], [place] [phone] * Comprehensive metabolic panel (10/26/2024 6:38 AM EST) [facility] Sodium 137 133 - 145 mmol/L LAB CHEMISTRY METHOD 10/26/2024 7:43 AM [facility] Potassium 3.7 3.5 - 5.5 mmol/L LAB CHEMISTRY METHOD 10/26/2024 7:43 AM [facility] Chloride 105 96 - 110 mmol/L LAB CHEMISTRY METHOD 10/26/2024 7:43 AM [facility] CO2 27 21 - 32 mmol/L LAB CHEMISTRY METHOD 10/26/2024 7:43 AM [facility] Anion Gap 5 3 - 11 LAB CHEMISTRY METHOD 10/26/2024 7:43 AM [facility] Glucose 88 70 - 100 mg/dL LAB CHEMISTRY METHOD 10/26/2024 7:43 AM [facility] BUN 15 5 - 25 mg/dL LAB CHEMISTRY METHOD 10/26/2024 7:43 AM [facility] Creatinine 0.92 0.50 - 1.10 mg/dL LAB CHEMISTRY METHOD 10/26/2024 7:43 AM [facility] eGFR 70 >=60 mL/min/1. 73m2 LAB CHEMISTRY METHOD 10/26/2024 7:43 AM [facility] Comment:Calculation based on the??Chronic Kidney Disease Epidemiology Collaboration (CKD-EPI) equation refit??without adjustment for race. BUN/Creatinine Ratio 16.3 LAB CHEMISTRY METHOD 10/26/2024 7:43 AM [facility] Calcium 9.6 8.5 - 10.5 mg/dL LAB CHEMISTRY METHOD 10/26/2024 7:43 AM [facility] AST (SGOT) 14 10 - 42 unit/L LAB CHEMISTRY METHOD 10/26/2024 7:43 AM [facility] ALT (SGPT) 13 10 - 60 unit/L LAB CHEMISTRY METHOD 10/26/2024 7:43 AM [facility] Alkaline Phosphatase 82 42 - 121 unit/L LAB CHEMISTRY METHOD 10/26/2024 7:43 AM [facility] Total Protein 7.2 6.0 - 8.0 g/dL LAB CHEMISTRY METHOD 10/26/2024 7:43 AM [facility] Albumin 3.7 3.2 - 5.0 g/dL LAB CHEMISTRY METHOD 10/26/2024 7:43 AM [facility] Total Bilirubin 0.4 0.0 - 1.4 mg/dL LAB CHEMISTRY METHOD 10/26/2024 7:43 AM [facility] Blood Venous blood specimen / Unknown Venipuncture / Unknown 10/26/2024 6:38 AM EST 10/26/2024 6:47 AM EST Ghazal EATON LAB BLOOD ORDERABLES Performing Organization Address [facility] Co de Phone Number [facility] [address] [place] [address], * (ABNORMAL) POCT Glucose, blood (10/25/2024 8:31 PM EST) Glucose POCT 117(H) 70 - 100 mg/dL 10/25/2024 8:32 PM EST [facility] Blood Capillary blood specimen / Unknown 10/25/2024 8:31 PM EST 10/25/2024 8:34 PM EST Juliann Man DO LAB POINT OF CARE TEST DOCKED DEVICE UNSOLICITED RESULTS Performing Organization Address [facility] de Phone Number [facility] [address] [place] [address], [place] [phone] * (ABNORMAL) POCT Glucose, blood (10/25/2024 4:24 PM EST) Glucose POCT 114(H) 70 - 100 mg/dL 10/25/2024 4:25 PM EST [facility] Blood Capillary blood specimen / Unknown 10/25/2024 4:24 PM EST 10/25/2024 4:26 PM EST Juliann Man DO LAB POINT OF CARE TEST DOCKED DEVICE UNSOLICITED RESULTS Performing Organization Address [facility] Co de Phone Number [facility] [address] [place] [address], [place] [phone] documented in this encounter Visit Diagnoses Diagnosis Cerebrovascular accident (CVA), unspecified mechanism (CMS/HCC)- Primary Stroke (CMS/HCC) Unspecified cerebral artery occlusion with cerebral infarction Diabetes (CMS/HCC) Type II or unspecified type diabetes mellitus without mention of complication, not stated as uncontrolled CVA (cerebral vascular accident) (CMS/HCC) Unspecified cerebral artery occlusion with cerebral infarction Noncompliance HTN (hypertension) Unspecified essential hypertension TIA (transient ischemic attack) Unspecified transient cerebral ischemia documented in this encounter Admitting Diagnoses Diagnosis CVA (cerebral vascular accident) (CMS/HCC) Unspecified cerebral artery occlusion with cerebral infarction documented in this encounter Administered Medications Inactive Administered Medications - up to 3 most recent administrations Medication Order MAR Action Action Date Dose Rate Site acetaminophen (TYLENOL) tablet 1,000 mg 1,000 mg, oral, Every 8 hours PRN, mild pain, Starting on Thu10/25/24 at 1537 Given 11/02/2024 2:47 PM EST 1,000 mg Given 10/30/2024 8:36 PM EST 1,000 mg Given 10/30/2024 9:51 AM EST 1,000 mg aspirin chewable tablet 81 mg 81 mg, oral, Daily, First dose on Thu10/26/24 at 0900, Indication: VTE/PE Prophylaxis Given 11/08/2024 9:14 AM EST 81 m g Given 11/07/2024 9:52 AM EST 81 mg Given 11/06/2024 8:06 AM EST 81 mg atorvastatin (LIPITOR) tablet 40 mg 40 mg, oral, Nightly, First dose on Thu10/25/24 at 2100 Given 11/07/2024 9:26 PM EST 40 mg Given 11/06/2024 8:10 PM EST 40 mg Given 11/05/2024 8:54 PM EST 40 mg budesonide (PULMICORT) 1 mg/2 mL nebulizer solution 0.5 mg 0.5 mg, nebulization, Daily, First dose on Thu10/25/24 at 1600, Rinse mouth with water after use to reduce aftertaste and incidence of candidiasis. Do not swallow. Therapeutic substitution for SYMBICORT 80/4.5 is budesonide neb daily and formoterol neb twice daily. Given 11/08/2024 9:05 AM EST 0.5 mg Given 11/07/2024 9:51 AM EST 0.5 mg Given 11/06/2024 8:05 AM EST 0.5 mg carvediloL (COREG) tablet 25 mg 25 mg, oral, 2 times daily with meals, First dose on Thu10/25/24 at 1700 Given 10/25/2024 5:06 PM EST 25 mg clopidogreL (PLAVIX) tablet 75 mg 75 mg, oral, Daily, First dose on Thu10/26/24 at 0900, Indications: CVA Given 11/08/2024 9:13 AM EST 75 mg Given 11/07/2024 9:52 AM EST 75 mg Given 11/06/2024 8:06 AM EST 75 mg docusate sodium (COLACE) capsule 100 mg 100 mg, oral, 2 times daily, First dose on Thu10/25/24 at 2100 Given 11/07/2024 9:52 AM EST 100 mg Given 11/05/2024 8:54 PM EST 100 mg Given 11/05/2024 9:09 AM EST 100 mg DULoxetine (CYMBALTA) DR capsule 60 mg 60 mg, oral, Daily, First dose on Thu10/26/24 at 0900, Do not crush or chew. Given 11/08/2024 9:13 AM EST 60 mg Given 11/07/2024 9:51 AM EST 60 mg Given 11/06/2024 8:06 AM EST 60 mg ferrous sulfate tablet 325 mg 325 mg, oral, Daily, First dose on Thu10/25/24 at 1600, Take on an empty stomach with a full glass of water, at least 1 hour before or 2 hours after a meal. May be taken with food if causes an upset stomach. Avoid taking antacids or antibiotics within 2 hours before or after. Ordered as ferrous sulfate. 325 mg ferrous sulfate = 65 mg elemental iron. Given 11/08/2024 9:13 AM EST 325 mg Given 11/07/2024 9:52 AM EST 325 mg Given 11/06/2024 8:06 AM EST 325 mg formoterol (PERFOROMIST) 20 mcg/2 mL nebulizer solution 20 mcg 20 mcg, nebulization, 2 times daily, First dose on Thu10/25/24 at 2100, Therapeutic substitution for SYMBICORT 80/4.5 is budesonide neb daily and formoterol neb twice daily. Given 11/08/2024 9:05 AM EST 20 mcg Given 11/07/2024 9:32 PM EST 20 mcg Given 11/07/2024 9:51 AM EST 20 mcg gabapentin (NEURONTIN) capsule 400 mg 400 mg, oral, Every 8 hours scheduled, First dose (after last modification) on Thu10/28/24 at 1400 Given 11/08/2024 5:06 AM EST 400 mg Given 11/07/2024 9:30 PM EST 400 mg Given 11/07/2024 5:10 AM EST 400 mg gabapentin (NEURONTIN) capsule 600 mg 600 mg, oral, Every 8 hours scheduled, First dose (after last modification) on Thu10/26/24 at 2200 Given 10/28/2024 5:44 AM EST 600 mg Given 10/27/2024 9:41 PM EST 600 mg Given 10/27/2024 2:01 PM EST 600 mg gabapentin (NEURONTIN) capsule 800 mg 800 mg, oral, Every 8 hours, First dose on Thu10/25/24 at 1600 Given 10/26/2024 9:38 AM EST 800 mg Given 10/26/2024 12:19 AM EST 800 mg Given 10/25/2024 5:04 PM EST 800 mg insulin lispro injection 2-12 Units 2-12 Units, subcutaneous, 3 times daily before meals, First dose on Thu10/25/24 at 1630, Indication: Total Daily Dose (TDD) 40 - 80 units. Correction Scale: Moderate Dose Administer with meal and/or mealtime dose of insulin to correct high blood glucose If mealtime insulin dose not given (e.g. patient NPO or not eating), still administer correction factor for high blood glucose, Indications: type 2 diabetes mellitus Given 10/30/2024 5:09 PM EST 2 Units Right Upper Arm (Ronaldo k) Given 10/29/2024 8:51 AM EST 2 Units Ri ght Upper Arm (Back) lactulose (CHRONULAC) solution 20 g 20 g, oral, Once, On Thu10/29/24 at 1245, For 1 dose Given 10/29/2024 1:36 PM EST 20 g lidocaine (XYLOCAINE) 1 % injection 5 mL 5 mL, injection, Once, On Thu10/28/24 at 0845, For 1 dose, For right shoulder injection by Dr Man Given 10/28/2024 12:46 PM EST 5 mL Right Arm lidocaine 4 % patch 1 patch 1 patch, Topical, Administer over 12 Hours, Daily, First dose on Thu10/26/24 at 1315, Apply to right anterior shoulder (pain site). Apply in am, remove at bedtime.. Patch Applied 11/08/2024 9:13 AM EST 1 patch Other Patch Applied 11/06/2024 8:05 AM EST 1 patch Right Arm Patch Applied 11/05/2024 9:09 AM EST 1 patch Right Arm magnesium hydroxide (MILK OF MAGNESIA) 400 mg/5 mL suspension 30 mL 30 mL, oral, Nightly PRN, constipation, Starting on Thu10/27/24 at 1430, Follow dose with 8 oz of water. Given 10/28/2024 9:15 PM EST 30 mL oxyCODONE (ROXICODONE) immediate release tablet 2.5 mg 2.5 mg, oral, Every 4 hours PRN, moderate pain, severe pain, prn shoulder pain., Starting on Thu10/26/24 at 1551 Given 11/07/2024 9:37 PM EST 2.5 mg Given 11/07/2024 5:09 AM EST 2.5 mg Given 11/06/2024 8:11 PM EST 2.5 mg pantoprazole (PROTONIX) EC tablet 40 mg 40 mg, oral, Every morning before breakfast, First dose on Thu10/26/24 at 0700, Do not crush, chew, or split. Given 11/08/2024 5:06 AM EST 40 mg Given 11/07/2024 5:10 AM EST 40 mg Given 11/06/2024 5:24 AM EST 40 mg sacubitriL-valsartan (ENTRESTO) 24-26 mg per tablet 1 tablet 1 tablet, oral, 2 times daily, First dose (after last reorder) on Thu10/26/24 at 1045, Hold if sbp less 120 Contraindicated in combination with ADDISON inhibitors. Ensure a minimum of 36 hours between any ADDISON inhibitor dose and sacubitril-valsartan. Given 11/03/2024 10:41 PM EST 1 tablet Given 11/01/2024 10:31 PM EST 1 tablet Given 11/01/2024 9:35 AM EST 1 tablet sacubitriL-valsartan (ENTRESTO) 97-103 mg per tablet 1 tablet 1 tablet, oral, 2 times daily, First dose on Thu10/25/24 at 2100, Contraindicated in combination with ADDISON inhibitors. Ensure a minimum of 36 hours between any ADDISON inhibitor dose and sacubitril-valsartan. Given 10/25/2024 8:35 PM EST 1 t ablet senna (SENOKOT) tablet 17.2 mg 17.2 mg (2 tablet), oral, Nightly, First dose on Thu10/29/24 at 2100 Given 11/05/2024 8:55 PM EST 17.2 mg Given 11/04/2024 10:26 PM EST 17.2 mg Given 11/03/2024 10:42 PM EST 17.2 mg sodium chloride 0.9 % flush 3 mL 3 mL, intravenous, Every 8 hours scheduled, First dose on Thu10/28/24 at 1400 Given 11/05/2024 8:58 PM EST 3 mL Given 11/05/2024 2:32 PM EST 3 mL Given 11/05/2024 5:06 AM EST 3 mL Ri ght Forearm sodium chloride 0.9 % infusion 75 mL/hr, intravenous, Once, On Thu10/28/24 at 0915, For 1 dose New Bag 10/28/2024 10:00 AM EST 75 mL/hr 75 mL/hr sodium chloride 0.9 % infusion 75 mL/hr, intravenous, Continuous, Starting on Thu11/04/24 at 0930, Total 1 liter Rate/Dose Verify 11/05/2024 1:00 AM EST 75 mL/hr 75 mL/hr Rate/Dose Verify 11/04/2024 11:00 PM EST 75 mL/hr 75 mL/ hr Rate/Dose Verify 11/04/2024 10:00 PM EST 75 mL/hr 75 mL/ hr traZODone (DESYREL) tablet 150 mg 150 mg, oral, Nightly, First dose on Thu10/25/24 at 2100 Given 11/07/2024 9:28 PM EST 150 mg Given 11/06/2024 8:15 PM EST 150 mg Given 11/05/2024 8:54 PM EST 150 mg triamcinolone acetonide (KENALOG-40) 40 mg/mL injection 40 mg 40 mg, intra-articular, Once, On Thu10/28/24 at 0845, For 1 dose, For intra-articular, intralesional (off-label route), or soft tissue administration. When administered intralesionally, inject directly into the lesion (ie, into the mid-dermis). One mL syringes with a 30-gauge needle are preferable for intralesional injections. When administered intramuscular (IM), inject deep into the gluteal muscle using a minimum needle length of 1 and 1/2 inches. Obese patients may require a longer needle. Alternate sites for subsequent injections. Avoid IM injections into deltoid area. Given 10/28/2024 12:46 PM EST 40 mg Righ t Arm documented in this encounter Discontinued Medications Medication Sig Discontinue Reason Start Date End Da te Jardiance 10 mg tablet Take 1 tablet (10 mg total) by mouth 1 (one) time each day. Formulary change 10/26/2024 10/25/2024 umeclidinium (INCRUSE ELLIPTA) 62.5 mcg/actuation inhalation Inhale 1 puff by mouth 1 (one) time each day. Formulary change 10/25/2024 ferrous sulfate 325 mg (65 mg elemental iron) tablet Take 1 tablet (325 mg total) by mouth 1 (one) time each day. 11/08/2024 aspirin 81 mg chewable tablet Chew 1 tablet (81 mg total) 1 (one) time each day. 10/26/2024 11/08/2024 atorvastatin (LIPITOR) 40 mg tablet Take 1 tablet (40 mg total) by mouth at bedtime. 11/08/2024 clopidogreL (PLAVIX) 75 mg tablet Take [...] Do not crush or chew. 10/26/2024 11/08/2024 pantoprazole (PROTONIX) 40 mg EC tablet Take 1 tablet (40 mg total) by mouth 1 (one) time each day before breakfast. Do not crush, chew, or split. 10/26/2024 11/08/2024 traZODone (DESYREL) 150 mg tablet Take 1 tablet (150 mg total) by mouth at bedtime. 11/08/2024 carvediloL (COREG) 25 mg tablet Take 1 tablet (25 mg total) by mouth 2 (two) times a day. Stop Taking at Discharge 11/08/2024 acetaminophen (TYLENOL) 500 mg tablet Take 2 tablets (1,000 mg total) by mouth every 8 (eight) hours if needed for mild pain. Stop Taking at Discharge 11/08/2024 albuterol HFA (PROAIR HFA ; PROVENTIL HFA ; VENTOLIN HFA) 90 mcg/actuation inhaler Inhale 2 puffs by mouth 4 (four) times a day if needed for wheezing. Stop Taking at Discharge 11/08/2024 amLODIPine (NORVASC) 10 mg tablet Take 1 tablet (10 mg total) by mouth 1 (one) time each day. Stop Taking at Discharge 10/26/2024 11/08/2024 gabapentin (NEURONTIN) 800 mg tablet Take 1 tablet (800 mg total) by mouth 3 (three) times a day. Stop Taking at Discharge 11/08/2024 sacubitriL-valsartan (Entresto) 97-103 mg per tablet Take 1 tablet by mouth 2 (two) times a day. Stop Taking at Discharge 11/08/2024 documented as of this encounter Historical Medications * This list may reflect changes made after this encounter. Medication Sig Dispensed Refills Start Date End Date budesonide-formoteroL (SYMBICORT) 80-4.5 mcg/actuation inhaler Inhale 2 puffs by mouth 2 (two) times a day. Rinse mouth with water after use to reduce aftertaste and incidence of candidiasis. Do not swallow. umeclidinium (INCRUSE ELLIPTA) 62.5 mcg/actuation inhalation Inhale 1 puff by mouth 1 (one) time each day. traZODone (DESYREL) 150 mg tablet Take 1 tablet (150 mg total) by mouth at bedtime. 11/08/2024 sacubitriL-valsartan (Entresto) 97-103 mg per tablet Take 1 tablet by mouth 2 (two) times a day. 11/08/2024 pantoprazole (PROTONIX) 40 mg EC tablet Take 1 tablet (40 mg total) by mouth 1 (one) time each day before breakfast. Do not crush, chew, or split. 10/26/2024 11/08/2024 gabapentin (NEURONTIN) 800 mg tablet Take 1 tablet (800 mg total) by mouth 3 (three) times a day. 11/08/2024 Jardiance 10 mg tablet Take 1 tablet (10 mg total) by mouth 1 (one) time each day. 10/26/2024 10/25/2024 DULoxetine (CYMBALTA) [address] capsule Take 1 capsule (60 mg total) by mouth 1 (one) time each day. Do not crush or chew. 10/26/2024 11/08/2024 docusate sodium (COLACE) 100 mg capsule Take 1 capsule (100 mg total) by mouth 2 (two) times a day. 11/08/2024 clopidogreL (PLAVIX) 75 mg tablet Take 1 tablet (75 mg total) by mouth 1 (one) time each day. 10/26/2024 11/08/2024 atorvastatin (LIPITOR) 40 mg tablet Take 1 tablet (40 mg total) by mouth at bedtime. 11/08/2024 aspirin 81 mg chewable tablet Chew 1 tablet (81 mg total) 1 (one) time each day. 10/26/2024 11/08/2024 amLODIPine (NORVASC) 10 mg tablet Take 1 tablet (10 mg total) by mouth 1 (one) time each day. 10/26/2024 11/08/2024 albuterol HFA (PROAIR HFA ; PROVENTIL HFA ; VENTOLIN HFA) 90 mcg/actuation inhaler Inhale 2 puffs by mouth 4 (four) times a day if needed for wheezing. 11/08/2024 acetaminophen (TYLENOL) 500 mg tablet Take 2 tablets (1,000 mg total) by mouth every 8 (eight) hours if needed for mild pain. 11/08/2024 ferrous sulfate 325 mg (65 mg elemental iron) tablet Take 1 tablet (325 mg total) by mouth 1 (one) time each day. 11/08/2024 carvediloL (COREG) 25 mg tablet Take 1 tablet (25 mg total) by mouth 2 (two) times a day. 11/08/2024 added in this encounter Active and Recently Administered Medications Times are shown in EST. Scheduled Medication Order 11/06/2024 11/07/2024 11/08/2024 aspirin chewable tablet 81 mg 81 mg, oral, Daily, First dose on Thu10/26/24 at 0900, Indication: VTE/PE Prophylaxis 0806 (Given - Provider: Vick Blanco RN) 0952 (Given - Provider: Carol Martínez RN) 913 (Given - Provider: Carol Martínez RN) atorvastatin (LIPITOR) tablet 40 mg 40 mg, oral, Nightly, First dose on Thu10/25/24 at 2100 2009 (Given - Provider: Felicity Scott, MARGARITA) 2125 (Given - Provider: Leeanna Garcia, MARGARITA) budesonide (PULMICORT) 1 mg/2 mL nebulizer solution 0.5 mg(Linked Group 1) 0.5 mg, nebulization, Daily, First dose on Thu10/25/24 at 1600, Rinse mouth with water after use to reduce aftertaste and incidence of candidiasis. Do not swallow. Therapeutic substitution for SYMBICORT 80/4.5 is budesonide neb daily and formoterol neb twice daily. 08 (Given - Provider: Vick Blanco RN) 950 (Given - Provider: Carol Martínez RN - Comment: nurse in other opts room.) 904 (Given - Provider: Carol Martínez RN - Comment: am meal) clopidogreL (PLAVIX) tablet 75 mg 75 mg, oral, Daily, First dose on Thu10/26/24 at 0900, Indications: CVA 08 (Given - Provider: Vick Blanco RN) 951 (Given - Provider: Carol Martínez RN) 912 (Given - Provider: Carol Martínez, MARGARITA) docusate sodium (COLACE) capsule 100 mg 100 mg, oral, 2 times daily, First dose on Thu10/25/24 at 2100 0806 (Not Given - Provider: Vick Blanco RN - Reason: Patient/Resident/Ag ent refused - education provided )2014 (Not Given - Provider: Felicity Scott RN - Reason: Patient/Resident/Ag ent refused - education provided ) 951 (Given - Provider: Carol Martínez RN)2126 (Not Given - Provider: Leeanna Garcia RN - Reason: Patient/Resident/Agent refused - education provided ) 913 (Not Given - Provider: Carol Martínez RN - Reason: Patient/Resident/Agent refused - education provided ) DULoxetine (CYMBALTA) DR capsule 60 mg 60 mg, oral, Daily, First dose on Thu10/26/24 at 0900, Do not crush or chew. 805 (Given - Provider: Vick Blanco RN) 950 (Given - Provider: Carol Martínez, MARGARITA) 912 (Given - Provider: Carol Martínez, MARGARITA) ferrous sulfate tablet 325 mg 325 mg, oral, Daily, First dose on Thu10/25/24 at 1600, Take on an empty stomach with a full glass of water, at least 1 hour before or 2 hours after a meal. May be taken with food if causes an upset stomach. Avoid taking antacids or antibiotics within 2 hours before or after. Ordered as ferrous sulfate. 325 mg ferrous sulfate = 65 mg elemental iron. 805 (Given - Provider: Vick Blanco RN) 951 (Given - Provider: Carol Martínez RN) 912 (Given - Provider: Carol Martínez, MARGARITA) formoterol (PERFOROMIST) 20 mcg/2 mL nebulizer solution 20 mcg(Linked Group 1) 20 mcg, nebulization, 2 times daily, First dose on Thu10/25/24 at 2100, Therapeutic substitution for SYMBICORT 80/4.5 is budesonide neb daily and formoterol neb twice daily. 08 (Given - Provider: Vick Blanco RN)2009 (Given - Provider: Felicity Scott RN) 950 (Given - Provider: Carol Martínez, MARGARITA)2131 (Given - Provider: Leeanna Garcia, MARGARITA) 904 (Given - Provider: Carol Martínez, MARGARITA) gabapentin (NEURONTIN) capsule 400 mg 400 mg, oral, Every 8 hours scheduled, First dose (after last modification) on Thu10/28/24 at 1400 0522 (Given - Provider: Felicity Scott, MARGARITA)142 (Given - Provider: Vick Blanco RN)2015 (Given - Provider: Felicity Scott RN - Comment: pt wants all hs meds now to go to bed) 0510 (Given - Provider: Felicity Scott RN)1400 (Canceled Entry - Provider: Automatic Discharge Provider - Comment: Automatically canceled at discontinue of medication order)2129 (Given - Provider: Leeanna Garcia RN) 0506 (Given - Provider: Katt Garg, MARGARITA)1400 (Canceled Entry - Provider: Automatic Discharge Provider - Comment: Automatically canceled at discontinue of medication order) lidocaine 4 % patch 1 patch 1 patch, Topical, Administer over 12 Hours, Daily, First dose on Thu10/26/24 at 1315, Apply to right anterior shoulder (pain site). Apply in am, remove at bedtime.. 08 (Patch Applied - Provider: Vick Blanco RN)2014 (Patch Removed - Provider: Felicity Scott RN) 09 (Canceled Entry - Provider: Automatic Discharge Provider - Comment: Automatically canceled at discontinue of medication order) 09 (Patch Applied - Provider: Carol Martínez RN - Comment: right shoulder)1135 (Due: Patch Removed - Provider: Automatic Discharge Provider - Comment: Time automatically adjusted from order being discontinued) pantoprazole (PROTONIX) EC tablet 40 mg 40 mg, oral, Every morning before breakfast, First dose on Thu10/26/24 at 0700, Do not crush, chew, or split. 0524 (Given - Provider: Felicity Scott RN) 0510 (Given - Provider: Felicity Scott RN) 0506 (Given - Provider: Katt Garg RN) senna (SENOKOT) tablet 17.2 mg 17.2 mg (2 tablet), oral, Nightly, First dose on Thu10/29/24 at 2099 2014 (Not Given - Provider: Felicity Scott RN - Reason: Patient/Resident/Ag ent refused - education provided ) 2130 (Not Given - Provider: Leeanna Garcia RN - Reason: Patient/Resident/Agent refused - education provided ) traZODone (DESYREL) tablet 150 mg 150 mg, oral, Nightly, First dose on Thu10/25/24 at 2099 2014 (Given - Provider: Felicity Scott RN) 2127 (Given - Provider: Leeanna Garcia, MARGARITA) PRN Medication Order 11/06/2024 11/07/2024 11/08/2024 acetaminophen (TYLENOL) tablet 1,000 mg 1,000 mg, oral, Every 8 hours PRN, mild pain, Starting on Thu10/25/24 at 1537 albuterol 2.5 mg /3 mL (0.083 %) nebulizer solution 2.5 mg 2.5 mg, nebulization, Every 6 hours PRN, wheezing, Starting on Thu10/25/24 at 1537 magnesium hydroxide (MILK OF MAGNESIA) 400 mg/5 mL suspension 30 mL 30 mL, oral, Nightly PRN, constipation, Starting on Thu10/27/24 at 1430, Follow dose with 8 oz of water. oxyCODONE (ROXICODONE) immediate release tablet 2.5 mg 2.5 mg, oral, Every 4 hours PRN, moderate pain, severe pain, prn shoulder pain., Starting on Thu10/26/24 at 1551 0523 (Given - Provider: Felicity Scott, MARGARITA)1136 (Given - Provider: Vick Blanco RN)2010 (Given - Provider: Felicity Scott, MARGARITA) 0509 (Given - Provider: Felicity Scott, RN)2137 (Given - Provider: Leeanna Garcia RN) Linked Groups Order Group 1: budesonide (PULMICORT) 1 mg/2 mL nebulizer solution 0.5 mgJump to med 0.5 mg, nebulization, Daily, First dose on Thu10/25/24 at 1600, Rinse mouth with water after use to reduce aftertaste and incidence of candidiasis. Do not swallow. Therapeutic substitution for SYMBICORT 80/4.5 is budesonide neb daily and formoterol neb twice daily. And formoterol (PERFOROMIST) 20 mcg/2 mL nebulizer solution 20 mcgJump to med 20 mcg, nebulization, 2 times daily, First dose on Thu10/25/24 at 2100, Therapeutic substitution for SYMBICORT 80/4.5 is budesonide neb daily and formoterol neb twice daily. documented in this encounter Orders Medications Ordered That Ubaldo ht Not Have Been Administered Count Last Ordered Date First Ordered Date carvediloL (COREG) tablet 6.25 mg carvediloL (COREG) tablet 12.5 mg 025 gabapentin (NEURONTIN) capsule 500 mg 05/2025 gabapentin (NEURONTIN) capsule 800 mg 05/2025 sacubitriL-valsartan (ENTRES TO) 24-26 mg per tablet 1 tablet 1 10/26/2024 albuterol 2.5 mg /3 mL (0.08 3 %) nebulizer solution 2.5 mg 1 10/25/2024 amLODIPine (NORVASC) tablet 10 mg 1 025 dextrose (D50W) 50% injection 12.5 g 1 04/2025 dextrose (D50W) 50% injection 25 g 1 2024 dextrose 15 gram/60 mL oral solution 15 g 1 10/25/2024 dextrose 15 gram/60 mL oral solution 30 g 1 10/25/2024 Glucagon HCl (rDNA) injection 1 mg 1 2024 Lab Orders Without Results Count Last Ordered D ate First Ordered Date POCT GLUCOSE, BLOOD 44 11/06/2024 10/25/19 Consult Count Last Ordered Date First Orde red Date IP CONSULT TO NUTRITION SERVICES 1 11/02/19 25 APARTMENT LEASING AGENT Count Last Ordered Date First Orde red Date APARTMENT LEASING AGENT EVAL AND TREAT 1 10/25/2024 Admission Count Last Ordered Date First Orde red Date ADMIT TO INPATIENT REHAB 1 10/25/2024 Discharge Count Last Ordered Date First Orde red Date DISCHARGE PATIENT 1 11/08/2024 documented in this encounter Additional Health Concerns Assessment Noted Time PHQ-9 Depression Total Score: 11/07/19 4:11 PM EST documented as of this encounter Care Teams [employer] Relationship Specialty Start Date End Date Sheree Strong FNP [address] [place] [id number] PCP - General Nurse Practitioner 10/24/24 documented as of this encounter
--- OUTSIDE RECORDS SUMMARY | 2024-11-11 13:47 | XMS_ITS | Clinical Summary ---
Demographics Address [address] [place] [address] Mobile Phone Preferred Language en Marital Status Advent Affiliation Unknown Race Other Race Ethnic Group or Author Organization [facility] Address [address] [place] [address] Phone Care Team Providers Care Associate Director Of Sales Name Role Phone TaeSheree BISHOP Primary Care Provider [phone] Allergies No known active allergies Medications Medication Sig Dispensed Refills Start Date End Date Status budesonide-formoter oL (SYMBICORT) 80-4.5 mcg/actuation inhaler Inhale 2 puffs by mouth 2 (two) times a day. Rinse mouth with water after use to reduce aftertaste and incidence of candidiasis. Do not swallow. Active aspirin 81 mg chewable tabletIndications:p revention of cerebrovascular accident Chew 1 tablet (81 mg total) 1 (one) time each day. 30 each 5 12/08/19 25 Active atorvastatin (LIPITOR) 40 mg tablet Take 1 tablet (40 mg total) by mouth at bedtime. 30 each 5 12/08/19 25 Active clopidogreL (PLAVIX) 75 mg tabletIndications:c erebral thromboembolism prevention Take 1 tablet (75 mg total) by mouth 1 (one) time each day. 30 each 5 12/08/19 25 Active docusate sodium (COLACE) 100 mg capsule Take 1 capsule (100 mg total) by mouth 2 (two) times a day. 60 each 5 12/08/19 25 Active DULoxetine (CYMBALTA) [address] capsule Take 1 capsule (60 mg total) by mouth 1 (one) time each day. Do not crush or chew. 30 each 5 12/08/19 25 Active ferrous sulfate 325 mg (65 mg elemental iron) tablet Take 1 tablet (325 mg total) by mouth 1 (one) time each day. 30 each 5 12/08/19 25 Active gabapentin (NEURONTIN) 400 mg capsule Take 1 capsule (400 mg total) by mouth every 8 (eight) hours. 90 each 5 12/08/19 25 Active pantoprazole (PROTONIX) 40 mg EC tablet Take 1 tablet (40 mg total) by mouth 1 (one) time each day before breakfast. Do not crush, chew, or split. 30 each 5 12/08/19 25 Active traZODone (DESYREL) 150 mg tablet Take 1 tablet (150 mg total) by mouth at bedtime. 30 each 5 12/08/19 25 Active lidocaine 4 % patch Apply 1 patch topically 1 (one) time each day. Right shoulder pain. 30 each 5 12/08/19 25 Active oxyCODONE (ROXICODONE) 5 mg immediate release tablet Take 0.5 tablets (2.5 mg total) by mouth 2 (two) times a day if needed for severe pain for up to 7 days. Max Daily Amount: 5 mg 7 tablet 5 11/15/19 25 Active senna (SENOKOT) 8.6 mg tablet Take 2 tablets (17.2 mg total) by mouth at bedtime. 60 each 5 12/08/19 25 Active carvediloL (COREG) 25 mg tablet Take 1 tablet (25 mg total) by mouth 2 (two) times a day. 11/08/19 25 Discontinued(Sto p Taking at Discharge) ferrous sulfate 325 mg (65 mg elemental iron) tablet Take 1 tablet (325 mg total) by mouth 1 (one) time each day. 11/08/19 25 Discontinued acetaminophen (TYLENOL) 500 mg tablet Take 2 tablets (1,000 mg total) by mouth every 8 (eight) hours if needed for mild pain. 11/08/19 25 Discontinued(Sto p Taking at Discharge) albuterol HFA (PROAIR HFA ; PROVENTIL HFA ; VENTOLIN HFA) 90 mcg/actuation inhaler Inhale 2 puffs by mouth 4 (four) times a day if needed for wheezing. 11/08/19 Discontinued(Sto p Taking at Discharge) amLODIPine (NORVASC) 10 mg tablet Take 1 tablet (10 mg total) by mouth 1 (one) time each day. 11/08/19 Discontinued(Sto p Taking at Discharge) aspirin 81 mg chewable tablet Chew 1 tablet (81 mg total) 1 (one) time each day. 5 11/08/19 Discontinued atorvastatin (LIPITOR) 40 mg tablet Take 1 tablet (40 mg total) by mouth at bedtime. 11/08/19 Discontinued clopidogreL (PLAVIX) 75 mg tablet Take 1 tablet (75 mg total) by mouth 1 (one) time each day. 11/08/19 Discontinued docusate sodium (COLACE) 100 mg capsule Take 1 capsule (100 mg total) by mouth 2 (two) times a day. 11/08/19 Discontinued DULoxetine (CYMBALTA) [address] capsule Take 1 capsule (60 mg total) by mouth 1 (one) time each day. Do not crush or chew. 11/08/19 Discontinued Jardiance 10 mg tablet Take 1 tablet (10 mg total) by mouth 1 (one) time each day. 10/25/19 Discontinued(For mulary change) gabapentin (NEURONTIN) 800 mg tablet Take 1 tablet (800 mg total) by mouth 3 (three) times a day. 11/08/19 Discontinued(Sto p Taking at Discharge) pantoprazole (PROTONIX) 40 mg EC tablet Take 1 tablet (40 mg total) by mouth 1 (one) time each day before breakfast. Do not crush, chew, or split. 5 11/08/19 Discontinued sacubitriL-valsarta n (Entresto) 97-103 mg per tablet Take 1 tablet by mouth 2 (two) times a day. 11/08/19 Discontinued(Sto p Taking at Discharge) traZODone (DESYREL) 150 mg tablet Take 1 tablet (150 mg total) by mouth at bedtime. 01/21/20 25 Discontinued umeclidinium (INCRUSE ELLIPTA) 62.5 mcg/actuation inhalation Inhale 1 puff by mouth 1 (one) time each day. 10/25/19 25 Discontinued(For mulary change) Active Problems Problem Noted Date Diagnosed Date Noncompliance 10/29/2024 HTN (hypertension) 10/29/2024 Stroke 10/25/2024 Diabetes 10/25/2024 CVA (cerebral vascular accident) 10/25/2024 Resolved Problems Problem Noted Date Diagnosed Date Resolved Date TIA (transient ischemic attack) 10/29/2024 11/08/2024 Encounters Date Type Department Care Team Description 11/07/2024 Plan of Care Documentation [facility] Inpatient Rehab [address] [place] [phone] 11/03/2024 12:50 PM EST - 11/03/2024 9:01 PM EST Emergency [facility] Emergency [address] [place] [address] Elijah Broderick MD Cheng, Ting Ho Danny, DO Left facial numbness (Primary Dx); Cerebrovascular accident (CVA), unspecified mechanism (CMS/HCC) Discharge Disposition: Home or Self Care 10/31/2024 Plan of Care Documentation [facility] Inpatient [facility] [address] [place] [phone] 10/25/2024 1:27 PM EST - 11/08/2024 11:35 AM EST Hospital Encounter [facility]patient [facility] [address] [place] [phone] Juliann Man DO Cerebrovascular accident (CVA), unspecified mechanism (CMS/HCC) (Primary Dx) Discharge Disposition: Home or Self Care from Last 3 Months Social History Tobacco Use Types Packs/Day Years [...] file Not on file Not on file Obstetrics History Last Filed Vital Signs Vital Sign Reading [...] oz) 11/05/2024 9:00 A M EST Height 160 cm (5' 2.99 ) 11/03/2024 12:45 PM EST Body Mass Index 20.09 11/03/2024 12:45 PM EST Plan of Treatment Upcoming Encounters Date Type Department Care Team (Late st Contact Info) Description 11/16/2024 2:30 PM EST Evaluation [facility] [address] [phone] Lore Cortes, PT 11/23/2024 2:30 PM EST Treatment [facility] [address] [phone] Lore Cortes, PT 11/28/2024 12:45 PM EST Treatment [facility] [address] [phone] Deysi Grijalva, ROGER 11/30/2024 10:30 AM EST Evaluation [facility] Speech Therapy [address] [phone] Alea Trejo, BENEDICT 12/07/2024 10:45 AM EST Treatment [facility] Speech Therapy [address] [phone] Alea Trejo PHOTOGRAPHY TEACHER 12/14/2024 10:45 AM EST Treatment [facility] Speech Therapy [address] [phone] Alea Trejo, PHOTOGRAPHY TEACHER Health Maintenance Due Date Last Done Comments COVID-19 Vaccine (#1) 1965 Diabetes: Annual Foot Exam 1970 Diabetes: Annual Retina Eye Exam 1970 Cervical Cancer Screening: Pap Smear 1981 Pneumococcal Vaccine: Pediatrics (0 to 5 Years) and At-Risk Patients (6 to 64 Years) (2 of 2 - PPSV23 or PCV20) 07/31/1997 06/05/1997 Zoster Vaccines (1 of 2) 2010 Breast Cancer Screening 08/26/2020 08/26/2018 RSV Immunization Patients 60+ Years Old (1 - Risk 60-74 years 1-dose series) 2020 DTaP,Tdap,and Td Vaccines (3 - Td or Tdap) 01/10/2023 01/10/2013, 04/24/2006 Diabetes: Annual Urine Albumin-Creatinine Ratio (uACR) 11/16/2024 11/16/2023, 11/16/2023, 07/14/2023 Diabetes: Blood Sugar Control Test (HGBA1C) 04/25/2025 10/26/2024, 09/06/2024 Diabetes: Annual GFR (Glomerular Filtration Rate) 11/03/2025 11/03/2024, 10/29/2024, 10/26/2024, Additional history exists Hypertension/CHF/CAD Annual BMP Blood Test 11/03/2025 11/03/2024, 10/29/2024, 10/26/2024, Additional history exists Depression Screening 11/07/2025 11/07/2024 Social Influencers of Health Screening 11/07/2025 11/07/2024 Colorectal Cancer Screening: FIT-DNA (Cologuard) 10/04/2026 10/04/2023, 10/04/2023 Cholesterol Screening (Lipid Panel) 09/06/2029 09/06/2024, 07/08/2023 Hepatitis A Vaccines Aged Out 04/17/2015, 10/05/20 13 No longer eligible based on patient's age to complete this topic Hepatitis B Vaccines Completed 12/18/2016, 03/14/2016, 08/02/2015 Influenza Vaccine Completed 07/09/2024, , 10/16/2014, Additional history exists HIV Screening Completed 09/06/2024 Hepatitis C Screening Completed 09/06/2024 HIB Vaccines Aged Out No longer eligi ble based on patient's age to complete this topic HPV Vaccines Aged Out No longer eligi ble based on patient's age to complete this topic IPV Vaccines Aged Out No longer eligi ble based on patient's age to complete this topic MMR Vaccines Aged Out No longer eligi ble based on patient's age to complete this topic Meningococcal ACWY Vaccine Aged Out N o longer eligible based on patient's age to complete this topic RSV Immunization Patients Under 20 months Aged Out No longer eligible based on patient's age to complete this topic Varicella Vaccines Aged Out No longer eligible based [...] BLOOD Routine 11/04/2024 7: 32 AM EST POCT GLUCOSE BLOOD Routine 11/03/2024 9: 42 PM EST TROPONIN I HIGH SENSITIVITY STAT 11/03/2024 7:24 PM EST MR BRAIN WO CONTRAST STAT 11/03/2024 6:56 PM EST XR CHEST 1 VIEW STAT 11/03/2024 4:08 PM EST MAGNESIUM Add-On 11/03/2024 2:02 PM EST PROLACTIN STAT Add-on 11/03/2024 2:02 PM EST CBC WITH AUTO DIFFERENTIAL STAT 11/03/2024 2:02 PM EST COMPREHENSIVE METABOLIC PANEL STAT 11/03/2024 2:02 PM EST PROTHROMBIN TIME WITH INR STAT 11/03/2024 2:02 PM EST ACTIVATED PARTIAL THROMBOPLASTIN TIME STAT 11/03/2024 2:02 PM EST CBC AND DIFFERENTIAL STAT 11/03/2024 2:[address] ANGIO HEAD/NECK STROKE WO AND/OR W CONTRAST STAT 11/03/2024 1:42 PM EST ECG 12-LEAD STAT 11/03/2024 1:23 PM EST ND CRITICAL CARE 30-74 MINUTES Routine 11/03/2024 12:[address] HEAD STROKE WO CONTRAST STAT 11/03/2024 12:40 PM EST ECG 12-LEAD Routine 11/03/2024 12:07 PM EST POCT GLUCOSE BLOOD Routine 11/03/2024 12 :01 PM EST POCT GLUCOSE BLOOD Routine 11/03/2024 11 :05 AM EST POCT GLUCOSE BLOOD Routine 11/03/2024 7: 20 AM EST ECG ANNOTATED 11/03/2024 ECG ANNOTATED 11/03/2024 POCT GLUCOSE BLOOD Routine 11/02/2024 8: 02 [...] BLOOD Routine 10/26/2024 7: 21 AM EST HEMOGLOBIN A1C Routine 10/26/2024 6:38 AM EST CBC WITH AUTO DIFFERENTIAL Routine 10/26/2024 6:38 AM EST COMPREHENSIVE METABOLIC PANEL Routine 10/26/2024 6:38 AM EST CBC AND DIFFERENTIAL Routine 10/26/2024 6:38 AM EST POCT GLUCOSE BLOOD Routine 10/25/2024 8: 31 PM EST POCT GLUCOSE BLOOD Routine 10/25/2024 4: 24 PM EST from Last 3 Months Results * Routine EEG (11/07/2024 12:18 PM [...] POCT Glucose, blood (11/07/2024 7:18 AM EST) Only the most recent of50 resultswithin the time period is included. Glucose POCT 96 70 - 100 mg/dL 11/07/2024 7:19 AM EST [facility] Blood Capillary blood specimen / Unknown 11/07/2024 7:18 AM EST 11/07/2024 7:21 AM EST Juliann Man DO LAB POINT OF CARE TEST DOCKED DEVICE UNSOLICITED RESULTS Performing Organization Address [facility]/ZIP Co de Phone Number [facility] [address] [place] [address], * Troponin I high sensitivity (NOW and then in 1 hour) (11/03/2024 7:24 PM EST) [facility] High Sensitivity Troponin I 7 <=54 ng/L LAB CHEMISTRY METHOD 11/03/2024 8:21 PM EST [facility] Blood Venous blood specimen / Unknown Venipuncture / Unknown 11/03/2024 7:24 PM EST 11/03/2024 7:47 PM EST Narrative [facility] - 11/03/2024 8:21 PM EST High levels of biotin in samples may falsely decrease hsTroponin values. ??Use caution when interpreting hsTroponin results in patients taking biotin who exhibit renal impairment (eGFR <60) or in patients taking more than 20 mg/day of biotin. Fernanda EATON LAB BLOOD ORDERABLES Performing Organization Address [facility]/ZIP Co de Phone Number [facility] [address] [place] [address], [place] [phone] * MR Brain wo Contrast (11/03/2024 6:56 [...] EST No evidence of active pulmonary disease. [id number] -------- FINAL REPORT -------- Dictated By: Dell Abraham Dictated Date: 11/03/2024 16:23 ET Assigned Physician: Dell Abraham Reviewed and Electronically Signed By: Dell Abraham Signed Date: 11/03/2024 16:23 ET Workstation ID: [id number] Transcribed By: Self Edit Transcribed Date: 11/03/2024 [...] IMPRESSION: No evidence of active pulmonary disease. [id number] -------- FINAL REPORT -------- Dictated By: Dell Abraham Dictated Date: 11/03/2024 16:23 ET Assigned Physician: Dell Abraham Reviewed and Electronically Signed By: Dell Abraham Signed Date: 11/03/2024 16:23 ET Workstation ID: [id number] Transcribed By: Self Edit Transcribed Date: 11/03/2024 16:23 ET Fernanda EATON IMG XR PROCEDURES * (ABNORMAL) CBC auto differential (11/03/2024 2:02 PM EST) Only the most recent of2 resultswithin the time period is included. WBC 6.9 4.8 - 10.8 K/[facility] LAB HEMETOLOGY METHOD 11/03/2024 2:13 PM EST [facility] RBC 4.60 3.80 - 4.80 M/[facility] LAB HEMETOLOGY METHOD 11/03/2024 2:13 PM [facility] Hemoglobin 11.0(L) 11.5 - 16.0 g/dL LAB HEMETOLOGY METHOD 11/03/2024 2:13 PM [facility] Hematocrit 36.1 35.0 - 47.0 % LAB HEMETOLOGY METHOD 11/03/2024 2:13 PM [facility] MCV 79.2 79.0 - 98.0 FL LAB HEMETOLOGY METHOD 11/03/2024 2:13 PM [facility] MCH 24.1(L) 27.0 - 32.0 pcg LAB HEMETOLOGY METHOD 11/03/2024 2:13 PM [facility] MCHC 30.5(L) 32.0 - 37.0 g/dL LAB HEMETOLOGY METHOD 11/03/2024 2:13 PM [facility] RDW 17.0(H) 11.0 - 15.0 % LAB HEMETOLOGY METHOD 11/03/2024 2:13 PM [facility] Platelets 224 130 - 400 K/mcL LAB HEMETOLOGY METHOD 11/03/2024 2:13 PM [facility] MPV 10.1 7.0 - 11.0 FL LAB HEMETOLOGY METHOD 11/03/2024 2:13 PM [facility] NRBC 0.0 <1.0 % LAB HEMETOLOGY METHOD 11/03/2024 2:13 PM [facility] NRBC Absolute 0.00 <0.10 K/mcL LAB HEMETOLOGY METHOD 11/03/2024 2:13 PM [facility] Neutrophils Relative 49.9 % LAB HEMETOLOGY METHOD 11/03/2024 2:13 PM [facility] Lymphocytes Relative 36.7 % LAB HEMETOLOGY METHOD 11/03/2024 2:13 PM [facility] Monocytes Relative 9.9 % LAB HEMETOLOGY METHOD 11/03/2024 2:13 PM EST [facility] Eosinophils Relative 2.0 % LAB HEMETOLOGY METHOD 11/03/2024 2:13 PM [facility] Basophils Relative 0.3 % LAB HEMETOLOGY METHOD 11/03/2024 2:13 PM [facility] Immature Granulocytes Relative 1.2 % LAB HEMETOLOGY METHOD 11/03/2024 2:13 PM [facility] Neutrophils Absolute 3.43 1.50 - 7.00 K/mcL LAB HEMETOLOGY METHOD 11/03/2024 2:13 PM [facility] Lymphocytes Absolute 2.52 1.00 - 5.00 K/mcL LAB HEMETOLOGY METHOD 11/03/2024 2:13 PM [facility] Monocytes Absolute 0.68 0.20 - 1.00 K/mcL LAB HEMETOLOGY METHOD 11/03/2024 2:13 PM EST [facility] Eosinophils Absolute 0.14 0.00 - 0.50 K/mcL LAB HEMETOLOGY METHOD 11/03/2024 2:13 PM EST [facility] Basophils Absolute 0.02 0.00 - 0.20 K/mcL LAB HEMETOLOGY METHOD 11/03/2024 2:13 PM [facility] Immature Granulocytes Absolute 0.08(H) 0.00 - 0.03 K/mcL LAB HEMETOLOGY METHOD 11/03/2024 2:13 PM [facility] Blood Venous blood specimen / Unknown Venipuncture / Unknown 11/03/2024 2:02 PM EST 11/03/2024 2:10 PM EST Fernanda EATON LAB BLOOD ORDERABLES [facility] [address] [place] [address], * Prolactin (11/03/2024 2:02 PM EST) Prolactin 7.40 See Comment ng/mL LAB CHEMISTRY METHOD 11/04/2024 1:00 PM EST [facility] Comment: Prolactin Reference Ranges (ng/mL) ??Non ?2.2 - ??30.3 ? 8.1 - 347.6 ??Postmenopausal 0.7 - ??31.5 Blood Venous blood specimen / Unknown Venipuncture / Unknown 11/03/2024 2:02 PM EST 11/03/2024 2:10 PM EST Trenton EATON LAB BLOOD ORDERABLES Performing Organization Address [facility]/ZIP Co de Phone Number [facility] [address] [place] [address], * APTT (11/03/2024 2:02 PM EST) Pathologist [facility] aPTT 29.6 24.1 - 39.3 sec LAB COAGULATION METHOD 11/03/2024 2:22 PM EST [facility] Blood Venous blood specimen / Unknown Venipuncture / Unknown 11/03/2024 2:02 PM EST 11/03/2024 2:10 PM EST Fernanda EATON LAB BLOOD ORDERABLES [facility] [address] [place] [address], [place] [phone] * Protime-INR (11/03/2024 2:02 PM EST) Protime 12.0 10.6 - 13.9 sec LAB COAGULATION METHOD 11/03/2024 2:22 PM EST [facility] INR 1.0 LAB COAGULATION METHOD 11/03/2024 2:22 PM EST [facility] Blood Venous blood specimen / Unknown Venipuncture / Unknown 11/03/2024 2:02 PM EST 11/03/2024 2:10 PM EST Fernanda EATON LAB BLOOD ORDERABLES Performing Organization Address [facility]/ZIP Co de Phone Number [facility] [address] [place] [address], * Magnesium (11/03/2024 2:02 PM EST) Magnesium 1.9 1.9 - 2.6 mg/dL LAB CHEMISTRY METHOD 11/04/2024 12:59 PM [facility] Blood Venous blood specimen / Unknown Venipuncture / Unknown 11/03/2024 2:02 PM EST 11/03/2024 2:10 PM EST Trenton EATON LAB BLOOD ORDERABLES Performing Organization Address [facility]/ZIP Co de Phone Number [facility] [address] [place] [address], [place] [phone] * Comprehensive metabolic panel (11/03/2024 2:02 PM EST) Only the most recent of3 resultswithin the time period is included. Sodium 134 133 - 145 mmol/L LAB CHEMISTRY METHOD 11/03/2024 2:45 PM [facility] Potassium 4.1 3.5 - 5.5 mmol/L LAB CHEMISTRY METHOD 11/03/2024 2:45 PM [facility] Chloride 102 96 - 110 mmol/L LAB CHEMISTRY METHOD 11/03/2024 2:45 PM [facility] CO2 27 21 - 32 mmol/L LAB CHEMISTRY METHOD 11/03/2024 2:45 PM [facility] Anion Gap 5 3 - 11 LAB CHEMISTRY METHOD 11/03/2024 2:45 PM [facility] Glucose 93 70 - 100 mg/dL LAB CHEMISTRY METHOD 11/03/2024 2:45 PM [facility] BUN 23 5 - 25 mg/dL LAB CHEMISTRY METHOD 11/03/2024 2:45 PM [facility] Creatinine 0.80 0.50 - 1.10 mg/dL LAB CHEMISTRY METHOD 11/03/2024 2:45 PM [facility] eGFR 83 >=60 mL/min/1. 73m2 LAB CHEMISTRY METHOD 11/03/2024 2:45 PM [facility] Comment:Calculation based on the??Chronic Kidney Disease Epidemiology Collaboration (CKD-EPI) equation refit??without adjustment for race. BUN/Creatinine Ratio 28.8 LAB CHEMISTRY METHOD 11/03/2024 2:45 PM [facility] Calcium 8.6 8.5 - 10.5 mg/dL LAB CHEMISTRY METHOD 11/03/2024 2:45 PM [facility] AST (SGOT) 20 10 - 42 unit/L LAB CHEMISTRY METHOD 11/03/2024 2:45 PM [facility] ALT (SGPT) 28 10 - 60 unit/L LAB CHEMISTRY METHOD 11/03/2024 2:45 PM [facility] Alkaline Phosphatase 72 42 - 121 unit/L LAB CHEMISTRY METHOD 11/03/2024 2:45 PM [facility] Total Protein 6.3 6.0 - 8.0 g/dL LAB CHEMISTRY METHOD 11/03/2024 2:45 PM [facility] Albumin 3.2 3.2 - 5.0 g/dL LAB CHEMISTRY METHOD 11/03/2024 2:45 PM [facility] Total Bilirubin 0.4 0.0 - 1.4 mg/dL LAB CHEMISTRY METHOD 11/03/2024 2:45 PM [facility] Blood Venous blood specimen / Unknown Venipuncture / Unknown 11/03/2024 2:02 PM EST 11/03/2024 2:10 PM EST Fernanda EATON LAB BLOOD ORDERABLES [facility] [address] [place] [address], [place] [phone] * CT Angio Head/Neck Stroke wo and/or [...] Signed Date: 11/03/2024 14:14 ET Workstation ID: [id number] Transcribed By: Self Edit Transcribed Date: 11/03/2024 [...] reconstructions performed on a computer workstation. Scanner: Jianshu 64slice VCT Dose reduction technique: ASIR (Adaptive [...] reconstructions performed on a computer workstation. Scanner: Jianshu 64slice VCT Dose reduction technique: ASIR (Adaptive [...] Signed Date: 11/03/2024 14:14 ET Workstation ID: [id number] Transcribed By: Self Edit Transcribed Date: 11/03/2024 14:02 ET Fernanda EATON IMG CT PROCEDURES * ECG 12 lead (11/03/2024 1:23 PM EST) Only the most recent of2 resultswithin the time period is included. Ventricular Rate ECG 94 BPM GEMUSE Atrial Rate 94 BPM GEMUSE P-R Interval 130 ms GEMUSE QRS Duration 94 ms GEMUSE Q-T Interval 372 ms GEMUSE QTc 465 ms GEMUSE P Wave [place] 57 degrees GEMUSE R [place] -32 degrees GEMUSE T [place] 74 degrees GEMUSE ECG Interpretation Normal sinus [...] EST Fernanda EATON ECG ORDERABLES GEMUSE * ND CRITICAL CARE 30-74 MINUTES (11/03/2024 12:47 PM EST) Narrative Elijah Broderick MD - 11/03/2024 12:47 PM EST UMA Ryan ? 11/03/2024 ??9:22 PM Critical Care Performed by: UMA Ryan Authorized by: Elijah Broderick MD ?? Critical care provider statement: ??Critical care time (minutes): ??30 ??Critical care was necessary to treat or prevent imminent or life-threatening deterioration of the following conditions: ??DETECTIVE failure or compromise ??Critical care was time [...] Broderick MD IN CLINIC/BEDSIDE O RDERABLES * CT Head Stroke wo Contrast (11/03/2024 12:40 PM EST) Anatomical Region Laterality Modality Head and Neck Computed Tomogra phy 11/03/2024 1:35 PM EST Impressions 11/03/2024 1:38 PM EST No evidence of acute intracranial process on noncontrast head CT. A Critical Document Only message has been documented for the office of [place] BECK in the [employer] Actionable Findings ??system on 11/03/2024 1:38 PM, Message ID [id number]. -------- FINAL REPORT -------- Dictated By: Dell Abraham Dictated Date: 11/03/2024 13:35 ET Assigned Physician: Dell Abraham Reviewed and Electronically Signed By: Dell Abraham Signed Date: 11/03/2024 13:38 ET Workstation ID: [id number] Transcribed By: Self Edit Transcribed Date: 11/03/2024 13:35 ET Narrative 11/03/2024 1:38 PM EST INDICATION: Left-sided weakness and facial numbness Technique: Axial images were obtained from the skull base to the vertex without contrast enhancement. Scanner: Ylopo LightSpeed 64 slice VCT Dose reduction technique: [...] to the vertexwithout contrast enhancement. Scanner: GE TER[employer] MED[employer] COR[employer]ATION[employer]ed 64 slice VCT Dose reduction technique: ASIR [...] message has been documented for the office ofTRENTON BECK in the [employer] system on11/03/2024 1:38 PM, Message ID [id number]. -------- FINAL REPORT -------- Dictated By: Dell Abraham Dictated Date: 11/03/2024 13:35 ET Assigned Physician: Dell Abraham Reviewed and Electronically Signed By: Dell Abraham Signed Date: 11/03/2024 13:38 ET Workstation ID: [id number] Transcribed By: Self Edit Transcribed Date: 11/03/2024 13:35 ET Trenton EATON IMG CT PROCEDURES * ECG-Annotated (11/03/2024) Only the most recent of2 resultswithin the time period is included. Provider Onbase MD ECG ORDERABLES * (ABNORMAL) Complete blood count (10/29/2024 6:03 AM EST) WBC 4.9 4.8 - 10.8 [facility] LAB HEMETOLOGY METHOD 10/29/2024 7:15 AM EST [facility] RBC 4.60 3.80 - 4.80 [facility] LAB HEMETOLOGY METHOD 10/29/2024 7:15 AM EST [facility] Hemoglobin 10.8(L) 11.5 - 16.0 g/dL LAB HEMETOLOGY METHOD 10/29/2024 7:15 AM [facility] Hematocrit 35.7 35.0 - 47.0 % LAB HEMETOLOGY METHOD 10/29/2024 7:15 AM EST [facility] MCV 78.1(L) 79.0 - 98.0 FL LAB HEMETOLOGY METHOD 10/29/2024 7:15 AM [facility] MCH 23.6(L) 27.0 - 32.0 pcg LAB HEMETOLOGY METHOD 10/29/2024 7:15 AM EST [facility] MCHC 30.3(L) 32.0 - 37.0 g/dL LAB HEMETOLOGY METHOD 10/29/2024 7:15 AM [facility] RDW 16.0(H) 11.0 - 15.0 % LAB HEMETOLOGY METHOD 10/29/2024 7:15 AM [facility] Platelets 227 130 - 400 K/mcL LAB HEMETOLOGY METHOD 10/29/2024 7:15 AM EST [facility] MPV 11.0 7.0 - 11.0 FL LAB HEMETOLOGY METHOD 10/29/2024 7:15 AM EST [facility] NRBC 0.0 <1.0 % LAB HEMETOLOGY METHOD 10/29/2024 7:15 AM EST [facility] NRBC Absolute 0.00 <0.10 K/mcL LAB HEMETOLOGY METHOD 10/29/2024 7:15 AM EST [facility] Blood Venous blood specimen / Unknown Venipuncture / Unknown 10/29/2024 6:03 AM EST 10/29/2024 6:41 AM EST [facility] LAB BLOOD ORDERABLES [facility] [address] [place] [address], * XR Shoulder 2+ Views Right (10/26/2024 2:22 PM EST) Anatomical Region Laterality Modality Upper Extremities, Shoulder Right Radi ographic Imaging 10/26/2024 2:24 PM EST Impressions 10/26/2024 2:25 PM EST No shoulder fracture or dislocation. [id number] -------- FINAL REPORT -------- Dictated By: Dell Abraham Dictated Date: 10/26/2024 14:24 ET Assigned Physician: Dell Abraham Reviewed and Electronically Signed By: Dell Abraham Signed Date: 10/26/2024 14:25 ET Workstation ID: [id number] Transcribed By: Self Edit Transcribed Date: 10/26/2024 [...] changes. IMPRESSION: No shoulder fracture or dislocation. [id number] -------- FINAL REPORT -------- Dictated By: Dell Abraham Dictated Date: 10/26/2024 14:24 ET Assigned Physician: Dell Abraham Reviewed and Electronically Signed By: Dell Abraham Signed Date: 10/26/2024 14:25 ET Workstation ID: [id number] Transcribed By: Self Edit Transcribed Date: 10/26/2024 14:24 ET Juliann Man DO IMG XR PROCEDURES * Hemoglobin A1c (10/26/2024 6:38 AM EST) Hemoglobin A1C 6.1 <6.5 % LAB CHEMISTRY METHOD 10/26/2024 1:05 PM EST [facility] Mean Bld Glu Estim. 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 Do not modify or discontinue any currently active code status orders. Healthcare Agents on File Name Relationship Healthcare Agent Relationshi p Communication Dominguez Coppola Health Care Agent Care Teams Associate Director Of Sales Relationship Specialty Start Date End Date Sheree Strong FNP [address] [place] [address] PCP - General Nurse Practitioner 10/24/24
--- OUTSIDE RECORDS SUMMARY | 2024-11-11 13:47 | XMS_ITS | Encounter Summary ---
Demographics Address [address] [place] [address] Work Phone Email Address Preferred Language en Marital Status Jainism Affiliation Unknown Race Other Race Ethnic Group or Author Organization [employer] Address [address] [place] [address] Care Team Providers Care Entry Level Programmer Name Role Phone Sheree Strong LISHA Primary Care Provider [phone] Encounter Details Date Type Department Care Team (Latest Contact Info) Description 11/09/2024 Travel Social History Tobacco Use Types Packs/Day [...] Pests such as bugs, ants, or mice;Lead [place] or Pipes;Inadequate heat 09/06/2024 Food Insecurity Answer [...] Description 11/17/2024 10:00 AM EST Office Visit [facility] [address] [place] [address] Name, MD Dante [address] [place] [address] 02/16/2025 2:00 PM EDT Office Visit [facility] [address] [place] [address] Pramod, Martine, OD [address] [place] [address] documented as of this encounter Visit Diagnoses Not on filedocumented in this encounter Additional Health Concerns Assessment Noted Time PHQ-9 Depression Total Score: 17 024 2:44 PM EST documented as of this encounter Care Teams Entry Level Programmer Relationship Specialty Start Date End Date Sheree Strong NP [address] [place] [address] PCP - General Family Medicine 09/06/24 documented as of this encounter
--- OUTSIDE RECORDS SUMMARY | 2024-11-11 13:47 | XMS_ITS | Encounter Summary ---
Demographics Address [address] [place] [address] Work Phone Email Address Preferred Language en Marital Status Anglican Affiliation Unknown Race Other Race Ethnic Group or Author Organization [employer] Address [address] [place] [address] Care Team Providers Care Patient Service Representative Name Role Phone SyedSheree anand LISHA Primary Care Provider [phone] Reason for Visit * Reason Onset Date Comments Chart Prep 11/01/2024 Encounter Details Date Type Department Care Team ([facility] st Contact Info) Description 11/01/[address] [facility] [address] [place], [place] [id number] Zakia Connolly MA Chart Prep Social History [...] Pests such as bugs, ants, or mice;Lead [place] or Pipes;Inadequate heat 09/06/2024 Food Insecurity Answer [...] Telephone Encounter - Zakia Connolly MA - 11/01/2024 10:19 AM EST Chart Prep Labs: done Images: done Vaccines due: Covid Due, Tdap Due, PCV20 Due, RSV in Pharmacy Due, and Shingles in pharmacy Due Referrals: Radiology pending appointment Screenings: Foot Exam and Retinopathy, Cervical cancer Overdue care gaps: Glucose and Sbirt documented in this encounter Plan of Treatment Upcoming Encounters Date Type Department Care Team (Late st Contact Info) Description 11/17/2024 10:00 AM EST Office Visit [facility] [address] [place] [address] Name, MD Dante [address] [place] [address] 02/16/2025 2:00 PM EDT Office Visit [facility] OPTOMETRY [address] [place] [address] Martine Benavidez, LEROY [address] [place] [address] documented as of this encounter Visit Diagnoses Not on filedocumented in this encounter Additional Health Concerns Assessment Noted Time PHQ-9 Depression Total Score: 17 024 2:44 PM EST documented as of this encounter Care Teams Patient Service Representative Relationship Specialty Start Date End Date Sheree Strong NP [address] [place] [address] PCP - General Family Medicine 09/06/24 documented as of this encounter
[2024-11-14 08:58] LABS: Complement C3 155 mg/dL (83-193)
[2024-11-14 21:48] LABS: Anti DNA DS Antibody <1 IU/mL; Antibody to SS-A Antigen >8.0 POS AI (<1.0 NEG); Antibody to SS-B Antigen 4.8 POS AI (<1.0 NEG); SM/Ribonucleoprotein Ab <1.0 NEG AI (<1.0 NEG); Smith Protein <1.0 NEG AI (<1.0 NEG)
[2024-11-15 14:53] LABS: DNAds, Crithidia Antibody Negative (Negative)
[2024-11-15 16:38] LABS: Cardiolipin IgG Ab <2.0 GPL-U/mL; Cardiolipin IgM Ab <2.0 MPL-U/mL
[2024-11-16 14:18] LABS: Anti Nuclear Antibody Screen POSITIVE (NEGATIVE)
[2024-11-16 15:49] LABS: Beta-2 Glycoprotein IgA <2.0 U/mL (<20.0); Beta-2 Glycoprotein IgG <2.0 U/mL (<20.0); Beta-2 Glycoprotein IgM <2.0 U/mL (<20.0)
[2024-11-16 22:58] LABS: PTT (LAC) Screen 35 sec (<=40)
== END 2024-11-11 11:33 | disposition home or self-care (01) ==
LOC: HO.LAB 11:32
PROVIDERS: Student in an Organized Health Care Education/Training Program; PCP Nurse Practitioner Primary Care; Visit Provider Internal Medicine Hypertension Specialist
DX: M32.9 Systemic lupus erythematosus, unspecified (principal); N26.1 Atrophy of kidney (terminal); I10 Essential (primary) hypertension; N18.9 Chronic kidney disease, unspecified
CPT/HCPCS: 36415; 80048; 81001; 82570; 83010; 83615; 84156; 85045; 85597; 85598; 85613; 85652; 85730; 86038; 86039; 86140; 86146; 86147; 86160; 86225; 86235; 86255; 86880

== ENCOUNTER 2024-11-14 10:58 | Outpatient (AMB) | payer MEDICAID, SELFPAY ==
[2024-11-14 11:02] VITALS: BP 102/62; PULSE 104; O2SAT 96
--- NOTE | 2024-11-14 11:02 | HO.NEPHOV ---
Vital Signs 11/14/24 11:02 Height 5 ft 3 in Weight 113 lb BMI 20.0 BP 102/62 Blood Pressure Location Lt brachial Position Sitting Pulse 104 H Pulse Source Pulse Oximeter Pulse Oximetry (%) 96 Oxygen Delivery Method Room Air Intake Visit Reasons: Follow-up/ Cnf Mica Washer Gluer Required: No Accompanied by: Self / Same As Patient Allergies cat dander [CAT DANDER] Allergy (Mild, Verified 11/14/24 11:05) ITCHY EYES Medication List - Last Reconciled 11/14/24 by Brannon Liz MD albuterol sulfate 90 mcg/actuation (Ventolin HFA) 2 puffs inhalation Q6H PRN ascorbic acid (vitamin C) 250 mg PO DAILY aspirin 81 mg PO DAILY atorvastatin 40 mg PO DAILY budesonide-formoterol 160-4.5 mcg/actuation (Symbicort) 2 puffs inhalation BID clopidogrel 75 mg PO DAILY docusate sodium 100 mg PO BID duloxetine 60 mg PO DAILY ferrous sulfate (FeroSul) 325 mg PO DAILY gabapentin 400 mg PO TID nitroglycerin 0.4 mg sublingual Q5M PRN oxycodone 5 mg PO BID PRN pantoprazole 40 mg PO DAILY@0630 trazodone 150 mg PO BEDTIME umeclidinium 62.5 mcg/actuation (Incruse Ellipta) 1 inh inhalation DAILY HPI Comments Details: 63-year-old man with a history of atrophic left kidney has been referred for further evaluation of chronic kidney disease. She has a history of hepatitis-C which was treated in 2022 with [facility] History of coronary disease status post CABG in 2018. Reason fraction was 55-60% as of 07/08/2023 History of congestive heart failure. 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 History of COPD with asthma. History of SLE/arthritis. History of AAA. Renal duplex done in 12/08/2019 did not reveal any significant renal artery stenosis. There was infrarenal abdominal aortic aneurysm measuring 3.1 cm in 2019. 08/09/2024 History of bilateral renal artery stenosis status post stent on both sides both stents were open as per recent CT scan in 07/08/2024 11/14/24 Had a CVA last month- Left sided weakness Was in [facility] Off Antihypertensives due to low BP [facility] Medical History (Updated 09/21/24 @ 10:46 by Charlotte Elaine MD) Fibromyalgia Insomnia Former heavy tobacco smoker Iron deficiency Abnormal mammogram Osteopenia Lupus (systemic lupus erythematosus) Hypercholesterolemia GERD (gastroesophageal reflux disease) COPD (chronic obstructive pulmonary disease) Polyneuropathy Occlusion and stenosis of left vertebral artery CVA (cerebral vascular accident) Heart failure with recovered ejection fraction (HFrecEF) Arthritis CKD (chronic kidney disease) COPD with asthma Hyperlipidemia Hypertension Atherosclerotic cardiovascular disease Diabetes Surgical History Status post aorto-coronary artery bypass graft History of open heart surgery Family History Father Heart attack Social History Household Members: Family Housing: House Alcohol intake: never Patient Tobacco Use Status: Never used Tobacco Substance Use Type: Marijuana service: No Physical Exam Vital Signs: Last Vital Signs Pulse 104 H 11/14/24 11:02 BP 102/62 11/14/24 11:02 Pulse Ox 96 11/14/24 11:02 Oxygen Delivery Method Room Air 11/14/24 11:02 BMI result Body Mass Index 20.0 Comfortable Neck supple no JVD. Lungs entry equal no rales. Heart S1-S2 heard no gallop or rub. Abdomen soft nontender. Neuro alert awake oriented. No asterixis. Extremities no edema. Results Reviewed Nephrology Results: Hgb 11.4 g/dl (12.0-16.0) L 09/06/24 WBC 5.9 X10*3/uL (4.8-10.8) 09/06/24 Plt Count 218 X10*3/uL (160-400) 09/06/24 Sodium 142 mmol/L (135-145) 11/11/24 Potassium 3.7 mmol/L (3.3-5.1) 11/11/24 Chloride 109 mmol/L (96-108) H 11/11/24 Carbon Dioxide 26 mmol/L (22-29) 11/11/24 BUN 10 mg/dL (9-16) 11/11/24 Creatinine 0.80 mg/dL (0.5-1.4) 11/11/24 Calcium 9.6 mg/dL (8.4-10.2) 11/11/24 Urine Protein Negative mg/dL (Neg-Trace) 11/11/24 Urine Creatinine 101.34 mg/dL 11/11/24 Protein/Creatinin Ratio 0.09 (<0.2) 11/11/24 Assessment & Plan Assessment & Plan (1) Hypertension: Code(s): I10 - Essential (primary) hypertension Category: Medical (2) Atrophy of left kidney: Code(s): N26.1 - Atrophy of kidney (terminal) Category: Medical (3) CKD (chronic kidney disease): Code(s): N18.9 - Chronic kidney disease, unspecified Category: Medical Plan 63-year-old woman with a history of atrophic left kidney with a baseline creatinine of 0.9 mg/dL in the setting of coronary disease and significant peripheral vascular disease and infrarenal abdominal aortic aneurysm has hypertension. Today blood pressure is acceptable without antihypertensives No need for antihypertensive meds at this time Reassess Discussed low-salt History of renal artery stenosis with atrophic left kidney CTA in 07/08/2024 showed 1. No evidence of aortic dissection. 2. Infrarenal abdominal aortic aneurysm at 3 cm. 3. Bilateral renal artery stents are patent with associated atrophy of the lower pole of the left kidney. 4. Incidental note made of mild cardiomegaly, mild emphysema, benign hepatic cyst and degenerative changes in the spine. Goal is to slow the progression of kidney disease Continue to avoid nephrotoxic agents including NSAIDs. Continue to avoid hypotension She will follow along closely with the team. Orders: Orders Basic Metabolic Panel 4 Months N18.9 - Chronic kidney disease, unspecified Coding Level of Care Code Est Pt Level 4 (05349) Diagnoses Hypertension I10 Atrophy of left kidney N26.1 CKD (chronic kidney disease) N18.9
--- OUTSIDE RECORDS SUMMARY | 2024-11-14 15:56 | XMS_ITS | Encounter Summary ---
Demographics Address [address] [place] [address] Mobile Phone Preferred Language en Marital Status Mormonism Affiliation Unknown Race Other Race Ethnic Group or Author Organization [employer] Address [address] [place] [address] Care Team Providers Care Digital Marketing Analyst Name Role Phone Sheree Strong DRY CLEANING CHECKER Primary Care Provider Reason for Visit * Reason Comments Stroke Stroke alert from [facility] Encounter Details Date Type Department Care Team (Late st Contact Info) Description 11/03/2024 12:50 PM EST - 11/03/2024 9:01 PM EST Emergency [facility] Emergency [address] [place] [phone] Elijah Broderick MD [address] [address] Nicolasa Meyer, DO [address] [place] [address] Left facial numbness (Primary Dx); Cerebrovascular accident [...] PM EST ED Course as of 11/03/241952 [facility] Nov 03, 2024 1436 Neck CTA: Left [...] with a recent stroke on 10/25 at [facility] having received TNK at that time [...] stroke on MRI. Patient was seen at [facility] and was given TNK at that time for left vertebral artery occlusion. Patient is not a tPA candidate currently. Patient had secondary stroke workup performed at [facility]. She is optimized with Plavix and aspirin. Patient is appropriate for discharge. Nicolasa Meyer DO 11/03/24 10:23 PM EST Nicolasa Meyer DO * UMA Saez - 11/03/2024 1:14 PM EST Images from the original note were not included. JUAN CARLOS PROGRESS NOTE Date: 11/03/2024 Author: UMA Saez Patient ID: Estephania Bill is a 63 y.o. female : 1960 MR#: [id number] SUBJECTIVE Subjective Patient was seen on 2 [...] were noted to be stable. EKG sinus. [id number] 98. Rapid response team evaluated patient patient was brought to [facility] emergency room/CTof head was ordered ROS [...] changes. Impression: No shoulder fracture or dislocation. [id number] -------- FINAL REPORT -------- Dictated By: Dell Abraham Dictated Date: 10/26/2024 14:24 ET Assigned Physician: Dell Abraham Reviewed and Electronically Signed By: Dell Abraham Signed Date: 10/26/2024 14:25 ET Workstation ID: [id number] Transcribed By: Self Edit Transcribed Date: 10/26/2024 14:24 ET ASSESSMENT & PLAN Addendum to note Approximately 1220 patient had neurological change. Reports increased left-sided weakness facial numbness Vital signs stable. [id number] 98 Examination reveals left-sided weakness to 2/ 5 difficulty with speech. Decrease sensation to her face. Difficulty with tongue protrusion Rapid response stroke called. Patient was taken urgently to CAT scan then to the emergency room. This is a 63-year-old female with a history of coronary artery disease status post CABG, CVA with residual left-sided hemiparesis, PAD/PVD who presented to [facility] with chest pain radiating down left arm. [...] with her stroke clinic after discharge at [facility] Per rehab team Chronic residual left-sided weakness [...] known well time 1130 today; while at [facility] experienced new left side deficits includingweakness, left [...] Patient presents with Stroke Stroke alert from [facility] HPI: This is a 63-year-old female with a documented past medical history of CAD s/p CABG in 2019 on aspirin and Plavix, HFrEF with an EF 60%, bilateral renal stenosis, hypertension hyperlipidemia, COPD who is presenting today from the [facility] facility with concern for stroke. Patient was admitted to [place] on 10/25 from the [facility] emergency department after she was seen [...] 400 mg 400 mg oral q8h SUNIL Juliann Man DO 400 mg at 11/03/24 0534 [...] immediate release tablet 2.5 mg 2.5 mg sixmg1o PRN Juliann Man, DO 2.5 mg at [...] Procedure Abnormality Status --------- ------ CBC auto differential[[id number]] Abnormal Final result Please view results for [...] Result No evidence of active pulmonary disease. [id number] -------- FINAL REPORT -------- Dictated By: Dell Abraham Dictated Date: 11/03/2024 16:23 ET Assigned Physician: Dell Abraham Reviewed and Electronically Signed By: Dell Abraham Signed Date: 11/03/2024 16:23 ET Workstation ID: [id number] Transcribed By: Self Edit Transcribed Date: 11/03/2024 [...] Signed Date: 11/03/2024 14:14 ET Workstation ID: [id number] Transcribed By: Self Edit Transcribed Date: 11/03/2024 14:02 ET EKG Interpretation EKG shows normal sinus rhythm at a rate of 94 bpm, no ischemic changes Critical Care Time None ? Medical Decision Making 63-year-old senting from [facility] after a stroke on 10/19 with complaint [...] brain [facility] and was evaluated by Juan Carlos team [...] 11/03/24 1337) ED Course as of 11/03/242121 [facility] Nov 03, 2024 143 Neck CTA: Left [...] with a recent stroke on 10/25 at [facility] having received TNK at that time [...] or life-threatening deterioration of the following conditions: RANGELAND MANAGEMENT SPECIALIST failure or compromise Critical care was time [...] Info) Description 11/16/2024 2:30 PM EST Evaluation [address] [address] Lore Cortes, PT 11/23/2024 2:30 PM EST Treatment [facility] [address] [address] Lore Cortes, PT 11/28/2024 12:45 PM EST Treatment [address] [address] Deysi Grijalva, PT 11/30/2024 10:30 AM EST Evaluation [facility] Speech Therapy [address] [facility] [address] [place] [address] Alea Trejo, DIRECTOR OF HEAD START 12/07/2024 10:45 AM EST Treatment [facility] Speech Therapy [address] [phone] Alea Trejo, DIRECTOR OF HEAD START 12/14/2024 10:45 AM EST Treatment [facility] Speech Therapy [address] [place] [phone] Alea Trejo, DIRECTOR OF HEAD START documented as of this encounter Procedures Procedure [...] ECG 12-LEAD STAT 11/03/2024 1:23 PM EST [place] CRITICAL CARE 30-74 MINUTES Routine 11/03/2024 12:47 PM EST ECG ANNOTATED 11/03/2024 ECG ANNOTATED 11/03/2024 documented in this encounter Results * POCT Glucose, blood (11/03/2024 9:42 PM EST) [facility] Glucose POCT 100 70 - 100 mg/dL 11/03/2024 9:46 PM EST [facility] Blood Capillary blood specimen / Unknown 11/03/2024 9:42 PM EST 11/03/2024 9:47 PM EST Nicolasa Meyer DO LAB POINT OF CARE TEST DOCKED DEVICE UNSOLICITED RESULTS Performing Organization Address [facility]/ZIP Co de Phone Number [facility] [address] [place] [address], [place] [phone] * Troponin I high sensitivity (NOW and then in 1 hour) (11/03/2024 7:24 PM EST) [facility] High Sensitivity Troponin I 7 <=54 ng/L LAB CHEMISTRY METHOD 11/03/2024 8:21 PM EST [facility] Blood Venous blood specimen / Unknown Venipuncture / Unknown 11/03/2024 7:24 PM EST 11/03/2024 7:47 PM EST Narrative [facility] - 11/03/2024 8:21 PM EST High levels of biotin in samples may falsely decrease hsTroponin values. ??Use caution when interpreting hsTroponin results in patients taking biotin who exhibit renal impairment (eGFR <60) or in patients taking more than 20 mg/day of biotin. Fernanda EATON LAB BLOOD ORDERABLES Performing Organization Address [facility]/ZIP Co de Phone Number [facility] [address] [place] [address], [place] [phone] * MR Brain wo Contrast (11/03/2024 6:56 [...] EST No evidence of active pulmonary disease. [id number] -------- FINAL REPORT -------- Dictated By: Dell Abraham Dictated Date: 11/03/2024 16:23 ET Assigned Physician: Dell Abraham Reviewed and Electronically Signed By: Dell Abraham Signed Date: 11/03/2024 16:23 ET Workstation ID: [id number] Transcribed By: Self Edit Transcribed Date: 11/03/2024 [...] IMPRESSION: No evidence of active pulmonary disease. [id number] -------- FINAL REPORT -------- Dictated By: Dell Abraham Dictated Date: 11/03/2024 16:23 ET Assigned Physician: Dell Abraham Reviewed and Electronically Signed By: Dell Abraham Signed Date: 11/03/2024 16:23 ET Workstation ID: [id number] Transcribed By: Self Edit Transcribed Date: 11/03/2024 16:23 ET Fernanda EATON IMG XR PROCEDURES * (ABNORMAL) CBC auto differential (11/03/2024 2:02 PM EST) WBC 6.9 4.8 - 10.8 K/[facility] LAB HEMETOLOGY METHOD 11/03/2024 2:13 PM EST [facility] RBC 4.60 3.80 - 4.80 M/[facility] LAB HEMETOLOGY METHOD 11/03/2024 2:13 PM EST [facility] Hemoglobin 11.0(L) 11.5 - 16.0 [...] LAB HEMETOLOGY METHOD 11/03/2024 2:13 PM EST [facility] Eosinophils Relative 2.0 % LAB HEMETOLOGY METHOD 11/03/2024 2:13 PM EST [facility] Basophils Relative 0.3 % LAB HEMETOLOGY METHOD 11/03/2024 2:13 PM [facility] Immature Granulocytes Relative 1.2 % LAB HEMETOLOGY METHOD 11/03/2024 2:13 PM EST [facility] Neutrophils Absolute 3.43 1.50 - 7.00 K/mcL LAB HEMETOLOGY METHOD 11/03/2024 2:13 PM EST [facility] Lymphocytes Absolute 2.52 1.00 - 5.00 K/mcL LAB HEMETOLOGY METHOD 11/03/2024 2:13 PM [facility] Monocytes Absolute 0.68 0.20 - 1.00 K/mcL LAB HEMETOLOGY METHOD 11/03/2024 2:13 PM EST [facility] Eosinophils Absolute 0.14 0.00 - 0.50 K/mcL LAB HEMETOLOGY METHOD 11/03/2024 2:13 PM [facility] Basophils Absolute 0.02 0.00 - 0.20 K/mcL LAB HEMETOLOGY METHOD 11/03/2024 2:13 PM [facility] Immature Granulocytes Absolute 0.08(H) 0.00 - 0.03 K/mcL LAB HEMETOLOGY METHOD 11/03/2024 2:13 PM EST [facility] Blood Venous blood specimen / Unknown Venipuncture / Unknown 11/03/2024 2:02 PM EST 11/03/2024 2:10 PM EST Fernanda EATON LAB BLOOD ORDERABLES [facility] [address] [place] [address], * Comprehensive metabolic panel (11/03/2024 2:02 PM [...] LAB CHEMISTRY METHOD 11/03/2024 2:45 PM EST [facility] Total Protein 6.3 6.0 - 8.0 g/dL LAB CHEMISTRY METHOD 11/03/2024 2:45 PM EST [facility] Albumin 3.2 3.2 - 5.0 g/dL LAB CHEMISTRY METHOD 11/03/2024 2:45 PM EST [facility] Total Bilirubin 0.4 0.0 - 1.4 mg/dL LAB CHEMISTRY METHOD 11/03/2024 2:45 PM EST [facility] Blood Venous blood specimen / Unknown Venipuncture / Unknown 11/03/2024 2:02 PM EST 11/03/2024 2:10 PM EST Fernanda EATON LAB BLOOD ORDERABLES Performing Organization Address [facility]/ZIP Co de Phone Number [facility] [address] [place] [address], [place] [phone] * Protime-INR (11/03/2024 2:02 PM EST) [facility] Protime 12.0 10.6 - 13.9 sec LAB COAGULATION METHOD 11/03/2024 2:22 PM [facility] INR 1.0 LAB COAGULATION METHOD 11/03/2024 2:22 PM [facility] Blood Venous blood specimen / Unknown Venipuncture / Unknown 11/03/2024 2:02 PM EST 11/03/2024 2:10 PM EST Fernanda EATON LAB BLOOD ORDERABLES Performing Organization Address City/[facility]/ZIP Co de Phone Number [facility] [address] [place] [address], [place] [phone] * APTT (11/03/2024 2:02 PM EST) aPTT 29.6 24.1 - 39.3 sec LAB COAGULATION METHOD 11/03/2024 2:22 PM EST [facility] Blood Venous blood specimen / Unknown Venipuncture / Unknown 11/03/2024 2:02 PM EST 11/03/2024 2:10 PM EST Fernanda EATON LAB BLOOD ORDERABLES [facility] ([facility] [address] [place] [address], * CT Angio Head/Neck Stroke wo and/or [...] Signed Date: 11/03/2024 14:14 ET Workstation ID: [id number] Transcribed By: Self Edit Transcribed Date: 11/03/2024 [...] reconstructions performed on a computer workstation. Scanner: [facility] 64slice VCT Dose reduction technique: ASIR (Adaptive [...] reconstructions performed on a computer workstation. Scanner: [facility] 64slice VCT Dose reduction technique: ASIR (Adaptive [...] Signed Date: 11/03/2024 14:14 ET Workstation ID: [id number] Transcribed By: Self Edit Transcribed Date: 11/03/2024 14:02 ET Fernanda EATON [facility] PROCEDURES * ECG 12 lead (11/03/2024 1:23 PM EST) Ventricular Rate ECG 94 BPM GEMUSE Atrial Rate 94 BPM GEMUSE P-R Interval 130 ms GEMUSE QRS Duration 94 ms GEMUSE Q-T Interval 372 ms GEMUSE QTc 465 ms GEMUSE P Wave Grant 57 degrees GEMUSE R Grant -32 degrees GEMUSE T Grant 74 degrees GEMUSE ECG Interpretation Normal sinus [...] EST Fernanda EATON ECG ORDERABLES GEMUSE * IA CRITICAL CARE 30-74 MINUTES (11/03/2024 12:47 PM EST) Narrative Elijah Broderick MD - 11/03/2024 12:47 PM EST MUA Ryan ? 11/03/2024 ??9:22 PM Critical Care Performed by: UMA Ryan Authorized by: Elijah Broderick MD ?? Critical care provider statement: ??Critical care time (minutes): ??30 ??Critical care was necessary to treat or prevent imminent or life-threatening deterioration of the following conditions: ??RANGELAND MANAGEMENT SPECIALIST failure or compromise ??Critical care was time [...] documented as of this encounter Care Teams Digital Marketing Analyst Relationship Specialty Start Date End Date Sheree Strong FNP [address] [place] [address] PCP - General Nurse Practitioner 10/24/24 documented as of this encounter
--- OUTSIDE RECORDS SUMMARY | 2024-11-14 15:56 | XMS_ITS | Encounter Summary ---
Demographics Address [address] [place] [address] Work Phone Email Address Preferred Language en Marital Status Scientologist Affiliation Unknown Race Other Race Ethnic Group or Author Organization [employer] Address [address] [facility] [address] [place] [address] Care Team Providers Care Soaker Name Role Phone Sheree Strong LISHA Primary Care Provider [phone] Encounter Details Date Type Department Care Team [...] Pests such as bugs, ants, or mice;Lead Dix or Pipes;Inadequate heat 09/06/2024 Food Insecurity Answer [...] Description 11/17/2024 10:00 AM EST Office Visit [facility] MEDICINE [address] [place] [address] Name, MD Dante [address] [place] [address] 02/16/2025 2:00 PM EDT Office Visit [facility] OPTOMETRY [address] [place] [address] Pramod, Martine, OD [address] [place] [address] documented as of this encounter Visit Diagnoses Not on filedocumented in this encounter Additional Health Concerns Assessment Noted Time PHQ-9 Depression Total Score: 17 024 2:44 PM EST documented as of this encounter Care Teams Soaker Relationship Specialty Start Date End Date Sheree Strong NP [address] [place] [address] PCP - General Family Medicine 09/06/24 documented as of this encounter
--- OUTSIDE RECORDS SUMMARY | 2024-11-14 15:56 | XMS_ITS | Encounter Summary ---
Author Organization [employer] Address [address] [place] [address] Phone Care Team Providers Care X Ray Developing Machine Operator Name Role Phone Kenny Kruse Primary Care Provider Encounter Details Date Type Department Care Team (Late st Contact Info) Description 12/05/2019 Hospital/ED/SNF/HH Visit [facility] [address] [place] [address] Provider, MD Maria Isabel [address] [place] [address] Social History Tobacco Use Types Packs/Day Years Used Date Smoking Tobacco: Never Assessed Sex and Gender Information Value Date Recorded Sex Assigned at Not on file Gender Identity Not on file Sexual Orientation Not on file documented as of this encounter Plan of Treatment Not on file documented as of this encounter Visit Diagnoses Not on filedocumented in this encounter Care Teams X Ray Developing Machine Operator Relationship Specialty Start Date End Date Kenny Kruse [address] [place] [address] PCP - General Family Medicine 08/20/23 documented as of this encounter
--- OUTSIDE RECORDS SUMMARY | 2024-11-14 15:56 | XMS_ITS | Encounter Summary ---
Demographics Address [address] [place] [address] Work Phone Email Address Preferred Language en Marital Status Latter-Day Affiliation Unknown Race Other Race Ethnic Group or Author Organization [employer] Address [address] [facility] [address] [place] [address] Care Team Providers Care Batch Dumper Name Role Phone Sheree Strong LISHA Primary Care Provider [phone] Encounter Details Date Type Department Care Team [...] Pests such as bugs, ants, or mice;Lead Eldred or Pipes;Inadequate heat 09/06/2024 Food Insecurity Answer [...] 10:00 AM EST Office Visit [facility] MEDICINE [address] [place] [address] Name, MD Dante [address] [place] [address] 02/16/2025 2:00 PM EDT Office Visit [facility] OPTOMETRY [address] [place] [address] Pramod, Martine, OD [address] [place] [address] documented as of this encounter Visit Diagnoses Not on filedocumented in this encounter Additional Health Concerns Assessment Noted Time PHQ-9 Depression Total Score: 17 024 2:44 PM EST documented as of this encounter Care Teams Batch Dumper Relationship Specialty Start Date End Date Sheree Strong NP [address] [place] [address] PCP - General Family Medicine 09/06/24 documented as of this encounter
--- OUTSIDE RECORDS SUMMARY | 2024-11-14 15:56 | XMS_ITS | Encounter Summary ---
Demographics Address [address] [place] [address] Work Phone Email Address Preferred Language en Marital Status Denominational Affiliation Unknown Race Other Race Ethnic Group or Author Organization [employer] Address [address] [facility] [address] [place] [address] Care Team Providers Care Tubular Stock Glass Bulb Machine Former Name Role Phone Sheree Strong LISHA Primary Care Provider [phone] Reason for Visit * Reason Comments Med Refill Encounter Details Date Type Department Care Team (Late st Contact Info) Description 07/23/2024 Refill [facility] [address] [place] [phone] Emma De La Cruz ANP [address] [place] [address] Chronic obstructive pulmonary disease, unspecified COPD type (CMS/[facility]) Social History Tobacco Use Types Packs/Day Years [...] Description 11/17/2024 10:00 AM EST Office Visit [facility] [address] [place] [address] Dante Chamberlain MD [address] [place] [address] 02/16/2025 2:00 PM EDT Office Visit [facility] OPTOMETRY [address] [place] [address] Martine Benavidez, OD [address] [place] [address] documented as of this encounter Visit Diagnoses Diagnosis Chronic obstructive pulmonary disease, unspecified COPD type (CMS/[facility]) documented in this encounter Care Teams Tubular Stock Glass Bulb Machine Former Relationship Specialty Start Date End Date Sheree Strong NP [address] [place], [place] [phone] PCP - General Family Medicine 09/06/24 documented as of this encounter
--- OUTSIDE RECORDS SUMMARY | 2024-11-14 15:56 | XMS_ITS | Encounter Summary ---
Demographics Address [address] [place] [address] Mobile Phone Preferred Language en Marital Status Orthodoxy Affiliation Unknown Race Other Race Ethnic Group or Author Organization [employer] Address [address] [place] [address] Care Team Providers Care Construction Ironworker Name Role Phone Sheree Strong BISHOP Primary Care Provider [phone] Encounter Details Date Type Department Care Team (Late st Contact Info) Description 11/07/2024 Plan of Care Documentation [facility] Inpatient Rehab [address] [place] [address] Social History Tobacco Use Types [...] / Admitting Diagnosis: CVA (cerebral vascular accident) ([facility]) [I63.9] Admit Date/Time: 10/25/2024 1:27 PM Primary Rehab (Etiologic) Diagnosis: Patient Active Problem List Diagnosis Stroke (CMS/[facility]) Diabetes (CMS/HCC) CVA (cerebral vascular accident) ([facility]) Noncompliance HTN (hypertension) TIA (transient ischemic attack) Team Discussion UPDATES: Physician: 63-year-old female past medical history significant for coronary artery disease status post CABG in 2019 on aspirin and Plavix, HFrEF EF 30-35% which improved to 60%, bilateral renal stenosis, hypertension, hyperlipidemia, COPD, anxiety, who presented to [facility]'s emergency department with intermittent left-sided chest pain [...] update scores prior to DC. PT: IND POCKETBOOK MAKER: IND SW: No concerns CM: Pt lives [...] Pt had an appointment to [facility] to [facility] with [facility] box but missed the appointment. Pt states she applied for the [employer] program with [employer], meeting was scheduled for tomorrow. Pt has three adultsons, 2 are local but work time study technician. Pts sister is primary support but also works time study technician. Pt states her partner lives in [place] and will visit 1- 2x/week. HCP on [...] CARE Score - Sit to Stand: 6 Chair/Bom-mv-Ncddg Transfer Assistance Needed: Independent Physical Assistance Level: No physical assistance Comment: RW CARE Score - Chair/Cai-ur-Gblgj Transfer: 6 Car Transfer Assistance Needed: Independent [...] using synoyms/opposites as a word finding strategy. POCKETBOOK MAKER Assessment Results: Cognitive impairments Prognosis: Good Barriers to Discharge: Evaluation/Treatment Tolerance: Patient tolerated treatment well Plan Treatment/Interventions: Cognitive linguistic functioning POCKETBOOK MAKER Plan: Skilled POCKETBOOK MAKER Discharge Recommendations: Outpatient POCKETBOOK MAKER Diet Recommendations: Regular/thin Barriers to Discharge: Administrative Assistant Data Entry's Assessment Adult diet [facility]; Diabetic, Cardiac; 90 gm carb/Meal; Sodium 2 [...] noted foodallergies or issues with chewing/swallowing. Appetite FUEL CELL BATTERY TECHNICIAN: Fair Intake FUEL CELL BATTERY TECHNICIAN: Decreased Nutrition Diagnosis Status: New Diagnosis: Inadequate [...] Info) Description 11/16/2024 2:30 PM EST Evaluation [address] [phone] Lore Cortes, PT 11/23/2024 2:30 PM EST Treatment [address] [phone] Lore Cortes, PT 11/28/2024 12:45 PM EST Treatment [address] [address] Deysi Grijalva, PT 11/30/2024 10:30 AM EST Evaluation [facility] Speech Therapy [address] [place] [phone] Alea Trejo, POCKETBOOK MAKER 12/07/2024 10:45 AM EST Treatment [facility] Speech Therapy [address] [phone] Alea Trejo, POCKETBOOK MAKER 12/14/2024 10:45 AM EST Treatment [facility] Speech [facility] [address] [phone] Alea Trejo, POCKETBOOK MAKER documented as of this encounter Visit Diagnoses Not on filedocumented in this encounter Additional Health Concerns Assessment Noted Time PHQ-9 Depression Total Score: 1 11/07/19 4:11 PM EST documented as of this encounter Care Teams Construction Ironworker Relationship Specialty Start Date End Date Sheree Strong FNP [address] [place] [address] PCP - General Nurse Practitioner 10/24/24 documented as of this encounter
--- OUTSIDE RECORDS SUMMARY | 2024-11-14 15:56 | XMS_ITS | Encounter Summary ---
Author Organization [facility] Address [address] [place] [phone] Phone Care Team Providers Care Cuprous Chloride Helper Name Role Phone Kenny Kruse Primary Care Provider [phone] Encounter Details Date Type Department Care Team (Late st Contact Info) Description 12/05/2019 Hospital/ED/SNF/HH Visit [facility] [address] [place] [address] Provider, MD Maria Isabel [address] [place] [id number] Social History Tobacco Use Types Packs/Day Years Used Date Smoking Tobacco: Never Assessed Sex and Gender Information Value Date Recorded Sex Assigned at Not on file Gender Identity Not on file Sexual Orientation Not on file documented as of this encounter Plan of Treatment Not on file documented as of this encounter Visit Diagnoses Not on filedocumented in this encounter Care Teams Cuprous Chloride Helper Relationship Specialty Start Date End Date Kenny Kruse [address] [place] [address] PCP - General Family Medicine 08/20/23 documented as of this encounter
--- OUTSIDE RECORDS SUMMARY | 2024-11-14 15:56 | XMS_ITS | Encounter Summary ---
Demographics Address [address] [place] [address] Work Phone Email Address Preferred Language en Marital Status Congregational Affiliation Unknown Race Other Race Ethnic Group or Author Organization [employer] Address [address] [place] [address] [address] [place] [address] Care Team Providers Care Filter Pulp Washer Name Role Phone Sheree Strong LISHA Primary Care Provider [phone] Reason for Visit * Reason Onset Date Comments Nurse Triage 07/06/2024 Encounter Details Date Type Department Care Team (Late st Contact Info) Description 07/06/2024 Telephone [facility] [address] [place] [address] [phone] Emma De La Cruz ANP [address] [place] [address] Nurse Triage Social History Tobacco Use Types [...] 11/17/2024 10:00 AM EST Office Visit [facility] [address] [place] [address] [phone] Name, MD Dante [address] [place] [address] 02/16/2025 2:00 PM EDT Office Visit [facility] [address] [place], [place] [phone] Martine Benavidez, LEROY [address] [place] [address] documented as of this encounter Visit Diagnoses Not on filedocumented in this encounter Care Teams Filter Pulp Washer Relationship Specialty Start Date End Date Sheree Strong NP [address] [place] [address] PCP - General Family Medicine 09/06/24 documented as of this encounter
--- OUTSIDE RECORDS SUMMARY | 2024-11-14 15:56 | XMS_ITS | Clinical Summary ---
Author Organization [facility] Address [address] [place] [phone] Phone Care Team Providers Care Director Alumni Relations Name Role Phone Kenny Kruse Primary Care Provider [phone] Allergies Active Allergy Reactions Criticality Noted Date [...] Overview (08/20/2023): I25.10: Atherosclerotic heart disease of [place] coronary artery without angina pectoris Atherosclerosis of [...] 12/24/1979 Influenza Vaccine (#1) 2024 Care Teams Director Alumni Relations Relationship Specialty Start Date End Date Kenny Kruse [address] [place] [address] PCP - General Family Medicine 08/20/23
--- OUTSIDE RECORDS SUMMARY | 2024-11-14 15:56 | XMS_ITS | Encounter Summary ---
Demographics Address [address] [place] [address] Work Phone Email Address Preferred Language en Marital Status Islam Affiliation Unknown Race Other Race Ethnic Group or Author Organization [employer] Address [address] [facility] [address] [place] [address] Care Team Providers Care Heart Doctor Name Role Phone SyedSheree anand LISHA Primary Care Provider [phone] Reason for Visit * Reason Onset Date Comments Chart Prep 10/26/2024 Encounter Details Date Type Department Care Team ([facility] st Contact Info) Description 10/26/2024 Telephone [facility] [address] [place], [place] [phone] Zakia Connolly MA Chart Prep Social History [...] Pests such as bugs, ants, or mice;Lead [place] or Pipes;Inadequate heat 09/06/2024 Food Insecurity Answer [...] Description 11/17/2024 10:00 AM EST Office Visit [facility] [address] [place] [address] Name, MD Dante [address] [place] [address] 02/16/2025 2:00 PM EDT Office Visit [facility] OPTOMETRY [address] [place] [address] Martine Benavidez, LEROY [address] [place] [address] documented as of this encounter Visit Diagnoses Not on filedocumented in this encounter Additional Health Concerns Assessment Noted Time PHQ-9 Depression Total Score: 17 024 2:44 PM EST documented as of this encounter Care Teams Heart Doctor Relationship Specialty Start Date End Date Sheree Strong NP [address] [place] [address] PCP - General Family Medicine 09/06/24 documented as of this encounter
--- OUTSIDE RECORDS SUMMARY | 2024-11-14 15:56 | XMS_ITS | Clinical Summary ---
Demographics Address [address] [place] [address] Work Phone Email Address Preferred Language en Marital Status Buddhist Affiliation Unknown Race Other Race Ethnic Group or Author Organization [employer] Address [address] [place] [address] [address] [place] [address] Care Team Providers Care Physician Representative Name Role Phone SyedSheree anand LISHA Primary Care Provider [phone] Allergies No known active allergies Medications Nitrostat 0.[address] 0.4 mg under the tongue every 5 (five) minutes if needed for chest pain. If not resolved in 2 doses, call 911 03/01/20 24 Active albuterol 108 (90 Base) MCG/ACT inhalerIndicati ons:Chronic obstructive pulmonary disease, unspecified COPD type (CMS/HCC) Inhale 2 puffs every 6 (six) hours if needed for wheezing. 18 g 1 05/20/20 24 025 Active Ascorbic Acid (vitamin C) 250 MG tabletIndicatio ns:Iron deficiency anemia, unspecified iron deficiency anemia type Take 1 tablet (250 mg) by mouth Once per day. Take with ferrous sulfate tablets. 90 tablet 3 05/20/20 24 025 Active pantoprazole (ProtoNix) 40 MG EC tabletIndicatio ns:Gastro-esoph ageal reflux disease without esophagitis Take 1 tablet (40 mg) by mouth before breakfast. 90 tablet 1 05/20/20 24 Active clopidogrel (Plavix) 75 MG tabletIndicatio ns:Arterioscler osis of coronary artery Take 1 tablet (75 mg) by mouth Once per day. 90 tablet 1 05/20/20 24 Active atorvastatin (Lipitor) 40 MG tabletIndicatio ns:Arterioscler osis of coronary artery Take 1 tablet (40 mg) by mouth Once per day. 90 tablet 1 05/20/20 24 Active budesonide-form oterol (Symbicort) 160-4.5 MCG/ACT inhalerIndicati ons:Chronic obstructive pulmonary disease, unspecified COPD type (CMS/HCC) INHALE 2 PUFFS BY MOUTH TWICE DAILY, RINSE MOUTH AFTER USING. 10.2 g 2 09/14/20 24 Active traZODone (Desyrel) 150 MG tabletIndicatio ns:Insomnia, unspecified type TAKE 1 TABLET BY MOUTH EVERY DAY AT BEDTIME 30 tablet 2 09/14/20 24 Active DULoxetine (Cymbalta) [address] capsuleIndicati ons:Fibromyalgi a TAKE 1 CAPSULE BY MOUTH EVERY DAY 30 capsule 2 09/14/20 24 Active Incruse Ellipta 62.5 MCG/ACT aerosol powderIndicatio ns:Chronic obstructive pulmonary disease, unspecified COPD type (CMS/HCC) INHALE 1 PUFF BY MOUTH EVERY DAY AT THE SAME TIME 30 each 2 09/14/20 24 Active Ferrous Sulfate (iron) 325 (65 Fe) MG tabletIndicatio ns:Iron deficiency anemia, unspecified iron deficiency anemia type TAKE 1 TABLET BY MOUTH EVERY DAY WITH vitamin c 90 tablet 1 11/14/19 25 Active Aspirin Low Dose 81 MG chewable tablet Chew 1 tablet Once per day. 11/08/19 25 Active oxyCODONE (Roxicodone) 5 MG immediate release tablet Take 0.5 tablets by mouth if needed in the morning and at bedtime. 11/08/19 25 025 Active sennosides (Senokot) 8.6 MG tablet Take 2 tablets by mouth at bedtime. 11/08/19 25 025 Active Docusate Sodium (DSS) 100 MG capsule Take 1 capsule by mouth 2 times daily. 11/08/19 25 025 Active gabapentin (Neurontin) 400 MG capsule Take 1 capsule by mouth every 8 (eight) hours. 11/08/19 25 Active sacubitril-vals roger (Entresto) 97-103 MG tabletIndicatio ns:Hypertensive heart disease with congestive heart failure, unspecified heart failure type (CMS/HCC) Take 1 tablet by mouth 2 times daily. 60 tablet 12 05/20/20 24 025 Discontinued(Me d list cleanup (will not trigger notification to Pharmacy)) Jardiance 10 MGIndications:H ypertensive heart disease with congestive heart failure, unspecified heart failure type (CMS/HCC) Take 1 tablet (10 mg) by mouth Once per day. 90 tablet 1 05/20/20 025 Discontinued(St op taking at discharge) furosemide (Lasix) 20 MG tabletIndicatio ns:Hypertensive heart disease with congestive heart failure, unspecified heart failure type (CMS/HCC) Take 1 tablet (20 mg) by mouth Once daily. 30 tablet 2 05/20/20 025 Discontinued(Me d list cleanup (will not trigger notification to Pharmacy)) ferrous sulfate 325 (65 Fe) MG tabletIndicatio ns:Iron deficiency anemia, unspecified iron deficiency anemia type Take 1 tablet (325 mg) by mouth Once daily. With vit c 90 tablet 1 05/20/20 025 Discontinued carvedilol (Coreg) 25 MG tabletIndicatio ns:Arterioscler osis of coronary artery Take 1 tablet (25 mg) by mouth 2 times daily. 180 tablet 1 05/20/20 025 Discontinued aspirin 81 MG EC tabletIndicatio ns:Arterioscler osis of coronary artery Take 1 tablet (81 mg) by mouth Once per day. 90 tablet 1 05/20/20 025 Discontinued amLODIPine (Norvasc) 10 MG tablet Take 10 mg by mouth Once per day. 07/12/20 025 Discontinued(Me d list cleanup (will not trigger notification to Pharmacy)) gabapentin (Neurontin) 800 MG tabletIndicatio ns:Polyneuropat hy TAKE 1 CAPSULE BY MOUTH THREE TIMES DAILY 90 tablet 2 09/14/20 025 Discontinued(Me d list cleanup (will not trigger notification to Pharmacy)) Aspirin Low Dose 81 MG EC tabletIndicatio ns:Arterioscler osis of coronary artery TAKE 1 TABLET BY MOUTH EVERY DAY 90 tablet 1 11/14/19 025 Discontinued(Me d list cleanup (will not trigger notification to Pharmacy)) carvedilol (Coreg) 25 MG tabletIndicatio ns:Arterioscler osis of coronary artery TAKE 1 TABLET BY MOUTH TWICE DAILY 180 tablet 1 11/14/19 025 Discontinued(Me d list cleanup (will not trigger notification to Pharmacy)) Active Problems Problem Noted Date Diagnosed Date Routine cervical smear 11/10/2024 Urinary incontinence 11/10/2024 Assessment & Plan (11/12/2024 1:37 PM EST): New onset UA negative Will send culture and treat as indicated Encounter for breast and pelvic examination 10/20 [...] EST): Pt reports pain was treated in [place], once established with rheumatology and disease flares managed (not currently) will address adjunctive pain measure Pt in agreement with this plan Health care maintenance 09/11/2024 Assessment & Plan (09/11/2024 4:02 PM EST): Referrals to eye care, dental Mammogram ordered Former heavy tobacco smoker 05/20/2024 Overview (05/20/2024): Smoked from 2063-3030, 1-1.5 PPD, 41-61.5 PYH Lupus erythematosus 03/15/2024 [...] cath 03/2020: Patent ALMENDAREZ-LAD, SVG-OM, SVG-PDA. Severe [place] vessel CAD. Lexiscan 06/2021: Anterior ischemia. Cardiac [...] S/p CABG x3 2019 Coronary arteriosclerosis in [place] artery 06/24 Overview (11/01/2024): I25.10: Atherosclerotic heart disease of [place] coronary artery without angina pectoris Atherosclerosis of [...] Encounters Date Type Department Care Team Description 11/13/2024 Refill [facility] [address] [place] [phone] Emma De La Cruz ANP Arteriosclerosis of coronary artery; Iron deficiency anemia, unspecified iron deficiency anemia type 11/09/2024 9:15 AM EST Procedure Visit [address] [address] Dori Rhodes FNP Routine cervical smear (Primary Dx); Urinary incontinence, unspecified type; Prediabetes; Abnormal breast exam; Normal pelvic exam; Menopausal disorder 11/09/2024 Travel 11/01/[address] [phone] Zakia Connolly MA Chart Prep 11/01/2024 Patient Outreach [address] [address] Sheree Strong NP Transition Of Care (Tcm) (HDF scheduled) 10/31/2024 Travel 10/26/[address] [address] Zakia Connolly MA Chart Prep 10/26/[address] [address] Cathy Lord, MARGARITA 09/14/2024 Refill [facility] [address] [place] [phone] Emma De La Cruz ANP Chronic obstructive pulmonary disease, unspecified COPD type ([facility]/HCC); Insomnia, unspecified type; Fibromyalgia; Polyneuropathy 09/13/2024 Travel 09/07/2024 Patient Outreach [facility] [address] [place] [phone] Sheree Strong NP Care Coordination (CHW outreach SDOH pest control - referral completed ) 09/06/2024 2:00 PM EST Office Visit [facility] MED[facility] [address] [place] [phone] Sheree Strong NP Systemic lupus erythematosus, unspecified SLE type, unspecified organ involvement status ([facility]) (Primary Dx); Hypertensive heart disease with congestive heart failure, unspecified heart failure type ([facility]); History of coronary artery bypass surgery; Type 2 diabetes mellitus with other specified complication, unspecified whether terminal gauger supervisor insulin use ([facility]); Health care maintenance; Essential hypertension; Other chronic pain 09/06/2024 Telephone [facility] [address] [place] [phone] Jose L Mahan MA SDOH positive 09/06/2024 Travel 09/01/[address] [address] Caprice Trimble MA chart prep 08/30/2024 Patient Outreach [facility] [address] [place], [place] [phone] Sheree Strong NP Pre-visit Planning (SDOH unable to reach LVM) 08/29/[address] [address] Oxana Crespo, MARGARITA 08/29/[address] [address] Pradeep Arambula MA PA for Entresto 97-103mg 08/24/[address] [address] Emma De La Cruz ANP Prior Authorization [...] Pests such as bugs, ants, or mice;Lead Scenic Oaks or Pipes;Inadequate heat 09/06/2024 Food Insecurity Answer [...] Description 11/17/2024 10:00 AM EST Office Visit [facility] MED[facility] [address] [place] [address] Name, MD Dante [address] [place] [address] 02/16/2025 2:00 PM EDT Office Visit [facility] OPTOMETRY [address] [place] [address] Martine Benavidez, OD [address] [place] [address] Health Maintenance Due Date Last Done Comments [...] 09/06/2024 Depression Screening 09/06/2025 09/06/2024, 09/06/20 24 Lipid Panel 09/06/2025 09/06/2024 SDOH Screening 09/06/2025 09/06/2024 Alcohol/Substance Use Screening 11/09/2025 11/09/2024 Tobacco Screening 11/09/2025 11/09/2024 Diabetes: Urine Protein Screening 11/11/2025 11/11/2024, 09/06/2024 Colorectal Cancer Screening 10/04/2026 FIT DNA/Cologuard 10/04/2026 [...] Procedure Name Priority Date/Time Associated Diagnosis Comments DIRECT ANTIGLOBULIN TEST (DELBERT) Routine 11/11/2024 11:56 AM EST Subareolar mass of right breast HAPTOGLOBIN Routine 11/11/2024 11:56 AM EST Subareolar [...] mellitus with other specified complication, unspecified whether terminal gauger supervisor insulin use (CMS/HCC) POCT GLYCATED HEMOGLOBIN, TOTAL Routine 09/06/2024 2:21 PM EST Type 2 diabetes mellitus with other specified complication, unspecified whether terminal gauger supervisor insulin use (CMS/HCC) BI MAMMOGRAM SCREENING BILATERAL Routine 08/26/2018 3:22 PM EST ZZZ HISTORICAL HPV MRNA E6/E7 Routine 09/15/2017 10:24 AM EST from Last 3 Months or Most Recently Relevant to Health Maintenance Results * (ABNORMAL) Sed Rate by Modified Docergren (11/11/2024 11:56 AM EST) Only the most recent of2 resultswithin the time period is included. Erythrocyte Sedimentation Rate 29(H) 0 - 20 MM/HR [facility] Comment:Patients with polycy themia and many hemoglobin abnormalitiesmay have depressed sed rates whereas patients with anemiamay have elevated sed rates. 11/11/2024 11:5 6 AM EST 11/11/2024 11:56 AM EST Generic External Data Provider LAB BLOOD ORDERAB LES Final Result Performing Organization Address [facility] Co de Phone Number [facility] [address] [place] [address] [phone] * (ABNORMAL) Reticulocyte Count (11/11/2024 11:56 AM EST) Reticulocytes Absolute 0.036 0.026 - 0.095 X10*6/uL [facility] Immature Retic Fraction 8.2 3.0 - 15.9 % [facility] Retic HGB Equivalent 25.6(L) 30.0 - 35.0 pg [facility] Reticulocyte Percent 0.8 0.5 - 1.8 % [facility] 11/11/2024 11:5 6 AM EST 11/11/2024 11:56 AM EST Generic External Data Provider LAB BLOOD ORDERAB LES Final Result Performing Organization Address [facility] Co de Phone Number [facility] [address] [place] [address] [phone] * Direct Antiglobulin Test (DELBERT) (11/11/2024 11:56 AM EST) DELBERT Result Polyspecific NEGATIVE [facility] DELBERT Result Comment TNP [facility] Comment:Test not indicated 11/11/2024 11:5 6 AM EST 11/11/2024 11:56 AM EST Generic External Data Provider LAB BLOOD ORDERAB LES Final Result Performing Organization Address [facility] de Phone Number [facility] [address] [place] [phone] * Haptoglobin (11/11/2024 11:56 AM EST) Haptoglobin 185 63 - 273 mg/dL [facility] 11/11/2024 11:5 6 AM EST 11/11/2024 11:56 AM EST Generic External Data Provider LAB BLOOD ORDERAB LES Final Result Performing Organization Address [facility] Phone Number [facility] [address] [place] [phone] * Protein Creatinine Ratio, Urine (11/11/2024 11:44 AM EST) Only the most recent of2 resultswithin the time period is included. Creatinine, Urine 101.34 mg/dL [facility] Protein, Total, Random Urine 9 <12 mg/dL [facility] Protein/Creati nine Ratio, Ur 0.09 <0.2 [facility] Comment:The spot urine prote in:creatinine ratio may increase to 0.3during normal . 11/11/2024 11:4 4 AM EST 11/11/2024 12:16 PM EST Generic External Data Provider LAB URINE ORDERAB LES Final Result Performing Organization Address [facility] Co de Phone Number [facility] [address] [place] [address] [phone] * (ABNORMAL) Urinalysis Complete (11/11/2024 11:44 AM EST) Color Urine Yellow [facility] Appearance Urine Clear [facility] PH 6.5 5.0 - 9.0 [facility] Glucose Urine UA Negative Negative mg/dL [facility] Urine Blood Negative Negative [facility] Specific [employer] - Urine 1.015 1.005 - 1.025 [facility] Urine Protein Negative Neg-Trace mg/dL [facility] Urine Ketones Negative Negative mg/dL [facility] Nitrite Urine Negative Negative [facility] Leukocyte Esterase Urine Trace(A) Negative [facility] RBC Urine 0-2 0 - 2 /HPF [facility] Urine WBC 0-5 0 - 5 /HPF [facility] Urine Squamous Epithelial Cell 6-10 0 - 2 /HPF [facility] Urine Bacteria Trace None Seen [facility] Hyaline Casts, Urine 0-2 0 - 2 /LPF [facility] 11/11/2024 11:4 4 AM EST 11/11/2024 12:16 PM EST us Generic External Data Provider LAB URINE ORDERAB LES Final Result Performing Organization Address City/[facility]/ZIP Co de Phone Number [facility] [address] [place] [phone] * Culture, Urine, Routine (11/09/2024 11:30 AM EST) Urine Urine specimen obtained by clean catch procedure / Unknown 11/09/2024 11:30 AM EST 11/09/2024 1:08 PM EST Comment:UACC Narrative [facility] - 11/10/2024 10:44 AM EST Urine Culture No growth. Specimen Source: Urine clean catch us Dori ALAS LAB MICROBIOLOGY - GENERAL ORD ERABLES Final Result Performing Organization Address [facility] Co de Phone Number [facility] [address] [place] [phone] * POCT Urinalysis (11/09/2024 11:14 AM [...] Date Urine 11/09/2024 11:1 4 AM EST [facility] POINT OF CARE TEST ENTER/EDIT ORDERABLES Final Result * POCT Glucose (11/09/2024 9:32 AM EST) Only the most recent of2 resultswithin the time period is included. [facility] Glucose Blood, POC 101 60 - 200 mg/dL QC Media Lot # [id number] Lot# Expiration Date Blood Capillary blood specimen / Unknown 11/09/2024 9:32 AM EST Result [facility] POINT OF CARE TEST ENTER/EDIT ORDERABLES Final Result * Hepatitis C Viral RNA, Quantitative, Real-Time PCR (09/06/2024 2:49 PM EST) [facility] Hepatitis C Viral Load <15 NOT DETECTED NOT DETECTED IU/mL [facility] HCV Log PCR <1.18 NOT DETECTED NOT DETECTED Log IU/mL [facility] Comment:For additional infor elmer, please refer tohttp://education.[employer]/faq/QOK80p1(This link is being provided for informational/educational purposes only.)THIS TEST WAS PERFORMED AT:[id number] [place] [phone] JOYA MD 09/06/2024 2:49 PM EST 09/07/2024 12:19 PM EST Sheree Strong NP LAB BLOOD ORDERABLES Final Resul t [facility] [address] [place] [phone] [phone] * (ABNORMAL) CBC auto differential (09/06/2024 2:49 PM EST) White Blood Count 5.9 4.8 - 10.8 X10*3/uL [facility] Red Blood Count 4.73 4.20 - 5.50 X10*6/uL [facility] Hemoglobin 11.4(L) 12.0 - 16.0 g/dl [facility] Hematocrit 38.0 37.0 - 47.0 % [facility] Mean Corpuscular Volume 80.3 80.0 - 98.0 fL [facility] Mean Corpuscular Hemoglobin 24.1(L) 27.0 - 33.0 pg [facility] Mean Corpuscular HGB Conc 30.0(L) 31.0 - 35.0 g/dl [facility] Red Cell Distribution Width 15.1 11.0 - 16.0 % [facility] Platelet Count 218 160 - 400 X10*3/uL [facility] Mean Platelet Volume 11.5 9.4 - 12.3 fL [facility] Neutrophils Percent Auto 57.5 45 - 73 % [facility] Imm Gran Pct Auto 0.5(H) 0.0 - 0.4 % [facility] Lymphocytes Percent Auto 27.0 20 - 40 % [facility] Monocytes Percent Auto 8.2 2 - 11 % [facility] Eosinophils Percent Auto 6.5(H) 0 - 4 % [facility] Basophils Percent Auto 0.3 0 - 2 % [facility] NRBC Pct Auto 0.0 0.0 - 0.2 /100WBC [facility] Neutrophils Absolute Auto 3.4 2.0 - 8.3 x10*3/uL [facility] Imm Gran Abs Auto 0.03 0.00 - 0.03 X10*3/uL [facility] Lymphocytes Absolute Auto 1.6 1.2 - 4.9 X10*3/uL [facility] Monocytes Absolute Auto 0.5 0.1 - 1.2 X10*3/uL [facility] Eosinophils Absolute Auto 0.4 0.0 - 0.4 X10*3/uL [facility] Basophils Absolute Auto 0.0 0.0 - 0.2 X10*3/uL [facility] NRBC Abs Auto 0.000 0.0 - 0.012 X10*3/uL [facility] Blood Venous blood specimen / Unknown 09/06/2024 2:49 PM EST 09/06/2024 3:57 PM EST Sheree Strong NP LAB BLOOD ORDERABLES Final Resul t Performing Organization Address [facility]/ZIP Co de Phone Number [facility] [address] [place] [phone] * (ABNORMAL) Hepatitis C Antibody with Reflex to HCV, RNA, Quantitative, Real- Time PCR (09/06/2024 2:49 PM EST) Pathologist [facility] Hepatitis C Antibody Reactive( A) Nonreactive [facility] Comment:Presumptive evidence of antibodies to HCV. Blood Venous blood specimen / Unknown 09/06/2024 2:49 PM EST 09/06/2024 4:07 PM EST us Sheree Strong NP LAB BLOOD ORDERABLES Final Resul t Performing Organization Address City/[facility]/ZIP Co de Phone Number [facility] [address] [place] [phone] * HIV-1/2 Antigen and Antibodies, Fourth Generation, with Reflexes (09/06/2024 2:49 PM EST) HIV AB/AG Nonreactive Nonreactive [facility] Comment:HIV-1 p24 Ag and/or HIV-1/HIV-2 Ab not detected.A test result that is nonreactive does not exclude thepossibility of exposure to or infection with HIV-1 and/orHIV-2. Nonreactive results in this assay for individualswith prior exposure to HIV-1 and/or HIV-2 may be due toantigen and antibody levels that are below the limit ofdetection of this assay.The [employer]ge Style HIV Ag/Ab Combo assay result andsupplemental assay results should be interpreted inconjunction with the patient's clinical presentation,history and other laboratory results. If the results areinconsistent with clinical evidence, additional testing issuggested to confirm the result. Blood Venous blood specimen / Unknown 09/06/2024 2:49 PM EST 09/06/2024 4:07 PM EST us Sheree Strong ASSOCIATE CURATOR LAB BLOOD ORDERABLES Final Resul t Performing Organization Address [facility]/ZIP Co de Phone Number [facility] [address] [place] [phone] * (ABNORMAL) C-reactive Protein (09/06/2024 2:49 PM EST) C Reactive Protein 1.91(H) < or = 0.50 mg/dL [facility] Blood Venous blood specimen / Unknown 09/06/2024 2:49 PM EST 09/06/2024 4:07 PM EST us Sheree Strong ASSOCIATE CURATOR LAB BLOOD ORDERABLES Final Resul t Performing Organization Address [facility] Co de Phone Number [facility] [address] [place] [phone] * (ABNORMAL) LORI Screen,IFA, with Reflex to Titer and Pattern (09/06/2024 2:49 PM EST) Anti Nuclear Antibody Screen POSITIVE (A) NEGATIVE [facility] Comment:LORI IFA is a first l ine screen for detecting thepresence of up to approximately 150 autoantibodies invarious autoimmune diseases. A positive LORI IFA resultis suggestive of autoimmune disease and reflexes totiter and pattern. Further laboratory testing may beconsidered if clinically indicated.For additional information, please refer tohttp://education.[employer]/faq/TBX895(This link is being provided for informational/educational purposes only.) LORI Titer 1:80(A) titer [facility] Comment:A low level LORI tite r may be present in pre-clinicalautoimmune diseases and normal individuals. Reference Range <1:40 Negative 1:40-1:80 Low Antibody Level >1:80 Elevated Antibody Level LORI Pattern Nuclear, Speckled (A) [facility] Comment:Speckled pattern is associated with mixed connectivetissue disease (MCTD), systemic lupus erythematosus(SLE), Sjogren's syndrome, dermatomyositis, andsystemic sclerosis/polymyositis overlap.AC-2,4,5,29: SpeckledInternational Consensus on LORI Patterns(https://doi.org/10.1515/bjpm-7288-2013)THIS TEST WAS PERFORMED AT:[id number] [place] [phone] JOYA MD LORI TITER 2 (REF LAB) [facility] LROI Pattern 2 [facility] LORI TITER 3 [facility] LORI PATTERN 3 [facility] Blood Venous blood specimen / Unknown 09/06/2024 2:49 PM EST 09/06/2024 4:07 PM EST us Sheree Strong ASSOCIATE CURATOR LAB BLOOD ORDERABLES Final Resul t [facility] [address] [place] [phone] [phone] * (ABNORMAL) Lipid Panel, Standard (09/06/2024 2:49 PM EST) Triglycerides 78 <150 mg/dL [facility] Comment:Desirable Triglyceri de: less than 150 mg/dLBorderline High Triglyceride 150-199 mg/dLHigh Triglyceride: 200-499 mg/dLVery High Triglyceride: greater than or equal to 5OO mg/dL Cholesterol 96 <200 mg/dL [facility] Comment:Desirable Cholestero l: less than 200 mg/dLBorderline High Cholesterol: 200-239 mg/dLHigh Cholesterol: greater than 239 mg/dL LDL Cholesterol Calculated 41 <100 mg/dL [facility] Comment:Desirable LDL: less than 100 mg/dLNear Optimal/Above Optimal LDL: 110- 129 mg/dLBorderline High LDL: 130-159 mg/dLHigh LDL: 160-189 mg/dLVery High LDL: greater than or equal to 190 mg/dL HDL Cholesterol 40(L) >40 mg/dL [facility] Comment:Desirable HDL: great er than 40 mg/dL Note: This HDL assay may give artificially low results in patients with liver disease. Blood Venous blood specimen / Unknown 09/06/2024 2:49 PM EST 09/06/2024 4:07 PM EST us Sheree Strong NP LAB BLOOD ORDERABLES Final Resul t [facility] [address] [place] [address] [phone] * (ABNORMAL) Comprehensive Metabolic Panel (09/06/2024 2:49 PM EST) Sodium 142 135 - 145 mmol/L [facility] Potassium 3.5 3.3 - 5.1 mmol/L [facility] Chloride 108 96 - 108 mmol/L [facility] Carbon Dioxide 27 22 - 29 mmol/L [facility] Anion Gap 11(L) 12 - 20 [facility] Urea Nitrogen (BUN) 11 9 - 16 mg/dL [facility] Creatinine, Serum 0.85 0.5 - 1.4 mg/dL [facility] Estimated Glomerular Filt Rate >60 [facility] Comment:Chronic Kidney Disea se: Estimated GFR < 60 mL/min/1.63p5Kaojwy Kidney Disease: Estimated GFR < 15 mL/min/1.73m2 Glucose 95 60 - 115 mg/dL [facility] Calcium 9.7 8.4 - 10.2 mg/dL [facility] Bilirubin, Total 0.3 0.0 - 1.0 mg/dL [facility] Aspartate Amino Transferase 21 5 - 31 U/L [facility] Alanine Aminotransferase 13 0 - 31 U/L [facility] Total Protein 7.5 6.5 - 8.0 g/dL [facility] Albumin Level 3.9 3.5 - 5.0 g/dL [facility] Alkaline Phosphatase 80 39 - 117 U/L [facility] Blood Venous blood specimen / Unknown 09/06/2024 2:49 PM EST 09/06/2024 4:07 PM EST Result [facility] Sheree Strong NP LAB BLOOD ORDERABLES Final Resul t [facility] [address] [place] [address] [phone] * POCT HGB A1C (09/06/2024 2:21 PM EST) Pathologist [facility] Hemoglobin A1C 5.8 4.0 - 6.0 % QC Media Lot # [id number] Lot# Expiration Date Blood 09/06/2024 2:21 PM EST Result [facility] Sheree Strong NP POINT OF CARE TEST [...] HPV mRNA E6/E7 Not Detected NOT DETECTED [facility] Comment: This test was performed using the APTIMA(R) HPV Assay ([employer] This assay detects E6/E7 viral messenger RNA (mRNA) from 14 high-risk HPV types (16,18,31,33,35,39,45,51, 52,56,58,59,66,68). For additional information please refer to: http://[employer]elligent InS[employer].Grows Up/faq/DNK607c6 (This link is being provided for informational/ educational purposes only.) Test Performed by [facility] [place], [employer] [facility], [address] [place] [address] Cuate Helm M.D., Ph.D., Director of Laboratories , [place] [id number] Please note: ??Effective 06/30/2016, HPV testing will be performed using [employer]'s APTIMA test which targets mRNA. Detecting mRNA instead of DNA, as in older methods, offers significant improvements in specificity. 09/15/2017 10:2 4 AM EST Birdie Elaine NP HISTORICAL/NON ORDERABLE LABS Fi nal Result [facility] Anywhere [address] from Last 3 Months or Most Recently Relevant to Health Maintenance Insurance * Guarantor: Estephania Bill Account Type Relation to Patient Date of Phone Billing Address Personal/Family Self 1960 [address] [place] [address] [facility] STANDARD * Guarantor: Estephania Bill Account Type Relation to Patient Date of Phone Billing Address Personal/Family Self 1960 [address] [place] [address] Care Teams Physician Representative Relationship Specialty Start Date End Date Sheree Strong NP [address] [place] [address] PCP - General Family Medicine 09/06/24
--- OUTSIDE RECORDS SUMMARY | 2024-11-14 15:56 | XMS_ITS | Encounter Summary ---
Demographics Address [address] [place] [address] Work Phone Email Address Preferred Language en Marital Status Adventism Affiliation Unknown Race Other Race Ethnic Group or Author Organization [employer] Address [address] [facility] 7t [place] [address] Care Team Providers Care Welfare Manager Name Role Phone Sheree Strong NP Primary Care Provider [phone] Reason for Visit * Reason Comments Transition Of Care (Tcm) HDF scheduled Encounter Details Date Type Department Care Team ([facility] st Contact Info) Description 11/01/2024 Patient Outreach [facility] MEDICINE [address] [place] [address] Sheree Strong NP [address] [place] [address] Transition Of Care (Tcm) (HDF scheduled) Social [...] Pests such as bugs, ants, or mice;Lead [place] or Pipes;Inadequate heat 09/06/2024 Food Insecurity Answer [...] 11/01/24 0910 Hospital Discharges and Admission for [facility] Type of Visit Hospital Admission Date of Admission/Visit 10/25/24 Date of Discharge 11/08/24 Facility [facility] Rehab Diagnosis Stroke Follow-Up Actions Follow-Up Needed Provider appointment Follow-Up Outcome Spoke to Caregiver Initial Contact Date 11/01/24 Received incoming call from the [facility] Line. MAC[facility] [phone] Patient has been scheduled for an HDF appointment on 11/17/2024 at 10:[address] Cintia QUIJANO requested discharge summaries to be faxed to the Care Management Department at [phone]. CCwill follow up on discharge summary following patient's discharge. documented in this encounter Plan of Treatment Upcoming Encounters Date Type Department Care Team (Late st Contact Info) Description 11/17/2024 10:00 AM EST Office Visit [facility] MEDICINE [address] [place] [address] Name, MD Dante [address] [place] [address] 02/16/2025 2:00 PM EDT Office Visit [facility] OPTOMETRY [address] [place] [address] Martine Benavidez, LEROY [address] [place] [address] documented as of this encounter Visit Diagnoses Not on filedocumented in this encounter Additional Health Concerns Assessment Noted Time PHQ-9 Depression Total Score: 17 024 2:44 PM EST documented as of this encounter Care Teams Welfare Manager Relationship Specialty Start Date End Date Sheree Strong NP [address] [place] [address] PCP - General Family Medicine 09/06/24 documented as of this encounter
--- OUTSIDE RECORDS SUMMARY | 2024-11-14 15:56 | XMS_ITS | Encounter Summary ---
Demographics Address [address] [place] [address] Work Phone Email Address Preferred Language en Marital Status Judaism Affiliation Unknown Race Other Race Ethnic Group or Author Organization [employer] Address [address] [facility] 7t [place] [address] Care Team Providers Care Morning Nanny Name Role Phone Sheree Strong LISHA Primary Care Provider [phone] Encounter Details Date Type Department Care Team ([facility] st Contact Info) Description 10/26/2024 Telephone [facility] MEDICINE [address] [place], [place] [phone] Cathy Lord, RN Social History Tobacco Use [...] Pests such as bugs, ants, or mice;Lead [place] or Pipes;Inadequate heat 09/06/2024 Food Insecurity Answer [...] to do status check post discharge from [facility] for CVA, pt was admitted from 10/19/24-. Pt was transferred to [facility]( short Term Inpatient). No answer, lvm to return call andask to speak to [place] team nurses. documented in this encounter Plan of Treatment Upcoming Encounters Date Type Department Care Team (Late st Contact Info) Description 11/17/2024 10:00 AM EST Office Visit [facility] MEDICINE [address] [place] [address] Name, MD Dante [address] [place] [address] 02/16/2025 2:00 PM EDT Office Visit [facility] OPTOMETRY [address] [place] [address] Pramod, Martine, OD [address] [place] [address] documented as of this encounter Visit Diagnoses Not on filedocumented in this encounter Additional Health Concerns Assessment Noted Time PHQ-9 Depression Total Score: 17 024 2:44 PM EST documented as of this encounter Care Teams Morning Nanny Relationship Specialty Start Date End Date Sheree Strong NP [address] [place] [address] PCP - General Family Medicine 09/06/24 documented as of this encounter
--- OUTSIDE RECORDS SUMMARY | 2024-11-14 15:56 | XMS_ITS | Encounter Summary ---
Demographics Address [address] [place] [address] Mobile Phone Preferred Language en Marital Status Presybeterian Affiliation Unknown Race Other Race Ethnic Group or Author Organization [employer] Address [address] [place] [address] Care Team Providers Care Drag Out Worker Name Role Phone Sheree Strong BISHOP Primary Care Provider [phone] Encounter Details Date Type Department Care Team (Late st Contact Info) Description 10/31/2024 Plan of Care Documentation [facility] Inpatient Rehab [address] [place] [address] Social History Tobacco Use Types [...] / Admitting Diagnosis: CVA (cerebral vascular accident) ([facility]) [I63.9] Admit Date/Time: 10/25/2024 1:27 PM Primary Rehab (Etiologic) Diagnosis: Patient Active Problem List Diagnosis Stroke (CMS/HCC) Diabetes (CMS/HCC) CVA (cerebral vascular accident) ([facility]) Noncompliance HTN (hypertension) TIA (transient ischemic attack) Team Discussion UPDATES: Physician: 63-year-old female past medical history significant for coronary artery disease status post CABG in 2019 on aspirin and Plavix, HFrEF EF 30-35% which improved to 60%, bilateral renal stenosis, hypertension, hyperlipidemia, COPD, anxiety, who presented to [facility]'s emergency department with intermittent left-sided chest [...] PT: 2 weeks Mod I. Steadying A CRUDE OIL DRIVER: Min-Mod A memory, attention,. Problem solving. 2 [...] appointment. Pt states she applied for the MARKETING STRATEGY MANAGER program with [employer], meeting was scheduled for tomorrow. Pt has three adultsons, 2 are local but work senior software engineer analytics. Pts sister is primary support but also works senior software engineer analytics. Pt states her partner lives in [place] and will visit 1- 2x/week. HCP on [...] CARE Score - Sit to Stand: 4 Chair/Irw-ab-Lnazs Transfer Assistance Needed: Incidental touching Physical Assistance Level: No physical assistance Comment: RW CARE Score - Chair/Emf-lq-Ywszd Transfer: 4 Car Transfer Assistance Needed: Incidental [...] verbal cues. Completed medication log with this screen writer. Explained rationale for use as external [...] 'description' as word finding strategy.Pt verbalized understanding. CRUDE OIL DRIVER Assessment Results: Cognitive impairments Prognosis: Good Barriers to Discharge: Evaluation/Treatment Tolerance: Patient tolerated treatment well Plan Treatment/Interventions: Cognitive linguistic functioning CRUDE OIL DRIVER Plan: Skilled CRUDE OIL DRIVER Discharge Recommendations: (TBD) Diet Recommendations: Regular/thin Barriers to Discharge: Veterinary Medicine Doctor's Assessment Adult diet [facility]; Diabetic; 75 gm carb/Meal Physician Attestation: I, Juliann Man DO, have led the team conference and agree with the results, findings, and decisions made by the interdisciplinary team. documented in this encounter Plan of Treatment Upcoming Encounters Date Type Department Care Team (Late st Contact Info) Description 11/16/2024 2:30 PM EST Evaluation [facility] [address] [phone] Lore Cortes, PT 11/23/2024 2:30 PM EST Treatment [address] [address] Lore Cortes, PT 11/28/2024 12:45 PM EST Treatment [address] [address] Deysi Grijalva, PT 11/30/2024 10:30 AM EST Evaluation [facility] Speech [address] [address] Alea Trejo, CRUDE OIL DRIVER 12/07/2024 10:45 AM EST Treatment [facility] Speech [address] [address] Alea Trejo, CRUDE OIL DRIVER 12/14/2024 10:45 AM EST Treatment [facility] Speech [address] [address] Alea Trejo, CRUDE OIL DRIVER documented as of this encounter Visit Diagnoses Not on filedocumented in this encounter Additional Health Concerns Assessment Noted Time PHQ-9 Depression Total Score: 1 10/25/19 2:42 PM EST documented as of this encounter Care Teams Drag Out Worker Relationship Specialty Start Date End Date Sheree Strong FNP [address] [place] [address] PCP - General Nurse Practitioner 10/24/24 documented as of this encounter
--- OUTSIDE RECORDS SUMMARY | 2024-11-14 15:56 | XMS_ITS | Encounter Summary ---
Demographics Address [address] [place] [address] Work Phone Email Address Preferred Language en Marital Status Caodaism Affiliation Unknown Race Other Race Ethnic Group or Author Organization [employer] Address [address] [facility] 7t [place] [address] Care Team Providers Care Tire Design Engineer Name Role Phone SyedSheree anand LISHA Primary Care Provider [phone] Reason for Visit * Reason Onset Date Comments Chart Prep 11/01/2024 Encounter Details Date Type Department Care Team ([facility] st Contact Info) Description 11/01/2024 Telephone [facility] [address] [place], [place] [phone] Zakia Connolly [place] Chart Prep Social History [...] Pests such as bugs, ants, or mice;Lead [place] or Pipes;Inadequate heat 09/06/2024 Food Insecurity Answer [...] 10:00 AM EST Office Visit [facility] MEDICINE [address] [place] [address] Name, MD Dante [address] [place] [address] 02/16/2025 2:00 PM EDT Office Visit [facility] OPTOMETRY [address] [place] [address] Martine Benavidez, LEROY [address] [place] [address] documented as of this encounter Visit Diagnoses Not on filedocumented in this encounter Additional Health Concerns Assessment Noted Time PHQ-9 Depression Total Score: 17 024 2:44 PM EST documented as of this encounter Care Teams Tire Design Engineer Relationship Specialty Start Date End Date Sheree Strong NP [address] [place] [address] PCP - General Family Medicine 09/06/24 documented as of this encounter
--- OUTSIDE RECORDS SUMMARY | 2024-11-14 15:57 | XMS_ITS | Encounter Summary ---
Demographics Address [address] [place] [address] Work Phone Email Address Preferred Language en Marital Status Gnosticist Affiliation Unknown Race Other Race Ethnic Group or Author Organization [employer] Address [address] 7t [place] [address] Care Team Providers Care Art Museum Aide Name Role Phone SyedSheree anand LISHA Primary Care Provider [phone] Reason for Visit * Reason Comments Med Refill Encounter Details Date Type Department Care Team (Late st Contact Info) Description 11/13/2024 Refill [facility] [address] [place] [phone] Emma De La Cruz, ANP [address] [place], [place] [phone] Arteriosclerosis of coronary artery; Iron deficiency anemia, unspecified iron deficiency anemia type Social History Tobacco Use Types Packs/Day Years [...] Pests such as bugs, ants, or mice;Lead [place] or Pipes;Inadequate heat 09/06/2024 Food Insecurity Answer [...] AM EST Office Visit [facility] MEDICINE [address] [place] [address] Name, MD Dante [address] [place] [address] 02/16/2025 2:00 PM EDT Office Visit [facility] OPTOMETRY [address] [place] [address] Pramod, Martine, OD [address] [place] [address] documented as of this encounter Visit Diagnoses Diagnosis Arteriosclerosis of coronary artery Iron deficiency anemia, unspecified iron deficiency anemia type documented in this encounter Additional Health Concerns Assessment Noted Time PHQ-9 Depression Total Score: 17 024 2:44 PM EST documented as of this encounter Care Teams Art Museum Aide Relationship Specialty Start Date End Date Sheree Strong NP [address] [place] [address] PCP - General Family Medicine 09/06/24 documented as of this encounter
--- OUTSIDE RECORDS SUMMARY | 2024-11-14 15:57 | XMS_ITS | Encounter Summary ---
Demographics Address [address] [place] [address] Work Phone Email Address Preferred Language en Marital Status Advent Affiliation Unknown Race Other Race Ethnic Group or Author Organization [employer] Address [address] [facility] 7t [place] [address] Care Team Providers Care Tank Tester Name Role Phone SyedSheree anand LISHA Primary Care Provider [phone] Encounter Details Date Type Department Care Team (Latest Contact Info) Description 11/09/2024 9:15 AM EST Procedure Visit [facility] MEDICINE [address] [place], [place] [phone] Dori Rhodes FNP [address] [place], [place] [phone] Routine cervical smear (Primary Dx); Urinary incontinence, [...] Pests such as bugs, ants, or mice;Lead [place] or Pipes;Inadequate heat 09/06/2024 Food Insecurity Answer [...] 9:25 AM EST documented in this encounter Progress Notes * BISHOP Rodriguez - 11/09/2024 9:15 AM EST Images from the original note were not included. Subjective Patient ID: Estephania Bill is a 63 y.o. female who presents for routine pap smear . Last pap smear in 2017 patient reports result was normal negative HPV. Denies STI history, vaginal itching, odor, or unusual discharge. Reports urinary frequency leaking, and urgency. Postmenopausal,last menses over 10 years ago, reports discomforting hot flashes and sweating. Three children. Reports not sexually active. Lives alone, environment is not safe, street drugs and gunshots planning tomove soon. 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 History of painful right breast mass, pending diagnostic mammogram reports missed appointment because she was on admission in the hospital. Reports strong family hx of breast cancer. Patient to call and rebook missed mammogram appointment. Elevated BP at this visit patient reports she had not taken her BP meds this morning before coming to the clinic Review of Systems Constitutional: Negative for fever and unexpected weight change. HENT: Negative for sore throat. Respiratory: Negative for cough, chest tightness, shortness of breath and wheezing. Cardiovascular: Negative for chest pain, palpitations and leg swelling. Gastrointestinal: Negative for abdominal pain, nausea and vomiting. Genitourinary: Positive for frequency and urgency. Negative for dyspareunia, dysuria, genital sores, menstrual problem, pelvic pain, vaginal bleeding, vaginal discharge and vaginal pain. Skin: Right painful breast mass Neurological: Negative for dizziness, facial asymmetry, weakness, light- headedness, numbness and headaches. Psychiatric/Behavioral: Negative for sleep disturbance and suicidal ideas. Objective Visit Vitals BP (!) 142/90 (BP Location: Right arm, Patient Position: Sitting, BP Cuff Size: Adult) Pulse 79 Temp 98 ??F (36.7 ??C) (Oral) Resp 20 Ht 5' (1.524 m) Wt 112 lb 4 oz (50.9 kg) BMI 21.92 kg/m?? Smoking Status Former BSA 1.47 m?? POCT urinalysis Component Ref Range & Units 1 d ago (11/09/24) Color, UA Light Yellow Clarity, UA Clear Glucose, UA Negative Bilirubin, UA Negative Ketones, UA Negative Spec Grav, UA 1.000 Blood, UA Negative, None Detected Negative pH, UA 6.5 Protein, UA Negative Urobilinogen, UA 1.0 Leukocytes, UA Negative, Rare, Trace Negative Nitrite, UA Negative, None Detected Negative Physical Exam Exam conducted with a urology teacher present (Airam Lynn). Constitutional: Appearance: Normal appearance. She is not ill-appearing. HENT: Head: Atraumatic. Cardiovascular: Rate and Rhythm: Normal rate. Pulses: Normal pulses. Heart sounds: No murmur heard. Pulmonary: Effort: Pulmonary effort is normal. Breath sounds: Normal breath sounds. No wheezing. Chest: Chest wall: No tenderness. Breasts: Alvin Score is 5. Right: Mass and tenderness present. No nipple discharge. Abdominal: Tenderness: There is no abdominal tenderness. Genitourinary: General: Normal vulva. Pubic Area: No rash or pubic lice. Labia: Right: No rash, tenderness, lesion or injury. Left: No rash, tenderness, lesion or injury. Vagina: Normal. No signs of injury and foreign body. No vaginal discharge, erythema, tenderness, bleeding or lesions. Cervix: No cervical motion tenderness, discharge, friability, lesion, erythema, cervical bleeding or eversion. Uterus: Normal. Not enlarged and not tender. Adnexa: Right adnexa normal and left adnexa normal. Right: No mass, tenderness or fullness. Left: No mass, tenderness or fullness. Skin: General: Skin is warm. Capillary Refill: Capillary refill takes less than 2 seconds. Comments: Tender sub areolar mass of the right breast Neurological: General: No focal deficit present. Mental Status: She is alert and oriented to person, place, and time. Motor: No weakness. Gait: Gait normal. Psychiatric: Mood and Affect: Mood normal. Behavior: Behavior normal. Thought Content: Thought content normal. Problem List Items Addressed This Visit Prediabetes Relevant Orders POCT Glucose (Completed) Routine cervical smear - Primary Relevant Orders Pap Smear Urinary incontinence Current Assessment & Plan New onset UA negative Will send culture and treat as indicated Relevant Orders POCT Urinalysis (Completed) Culture, Urine, Routine (Completed) Abnormal breast exam Current Assessment & Plan Breast examination Bilateral breast symmetrical soft and [...] missed mammogram and ultra Normal pelvic exam Menopausal disorder Current Assessment & Plan Hot flashes and night sweats Hormone replacement therapy contraindicated, offered trial of acupuncture to start. Will consider consider non hormonal medications if acupuncture is not helpful [facility] PIER MASTER ASSISTANT Attestation PIER MASTER ASSISTANT Resident Attestation: Patient was seen and evaluated by Dori ALAS , in collaboration with Airam Lynn CNM who has reviewed my assessment and plan. I, Airam Lynn CNM, have reviewed the resident's note and agree with the assessment & plan of care as documented above. documented in this encounter Miscellaneous Notes * Assessment & Plan Note - BISHOP Rodriguez - 11/12/2024 1:37 PM ESTAssociated Problem(s): Urinary incontinence New onset UA negative Will send culture and treat as indicated * Assessment & Plan Note - BISHOP [...] Description 11/17/2024 10:00 AM EST Office Visit [facility] MEDIC[facility] [address] [place] [address] Name, MD Dante [address] [place] [address] 02/16/2025 2:00 PM EDT Office Visit [facility] OPTOMETRY [address] [place], [place] [phone] Pramod, Martine, OD [address] [place] [address] Scheduled Orders Name Type Priority Associated Diagnoses [...] 11:30 AM EST 11/09/2024 1:08 PM EST Comment:[facility] - 11/10/2024 10:44 AM EST Urine Culture No growth. Specimen Source: Urine clean catch us Dori Rhodes [facility] MICROBIOLOGY - GENERAL ORD ERABLES Final Result [facility] [address] [place] [address] [phone] * POCT Urinalysis (11/09/2024 11:14 AM [...] Date Urine 11/09/2024 11:1 4 AM EST [facility] POINT OF CARE TEST ENTER/EDIT ORDERABLES Final Result * POCT Glucose (11/09/2024 9:32 AM EST) Glucose Blood, POC 101 60 - 200 mg/dL QC Media Lot # [id number] Lot# Expiration Date Blood Capillary blood specimen / Unknown 11/09/2024 9:32 AM EST [facility] TEST ENTER/EDIT ORDERABLES [...] documented as of this encounter Care Teams Tank Tester Relationship Specialty Start Date End Date Sheree Strong NP [address] [place] [address] PCP - General Family Medicine 09/06/24 documented as of this encounter
--- OUTSIDE RECORDS SUMMARY | 2024-11-14 15:57 | XMS_ITS | Clinical Summary ---
Demographics Address [address] [place] [address] Mobile Phone Preferred Language en Marital Status Alevism Affiliation Unknown Race Other Race Ethnic Group or Author Organization [facility] Address [address] [place] [address] Phone Care Team Providers Care Dispatcher Radio Name Role Phone TaeSheree BISHOP Primary Care Provider [phone] Allergies No known active allergies Medications Medication [...] Team Description 11/07/2024 Plan of Care Documentation [facility] [address] [place] [phone] 11/03/2024 12:50 PM EST - 11/03/2024 9:01 PM EST Emergency [facility] Emergency [address] [place] [phone] Elijah Broderick MD Cheng, Ting Ho Danny, DO Left facial numbness (Primary Dx); Cerebrovascular accident (CVA), unspecified mechanism (CMS/HCC) Discharge Disposition: Home or Self Care 10/31/2024 Plan of Care Documentation [facility] [address] [place] [phone] 10/25/2024 1:27 PM EST - 11/08/2024 11:35 AM EST Hospital Encounter [facility] [address] [place] [phone] Juliann Man DO Cerebrovascular accident (CVA), unspecified [...] Info) Description 11/16/2024 2:30 PM EST Evaluation [facility] [address] [phone] Lore Cortes, PT 11/23/2024 2:30 PM EST Treatment [facility] [address] [phone] Lore Cortes, PT 11/28/2024 12:45 PM EST Treatment [facility] [address] [phone] Deysi Grijalva, ROGER 11/30/2024 10:30 AM EST Evaluation [facility] [address] [phone] Alea Trejo, BENEDICT 12/07/2024 10:45 AM EST Treatment [facility] [address] [phone] Alea Trejo PODIATRIC MEDICINE DOCTOR 12/14/2024 10:45 AM EST Treatment [facility] [address] [phone] Alea Trejo, PODIATRIC MEDICINE DOCTOR Health Maintenance Due Date Last Done Comments [...] ECG 12-LEAD STAT 11/03/2024 1:23 PM EST [place] [facility] 30-74 MINUTES Routine 11/03/2024 12:47 [...] BLOOD Routine 10/25/2024 4: 24 PM EST ECG OUTSIDE 10/25/2024 from Last 3 Months Results * Routine [...] of50 resultswithin the time period is included. [facility] Glucose POCT 96 70 - 100 mg/dL 11/07/2024 7:19 AM EST [facility] Blood Capillary blood specimen / Unknown 11/07/2024 7:18 AM EST 11/07/2024 7:21 AM EST Juliann Man DO LAB POINT OF CARE TEST DOCKED DEVICE UNSOLICITED RESULTS Performing Organization Address [facility]/ZIP Co de Phone Number [facility] [address] [place] [address], * Troponin I high sensitivity (NOW and then in 1 hour) (11/03/2024 7:24 PM EST) [facility] High Sensitivity Troponin I 7 <=54 ng/L LAB CHEMISTRY METHOD 11/03/2024 8:21 PM EST [facility] Blood Venous blood specimen / Unknown Venipuncture / Unknown 11/03/2024 7:24 PM EST 11/03/2024 7:47 PM EST Narrative [facility] - 11/03/2024 8:21 PM EST High levels of biotin in samples may falsely decrease hsTroponin values. ??Use caution when interpreting hsTroponin results in patients taking biotin who exhibit renal impairment (eGFR <60) or in patients taking more than 20 mg/day of biotin. Fernanda EATON LAB BLOOD ORDERABLES Performing Organization Address [facility]/ZIP Co de Phone Number [facility] [address] [place] [address], * MR Brain wo Contrast (11/03/2024 6:56 [...] EST No evidence of active pulmonary disease. [id number] -------- FINAL REPORT -------- Dictated By: Dell Abraham Dictated Date: 11/03/2024 16:23 ET Assigned Physician: Dell Abraham Reviewed and Electronically Signed By: Dell Abraham Signed Date: 11/03/2024 16:23 ET Workstation ID: [id number] Transcribed By: Self Edit Transcribed Date: 11/03/2024 [...] IMPRESSION: No evidence of active pulmonary disease. [id number] -------- FINAL REPORT -------- Dictated By: Dell Abraham Dictated Date: 11/03/2024 16:23 ET Assigned Physician: Dell Abraham Reviewed and Electronically Signed By: Dell Abraham Signed Date: 11/03/2024 16:23 ET Workstation ID: [id number] Transcribed By: Self Edit Transcribed Date: 11/03/2024 16:23 ET Fernanda ETAON IMG XR PROCEDURES * (ABNORMAL) CBC auto differential (11/03/2024 2:02 PM EST) Only the most recent of2 resultswithin the time period is included. WBC 6.9 4.8 - 10.8 K/[facility] LAB HEMETOLOGY METHOD 11/03/2024 2:13 PM EST [facility] RBC 4.60 3.80 - 4.80 M/mcL LAB HEMETOLOGY METHOD 11/03/2024 2:13 PM [facility] Hemoglobin 11.0(L) 11.5 - 16.0 g/dL LAB HEMETOLOGY METHOD 11/03/2024 2:13 PM [facility] Hematocrit 36.1 35.0 - 47.0 % LAB HEMETOLOGY METHOD 11/03/2024 2:13 PM [facility] MCV 79.2 79.0 - 98.0 FL LAB HEMETOLOGY METHOD 11/03/2024 2:13 PM [facility] MCH 24.1(L) 27.0 - 32.0 pcg LAB HEMETOLOGY METHOD 11/03/2024 2:13 PM [facility] MCHC 30.5(L) 32.0 - 37.0 g/dL LAB HEMETOLOGY METHOD 11/03/2024 2:13 PM [facility] RDW 17.0(H) 11.0 - 15.0 % LAB HEMETOLOGY METHOD 11/03/2024 2:13 PM [facility] Platelets 224 130 - 400 K/mcL LAB HEMETOLOGY METHOD 11/03/2024 2:13 PM [facility] MPV 10.1 7.0 - 11.0 FL LAB HEMETOLOGY METHOD 11/03/2024 2:13 PM [facility] NRBC 0.0 <1.0 % LAB HEMETOLOGY METHOD 11/03/2024 2:13 PM [facility] NRBC Absolute 0.00 <0.10 K/mcL LAB HEMETOLOGY METHOD 11/03/2024 2:13 PM [facility] Neutrophils Relative 49.9 % LAB HEMETOLOGY METHOD 11/03/2024 2:13 PM [facility] Lymphocytes Relative 36.7 % LAB HEMETOLOGY METHOD 11/03/2024 2:13 PM EST [facility] Monocytes Relative 9.9 % LAB HEMETOLOGY METHOD 11/03/2024 2:13 PM [facility] Eosinophils Relative 2.0 % LAB HEMETOLOGY METHOD 11/03/2024 2:13 PM [facility] Basophils Relative 0.3 % LAB HEMETOLOGY METHOD 11/03/2024 2:13 PM [facility] Immature Granulocytes Relative 1.2 % LAB HEMETOLOGY METHOD 11/03/2024 2:13 PM [facility] Neutrophils Absolute 3.43 1.50 - 7.00 K/mcL LAB HEMETOLOGY METHOD 11/03/2024 2:13 PM [facility] Lymphocytes Absolute 2.52 1.00 - 5.00 K/mcL LAB HEMETOLOGY METHOD 11/03/2024 2:13 PM [facility] Monocytes Absolute 0.68 0.20 - 1.00 K/mcL LAB HEMETOLOGY METHOD 11/03/2024 2:13 PM EST [facility] Eosinophils Absolute 0.14 0.00 - 0.50 K/mcL LAB HEMETOLOGY METHOD 11/03/2024 2:13 PM EST [facility] Basophils Absolute 0.02 0.00 - 0.20 K/mcL LAB HEMETOLOGY METHOD 11/03/2024 2:13 PM [facility] Immature Granulocytes Absolute 0.08(H) 0.00 - 0.03 K/mcL LAB HEMETOLOGY METHOD 11/03/2024 2:13 PM [facility] Blood Venous blood specimen / Unknown Venipuncture / Unknown 11/03/2024 2:02 PM EST 11/03/2024 2:10 PM EST Fernanda EATON LAB BLOOD ORDERABLES [facility] [address] [place] [address], [place] [phone] * Prolactin (11/03/2024 2:02 PM EST) Prolactin 7.40 See Comment ng/mL LAB CHEMISTRY METHOD 11/04/2024 1:00 PM EST [facility] Comment: Prolactin Reference Ranges (ng/mL) ??Non ?2.2 - ??30.3 ? 8.1 - 347.6 ??Postmenopausal 0.7 - ??31.5 Blood Venous blood specimen / Unknown Venipuncture / Unknown 11/03/2024 2:02 PM EST 11/03/2024 2:10 PM EST Trenton EATON LAB BLOOD ORDERABLES Performing Organization Address [facility]/ZIP Co de Phone Number [facility] [address] [place] [address], * APTT (11/03/2024 2:02 PM EST) Pathologist [facility] aPTT 29.6 24.1 - 39.3 sec LAB COAGULATION METHOD 11/03/2024 2:22 PM EST [facility] Blood Venous blood specimen / Unknown Venipuncture / Unknown 11/03/2024 2:02 PM EST 11/03/2024 2:10 PM EST Fernanda EATON LAB BLOOD ORDERABLES [facility] [address] [place] [address], [place] [phone] * Protime-INR (11/03/2024 2:02 PM EST) Protime 12.0 10.6 - 13.9 sec LAB COAGULATION METHOD 11/03/2024 2:22 PM EST [facility] INR 1.0 LAB COAGULATION METHOD 11/03/2024 2:22 PM EST [facility] Blood Venous blood specimen / Unknown Venipuncture / Unknown 11/03/2024 2:02 PM EST 11/03/2024 2:10 PM EST Fernanda Montes De Oca PA LAB BLOOD ORDERABLES Performing Organization Address City/[facility]/ZIP Co de Phone Number [facility] [address] [place] [address], [place] [phone] * Magnesium (11/03/2024 2:02 PM EST) Magnesium 1.9 1.9 - 2.6 mg/dL LAB CHEMISTRY METHOD 11/04/2024 12:59 PM [facility] Blood Venous blood specimen / Unknown Venipuncture / Unknown 11/03/2024 2:02 PM EST 11/03/2024 2:10 PM EST Trenton EATON LAB BLOOD ORDERABLES Performing Organization Address City/[facility]/ZIP Co de Phone Number [facility] [address] [place] [address], [place] [phone] * Comprehensive metabolic panel (11/03/2024 2:02 PM EST) Only the most recent of3 resultswithin the time period is included. Sodium 134 133 - 145 mmol/L LAB CHEMISTRY METHOD 11/03/2024 2:45 PM [facility] Potassium 4.1 3.5 - 5.5 mmol/L LAB CHEMISTRY METHOD 11/03/2024 2:45 PM [facility] Chloride 102 96 - 110 mmol/L LAB CHEMISTRY METHOD 11/03/2024 2:45 PM [facility] CO2 27 21 - 32 mmol/L LAB CHEMISTRY METHOD 11/03/2024 2:45 PM [facility] Anion Gap 5 3 - 11 LAB CHEMISTRY METHOD 11/03/2024 2:45 PM [facility] Glucose 93 70 - 100 mg/dL LAB CHEMISTRY METHOD 11/03/2024 2:45 PM [facility] BUN 23 5 - 25 mg/dL LAB CHEMISTRY METHOD 11/03/2024 2:45 PM [facility] Creatinine 0.80 0.50 - 1.10 mg/dL LAB CHEMISTRY METHOD 11/03/2024 2:45 PM [facility] eGFR 83 >=60 mL/min/1. 73m2 LAB CHEMISTRY METHOD 11/03/2024 2:45 PM [facility] Comment:Calculation based on the??Chronic Kidney Disease Epidemiology Collaboration (CKD-EPI) equation refit??without adjustment for race. BUN/Creatinine Ratio 28.8 LAB CHEMISTRY METHOD 11/03/2024 2:45 PM [facility] Calcium 8.6 8.5 - 10.5 mg/dL LAB CHEMISTRY METHOD 11/03/2024 2:45 PM [facility] AST (SGOT) 20 10 - 42 unit/L LAB CHEMISTRY METHOD 11/03/2024 2:45 PM [facility] ALT (SGPT) 28 10 - 60 unit/L LAB CHEMISTRY METHOD 11/03/2024 2:45 PM [facility] Alkaline Phosphatase 72 42 - 121 unit/L LAB CHEMISTRY METHOD 11/03/2024 2:45 PM [facility] Total Protein 6.3 6.0 - 8.0 g/dL LAB CHEMISTRY METHOD 11/03/2024 2:45 PM [facility] Albumin 3.2 3.2 - 5.0 g/dL LAB CHEMISTRY METHOD 11/03/2024 2:45 PM [facility] Total Bilirubin 0.4 0.0 - 1.4 mg/dL LAB CHEMISTRY METHOD 11/03/2024 2:45 PM [facility] Blood Venous blood specimen / Unknown Venipuncture / Unknown 11/03/2024 2:02 PM EST 11/03/2024 2:10 PM EST Fernanda EATON LAB BLOOD ORDERABLES [facility] [address] [place] [address], [place] [phone] * CT Angio Head/Neck Stroke wo and/or [...] Signed Date: 11/03/2024 14:14 ET Workstation ID: [id number] Transcribed By: Self Edit Transcribed Date: 11/03/2024 [...] reconstructions performed on a computer workstation. Scanner: ByteLight 64slice VCT Dose reduction technique: ASIR (Adaptive [...] reconstructions performed on a computer workstation. Scanner: ByteLight 64slice VCT Dose reduction technique: ASIR (Adaptive [...] Signed Date: 11/03/2024 14:14 ET Workstation ID: [id number] Transcribed By: Self Edit Transcribed Date: 11/03/2024 [...] GEMUSE QTc 465 ms GEMUSE P Wave Williams 57 degrees GEMUSE R Williams -32 degrees GEMUSE T Williams 74 degrees GEMUSE ECG Interpretation Normal sinus [...] EST Fernanda EATON ECG ORDERABLES GEMUSE * [place] CRITICAL CARE 30-74 MINUTES (11/03/2024 12:47 PM EST) Narrative Elijah Broderick MD - 11/03/2024 12:47 PM EST UMA Ryan ? 11/03/2024 ??9:22 PM Critical Care Performed by: UMA Ryan Authorized by: Elijah Broderick MD ?? 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 -------- FINAL REPORT -------- Dictated By: Dell Abraham Dictated Date: 11/03/2024 13:35 ET Assigned Physician: Dell Abraham Reviewed and Electronically Signed By: Dell Abraham Signed Date: 11/03/2024 13:38 ET Workstation ID: [id number] Transcribed By: Self Edit Transcribed Date: 11/03/2024 13:35 ET Narrative 11/03/2024 1:38 PM EST INDICATION: Left-sided weakness and facial numbness Technique: Axial images were obtained from the skull base to the vertex without contrast enhancement. Scanner: GE LightSpeed 64 slice [...] for the office ofTRENTON BECK in the [employer] system on11/03/2024 1:38 PM, Message ID [id number]. -------- FINAL REPORT -------- Dictated By: Dell Abraham Dictated Date: 11/03/2024 13:35 ET Assigned Physician: Dell Abraham Reviewed and Electronically Signed By: Dell Abraham Signed Date: 11/03/2024 13:38 ET Workstation ID: [id number] Transcribed By: Self Edit Transcribed Date: 11/03/2024 13:35 ET Trenton EATON IMG CT PROCEDURES * ECG-Annotated (11/03/2024) Only the most recent of2 resultswithin the time period is included. Provider Onbase ECG ORDERABLES * (ABNORMAL) Complete blood count (10/29/2024 6:03 AM EST) WBC 4.9 4.8 - 10.8 K/mcL LAB HEMETOLOGY METHOD 10/29/2024 7:15 AM EST [facility] RBC 4.60 3.80 - 4.80 M/mcL LAB HEMETOLOGY METHOD 10/29/2024 7:15 AM [facility] Hemoglobin 10.8(L) 11.5 - 16.0 g/dL LAB HEMETOLOGY METHOD 10/29/2024 7:15 AM EST [facility] Hematocrit 35.7 35.0 - 47.0 % LAB HEMETOLOGY METHOD 10/29/2024 7:15 AM EST [facility] MCV 78.1(L) 79.0 - 98.0 FL LAB HEMETOLOGY METHOD 10/29/2024 7:15 AM [facility] MCH 23.6(L) 27.0 - 32.0 pcg LAB HEMETOLOGY METHOD 10/29/2024 7:15 AM EST [facility] MCHC 30.3(L) 32.0 - 37.0 g/dL LAB HEMETOLOGY METHOD 10/29/2024 7:15 AM [facility] RDW 16.0(H) 11.0 - 15.0 % LAB HEMETOLOGY METHOD 10/29/2024 7:15 AM [facility] Platelets 227 130 - 400 K/mcL LAB HEMETOLOGY METHOD 10/29/2024 7:15 AM EST [facility] MPV 11.0 7.0 - 11.0 FL LAB HEMETOLOGY METHOD 10/29/2024 7:15 AM [facility] NRBC 0.0 <1.0 % LAB HEMETOLOGY METHOD 10/29/2024 7:15 AM [facility] NRBC Absolute 0.00 <0.10 K/mcL LAB HEMETOLOGY METHOD 10/29/2024 7:15 AM EST [facility] Blood Venous blood specimen / Unknown Venipuncture / Unknown 10/29/2024 6:03 AM EST 10/29/2024 6:41 AM EST Trenton EATON LAB BLOOD ORDERABLES [facility] [address] [place] [address], * XR Shoulder 2+ Views Right (10/26/2024 2:22 PM EST) Anatomical Region Laterality Modality Upper Extremities, Shoulder Right Radi ographic Imaging 10/26/2024 2:24 PM EST Impressions 10/26/2024 2:25 PM EST No shoulder fracture or dislocation. [id number] -------- FINAL REPORT -------- Dictated By: Dell Abraham Dictated Date: 10/26/2024 14:24 ET Assigned Physician: Dell Abraham Reviewed and Electronically Signed By: Dell Abraham Signed Date: 10/26/2024 14:25 ET Workstation ID: [id number] Transcribed By: Self Edit Transcribed Date: 10/26/2024 [...] changes. IMPRESSION: No shoulder fracture or dislocation. [id number] -------- FINAL REPORT -------- Dictated By: Dell Abraham Dictated Date: 10/26/2024 14:24 ET Assigned Physician: Dell Abraham Reviewed and Electronically Signed By: Dell Abraham Signed Date: 10/26/2024 14:25 ET Workstation ID: [id number] Transcribed By: Self Edit Transcribed Date: 10/26/2024 14:24 ET Juliann Man DO IMG XR PROCEDURES * Hemoglobin A1c (10/26/2024 6:38 AM EST) Hemoglobin A1C 6.1 <6.5 % LAB CHEMISTRY METHOD 10/26/2024 1:05 PM EST [facility] Mean Bld Glu Estim. 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
--- OUTSIDE RECORDS SUMMARY | 2024-11-14 15:58 | XMS_ITS | Encounter Summary ---
Demographics Address [address] [place] [address] Mobile Phone Preferred Language en Marital Status Congregational Affiliation Unknown Race Other Race Ethnic Group or Author Organization [employer] Address [address] [place] [address] Care Team Providers Care It Support Manager Name Role Phone Sheree Strong BISHOP Primary Care Provider [phone] Reason for Referral * Consultation (Routine) - Authorized Specialty Diagnoses / Procedures Referred By Jackelyn tobin Referred To Contact Speech Pathology / Speech Therapy Diagnoses Cerebrovascular accident (CVA), unspecified mechanism (CMS/HCC) Juliann Man DO [address] [place] [address] [facility] Speech Therapy [address] [place] [phone] Referral ID Status Reason Start Date Expiration Date Visits Requested Visits Authorized [id number] Authorized Specialty Services Required 10/31/2024 10/31/2025 35 35 * Consultation (Routine) - Authorized Specialty Diagnoses / Procedures Referred By Jackelyn tobin Referred To Contact Physical Therapy Diagnoses Cerebrovascular accident (CVA), unspecified mechanism (CMS/HCC) Juliann Man DO [address] [place] [address] [facility] Physical Therapy [address] [phone] Referral ID Status Reason Start Date Expiration Date Visits Requested Visits Authorized [id number] Authorized Specialty Services Required 10/31/2024 10/31/2025 20 20 Reason for Visit * Auth/Cert (Routine) Specialty Diagnoses / Procedures Referred By Jackelyn tobin Referred To Contact Diagnoses stroke Procedures INPATIENT REHAB FACILITY PROSPECTIVE PAYMENT SYSTEM ([facility]) Juliann Man DO [address] [facility] [place] [address] [facility] Inpatient Rehab [address] [place] [address] Referral ID Status Reason Start Date Expiration Date Visits Re quested Visits Authorized [id number] 1 1 Encounter Details Date Type Department Care Team (Latest Contact Info) Description 10/25/2024 1:27 PM EST - 11/08/2024 11:35 AM EST Hospital Encounter [facility] Inpatient Rehab [address] [place] [phone] Juliann Man DO [address] [place] [address] Cerebrovascular accident (CVA), unspecified mechanism (CMS/HCC) (Primary [...] hypertension, hyperlipidemia, COPD, anxiety, who presented to [facility]'s emergency department with intermittent left-sided chest [...] DC here for debelity s/p CVA for PT/OT/VESSEL CAPTAIN and nursing care HOSPITAL COURSE: #Acute CVA [...] 83 11/03/2024 IMAGING: MR Brain wo Contrast [[id number]] Collected: 11/03/241929 Order Status: Completed Updated: 11/03/241929 [...] on 11/03/2024 19:30:07 XR Chest 1 View [[id number]] Collected: 11/03/241622 Order Status: Completed Updated: 11/03/241627 [...] Impression: No evidence of active pulmonary disease. [id number] -------- FINAL REPORT -------- Dictated By: Dell Abraham Dictated Date: 11/03/2024 16:23 ET Assigned Physician: Dell Abraham Reviewed and Electronically Signed By: Dell Abraham Signed Date: 11/03/2024 16:23 ET Workstation ID: [id number] Transcribed By: Self Edit Transcribed Date: 11/03/2024 16:[address] Angio Head/Neck Stroke wo and/or w Contrast [[id number]] Collected: 11/03/24 1402 Order Status: Completed Updated: [...] reconstructions performed on a computer workstation. Scanner: [employer] 64slice VCT Dose reduction technique: ASIR (Adaptive [...] Signed Date: 11/03/2024 14:14 ET Workstation ID: [id number] Transcribed By: Self Edit Transcribed Date: 11/03/2024 14:[address] Head Stroke wo Contrast [[id number]] Collected: 11/03/24 1335 Order Status: Completed Updated: 11/03/24 1343 Narrative: INDICATION: Left-sided weakness and facial numbness Technique: Axial images were obtained from the skull base to the vertex without contrast enhancement. Scanner: [email or web address] 64 slice VCT Dose reduction technique: ASIR [...] the office of DAFNE BECK in the [employer] system on 11/03/2024 1:38 PM, Message ID [id number]. -------- FINAL REPORT -------- Dictated By: Dell Abraham Dictated Date: 11/03/2024 13:35 ET Assigned Physician: Dell Abraham Reviewed and Electronically Signed By: Dell Abraham Signed Date: 11/03/2024 13:38 ET Workstation ID: [id number] Transcribed By: Self Edit Transcribed Date: 11/03/2024 13:35 ET XR Shoulder 2+ Views Right [[id number]] Collected: 10/26/24 1424 Order Status: Completed Updated: 10/26/24 1430 Narrative: INDICATION: Shoulder pain FINDINGS: Minimum of 2 views of the right shoulder were obtained. No prior studies available for comparison. No fracture or dislocation. No radiopaque foreign body or periosteal reaction is noted. No significant soft tissue abnormality. Mild degenerative changes. Impression: No shoulder fracture or dislocation. [id number] -------- FINAL REPORT -------- Dictated By: Dell Abraham Dictated Date: 10/26/2024 14:24 ET Assigned Physician: Dell Abraham Reviewed and Electronically Signed By: Dell Abraham Signed Date: 10/26/2024 14:25 ET Workstation ID: [id number] Transcribed By: Self Edit Transcribed Date: 10/26/2024 [...] Your Medications These medications were sent to [facility] [address] [facility] [address] [facility] [phone] aspirin 81 mg chewable tablet atorvastatin 40 [...] Thursday 2:30 PM (Arrive by 2:15 PM) [address] [phone] Go to Name MD Dante Oct 10:00am Hospital Follow Up Appointment [employer] transportation has been coordinated for you. group care worker: 9:30am Return Drop Off 11:45am Trip# [id number] Primary Care [address] [phone] NOV 23 PT TREATMENT with Lore Davis PT Thursday 2:30 PM Please bring any insurance information and a copayment if required by your insurance company. [address] [phone] NOV 28 PT TREATMENT with Deysi Gil PT Thursday 12:45 PM Please bring any insurance information and a copayment if required by your insurance company. [address] [phone] NOV 30 VESSEL CAPTAIN EVALUATION with Alea S Thursday 10:30 AM (Arrive by 10:15 AM) [facility] [address] [phone] DEC 07 VESSEL CAPTAIN TREATMENT with Alea S Thursday 10:45 AM Please bring any insurance information and a copayment if required by your insurance company. [facility] [address] [phone] DEC 14 VESSEL CAPTAIN TREATMENT with Alea S Thursday 10:45 AM Please bring any insurance information and a copayment if required by your insurance company. [facility] [address] [phone] Go to Berry Christiansen MD Thursday Specialty: Neurology 8:30am If you need transportation to appointment, please call [employer] to schedule at least 3-5 buisness days prior to appointment. * Jerry Cannon LCSW - 11/01/2024 9:30 AM EST [facility] Transportation You have been registered for [employer] transportation. To book a ride: Please call [...] sent through Care Everywhere. * Sennosides - Mcc Oral Tablet (SENNOSIDES - ORAL) (American) * Gabapentin Oral Capsule (GABAPENTIN - ORAL) (American) * Lidocaine Medicated Patch (LIDOCAINE PATCH - TOPICAL) (American) * Stroke: Know the Signs and BE FAST: Video (American) * Fall Prevention (American) * Oral Rehydration (American) * Antiplatelets After Ischemic Stroke: General Info (American) * Statins (American) documented in this encounter Medications at Time of Discharge Medication Sig Dispensed Refills Start Date End Date aspirin 81 mg chewable tabletIndications:prevent ion of cerebrovascular accident Chew 1 tablet (81 mg total) 1 (one) time each day. 30 each 11/08/2024 12/08/2024 atorvastatin (LIPITOR) 40 mg tablet Take 1 tablet (40 mg total) by mouth at bedtime. 30 each 11/08/2024 12/08/2024 clopidogreL (PLAVIX) 75 mg [...] and incidence of candidiasis. Do not swallow. documented as of this encounter Ordered Prescriptions [...] to pt to bring Discharge handout with [facility] pharmacy and physicians office visit. Patient in [...] a 63 y.o. female : 1960 MR#: [id number] SUBJECTIVE Subjective Improved left hemiparesis back to [...] without edema, erythema or calf tenderness neuro: Fiab-zlcy-oecypfs at recent baseline no facial droop no [...] residual left-sided hemiparesis, PAD/PVD who presented to [facility] with chest pain radiating down left [...] Entresto follow-up stroke clinic after discharge at [facility] Treatment Per rehab team Acute on Chronic [...] transportation home. Pt will follow up with [facility] rehab for PT and VESSEL CAPTAIN only. Pt is aware she has been registered for [employer] transportation and will need to call to book a ride to each appointment. Pt is familiar with [employer]. Pt will also need to update [facility], pt provided contact information. Pt had no questions or concerns at this time. Pt looking forward to discharge. * Lore Cortes, PT - 11/07/2024 3:00 PM EST [facility] Physical Therapy Discharge Evaluation Note 11/07/24 Patient: Estephania Bill : 1960 Age: 63 y.o. Gender: female Primary Language: American Diagnosis: CVA HPI: Defer to EMR No [...] CARE Score - Sit to Stand: 6 Chair/Clb-na-Lbisu Transfer Assistance Needed: Independent Physical Assistance Level: No physical assistance CARE Score - Chair/Zpj-mz-Lhkpa Transfer: 6 Toilet Transfer Assistance Needed: Independent [...] assistance CARE Score - 12 Steps: 6 Stores Laborer Object Picking Up Object Assistance Needed: Independent [...] Thom. Sit to stand Thom and ambulation [id number] with no AD Thom. Completion assessment of [...] Problems (Resolved) Template: Physical Therapy Problem: PT Retirement Goals Dates: Start: 10/26/24 Resolved: 11/07/24 Goal: [...] Therapy PT Individual: 60 * Lyudmila Younger, VESSEL CAPTAIN - 11/07/2024 2:15 PM EST Speech Language [...] cues. Speech Therapy Discharge Activity: With this music writer, Pt generated two skills learned in [...] Encounter Problems (Active) Template: Speech Therapy Problem: VESSEL CAPTAIN Supervisor Underwriting Clerks Goals Dates: Start: 10/26/24 Goal: Pt will improve cognitive linguistic skills for d/c setting. Dates: Start: 10/26/24 Expected End: 11/08/24 Outcomes Date/Time User Outcome 11/07/24 1642 BENEDICT Hines Adequate for Discharge Problem: VESSEL CAPTAIN Short Term Goals Dates: Start: 10/26/24 Goal: [...] (Resolved) There are no resolved problems. Plan: VESSEL CAPTAIN Discharge Recommendations: Outpatient VESSEL CAPTAIN Discharge Assessment/Impressions: On discharge, Pt presents with [...] EST I attest that I, Tameka Nassar M.S.,[facility]-VESSEL CAPTAIN, was physically involved in the ongoing assessment, [...] from the original note were not included. [facility] Daily Progress Note Patient name: [...] Nightly, Almita Magallanes NP, 17.2 mg at 11/05/242054 traZODone (DESYREL) [...] -Secondary to acute CVA -Continue PT, OT, VESSEL CAPTAIN, and nursing care #Acute CVA #Left Hemiparesis [...] Carmen OT - 11/07/2024 11:20 AM EST [facility] Occupational Therapy Discharge Note 11/07/24 Patient: [...] 4/5 STANDARDIZED TESTS Right Hand Strength - Electrical Test Engineer (lbs) Handle Setting 1: 39 lbs Handle Setting 2: 37 lbs Right Hand Strength - Pinch (lbs) Lateral: 13 lbs Tip (2 point): 7 lbs Three Jaw Endy: 9 lbs Left Hand Strength - Electrical Test Engineer (lbs) Handle Setting 1: 14 lbs Handle [...] Problems (Active) Template: Occupational Therapy Problem: OT Supervisor Underwriting Clerks Goals Dates: Start: 10/26/24 Goal: Mod I [...] 8:45 AM EST Social Work Note Integrated Risk Assessment Consultant Dx: Hx of depression and anxiety: Met with patient at bedside his morning, to see how things went last week for her. Patient reports that things went well and she is excited to going home tomorrow. She feels ready about the transition and she has no concerns. She is all set on my end. Lia Hastings, MS Nachocian * Charlene Bull, VESSEL CAPTAIN - 11/05/2024 3:25 PM EST Speech Language Pathology Speech Language Pathology Treatment Subjective VESSEL CAPTAIN Start Time: 1230 VESSEL CAPTAIN Stop Time: 1300 VESSEL CAPTAIN Time Calculation (min): 30 min Subjective: Pt [...] to call the transporation for HW. Assessment/Plan VESSEL CAPTAIN Assessment VESSEL CAPTAIN Assessment Results: Cognitive impairments Evaluation/Treatment Tolerance: Patient tolerated treatment well Plan Treatment/Interventions: Cognitive linguistic functioning VESSEL CAPTAIN Plan: Skilled VESSEL CAPTAIN VESSEL CAPTAIN Frequency: 5-7 days per week VESSEL CAPTAIN Duration of Sessions: 30-60 min per session VESSEL CAPTAIN Treatments per day: 1 time per day Goals Encounter Problems Encounter Problems (Active) Template: Speech Therapy Problem: VESSEL CAPTAIN Retirement Goals Dates: Start: 10/26/24 Goal: Pt will improve cognitive linguistic skills for d/c setting. Dates: Start: 10/26/24 Expected End: 11/08/24 Outcomes Date/Time User Outcome 11/05/24 BENEDICT Moreno Progressing Problem: VESSEL CAPTAIN Short Term Goals Dates: Start: 10/26/24 Goal: [...] EST I attest that I, Tameka Nassar M.S.,[facility]-VESSEL CAPTAIN, was physically involved in the ongoing assessment, decision making, and interventions provided during today's patient care session. I have reviewed all documentation for today's 11/05/24, entered by Speech Therapy Fellow, Charlene Gottlieb, and further attest that it is an accurate clinical record of today's encounter, including accurate and appropriate charges. * LALA Urena - 11/05/2024 2:56 PM EST [facility] Occupational Therapy Treatment Note 11/05/24 Patient: [...] Problems (Active) Template: Occupational Therapy Problem: OT Supervisor Underwriting Clerks Goals Dates: Start: 10/26/24 Goal: Mod I [...] Pool, PT - 11/05/2024 11:52 AM EST [facility] Physical Therapy Treatment Note 11/05/2024 Patient: Estephania Bill : 1960 Age: 63 y.o. Gender: female Primary Language: American Diagnosis: No Principal Problem: There is no [...] and RN notified. Education: Patient educated re [facility], home safety, and safety on unit [...] Problems (Active) Template: Physical Therapy Problem: PT Supervisor Underwriting Clerks Goals Dates: Start: 10/26/24 Goal: Thom bed [...] from the original note were not included. [facility] Daily Progress Note Patient name: Estephania Bill : 1960 SUBJECTIVE: Patient had an episode [...] -Secondary to acute CVA -Continue PT, OT, VESSEL CAPTAIN, and nursing care #Acute CVA #Left Hemiparesis [...] Language Pathology Speech Language Pathology Treatment Subjective VESSEL CAPTAIN Start Time: 1300 VESSEL CAPTAIN Stop Time: 1400 VESSEL CAPTAIN Time Calculation (min): 60 min Subjective: Pt [...] did not notice any significant changes. Assessment/Plan VESSEL CAPTAIN Assessment VESSEL CAPTAIN Assessment Results: Cognitive impairments Evaluation/Treatment Tolerance: Patient tolerated treatment well Plan Treatment/Interventions: Cognitive linguistic functioning VESSEL CAPTAIN Plan: Skilled VESSEL CAPTAIN VESSEL CAPTAIN Frequency: 5-7 days per week VESSEL CAPTAIN Duration of Sessions: 30-60 min per session VESSEL CAPTAIN Treatments per day: 1 time per day Goals Encounter Problems Encounter Problems (Active) Template: Speech Therapy Problem: VESSEL CAPTAIN Retirement Goals Dates: Start: 10/26/24 Goal: Pt will improve cognitive linguistic skills for d/c setting. Dates: Start: 10/26/24 Expected End: 11/05/24 Problem: VESSEL CAPTAIN Short Term Goals Dates: Start: 10/26/24 Goal: [...] EST I attest that I, Tameka Nassar M.S.,[facility]-VESSEL CAPTAIN, was physically involved in the ongoing assessment, decision making, and interventions provided during today's patient care session. I have reviewed all documentation for today's 11/04/24, entered by Speech Therapy Fellow, Charlene Gottlieb, and further attest that it is an accurate clinical record of today's encounter, including accurate and appropriate charges. * Desirae Garza, ASSIGNMENT AGENT - 11/04/2024 3:48 PM EST [facility] Physical Therapy Treatment Note 11/04/2024 Patient: Estephania Bill : 1960 Age: 63 y.o. Gender: female Primary Language: American Diagnosis: No Principal Problem: There is no [...] Problems (Active) Template: Physical Therapy Problem: PT Supervisor Underwriting Clerks Goals Dates: Start: 10/26/24 Goal: Thom bed [...] Cortes, PT - 11/04/2024 11:00 AM EST [facility] Physical Therapy Treatment Note 11/04/2024 Patient: Estephania Bill : 1960 Age: 63 y.o. Gender: female Primary Language: American Diagnosis: CVA No past medical history on [...] Re-Education Neuromuscular Re-Education Time Entry: 15 Completion [id number] ambulation with seated rest break in middle, [...] Problems (Active) Template: Physical Therapy Problem: PT Supervisor Underwriting Clerks Goals Dates: Start: 10/26/24 Goal: Thom bed [...] Bullock, OT - 11/04/2024 8:30 AM EST [facility] Occupational Therapy Treatment Note 11/04/24 Patient: [...] as session progressesd. DME order sent to [facility] to obtain shower chair at [...] Problems (Active) Template: Occupational Therapy Problem: OT Retirement Goals Dates: Start: 10/26/24 Goal: Mod I [...] at this time. Patient arrived on unit [id number]. Vitals and POC were obtained. Patient was [...] to the CAT scan and then to [facility] emergency room. Case and plan discussed with [...] Apical pulse regular with occasion irregular beats. laboratory monitor applied: NSR with frequent PVCs. nurse [...] Pt assessment by rapid response team, Tomeka Ross,TRANSVERSE ABDOMINAL MUSCLE SURGEON,JUAN CARLOS pt sent to ER. * Jarret [...] Cortes, PT - 11/03/2024 8:30 AM EST [facility] Physical Therapy Treatment Note 11/03/2024 Patient: Estephania Bill : 1960 Age: 63 y.o. Gender: female Primary Language: American Diagnosis: CVA No past medical history on [...] Problems (Active) Template: Physical Therapy Problem: PT Retirement Goals Dates: Start: 10/26/24 Goal: Thom bed [...] from the original note were not included. [facility] Daily Progress Note Patient name: [...] -Secondary to acute CVA -Continue PT, OT, VESSEL CAPTAIN, and nursing care #Acute CVA #Left Hemiparesis [...] SEVERAL TIMES HOWEVER WHEN SHE W[facility] TO [facility] VERY LITTLE URINE CAME OUT. BLADDER SCAN PERFORMED WITH PT RECLINING IN BED SUPINE, ZERO URINE ON SCAN. REPORTED TO MEDICAL PROVIDER UMA FERRO,[place] , NURSE INSTRUCTED TO PUSH ORAL HYDRATION, INSTRUCTED PT ON NEED TO ORALLY HYDRATE, PT PROVIDED WITH JANAE AMADO AND 2 POPSICLES. * UMA Saez - 11/02/2024 2:11 PM EST Images from the original note were not included. JUAN CARLOS PROGRESS NOTE Date: 11/02/2024 Author: UMA Saez Patient ID: Estephania Bill is a 63 y.o. female : 1960 MR#: [id number] SUBJECTIVE Subjective She reports her strength is [...] changes. Impression: No shoulder fracture or dislocation. [id number] -------- FINAL REPORT -------- Dictated By: Dell Abraham Dictated Date: 10/26/2024 14:24 ET Assigned Physician: Dell Abraahm Reviewed and Electronically Signed By: Dell Abraham Signed Date: 10/26/2024 14:25 ET Workstation ID: [id number] Transcribed By: Self Edit Transcribed Date: 10/26/2024 14:24 ET ASSESSMENT & PLAN This is a 63-year-old female with a history of coronary artery disease status post CABG, CVA with residual left-sided hemiparesis, PAD/PVD who presented to [facility] with chest pain radiating down left [...] with her stroke clinic after discharge at [facility] Per rehab team Chronic residual left-sided [...] Cortes, PT - 11/02/2024 2:00 PM EST [facility] Physical Therapy Treatment Note 11/02/2024 Patient: Estephania Bill : 1960 Age: 63 y.o. Gender: female Primary Language: American Diagnosis: CVA No past medical history on [...] UE support to achieve tandem stance. Completion [id number] ambulation with supervision naming objects that begin with specific letters. Slow speed, intermittent pausing, difficult for patient to dual task. Pt requesting to use bathroom again. Ambulation [id number] from therapy gym back to room with [...] Problems (Active) Template: Physical Therapy Problem: PT Retirement Goals Dates: Start: 10/26/24 Goal: Thom bed [...] from the original note were not included. [facility] Daily Progress Note Patient name: Estephania Bill : 1960 SUBJECTIVE: Patient seen and examined at bedside today. No acute events overnight. Denies headaches, dizziness,shortness of breath, chest pain, nausea, constipation. Reports that right shoulder pain continues to improve. Participating in therapies: Completion [id number] ambulation with supervision. OBJECTIVE: Vitals: 11/01/24 2231 [...] 1 mg, 1 mg, intramuscular, Once PRN, [facility] [place] insulin lispro injection 2-12 Units, 2-12 [...] -Secondary to acute CVA -Continue PT, OT, VESSEL CAPTAIN, and nursing care #Acute CVA #Left Hemiparesis [...] onward) Start Ordered 10/25/[address] [facility]; Diabetic; 75 gm carb/Meal Diet effective now Question Answer Comment Location [facility] Diet Type (req) Diabetic Diabetic 75 gm [...] noted foodallergies or issues with chewing/swallowing. Appetite ASSIGNMENT AGENT: Fair Intake ASSIGNMENT AGENT: Decreased Weight History: Wt Readings from Last [...] intake since admission has been variable per technical documentation specialist, however pt reports appetite is improving. Consuming average of 65% of meals in past week per technical documentation specialist. She states she has been selecting meals with nutrition internship. Agreeable to trial glucerna supplement while appetite [...] Bullock OT - 11/02/2024 9:45 AM EST [facility] Occupational Therapy Treatment Note 11/02/24 Patient: [...] Problems (Active) Template: Occupational Therapy Problem: OT Supervisor Underwriting Clerks Goals Dates: Start: 10/26/24 Goal: Mod I [...] Language Pathology Speech Language Pathology Treatment Subjective VESSEL CAPTAIN Start Time: 0900 VESSEL CAPTAIN Stop Time: 45 VESSEL CAPTAIN Time Calculation (min): 45 min Subjective: Cooperative [...] difficulty with time related word problems. Assessment/Plan VESSEL CAPTAIN Assessment Evaluation/Treatment Tolerance: Patient tolerated treatment well Plan Treatment/Interventions: Cognitive linguistic functioning VESSEL CAPTAIN Plan: Skilled VESSEL CAPTAIN VESSEL CAPTAIN Frequency: 5-7 days per week VESSEL CAPTAIN Duration of Sessions: 30-60 min per session VESSEL CAPTAIN Treatments per day: 1 time per day VESSEL CAPTAIN Discharge Recommendations: Outpatient VESSEL CAPTAIN VESSEL CAPTAIN - Next Appointment: 11/02/24 Goals Encounter Problems Encounter Problems (Active) Template: Speech Therapy Problem: VESSEL CAPTAIN Supervisor Underwriting Clerks Goals Dates: Start: 10/26/24 Goal: Pt will improve cognitive linguistic skills for d/c setting. Dates: Start: 10/26/24 Expected End: 11/05/24 Problem: VESSEL CAPTAIN Short Term Goals Dates: Start: 10/26/24 Goal: [...] EST I attest that I, Tameka Nassar M.S.,[facility]-VESSEL CAPTAIN, was physically involved in the ongoing assessment, [...] from the original note were not included. [facility] [address] [place] [phone] Dept: [phone] Patient: Estephania Bill : 1960 Age: 63 [...] Bullock OT - 11/01/2024 12:30 PM EST [facility] Occupational Therapy Treatment Note 11/01/24 Patient: [...] Pt seated on toilet seat to don tennis director socks with ROSEN. Pt picked up underwear [...] Problems (Active) Template: Occupational Therapy Problem: OT Retirement Goals Dates: Start: 10/26/24 Goal: Mod I [...] from the original note were not included. [facility] Daily Progress Note Patient name: [...] capsule 400 mg, 400 mg, oral, q8h [facility], Juliann Man DO, 400 mg at 11/01/24 [...] flush 3 mL, 3 mL, intravenous, q8h [facility], Juliann Man DO, 3 mL at 11/01/24 [...] -Secondary to acute CVA -Continue PT, OT, VESSEL CAPTAIN, and nursing care #Acute CVA #Left Hemiparesis [...] Cortes, PT - 11/01/2024 10:00 AM EST [facility] Physical Therapy Treatment Note 11/01/2024 Patient: Estephania Bill : 1960 Age: 63 y.o. Gender: female Primary Language: American Diagnosis: CVA No past medical history on [...] of bed with SBQC with supervision. Completion [id number] ambulation with supervision. First trial with SBQC, [...] Problems (Active) Template: Physical Therapy Problem: PT Supervisor Underwriting Clerks Goals Dates: Start: 10/26/24 Goal: Thom bed [...] Language Pathology Speech Language Pathology Treatment Subjective VESSEL CAPTAIN Start Time: 829 VESSEL CAPTAIN Stop Time: 914 VESSEL CAPTAIN Time Calculation (min): 45 min Subjective: Cooperative [...] 100% given mod to max A. Assessment/Plan VESSEL CAPTAIN Assessment Evaluation/Treatment Tolerance: Patient tolerated treatment well Plan Treatment/Interventions: Cognitive linguistic functioning VESSEL CAPTAIN Plan: Skilled VESSEL CAPTAIN VESSEL CAPTAIN Frequency: 5-7 days per week VESSEL CAPTAIN Duration of Sessions: 30-60 min per session VESSEL CAPTAIN Treatments per day: 1 time per day VESSEL CAPTAIN - Next Appointment: 11/02/24 Goals Encounter Problems Encounter Problems (Active) Template: Speech Therapy Problem: VESSEL CAPTAIN Retirement Goals Dates: Start: 10/26/24 Goal: Pt will improve cognitive linguistic skills for d/c setting. Dates: Start: 10/26/24 Expected End: 11/05/24 Problem: VESSEL CAPTAIN Short Term Goals Dates: Start: 10/26/24 Goal: [...] as word finding strategy Cognition, taught by BEENDICT Hines at 11/01/2024 8:30 AM. Learner: Patient Readiness: Acceptance Method: Explanation, Demonstration, Handout Response: Verbalizes Understanding, Needs Reinforcement Comment: Use of phone calendar as external memory strategy, repetition/rehearsal strategy, problem solving strategies, use of synonyms as word finding strategy Education Comments No comments found. Associated attestation - Edwina Nassar, BENEDICT - 11/01/2024 12:05 PM EST I attest that I, Tameka Nassar M.S.,[facility]-VESSEL CAPTAIN, was physically involved in the ongoing assessment, [...] up with OP rehab for PT and VESSEL CAPTAIN at [facility] OP rehab. Pt in agreement with plan. Pt is supv-steadying assist with ADLS with poor endurance and impaired balance. Insurance update 11/04. Pt had no questions or concerns at this time. Pt will update family. Will register pt for [employer]ART transportation. * Juliann Man DO - 10/31/2024 10:14 AM EST Images from the original note were not included. [facility] Daily Progress Note Patient name: [...] -Secondary to acute CVA -Continue PT, OT, VESSEL CAPTAIN, and nursing care #Acute CVA #Left Hemiparesis [...] Bullock OT - 10/31/2024 10:00 AM EST [facility] Occupational Therapy Treatment Note 10/31/24 Patient: [...] with written med lit made in previous VESSEL CAPTAIN session. Pt educated on recommended use of pill box, due to increased number of medications. Pt able to recall purpose of allmedications except 2, education provided on remaining 2. Pt utilized AM/PM pill box during task. Initial cues for use of written table and filling pill box, pt able to carryout remainder of task [id number]% accuracy of pill box filling. Pt able [...] room>ADL bathroom with S. Functional amb with [facility] into bathroom steadying A. Pt performed tub [...] pt made cup of instant coffee, At [facility] with steadying A. pt retrieved necessary items [...] Problems (Active) Template: Occupational Therapy Problem: OT Supervisor Underwriting Clerks Goals Dates: Start: 10/26/24 Goal: Mod I [...] Language Pathology Speech Language Pathology Treatment Subjective VESSEL CAPTAIN Start Time: 924 VESSEL CAPTAIN Stop Time: 1000 VESSEL CAPTAIN Time Calculation (min): 35 min Subjective: Cooperative [...] verbal cues. Completed medication log with this music writer. Explained rationale for use as external memory strategy. Discussed various external memory strategies. Pt receptive to use of phone calendar, as she reports often forgetting doctor appointments. Plan to target in future sessions. Problem Solving: Informal problem solving probing task: Pt presented with word problems related to money, time, med management auditorily: 20% accuracy indp. Goals updated. Assessment/Plan VESSEL CAPTAIN Assessment Evaluation/Treatment Tolerance: Patient tolerated treatment well Plan Treatment/Interventions: Cognitive linguistic functioning VESSEL CAPTAIN Plan: Skilled VESSEL CAPTAIN VESSEL CAPTAIN Frequency: 5-7 days per week VESSEL CAPTAIN Duration of Sessions: 30-60 min per session VESSEL CAPTAIN Treatments per day: 1 time per day VESSEL CAPTAIN - Next Appointment: 11/01/24 Goals Encounter Problems Encounter Problems (Active) Template: Speech Therapy Problem: VESSEL CAPTAIN Supervisor Underwriting Clerks Goals Dates: Start: 10/26/24 Goal: Pt will improve cognitive linguistic skills for d/c setting. Dates: Start: 10/26/24 Expected End: 11/05/24 Problem: VESSEL CAPTAIN Short Term Goals Dates: Start: 10/26/24 Goal: [...] EST I attest that I, Tameka Nassar M.S.,[facility]-VESSEL CAPTAIN, was physically involved in the ongoing assessment, decision making, and interventions provided during today's patient care session. I have reviewed all documentation for today's 10/31/24, entered by Speech Therapy Fellow, Lyudmila Landa, and further attest that it is an accurate clinical record of today's encounter, including accurate and appropriatecharges. * Lore Cortes, PT - 10/31/2024 8:00 AM EST [facility] Physical Therapy Treatment Note 10/31/2024 Patient: Estephania Bill : 1960 Age: 63 y.o. Gender: female Primary Language: American Diagnosis: CVA No past medical history on [...] Neuromuscular Re-Education Time Entry: 75 Completion ambulation [id number] from room down to therapy gym with RW, steadying assist. In therapy gym completion [id number] ambulation with SBQC with steadying assist. Ambulating with narrow base of support, cues to increase base of support. Cues for sequencing with cane. Completion [id number] ambulationwith no AD, steadying assist, increased medial [...] Problems (Active) Template: Physical Therapy Problem: PT Supervisor Underwriting Clerks Goals Dates: Start: 10/26/24 Goal: Thom bed [...] Chambers PTA - 10/30/2024 2:48 PM EST [facility] Physical Therapy Treatment Note 10/30/2024 Patient: [...] Problems (Active) Template: Physical Therapy Problem: PT Supervisor Underwriting Clerks Goals Dates: Start: 10/26/24 Goal: Thom bed [...] Therapy PT Individual: 60 * Lyudmila Younger, VESSEL CAPTAIN - 10/30/2024 12:30 PM EST Speech Language Pathology Speech Language Pathology Treatment Subjective VESSEL CAPTAIN Start Time: 1230 VESSEL CAPTAIN Stop Time: 1315 VESSEL CAPTAIN Time Calculation (min): 45 min Subjective: Cooperative [...] 56% accuracy given multiple choice cues. Assessment/Plan VESSEL CAPTAIN Assessment Evaluation/Treatment Tolerance: Patient tolerated treatment well Plan Treatment/Interventions: Cognitive linguistic functioning VESSEL CAPTAIN Plan: Skilled VESSEL CAPTAIN VESSEL CAPTAIN Frequency: 5-7 days per week VESSEL CAPTAIN Duration of Sessions: 30-60 min per session VESSEL CAPTAIN Treatments per day: 1 time per day VESSEL CAPTAIN - Next Appointment: 10/31/24 Goals Encounter Problems Encounter Problems (Active) Template: Speech Therapy Problem: VESSEL CAPTAIN Supervisor Underwriting Clerks Goals Dates: Start: 10/26/24 Goal: Pt will improve cognitive linguistic skills for d/c setting. Dates: Start: 10/26/24 Expected End: 11/05/24 Problem: VESSEL CAPTAIN Short Term Goals Dates: Start: 10/26/24 Goal: [...] EST I attest that I, Tameka Nassar M.S.,[facility]-VESSEL CAPTAIN, was physically involved in the ongoing assessment, decision making, and interventions provided during today's patient care session. I have reviewed all documentation for today's 10/30/24, entered by Speech Therapy Fellow, Lyudmila Landa, and further attest that it is an accurate clinical record of today's encounter, including accurate and appropriatecharges. * LALA Van - 10/30/2024 9:08 AM EST [facility] Occupational Therapy Treatment Note 10/30/24 Patient: [...] Problems (Active) Template: Occupational Therapy Problem: OT Retirement Goals Dates: Start: 10/26/24 Goal: Mod I [...] Language Pathology Speech Language Pathology Treatment Subjective VESSEL CAPTAIN Start Time: 1515 VESSEL CAPTAIN Stop Time: 5 VESSEL CAPTAIN Time Calculation (min): 40 min Subjective: Pt [...] min A for identifying the errors Assessment/Plan VESSEL CAPTAIN Assessment VESSEL CAPTAIN Assessment Results: Cognitive impairments Evaluation/Treatment Tolerance: Patient tolerated treatment well Plan Treatment/Interventions: Cognitive linguistic functioning VESSEL CAPTAIN Plan: Skilled VESSEL CAPTAIN VESSEL CAPTAIN Frequency: 5-7 days per week VESSEL CAPTAIN Duration of Sessions: 30-60 min per session VESSEL CAPTAIN Treatments per day: 1 time per day Goals Encounter Problems Encounter Problems (Active) Template: Speech Therapy Problem: VESSEL CAPTAIN Supervisor Underwriting Clerks Goals Dates: Start: 10/26/24 Goal: Pt will improve cognitive linguistic skills for d/c setting. Dates: Start: 10/26/24 Expected End: 11/05/24 Problem: VESSEL CAPTAIN Short Term Goals Dates: Start: 10/26/24 Goal: [...] EST I attest that I, Tameka Nassar M.S.,[facility]-VESSEL CAPTAIN, was physically involved in the ongoing assessment, decision making, and interventions provided during today's patient care session. I have reviewed all documentation for today's 10/29/24, entered by Speech Therapy Fellow, Charlene Gottlieb, and further attest that it is an accurate clinical record of today's encounter, including accurate and appropriate charges. * Jon Chambers, ASSIGNMENT AGENT - 10/29/2024 3:41 PM EST [facility] Physical Therapy Treatment Note 10/29/2024 Patient: [...] Problems (Active) Template: Physical Therapy Problem: PT Supervisor Underwriting Clerks Goals Dates: Start: 10/26/24 Goal: Thom bed [...] LALA Van - 10/29/2024 8:39 AM EST [facility] Occupational Therapy Treatment Note 10/29/24 Patient: Estephania Bill : 1960 Age: 63 y.o. Gender: female Diagnosis: No Principal Problem: There is no principal problem currently on the Problem List. Please update the Problem List and refresh. Primary Rehab (Etiologic) Diagnosis: Patient Active Problem List Diagnosis Stroke (CMS/HCC) Diabetes (CMS/HCC) CVA (cerebral vascular accident) ([facility]) PMH: No past [...] Problems (Active) Template: Occupational Therapy Problem: OT Supervisor Underwriting Clerks Goals Dates: Start: 10/26/24 Goal: Mod I [...] Language Pathology Speech Language Pathology Treatment Subjective VESSEL CAPTAIN Start Time: 1000 VESSEL CAPTAIN Stop Time: 1100 VESSEL CAPTAIN Time Calculation (min): 60 min Subjective: Pt [...] choice cue, 90% given yes/no questions. Assessment/Plan VESSEL CAPTAIN Assessment VESSEL CAPTAIN Assessment Results: Cognitive impairments Evaluation/Treatment Tolerance: Patient limited by pain Medical Staff Made Aware: Yes Comments: RN informed of IV leaking Plan Treatment/Interventions: Cognitive linguistic functioning VESSEL CAPTAIN Plan: Skilled VESSEL CAPTAIN VESSEL CAPTAIN Frequency: 5-7 days per week VESSEL CAPTAIN Duration of Sessions: 30-60 min per session Goals Encounter Problems Encounter Problems (Active) Template: Speech Therapy Problem: VESSEL CAPTAIN Supervisor Underwriting Clerks Goals Dates: Start: 10/26/24 Goal: Pt will improve cognitive linguistic skills for d/c setting. Dates: Start: 10/26/24 Expected End: 11/05/24 Problem: VESSEL CAPTAIN Short Term Goals Dates: Start: 10/26/24 Goal: [...] Outcomes Date/Time User Outcome 10/28/24 Katelynn Gottlieb VESSEL CAPTAIN Not Progressing Goal: Pt will use fluency [...] EST I attest that I, Tameka Nassar M.S.,[facility]-VESSEL CAPTAIN, was physically involved in the ongoing assessment, [...] Cortes, PT - 10/28/2024 2:00 PM EST [facility] Physical Therapy Treatment Note 10/28/2024 Patient: Estephania Bill : 1960 Age: 63 y.o. Gender: female Primary Language: American Diagnosis: CVA No past medical history on [...] Problems (Active) Template: Physical Therapy Problem: PT Retirement Goals Dates: Start: 10/26/24 Goal: Thom bed [...] from the original note were not included. [facility] Daily Progress Note Patient name: Estephania Bill : 1960 SUBJECTIVE: Patient seen and examined at bedside today. No acute events overnight. Denies headaches, dizziness,shortness of breath, chest pain, nausea, constipation. Reports continued right shoulder pain with all AROM and PROM. Agreeable to steroid injection today. Participating in therapies: Completion [id number] ambulation with RW with steadying assist. OBJECTIVE: [...] flush 3 mL, 3 mL, intravenous, q8h [facility], Juliann Man DO traZODone (DESYREL) tablet 150 [...] -Secondary to acute CVA -Continue PT, OT, VESSEL CAPTAIN, and nursing care #Acute CVA #Left Hemiparesis [...] Bullock OT - 10/28/2024 8:30 AM EST Estephania Bill was unable to complete her planned Occupational Therapy session with Jarret Bullock OT on 10/28/2024 due to illness. RN reporting that pt's systolic BP in the 80s in supine, and pt reporting dizziness. Pt also declining to participate therapy this date due to pain and dizziness. Next treatment attempt will be Tomorrow. * Charlene Pricelivan, VESSEL CAPTAIN - 10/27/2024 3:58 PM EST Speech Language Pathology Speech Language Pathology Treatment Subjective VESSEL CAPTAIN Start Time: 929 VESSEL CAPTAIN Stop Time: 1029 VESSEL CAPTAIN Time Calculation (min): 60 min Subjective: Pt [...] impacts her daily communication. Pt read the [place] and 15% of her speech was [...] Clock Drawing Severity Rating 9 moderate Assessment/Plan VESSEL CAPTAIN Assessment VESSEL CAPTAIN Assessment Results: Cognitive impairments Evaluation/Treatment Tolerance: Patient tolerated treatment well Plan Treatment/Interventions: Cognitive linguistic functioning VESSEL CAPTAIN Plan: Skilled VESSEL CAPTAIN VESSEL CAPTAIN Frequency: 5-7 days per week VESSEL CAPTAIN Duration of Sessions: 30-60 min per session VESSEL CAPTAIN Treatments per day: 1 time per day VESSEL CAPTAIN - Next Appointment: 10/28/24 Goals Encounter Problems Encounter Problems (Active) Template: Speech Therapy Problem: VESSEL CAPTAIN Supervisor Underwriting Clerks Goals Dates: Start: 10/26/24 Goal: Pt will improve cognitive linguistic skills for d/c setting. Dates: Start: 10/26/24 Expected End: 11/05/24 Problem: VESSEL CAPTAIN Short Term Goals Dates: Start: 10/26/24 Goal: [...] problems. Education Documentation Speech/Language, taught by BENEDICT Quinetro at 10/27/2024 3:57 PM. Learner: Patient Readiness: Acceptance Method: Explanation Response: Verbalizes Understanding Cognition, taught by BENEDICT Quintero at 10/27/2024 3:57 PM. Learner: Patient Readiness: Acceptance Method: Explanation Response: Verbalizes Understanding Education Comments No comments found. Associated attestation - Edwina Nassar SLP - 10/27/2024 10:08 PM EST I attest that I, Tameka Nassar M.S.,[facility]-VESSEL CAPTAIN, was physically involved in the ongoing assessment, [...] -Secondary to acute CVA -Continue PT, OT, VESSEL CAPTAIN, and nursing care #Acute CVA #Left Hemiparesis [...] note, assessment, and plan as documented by UMA today. * UMA Saez - 10/27/2024 12:49 PM EST Images from the original note were not included. JUAN CARLOS PROGRESS NOTE Date: 10/27/2024 Author: UMA Saez Patient ID: Estephania Bill is a 63 y.o. female : 1960 MR#: [id number] SUBJECTIVE Subjective She reports that her left [...] changes. Impression: No shoulder fracture or dislocation. [id number] -------- FINAL REPORT -------- Dictated By: Dell Abraham Dictated Date: 10/26/2024 14:24 ET Assigned Physician: Dell Abraham Reviewed and Electronically Signed By: Jarad, Parshant Signed Date: 10/26/2024 14:25 ET Workstation ID: [id number] Transcribed By: Self Edit Transcribed Date: 10/26/2024 14:24 ET ASSESSMENT & PLAN This is a 63-year-old female with a history of coronary artery disease status post CABG, CVA with residual left-sided hemiparesis, PAD/PVD who presented to [facility] with chest pain radiating down left [...] with her stroke clinic after discharge at [facility] Per rehab team Chronic residual left-sided [...] Sophia, PT - 10/27/2024 12:30 PM EST [facility] Physical Therapy Treatment Note 10/27/2024 Patient: Estephania Bill : 1960 Age: 63 y.o. Gender: female Primary Language: American Diagnosis: CVA No past medical history on [...] from room down to therapy gym. Completion [id number] ambulation with RW with steadying assist. As [...] Problems (Active) Template: Physical Therapy Problem: PT Supervisor Underwriting Clerks Goals Dates: Start: 10/26/24 Goal: Thom bed [...] 8:45 AM EST Social Work Note Integrated Risk Assessment Consultant Dx: Hx of depression and anxiety: Met [...] is the prescriber. She recently moved to [place] from [place]. She does not live in the [facility] area andthat has her concerned about returning [...] Bullock, OT - 10/27/2024 7:00 AM EST [facility] Occupational Therapy Treatment Note 10/27/24 Patient: Estephania Bill : 1960 Age: 63 y.o. Gender: female Diagnosis: No Principal Problem: There is no principal problem currently on the Problem List. Please update the Problem List and refresh. Primary Rehab (Etiologic) Diagnosis: Patient Active Problem List Diagnosis Stroke (CMS/HCC) Diabetes ([facility]/H[facility]) CVA (cerebral vascular accident) ([facility]) PMH: No past [...] of UE theraputty HEP to target increasing tennis director and pinch strength,in down time from therapy, [...] Problems (Active) Template: Occupational Therapy Problem: OT Supervisor Underwriting Clerks Goals Dates: Start: 10/26/24 Goal: Mod I [...] daily for 5 days. 60 minutes of VESSEL CAPTAIN daily for 5 days. Anticipated Functional Outcomes/Rehab [...] from the original note were not included. [facility] Daily Progress Note Patient name: [...] 40 mg, 40 mg, oral, Nightly, UMA Ornoa, 40 mg at 10/25/242034 budesonide (PULMICORT) 1 mg/2 mL nebulizer solution 0.5 mg, 0.5 mg, nebulization, Daily, 0.5 mg at 10/26/24 0944 AND formoterol (PERFOROMIST) 20 mcg/2 mL nebulizer solution 20 mcg, 20 mcg, nebulization, BID, UMA Ornoa, 20 mcg at 10/26/24 0945 carvediloL (COREG) [...] -Secondary to acute CVA -Continue PT, OT, VESSEL CAPTAIN, and nursing care #Acute CVA #Left Hemiparesis [...] pain. Patient had received prn Oxycodone at [facility] for right shoulder discomfort pr pt reprot. [...] changes. IMPRESSION: No shoulder fracture or dislocation. [id number] -------- FINAL REPORT -------- Dictated By: Dell Abraham Dictated Date: 10/26/2024 14:24 ET Assigned Physician: Dell Abraham Reviewed and Electronically Signed By: Dell Abraham Signed Date: 10/26/2024 14:25 ET Workstation ID: [id number] Transcribed By: Self Edit Transcribed Date: 10/26/2024 14:24 ET Result Histo * Lyudmila Younger, VESSEL CAPTAIN - 10/26/2024 3:00 PM EST Speech Language Pathology Speech Language Pathology Evaluation Subjective VESSEL CAPTAIN Start Time: 1500 VESSEL CAPTAIN Stop Time: 1545 VESSEL CAPTAIN Time Calculation (min): 45 min Subjective: Pt reporting 9/10 pain in shoulder. RN aware. Requesting to complete initial evaluationtomorrow. Agreeable to limited/informal assessment tasks. PREMORBID STATUS: Pt lives alone. Reports sister assists with med and finance management. Does not drive. Did not work. Highest level of education is 10th grade. Wears reading glasses. Denies SUQUAMISH. Reports occasional disfluencies since first stroke, specifically [...] disfluencies. Patient Active Problem List Diagnosis Stroke ([facility]/HCC) Diabetes ([facility]) CVA (cerebral vascular accident) ([facility]) No past medical [...] Labial Symmetry: Within Functional Limits Lingual Appearance: [place] Lingual ROM: Within Functional Limits Lingual Symmetry: [...] Primary Mode of Expression: Verbal Primary Language: American Generative Naming: Impaired Generative Naming Comments: Pt able to name 7 boy names from BCAT in 1 minute. Eye Contact: Within Functional Limits Topic Maintenance: Within Functional Limits Turn Taking: Within Functional Limits Additional Assessments/Tests VESSEL CAPTAIN Additional Assessments/Tests Additional Assessment/Test #1: Informal assessment [...] 3/4 PROBLEM-SOLVING/REASONING: Impaired Hypothetical situations: 11/22 Assessment/Plan VESSEL CAPTAIN Assessment VESSEL CAPTAIN Assessment Results: Cognitive impairments, Expression deficits Dysphagia [...] of ST. Plan Treatment/Interventions: Cognitive linguistic functioning VESSEL CAPTAIN Plan: Skilled VESSEL CAPTAIN VESSEL CAPTAIN Frequency: 5-7 days per week VESSEL CAPTAIN Duration of Sessions: 30-60 min per session VESSEL CAPTAIN Treatments per day: 1 time per day VESSEL CAPTAIN - Evaluation Status: Complete VESSEL CAPTAIN Discharge Recommendations: (TBD) Diet Recommendations: Regular/thin VESSEL CAPTAIN - Next Appointment: 10/27/24 Goals Encounter Problems Encounter Problems (Active) Template: Speech Therapy Problem: VESSEL CAPTAIN Supervisor Underwriting Clerks Goals Dates: Start: 10/26/24 Goal: Pt will improve cognitive linguistic skills for d/c setting. Dates: Start: 10/26/24 Expected End: 11/05/24 Problem: VESSEL CAPTAIN Short Term Goals Dates: Start: 10/26/24 Goal: [...] Bullock OT - 10/26/2024 10:00 AM EST [facility] Occupational Therapy Evaluation Note 10/26/24 Patient: Estephania Bill : 1960 Age: 63 y.o. Gender: female Primary Language: American Diagnosis: No Principal Problem: There is no [...] back Prior Level of Function: Level of [place]: Independent with mobility and functional transfers Ambulation [...] would make list for sister, who would [employer] shop for her.) Meal Prep Responsibility: (occasional assist from sister dep on ftigue level.) Laundry Responsibility: No Laundry: (sister performs) Medication Management: Independent (pt reports that she had an appointment with [employer] cneter for implementing a pill box, however [...] 3+/5 STANDARDIZED TESTS Right Hand Strength - Electrical Test Engineer (lbs) Handle Setting 2: 37 lbs Right Hand Strength - Pinch (lbs) Lateral: 11.5 lbs Tip (2 point): 6.5 lbs Three Jaw Endy: 7 lbs Left Hand Strength - Electrical Test Engineer (lbs) Handle Setting 2: 10 lbs Left Hand Strength - Pinch (lbs) Lateral: 4 lbs Tip (2 point): 3 lbs Three Jaw Endy: 3.5 lbs 9 Hole Peg Test (seconds) [...] Problems (Active) Template: Occupational Therapy Problem: OT Supervisor Underwriting Clerks Goals Dates: Start: 10/26/24 Goal: Mod I [...] Cortes, PT - 10/26/2024 8:00 AM EST [facility] Physical Therapy Evaluation Note 10/26/24 Patient: Estephania Bill : 1960 Age: 63 y.o. Gender: female Primary Language: American Diagnosis: CVA HPI: defer to EMR No [...] SUBJECTIVE Prior Level of Function: Level of [place]: Independent with mobility and functional transfers Ambulation [...] CARE Score - Sit to Stand: 4 Chair/Iwi-rs-Hrcdj Transfer Assistance Needed: Incidental touching Physical Assistance Level: No physical assistance Comment: RW CARE Score - Chair/[id number]-Rzxuo Transfer: 4 Car Transfer Reason if not [...] concerns CARE Score - 12 Steps: 88 Stores Laborer Object Picking Up Object Assistance Needed: Physical [...] will benefit from skilled physical therapy at [facility] in order to decrerase limitations for increased [...] Problems (Active) Template: Physical Therapy Problem: PT Supervisor Underwriting Clerks Goals Dates: Start: 10/26/24 Goal: Thom bed [...] appointment. Pt states she applied for the PHYSIOGNOMIST program with Eddie, meeting was scheduled for tomorrow. Pt has three adult sons, 2 are local but work time study clerk. Pts sister is primary support but also works time study clerk. Pt statesher partner lives in [place] and will visit 1- 2x/week. HCP on [...] hypertension, hyperlipidemia, COPD, anxiety, who presented to [facility]'s emergency department with intermittent left-sided chest [...] DC here for debelity s/p CVA for PT/OT/VESSEL CAPTAIN and nursing care PAST MEDICAL HISTORY: No [...] self-care -Secondary to CVA -Continue PT, OT, VESSEL CAPTAIN, and nursing care #CVA - S/P TNK [...] Info) Description 11/16/2024 2:30 PM EST Evaluation [address] [phone] Lore Cortes, ROGER 11/23/2024 2:30 PM EST Treatment [address] [phone] Lore Cortes, PT 11/28/2024 12:45 PM EST Treatment [facility] [address] [place] [phone] GrijalvaDeysi, PT 11/30/2024 10:30 AM EST Evaluation [facility] Speech [facility] [address] [phone] Alea Trejo, VESSEL CAPTAIN 12/07/2024 10:45 AM EST Treatment [facility] [address] [phone] Alea Trejo, VESSEL CAPTAIN 12/14/2024 10:45 AM EST Treatment [facility] [address] [place] [phone] Alea Trejo, VESSEL CAPTAIN Scheduled Referrals Name Type Priority Associated Diagnoses [...] 4: 24 PM EST ECG OUTSIDE 10/25/2024 documented in this encounter Results * Routine [...] - 100 mg/dL 11/07/2024 7:[address] [facility] Blood Capillary blood specimen / Unknown 11/07/2024 7:18 AM EST 11/07/2024 7:21 AM EST Juliann Man DO LAB POINT OF CARE TEST DOCKED DEVICE UNSOLICITED RESULTS [facility] [address] [place] [address], * (ABNORMAL) POCT Glucose, blood (11/06/2024 7:52 PM EST) Glucose POCT 120(H) 70 - 100 mg/dL 11/06/2024 7:[address] [facility] Blood Capillary blood specimen / Unknown 11/06/2024 7:52 PM EST 11/06/2024 7:54 PM EST Juliann Man DO LAB POINT OF CARE TEST DOCKED DEVICE UNSOLICITED RESULTS Performing Organization Address [facility] Co de Phone Number [facility] [address] [place] [address], * POCT Glucose, blood (11/06/2024 3:48 PM EST) Glucose POCT 99 70 - 100 mg/dL 11/06/2024 3:[address] [facility] Blood Capillary blood specimen / Unknown 11/06/2024 3:48 PM EST 11/06/2024 3:53 PM EST Juliann ElizaldeDealo LAB POINT OF CARE TEST DOCKED DEVICE UNSOLICITED RESULTS Performing Organization Address [facility] [place]/[facility] de Phone Number [facility] [address] [place] [address], [place] [phone] * (ABNORMAL) POCT Glucose, blood (11/06/2024 11:17 AM EST) Glucose POCT 109(H) 70 - 100 mg/dL 11/06/2024 11:[address] [facility] Blood Capillary blood specimen / Unknown 11/06/2024 11:17 AM EST 11/06/2024 11:22 AM EST Juliann Elizaldeese LAB POINT OF CARE TEST DOCKED DEVICE UNSOLICITED RESULTS Performing Organization Address [facility] [place]/[facility]/ZIP Co de Phone Number [facility] [address] [place] [address], [place] [phone] * POCT Glucose, blood (11/06/2024 7:27 AM EST) Glucose POCT 95 70 - 100 mg/dL 11/06/2024 7:[address] [facility] Blood Capillary blood specimen / Unknown 11/06/2024 7:27 AM EST 11/06/2024 7:30 AM EST Juliann Man DO LAB POINT OF CARE TEST DOCKED DEVICE UNSOLICITED RESULTS Performing Organization Address City/[facility]/ZIP Co de Phone Number [facility] [address] [place] [address], [place] [phone] * POCT Glucose, blood (11/05/2024 8:16 PM EST) Glucose POCT 99 70 - 100 mg/dL 11/05/2024 8:[address] [facility] Blood Capillary blood specimen / Unknown 11/05/2024 8:16 PM EST 11/05/2024 8:18 PM EST Juliann Man [employer] LAB POINT OF CARE TEST DOCKED DEVICE UNSOLICITED RESULTS Performing Organization Address [facility] [place]/[facility] Co de Phone Number [facility] [address] [place] [address], [place] [phone] * (ABNORMAL) POCT Glucose, blood (11/05/2024 3:50 PM EST) Glucose POCT 105(H) 70 - 100 mg/dL 11/05/2024 3:[address] [facility] Blood Capillary blood specimen / Unknown 11/05/2024 3:50 PM EST 11/05/2024 3:53 PM EST Juliann ElizaldeDealo LAB POINT OF CARE TEST DOCKED DEVICE UNSOLICITED RESULTS Performing Organization Address [facility]/ZIP Co de Phone Number [facility] [address] [place] [address], [place] [phone] * POCT Glucose, blood (11/05/2024 11:20 AM EST) Glucose POCT 97 70 - 100 mg/dL 11/05/2024 11:[address] [facility] Blood Capillary blood specimen / Unknown 11/05/2024 11:20 AM EST 11/05/2024 11:23 AM EST Juliann Man DO LAB POINT OF CARE TEST DOCKED DEVICE UNSOLICITED RESULTS Performing Organization Address [facility] [place]/[facility]/ZIP Co de Phone Number [facility] [address] [place] [address], [place] [phone] * POCT Glucose, blood (11/05/2024 7:29 AM EST) Glucose POCT 94 70 - 100 mg/dL 11/05/2024 7:[address] [facility] Blood Capillary blood specimen / Unknown 11/05/2024 7:29 AM EST 11/05/2024 7:34 AM EST Ujliannmukund Carlosabrese LAB POINT OF CARE TEST DOCKED DEVICE UNSOLICITED RESULTS Performing Organization Address [facility] de Phone Number [facility] [address] [place] [address], [place] [phone] * (ABNORMAL) POCT Glucose, blood (11/04/2024 8:06 PM EST) Glucose POCT 130(H) 70 - 100 mg/dL 11/04/2024 8:[address] [facility] Blood Capillary blood specimen / Unknown 11/04/2024 8:06 PM EST 11/04/2024 8:08 PM EST Juliannmukund Man DO LAB POINT OF CARE TEST DOCKED DEVICE UNSOLICITED RESULTS Performing Organization Address [facility] [place]/[facility] Co de Phone Number [facility] [address] [place] [address], [place] [phone] * POCT Glucose, blood (11/04/2024 4:03 PM EST) Glucose POCT 84 70 - 100 mg/dL 11/04/2024 4:[address] [facility] Blood Capillary blood specimen / Unknown 11/04/2024 4:03 PM EST 11/04/2024 4:06 PM EST Juliann A Donovan DO LAB POINT OF CARE TEST DOCKED DEVICE UNSOLICITED RESULTS [facility] [address] [place] [address], [place] [phone] * POCT Glucose, blood (11/04/2024 11:06 AM EST) Glucose POCT 92 70 - 100 mg/dL 11/04/2024 11:[address] [facility] Blood Capillary blood specimen / Unknown 11/04/2024 11:06 AM EST 11/04/2024 11:08 AM EST Juliann A Donovan DO LAB POINT OF CARE TEST DOCKED DEVICE UNSOLICITED RESULTS Performing Organization Address City/[facility]/ZIP Co de Phone Number [facility] [address] [place] [address], [place] [phone] * POCT Glucose, blood (11/04/2024 7:32 AM EST) Glucose POCT 78 70 - 100 mg/dL 11/04/2024 7:[address] [facility] Blood Capillary blood specimen / Unknown 11/04/2024 7:32 AM EST 11/04/2024 7:35 AM EST Juliann A Donovan DO LAB POINT OF CARE TEST DOCKED DEVICE UNSOLICITED RESULTS Performing Organization Address [facility]/ZIP Co de Phone Number [facility] [address] [place] [address], [place] [phone] * Magnesium (11/03/2024 2:02 PM EST) Magnesium 1.9 1.9 - 2.6 mg/dL LAB CHEMISTRY METHOD 11/04/2024 12:[address] [facility] Blood Venous blood specimen / Unknown Venipuncture / Unknown 11/03/2024 2:02 PM EST 11/03/2024 2:10 PM EST Dafne EATON LAB BLOOD ORDERABLES Performing Organization Address City/[facility]/ZIP Co de Phone Number [facility] [address] [place] [address], * Prolactin (11/03/2024 2:02 PM EST) [facility] Prolactin 7.40 See Comment ng/mL LAB CHEMISTRY METHOD 11/04/2024 1:[address] [facility] Comment: Prolactin Reference Ranges (ng/mL) ??Non ?2.2 - ??30.3 ? 8.1 - 347.6 ??Postmenopausal 0.7 - ??31.5 Blood Venous blood specimen / Unknown Venipuncture / Unknown 11/03/2024 2:02 PM EST 11/03/2024 2:10 PM EST Dafne EATON LAB BLOOD ORDERABLES [facility] [address] [place] [address], * CT Head Stroke wo Contrast (11/03/2024 12:40 PM EST) Anatomical Region Laterality Modality Head and Neck Computed Tomogra phy 11/03/2024 1:35 PM EST Impressions 11/03/2024 1:38 PM EST No evidence of acute intracranial process on noncontrast head CT. A Critical Document Only message has been documented for the office of DAFNE BECK in the [employer] Actionable Findings ??system on 11/03/2024 1:38 PM, Message ID [id number]. -------- FINAL REPORT -------- Dictated By: Dell Abraham Dictated Date: 11/03/2024 13:35 ET Assigned Physician: Dell Abraham Reviewed and Electronically Signed By: Dell Abraham Signed Date: 11/03/2024 13:38 ET Workstation ID: [id number] Transcribed By: Self Edit Transcribed Date: 11/03/2024 13:35 ET Narrative 11/03/2024 1:38 PM EST INDICATION: Left-sided weakness and facial numbness Technique: Axial images were obtained from the skull base to the vertex without contrast enhancement. Scanner: [id number].compeed 64 slice VCT Dose reduction technique: ASIR [...] to the vertexwithout contrast enhancement. Scanner: GE Optiantpeed 64 slice VCT Dose reduction technique: ASIR [...] for the office ofDAFNE BECK in the [employer] system on11/03/2024 1:38 PM, Message ID [id number]. -------- FINAL REPORT -------- Dictated By: Dell Abraham Dictated Date: 11/03/2024 13:35 ET Assigned Physician: Dell Abraham Reviewed and Electronically Signed By: Dell Abraham Signed Date: 11/03/2024 13:38 ET Workstation ID: [id number] Transcribed By: Self Edit Transcribed Date: 11/03/2024 13:35 ET Dafne EATON IMG CT PROCEDURES * ECG 12 lead (11/03/2024 12:07 PM EST) Ventricular Rate ECG 89 BPM GEMUSE Atrial Rate 89 BPM GEMUSE P-R Interval 140 ms GEMUSE QRS Duration 90 ms GEMUSE Q-T Interval 374 ms GEMUSE QTc 455 ms GEMUSE P [place] 58 degrees GEMUSE R [place] -30 degrees GEMUSE T [place] 67 degrees GEMUSE ECG Interpretation Sinus rhythm [...] - 100 mg/dL 11/03/2024 12:[address] [facility] Blood Capillary blood specimen / Unknown 11/03/2024 12:01 PM EST 11/03/2024 12:03 PM EST Juliann Kimmie ElizaldeDonovan DO LAB POINT OF CARE TEST DOCKED DEVICE UNSOLICITED RESULTS [facility] [address] [place] [address], [place] [phone] * POCT Glucose, blood (11/03/2024 11:05 AM EST) Glucose POCT 98 70 - 100 mg/dL 11/03/2024 11:[address] [facility] Blood Capillary blood specimen / Unknown 11/03/2024 11:05 AM EST 11/03/2024 11:08 AM EST Juliann Elizaldeese DO LAB POINT OF CARE TEST DOCKED DEVICE UNSOLICITED RESULTS Performing Organization Address City/[facility]/ZIP Co de Phone Number [facility] [address] [place] [address], [place] [phone] * POCT Glucose, blood (11/03/2024 7:20 AM EST) Glucose POCT 82 70 - 100 mg/dL 11/03/2024 7:[address] [facility] Blood Capillary blood specimen / Unknown 11/03/2024 7:20 AM EST 11/03/2024 7:22 AM EST Juliann Elizaldeese DO LAB POINT OF CARE TEST DOCKED DEVICE UNSOLICITED RESULTS Performing Organization Address [facility]/ZIP Co de Phone Number [facility] [address] [place] [address], [place] [phone] * (ABNORMAL) POCT Glucose, blood (11/02/2024 8:02 PM EST) Glucose POCT 136(H) 70 - 100 mg/dL 11/02/2024 8:[address] [facility] Blood Capillary blood specimen / Unknown 11/02/2024 8:02 PM EST 11/02/2024 8:05 PM EST Juliann A [employer] LAB POINT OF CARE TEST DOCKED DEVICE UNSOLICITED RESULTS [facility] [address] [place] [address], * (ABNORMAL) POCT Glucose, blood (11/02/2024 4:03 PM EST) Glucose POCT 139(H) 70 - 100 mg/dL 11/02/2024 4:[address] [facility] Blood Capillary blood specimen / Unknown 11/02/2024 4:03 PM EST 11/02/2024 4:05 PM EST Juliann ElizaldeDealo LAB POINT OF CARE TEST DOCKED DEVICE UNSOLICITED RESULTS [facility] [address] [place] [address], * (ABNORMAL) POCT Glucose, blood (11/02/2024 11:23 AM EST) Glucose POCT 114(H) 70 - 100 mg/dL 11/02/2024 11:[address] [facility] Blood Capillary blood specimen / Unknown 11/02/2024 11:23 AM EST 11/02/2024 11:25 AM EST Juliann Man [employer] LAB POINT OF CARE TEST DOCKED DEVICE UNSOLICITED RESULTS Performing Organization Address [facility] [place]/[facility]/ZIP Co de Phone Number [facility] [address] [place] [address], [place] [phone] * (ABNORMAL) POCT Glucose, blood (11/02/2024 7:31 AM EST) Glucose POCT 102(H) 70 - 100 mg/dL 11/02/2024 11:[address] [facility] Blood Capillary blood specimen / Unknown 11/02/2024 7:31 AM EST 11/02/2024 11:23 AM EST Juliann Man LAB POINT OF CARE TEST DOCKED DEVICE UNSOLICITED RESULTS Performing Organization Address [facility] [place]/[facility] Co de Phone Number [facility] [address] [place] [address], * (ABNORMAL) POCT Glucose, blood (11/01/2024 4:26 PM EST) Glucose POCT 101(H) 70 - 100 mg/dL 11/01/2024 10:[address] [facility] Blood Capillary blood specimen / Unknown 11/01/2024 4:26 PM EST 11/01/2024 10:55 PM EST Juliann Man LAB POINT OF CARE TEST DOCKED DEVICE UNSOLICITED RESULTS Performing Organization Address [facility] [place]/[facility]/ZIP Co de Phone Number [facility] [address] [place] [address], [place] [phone] * (ABNORMAL) POCT Glucose, blood (11/01/2024 11:09 AM EST) Glucose POCT 114(H) 70 - 100 mg/dL 11/01/2024 11:[address] [facility] Blood Capillary blood specimen / Unknown 11/01/2024 11:09 AM EST 11/01/2024 11:12 AM EST Juliann Man DO LAB POINT OF CARE TEST DOCKED DEVICE UNSOLICITED RESULTS Performing Organization Address [facility] [place]/[facility] Co de Phone Number [facility] [address] [place] [address], [place] [phone] * POCT Glucose, blood (11/01/2024 7:17 AM EST) Glucose POCT 100 70 - 100 mg/dL 11/01/2024 7:[address] [facility] Blood Capillary blood specimen / Unknown 11/01/2024 7:17 AM EST 11/01/2024 7:22 AM EST Juliannmukund Carlosabrbrock HAILE LAB POINT OF CARE TEST DOCKED DEVICE UNSOLICITED RESULTS Performing Organization Address [facility] [place]/[facility] de Phone Number [facility] [address] [place] [address], [place] [phone] * (ABNORMAL) POCT Glucose, blood (10/31/2024 7:52 PM EST) Glucose POCT 112(H) 70 - 100 mg/dL 10/31/2024 7:[address] [facility] Blood Capillary blood specimen / Unknown 10/31/2024 7:52 PM EST 10/31/2024 7:55 PM EST Juliann Man [employer] LAB POINT OF CARE TEST DOCKED DEVICE UNSOLICITED RESULTS Performing Organization Address [facility] [place]/[facility] Co de Phone Number [facility] [address] [place] [address], [place] [phone] * (ABNORMAL) POCT Glucose, blood (10/31/2024 3:36 PM EST) Glucose POCT 105(H) 70 - 100 mg/dL 10/31/2024 3:[address] [facility] Blood Capillary blood specimen / Unknown 10/31/2024 3:36 PM EST 10/31/2024 3:37 PM EST Juliann A Donovan DO LAB POINT OF CARE TEST DOCKED DEVICE UNSOLICITED RESULTS Performing Organization Address [facility]/ZIP Co de Phone Number [facility] [address] [place] [address], [place] [phone] * POCT Glucose, blood (10/31/2024 11:05 AM EST) Glucose POCT 85 70 - 100 mg/dL 10/31/2024 11:[address] [facility] Blood Capillary blood specimen / Unknown 10/31/2024 11:05 AM EST 10/31/2024 11:07 AM EST Juliann A Donovan DO LAB POINT OF CARE TEST DOCKED DEVICE UNSOLICITED RESULTS Performing Organization Address [facility] [place]/[facility]/ZIP Co de Phone Number [facility] [address] [place] [address], [place] [phone] * (ABNORMAL) POCT Glucose, blood (10/31/2024 7:18 AM EST) Glucose POCT 104(H) 70 - 100 mg/dL 10/31/2024 7:[address] [facility] Blood Capillary blood specimen / Unknown 10/31/2024 7:18 AM EST 10/31/2024 7:20 AM EST Juliann A Donovan DO LAB POINT OF CARE TEST DOCKED DEVICE UNSOLICITED RESULTS Performing Organization Address [facility]/ZIP Co de Phone Number [facility] [address] [place] [address], [place] [phone] * (ABNORMAL) POCT Glucose, blood (10/30/2024 8:19 PM EST) Glucose POCT 185(H) 70 - 100 mg/dL 10/30/2024 8:[address] [facility] Blood Capillary blood specimen / Unknown 10/30/2024 8:19 PM EST 10/30/2024 8:22 PM EST Juliann Elizaldeese DO LAB POINT OF CARE TEST DOCKED DEVICE UNSOLICITED RESULTS [facility] [address] [place] [address], [place] [phone] * (ABNORMAL) POCT Glucose, blood (10/30/2024 4:21 PM EST) Glucose POCT 151(H) 70 - 100 mg/dL 10/30/2024 4:[address] [facility] Blood Capillary blood specimen / Unknown 10/30/2024 4:21 PM EST 10/30/2024 4:23 PM EST Juliann Burks Donovan DO LAB POINT OF CARE TEST DOCKED DEVICE UNSOLICITED RESULTS Performing Organization Address City/[facility]/ZIP Co de Phone Number [facility] [address] [place] [address], [place] [phone] * POCT Glucose, blood (10/30/2024 11:16 AM EST) Glucose POCT 95 70 - 100 mg/dL 10/30/2024 11:[address] [facility] Blood Capillary blood specimen / Unknown 10/30/2024 11:16 AM EST 10/30/2024 11:18 AM EST Juliann A Donovan DO LAB POINT OF CARE TEST DOCKED DEVICE UNSOLICITED RESULTS [facility] [address] [place] [address], [place] [phone] * (ABNORMAL) POCT Glucose, blood (10/30/2024 7:22 AM EST) Glucose POCT 109(H) 70 - 100 mg/dL 10/30/2024 7:[address] [facility] Blood Capillary blood specimen / Unknown 10/30/2024 7:22 AM EST 10/30/2024 7:24 AM EST Juliann Elizaldeese DO LAB POINT OF CARE TEST DOCKED DEVICE UNSOLICITED RESULTS [facility] [address] [place] [address], [place] [phone] * (ABNORMAL) POCT Glucose, blood (10/29/2024 8:22 PM EST) Glucose POCT 158(H) 70 - 100 mg/dL 10/29/2024 8:[address] [facility] Blood Capillary blood specimen / Unknown 10/29/2024 8:22 PM EST 10/29/2024 8:24 PM EST Juliann Man DO LAB POINT OF CARE TEST DOCKED DEVICE UNSOLICITED RESULTS [facility] [address] [place] [address], [place] [phone] * (ABNORMAL) POCT Glucose, blood (10/29/2024 4:17 PM EST) Glucose POCT 144(H) 70 - 100 mg/dL 10/29/2024 4:[address] [facility] Blood Capillary blood specimen / Unknown 10/29/2024 4:17 PM EST 10/29/2024 4:18 PM EST Juliann Man DO LAB POINT OF CARE TEST DOCKED DEVICE UNSOLICITED RESULTS Performing Organization Address [facility] [place]/[facility]/ZIP Co de Phone Number [facility] [address] [place] [address], [place] [phone] * POCT Glucose, blood (10/29/2024 11:10 AM EST) Glucose POCT 98 70 - 100 mg/dL 10/29/2024 11:[address] [facility] Blood Capillary blood specimen / Unknown 10/29/2024 11:10 AM EST 10/29/2024 11:11 AM EST Juliann Man LAB POINT OF CARE TEST DOCKED DEVICE UNSOLICITED RESULTS Performing Organization Address [facility] de Phone Number [facility] [address] [place] [address], [place] [phone] * (ABNORMAL) POCT Glucose, blood (10/29/2024 7:26 AM EST) Glucose POCT 152(H) 70 - 100 mg/dL 10/29/2024 7:[address] [facility] Blood Capillary blood specimen / Unknown 10/29/2024 7:26 AM EST 10/29/2024 7:28 AM EST Juliann Elizaldeese LAB POINT OF CARE TEST DOCKED DEVICE UNSOLICITED RESULTS Performing Organization Address [facility] [place]/[facility] Co de Phone Number [facility] [address] [place] [address], [place] [phone] * (ABNORMAL) Complete blood count (10/29/2024 6:03 AM EST) WBC 4.9 4.8 - 10.8 K/mcL LAB HEMETOLOGY METHOD 10/29/2024 7:[address] [facility] RBC 4.60 3.80 - 4.80 M/mcL LAB HEMETOLOGY METHOD 10/29/2024 7:15 AM [facility] Hemoglobin 10.8(L) 11.5 - 16.0 g/dL LAB HEMETOLOGY METHOD 10/29/2024 7:15 AM [facility] Hematocrit 35.7 35.0 - 47.0 % LAB HEMETOLOGY METHOD 10/29/2024 7:15 AM [facility] MCV 78.1(L) 79.0 - 98.0 FL LAB HEMETOLOGY METHOD 10/29/2024 7:15 AM [facility] MCH 23.6(L) 27.0 - 32.0 pcg LAB HEMETOLOGY METHOD 10/29/2024 7:15 AM [facility] MCHC 30.3(L) 32.0 - 37.0 g/dL LAB HEMETOLOGY METHOD 10/29/2024 7:15 AM [facility] RDW 16.0(H) 11.0 - 15.0 % LAB HEMETOLOGY METHOD 10/29/2024 7:15 AM [facility] Platelets 227 130 - 400 K/mcL LAB HEMETOLOGY METHOD 10/29/2024 7:15 AM [facility] MPV 11.0 7.0 - 11.0 FL LAB HEMETOLOGY METHOD 10/29/2024 7:15 AM [facility] NRBC 0.0 <1.0 % LAB HEMETOLOGY METHOD 10/29/2024 7:15 AM [facility] NRBC Absolute 0.00 <0.10 K/mcL LAB HEMETOLOGY METHOD 10/29/2024 7:15 AM [facility] Blood Venous blood specimen / Unknown Venipuncture / Unknown 10/29/2024 6:03 AM EST 10/29/2024 6:41 AM EST Dafne EATON LAB BLOOD ORDERABLES [facility] [address] [place] [address], * (ABNORMAL) Comprehensive metabolic panel (10/29/2024 6:03 AM EST) Sodium 137 133 - 145 mmol/L LAB CHEMISTRY METHOD 10/29/2024 7:30 AM [facility] Potassium 4.6 3.5 - 5.5 mmol/L LAB CHEMISTRY METHOD 10/29/2024 7:30 AM [facility] Chloride 107 96 - 110 mmol/L LAB CHEMISTRY METHOD 10/29/2024 7:30 AM [facility] CO2 27 21 - 32 mmol/L LAB CHEMISTRY METHOD 10/29/2024 7:30 AM [facility] Anion Gap 3 3 - 11 LAB CHEMISTRY METHOD 10/29/2024 7:30 AM [facility] Glucose 109(H) 70 - 100 mg/dL LAB CHEMISTRY METHOD 10/29/2024 7:30 AM [facility] BUN 17 5 - 25 mg/dL LAB CHEMISTRY METHOD 10/29/2024 7:30 AM [facility] Creatinine 0.75 0.50 - 1.10 mg/dL LAB CHEMISTRY METHOD 10/29/2024 7:30 AM [facility] eGFR 90 >=60 mL/min/1. 73m2 LAB CHEMISTRY METHOD 10/29/2024 7:30 AM [facility] Comment:Calculation based on the??Chronic Kidney Disease Epidemiology Collaboration (CKD-EPI) equation refit??without adjustment for race. BUN/Creatinine Ratio 22.7 LAB CHEMISTRY METHOD 10/29/2024 7:30 AM [facility] Calcium 8.8 8.5 - 10.5 mg/dL LAB CHEMISTRY METHOD 10/29/2024 7:30 AM [facility] AST (SGOT) 13 10 - 42 unit/L LAB CHEMISTRY METHOD 10/29/2024 7:30 AM [facility] ALT (SGPT) 14 10 - 60 unit/L LAB CHEMISTRY METHOD 10/29/2024 7:30 AM [facility] Alkaline Phosphatase 70 42 - 121 unit/L LAB CHEMISTRY METHOD 10/29/2024 7:30 AM [facility] Total Protein 6.9 6.0 - 8.0 g/dL LAB CHEMISTRY METHOD 10/29/2024 7:30 AM [facility] Albumin 3.4 3.2 - 5.0 g/dL LAB CHEMISTRY METHOD 10/29/2024 7:30 AM [facility] Total Bilirubin 0.3 0.0 - 1.4 mg/dL LAB CHEMISTRY METHOD 10/29/2024 7:30 AM [facility] Blood Venous blood specimen / Unknown Venipuncture / Unknown 10/29/2024 6:03 AM EST 10/29/2024 6:41 AM EST [facility] BLOOD ORDERABLES Performing Organization Address City/[facility]/ZIP Co de Phone Number [facility] [address] [place] [address], * (ABNORMAL) POCT Glucose, blood (10/28/2024 8:14 PM EST) Glucose POCT 155(H) 70 - 100 mg/dL 10/28/2024 8:[address] [facility] Blood Capillary blood specimen / Unknown 10/28/2024 8:14 PM EST 10/28/2024 8:17 PM EST Juliann Man DO LAB POINT OF CARE TEST DOCKED DEVICE UNSOLICITED RESULTS [facility] [address] [place] [address], [place] [phone] * (ABNORMAL) POCT Glucose, blood (10/28/2024 4:02 PM EST) Glucose POCT 110(H) 70 - 100 mg/dL 10/28/2024 4:[address] [facility] Blood Capillary blood specimen / Unknown 10/28/2024 4:02 PM EST 10/28/2024 4:08 PM EST Juliann Elizaldeese DO LAB POINT OF CARE TEST DOCKED DEVICE UNSOLICITED RESULTS Performing Organization Address [facility] [place]/[facility] Co de Phone Number [facility] [address] [place] [address], [place] [phone] * (ABNORMAL) POCT Glucose, blood (10/28/2024 11:06 AM EST) Glucose POCT 134(H) 70 - 100 mg/dL 10/28/2024 11:[address] [facility] Blood Capillary blood specimen / Unknown 10/28/2024 11:06 AM EST 10/28/2024 11:09 AM EST Juliann Man DO LAB POINT OF CARE TEST DOCKED DEVICE UNSOLICITED RESULTS [facility] [address] [place] [address], [place] [phone] * POCT Glucose, blood (10/28/2024 7:22 AM EST) Glucose POCT 93 70 - 100 mg/dL 10/28/2024 7:[address] [facility] Blood Capillary blood specimen / Unknown 10/28/2024 7:22 AM EST 10/28/2024 7:25 AM EST Juliann Man [employer] LAB POINT OF CARE TEST DOCKED DEVICE UNSOLICITED RESULTS Performing Organization Address [facility] [place]/[facility]/ZIP Co de Phone Number [facility] [address] [place] [address], [place] [phone] * (ABNORMAL) POCT Glucose, blood (10/27/2024 8:00 PM EST) Glucose POCT 107(H) 70 - 100 mg/dL 10/27/2024 8:[address] [facility] Blood Capillary blood specimen / Unknown 10/27/2024 8:00 PM EST 10/27/2024 8:02 PM EST Juliann Man LAB POINT OF CARE TEST DOCKED DEVICE UNSOLICITED RESULTS Performing Organization Address [facility] [place]/[facility] Co de Phone Number [facility] [address] [place] [address], [place] [phone] * (ABNORMAL) POCT Glucose, blood (10/27/2024 4:01 PM EST) Glucose POCT 121(H) 70 - 100 mg/dL 10/27/2024 4:[address] [facility] Blood Capillary blood specimen / Unknown 10/27/2024 4:01 PM EST 10/27/2024 4:03 PM EST [facility]ARE [facility] DOCKED DEVICE UNSOLICITED RESULTS Performing Organization Address [facility] [place]/[facility]/ZIP Co de Phone Number [facility] [address] [place] [address], [place] [phone] * POCT Glucose, blood (10/27/2024 11:24 AM EST) Glucose POCT 98 70 - 100 mg/dL 10/27/2024 11:[address] [facility] Blood Capillary blood specimen / Unknown 10/27/2024 11:24 AM EST 10/27/2024 11:29 AM EST Juliann Man DO LAB POINT OF CARE TEST DOCKED DEVICE UNSOLICITED RESULTS Performing Organization Address [facility] [place]/[facility]/ZIP Co de Phone Number [facility] [address] [place] [address], [place] [phone] * POCT Glucose, blood (10/27/2024 7:27 AM EST) Glucose POCT 99 70 - 100 mg/dL 10/27/2024 7:[address] [facility] Blood Capillary blood specimen / Unknown 10/27/2024 7:27 AM EST 10/27/2024 7:31 AM EST Juliannmukund Carlosabrese LAB POINT OF CARE TEST DOCKED DEVICE UNSOLICITED RESULTS Performing Organization Address [facility] [place]/[facility] de Phone Number [facility] [address] [place] [address], [place] [phone] * (ABNORMAL) POCT Glucose, blood (10/26/2024 8:09 PM EST) Glucose POCT 102(H) 70 - 100 mg/dL 10/26/2024 8:[address] [facility] Blood Capillary blood specimen / Unknown 10/26/2024 8:09 PM EST 10/26/2024 8:11 PM EST Juliann Man DO LAB POINT OF CARE TEST DOCKED DEVICE UNSOLICITED RESULTS Performing Organization Address [facility] [place]/[facility] Co de Phone Number [facility] [address] [place] [address], [place] [phone] * (ABNORMAL) POCT Glucose, blood (10/26/2024 4:26 PM EST) Glucose POCT 120(H) 70 - 100 mg/dL 10/26/2024 5:[address] [facility] Blood Capillary blood specimen / Unknown 10/26/2024 4:26 PM EST 10/26/2024 5:13 PM EST Juliann Man DO LAB POINT OF CARE TEST DOCKED DEVICE UNSOLICITED RESULTS [facility] [address] [place] [address], [place] [phone] * XR Shoulder 2+ Views Right (10/26/2024 2:22 PM EST) Anatomical Region Laterality Modality Upper Extremities, Shoulder Right Radi ographic Imaging 10/26/2024 2:24 PM EST Impressions 10/26/2024 2:25 PM EST No shoulder fracture or dislocation. [id number] -------- FINAL REPORT -------- Dictated By: Dell Abraham Dictated Date: 10/26/2024 14:24 ET Assigned Physician: Dell Abraham Reviewed and Electronically Signed By: Dell Abraham Signed Date: 10/26/2024 14:25 ET Workstation ID: [id number] Transcribed By: Self Edit Transcribed Date: 10/26/2024 [...] changes. IMPRESSION: No shoulder fracture or dislocation. [id number] -------- FINAL REPORT -------- Dictated By: Dell Abraham Dictated Date: 10/26/2024 14:24 ET Assigned Physician: Dell Abraham Reviewed and Electronically Signed By: Dell Abraham Signed Date: 10/26/2024 14:25 ET Workstation ID: [id number] Transcribed By: Self Edit Transcribed Date: 10/26/2024 14:24 ET Juliann Man DO IMG XR PROCEDURES * POCT Glucose, blood (10/26/2024 11:10 AM EST) Glucose POCT 88 70 - 100 mg/dL 10/26/2024 11:[address] [facility] Blood Capillary blood specimen / Unknown 10/26/2024 11:10 AM EST 10/26/2024 11:39 AM EST Juliann Man DO LAB POINT OF CARE TEST DOCKED DEVICE UNSOLICITED RESULTS Performing Organization Address City/[facility]/ZIP Co de Phone Number [facility] [address] [place] [address], * POCT Glucose, blood (10/26/2024 7:21 AM EST) [facility] Signature Glucose POCT 100 70 - 100 mg/dL 10/26/2024 7:[address] [facility] Blood Capillary blood specimen / Unknown 10/26/2024 7:21 AM EST 10/26/2024 7:23 AM EST Juliann Man DO LAB POINT OF CARE TEST DOCKED DEVICE UNSOLICITED RESULTS Performing Organization Address City/[facility]/ZIP Co de Phone Number [facility] [address] [place] [address], [place] [phone] * (ABNORMAL) CBC auto differential (10/26/2024 6:38 AM EST) WBC 5.4 4.8 - 10.8 K/mcL LAB HEMETOLOGY METHOD 10/26/2024 7:03 AM [facility] RBC 5.10(H) 3.80 - 4.80 M/mcL LAB HEMETOLOGY METHOD 10/26/2024 7:03 AM [facility] Hemoglobin 12.2 11.5 - 16.0 g/dL LAB HEMETOLOGY METHOD 10/26/2024 7:03 AM [facility] Hematocrit 39.8 35.0 - 47.0 % LAB HEMETOLOGY METHOD 10/26/2024 7:03 AM [facility] MCV 78.7(L) 79.0 - 98.0 FL LAB HEMETOLOGY METHOD 10/26/2024 7:03 AM [facility] MCH 24.1(L) 27.0 - 32.0 pcg LAB HEMETOLOGY METHOD 10/26/2024 7:03 AM [facility] MCHC 30.7(L) 32.0 - 37.0 g/dL LAB HEMETOLOGY METHOD 10/26/2024 7:03 AM [facility] RDW 15.7(H) 11.0 - 15.0 % LAB HEMETOLOGY METHOD 10/26/2024 7:03 AM [facility] Platelets 253 130 - 400 K/mcL LAB HEMETOLOGY METHOD 10/26/2024 7:03 AM [facility] MPV 11.0 7.0 - 11.0 FL LAB HEMETOLOGY METHOD 10/26/2024 7:03 AM [facility] NRBC 0.0 <1.0 % LAB HEMETOLOGY METHOD 10/26/2024 7:03 AM [facility] NRBC Absolute 0.00 <0.10 K/mcL LAB HEMETOLOGY METHOD 10/26/2024 7:03 AM [facility] Neutrophils Relative 31.4 % LAB HEMETOLOGY METHOD 10/26/2024 7:03 AM [facility] Lymphocytes Relative 49.4 % LAB HEMETOLOGY METHOD 10/26/2024 7:03 AM [facility] Monocytes Relative 10.8 % LAB HEMETOLOGY METHOD 10/26/2024 7:03 AM [facility] Eosinophils Relative 7.8 % LAB HEMETOLOGY METHOD 10/26/2024 7:03 AM [facility] Basophils Relative 0.4 % LAB HEMETOLOGY METHOD 10/26/2024 7:03 AM [facility] Immature Granulocytes Relative 0.2 % LAB HEMETOLOGY METHOD 10/26/2024 7:03 AM [facility] Neutrophils Absolute 1.69 1.50 - 7.00 K/mcL LAB HEMETOLOGY METHOD 10/26/2024 7:03 AM [facility] Lymphocytes Absolute 2.66 1.00 - 5.00 K/mcL LAB HEMETOLOGY METHOD 10/26/2024 7:03 AM [facility] Monocytes Absolute 0.58 0.20 - 1.00 K/mcL LAB HEMETOLOGY METHOD 10/26/2024 7:03 AM [facility] Eosinophils Absolute 0.42 0.00 - 0.50 K/mcL LAB HEMETOLOGY METHOD 10/26/2024 7:03 AM [facility] Basophils Absolute 0.02 0.00 - 0.20 K/mcL LAB HEMETOLOGY METHOD 10/26/2024 7:03 AM [facility] Immature Granulocytes Absolute 0.01 0.00 - 0.03 K/mcL LAB HEMETOLOGY METHOD 10/26/2024 7:03 AM [facility] Blood Venous blood specimen / Unknown Venipuncture / Unknown 10/26/2024 6:38 AM EST 10/26/2024 6:46 AM EST [facility] BLOOD ORDERABLES Performing Organization Address City/[facility]/ZIP Co de Phone Number [facility] [address] [place] [address], [place] [phone] * Hemoglobin A1c (10/26/2024 6:38 AM EST) Pathologist [facility] Hemoglobin A1C 6.1 <6.5 % LAB CHEMISTRY METHOD 10/26/2024 1:05 PM [facility] Mean Bld Glu Estim. 128 mg/dL LAB CHEMISTRY METHOD 10/26/2024 1:05 PM [facility] Blood Venous blood specimen / Unknown Venipuncture / Unknown 10/26/2024 6:38 AM EST 10/26/2024 6:46 AM EST [facility] BLOOD ORDERABLES Performing Organization Address [facility] [place]/[facility] Co de Phone Number [facility] [address] [place] [address], [place] [phone] * Comprehensive metabolic panel (10/26/2024 6:38 AM EST) [facility] Sodium 137 133 - 145 mmol/L LAB CHEMISTRY METHOD 10/26/2024 7:43 AM [facility] Potassium 3.7 3.5 - 5.5 mmol/L LAB CHEMISTRY METHOD 10/26/2024 7:43 AM [facility] Chloride 105 96 - 110 mmol/L LAB CHEMISTRY METHOD 10/26/2024 7:43 AM [facility] CO2 27 21 - 32 mmol/L LAB CHEMISTRY METHOD 10/26/2024 7:43 AM [facility] Anion Gap 5 3 - 11 LAB CHEMISTRY METHOD 10/26/2024 7:43 AM [facility] Glucose 88 70 - 100 mg/dL LAB CHEMISTRY METHOD 10/26/2024 7:43 AM [facility] BUN 15 5 - 25 mg/dL LAB CHEMISTRY METHOD 10/26/2024 7:43 AM [facility] Creatinine 0.92 0.50 - 1.10 mg/dL LAB CHEMISTRY METHOD 10/26/2024 7:43 AM [facility] eGFR 70 >=60 mL/min/1. 73m2 LAB CHEMISTRY METHOD 10/26/2024 7:43 AM [facility] Comment:Calculation based on the??Chronic Kidney Disease Epidemiology Collaboration (CKD-EPI) equation refit??without adjustment for race. BUN/Creatinine Ratio 16.3 LAB CHEMISTRY METHOD 10/26/2024 7:43 AM [facility] Calcium 9.6 8.5 - 10.5 mg/dL LAB CHEMISTRY METHOD 10/26/2024 7:43 AM [facility] AST (SGOT) 14 10 - 42 unit/L LAB CHEMISTRY METHOD 10/26/2024 7:43 AM [facility] ALT (SGPT) 13 10 - 60 unit/L LAB CHEMISTRY METHOD 10/26/2024 7:43 AM [facility] Alkaline Phosphatase 82 42 - 121 unit/L LAB CHEMISTRY METHOD 10/26/2024 7:43 AM [facility] Total Protein 7.2 6.0 - 8.0 g/dL LAB CHEMISTRY METHOD 10/26/2024 7:43 AM [facility] Albumin 3.7 3.2 - 5.0 g/dL LAB CHEMISTRY METHOD 10/26/2024 7:43 AM [facility] Total Bilirubin 0.4 0.0 - 1.4 mg/dL LAB CHEMISTRY METHOD 10/26/2024 7:43 AM [facility] Blood Venous blood specimen / Unknown Venipuncture / Unknown 10/26/2024 6:38 AM EST 10/26/2024 6:47 AM EST [facility] BLOOD ORDERABLES Performing Organization Address [facility] [place]/[facility] Co de Phone Number [facility] [address] [place] [address], * (ABNORMAL) POCT Glucose, blood (10/25/2024 8:31 PM EST) Glucose POCT 117(H) 70 - 100 mg/dL 10/25/2024 8:[address] [facility] Blood Capillary blood specimen / Unknown 10/25/2024 8:31 PM EST 10/25/2024 8:34 PM EST Juliann Man DO LAB POINT OF CARE TEST DOCKED DEVICE UNSOLICITED RESULTS Performing Organization Address [facility] de Phone Number [facility] [address] [place] [address], * (ABNORMAL) POCT Glucose, blood (10/25/2024 4:24 PM EST) Glucose POCT 114(H) 70 - 100 mg/dL 10/25/2024 4:[address] [facility] Blood Capillary blood specimen / Unknown 10/25/2024 4:24 PM EST 10/25/2024 4:26 PM EST Juliann Man DO LAB POINT OF CARE TEST DOCKED DEVICE UNSOLICITED RESULTS Performing Organization Address [facility] [place]/[facility] Co de Phone Number [facility] [address] [place] [address], [place] [phone] * ECG-Outside (10/25/2024) Provider Onbase MD ECG ORDERABLES documented in this encounter Visit Diagnoses Diagnosis Cerebrovascular accident (CVA), unspecified mechanism (CMS/HCC)- Primary Stroke (CMS/HCC) Unspecified cerebral artery occlusion with cerebral infarction Diabetes (CMS/HCC) Type II or unspecified type diabetes mellitus without mention of complication, not stated as uncontrolled CVA (cerebral vascular accident) ([facility]) Unspecified cerebral artery occlusion with cerebral infarction Noncompliance HTN (hypertension) Unspecified essential hypertension TIA (transient ischemic attack) Unspecified transient cerebral ischemia documented in this encounter Admitting Diagnoses Diagnosis CVA (cerebral vascular accident) ([facility]) Unspecified cerebral artery occlusion with cerebral infarction [...] on Thu10/26/24 at 0900, Indication: VTE/PE Prophylaxis 08 (Given - Provider: Vick Blanco RN) 09 (Given - Provider: Carol Martínez RN) 913 (Given - Provider: Carol Martínez RN) atorvastatin (LIPITOR) tablet 40 mg 40 mg, oral, Nightly, First dose on Thu10/25/24 at 2100 2009 (Given - Provider: Felicity Scott RN) 2125 (Given - Provider: Leeanna Garcia, MARGARITA) [...] 08 (Given - Provider: Vick Blanco RN) 51 (Given - Provider: Carol Martínez RN - Comment: nurse in other opts room.) 904 (Given - Provider: Carol Martínez RN - Comment: am meal) clopidogreL (PLAVIX) tablet 75 mg 75 mg, oral, Daily, First dose on Thu10/26/24 at 0900, Indications: CVA 0806 (Given - Provider: Vick Blanco RN) 09 (Given - Provider: Carol Martínez RN) 912 (Given - Provider: Carol Martínez RN) docusate sodium (COLACE) capsule 100 mg 100 mg, oral, 2 times daily, First dose on Thu10/25/24 at 2100 08 (Not Given - Provider: Vick Blanco RN [...] at 0900, Do not crush or chew. 08 (Given - Provider: Vick Blanco RN) 950 (Given - Provider: Carol Martínez RN) 912 (Given - Provider: Carol Martínez RN) ferrous sulfate tablet 325 mg 325 mg, [...] Martínez RN) 912 (Given - Provider: Carol Martínez RN) formoterol (PERFOROMIST) 20 mcg/2 mL nebulizer solution 20 mcg(Linked Group 1) 20 mcg, nebulization, 2 times daily, First dose on Thu10/25/24 at 2100, Therapeutic substitution for SYMBICORT 80/4.5 is budesonide neb daily and formoterol neb twice daily. 08 (Given - Provider: Vick Blanco RN)2009 (Given - Provider: Felicity Scott RN) 950 (Given - Provider: Carol Martínez RN)2131 (Given - Provider: Leeanna Garcia RN) 904 (Given - Provider: Carol Martínez, MARGARITA) gabapentin (NEURONTIN) capsule 400 mg 400 mg, oral, Every 8 hours scheduled, First dose (after last modification) on Thu10/28/24 at 1400 0522 (Given - Provider: Felicity Scott RN)142 (Given - Provider: Vick Blanco RN)2015 (Given - Provider: Felicity Scott RN - Comment: pt wants all hs meds now to go to bed) 0510 (Given - Provider: Felicity Scott RN)1400 (Canceled Entry - Provider: Automatic Discharge Provider - Comment: Automatically canceled at discontinue of medication order)2130 (Given - Provider: Leeanna Garcia, MARGARITA) 0506 (Given - Provider: Katt Garg RN)1400 (Canceled Entry - Provider: Automatic Discharge [...] (Patch Removed - Provider: Felicity Scott RN) 0900 (Canceled Entry - Provider: Automatic Discharge Provider - Comment: Automatically canceled at discontinue of medication order) 0913 (Patch Applied - Provider: Carol Martínez RN [...] Scott RN) 0506 (Given - Provider: Katt Garg, MARGARITA) senna (SENOKOT) tablet 17.2 mg 17.2 mg [...] at 1551 0523 (Given - Provider: Felicity Scott RN)1136 (Given - Provider: Vick Blanco RN)2010 (Given - Provider: Felicity Scott RN) 0509 (Given - Provider: Felicity Scott, MARGARITA)2137 (Given - Provider: Leeanna Garcia RN) Linked [...] Ordered Date carvediloL (COREG) tablet 6.25 mg 1 025 carvediloL (COREG) tablet 12.5 mg 1 025 gabapentin (NEURONTIN) capsule 500 mg 1 05/2025 gabapentin (NEURONTIN) capsule 800 mg 1 05/2025 sacubitriL-valsartan (ENTRES TO) 24-26 mg per tablet 1 tablet 1 10/26/2024 albuterol 2.5 mg /3 mL (0.08 3 %) nebulizer solution 2.5 mg 1 10/25/2024 amLODIPine (NORVASC) tablet 10 mg 1 025 dextrose (D50W) 50% injection 12.5 g 1 04/2025 dextrose (D50W) 50% injection 25 g 1 2024 dextrose 15 gram/60 mL oral solution 15 g 10/25/2024 dextrose 15 gram/60 mL oral solution 30 g 1 10/25/2024 Glucagon HCl (rDNA) injection 1 mg 1 2024 Lab Orders Without Results Count Last Ordered D ate First Ordered Date POCT GLUCOSE, BLOOD 44 11/06/2024 10/25/19 25 Consult Count Last Ordered Date First Orde red Date IP CONSULT TO NUTRITION SERVICES 1 11/02/19 25 VESSEL CAPTAIN Count Last Ordered Date First Orde red Date VESSEL CAPTAIN EVAL AND TREAT 1 10/25/2024 Admission Count Last Ordered Date First Orde red Date ADMIT TO INPATIENT REHAB 1 10/25/2024 Discharge Count Last Ordered Date First Orde red Date DISCHARGE PATIENT 1 11/08/2024 documented in this encounter Additional Health Concerns Assessment Noted Time PHQ-9 Depression Total Score: 1 11/07/19 25 4:11 PM EST documented as of this encounter Care Teams It Support Manager Relationship Specialty Start Date End Date Sheree Strong FNP [address] [place] [id number] PCP - General Nurse Practitioner 10/24/24 documented as of this encounter
== END 2024-11-14 11:19 | disposition home or self-care (01) ==
PROVIDERS: PCP Nurse Practitioner Primary Care; Visit Provider Internal Medicine Hypertension Specialist
DX: I12.9 Hypertensive chronic kidney disease with stage 1 through stage 4 chronic kidney disease, or unspecified chronic kidney disease (principal); N18.9 Chronic kidney disease, unspecified
CPT/HCPCS: 99214

== ENCOUNTER → 2024-11-14 10:58 | Outpatient (BNVA) | payer MEDICAID, SELFPAY | PROVIDERS: PCP Nurse Practitioner Primary Care; Visit Provider Internal Medicine Hypertension Specialist | DX: I12.9 Hypertensive chronic kidney disease with stage 1 through stage 4 chronic kidney disease, or unspecified chronic kidney disease (principal); N18.9 Chronic kidney disease, unspecified; N26.1 Atrophy of kidney (terminal) | CPT/HCPCS: 99212 ==

== ENCOUNTER 2025-01-06 11:21 | Outpatient (REF) | payer MEDICAID, SELFPAY ==
--- NOTE | ~2025-01-06 | XR_ITS ---
EXAMINATION: XR SHOULDER, RIGHT CLINICAL INFORMATION: Chronic right shoulder pain with decreased ROM COMPARISON: November 14, 2016. TECHNIQUE: AP external rotation, Grashey, scapular Y, and axillary views of the right shoulder. FINDINGS: No acute cortical disruption or malalignment. No lytic or blastic lesions. No gross degenerative changes. Sternal wires no fully included in the [id number]. XR/XR shoulder RT min 2V IMPRESSION: No acute fracture or dislocation. Stable. Electronically signed by: Romel Iyer MD 01/06/2025 01:09 PM EDT
[2025-01-06 13:50] LABS: Anion Gap 10 (12-20); Blood Urea Nitrogen 13 mg/dL (9-16); Calcium 9.9 mg/dL (8.4-10.2); Carbon Dioxide 26 mmol/L (22-29); Chloride 105 mmol/L (96-108); Estimated Glomerular Filt Rate > 60; Glucose Random 81 mg/dL (60-115); Potassium 4.1 mmol/L (3.3-5.1); Sodium 137 mmol/L (135-145)
== END 2025-01-06 11:22 | disposition home or self-care (01) ==
LOC: HO.HHCL 11:21
PROVIDERS: Visit Provider Internal Medicine Geriatric Medicine
DX: M25.511 Pain in right shoulder (principal); N17.9 Acute kidney failure, unspecified
CPT/HCPCS: 36415; 73030; 80048

== ENCOUNTER → 2025-01-06 11:31 | Outpatient (BNV) | payer MEDICAID, SELFPAY | PROVIDERS: Visit Provider Radiology Diagnostic Radiology | DX: M25.511 Pain in right shoulder (principal) | CPT/HCPCS: 73030 ==

== ENCOUNTER 2025-01-10 10:22 | Outpatient (REF) | payer MEDICAID, SELFPAY ==
--- NOTE | ~2025-01-10 | MM_ITS ---
EXAMINATION: MM DIAGNOSTIC DIGITAL BREAST TOMOSYNTHESIS, BILATERAL Collateral Limited ultrasound. CLINICAL INFORMATION: Bilateral breast pain. Left palpable lump. History of right breast surgery near the nipple. COMPARISON: Mammography: Comparison is made with relevant prior exams. TECHNIQUE: Digital breast mammography with tomosynthesis is performed in both the craniocaudal and mediolateral oblique views along with computer-aided detection (CAD). FINDINGS: There are scattered areas of fibroglandular density (ACR BI-RADS breast composition Category b). Left: Palpable BB marker in the upper outer breast at site of palpable lump without underlying abnormality. [place] marker in the upper inner breast at site of pain without underlying abnormality. No suspicious masses calcifications or other abnormal findings. Targeted color Doppler ultrasound scanning in the left breast upper outer quadrant upper inner quadrant areas of pain and palpable lump demonstrates normal fibronodular breast tissue. There is no sonographic abnormality. Right: Triangular marker in the upper outer breast at site of pain without underlying abnormality. Post surgical changes in the retroareolar region. Targeted color Doppler ultrasound scanning from 10-2 o'clock demonstrates normal fibroglandular breast tissue. There is no sonographic abnormality. Results are provided to the patient at time of visit by the technologist. MM/MM tomosynthesis diagnostic BI IMPRESSION: No mammographic or sonographic abnormality to account for the sites of bilateral breast pain and left palpable lump. Recommend clinical evaluation and follow-up. Recommend routine annual screening. ASSESSMENT: BI-RADS BI-RADS 2 - Benign Findings RECOMMENDATION: 1 year F/U This patient's information was entered into a reminder system with a target due date for their next mammogram. Electronically signed by: Emperatriz Dey DO 01/10/2025 11:43 AM EDT
--- OUTSIDE RECORDS SUMMARY | 2025-01-10 12:26 | XMS_ITS | Encounter Summary ---
Demographics Address [address] [place] [address] Work Phone Mobile Phone Email Address Preferred Language en Marital Status Latter Day Affiliation Unknown Race Other Race Ethnic Group or Author Organization [facility] Address [address] [place] [address] Care Team Providers Care Barrel Cleaner Name Role Phone Sheree Strong NP Primary Care Provider [phone] Encounter Details Date Type Department Care Team ([facility] st Contact Info) Description 12/30/2024 Population Health Risk Score [facility] (C3) Department [address] [id number] Provider, Population Health Generic Social History Tobacco Use Types Packs/Day Years [...] Pests such as bugs, ants, or mice;Lead [place] or Pipes;Inadequate heat 09/06/2024 Food Insecurity Answer [...] Care Team (Late st Contact Info) Description 01/13/2025 10:00 AM EDT Telemedicine [facility] MEDICINE [address] [place] [address] 02/16/2025 2:00 PM EDT Office Visit [facility] OPTOMETRY [address] [place] [address] Pramod, Martine, OD [address] [place] [address] 04/07/2025 10:15 AM EDT Office Visit [facility] MEDICINE [address] [place] [address] Sheree Strong NP [address] [place] [address] documented as of this encounter Visit Diagnoses Not on filedocumented in this encounter Additional Health Concerns Assessment Noted Time PHQ-9 Depression Total Score: 17 024 2:44 PM EST documented as of this encounter Care Teams Barrel Cleaner Relationship Specialty Start Date End Date Sheree Strong NP [address] [place] [address] PCP - General Family Medicine 09/06/24 documented as of this encounter
--- OUTSIDE RECORDS SUMMARY | 2025-01-10 12:26 | XMS_ITS | Encounter Summary ---
Demographics Address [address] [place] [address] Work Phone Mobile Phone Email Address Preferred Language en Marital Status Anabaptist Affiliation Unknown Race Other Race Ethnic Group or Author Organization [employer] [facility] Address [address] [place] [address] Care Team Providers Care Tile And Marble Setter Name Role Phone Sheree Strong NP Primary Care Provider [phone] Reason for Referral * Consultation (Routine) - Authorized Specialty Diagnoses / Procedures Referred By Contac t Referred To Contact Family Medicine Diagnoses Right shoulder pain, unspecified chronicity Dante Chamberlain MD [address] [place] [address] Phone: tel: fax: Keyanna De La Torre MD [address] [place] [address] Phone: tel: fax: Referral ID Status Reason Start Date Expiration Date Visits Requested Visits Authorized [id number] Authorized Consult and Treat 01/06/2025 01/06/2026 1 1 Reason for Visit * Reason Comments HDF Encounter Details Date Type Department Care Team (Late st Contact Info) Description 01/06/2025 10:30 AM EDT Office Visit [facility] [address] [place] [id number] Dante Chamberlain MD [address] [place] [address] [phone] Essential hypertension (Primary Dx); Type 2 diabetes mellitus with other specified complication, unspecified whether intermediate insulin use (CMS/HCC); Cerebrovascular accident (CVA), unspecified mechanism (CMS/HCC); Migraine without aura and without status migrainosus, not intractable; YANICK (acute kidney injury) (CMS/HCC); Right shoulder pain, unspecified chronicity Social History Tobacco Use Types Packs/Day Years Used Date Smoking Tobacco: Former Cigarettes Q uit: 1977 Smokeless Tobacco: Never Tobacco Cessation:Counseling Given: Not Answered Depression Answer Date Recorded Patient Health Questionnaire-9 [...] Pests such as bugs, ants, or mice;Lead Zarephath or Pipes;Inadequate heat 09/06/2024 Food Insecurity Answer [...] Sign Reading Time Taken Comments Blood Pressure 151/94 01/06/2025 10:41 AM EDT Pulse 66 01/06/2025 10:41 AM EDT Temperature 36.2 ??C (97.1 ??F) 01/06/2025 10:41 AM E DT Respiratory Rate 21 01/06/2025 10:41 AM EDT Oxygen Saturation 99% 01/06/2025 10:41 AM EDT Inhaled Oxygen Concentration - - Weight 51.9 kg (114 lb 6.4 oz) 01/06/2025 10:41 AM EDT Height 160 cm (5' 3 ) 01/06/2025 10:41 AM EDT Body Mass Index 20.27 01/06/2025 10:41 AM EDT documented in this encounter Progress Notes * Dante Name, - 01/06/2025 10:30 AM EDT Subjective Patient ID: Estephania Bill is a 64 y.o. female who presents for HDF. Patient comes for a hospital discharge follow-up. She was admitted in October at [facility] for a stroke. Fortunately she has recovered well. She does not have any residual weakness. Today we noted her blood pressure is elevated. Her BP has been high at home as well. Patient's antihypertensives were discontinued during her rehab stay because of hypotension but blood pressure is running high again. She does not have any chest pains or shortness of breath. Today she also complains of several months of right shoulder pain. She does not have any history oftrauma. No swelling or redness. She is unable to raise the arm because of the pain. Summary of the recent hospitalization is written below: Hospital Course and Medication Reconciliation [facility] (10/19/24 - 10/25/24) Patient presented to the ED due to chest pain radiating to the left arm. While in the ED, patient developed left-sided numbness/tingling and left facial droop. Stroke alert was activated. Imaging showed chronic left vertebral occlusion, which was treated with tenecteplase. During the hospital stay,the patient was questioned about their nonadherence, and at discharge, they were recommended to continue all medications. The patient was discharged to [facility] rehab. No medication changes occurred at this hospitalization [facility] (10/25/24 - 11/08/24) Patient presented for stroke rehabilitation post-hospitalization at [facility]. Patient had hypotension during their stay, so carvedilol and Entresto were both decreased in dosing. All antihypertensives eventually discontinued. Imaging done due to altered mental status, no significant findings reported. Gabapentin was decreased due to renal function and hypotension. Discharged home with plans to follow up with neurology stroke clinic. Medication changes that occurred during hospitalization include: ?? Added: ?? Lidocaine 4% patch; apply 1 patch topically 1 time each day for right shoulder pain. ?? Oxycodone 5 mg IR tablet; take 0.5 tablets by mouth 2 times a day as needed for severe pain for up to 7 days. ?? Senna 8.6 mg tablet: take 2 tablets by mouth at bedtime ?? Changed: ?? Gabapentin 800 mg every 8 hours decreased to 400 mg every 8 hours ?? Discontinued: ?? Acetaminophen 500 mg ?? Albuterol HFA 90 mcg/actuation inhaler ?? Amlodipine 10 mg ?? Carvedilol 25 mg BID ?? Entresto 97-103 mg BID Review of Systems Constitutional: Negative for chills and fever. HENT: Negative for sore throat. Respiratory: Negative for cough, shortness of breath and wheezing. Cardiovascular: Negative for chest pain, palpitations and leg swelling. Gastrointestinal: Negative for abdominal pain. Musculoskeletal: See HPI Visit Vitals BP (!) 151/94 (BP Location: Left arm, Patient Position: Sitting, BP Cuff Size: Adult) Pulse 66 Temp 97.1 ??F (36.2 ??C) (Temporal) Resp 21 Ht 5' 3 (1.6 m) Wt 114 lb 6.4 oz (51.9 kg) SpO2 99% BMI 20.27 kg/m?? Smoking Status Former BSA 1.52 m?? Objective Physical Exam Constitutional: Appearance: Normal appearance. Cardiovascular: Rate and Rhythm: Normal rate and regular rhythm. Heart sounds: No murmur heard. No gallop. Pulmonary: Effort: Pulmonary effort is normal. No respiratory distress. Breath sounds: Normal breath sounds. No wheezing. Musculoskeletal: Right shoulder: Tenderness present. No bony tenderness. Decreased range of motion. Right lower leg: No edema. Left lower leg: No edema. Neurological: General: No focal deficit present. Mental Status: She is alert. Lab Results Component Value Date HGBA1C 5.9 01/06/2025 HGBA1C 5.8 09/06/2024 Assessment/Plan Diagnoses and all orders for this visit: Essential hypertension Comments: Restart carvedilol. Continue checking BP at home. Follow-up televisit with the nurses next week forBP recheck. Type 2 diabetes mellitus with other specified complication, unspecified whether intermediate insulin use ([facility]) Comments: She has a history of diabetes that is diet controlled at the moment. Orders: - POCT Glucose - POCT HGB A1C Cerebrovascular accident (CVA), unspecified mechanism ([facility]) Comments: No residual deficit. Continue statin, aspirin, Plavix. I restarted her carvedilol for hypertension today. Migraine without aura and without status migrainosus, not intractable Comments: She has been having migraines. Recurrent problem for her for many years. More frequent since she came off carvedilol. I restarted carvedilol. I recommended acetaminophen at the onset of the headaches. I prescribed her Zofran for nausea if needed. YANICK (acute kidney injury) ([facility]) Comments: History of YANICK. Recheck BMP. Consider restarting Entresto if normal. Orders: - Basic Metabolic Panel; Future Right shoulder pain, unspecified chronicity Comments: Check shoulder x-ray. Acetaminophen for pain. Referral to joint injection clinic. Orders: - XR Shoulder 2+ Views Right; Future - Referral to Joint Injection Clinic; Future Other orders - acetaminophen (Tylenol Extra Strength) 500 MG tablet; Take 1 tablet (500 mg) by mouth every 8 (eight) hours if needed for moderate pain. - carvedilol (Coreg) 12.5 MG tablet; Take 1 tablet (12.5 mg) by mouth with breakfast and with evening meal. - ondansetron (Zofran) 4 MG tablet; Take 1 tablet (4 mg) by mouth every 8 (eight) hours if needed for nausea for up to 7 days. - Tdap vaccine greater than or equal to 7 years old IM documented in this encounter Plan of Treatment Upcoming Encounters Date Type Department Care Team (Late st Contact Info) Description 01/13/2025 10:00 AM EDT Telemedicine [facility] [address] [place] [phone] 02/16/2025 2:00 PM EDT Office Visit [facility] [address] [place] [address] Martine Benavidez, OD [address] [place] [address] 04/07/2025 10:15 AM EDT Office Visit [facility] [address] [place] [address] Sheree Strong, LISHA [address] [place] [address] Scheduled Referrals Name Type Priority Associated Diagnoses Orde r Schedule Referral to Joint Injection Clinic Outpatient Referral Routine Right shoulder pain, unspecified chronicity Expected: 01/06/2025 (Approximate), Expires: 01/06/2026 documented as of this encounter Procedures Procedure Name Priority Date/Time Associated Diagnosis Comments XR SHOULDER 2+ VIEWS RIGHT Routine 01/06/2025 11:31 AM EDT Right shoulder pain, unspecified chronicity BASIC METABOLIC PANEL Routine 01/06/2025 11:27 AM EDT YANICK (acute kidney injury) ([facility]) POCT GLYCATED HEMOGLOBIN, TOTAL Routine 01/06/2025 10:48 AM EDT Type 2 diabetes mellitus with other specified complication, unspecified whether terminal gauger insulin use ([facility]) POCT GLUCOSE Routine 01/06/2025 10:48 AM EDT Type 2 diabetes mellitus with other specified complication, unspecified whether intermediate insulin use ([facility]) documented in this encounter Results * XR Shoulder 2+ Views Right (01/06/2025 11:31 AM EDT) Anatomical Region Laterality Modality Upper Extremities, Shoulder Right Radi ographic Imaging 01/06/2025 11:3 1 AM EDT Narrative 01/06/2025 1:12 PM EDT ? [facility] ?[address] ?[place] [address] ?XRay Report ? Signed ? Patient: Bill,Estephania ?MR#: [id number] ?? [id number] ? : 1960 ?Acct:[id number] ? Age/Sex: 64 / F ?ADM Date: 01/06/25 ? Loc: HO.HHCL ? Attending Dr: Dante Chamberlain MD ? Ordering Physician: Dnate Chamberlain MD ?? Date of Service: 01/06/25 ?? Procedure(s): XR shoulder RT min 2V ?? Accession Number(s): [id number] ? cc: Dante Chamberlain MD ? EXAMINATION: ?? XR SHOULDER, RIGHT ? CLINICAL INFORMATION: ?? Chronic right shoulder pain with decreased ROM ? COMPARISON: ?? November 14, 2016. ? TECHNIQUE: ?? AP external rotation, Grashey, scapular Y, and axillary views of the ?? right shoulder. ? FINDINGS: ?? No acute cortical disruption or malalignment. No lytic or blastic ?? lesions. No gross degenerative changes. Sternal wires no fully included ?? in the [id number]-we-rsep. ? XR/XR shoulder RT min 2V ?? IMPRESSION: ?? No acute fracture or dislocation. Stable. ? Electronically signed by: ??Romel Iyer MD ??01/06/2025 01:09 PM ?? EDT RP ? Dictated By: ?Romel Schofield MD ? Signed By: ?<Electronically signed by Romel Tian MD in [place]> ? 01/06/25 1309 ? DD/ 1131 ? TD/TT: 01/06/25 1200 ? Bar Pointer: ? Procedure Note Jules Alvarado - 01/06/[address] [address] XRay Report Signed Patient: Estephania BillMR#: [id number] : 1960cct:[id number] Age/Sex: 64 / FADM Date: 01/06/25 Loc: HO.CL Attending Dr: Dante Chamberlain MD Ordering Physician: Dante Chamberlain MD Date of Service: 01/06/25 Procedure(s): XR shoulder RT min 2V Accession Number(s): [id number] cc: NameDante MD EXAMINATION: XR SHOULDER, RIGHT CLINICAL INFORMATION: Chronic right shoulder pain with decreased ROM COMPARISON: November 14, 2016. TECHNIQUE: AP external rotation, Grashey, scapular Y, and axillary views of the right shoulder. FINDINGS: No acute cortical disruption or malalignment. No lytic or blastic lesions. No gross degenerative changes. Sternal wires no fully included in the [id number]. XR/XR shoulder RT min 2V IMPRESSION: No acute fracture or dislocation. Stable. Electronically signed by: Romel Iyer MD 01/06/2025 01:09 PM EDT RP Dictated By: Romel Schofield MD Signed By: <Electronically signed by Romel Tian MDin OV> 01/06/25 1309 DD/ 1131 TD/TT: 01/06/25 1200 Bar Pointer: Dante Chamberlain MD IM XR PROCEDURES Final Result * (ABNORMAL) Basic Metabolic Panel (01/06/2025 11:27 AM EDT) Sodium 137 135 - 145 mmol/L [facility] Potassium 4.1 3.3 - 5.1 mmol/L [facility] Chloride 105 96 - 108 mmol/L [facility] Carbon Dioxide 26 22 - 29 mmol/L [facility] Anion Gap 10(L) 12 - 20 [facility] Urea Nitrogen (BUN) 13 9 - 16 mg/dL [facility] Creatinine, Serum 0.87 0.5 - 1.4 mg/dL [facility] Estimated Glomerular Filt Rate >60 [facility] Comment:Chronic Kidney Disea se: Estimated GFR < 60 mL/min/1.47u0Cueosk Kidney Disease: Estimated GFR < 15 mL/min/1.73m2 Glucose 81 60 - 115 mg/dL [facility] Calcium 9.9 8.4 - 10.2 mg/dL [facility] Blood Venous blood specimen / Unknown 01/06/2025 11:27 AM EDT 01/06/2025 1:22 PM EDT us Dante Chamberlain MD LAB BLOOD ORDERABLES Final Resul t [facility] [address] [place] [address] [phone] * POCT HGB A1C (01/06/2025 10:48 AM EDT) Hemoglobin A1C 5.9 4.0 - 6.0 % QC Media Lot # [id number] Lot# Expiration Date 110,[id number] Blood 01/06/2025 10:4 8 AM EDT Dante Chamberlain MD POINT OF CARE TEST ENTER/EDIT OR DERABLES Final Result * POCT Glucose (01/06/2025 10:48 AM EDT) Glucose Blood, POC 91 60 - 200 mg/dL QC Media Lot # [id number] Lot# Expiration Date [id number] Blood Capillary blood specimen / Unknown 01/06/2025 10:48 AM EDT us Dante Chamberlain MD POINT OF CARE TEST ENTER/EDIT OR DERABLES Final Result documented in this encounter Visit Diagnoses Diagnosis Essential hypertension- Primary Unspecified essential hypertension Type 2 diabetes mellitus with other specified complication, unspecified whether intermediate insulin use ([facility]) Cerebrovascular accident (CVA), unspecified mechanism ([facility]) Migraine without aura and without status migrainosus, not intractable YANICK (acute kidney injury) ([facility]) Right shoulder pain, unspecified chronicity documented in this encounter Additional Health Concerns Assessment Noted Time PHQ-9 Depression Total Score: 17 024 2:44 PM EST documented as of this encounter Care Teams Tile And Marble Setter Relationship Specialty Start Date End Date Sheree Strong NP [address] [place] [address] PCP - General Family Medicine 09/06/24 documented as of this encounter
--- OUTSIDE RECORDS SUMMARY | 2025-01-10 12:26 | XMS_ITS | Clinical Summary ---
Demographics Address [address] [place] [address] Work Phone Mobile Phone Email Address Preferred Language en Marital Status Alevism Affiliation Unknown Race Other Race Ethnic Group or Author Organization [employer] Address [address] [place] [address] Care Team Providers Care Services Host Name Role Phone Tae Sheree HUSAIN Primary Care Provider [phone] Allergies Active Allergy Reactions Criticality Noted Date Comments Iodinated Contrast Media Low 09/03/2022 Other reaction(s): vomit, dizziness, bm incontinence. No anaphylaxis. Medications Nitrostat 0.[address] [...] 90 tablet 3 4 05/15/20 25 Active budesonide-formo terol (Symbicort) 160-4.5 MCG/ACT inhalerIndicatio ns:Chronic obstructive pulmonary disease, unspecified COPD type (CMS/HCC) INHALE 2 PUFFS BY MOUTH TWICE DAILY, RINSE MOUTH AFTER USING. 10.2 g 2 4 Active Incruse Ellipta 62.5 MCG/ACT aerosol powderIndication s:Chronic obstructive pulmonary disease, unspecified COPD type (CMS/HCC) INHALE 1 PUFF BY MOUTH EVERY DAY AT THE SAME TIME 30 each 2 4 Active Ferrous Sulfate (iron) 325 (65 Fe) MG tabletIndication s:Iron deficiency anemia, unspecified iron deficiency anemia type TAKE 1 TABLET BY MOUTH EVERY DAY WITH vitamin c 90 tablet 1 5 Active gabapentin (Neurontin) 400 MG capsule Take 1 capsule (400 mg) by mouth every 8 (eight) hours. 90 capsule 2 5 03/06/20 25 Active clopidogrel (Plavix) 75 MG tabletIndication s:Arterioscleros is of coronary artery Take 1 tablet (75 mg) by mouth Once per day. 90 tablet 5 Active traZODone (Desyrel) 150 MG tabletIndication s:Insomnia, unspecified type Take 1 tablet (150 mg) by mouth at bedtime. 30 tablet 2 5 Active pantoprazole (ProtoNix) 40 MG EC tabletIndication s:Gastro-esophag eal reflux disease without esophagitis Take 1 tablet (40 mg) by mouth before breakfast. 90 tablet 1 5 Active atorvastatin (Lipitor) 40 MG tabletIndication s:Arterioscleros is of coronary artery Take 1 tablet (40 mg) by mouth Once per day. 90 tablet 1 5 Active Aspirin Low Dose 81 MG chewable tablet Chew 1 tablet (81 mg) Once per day. 90 tablet 2 5 Active DULoxetine (Cymbalta) [address] capsuleIndicatio ns:Fibromyalgia Take 1 capsule (60 mg) by mouth Once per day. 30 capsule 2 5 Active acetaminophen (Tylenol Extra Strength) 500 MG tablet Take 1 tablet (500 mg) by mouth every 8 (eight) hours if needed for moderate pain. 90 tablet 2 5 02/06/20 25 Active carvedilol (Coreg) 12.5 MG tablet Take 1 tablet (12.5 mg) by mouth with breakfast and with evening meal. 60 tablet 11 5 01/07/20 26 Active ondansetron (Zofran) 4 MG tablet Take 1 tablet (4 mg) by mouth every 8 (eight) hours if needed for nausea for up to 7 days. 20 tablet 5 01/14/20 25 Active Active Problems Problem Noted Date Diagnosed Date Migraine without aura and wi thout status migrainosus, not intractable 01/06/2025 Routine cervical smear 11/10/2024 Urinary incontinence 11/10/2024 [...] Diabetes 10/25/2024 CVA (cerebral vascular accident) 10/25/2024 Overview (01/06/2025): [facility] (10/19/24 - 10/25/24) Patient presented to the ED due to chest pain radiating to the left arm. While in the ED, patient developed left-sided numbness/tingling and left facial droop. Stroke alert was activated. Imaging showed chronic left vertebral occlusion, which was treated with tenecteplase Other chronic pain 09/11/2024 Assessment & Plan (09/11/2024 4:04 PM EST): Pt reports pain was treated in [place], once established with rheumatology and disease flares managed (not currently) will address adjunctive pain measure Pt in agreement with this plan Health care maintenance 09/11/2024 Assessment & Plan (09/11/2024 4:02 PM EST): Referrals to eye care, dental Mammogram ordered Former heavy tobacco smoker 05/20/2024 Overview (05/20/2024): Smoked from [id number], 1-1.5 PPD, 41-61.5 PYH Lupus erythematosus 03/15/2024 [...] cath 03/2020: Patent ALMENDAREZ-LAD, SVG-OM, SVG-PDA. Severe [place] vessel CAD. Lexiscan 06/2021: Anterior ischemia. Cardiac [...] artery 06/24/2022 Overview (05/20/2024): S/p CABG x3 2018 Coronary arteriosclerosis in [place] artery 06/24 Overview (11/01/2024): I25.10: Atherosclerotic heart disease of [place] coronary artery without angina pectoris Atherosclerosis of [...] Problem Code: I51.9; Problem Code Type: ICD-10; Resolved Problems Problem Noted Date Diagnosed Date Resolved Date Stroke 10/25/2024 01/06/2025 Encounters Date Type Department Care Team Description 01/06/2025 10:30 AM EDT Office Visit [facility] [address] [place] [phone] Name, MD Dante Essential hypertension (Primary Dx); Type 2 diabetes mellitus with other specified complication, unspecified whether intermediate insulin use (CMS/[facility]); Cerebrovascular accident (CVA), unspecified mechanism (CMS/[facility]); Migraine without aura and without status migrainosus, not intractable; YANICK (acute kidney injury) (CMS/HCC); Right shoulder pain, unspecified chronicity 01/06/2025 Travel 01/05/2025 Telephone [facility] [address] [place] [address] Mika Figueroa MA chart prep 12/30/2024 Population Health Risk Score Community [facility] ([facility] Department [address] [place] [phone] Provider, Population Health Generic 12/28/2024 Telephone [facility] [address] [place] [address] Sheree Strong NP Durable Medical Equipment (Pull-ups) 12/22/[address] [address] Alma Kumar MD No Show 12/21/[address] [address] Sheree Strong NP Chart Prep 12/06/[address] [address] Sheree Strong NP No Show 11/21/[address] [address] Cathy Lord RN 11/17/[address] [address] Sheree Strong NP No Show 11/13/2024 Refill [facility] [address] [place] [phone] Lucio Good ANP Arteriosclerosis of coronary artery; Iron deficiency anemia, unspecified iron deficiency anemia type 11/09/2024 9:15 AM EST Procedure Visit [address] [address] Dori Rhodes FNP Routine cervical smear (Primary Dx); Urinary incontinence, unspecified type; Prediabetes; Abnormal breast exam; Normal pelvic exam; Menopausal disorder 11/09/2024 Travel 11/01/[address] [address] Zakia Connolly MA Chart Prep 11/01/2024 Patient Outreach [address] [address] Sheree Strong NP Transition Of Care (Tcm) (HDF scheduled) 10/31/2024 Travel 10/26/[address] [address] Zakia Connolly MA Chart Prep 10/26/[address] [address] Cathy Lord, RN from Last 3 Months Immunizations Name Administration [...] adsorbed 04/24/2006 Td (adult), unspecified 04/24/2006 Tdap 01/06/2025,01/10/2013 Family History Medical History Relation Name Comments [...] Pests such as bugs, ants, or mice;Lead [place] or Pipes;Inadequate heat 09/06/2024 Food Insecurity Answer [...] Mass Index 20.27 01/06/2025 10:41 AM EDT Plan of Treatment Upcoming Encounters Date Type Department Care Team (Late st Contact Info) Description 01/13/2025 10:00 AM EDT Telemedicine [facility] [address], [place] [phone] 02/16/2025 2:00 PM EDT Office Visit [facility] [address] [place], [place] [phone] Pramod, Martine, OD [address] [place], [place] [phone] 04/07/2025 10:15 AM EDT Office Visit [facility] [address] [place], [place] [phone] Sheree Strong, LISHA [address] [place], [place] [phone] Health Maintenance Due Date Last Done Comments CT Colonography 1960 Colonoscopy 1960 FIT 1960 FOBT 1960 Sigmoidoscopy 1960 Diabetes: Foot Exam 1970 Eye Exam 1970 Pneumococcal Vaccine: 50+ Years (1 of 2 - PCV) 12/24/1979 06/05/1997 Zoster Vaccines (1 of 2) 2010 RSV Patients and Patients Aged 60 years or older (1 - Risk 60-74 years 1-dose series) 2020 COVID-19 Vaccine ( season) 2024 Depression Monitoring (PHQ-9) 03/06/2025 09/06/2024, 09/06/2024 Diabetes: Hemoglobin A1C 07/09/2025 01/06/2025, 08/19 Depression Screening 09/06/2025 09/06/2024, 09/06/20 Lipid Panel 09/06/2025 09/06/2024 SDOH Screening 09/06/2025 09/06/2024 Alcohol/Substance Use Screening 11/09/2025 11/09/2024 Diabetes: Urine Protein Screening 11/11/2025 11/11/2024, 09/06/2024, 11/16/2023 Tobacco Screening 01/06/2026 01/06/2025 Colorectal Cancer Screening 10/04/2026 FIT DNA/Cologuard 10/04/2026 10/04/2023 Mammogram 01/10/2027 01/10/2025, 12/18, 08/26/2018 Cervical Cancer Screening 11/09/2029 HPV/Cotest 11/09/2029 11/09/2024, 09/15/2017 Pap Smear 11/09/2029 11/09/2024 DTaP/Tdap/Td Vaccines (3 - Td or Tdap) 01/06/2035 01/06/2025, 01/10/2013, 04/24/2006, Additional history exists Hepatitis A Vaccines Aged Out 04/17/2015, 10/05/20 [...] Procedure Name Priority Date/Time Associated Diagnosis Comments BI US BREAST LIMITED BILATERAL Urgent 01/10/2025 11:06 AM EDT BI MAMMOGRAM DIAGNOSTIC TOMOSYNTHESIS BILATERAL Urgent 01/10/2025 11:00 AM EDT Subareolar mass of right breast XR SHOULDER 2+ VIEWS RIGHT Routine 01/06/2025 11:31 AM EDT Right shoulder pain, unspecified chronicity BASIC METABOLIC PANEL Routine 01/06/2025 11:27 AM EDT YANICK (acute kidney injury) (CMS/HCC) POCT GLYCATED HEMOGLOBIN, TOTAL Routine 01/06/2025 10:48 AM EDT Type 2 diabetes mellitus with other specified complication, unspecified whether intermediate insulin use (CMS/HCC) POCT GLUCOSE Routine 01/06/2025 10:48 AM EDT Type 2 diabetes mellitus with other specified complication, 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 (CMS/HCC) LUPUS ANTICOAGULANT EVALUATION WITH REFLEX Routine 11/11/2024 11:56 AM EST Subareolar mass of right breast LORI SCREEN, IFA, W/REFL TITER AND PATTERN Routine 11/11/2024 11:56 AM EST Subareolar mass of right breast CARDIOLIPIN AB (IGA,IGG,IGM) Routine 11/11/2024 11:56 AM EST Subareolar mass of right breast DIRECT ANTIGLOBULIN TEST (DELBERT) Routine 11/11/2024 11:56 [...] 11:30 AM EST Urinary incontinence, unspecified type PAP SMEAR Routine 11/09/2024 11:25 AM EST Routine cervical smear HPV DNA, LOW/HIGH RISK Routine 11:25 AM EST Subareolar mass of right breast POCT URINALYSIS DIPSTICK Routine 11/09/2024 11:14 AM EST Urinary incontinence, unspecified type POCT GLUCOSE Routine 11/09/2024 9:32 AM EST Prediabetes HEPATITIS C AB W/REFL TO HCV RNA, QN, PCR Routine 09/06/2024 2:49 PM EST Health care maintenance HIV 1/2 ANTIGEN/ANTIBODY, FOURTH GENERATION W/RFL Routine 09/06/2024 2:49 PM EST Health care maintenance LIPID PANEL, STANDARD Routine 09/06/2024 2:49 PM EST Health care maintenance from Last 3 Months or Most Recently Relevant to Health Maintenance Results * BI US Breast Limited Bilateral (01/10/2025 11:06 AM EDT) Anatomical Region Laterality Modality Breast Bilateral Ultrasound 01/10/2025 11:0 6 AM EDT Narrative 01/10/2025 11:45 AM EDT ? [facility] ? [address] ?[place] [address] ? Ultrasound Report ? Signed ? Patient: Bill,Estephania ?MR#: [id number] ?? [id number] ? : 1960 ?Acct:[id number] ? Age/Sex: 64 / F ?ADM Date: 01/10/25 ? Loc: HO.MAMMO ? Attending Dr: Oksana Munson CNM ? Ordering Physician: OKSANA MUNSON CNM ?? Date of Service: 01/10/25 ?? Procedure(s): US breast BI limited mamm only ?? Accession Number(s): [id number] ? cc: OKSANA MUNSON CNM; LUCIO GOOD NP ? EXAMINATION: ?? MM DIAGNOSTIC DIGITAL BREAST TOMOSYNTHESIS, BILATERAL ?? Collateral Limited ultrasound. ? CLINICAL INFORMATION: ? Bilateral breast pain. Left palpable lump. ?? History of right breast surgery near the nipple. ? COMPARISON: ?? Mammography: Comparison is made with relevant prior exams. ? TECHNIQUE: ?? Digital breast mammography with tomosynthesis is performed in both the ?? craniocaudal and mediolateral oblique views along with computer-aided ?? detection (CAD). ? FINDINGS: ?? There are scattered areas of fibroglandular density (ACR BI-RADS breast ?? composition Category b). ?? Left: ?? Palpable BB marker in the upper outer breast at site of palpable lump ?? without underlying abnormality. ?? Lutts marker in the upper inner breast at site of pain without ?? underlying abnormality. ?? No suspicious masses calcifications or other abnormal findings. ? Targeted color Doppler ultrasound scanning in the left breast upper ?? outer quadrant upper inner quadrant areas of pain and palpable lump ?? demonstrates normal fibronodular breast tissue. There is no sonographic ?? abnormality. ? Right: ?? Triangular marker in the upper outer breast at site of pain without ?? underlying abnormality. ?? Post surgical changes in the retroareolar region. ? Targeted color Doppler ultrasound scanning from 10-2 o'clock ?? demonstrates normal fibroglandular breast tissue. There is no ?? sonographic abnormality. ? Results are provided to the patient at time of visit by the ?? technologist. ? US/US breast BI limited mamm only ?? IMPRESSION: ?? No mammographic or sonographic abnormality to account for the sites of ?? bilateral breast pain and left palpable lump. Recommend clinical ?? evaluation and follow-up. Recommend routine annual screening. ? ASSESSMENT: ? BI-RADS BI-RADS 2 - Benign Findings ? RECOMMENDATION: ?? 1 year F/U ? This patient's information was entered into a reminder system with a ?? target due date for their next mammogram. ? Electronically signed by: ??Emperatriz Dey DO ??01/10/2025 11:43 AM EDT ? Dictated By: ?Emperatriz Dey DO ? Signed By: ?<Electronically signed by Emperatriz Dey, DO in OV> ? 01/10/25 1143 ? DD/ 1106 ? TD/TT: 01/10/25 1136 ? Director Pediatric: ? Procedure Note Jules Alvarado - 01/10/2025 [facility] [address] [place] [address] [place]. [place], [place] [address] Ultrasound Report Signed Patient: Estephania BillMR#: [id number] : 1Acct:[id number] Age/Sex: 64 / FADM Date: 01/10/25 Loc: HO.MAMMO Attending Dr: Oksana Munson CNM Ordering Physician: OKSANA MUNSON CNM Date of Service: 01/10/25 Procedure(s): US breast BI limited mamm only Accession Number(s): [id number] cc: OKSANA MUNSON CNM; LUCIO GOOD NP EXAMINATION: MM DIAGNOSTIC DIGITAL BREAST TOMOSYNTHESIS, BILATERAL Collateral Limited ultrasound. CLINICAL INFORMATION: Bilateral breast pain. Left palpable lump. History of right breast surgery near the nipple. COMPARISON: Mammography: Comparison is made with relevant prior exams. TECHNIQUE: Digital breast mammography with tomosynthesis is performed in both the craniocaudal and mediolateral oblique views along with computer-aided detection (CAD). FINDINGS: There are scattered areas of fibroglandular density (ACR BI-RADS breast composition Category b). Left: Palpable BB marker in the upper outer breast at site of palpable lump without underlying abnormality. Lutts marker in the upper inner breast at site of pain without underlying abnormality. No suspicious masses calcifications or other abnormal findings. Targeted color Doppler ultrasound scanning in the left breast upper outer quadrant upper inner quadrant areas of pain and palpable lump demonstrates normal fibronodular breast tissue. There is no sonographic abnormality. Right: Triangular marker in the upper outer breast at site of pain without underlying abnormality. Post surgical changes in the retroareolar region. Targeted color Doppler ultrasound scanning from 10-2 o'clock demonstrates normal fibroglandular breast tissue. There is no sonographic abnormality. Results are provided to the patient at time of visit by the technologist. US/US breast BI limited mamm only IMPRESSION: No mammographic or sonographic abnormality to account for the sites of bilateral breast pain and left palpable lump. Recommend clinical evaluation and follow-up. Recommend routine annual screening. ASSESSMENT: BI-RADS BI-RADS 2 - Benign Findings RECOMMENDATION: 1 year F/U This patient's information was entered into a reminder system with a target due date for their next mammogram. Electronically signed by: Emperatriz Dey DO 01/10/2025 11:43 AM EDT Dictated By: Emperatriz Dey DO Signed By: <Electronically signed by Emperatriz Dey DO in OV> 01/10/25 1143 DD/ 1106 TD/TT: 01/10/25 1136 Director Pediatric: us Oksana Munson CNM IMG US PROCEDURES Edited Result - Final * BI Mammogram Diagnostic Tomosynthesis Bilateral (01/10/2025 11:00 AM EDT) Anatomical Region Laterality Modality Breast Bilateral Mammography 01/10/2025 11:0 0 AM EDT Narrative 01/10/2025 11:45 AM EDT ? [facility] ? [address] ?[place], [place] [address] ?[phone] ? Mammography Report ? Signed ? Patient: Fly,Estephania ?MR#: [id number] ?? 771 ? : 1960 ?Acct:[id number] ? Age/Sex: 64 / F ?ADM Date: 01/10/25 ? Loc: HO.MAMMO ? Attending Dr: Oksana Munson CNM ? Ordering Physician: OKSANA MUNSON CNM ?Results: 2 ?? Benign Findings ? Date of Service: 01/10/25 ?Follow Up: 1 Year From Orig ?? inal Mammogram ? Procedure(s): MM tomosynthesis diagnostic BI ?? Accession Number(s): [id number] ? cc: OKSANA MUNSON CNM; LUCIO GOOD NP ? EXAMINATION: ?? MM DIAGNOSTIC DIGITAL BREAST TOMOSYNTHESIS, BILATERAL ?? Collateral Limited ultrasound. ? CLINICAL INFORMATION: ? Bilateral breast pain. Left palpable lump. ?? History of right breast surgery near the nipple. ? COMPARISON: ?? Mammography: Comparison is made with relevant prior exams. ? TECHNIQUE: ?? Digital breast mammography with tomosynthesis is performed in both the ?? craniocaudal and mediolateral oblique views along with computer-aided ?? detection (CAD). ? FINDINGS: ?? There are scattered areas of fibroglandular density (ACR BI-RADS breast ?? composition Category b). ?? Left: ?? Palpable BB marker in the upper outer breast at site of palpable lump ?? without underlying abnormality. ?? Lutts marker in the upper inner breast at site of pain without ?? underlying abnormality. ?? No suspicious masses calcifications or other abnormal findings. ? Targeted color Doppler ultrasound scanning in the left breast upper ?? outer quadrant upper inner quadrant areas of pain and palpable lump ?? demonstrates normal fibronodular breast tissue. There is no sonographic ?? abnormality. ? Right: ?? Triangular marker in the upper outer breast at site of pain without ?? underlying abnormality. ?? Post surgical changes in the retroareolar region. ? Targeted color Doppler ultrasound scanning from 10-2 o'clock ?? demonstrates normal fibroglandular breast tissue. There is no ?? sonographic abnormality. ? Results are provided to the patient at time of visit by the ?? technologist. ? MM/MM tomosynthesis diagnostic BI ?? IMPRESSION: ?? No mammographic or sonographic abnormality to account for the sites of ?? bilateral breast pain and left palpable lump. Recommend clinical ?? evaluation and follow-up. Recommend routine annual screening. ? ASSESSMENT: ? BI-RADS BI-RADS 2 - Benign Findings ? RECOMMENDATION: ?? 1 year F/U ? This patient's information was entered into a reminder system with a ?? target due date for their next mammogram. ? Electronically signed by: ??Emperatriz Dey DO ??01/10/2025 11:43 AM EDT ?? RP ? Dictated By: ?Emperatriz Dey DO ? Signed By: ?<Electronically signed by Emperatriz Dey, DO in OV> ? 01/10/25 1143 ? DD/ 1100 ? TD/TT: 01/10/25 1110 ? Director Pediatric: ? Procedure Note Donotuseinterpreter, Image - 01/10/2025 [place] [facility] [address] [place] [address] Mammography Report Signed Patient: See Bill#: [id number] 771 : 1960cct:[id number] Age/Sex: 64 / FADM Date: 01/10/25 Loc: HO.MAMMO Attending Dr: Oksana Munson CNM Ordering Physician: OKSANA MUNSONesults: 2 Benign Findings Date of Service: 01/10/25Follow Up: 1 Year From Orig ina Mammogram Procedure(s): MM tomosynthesis diagnostic BI Accession Number(s): [id number] cc: OKSANA MUNSON CNM; LUCIO GOOD NP EXAMINATION: MM DIAGNOSTIC DIGITAL BREAST TOMOSYNTHESIS, BILATERAL Collateral Limited ultrasound. CLINICAL INFORMATION: Bilateral breast pain. Left palpable lump. History of right breast surgery near the nipple. COMPARISON: Mammography: Comparison is made with relevant prior exams. TECHNIQUE: Digital breast mammography with tomosynthesis is performed in both the craniocaudal and mediolateral oblique views along with computer-aided detection (CAD). FINDINGS: There are scattered areas of fibroglandular density (ACR BI-RADS breast composition Category b). Left: Palpable BB marker in the upper outer breast at site of palpable lump without underlying abnormality. Lutts marker in the upper inner breast at site of pain without underlying abnormality. No suspicious masses calcifications or other abnormal findings. Targeted color Doppler ultrasound scanning in the left breast upper outer quadrant upper inner quadrant areas of pain and palpable lump demonstrates normal fibronodular breast tissue. There is no sonographic abnormality. Right: Triangular marker in the upper outer breast at site of pain without underlying abnormality. Post surgical changes in the retroareolar region. Targeted color Doppler ultrasound scanning from 10-2 o'clock demonstrates normal fibroglandular breast tissue. There is no sonographic abnormality. Results are provided to the patient at time of visit by the technologist. MM/MM tomosynthesis diagnostic BI IMPRESSION: No mammographic or sonographic abnormality to account for the sites of bilateral breast pain and left palpable lump. Recommend clinical evaluation and follow-up. Recommend routine annual screening. ASSESSMENT: BI-RADS BI-RADS 2 - Benign Findings RECOMMENDATION: 1 year F/U This patient's information was entered into a reminder system with a target due date for their next mammogram. Electronically signed by: Emperatriz Dey DO 01/10/2025 11:43 AM EDT Dictated By: Emperatriz Dey DO Signed By: <Electronically signed by Emperatriz Dey DO in OV> 01/10/25 1143 DD/ 1100 TD/TT: 01/10/25 1110 Director Pediatric: Oksana VUM IMG BI PROCEDURES Edited Result - Final * XR Shoulder 2+ Views Right (01/06/2025 11:31 AM EDT) Anatomical Region Laterality Modality Upper Extremities, Shoulder Right Radi ographic Imaging 01/06/2025 11:3 1 AM EDT Narrative 01/06/2025 1:12 PM EDT ? [facility] ?[address] ?[place] [address] ?XRay Report ? Signed ? Patient: Bill,Estephania ?MR#: [id number] ?? 771 ? : 1960 ?Acct:[id number] ? Age/Sex: 64 / F ?ADM Date: 01/06/25 ? Loc: HO.HHCL ? Attending Dr: Dante Chamberlain MD ? Ordering Physician: Dante Chamberlain MD ?? Date of Service: 01/06/25 ?? Procedure(s): XR shoulder RT min 2V ?? Accession Number(s): [id number] ? cc: Name,Dante DIMAS ? EXAMINATION: ?? XR SHOULDER, RIGHT ? [...] wires no fully included ?? in the iqfez-be-qhlp. ? XR/XR shoulder RT min 2V ?? IMPRESSION: ?? No acute fracture or dislocation. Stable. ? Electronically signed by: ??Romel Iyer MD ??01/06/2025 01:09 PM ?? EDT RP ? Dictated By: ?Romel Schofield MD ? Signed By: ?<Electronically signed by Romel Tian MD in OV> ? 01/06/25 1309 ? DD/ 1131 ? TD/TT: 01/06/25 1200 ? Director Pediatric: ? Procedure Note Jenny, Image - 01/06/2025 [place] [address] XRay Report Signed Patient: Estephania BillMR#: [id number] 771 : 1960cct:[id number] Age/Sex: 64 / FADM Date: 01/06/25 Loc: HO.CL Attending Dr: Dante Chamberlain MD Ordering Physician: Dante Chamberlain MD Date of Service: 01/06/25 Procedure(s): XR shoulder RT min 2V Accession Number(s): [id number] cc: Dante Chamberlain MD EXAMINATION: XR SHOULDER, RIGHT CLINICAL INFORMATION: Chronic right shoulder pain with decreased ROM COMPARISON: November 14, 2016. TECHNIQUE: AP external rotation, Grashey, scapular Y, and axillary views of the right shoulder. FINDINGS: No acute cortical disruption or malalignment. No lytic or blastic lesions. No gross degenerative changes. Sternal wires no fully included in the jbeey-[id number]-jwfu. XR/XR shoulder RT min 2V IMPRESSION: No acute fracture or dislocation. Stable. Electronically signed by: Romel Iyer MD 01/06/2025 01:09 PM EDT Dictated By: Romel Schofield MD Signed By: <Electronically signed by Romel Tian MDin OV> 01/06/25 1309 DD/ 1131 TD/TT: 01/06/25 1200 Director Pediatric: Result [facility] Dante Chamberlain MD IMG XR PROCEDURES Final Result * (ABNORMAL) Basic Metabolic Panel (01/06/2025 11:27 AM EDT) Sodium 137 135 - 145 mmol/L [facility] LABS Potassium 4.1 3.3 - 5.1 mmol/L [facility] Chloride 105 96 - 108 mmol/L [facility] Carbon Dioxide 26 22 - 29 mmol/L [facility] Anion Gap 10(L) 12 - 20 [facility] Urea Nitrogen (BUN) 13 9 - 16 mg/dL [facility] Creatinine, Serum 0.87 0.5 - 1.4 mg/dL [facility] Estimated Glomerular Filt Rate >60 [facility] Comment:Chronic Kidney Disea se: Estimated GFR < 60 mL/min/1.81g6Uvxihh Kidney Disease: Estimated GFR < 15 mL/min/1.73m2 Glucose 81 60 - 115 mg/dL [facility] Calcium 9.9 8.4 - 10.2 mg/dL [facility] Blood Venous blood specimen / Unknown 01/06/2025 11:27 AM EDT 01/06/2025 1:22 PM EDT Result Josselin Chamberlain MD LAB BLOOD ORDERABLES Final Resul t [facility] [address] [place] [address] [phone] * POCT HGB A1C (01/06/2025 10:48 AM EDT) Hemoglobin A1C 5.9 4.0 - 6.0 % QC Media Lot # [id number] Lot# Expiration Date [id number] Blood 01/06/2025 10:4 8 AM EDT Result [facility] Dante Chamberlain MD POINT OF CARE TEST ENTER/EDIT OR DERABLES Final Result * POCT Glucose (01/06/2025 10:48 AM EDT) Only the most recent of2 resultswithin the time period is included. Pathologist [facility] Glucose Blood, POC 91 60 - 200 mg/dL QC Media Lot # [id number] Lot# Expiration Date [id number] Blood Capillary blood specimen / Unknown 01/06/2025 10:48 AM EDT Dante Name POINT OF CARE TEST ENTER/EDIT OR DERABLES Final Result * Lupus Anticoagulant Evaluation with Reflex (11/11/2024 11:56 AM EST) [facility] Lupus Interpretation see note [facility] Comment:A Lupus Anticoagulan t is not detected.Reference Range: Not DetectedFor additional information, please refer tohttp://education.WeLab/faq/UDR36d6(This link is being provided for informational/educational purposes only.)This interpretation is based on the following testresults. PTT (LAC) Screen 35 <=40 sec [facility] DRVVT Screen 38 <=45 sec [facility] Comment:THIS TEST WAS PERFOR MED AT:[employer]/[facility] [place] [address]AKFNRYBCANDIS MAHAN MD,PHD dRVVT Confirmation [facility] dRVVT 1:1 Mix [facility] DRVVT 1:1 Mix Interpretation [facility] Hexagonal Phase Neutralization [facility] Thrombin Clotting Time [facility] 11/11/2024 11:5 6 AM EST 11/11/2024 11:56 AM EST Generic External Data Provider LAB BLOOD ORDERAB LES Final Result [facility] [address] [place] [address] [phone] * (ABNORMAL) Sed Rate by Modified Westergren (11/11/2024 11:56 AM EST) Erythrocyte Sedimentation Rate 29(H) 0 - 20 MM/HR [facility] Comment:Patients with polycy themia and many hemoglobin abnormalitiesmay have depressed sed rates whereas patients with anemiamay have elevated sed rates. 11/11/2024 11:5 6 AM EST 11/11/2024 11:56 AM EST Generic External Data Provider LAB BLOOD ORDERAB LES Final Result Performing Organization Address [facility] Co de Phone Number [facility] [address] [place] [phone] * (ABNORMAL) Reticulocyte Count (11/11/2024 11:56 AM EST) Pathologist [facility] Reticulocytes Absolute 0.036 0.026 - 0.095 X10*6/uL [facility] Immature Retic Fraction 8.2 3.0 - 15.9 % [facility] Retic HGB Equivalent 25.6(L) 30.0 - 35.0 pg [facility] Reticulocyte Percent 0.8 0.5 - 1.8 % [facility] 11/11/2024 11:5 6 AM EST 11/11/2024 11:56 AM EST Generic External Data Provider LAB BLOOD ORDERAB LES Final Result Performing Organization Address City/[facility]/ZIP Co de Phone Number [facility] [address] [place] [phone] * Direct Antiglobulin Test (DELBERT) (11/11/2024 11:56 AM EST) DELBERT Result Polyspecific NEGATIVE [facility] DELBERT Result Comment TNP [facility] Comment:Test not indicated 11/11/2024 11:5 6 AM EST 11/11/2024 11:56 AM EST us Generic External Data Provider LAB BLOOD ORDERAB LES Final Result Performing Organization Address [facility]/ZIP Co de Phone Number [facility] [address] [place] [phone] * (ABNORMAL) LORI Screen,IFA, with Reflex to Titer and Pattern (11/11/2024 11:56 AM EST) Anti Nuclear Antibody Screen POSITIVE (A) NEGATIVE [facility] Comment:LORI IFA is a first l ine screen for detecting thepresence of up to approximately 150 autoantibodies invarious autoimmune diseases. A positive LORI IFA resultis suggestive of autoimmune disease and reflexes totiter and pattern. Further laboratory testing may beconsidered if clinically indicated.For additional information, please refer tohttp://education.[employer]/faq/NQD330(This link is being provided for informational/educational purposes only.) LORI Titer 1:160(A) titer [facility] Comment:Reference Range <1:4 0 Negative 1:40-1:80 Low Antibody Level >1:80 Elevated Antibody Level LORI Pattern (A) [facility] Comment:Nuclear, Large/Coars e Speckled Abnormal Flag: ACoarse speckled pattern is associated with mixedconnective tissue disease (MCTD), systemic lupuserythematosus (SLE), and systemic sclerosis.AC-5: Large/Coarse SpeckledInternational Consensus on LORI Patterns(https://doi.org/10.1515/hqhs-8065-0663)THIS TEST WAS PERFORMED AT:[employer] [place] [id number] JOYA MD LORI TITER 2 (REF LAB) [facility] LORI Pattern 2 [facility] LORI TITER 3 [facility] LORI PATTERN 3 [facility] 11/11/2024 11:5 6 AM EST 11/11/2024 11:56 AM EST us Generic External Data Provider LAB BLOOD ORDERAB LES Final Result Performing Organization Address City/[facility]/ZIP Co de Phone Number [facility] [address] [place] [phone] * Haptoglobin (11/11/2024 11:56 AM EST) Haptoglobin 185 63 - 273 mg/dL [facility] 11/11/2024 11:5 6 AM EST 11/11/2024 11:56 AM EST Generic External Data Provider LAB BLOOD ORDERAB LES Final Result Performing Organization Address [facility] de Phone Number [facility] [address] [place] [address] [phone] * Protein Creatinine Ratio, Urine (11/11/2024 11:44 AM EST) Creatinine, Urine 101.34 mg/dL [facility] Protein, Total, Random Urine 9 <12 mg/dL [facility] Protein/Creati nine Ratio, Ur 0.09 <0.2 [facility] Comment:The spot urine prote in:creatinine ratio may increase to 0.3during normal . 11/11/2024 11:4 4 AM EST 11/11/2024 12:16 PM EST Generic External Data Provider LAB URINE ORDERAB LES Final Result Performing Organization Address [facility] de Phone Number [facility] [address] [place] [phone] [phone] * (ABNORMAL) Urinalysis Complete (11/11/2024 11:44 AM EST) Color Urine Yellow [facility] Appearance Urine Clear [facility] PH 6.5 5.0 - 9.0 [facility] Glucose Urine UA Negative Negative mg/dL [facility] Urine Blood Negative Negative [facility] Specific [place] - Urine 1.015 1.005 - 1.025 [facility] Urine Protein Negative Neg-Trace mg/dL [facility] Urine Ketones Negative Negative mg/dL [facility] Nitrite Urine Negative Negative [facility] Leukocyte Esterase Urine Trace(A) Negative [facility] RBC Urine 0-2 0 - 2 /HPF [facility] Urine WBC 0-5 0 - 5 /HPF [facility] Urine Squamous Epithelial Cell 6-10 0 - 2 /HPF [facility] Urine Bacteria Trace None Seen [facility] Hyaline Casts, Urine 0-2 0 - 2 /LPF [facility] 11/11/2024 11:4 4 AM EST 11/11/2024 12:16 PM EST us Generic External Data Provider LAB URINE ORDERAB LES Final Result Performing Organization Address City/[facility]/ZIP Co de Phone Number [facility] [address] [place] [address] [phone] * Culture, Urine, Routine (11/09/2024 11:30 AM EST) Urine Urine specimen obtained by clean catch procedure / Unknown 11/09/2024 11:30 AM EST 11/09/2024 1:08 PM EST Comment:UACC Narrative [facility] - 11/10/2024 10:44 AM EST Urine Culture No growth. Specimen Source: Urine clean catch us Dori ALAS LAB MICROBIOLOGY - GENERAL ORD ERABLES Final Result [facility] [address] [place] [address] [phone] * HPV DNA, Low/High Risk (11/09/2024 11:25 AM EST) HPV High Risk Negative Negative [facility] HPV Genotype 16 Negative Negative [facility] HPV Genotype 18 Negative Negative [facility] Comment:HPV testing performe d at [facility] (CLIA#[id number]), [address] [place] [address].Testing for HPV was performed using the Julio BIANCA 6800system. The presence of HPV in the female genital tract isassociated with a number of diseases, including cervicalcarcinoma. The HPV DNA high risk pool tests for HPV 31, 33,35, 39, 45, 51, 52, 56, 58, 59, 66 and 68. The testing forHPV 16 and 18 genotypes has also been performed. A positiveresult indicates detection of nucleic acid sequences fromone or more subtypes, whereas a negative result indicatessuch sequences were not detected. 11/09/2024 11:2 5 AM EST 11/09/2024 2:00 PM EST us Dori ALAS LAB BLOOD ORDERABLES Final Res ult Performing Organization Address City/State/[facility] Co de Phone Number [facility] [address] [place] [phone] * Pap Smear (11/09/2024 11:25 AM EST) Swab Cervix uteri structure / Unknown 11/09/2024 11:25 AM EST 11/09/2024 2:00 PM EST Narrative [facility] - 11/15/2024 10:17 AM EST ----- ------- Name: Estephania Bill ?Age/Sex: 63/F ? : 1960 Unit#: [id number] ?? Attend Dori Andino ?Re11/09/24 ?Status: DEP REF ? Location: HO.LNP ?Disch: ? ----- ------- SPEC : [id number] ? RECD: 11/09/24-1400 ? STATUS: ??SOUT ? REQ NUM: [id number] ? NICKI: 11/09/241123 ? SUBM DR: Dori Rhodes STRINGER MACHINE TENDER ? ENTERED: ??11/09/245842 ?SP TYPE: Pap Smr ?OTHR : ? ORDERED: ??Pap Smear ? Interpretation ?? Satisfactory for evaluation. ?? Negative for intraepithelial lesion or malignancy. ? HPV High Risk: ??Negative ? HPV Genotyping 16: ??Negative ?? HPV Genotyping 18: ??Negative ?Clinical Information LMP: Unknown date Previous PAP test: Unknown date/findings ? Material Received ?? ThinPrep-Cervical ----- ------- Signed (signature on file) JONATHAN Wheatley (ASCP) 11/15/24 1017 ? ----- ------- ? END OF REPORT ? Dori Rhodes [facility] CYTOLOGY ORDERABLES Final Result [facility] [address] [place], [place] [phone] * POCT Urinalysis (11/09/2024 11:14 AM EST) [...] Urine 11/09/2024 11:1 4 AM EST Dori Rhodes [facility] POINT OF CARE TEST ENTER/EDIT ORDERABLES Final Result * (ABNORMAL) Hepatitis C Antibody with Reflex to HCV, RNA, Quantitative, Real- Time PCR (09/06/2024 2:49 PM EST) Hepatitis C Antibody Reactive( A) Nonreactive [facility] Comment:Presumptive evidence of antibodies to HCV. Blood Venous blood specimen / Unknown 09/06/2024 2:49 PM EST 09/06/2024 4:07 PM EST Sheree Strong NP LAB BLOOD ORDERABLES Final Resul t Performing Organization Address [facility] Co de Phone Number [facility] [address] [place] [phone] * HIV-1/2 Antigen and Antibodies, Fourth Generation, with Reflexes (09/06/2024 2:49 PM EST) HIV AB/AG Nonreactive Nonreactive [facility] Comment:HIV-1 p24 Ag and/or HIV-1/HIV-2 Ab not detected.A test result that is nonreactive does not exclude thepossibility of exposure to or infection with HIV-1 and/orHIV-2. Nonreactive results in this assay for individualswith prior exposure to HIV-1 and/or HIV-2 may be due toantigen and antibody levels that are below the limit ofdetection of this assay.The [employer] HIV Ag/Ab Combo assay result andsupplemental assay results should be interpreted inconjunction with the patient's clinical presentation,history and other laboratory results. If the results areinconsistent with clinical evidence, additional testing issuggested to confirm the result. Blood Venous blood specimen / Unknown 09/06/2024 2:49 PM EST 09/06/2024 4:07 PM EST us Sheree Strong NP LAB BLOOD ORDERABLES Final Resul t Performing Organization Address City/[facility]/ZIP Co de Phone Number [facility] [address] [place] [phone] [phone] * (ABNORMAL) Lipid Panel, Standard (09/06/2024 2:49 PM EST) Triglycerides 78 <150 mg/dL [facility] Comment:Desirable Triglyceri de: less than 150 mg/dLBorderline High Triglyceride 150-199 mg/dLHigh Triglyceride: 200-499 mg/dLVery High Triglyceride: greater than or equal to 5OO mg/dL Cholesterol 96 <200 mg/dL [facility] Comment:Desirable Cholestero l: less than 200 mg/dLBorderline High Cholesterol: 200-239 mg/dLHigh Cholesterol: greater than 239 mg/dL LDL Cholesterol Calculated 41 <100 mg/dL [facility] Comment:Desirable LDL: less than 100 mg/dLNear Optimal/Above Optimal LDL: 110- 129 mg/dLBorderline High LDL: 130-159 mg/dLHigh LDL: 160-189 mg/dLVery High LDL: greater than or equal to 190 mg/dL HDL Cholesterol 40(L) >40 mg/dL [facility] Comment:Desirable HDL: great er than 40 mg/dL Note: This HDL assay may give artificially low results in patients with liver disease. Blood Venous blood specimen / Unknown 09/06/2024 2:49 PM EST 09/06/2024 4:07 PM EST us Sheree Strong NP LAB BLOOD ORDERABLES Final Resul t [facility] [address] [place] [phone] from Last 3 Months or Most Recently Relevant to Health Maintenance Insurance * Guarantor: Estephania Bill Account Type Relation to Patient Date of Phone Billing Address Personal/Family Self 1960 [address] [place] [address] [facility] STANDARD * Guarantor: Estephania Bill Account Type Relation to Patient Date of Phone Billing Address Personal/Family Self 1960 [address] [place] [address] * Guarantor: Estephania Bill Account Type Relation to Patient Date of Phone Billing Address Personal/Family Self 1960 [address] [place] [address] * Guarantor: Estephania Bill Account Type Relation to Patient Date of Phone Billing Address Personal/Family Self 1960 [address] [place] [address] Care Teams Services Host Relationship Specialty Start Date End Date Sheree Strong NP [address] [place] [phone] PCP - General Family Medicine 09/06/24
--- OUTSIDE RECORDS SUMMARY | 2025-01-10 12:26 | XMS_ITS | Encounter Summary ---
Demographics Address [address] [place] [address] Work Phone Mobile Phone Email Address Preferred Language en Marital Status Worship Affiliation Unknown Race Other Race Ethnic Group or Author Organization [employer] Address [address] [facility] [address] [place] [address] Care Team Providers Care Correctional Food Service Supervisor Name Role Phone Tae Sheree LISHA Primary Care Provider [phone] Encounter Details Date Type Department Care Team (Latest Contact Info) Description 01/06/2025 Travel Social History Tobacco Use Types Packs/Day [...] Pests such as bugs, ants, or mice;Lead [place] or Pipes;Inadequate heat 09/06/2024 Food Insecurity Answer [...] Info) Description 01/13/2025 10:00 AM EDT Telemedicine [facility] [address] [place] [address] 02/16/2025 2:00 PM EDT Office Visit [facility] OPTOMETRY [address] [place] [address] PramodMartine peterson, OD [address] [place] [address] 04/07/2025 10:15 AM EDT Office Visit [facility] [address] [place] [address] Sheree Strong NP [address] [place] [address] documented as of this encounter Visit Diagnoses Not on filedocumented in this encounter Additional Health Concerns Assessment Noted Time PHQ-9 Depression Total Score: 17 024 2:44 PM EST documented as of this encounter Care Teams Correctional Food Service Supervisor Relationship Specialty Start Date End Date Sheree Strong NP [address] [place] [address] PCP - General Family Medicine 09/06/24 documented as of this encounter
--- OUTSIDE RECORDS SUMMARY | 2025-01-10 12:27 | XMS_ITS | Encounter Summary ---
Demographics Address [address] [place] [address] Work Phone Mobile Phone Email Address Preferred Language en Marital Status Cheondoism Affiliation Unknown Race Other Race Ethnic Group or Author Organization [facility] Address [address] [facility] 7[address] [place] [address] Care Team Providers Care Security Systems Sales Representative Name Role Phone Sheree Strong NP Primary Care Provider Reason for Visit * Reason Onset Date Comments Chart Prep 12/21/2024 Encounter Details Date Type Department Care Team ([facility] st Contact Info) Description 12/21/2024 Telephone [facility]INE [address] [place], [place] [phone] Sheree Strong NP [address] [place] [address] Chart Prep Social History Tobacco Use Types [...] Pests such as bugs, ants, or mice;Lead [place] or Pipes;Inadequate heat 09/06/2024 Food Insecurity Answer [...] encounter Miscellaneous Notes * Telephone Encounter - Mira Hollins [place] - 12/21/2024 1:29 PM EST Chart Prep Labs: done Images: done Vaccines due: yes Referrals: HFU Screenings: mammogram , eye exam , Foot Exam Overdue care gaps: A1C, Glucose HDF NOTES IN CHART documented in this encounter Plan of Treatment Upcoming Encounters Date Type Department Care Team (Late st Contact Info) Description 01/13/2025 10:00 AM EDT Telemedicine [facility] MEDICINE [address] [place] [address] 02/16/2025 2:00 PM EDT Office Visit [facility] OPTOMETRY [address] [place] [address] Martine Benavidez, OD [address] [place] [address] 04/07/2025 10:15 AM EDT Office Visit [facility] MEDICINE [address] [place] [address] Sheree Strong, LISHA [address] [place] [address] documented as of this encounter Visit Diagnoses Not on filedocumented in this encounter Additional Health Concerns Assessment Noted Time PHQ-9 Depression Total Score: 17 024 2:44 PM EST documented as of this encounter Care Teams Security Systems Sales Representative Relationship Specialty Start Date End Date Sheree Strong NP [address] [place] [address] PCP - General Family Medicine 09/06/24 documented as of this encounter
--- OUTSIDE RECORDS SUMMARY | 2025-01-10 12:27 | XMS_ITS | Encounter Summary ---
Demographics Address [address] [place] [address] Work Phone Mobile Phone Email Address Preferred Language en Marital Status Mosque Affiliation Unknown Race Other Race Ethnic Group or Author Organization [employer] Address [address] [facility] [address] [place] [address] Care Team Providers Care Rn Interventional Name Role Phone Sheree Strong NP Primary Care Provider [phone] Reason for Visit * Reason Onset Date Comments Durable Medical Equipment 12/28/2024 Pull-u ps Encounter Details Date Type Department Care Team ([facility] st Contact Info) Description 12/28/2024 Telephone [facility] MEDICINE [address] [place], [place] [phone] Sheree Strong NP [address] [place] [address] Durable Medical Equipment (Pull-ups) Social History Tobacco Use Types Packs/Day Years [...] Pests such as bugs, ants, or mice;Lead [place] or Pipes;Inadequate heat 09/06/2024 Food Insecurity Answer [...] encounter Miscellaneous Notes * Telephone Encounter - Nimisha Griffin - 01/04/2025 9:57 AM EDT RX for pull ups signed and faxed to [employer] . Confirmation received and sent to scan. If patient calls to check status on above, please advise them to [facility] @ [phone] . * Telephone Encounter - Nimisha Griffin - 12/28/2024 8:24 AM EDT DME request for Diapers/pull ups from [facility] received. DME RX generated and placed on providers desk for review and signature. documented in this encounter Plan of Treatment Upcoming Encounters Date Type Department Care Team (Late st Contact Info) Description 01/13/2025 10:00 AM EDT Telemedicine [facility] [address] [facility] [place] [address] 02/16/2025 2:00 PM EDT Office Visit [facility] OPTOMETRY [address] [place] [address] Martine Benavidez, OD [address] [place] [address] 04/07/2025 10:15 AM EDT Office Visit [facility] MED[facility] [address] [place], [place] [phone] Sheree Strong NP [address] [place], [place] [phone] documented as of this encounter Visit Diagnoses Not on filedocumented in this encounter Additional Health Concerns Assessment Noted Time PHQ-9 Depression Total Score: 17 024 2:44 PM EST documented as of this encounter Care Teams Rn Interventional Relationship Specialty Start Date End Date Sheree Strong NP [address] [place] [address] PCP - General Family Medicine 09/06/24 documented as of this encounter
--- OUTSIDE RECORDS SUMMARY | 2025-01-10 12:27 | XMS_ITS | Clinical Summary ---
Author Organization [facility] [facility] Address [address] [place] [phone] Phone Care Team Providers Care Automobile Rental Representative Name Role Phone Kenny Kruse Primary Care Provider Allergies Active Allergy Reactions Criticality Noted Date [...] Overview (08/20/2023): I25.10: Atherosclerotic heart disease of [place] coronary artery without angina pectoris Atherosclerosis of [...] 12/24/1979 Influenza Vaccine (#1) 2024 Care Teams Automobile Rental Representative Relationship Specialty Start Date End Date Kenny Kruse [address] [place] [address] PCP - General Family Medicine 08/20/23
--- OUTSIDE RECORDS SUMMARY | 2025-01-10 12:27 | XMS_ITS | Encounter Summary ---
Demographics Address [address] [place] [address] Work Phone Mobile Phone Email Address Preferred Language en Marital Status Rastafarian Affiliation Unknown Race Other Race Ethnic Group or Author Organization [employer] Address [address] [facility] [address] [place] [address] Care Team Providers Care Ivf Embryologist Name Role Phone Sheree Strong NP Primary Care Provider [phone] Reason for Visit * Reason Onset Date Comments chart prep 01/05/2025 Encounter Details Date Type Department Care Team ([facility] st Contact Info) Description 01/05/2025 Telephone [facility] [address] [place], [place] [id number] Mika Figueroa MA chart prep Social History Tobacco Use Types Packs/Day Years [...] Pests such as bugs, ants, or mice;Lead [place] or Pipes;Inadequate heat 09/06/2024 Food Insecurity Answer [...] encounter Miscellaneous Notes * Telephone Encounter - Mika Figueroa MA - 01/05/2025 1:59 PM EDT Chart Prep Labs: done Images: done Vaccines due: yes Referrals: pending appt Screenings: Foot Exam Overdue care gaps: A1C, Glucose, PHQ-9, CELIA-7, Disability documented in this encounter Plan of Treatment Upcoming Encounters Date Type Department Care Team (Late st Contact Info) Description 01/13/2025 10:00 AM EDT Telemedicine [facility] MEDICINE [address] [place] [address] 02/16/2025 2:00 PM EDT Office Visit [facility] [address] [place] [address] Martine Benavidez, OD [address] [place] [address] 04/07/2025 10:15 AM EDT Office Visit [facility] [address] [place] [address] Sheree Strong, LISHA [address] [place] [address] documented as of this encounter Visit Diagnoses Not on filedocumented in this encounter Additional Health Concerns Assessment Noted Time PHQ-9 Depression Total Score: 17 024 2:44 PM EST documented as of this encounter Care Teams Ivf Embryologist Relationship Specialty Start Date End Date Sheree Strong NP [address] [place] [address] PCP - General Family Medicine 09/06/24 documented as of this encounter
--- OUTSIDE RECORDS SUMMARY | 2025-01-10 12:27 | XMS_ITS | Encounter Summary ---
Demographics Address [address] [place] [address] Work Phone Mobile Phone Email Address Preferred Language en Marital Status Buddhism Affiliation Unknown Race Other Race Ethnic Group or Author Organization [employer] Address [address] [facility] [address] [place] [address] Care Team Providers Care Staffing Assistant Name Role Phone Sheree Strong NP Primary Care Provider [phone] Reason for Visit * Reason Onset Date Comments No Show 12/22/2024 Encounter Details Date Type Department Care Team ([facility] st Contact Info) Description 12/22/2024 Telephone [facility] [address] [place], [place] [phone] Alma Kumar MD [address] [place], [place] [phone] No Show Social History Tobacco Use Types Packs/Day Years [...] Pests such as bugs, ants, or mice;Lead [place] or Pipes;Inadequate heat 09/06/2024 Food Insecurity Answer [...] Telephone Encounter - Cathy Lord RN - 12/29/2024 11:19 AM EDT Tc to pt in regards to no show their last HDF with Dr. Crockett. Pt reports tehir transportation services went to their old address which caused them to miss that appt. Pt denies any memory or forgetfulness. Pt reports they have a pulse ox for over a year and yesterday showing their O2 ranging numn51-61%. Pt denies wearing oxygen, sob, or signs of blue tint around their lips, fingers and skin. Pt is able to form complete sentences with out signs of labored breathing. Pt advised pulse ox may befaulty and advised to get a new one or change the battery. Discussed s/s of SOB and stroke with pt.Pt advised to call 911 and go to the ED immediately to be evaluated if they develop these symptoms.Pt expressed understanding and HDF scheduled on 01/06/25 with PCP. * Telephone Encounter - Teresa Hastings - 12/29/2024 10:55 AM EDT Tc from pt returning phone call. [phone] * Telephone Encounter - Cathy Lord RN - 12/22/2024 10:39 AM EST Tc to pt to do status check for no show to HDF appt with Dr. Chamberlain today. No answer, lvm to return call and ask to speak to blue team nurses. * Telephone Encounter - Erlinda Mcclellan - 12/22/2024 10:34 AM EST Pt no showed to Hospital fu on 12/22/24 documented in this encounter Plan of Treatment Upcoming Encounters Date Type Department Care Team (Late st Contact Info) Description 01/13/2025 10:00 AM EDT Telemedicine [facility] MEDICINE [address] [place] [address] 02/16/2025 2:00 PM EDT Office Visit [facility] OPTOMETRY [address] [place] [address] Martine Benavidez, OD [address] [place] [address] 04/07/2025 10:15 AM EDT Office Visit [facility] [address] [place] [address] Sheree Strong NP [address] [place] [address] documented as of this encounter Visit Diagnoses Not on filedocumented in this encounter Additional Health Concerns Assessment Noted Time PHQ-9 Depression Total Score: 17 024 2:44 PM EST documented as of this encounter Care Teams Staffing Assistant Relationship Specialty Start Date End Date Sheree Strong NP [address] [place] [address] PCP - General Family Medicine 09/06/24 documented as of this encounter
--- OUTSIDE RECORDS SUMMARY | 2025-01-10 12:27 | XMS_ITS | Encounter Summary ---
Demographics Address [address] [place] [address] Work Phone Mobile Phone Email Address Preferred Language en Marital Status Confucianism Affiliation Unknown Race Other Race Ethnic Group or Author Organization [employer] [facility] Address [address] [facility] [address] [place] [address] Care Team Providers Care Petroleum Engineering Teacher Name Role Phone Sheree Strong NP Primary Care Provider [phone] Reason for Visit * Reason Onset Date Comments Nurse Triage 07/06/2024 Encounter Details Date Type Department Care Team (Late st Contact Info) Description 07/06/2024 Telephone [facility] MEDICINE [address] [place] [phone] Emma De La Cruz, ANP [address] [place] [address] Nurse Triage Social History Tobacco Use Types [...] Info) Description 01/13/2025 10:00 AM EDT Telemedicine [facility] MEDICINE [address] [place] [address] 02/16/2025 2:00 PM EDT Office Visit [facility] OPTOMETRY [address] [place] [address] Martine Benavidez, OD [address] [place] [address] 04/07/2025 10:15 AM EDT Office Visit [facility] MED[facility] [address] [place] [address] Sheree Strong NP [address] [place] [address] documented as of this encounter Visit Diagnoses Not on filedocumented in this encounter Care Teams Petroleum Engineering Teacher Relationship Specialty Start Date End Date Sheree Strong NP [address] [place] [address] PCP - General Family Medicine 09/06/24 documented as of this encounter
--- OUTSIDE RECORDS SUMMARY | 2025-01-10 12:27 | XMS_ITS | Encounter Summary ---
Demographics Address [address] [place] [address] Work Phone Mobile Phone Email Address Preferred Language en Marital Status Sikhism Affiliation Unknown Race Other Race Ethnic Group or Author Organization [employer] [facility] Address [address] [facility] [address] [place] [address] Care Team Providers Care Laborer Concrete Plant Name Role Phone Tae Sheree LISHA Primary Care Provider [phone] Reason for Visit * Reason Comments Med Refill Encounter Details Date Type Department Care Team (Late st Contact Info) Description 07/23/2024 Refill [facility] [address] [place] [address] Emma De La Cruz ANP [address] [place] [address] Chronic obstructive pulmonary disease, unspecified COPD type (CMS/HCC) Social History Tobacco Use Types Packs/Day Years [...] Info) Description 01/13/2025 10:00 AM EDT Telemedicine [facility] [address] [place] [address] 02/16/2025 2:00 PM EDT Office Visit [facility] OPT[facility] [address] [place] [address] Martine Benavidez, OD [address] [place] [address] 04/07/2025 10:15 AM EDT Office Visit [facility] [address] [place] [address] Sheree Strong NP [address] [place] [address] documented as of this encounter Visit Diagnoses Diagnosis Chronic obstructive pulmonary disease, unspecified COPD type ([facility]) documented in this encounter Care Teams Laborer Concrete Plant Relationship Specialty Start Date End Date Sheree Strong NP [address] [place] [address] PCP - General Family Medicine 09/06/24 documented as of this encounter
--- OUTSIDE RECORDS SUMMARY | 2025-01-10 12:27 | XMS_ITS | Clinical Summary ---
Demographics Address [address] [place] [address] Mobile Phone Preferred Language en Marital Status Gnosticist Affiliation Unknown Race Other Race Ethnic Group or Author Organization [facility] Address [address] [place] [address] Phone Care Team Providers Care Lavatory Attendant Name Role Phone Tae Sheree BISHOP Primary Care Provider [phone] Allergies No known active allergies Medications budesonide-form oteroL (SYMBICORT) 80-4.5 mcg/actuation inhaler Inhale 2 puffs by mouth 2 (two) times a day. Rinse mouth with water after use to reduce aftertaste and incidence of candidiasis. Do not swallow. Active atorvastatin (LIPITOR) 40 mg tablet Take 1 tablet (40 mg total) by mouth at bedtime. 30 each 5 Active DULoxetine (CYMBALTA) [address] capsule Take 1 capsule (60 mg total) by mouth 1 (one) time each day. Do not crush or chew. 30 each 5 Active gabapentin (NEURONTIN) 400 mg capsule Take 1 capsule (400 mg total) by mouth every 8 (eight) hours. 90 each 5 Active traZODone (DESYREL) 150 mg tablet Take 1 tablet (150 mg total) by mouth at bedtime. 30 each 5 Active Active Problems Problem Noted Date Diagnosed Date Noncompliance 10/29/2024 HTN (hypertension) 10/29/2024 Stroke 10/25/2024 Diabetes 10/25/2024 CVA (cerebral vascular accident) 10/25/2024 Resolved Problems Problem Noted Date Diagnosed Date Resolved Date TIA (transient ischemic attack) 10/29/2024 11/08/2024 Encounters Date Type Department Care Team Description 11/24/2024 Patient Outreach [facility] [address] [phone] Mariah Valencia LCSW 11/07/2024 Plan of Care Documentation [facility] [address] [place] [address] 11/03/2024 12:50 PM EST - 11/03/2024 9:01 PM EST Emergency [facility] Emergency [address] [place] [address] Elijah Broderick MD Cheng, Ting Ho Danny, DO Left facial numbness (Primary Dx); Cerebrovascular accident (CVA), unspecified mechanism (CMS/HCC) Discharge Disposition: Home or Self Care 10/31/2024 Plan of Care Documentation [facility] [address] [place] [phone] 10/25/2024 1:27 PM EST - 11/08/2024 11:35 AM EST Hospital Encounter [facility] [address] [place] [phone] Juliann Man DO Cerebrovascular accident (CVA), unspecified [...] been verbally abused? Not on file 10/25/2024 Comments Unknown Sex and Gender Information Value Date Recorded Sex Assigned at Female 10/25/2024 2:10 PM EST Legal Sex Female 1:23 PM EST Gender Identity Female 10/25/2024 2:10 PM EST Sexual Orientation Straight 10/25/2024 2: 10 PM EST Obstetrics History Last Filed Vital Signs Vital [...] 11/03/2024 12:45 PM EST Plan of Treatment Health Maintenance Due Date Last Done Comments COVID-19 Vaccine (#1) 1965 Diabetes: Annual Foot Exam 1970 Diabetes: Annual Retina Eye Exam 1970 Pneumococcal Vaccine: 50+ Years (1 of 2 - PCV) 12/24/1979 Cervical Cancer Screening: Pap Smear 1981 Pneumococcal Vaccine: Pediatrics (0 to 5 Years) and At-Risk Patients (6 to 64 Years) (2 of 2 - PPSV23) 07/31/1997 06/05/1997 Zoster Vaccines (1 of 2) [...] patient's age to complete this topic Meningococcal B Vacine Aged Out No lo nger eligible based on patient's age to complete [...] ECG 12-LEAD STAT 11/03/2024 1:23 PM EST NC CRITICAL CARE 30-74 MINUTES Routine 11/03/2024 12:47 [...] within normal limits Juliann Man DO NEUROLOGY ORDERABLES [place] Result * POCT Glucose, blood (11/07/2024 7:18 AM EST) Only the most recent of50 resultswithin the time period is included. [facility] Glucose POCT 96 70 - 100 mg/dL 11/07/2024 7:19 AM EST [facility] Blood Capillary blood specimen / Unknown 11/07/2024 7:18 AM EST 11/07/2024 7:21 AM EST Juliann Man DO LAB POINT OF CARE TEST DOCKED DEVICE UNSOLICITED RESULTS Final Result [facility] [address] [place] [address], [place] [phone] * Troponin I high sensitivity (NOW and then in 1 hour) (11/03/2024 7:24 PM EST) [facility] High Sensitivity Troponin I 7 <=54 ng/L LAB CHEMISTRY METHOD 11/03/2024 8:21 PM EST [facility] Blood Venous blood specimen / Unknown Venipuncture / Unknown 11/03/2024 7:24 PM EST 11/03/2024 7:47 PM EST Narrative [facility] - 11/03/2024 8:21 PM EST High levels of biotin in samples may falsely decrease hsTroponin values. ??Use caution when interpreting hsTroponin results in patients taking biotin who exhibit renal impairment (eGFR <60) or in patients taking more than 20 mg/day of biotin. us Fernanda EATON LAB BLOOD ORDERABLES Final Res ult [facility] [address] [place] [address], [place] [phone] * MR Brain wo Contrast (11/03/2024 6:56 [...] 11/03/2024 19:30:07 Fernanda EATON IMG MRI PROCEDURES Final Resul t * XR Chest 1 View (11/03/2024 4:08 PM EST) Anatomical Region Laterality Modality Body Radiographic Reny ging 11/03/2024 4:23 PM EST Impressions 11/03/2024 4:23 PM EST No evidence of active pulmonary disease. [id number] -------- FINAL REPORT -------- Dictated By: Dell Abraham Dictated Date: 11/03/2024 16:23 ET Assigned Physician: Dell Abraham Reviewed and Electronically Signed By: Dell Abraham Signed Date: 11/03/2024 16:23 ET Workstation ID: [id number] Transcribed By: Self Edit Transcribed Date: 11/03/2024 [...] IMPRESSION: No evidence of active pulmonary disease. [id number] -------- FINAL REPORT -------- Dictated By: Dell Abraham Dictated Date: 11/03/2024 16:23 ET Assigned Physician: Dell Abraham Reviewed and Electronically Signed By: Dell Abraham Signed Date: 11/03/2024 16:23 ET Workstation ID: [id number] Transcribed By: Self Edit Transcribed Date: 11/03/2024 16:23 ET Fernanda EATON IMG XR PROCEDURES Final Result * (ABNORMAL) CBC auto differential (11/03/2024 2:02 PM EST) Only the most recent of2 resultswithin the time period is included. WBC 6.9 4.8 - 10.8 K/mcL LAB HEMETOLOGY METHOD 11/03/2024 2:13 PM [facility] RBC 4.60 3.80 - 4.80 M/mcL LAB HEMETOLOGY METHOD 11/03/2024 2:13 PM [facility] Hemoglobin 11.0(L) 11.5 - 16.0 g/dL LAB HEMETOLOGY METHOD 11/03/2024 2:13 PM [facility] Hematocrit 36.1 35.0 - 47.0 % LAB HEMETOLOGY METHOD 11/03/2024 2:13 PM [facility] MCV 79.2 79.0 - 98.0 FL LAB HEMETOLOGY METHOD 11/03/2024 2:13 PM [facility] MCH 24.1(L) 27.0 - 32.0 pcg LAB HEMETOLOGY METHOD 11/03/2024 2:13 PM [facility] MCHC 30.5(L) 32.0 - 37.0 g/dL LAB HEMETOLOGY METHOD 11/03/2024 2:13 PM [facility] RDW 17.0(H) 11.0 - 15.0 % LAB HEMETOLOGY METHOD 11/03/2024 2:13 PM [facility] Platelets 224 130 - 400 K/mcL LAB HEMETOLOGY METHOD 11/03/2024 2:13 PM [facility] MPV 10.1 7.0 - 11.0 FL LAB HEMETOLOGY METHOD 11/03/2024 2:13 PM [facility] NRBC 0.0 <1.0 % LAB HEMETOLOGY METHOD 11/03/2024 2:13 PM [facility] NRBC Absolute 0.00 <0.10 K/mcL LAB HEMETOLOGY METHOD 11/03/2024 2:13 PM [facility] Neutrophils Relative 49.9 % LAB HEMETOLOGY METHOD 11/03/2024 2:13 PM [facility] Lymphocytes Relative 36.7 % LAB HEMETOLOGY METHOD 11/03/2024 2:13 PM [facility] Monocytes Relative 9.9 % LAB HEMETOLOGY METHOD 11/03/2024 2:13 PM [facility] Eosinophils Relative 2.0 % LAB HEMETOLOGY METHOD 11/03/2024 2:13 PM [facility] Basophils Relative 0.3 % LAB HEMETOLOGY METHOD 11/03/2024 2:13 PM [facility] Immature Granulocytes Relative 1.2 % LAB HEMETOLOGY METHOD 11/03/2024 2:13 PM [facility] Neutrophils Absolute 3.43 1.50 - 7.00 K/mcL LAB HEMETOLOGY METHOD 11/03/2024 2:13 PM [facility] Lymphocytes Absolute 2.52 1.00 - 5.00 K/mcL LAB HEMETOLOGY METHOD 11/03/2024 2:13 PM [facility] Monocytes Absolute 0.68 0.20 - 1.00 K/mcL LAB HEMETOLOGY METHOD 11/03/2024 2:13 PM [facility] Eosinophils Absolute 0.14 0.00 - 0.50 K/[facility] LAB HEMETOLOGY METHOD 11/03/2024 2:13 PM EST [facility] Basophils Absolute 0.02 0.00 - 0.20 K/[facility] LAB HEMETOLOGY METHOD 11/03/2024 2:13 PM EST [facility] Immature Granulocytes Absolute 0.08(H) 0.00 - 0.03 K/[facility] LAB HEMETOLOGY METHOD 11/03/2024 2:13 PM EST [facility] Blood Venous blood specimen / Unknown Venipuncture / Unknown 11/03/2024 2:02 PM EST 11/03/2024 2:10 PM EST us Fernanda EATON LAB BLOOD ORDERABLES Final Res ult Performing Organization Address [facility]/ZIP Co de Phone Number [facility] [address] [place] [address], * Prolactin (11/03/2024 2:02 PM EST) Prolactin 7.40 See Comment ng/mL LAB CHEMISTRY METHOD 11/04/2024 1:00 PM EST [facility] Comment: Prolactin Reference Ranges (ng/mL) ??Non ?2.2 - ??30.3 ? 8.1 - 347.6 ??Postmenopausal 0.7 - ??31.5 Blood Venous blood specimen / Unknown Venipuncture / Unknown 11/03/2024 2:02 PM EST 11/03/2024 2:10 PM EST Trenton EATON LAB BLOOD ORDERABLES Final R esult [facility] [address] [place] [address], * APTT (11/03/2024 2:02 PM EST) aPTT 29.6 24.1 - 39.3 sec LAB COAGULATION METHOD 11/03/2024 2:22 PM EST [facility] Blood Venous blood specimen / Unknown Venipuncture / Unknown 11/03/2024 2:02 PM EST 11/03/2024 2:10 PM EST [facility]OD ORDERABLES Final Res ult [facility] [address] [place] [address], [place] [phone] * Protime-INR (11/03/2024 2:02 PM EST) Protime 12.0 10.6 - 13.9 sec LAB COAGULATION METHOD 11/03/2024 2:22 PM EST [facility] INR 1.0 LAB COAGULATION METHOD 11/03/2024 2:22 PM EST [facility] Blood Venous blood specimen / Unknown Venipuncture / Unknown 11/03/2024 2:02 PM EST 11/03/2024 2:10 PM EST Fernanda [place] LAB BLOOD ORDERABLES Final Res ult Performing Organization Address [facility]/ZIP Co de Phone Number [facility] [address] [place] [address], [place] [phone] * Magnesium (11/03/2024 2:02 PM EST) Magnesium 1.9 1.9 - 2.6 mg/dL LAB CHEMISTRY METHOD 11/04/2024 12:59 PM EST [facility] Blood Venous blood specimen / Unknown Venipuncture / Unknown 11/03/2024 2:02 PM EST 11/03/2024 2:10 PM EST Trenton EATON LAB BLOOD ORDERABLES Final R esult [facility] [address] [place] [address], [place] [phone] * Comprehensive metabolic panel (11/03/2024 2:02 PM EST) Only the most recent of3 resultswithin the time period is included. Sodium 134 133 - 145 mmol/L LAB CHEMISTRY METHOD 11/03/2024 2:45 PM [facility] Potassium 4.1 3.5 - 5.5 mmol/L LAB CHEMISTRY METHOD 11/03/2024 2:45 PM [facility] Chloride 102 96 - 110 mmol/L LAB CHEMISTRY METHOD 11/03/2024 2:45 PM [facility] CO2 27 21 - 32 mmol/L LAB CHEMISTRY METHOD 11/03/2024 2:45 PM [facility] Anion Gap 5 3 - 11 LAB CHEMISTRY METHOD 11/03/2024 2:45 PM [facility] Glucose 93 70 - 100 mg/dL LAB CHEMISTRY METHOD 11/03/2024 2:45 PM [facility] BUN 23 5 - 25 mg/dL LAB CHEMISTRY METHOD 11/03/2024 2:45 PM [facility] Creatinine 0.80 0.50 - 1.10 mg/dL LAB CHEMISTRY METHOD 11/03/2024 2:45 PM [facility] eGFR 83 >=60 mL/min/1. 73m2 LAB CHEMISTRY METHOD 11/03/2024 2:45 PM [facility] Comment:Calculation based on the??Chronic Kidney Disease Epidemiology Collaboration (CKD-EPI) equation refit??without adjustment for race. BUN/Creatinine Ratio 28.8 LAB CHEMISTRY METHOD 11/03/2024 2:45 PM [facility] Calcium 8.6 8.5 - 10.5 mg/dL LAB CHEMISTRY METHOD 11/03/2024 2:45 PM EST [facility] AST (SGOT) 20 10 - 42 unit/L LAB CHEMISTRY METHOD 11/03/2024 2:45 PM EST [facility] ALT (SGPT) 28 10 - 60 unit/L LAB CHEMISTRY METHOD 11/03/2024 2:45 PM [facility] Alkaline Phosphatase 72 42 - 121 unit/L LAB CHEMISTRY METHOD 11/03/2024 2:45 PM EST [facility] Total Protein 6.3 6.0 - 8.0 g/dL LAB CHEMISTRY METHOD 11/03/2024 2:45 PM EST [facility] Albumin 3.2 3.2 - 5.0 g/dL LAB CHEMISTRY METHOD 11/03/2024 2:45 PM [facility] Total Bilirubin 0.4 0.0 - 1.4 mg/dL LAB CHEMISTRY METHOD 11/03/2024 2:45 PM EST [facility] Blood Venous blood specimen / Unknown Venipuncture / Unknown 11/03/2024 2:02 PM EST 11/03/2024 2:10 PM EST us Fernanda EATON LAB BLOOD ORDERABLES Final Res ult [facility] [address] [place] [address], * CT Angio Head/Neck Stroke wo and/or [...] Signed Date: 11/03/2024 14:14 ET Workstation ID: [id number] Transcribed By: Self Edit Transcribed Date: 11/03/2024 [...] reconstructions performed on a computer workstation. Scanner: [email or web address] 64slice VCT Dose reduction technique: ASIR (Adaptive [...] reconstructions performed on a computer workstation. Scanner: [email or web address] 64slice VCT Dose reduction technique: ASIR (Adaptive [...] Signed Date: 11/03/2024 14:14 ET Workstation ID: [id number] Transcribed By: Self Edit Transcribed Date: 11/03/2024 14:02 ET us Fernanda EATON IMG CT PROCEDURES Final Result * ECG 12 lead (11/03/2024 1:23 PM EST) Only the most recent of2 resultswithin the time period is included. Ventricular Rate ECG 94 BPM GEMUSE Atrial Rate 94 BPM GEMUSE P-R Interval 130 ms GEMUSE QRS Duration 94 ms GEMUSE Q-T Interval 372 ms GEMUSE QTc 465 ms GEMUSE P Wave Cougar 57 degrees GEMUSE R Cougar -32 degrees GEMUSE T Cougar 74 degrees GEMUSE ECG Interpretation Normal sinus rhythm Possible Left atrial enlargement Left axis deviation Septal infarct , age undetermined Abnormal ECG When compared with ECG of 03-NOV-2024 12:07, (unconfirmed) Premature ventricular complexes are no longer Present Septal infarct is now Present Confirmed by Ness DOSS JAMES ([id number]) on 11/03/2024 9:39:11 PM GEMUSE 11/03/2024 1:23 PM EST 11/03/2024 9:39 PM EST us Fernanda EATON ECG ORDERABLES Final Result GEMUSE * NC CRITICAL CARE 30-74 MINUTES (11/03/2024 12:47 PM EST) Narrative Elijah Broderick MD - 11/03/2024 12:47 PM EST UMA Ryan ? 11/03/2024 ??9:22 PM Critical Care Performed by: UMA Ryan Authorized by: Elijah Broderick MD ?? Critical care provider statement: ??Critical care time (minutes): ??30 ??Critical care was necessary to treat or prevent imminent or life-threatening deterioration of the following conditions: ??BILLIARD PARLOR MANAGER failure or compromise ??Critical care was time spent personally by me on the following activities: ??Examination of patient, ordering and performing treatments and interventions, ordering and review of laboratory studies, ordering and review of radiographic studies, review of old charts, re-evaluation of patient's condition, obtaining history from patient or surrogate, discussions with consultants and development of treatment plan with patient or surrogate us Elijah Broderick MD IN CLINIC/BEDSIDE ORDERABLE S Final Result * CT Head Stroke wo Contrast (11/03/2024 12:40 PM EST) Anatomical Region Laterality Modality Head and Neck Computed Tomogra phy 11/03/2024 1:35 PM EST Impressions 11/03/2024 1:38 PM EST No evidence of acute intracranial process on noncontrast head CT. A Critical Document Only message has been documented for the office of TRENTON BECK in the [employer] Actionable Findings ??system on 11/03/2024 1:38 PM, Message ID [id number]. -------- FINAL REPORT -------- Dictated By: Dell Abraham Dictated Date: 11/03/2024 13:35 ET Assigned Physician: Dell Abraham Reviewed and Electronically Signed By: Dell Abraham Signed Date: 11/03/2024 13:38 ET Workstation ID: [id number] Transcribed By: Self Edit Transcribed Date: 11/03/2024 13:35 ET Narrative 11/03/2024 1:38 PM EST INDICATION: Left-sided weakness and facial numbness Technique: Axial images were obtained from the skull base to the vertex without contrast enhancement. Scanner: [email or web address] 64 slice VCT Dose reduction technique: ASIR [...] base to the vertexwithout contrast enhancement. Scanner: [employer]bottle[employer] 64 slice VCT Dose reduction technique: ASIR [...] for the office ofTRENTON BECK in the [employer] system on11/03/2024 1:38 PM, Message ID [id number]. -------- FINAL REPORT -------- Dictated By: Dell Abraham Dictated Date: 11/03/2024 13:35 ET Assigned Physician: Dell Abraham Reviewed and Electronically Signed By: Dell Abraham Signed Date: 11/03/2024 13:38 ET Workstation ID: [id number] Transcribed By: Self Edit Transcribed Date: 11/03/2024 13:35 ET Trenton EATON IMG CT PROCEDURES Final Resu lt * ECG-Annotated (11/03/2024) Only the most recent of2 resultswithin the time period is included. us Provider Onbase MD ECG ORDERABLES Final Result * (ABNORMAL) Complete blood count (10/29/2024 6:03 AM EST) WBC 4.9 4.8 - 10.8 K/mcL LAB HEMETOLOGY METHOD 10/29/2024 7:15 AM [facility] RBC 4.60 3.80 - 4.80 M/mcL LAB HEMETOLOGY METHOD 10/29/2024 7:15 AM [facility] Hemoglobin 10.8(L) 11.5 - 16.0 g/dL LAB HEMETOLOGY METHOD 10/29/2024 7:15 AM [facility] Hematocrit 35.7 35.0 - 47.0 % LAB HEMETOLOGY METHOD 10/29/2024 7:15 AM [facility] MCV 78.1(L) 79.0 - 98.0 FL LAB HEMETOLOGY METHOD 10/29/2024 7:15 AM [facility] MCH 23.6(L) 27.0 - 32.0 pcg LAB HEMETOLOGY METHOD 10/29/2024 7:15 AM [facility] MCHC 30.3(L) 32.0 - 37.0 g/dL LAB HEMETOLOGY METHOD 10/29/2024 7:15 AM [facility] RDW 16.0(H) 11.0 - 15.0 % LAB HEMETOLOGY METHOD 10/29/2024 7:15 AM [facility] Platelets 227 130 - 400 K/mcL LAB HEMETOLOGY METHOD 10/29/2024 7:15 AM EST [facility] MPV 11.0 7.0 - 11.0 FL LAB HEMETOLOGY METHOD 10/29/2024 7:15 AM EST [facility] NRBC 0.0 <1.0 % LAB HEMETOLOGY METHOD 10/29/2024 7:15 AM EST [facility] NRBC Absolute 0.00 <0.10 K/mcL LAB HEMETOLOGY METHOD 10/29/2024 7:15 AM EST [facility] Blood Venous blood specimen / Unknown Venipuncture / Unknown 10/29/2024 6:03 AM EST 10/29/2024 6:41 AM EST Trenton EATON LAB BLOOD ORDERABLES Final R esult [facility] [address] [place] [address], * XR Shoulder 2+ Views Right (10/26/2024 2:22 PM EST) Anatomical Region Laterality Modality Upper Extremities, Shoulder Right Radi ographic Imaging 10/26/2024 2:24 PM EST Impressions 10/26/2024 2:25 PM EST No shoulder fracture or dislocation. [id number] -------- FINAL REPORT -------- Dictated By: Dell Abraham Dictated Date: 10/26/2024 14:24 ET Assigned Physician: Dell Abraham Reviewed and Electronically Signed By: Dell Abraham Signed Date: 10/26/2024 14:25 ET Workstation ID: [id number] Transcribed By: Self Edit Transcribed Date: 10/26/2024 [...] changes. IMPRESSION: No shoulder fracture or dislocation. [id number] -------- FINAL REPORT -------- Dictated By: Dell Abraham Dictated Date: 10/26/2024 14:24 ET Assigned Physician: Dell Abraham Reviewed and Electronically Signed By: Dell Abraham Signed Date: 10/26/2024 14:25 ET Workstation ID: [id number] Transcribed By: Self Edit Transcribed Date: 10/26/2024 14:24 ET Juliann Man DO IMG XR PROCEDURES Final R esult * Hemoglobin A1c (10/26/2024 6:38 AM EST) Hemoglobin A1C 6.1 <6.5 % LAB CHEMISTRY METHOD 10/26/2024 1:05 PM EST [facility] Mean Bld Glu Estim. 128 mg/dL LAB CHEMISTRY METHOD 10/26/2024 1:05 PM EST [facility] Blood Venous blood specimen / Unknown Venipuncture / Unknown 10/26/2024 6:38 AM EST 10/26/2024 6:46 AM EST Ghazal EATON LAB BLOOD ORDERABLES Final Re sult [facility] [address] [place] [address], [place] [phone] * ECG-Outside (10/25/2024) Provider Onbase ECG ORDERABLES Final Result from Last 3 Months Insurance * Guarantor: Estephania Bill Account Type Relation to Patient Date of Phone Billing Address Personal/Family Self 1960 [address] [place] [address] MEDICA[place] - [place] Advance Directives Documents on File Type Date Recorded 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
--- OUTSIDE RECORDS SUMMARY | 2025-01-10 12:27 | XMS_ITS | Encounter Summary ---
Author Organization [facility] Address [address] [place] [phone] Phone Care Team Providers Care Digital Production Manager Name Role Phone Kenny Kruse Primary Care Provider Encounter Details Date Type Department Care Team (Late st Contact Info) Description 12/05/2019 Hospital/ED/SNF/HH Visit [facility] [address] [place] [address] Provider, MD Maria Isabel [address] [place] [id number] Social History Tobacco Use Types Packs/Day Years Used Date Smoking Tobacco: Never Assessed Sex and Gender Information Value Date Recorded Sex Assigned at Not on file Gender Identity Not on file Sexual Orientation Not on file documented as of this encounter Plan of Treatment Not on file documented as of this encounter Visit Diagnoses Not on filedocumented in this encounter Care Teams Digital Production Manager Relationship Specialty Start Date End Date Kenny Kruse [address] [place] [address] PCP - General Family Medicine 08/20/23 documented as of this encounter
--- OUTSIDE RECORDS SUMMARY | 2025-01-10 12:27 | XMS_ITS | Encounter Summary ---
Author Organization [facility] Address [address] [place] [address] Phone Care Team Providers Care Digital Account Supervisor Name Role Phone Kenny Kruse Primary Care Provider [phone] Encounter Details Date Type Department Care Team (Late st Contact Info) Description 12/05/2019 Hospital/ED/SNF/HH [facility] [address] [place] [address] Provider, MD Maria Isabel [address] [place] [phone] Social History Tobacco Use Types Packs/Day [...] filedocumented in this encounter Care Teams Digital Account Supervisor Relationship Specialty Start Date End Date Kenny Kruse [address] [place] [address] PCP - General Family Medicine 08/20/23 documented as of this encounter
== END 2025-01-10 10:23 | disposition home or self-care (01) ==
LOC: HO.MAMMO 10:22
PROVIDERS: PCP Nurse Practitioner Primary Care; Visit Provider Advanced Practice Midwife
DX: N63.41 Unspecified lump in right breast, subareolar (principal); N64.4 Mastodynia
CPT/HCPCS: 76642; 77062; 77066

== ENCOUNTER → 2025-01-10 11:00 | Outpatient (BNV) | payer MEDICAID, SELFPAY | PROVIDERS: PCP Nurse Practitioner Primary Care; Visit Provider Internal Medicine | DX: N64.4 Mastodynia (principal); N63.21 Unspecified lump in the left breast, upper outer quadrant | CPT/HCPCS: 76642; 77062; 77066 ==

== ENCOUNTER 2025-03-02 11:01 | Outpatient (AMB) | payer MEDICAID, SELFPAY ==
[2025-03-02 11:11] VITALS: BP 130/70; PULSE 69; BMI 19.3
--- NOTE | 2025-03-02 11:11 | A.OFFVIS_ITS ---
Vital Signs 03/02/25 11:11 Height 5 ft 3 in Weight 108 lb 14.534 oz BMI 19.3 BP 130/70 Blood Pressure Location Lt brachial Position Sitting Pulse 69 Pulse Source Pulse Oximeter Intake Visit Reasons: r/s 12-15-24 follow up after testing Chief Psychologist Required: No Accompanied by: Self / Same As Patient Allergies cat dander [CAT DANDER] Allergy (Mild, Verified 11/14/24 11:05) ITCHY EYES Medication List - Last Reconciled 03/02/25 by Mynor Ramos MD albuterol sulfate 90 mcg/actuation (Ventolin HFA) 2 puffs inhalation Q6H PRN ascorbic acid (vitamin C) 250 mg PO DAILY aspirin 81 mg PO DAILY atorvastatin 40 mg PO DAILY budesonide-formoterol 160-4.5 mcg/actuation (Symbicort) 2 puffs inhalation BID carvedilol (Coreg) 25 mg PO BID clopidogrel 75 mg PO DAILY docusate sodium 100 mg PO BID duloxetine 60 mg PO DAILY ferrous sulfate (FeroSul) 325 mg PO DAILY gabapentin 400 mg PO TID nitroglycerin 0.4 mg sublingual Q5M PRN oxycodone 5 mg PO BID PRN pantoprazole 40 mg PO DAILY@0630 trazodone 150 mg PO BEDTIME umeclidinium 62.5 mcg/actuation (Incruse Ellipta) 1 inh inhalation DAILY HPI Comments Details: Estephania returns for follow-up. She was seen last year in consultation. Prior to that, she has seen Dr. Patricio for some time and then was in [place]. Her care is quite scattered and hence very difficult to put all this together. Anyway, to recall she has a history of coronary disease going back many years. History of LAD stenting around 2009, followed by renal artery stenting. For the last few years, she has been in [place]. She underwent coronary artery bypass surgery in [place] in 2019. ALMENDAREZ to LAD, saphenous vein to PDA and OM per PCP note. Subsequently, she has had 3 further catheterizations, most recently in 2023. Then it seems that she had a stroke admission to [facility] October of 2024. Recovered from that. Currently, she states she feels fine. Nonspecific fatigue. No anginal-type symptoms. [facility] Medical History (Updated 03/02/25 @ 11:50 by Mynor Ramos MD) Fibromyalgia Insomnia Former heavy tobacco smoker Iron deficiency Abnormal mammogram Osteopenia Lupus (systemic lupus erythematosus) Hypercholesterolemia GERD (gastroesophageal reflux disease) COPD (chronic obstructive pulmonary disease) Polyneuropathy Occlusion and stenosis of left vertebral artery CVA (cerebral vascular accident) Heart failure with recovered ejection fraction (HFrecEF) Arthritis CKD (chronic kidney disease) COPD with asthma Hyperlipidemia Hypertension Atherosclerotic cardiovascular disease Diabetes Surgical History Status post aorto-coronary artery bypass graft History of open heart surgery Family History Father Heart attack Social History Household Members: Family Housing: House Alcohol intake: never Patient Tobacco Use Status: Never used Tobacco Substance Use Type: Marijuana service: No Review of Systems Const Denies chills, Denies fatigue, Denies fever(s), Denies frequent falls, Denies weakness, Denies weight gain and Denies weight loss ENT Denies dizziness Card Denies chest pain, Denies leg edema, Denies lightheadedness, Denies palpitations, Denies dyspnea and Denies dyspnea on exertion Resp Denies cough, Denies dyspnea and Denies dyspnea on exertion GI Denies hematochezia Musc Denies abnormal gait, Denies muscle weakness, Denies numbness, Denies radiating pain into limb and Denies tingling Neuro Denies abnormal gait, Denies dizziness, Denies frequent falls, Denies numbness, Denies tingling and Denies weakness Endo Denies fatigue and Denies palpitations Physical Exam Vital Signs: Last Vital Signs Pulse 69 03/02/25 11:11 BP 130/70 03/02/25 11:11 BMI result Body Mass Index 19.3 Const General: comfortable and no acute distress Orientation/consciousness: patient oriented x3 HEENT Other: Unremarkable Head: Yes normal to inspection Neck Neck: Yes normal visual inspection Chest Chest palpation & inspection: normal inspection of the chest Resp Auscultation: clear to auscultation bilaterally Cardio Palpation: normal PMI Heart sounds: S1 normal heart sound present, S2 normal heart sound present, no gallops, no murmurs and no rubs GI Palpation (GI): Soft to palpation Back/Spine/Pelvis Other: unremarkable Skin General skin exam: no rashes or lesions noted Neuro General: patient oriented x3 Extrem General: Yes normal to inspection Psych Mental Status: mental status grossly normal Assessment & Plan Assessment & Plan (1) Atherosclerotic cardiovascular disease: Code(s): I25.10 - Atherosclerotic heart disease of [place] coronary artery without angina pectoris Category: Medical (2) Status post aorto-coronary artery bypass graft: Code(s): Z95.1 - Presence of aortocoronary bypass graft Category: Surgical (3) Heart failure with recovered ejection fraction (HFrecEF): Code(s): I50.32 - Chronic diastolic (congestive) heart failure Category: Medical (4) Hypertension: Code(s): I10 - Essential (primary) hypertension Category: Medical (5) CVA (cerebral vascular accident): Code(s): I63.9 - Cerebral infarction, unspecified Category: Medical Plan Pertinent data reviewed. Most recent cardiac catheterization is from 2023-that shows multivessel CAD with patent ALMENDAREZ/saphenous grafts. Severe [place] vessel disease. Echocardiogram from [facility]-reported to have grossly normal LVEF; no overt abnormalities. In 2021, LVEF was apparently 30-35%. Overall, established coronary disease with multiple interventions including bypass surgery but no active symptoms. She remains optimal medical therapy including aspirin, Plavix and high-dose statins. May be reasonable to continue the dual antiplatelet therapy because of extensive vascular disease. With regard to the heart failure history, previously, she was on beta-blockers, Entresto, spironolactone and Jardiance. Current med list only shows carvedilol but not any other medications. Meds are quite confusing. Not making any further changes. With regard to the stroke history, per discharge summary, CTA head was nonacute. CTA had shown no intracranial large vessel occlusion but known chronic left vertebral occlusion. Status post TNK. MRI with no acute stroke. Discussion Notes I discussed with the patient the current status of her cardiac and neurological health, focusing on her previous stroke and heart failure management. No need for a new stent was confirmed from the recent catheterization. We talked about the stability she has achieved with carvedilol treatment and the potential benefits of reintroducing Entresto to reinforce her cardiac function, considering her ejection fraction. It was agreed to maintain the current management plan, with follow-up arranged with her regular provider, Emma De La Cruz, to assess progress. No immediate changes were made, and the understanding was that the focus remains on stable management and monitoring closely for any potential shifts in her condition. Patient was informed and verbally consented to the use of an ambient scribe for clinic note documentation during this visit. Patient Instructions: - Take your carvedilol 25 mg twice a day as prescribed. - Discuss restarting Entresto with your regular doctor. - Monitor for any new or worsening symptoms and contact healthcare provider. - Follow up as scheduled with your healthcare provider. - Keep track of your breathing and report significant changes. Coding Level of Care Code Est Pt Level 4 (65995) Complex EM visit Add On G2211 Diagnoses Atherosclerotic cardiovascular disease I25.10 Status post aorto-coronary artery bypass graft Z95.1 Heart failure with recovered ejection fraction (HFrecEF) I50.32 Hypertension I10 CVA (cerebral vascular accident) I63.9
--- OUTSIDE RECORDS SUMMARY | 2025-03-02 12:13 | XMS_ITS | Encounter Summary ---
Author Organization [facility] Address [address] [place] [address] Phone Care Team Providers Care Customer Account Manager Name Role Phone Kenny Kruse Primary Care Provider Encounter Details Date Type Department Care Team (Late st Contact Info) Description 12/05/2019 Hospital/ED/SNF/HH Visit [facility] [address] [place] [address] Provider, MD Maria Isabel [address] [place] [address] Social History Tobacco Use Types Packs/Day Years Used Date Smoking Tobacco: Never Assessed Comments Unknown Sex and Gender Information Value Date Recorded Sex Assigned at Not on file Legal Sex Female 8:17 PM MDT Gender Identity Not on file Sexual Orientation Not on file documented as of this encounter Plan of Treatment Not on file documented as of this encounter Visit Diagnoses Not on filedocumented in this encounter Care Teams Customer Account Manager Relationship Specialty Start Date End Date Kenny Kruse [address] [place] [address] PCP - General Family Medicine 08/20/23 documented as of this encounter
--- OUTSIDE RECORDS SUMMARY | 2025-03-02 12:13 | XMS_ITS | Clinical Summary ---
Demographics Address [address] [place] [address] Mobile Phone Preferred Language en Marital Status Congregation Affiliation Unknown Race Other Race Ethnic Group or Author Organization [facility] Address [address] [place] [address] Phone Care Team Providers Care Advertising Campaign Manager Name Role Phone Tae Sheree BISHOP Primary Care Provider [phone] Allergies No known active allergies Medications budesonide-form [...] Date Noncompliance 10/29/2024 HTN (hypertension) 10/29/2024 Stroke ([facility] V24, [facility] V28) 10/25/2024 Diabetes ([facility] V24, [facility] V28) 10/25/2024 CVA (cerebral vascular accident) ([facility] V24, [place]/[facility] V28) 10/25/2024 Resolved Problems Problem Noted Date Diagnosed Date Resolved Date TIA (transient ischemic attack) 10/29/2024 11/08/2024 Social History Tobacco Use Types Packs/Day Years [...] Breast Cancer Screening 08/26/2020 08/26/2018 RSV Immunization Adult Patients (1 - Risk 60-74 years 1-dose series) [...] age to complete this topic Meningococcal B Vaccine Aged Out No l onger eligible based on patient's age to complete this topic RSV Immunization Patients Under 20 months Aged Out No longer eligible based on patient's age to complete this topic Varicella Vaccines Aged Out No longer eligible based on patient's age to complete this topic Procedures Procedure Name Priority Date/Time Associated Diagnosis Comments COMPREHENSIVE METABOLIC PANEL STAT 11/03/2024 2:02 PM EST HEMOGLOBIN A1C Routine 10/26/2024 6:38 AM EST from Last 3 Months or Most Recently Relevant to Health Maintenance Results * Comprehensive metabolic panel (11/03/2024 2:02 PM EST) Sodium 134 133 - 145 mmol/L LAB CHEMISTRY METHOD 11/03/2024 2:45 PM EST [facility] Potassium 4.1 3.5 - 5.5 mmol/L LAB CHEMISTRY METHOD 11/03/2024 2:45 PM EST [facility] Chloride 102 96 - 110 mmol/L LAB CHEMISTRY METHOD 11/03/2024 2:45 PM EST [facility] CO2 27 21 - 32 mmol/L LAB CHEMISTRY METHOD 11/03/2024 2:45 PM EST [facility] Anion Gap 5 3 - 11 LAB CHEMISTRY METHOD 11/03/2024 2:45 PM EST [facility] Glucose 93 70 - 100 mg/dL LAB CHEMISTRY METHOD 11/03/2024 2:45 PM [facility] BUN 23 5 - 25 mg/dL LAB CHEMISTRY METHOD 11/03/2024 2:45 PM [facility] Creatinine 0.80 0.50 - 1.10 mg/dL LAB CHEMISTRY METHOD 11/03/2024 2:45 PM [facility] eGFR 83 >=60 mL/min/1. 73m2 LAB CHEMISTRY METHOD 11/03/2024 2:45 PM [facility] Comment:Calculation based on the??Chronic Kidney Disease Epidemiology Collaboration (CKD-EPI) equation refit??without adjustment for race. BUN/Creatinine Ratio 28.8 LAB CHEMISTRY METHOD 11/03/2024 2:45 PM [facility] Calcium 8.6 8.5 - 10.5 mg/dL LAB CHEMISTRY METHOD 11/03/2024 2:45 PM [facility] AST (SGOT) 20 10 - 42 unit/L LAB CHEMISTRY METHOD 11/03/2024 2:45 PM [facility] ALT (SGPT) 28 10 - 60 unit/L LAB CHEMISTRY METHOD 11/03/2024 2:45 PM [facility] Alkaline Phosphatase 72 42 - 121 unit/L LAB CHEMISTRY METHOD 11/03/2024 2:45 PM [facility] Total Protein 6.3 6.0 - 8.0 g/dL LAB CHEMISTRY METHOD 11/03/2024 2:45 PM [facility] Albumin 3.2 3.2 - 5.0 g/dL LAB CHEMISTRY METHOD 11/03/2024 2:45 PM [facility] Total Bilirubin 0.4 0.0 - 1.4 mg/dL LAB CHEMISTRY METHOD 11/03/2024 2:45 PM [facility] Blood Venous blood specimen / Unknown Venipuncture / Unknown 11/03/2024 2:02 PM EST 11/03/2024 2:10 PM EST Fernanda EATON LAB BLOOD ORDERABLES Final Res ult Performing Organization Address City/[facility]/ZIP Co de Phone Number [facility] [address] [place] [address], [place] [phone] * Hemoglobin A1c (10/26/2024 6:38 AM EST) Hemoglobin A1C 6.1 <6.5 % LAB CHEMISTRY METHOD 10/26/2024 1:05 PM EST [facility] Mean Bld Glu Estim. 128 mg/dL LAB CHEMISTRY METHOD 10/26/2024 1:05 PM EST [facility] Blood Venous blood specimen / Unknown Venipuncture / Unknown 10/26/2024 6:38 AM EST 10/26/2024 6:46 AM EST Ghazal EATON LAB BLOOD ORDERABLES Final Re sult Performing Organization Address City/[facility]/ZIP Co de Phone Number [facility] [address] [place] [address], [place] [phone] from Last 3 Months or Most Recently Relevant to Health Maintenance Insurance * Guarantor: Estephania Bill Account Type Relation to Patient Date of Phone Billing Address Personal/Family Self 1960 [address] [place] [address] [place] Advance Directives Documents on File Type Date Recorded 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
--- OUTSIDE RECORDS SUMMARY | 2025-03-02 12:13 | XMS_ITS | Clinical Summary ---
Author Organization [facility] Address [address] [place] [address] Phone Care Team Providers Care Electrical Engineer Name Role Phone Kenny Kruse Primary Care Provider [phone] Allergies Active Allergy Reactions Criticality Noted Date Comments Iodinated Contrast Media Low 09/03/2022 Other reaction(s): vomit, dizziness, bm incontinence. No anaphylaxis. Medications albuterol (2.5 MG/3ML) 0.083% nebulizer solution INHALE 3 ML EVERY 8 HOURS NEEDED 30 3 Active amLODIPine (NORVASC) 5 MG tablet Take 5 mg by mouth 1 (one) time each day 3 Active Aspirin Low Dose 81 MG EC tablet TAKE 1 TABLET BY MOUTH EVERY DAY--NOT COVERED 3 Active carvedilol (COREG) 25 MG tablet TAKE 1 TABLET BY MOUTH EVERY DAY IN THE MORNING AND IN THE EVENING WITH MEALS 3 Active clopidogrel (PLAVIX) 75 MG tablet Take 75 mg by mouth 1 (one) time each day 3 Active Jardiance 10 MG tablet Take 1 tablet by mouth 1 (one) time each day 3 Active famotidine (PEPCID) 20 MG tablet TAKE 1 TABLET BY MOUTH EVERY DAY AT BEDTIME NEEDED FOR 90 DAYS 3 Active ferrous sulfate 325 (65 Fe) MG tablet TAKE 1 TABLET BY MOUTH EVERY DAY FOR 30 DAYS (NOT COVERED) 3 Active folic acid (FOLVITE) 1 MG tablet Take 1,000 mcg by mouth 1 (one) time each day 3 Active furosemide (LASIX) 20 MG tablet TAKE 1 TABLET (20 MG TOTAL) BY MOUTH ONE TIME EACH DAY 3 Active gabapentin (NEURONTIN) 800 MG tablet Take 800 mg by mouth in the morning and 800 mg at noon and 800 mg in the evening. 3 Active Mavyret 100-40 MG tablet TAKE THREE TABLETS BY MOUTH ONCE DAILY 3 Active hydroxychloroqui ne (PLAQUENIL) 200 MG tablet Take 200 mg by mouth 1 (one) time each day 3 Active meclizine (ANTIVERT) 25 MG tablet TAKE 1 TABLET NEEDED FOR DIZZINESS ORALLY ONCE A DAY 30 DAYS ORALLY EVERY 12 HRS 15 DAYS 3 Active meloxicam (MOBIC) 15 MG tablet TAKE 1 TABLET BY MOUTH EVERY DAY NEEDED FOR PAIN ONCE A DAY FOR 15 DAYS 3 Active predniSONE (DELTASONE) 5 MG tablet Take 5 mg by mouth 1 (one) time each day with food 3 Active Entresto 97-103 MG per tablet TAKE 1 TABLET BY MOUTH IN THE MORNING AND BEFORE BEDTIME 3 Active spironolactone (ALDACTONE) 25 MG tablet TAKE 1 TABLET BY MOUTH 1 TIME EACH DAY. 3 Active Stiolto Respimat 2.5-2.5 MCG/ACT aerosol solution inhaler INHALE 2 PUFF BY INHALATION ROUTE EVERY DAY AT THE SAME TIME EACH DAY 3 Active traZODone (DESYREL) 150 MG tablet TAKE 1 TABLET BY MOUTH EVERYDAY AT BEDTIME 3 Active acetaminophen (TYLENOL) 325 MG tablet every 4 hours Active atorvastatin (LIPITOR) 40 MG tablet 1 (one) time each day at the same time 3 Active budesonide-formo terol (Symbicort) 160-4.5 MCG/ACT inhaler every 12 hours 2 Active butalbital-aceta minophen-caffein e (FIORICET) 50-325-40 MG per tablet Take 1 tablet by mouth every 30 minutes as needed 3 Active DULoxetine (CYMBALTA) [address] capsule Take 30 mg by mouth in the morning. 3 Active isosorbide mononitrate (IMDUR) 30 MG 24 hr tablet Take 30 mg by mouth in the morning. Active megestrol (MEGACE) 40 MG tablet Take 40 mg by mouth in the morning. 3 Active omeprazole (PriLOSEC) [address] capsule Take 40 mg by mouth in the morning. Active tiotropium (SPIRIVA) 18 MCG per inhalation capsule Place 18 mcg into inhaler and inhale in the morning. Active Cholecalciferol (Vitamin D) 50 MCG (1999 UT) capsuleIndicatio ns:Vitamin D deficiency, not otherwise specified Take 1 capsule by mouth 1 (one) time each day 90 capsule 3 3 Active Active Problems Problem Noted Date Diagnosed [...] Overview (08/20/2023): I25.10: Atherosclerotic heart disease of [place] coronary artery without angina pectoris Atherosclerosis of [...] drink = 0.6 oz pur e alcohol) Comments Unknown Sex and Gender Information Value [...] 3 - PCV13 ) 12/24/1979 Influenza Vaccine (Season Ended) 2025 Insurance [facility] Care Teams Electrical Engineer Relationship Specialty Start Date End Date Kenny Kruse [address] [place] [address] PCP - General Family Medicine 08/20/23
--- OUTSIDE RECORDS SUMMARY | 2025-03-02 12:14 | XMS_ITS | Encounter Summary ---
Demographics Address [address] [place] [address] Mobile Phone Work Phone Email Address Preferred Language en Marital Status Zoroastrian Affiliation Unknown Race Other Race Ethnic Group Unknown Author Organization [employer] [facility] Address [address] [facility] [address] [place] [address] Care Team Providers Care Cook Cold Meat Name Role Phone Sheree Strong NP Primary Care Provider [phone] Reason for Visit * Reason Onset Date Comments PT-1 01/11/2025 Encounter Details Date Type Department Care Team ([facility] st Contact Info) Description 01/11/2025 Telephone [facility] [address] [place], [place] [phone] Sheree Strong, LISHA [address] [place] [address] PT-1 Social History Tobacco Use Types Packs/Day Years [...] Pests such as bugs, ants, or mice;Lead Katie or Pipes;Inadequate heat 09/06/2024 Food Insecurity Answer [...] encounter Miscellaneous Notes * Telephone Encounter - Jim Ramirez - 01/11/2025 2:23 PM EDT Patient calling requesting PT1 Home Address verified: Y/N: Yes Provider name or facility name[facility] [address] [facility] [address] Escort needed: Y/N: No Do you have a wheelchair: Y/N: No Visits: (4) ( x monthly) documented in this encounter Plan of Treatment Upcoming Encounters Date Type Department Care Team (Late st Contact Info) Description 04/07/2025 10:15 AM EDT Office Visit [facility] [address] [place] [address] Sheree Strong NP [address] [place] [address] 07/06/2025 1:30 PM EDT Office Visit [facility] OPTOMETRY [address] [place] [address] Martine Benavidez, OD [address] [place] [address] documented as of this encounter Visit Diagnoses Not on filedocumented in this encounter Additional Health Concerns Assessment Noted Time PHQ-9 Depression Total Score: 17 024 2:44 PM EST documented as of this encounter Care Teams Cook Cold Meat Relationship Specialty Start Date End Date Sheree Strong NP [address] [place] [address] PCP - General Family Medicine 09/06/24 documented as of this encounter
--- OUTSIDE RECORDS SUMMARY | 2025-03-02 12:14 | XMS_ITS | Encounter Summary ---
Author Organization [facility] Address [address] [place] [address] Phone Care Team Providers Care Trim Carpenter Name Role Phone Kenny Kruse Primary Care Provider Encounter Details Date Type Department Care Team (Late st Contact Info) Description 12/05/2019 Hospital/ED/SNF/HH Visit [facility] [address] [place] [address] Provider, MD Maria Isabel [address] [place] [address] Social History Tobacco Use Types Packs/Day [...] on filedocumented in this encounter Care Teams Trim Carpenter Relationship Specialty Start Date End Date Kenny Kruse [address] [place] [address] PCP - General Family Medicine 08/20/23 documented as of this encounter
--- OUTSIDE RECORDS SUMMARY | 2025-03-02 12:14 | XMS_ITS | Encounter Summary ---
Demographics Address [address] [place] [address] Mobile Phone Work Phone Email Address Preferred Language en Marital Status Yarsani Affiliation Unknown Race Other Race Ethnic Group Unknown Author Organization [employer] Address [address] [facility] 7t [place] [address] Care Team Providers Care Saddle Tree Stitcher Name Role Phone Sheree Strong NP Primary Care Provider [phone] Reason for Visit * Reason Comments Med Refill Encounter Details Date Type Department Care Team (Late st Contact Info) Description 07/23/2024 Refill [facility] [address] [place] [phone] Emma De La Cruz ANP [address] [place] [address] Chronic obstructive pulmonary disease, unspecified COPD type [...] Description 04/07/2025 10:15 AM EDT Office Visit [facility] [address] [place] [address] Sheree Strong NP [address] [place] [address] 07/06/2025 1:30 PM EDT Office Visit [facility] [address] [place] [address] [phone] Martine Benavidez, OD [address] [place] [address] documented as of this encounter Visit Diagnoses Diagnosis Chronic obstructive pulmonary disease, unspecified COPD type (CMS/[facility]) documented in this encounter Care Teams Saddle Tree Stitcher Relationship Specialty Start Date End Date Sheree Strong NP [address] [place] [address] PCP - General Family Medicine 09/06/24 documented as of this encounter
--- OUTSIDE RECORDS SUMMARY | 2025-03-02 12:14 | XMS_ITS | Clinical Summary ---
Demographics Address [address] [place] [address] Mobile Phone Work Phone Email Address Preferred Language en Marital Status Confucianism Affiliation Unknown Race Other Race Ethnic Group Unknown Author Organization [employer] Address [address] [facility] 7t [place] [address] Care Team Providers Care Labor Representative Name Role Phone Sheree Strong NP Primary Care Provider [phone] Allergies Active Allergy Reactions Criticality Noted Date [...] per day. 30 capsule 2 5 Active carvedilol (Coreg) 12.5 MG tablet Take 1 tablet (12.5 mg) by mouth with breakfast and with evening meal. 60 tablet 11 5 01/07/20 26 Active acetaminophen (Tylenol Extra Strength) 500 MG tablet Take 1 tablet (500 mg) by mouth every 8 (eight) hours if needed for moderate pain. 90 tablet 2 5 02/06/20 25 Active Problems Problem Noted Date Diagnosed Date [...] CVA (cerebral vascular accident) 10/25/2024 Overview (01/06/2025): [facility] (10/19/24 - 10/25/24) Patient presented to the ED due to chest pain radiating to the left arm. While in the ED, patient developed left-sided numbness/tingling and left facial droop. Stroke alert was activated. Imaging showed chronic left vertebral occlusion, which was treated with tenecteplase Other chronic pain 09/11/2024 Assessment & Plan (09/11/2024 4:04 PM EST): Pt reports pain was treated in [place], once established with rheumatology and disease flares managed (not currently) will address adjunctive pain measure Pt in agreement with this plan Health care maintenance 09/11/2024 Assessment & Plan (09/11/2024 4:02 PM EST): Referrals to eye care, dental Mammogram ordered Former heavy tobacco smoker 05/20/2024 Overview (05/20/2024): Smoked from [id number], 1-1.5 PPD, 41-61.5 PYH Lupus erythematosus 03/15/2024 [...] cath 03/2020: Patent ALMENDAREZ-LAD, SVG-OM, SVG-PDA. Severe andreafski vessel CAD. Lexiscan 06/2021: Anterior ischemia. Cardiac [...] S/p CABG x3 2018 Coronary arteriosclerosis in andreafski artery 06/24 Overview (11/01/2024): I25.10: Atherosclerotic heart disease of [place] coronary artery without angina pectoris Atherosclerosis of [...] Encounters Date Type Department Care Team Description 02/16/2025 Telephone [facility] [address] [place] [address] Pramod, Megan, OD 02/09/2025 Travel 02/07/2025 Telephone [facility] [address] [place] [address] Sheree Strong NP 01/20/2025 Telephone [facility] [address] [place] [phone] Sheree Strong NP Durable Medical Equipment 01/13/2025 10:00 AM EDT Telemedicine [facility] [address] [place] [address] Cathy Lord, MARGARITA Hypertension, unspecified type [I10] 01/13/2025 Travel 01/11/2025 Patient Outreach [facility] [address] [place] [phone] Sheree Strong NP Care Coordination (CHW outreach for SDOH PT-1 and food needs-referral completed /) 01/11/2025 Telephone [facility] [address] [place] [phone] Sheree Strong NP PT-1 01/06/2025 10:30 AM EDT Office Visit [address] [address] Name, MD Dante Essential hypertension (Primary Dx); Type 2 diabetes mellitus with other specified complication, unspecified whether longterm insulin use (CMS/[facility]); Cerebrovascular accident (CVA), unspecified mechanism (CMS/[facility]); Migraine without aura and without status migrainosus, not intractable; YANICK (acute kidney injury) ([facility]); Right shoulder pain, unspecified chronicity 01/06/2025 Travel 01/05/2025 Telephone [facility] [address] [place] [phone] Mika Figueroa MA chart prep 12/30/2024 Population Health Risk Score [facility] () Department [address] [place] [phone] Provider, Population Health Generic 12/28/[address] [address] Sheree Strong NP Durable Medical Equipment (Pull-ups) 12/22/[address] [address] Alma Kumar MD No Show 12/21/[address] [address] Sheree Strong NP Chart Prep 12/06/[address] [address] Sheree Strong NP No Show from Last 3 Months Immunizations Immunization Administration Dates Next Due Hep A, Adult [...] Pests such as bugs, ants, or mice;Lead [place] or [place];Inadequate heat 09/06/2024 Food Insecurity Answer [...] 01/06/2025 10:41 AM E DT Respiratory Rate 01/06/2025 10:41 AM EDT Oxygen Saturation 99% [...] Description 04/07/2025 10:15 AM EDT Office Visit [facility] [address] [place] [address] Sheree Strong, LISHA [address] [place] [address] 07/06/2025 1:30 PM EDT Office Visit [facility] [address] [place] [address] Pramod, Martine, OD [address] [place] [address] Health Maintenance Due Date Last Done Comments CT Colonography 1960 Colonoscopy 1960 FIT 1960 FOBT 1960 Sigmoidoscopy 1960 Diabetes: Foot Exam 1970 Eye Exam 1970 Pneumococcal Vaccine: 50+ Years (1 of 2 - PCV) 12/24/1979 06/05/1997 Zoster Vaccines (1 of 2) 2010 RSV Patients and Patients Aged 60 years or older (1 - Risk 60-74 years 1-dose series) 2020 COVID-19 Vaccine (2023- season) 2024 Diabetes: Hemoglobin A1C 07/09/2025 025, 10/26/2024, 09/06/2024 Depression Screening 09/06/2025 09/06/2024, 09/06/20 24 [...] with other specified complication, unspecified whether intermediate project manager insulin use (CMS/[facility]) POCT GLUCOSE Routine 01/06/2025 10:48 AM EDT Type 2 diabetes mellitus with other specified complication, unspecified whether intermediate project manager insulin use (CMS/[facility]) PROTEIN CREATININE RATIO, URINE Routine 11/11/2024 11:44 AM EST Subareolar mass of right breast HPV DNA, LOW/HIGH RISK Routine 11:25 AM EST Subareolar mass of right breast PAP SMEAR Routine 11/09/2024 11:25 AM EST Routine cervical smear HEPATITIS C AB W/REFL TO HCV RNA, [...] EDT Narrative 01/10/2025 11:45 AM EDT ? [facility] ? [address] ?[place], [place] [address] ? Ultrasound Report ? Signed ? Patient: Fly,Estephania ?MR#: [id number] ?? [id number] ? : 1960 ?Acct:[id number] ? Age/Sex: 64 / F ?ADM Date: 01/10/25 ? Loc: HO.MAMMO ? Attending Dr: Oksana Munson CNM ? Ordering Physician: OKSANA MUNSON CNM ?? Date of Service: 01/10/25 ?? Procedure(s): US breast BI limited mamm only ?? Accession Number(s): [id number] ? cc: OKSANA MUNSON CNM; LUCIO GOOD [...] palpable lump ?? without underlying abnormality. ?? Burt marker in the upper inner breast at [...] of visit by the ?? technologist. ? US/ breast BI limited mamm only ?? IMPRESSION: [...] DD/ 1106 ? TD/TT: 01/10/25 1136 ? Adoption Services Manager: ? Procedure Note Jenny, Jules - 01/10/2025 [facility] [address] [place] [address] Ultrasound Report Signed Patient: Estephania BillMR#: [id number] : 1Acct:[id number] Age/Sex: 64 / FADM Date: 01/10/25 Loc: [facility]ranckMAMMO Attending Dr: Oksana Munson CNM Ordering Physician: OKSANA MUNSON CNM Date of Service: 01/10/25 Procedure(s): US breast BI limited mamm only Accession Number(s): [id number] cc: OKSANA MUNSON CNM; LUCIO GOOD NP [...] site of palpable lump without underlying abnormality. Burt marker in the upper inner breast at [...] Emperatriz Dey DO 01/10/2025 11:43 AM EDT RP Dictated By: Emperatriz Dey DO Signed By: <Electronically signed by Emperatriz Dey DO in OV> 01/10/25 1143 DD/ 1106 TD/TT: 01/10/25 1136 Adoption Services Manager: us Oksana Munson CNM IMG US PROCEDURES Edited Result - Final * BI Mammogram Diagnostic Tomosynthesis Bilateral (01/10/2025 11:00 AM EDT) Anatomical Region Laterality Modality Breast Bilateral Mammography 01/10/2025 11:0 0 AM EDT Narrative 01/10/2025 11:45 AM EDT ? [facility] ? [address] ?[place] [address] ?[phone] ? Mammography Report ? Signed ? Patient: Bill,Estephania ?MR#: [id number] ?? 771 ? : 1960 ?Acct:[id number] ? Age/Sex: 64 / F ?ADM Date: 01/10/25 ? Loc: HO.MAMMO ? Attending Dr: Oksana Munson CNM ? Ordering Physician: OKSANA MUNSON CNM ?Results: 2 ?? Benign Findings ? Date of Service: 01/10/25 ?Follow Up: 1 Year From Orig ?? inal Mammogram ? Procedure(s): MM tomosynthesis diagnostic BI ?? Accession Number(s): [id number] ? cc: OKSANA MUNSON CN; LUCIO GOOD NP ? EXAMINATION: ?? MM [...] palpable lump ?? without underlying abnormality. ?? Burt marker in the upper inner breast at [...] DD/ 1100 ? TD/TT: 01/10/25 1110 ? Adoption Services Manager: ? Procedure Note Jenny, Image - 01/10/2025 [facility] [address] [place] [address] [place] [address] Mammography Report Signed Patient: Estephania BillMR#: [id number] 771 : 1Acct:[id number] Age/Sex: 64 / FADM Date: 01/10/25 Loc: HO.MAMMO Attending Dr: Oksana Munson CNM Ordering Physician: OKSANA MUNSONesults: 2 Benign Findings Date of Service: 01/10/25Follow Up: 1 Year From [facility] Mammogram Procedure(s): MM tomosynthesis diagnostic BI Accession Number(s): [id number] cc: OKSANA MUNSON CNM; LUCIO GOOD NP [...] site of palpable lump without underlying abnormality. Burt marker in the upper inner breast at [...] 01/10/25 1143 DD/ 1100 TD/TT: 01/10/25 1110 Adoption Services Manager: us Oksana Munson CNM IMG BI PROCEDURES Edited Result - Final * XR Shoulder 2+ Views Right (01/06/2025 11:31 AM EDT) Anatomical Region Laterality Modality Upper Extremities, Shoulder Right Radi ographic Imaging 01/06/2025 11:3 1 AM EDT Narrative 01/06/2025 1:12 PM EDT ? [facility] ?[address] ?[place] [address] ?XRay Report ? Signed ? Patient: Bill,Estephania ?MR#: [id number] ?? 771 ? : 1960 ?Acct:[id number] ? Age/Sex: 64 / F ?ADM Date: 01/06/25 ? Loc: HO.HHCL ? Attending Dr: Dante Chamberlain MD ? Ordering Physician: NameDante MD ?? Date of Service: 01/06/25 ?? Procedure(s): XR shoulder RT min 2V ?? Accession Number(s): [id number] ? cc: NameDante MD ? EXAMINATION: ?? XR SHOULDER, RIGHT [...] wires no fully included ?? in the xmijl-an-hnxr. ? XR/XR shoulder RT min 2V ?? IMPRESSION: ?? No acute fracture or dislocation. Stable. ? Electronically signed by: ??Romel Iyer MD ??01/06/2025 01:09 PM ?? EDT RP ? Dictated By: ?Romel Schofield MD ? Signed By: ?<Electronically signed by Romel Tian MD in OV> ? 01/06/25 1309 ? DD/ 1131 ? TD/TT: 01/06/25 1200 ? Adoption Services Manager: ? Procedure Note Donotuseinterpreter, Image - 01/06/[address] [address] XRay Report Signed Patient: Estephania BillMR#: [id number] 771 : 1960cct:[id number] Age/Sex: 64 / FADM Date: 01/06/25 Loc: [facility] Attending Dr: Dante Chamberlain MD Ordering Physician: Dante Chamberlain MD Date of Service: 01/06/25 Procedure(s): XR shoulder RT min 2V Accession Number(s): [id number] cc: Dante Chamberlain MD EXAMINATION: XR SHOULDER, RIGHT CLINICAL INFORMATION: Chronic right shoulder pain with decreased ROM COMPARISON: November 14, 2016. TECHNIQUE: AP external rotation, Grashey, scapular Y, and axillary views of the right shoulder. FINDINGS: No acute cortical disruption or malalignment. No lytic or blastic lesions. No gross degenerative changes. Sternal wires no fully included in the ydoud-ke-onsn. XR/XR shoulder RT min 2V IMPRESSION: No acute fracture or dislocation. Stable. Electronically signed by: Romel Iyer MD 01/06/2025 01:09 PM EDT RP Dictated By: Romel Schofield MD Signed By: <Electronically signed by Romel Tian MDin OV> 01/06/25 1309 DD/ 1131 TD/TT: 01/06/25 1200 Adoption Services Manager: Dante Chamberlain MD IMG XR PROCEDURES Final Result * (ABNORMAL) Basic Metabolic Panel (01/06/2025 11:27 AM EDT) Sodium 137 135 - 145 mmol/L [facility] Potassium 4.1 3.3 - 5.1 mmol/L [facility] Chloride 105 96 - 108 mmol/L [facility] Carbon Dioxide 26 22 - 29 mmol/L [facility] Anion Gap 10(L) 12 - 20 [facility] Urea Nitrogen (BUN) 13 9 - 16 mg/dL [facility] Creatinine, Serum 0.87 0.5 - 1.4 mg/dL [facility] Estimated Glomerular Filt Rate >60 [facility] Comment:Chronic Kidney Disea se: Estimated GFR < 60 mL/min/1.69l8Brywxd Kidney Disease: Estimated GFR < 15 mL/min/1.73m2 Glucose 81 60 - 115 mg/dL [facility] Calcium 9.9 8.4 - 10.2 mg/dL [facility] Blood Venous blood specimen / Unknown 01/06/2025 11:27 AM EDT 01/06/2025 1:22 PM EDT us Dante Chamberlain MD LAB BLOOD ORDERABLES Final Resul t [facility] [address] [place] [phone] * POCT HGB A1C (01/06/2025 10:48 AM EDT) Hemoglobin A1C 5.9 4.0 - 6.0 % QC Media Lot # [id number] Lot# Expiration Date [id number] Blood 01/06/2025 10:4 8 AM EDT us Dante Chamberlain MD POINT OF CARE TEST ENTER/EDIT OR DERABLES Final Result * POCT Glucose (01/06/2025 10:48 AM EDT) Glucose Blood, POC 91 60 - 200 mg/dL QC Media Lot # [id number] Lot# Expiration Date 82,625 Blood Capillary blood specimen / Unknown 01/06/2025 10:48 AM EDT Dante Chamberlain MD POINT OF CARE TEST ENTER/EDIT OR DERABLES Final Result * Protein Creatinine Ratio, Urine (11/11/2024 11:44 AM EST) Creatinine, Urine 101.34 mg/dL [facility] Protein, Total, Random Urine 9 <12 mg/dL [facility] Protein/Creati nine Ratio, Ur 0.09 <0.2 [facility] Comment:The spot urine prote in:creatinine ratio may increase to 0.3during normal . 11/11/2024 11:4 4 AM EST 11/11/2024 12:16 PM EST Generic External Data Provider LAB URINE ORDERAB LES Final Result Performing Organization Address City/State/[facility] Co de Phone Number [facility] [address] [place] [phone] * HPV DNA, Low/High Risk (11/09/2024 11:25 AM EST) HPV High Risk Negative Negative [facility] HPV Genotype 16 Negative Negative [facility] HPV Genotype 18 Negative Negative [facility] Comment:HPV testing performe d at [facility] (CLIA#[id number]), [address] [place] [address].Testing for HPV was performed using the Julio [...] EST 11/09/2024 2:00 PM EST us Dori Rhodes DRIER UNLOADER LAB BLOOD ORDERABLES Final Res ult [facility] [address] [place] [phone] * Pap Smear (11/09/2024 11:25 AM EST) Swab Cervix uteri structure / Unknown 11/09/2024 11:25 AM EST 11/09/2024 2:00 PM EST Narrative [facility] - 11/15/2024 10:17 AM EST ----- ------- Name: Estephania Bill ?Age/Sex: 63/F ? : 1960 Unit#: [id number] ?? Attend : Dori Rhodes ?Re11/09/24 ?Status: DEP REF ? Location: HO.LNP ?Disch: ? ----- ------- SPEC : [id number] ? RECD: 11/09/24-1400 ? STATUS: ??SOUT ? REQ NUM: [id number] ? NICKI: 11/09/24-1125 ? SUBM DR: Dori Rhodes DRIER UNLOADER ? ENTERED: ??11/09/24-1407 ?SP TYPE: Pap Smr ?OTHR : ? [...] ? END OF REPORT ? Dori Rhodes DRIER UNLOADER LAB CYTOLOGY ORDERABLES Final Result Performing Organization Address [facility] Co de Phone Number [facility] [address] [place] [phone] * (ABNORMAL) Hepatitis C Antibody with Reflex to HCV, RNA, Quantitative, Real- Time PCR (09/06/2024 2:49 PM EST) Pathologist [facility] Hepatitis C Antibody Reactive( A) Nonreactive [facility] Comment:Presumptive evidence of antibodies to HCV. Blood Venous blood specimen / Unknown 09/06/2024 2:49 PM EST 09/06/2024 4:07 PM EST us Sheree Strong FORMING DEPARTMENT END FINDER LAB BLOOD ORDERABLES Final Resul t Performing Organization Address [facility] de Phone Number [facility] [address] [place] [phone] [phone] * HIV-1/2 Antigen and Antibodies, Fourth Generation, with Reflexes (09/06/2024 2:49 PM EST) Pathologist [facility] HIV AB/AG Nonreactive Nonreactive [facility] Comment:HIV-1 p24 Ag and/or HIV-1/HIV-2 Ab not detected.A test result that is nonreactive does not exclude thepossibility of exposure to or infection with HIV-1 and/orHIV-2. Nonreactive results in this assay for individualswith prior exposure to HIV-1 and/or HIV-2 may be due toantigen and antibody levels that are below the limit ofdetection of this assay.The Versium HIV Ag/Ab Combo assay result andsupplemental assay results should be interpreted inconjunction with the patient's clinical presentation,history and other laboratory results. If the results areinconsistent with clinical evidence, additional testing issuggested to confirm the result. Blood Venous blood specimen / Unknown 09/06/2024 2:49 PM EST 09/06/2024 4:07 PM EST us Sheree Strong NP LAB BLOOD ORDERABLES Final Resul t [facility] [address] [place] [phone] * (ABNORMAL) Lipid Panel, Standard (09/06/2024 2:49 PM EST) Triglycerides 78 <150 mg/dL [facility] Comment:Desirable Triglyceri de: less than 150 mg/dLBorderline High Triglyceride 150-199 mg/dLHigh Triglyceride: 200-499 mg/dLVery High Triglyceride: greater than or equal to 5OO mg/dL Cholesterol 96 <200 mg/dL [facility] Comment:Desirable Cholestero l: less than 200 mg/dLBorderline High Cholesterol: 200-239 mg/dLHigh Cholesterol: greater than 239 mg/dL LDL Cholesterol Calculated 41 <100 mg/dL [facility] Comment:Desirable LDL: less than 100 mg/dLNear Optimal/Above Optimal LDL: 110- 129 mg/dLBorderline High LDL: 130-159 mg/dLHigh LDL: 160-189 mg/dLVery High LDL: greater than or equal to 190 mg/dL HDL Cholesterol 40(L) >40 mg/dL [facility] Comment:Desirable HDL: great er than 40 mg/dL Note: This HDL assay may give artificially low results in patients with liver disease. Blood Venous blood specimen / Unknown 09/06/2024 2:49 PM EST 09/06/2024 4:07 PM EST us Sheree Strong FORMING DEPARTMENT END FINDER LAB BLOOD ORDERABLES Final Resul t [facility] [address] [place] [phone] [phone] from Last 3 Months or Most Recently Relevant to Health Maintenance Insurance * Guarantor: Estephania Bill Account Type Relation to Patient Date of Phone Billing Address Personal/Family Self 1960 [address] [place] [address] [facility] * Guarantor: Estephania Bill Account Type Relation to Patient Date of Phone Billing Address Personal/Family Self 1960 [address] [place] [address] * Guarantor: Estephania Bill Account Type Relation to Patient Date of Phone Billing Address Personal/Family Self 1960 [address] [place] [address] * Guarantor: Estephania Bill Account Type Relation to Patient Date of Phone Billing Address Personal/Family Self 1960 [address] [place] [address] Care Teams Labor Representative Relationship Specialty Start Date End Date Sheree Strong NP [address] [place] [phone] PCP - General Family Medicine 09/06/24
--- OUTSIDE RECORDS SUMMARY | 2025-03-02 12:14 | XMS_ITS | Encounter Summary ---
Demographics Address [address] [place] [address] Mobile Phone Work Phone Email Address Preferred Language en Marital Status Mormonism Affiliation Unknown Race Other Race Ethnic Group Unknown Author Organization [employer] Address [address] [facility] 7t [place] [address] Care Team Providers Care News Content Specialist Name Role Phone Sheree Strong NP Primary Care Provider [phone] Reason for Visit * Reason Onset Date Comments Nurse Triage 07/06/2024 Encounter Details Date Type Department Care Team (Late st Contact Info) Description 07/06/2024 Telephone [facility] [address] [place], [place] [phone] Emma De La Cruz ANP [address] [place] [address] Nurse Triage Social History Tobacco Use Types [...] Description 04/07/2025 10:15 AM EDT Office Visit [facility] [address] [place] [address] Sheree Strong NP [address] [place] [address] 07/06/2025 1:30 PM EDT Office Visit [facility] [address] [place] [address] Martine Benavidez, OD [address] [place] [address] documented as of this encounter Visit Diagnoses Not on filedocumented in this encounter Care Teams News Content Specialist Relationship Specialty Start Date End Date Sheree Strong NP [address] [place] [address] PCP - General Family Medicine 09/06/24 documented as of this encounter
== END 2025-03-02 11:25 | disposition home or self-care (01) ==
LOC: HO.HCS 11:01
PROVIDERS: PCP Nurse Practitioner Primary Care; Visit Provider Internal Medicine
DX: I25.10 Atherosclerotic heart disease of native coronary artery without angina pectoris (principal); Z95.1 Presence of aortocoronary bypass graft; I50.32 Chronic diastolic (congestive) heart failure; I10 Essential (primary) hypertension; I63.9 Cerebral infarction, unspecified
CPT/HCPCS: 99214

== ENCOUNTER → 2025-03-02 11:01 | Outpatient (BNVA) | payer MEDICAID, SELFPAY | PROVIDERS: PCP Nurse Practitioner Primary Care; Visit Provider Internal Medicine | DX: I25.10 Atherosclerotic heart disease of native coronary artery without angina pectoris (principal); I11.0 Hypertensive heart disease with heart failure; I50.32 Chronic diastolic (congestive) heart failure; Z95.1 Presence of aortocoronary bypass graft; Z79.899 Other long term (current) drug therapy; Z86.73 Personal history of transient ischemic attack (TIA), and cerebral infarction without residual deficits | CPT/HCPCS: 99212 ==

== ENCOUNTER 2025-04-07 10:53 | Outpatient (REF) | payer MEDICAID, SELFPAY ==
--- NOTE | ~2025-04-07 | XR_ITS ---
EXAMINATION: XR HIP, RIGHT CLINICAL INFORMATION: right SI joint pain, no trauma COMPARISON: None available. TECHNIQUE: Two views of the right hip. FINDINGS: Minimal degenerative changes present along the acetabular roof. Joint spaces preserved. Visualized portions of the right SI joint are unremarkable. XR/XR hip RT min 2V IMPRESSION: Mild degenerative changes right hip joint. Electronically signed by: Tariq Prado MD 04/07/2025 12:10 PM EDT
--- OUTSIDE RECORDS SUMMARY | 2025-04-07 11:18 | XMS_ITS | Clinical Summary ---
Author Organization [facility] Address [address] [place] [address] Phone Care Team Providers Care Anglesmith Name Role Phone Kenny Kruse Primary Care Provider [phone] Allergies Active Allergy Reactions Criticality Noted Date [...] Overview (08/20/2023): I25.10: Atherosclerotic heart disease of [place] coronary artery without angina pectoris Atherosclerosis of [...] (08/20/2023): Essential hypertension I10: Essential (primary) hypertension HIGH BLOOD PRESSURE: CARE INSTRUCTIONS LEARNING ABOUT HIGH BLOOD PRESSURE Iron deficiency [...] 12/24/1979 Influenza Vaccine (Season Ended) 2025 Insurance [facility] Care Teams Anglesmith Relationship Specialty Start Date End Date Kenny Kruse [address] [place] [address] PCP - General Family Medicine 08/20/23
[2025-04-07 12:30] LABS: Anion Gap 9 (12-20); Blood Urea Nitrogen 13 mg/dL (9-16); Calcium 9.7 mg/dL (8.4-10.2); Carbon Dioxide 27 mmol/L (22-29); Chloride 107 mmol/L (96-108); Estimated Glomerular Filt Rate 59; Glucose Random 89 mg/dL (60-115); Potassium 4.5 mmol/L (3.3-5.1); Sodium 138 mmol/L (135-145)
== END 2025-04-07 10:54 | disposition home or self-care (01) ==
LOC: HO.HHCL 10:53
PROVIDERS: PCP Nurse Practitioner Family; Visit Provider Nurse Practitioner Family
DX: M25.551 Pain in right hip (principal); I50.32 Chronic diastolic (congestive) heart failure
CPT/HCPCS: 36415; 73502; 80048

== ENCOUNTER → 2025-04-07 11:30 | Outpatient (BNV) | payer MEDICAID, SELFPAY | PROVIDERS: PCP Nurse Practitioner Family; Visit Provider Radiology Diagnostic Radiology | DX: M53.3 Sacrococcygeal disorders, not elsewhere classified (principal) | CPT/HCPCS: 73502 ==

== ENCOUNTER 2025-05-15 10:10 | Outpatient (REF) | payer MEDICAID, SELFPAY ==
--- OUTSIDE RECORDS SUMMARY | 2025-05-15 11:13 | XMS_ITS | Clinical Summary ---
Author Organization [facility] Address [address] [place] [address] Phone Care Team Providers Care Spectroscopist Name Role Phone Kenny Kruse Primary Care [...] Overview (08/20/2023): I25.10: Atherosclerotic heart disease of [place] coronary artery without angina pectoris Atherosclerosis [...] - PCV13 ) 12/24/1979 Influenza Vaccine (#1) 2025 Insurance [facility] Care Teams Spectroscopist Relationship Specialty Start Date End Date Kenny Kruse [address] [place] [address] PCP - General Family Medicine 08/20/23
--- OUTSIDE RECORDS SUMMARY | 2025-05-15 11:14 | XMS_ITS | Clinical Summary ---
Demographics Address [address] [place] [address] Mobile Phone Home Phone Work Phone Email Address Preferred Language en Marital Status Synagogue Affiliation Unknown Race Other Race Ethnic Group or Author Organization [facility] Address [address] [place] [address] Phone Care Team Providers Care Mult Au Matic Operator Name Role Phone Sheree Strong BISHOP Primary Care Provider [phone] Allergies No known active allergies Medications budesonide-form [...] Date Noncompliance 10/29/2024 HTN (hypertension) 10/29/2024 Stroke ([facility] [place], [facility] [place]28) 10/25/2024 Diabetes ([facility] [place]24, [facility] V28) 10/25/2024 CVA (cerebral vascular accident) ([facility], [facility] V[facility]) 10/25/2024 Resolved Problems Problem Noted Date [...] 86 11/08/2024 9:00 AM EST Temperature 36.4 C (97.6 F) 11/08/2024 9:00 AM EST Respiratory Rate 16 11/08/2024 9:00 AM EST [...] Care Team (Late st Contact Info) Description 06/20/2025 9:00 AM EDT Consult Orthopedic Surgery - [place] [address] [id number] Valentin Saldivar, DPM [address] [address] Health Maintenance Due Date Last Done Comments COVID-19 Vaccine (#1) 1965 Diabetes: Annual Foot Exam 1970 Diabetes: Annual Retina Eye Exam 1970 Pneumococcal Vaccine: 50+ Years (1 of 2 - PCV) 12/24/1979 Cervical Cancer Screening: Pap Smear 1981 Zoster Vaccines (1 of 2) 2010 Breast Cancer Screening 08/26/2020 08/26/2018 RSV Immunization Adult Patients (1 - Risk 60-74 years 1-dose series) 2020 DTaP,Tdap,and Td Vaccines (3 - Td or Tdap) 01/10/2023 01/10/2013, 04/24/2006 Diabetes: Annual Urine Albumin-Creatinine Ratio (uACR) 11/16/2024 11/16/2023, 11/16/2023, 07/14/2023 Diabetes: Blood Sugar Control Test (HGBA1C) 04/25/2025 10/26/2024, 09/06/2024 Influenza Vaccine (#1) 2025 , 08/02/2015, 10/16/2014, Additional history exists Diabetes: Annual GFR (Glomerular Filtration Rate) 11/03/2025 11/03/2024, 10/29/2024, 10/26/2024, Additional history exists Hypertension/CHF/CAD Annual BMP Blood Test 11/03/2025 11/03/2024, 10/29/2024, 10/26/2024, Additional history exists Social Influencers of Health Screening 11/07/2025 11/07/2024 Colorectal Cancer Screening: FIT-DNA (Cologuard) 10/04/2026 10/04/2023, 10/04/2023 Cholesterol Screening (Lipid Panel) 09/06/2029 09/06/2024, 07/08/2023 Hepatitis A Vaccines Aged Out 04/17/2015, 10/05/20 13 No longer eligible based on patient's age to complete this topic Hepatitis B Vaccines Completed 12/18/2016, 03/14/2016, 08/02/2015 HIV Screening Completed 09/06/2024 Hepatitis C Screening Completed 09/06/2024 Depression Screening Completed 11/07/2024 HIB Vaccines Aged Out No longer eligi [...] LAB CHEMISTRY METHOD 11/03/2024 2:45 PM EST [facility] Potassium 4.1 3.5 - 5.5 mmol/L LAB CHEMISTRY METHOD 11/03/2024 2:45 PM EST [facility] Chloride 102 96 [...] [facility] Comment:Calculation based on the Chronic Kidney Disease Epidemiology Collaboration (CKD-EPI) equation refit without adjustment for race. BUN/Creatinine Ratio 28.8 LAB [...] LAB CHEMISTRY METHOD 11/03/2024 2:45 PM EST [facility] Blood Venous blood specimen / Unknown Venipuncture / Unknown 11/03/2024 2:02 PM EST 11/03/2024 2:10 PM EST Fernanda EATON LAB BLOOD ORDERABLES Final Res ult Performing Organization Address City/[facility]/ZIP Co de Phone Number [facility] [address] [place] [address], [place] [phone] * Hemoglobin A1c (10/26/2024 6:38 AM EST) Hemoglobin A1C 6.1 <6.5 % LAB CHEMISTRY METHOD 10/26/2024 1:05 PM EST [facility] Mean Bld Glu Estim. 128 mg/dL LAB CHEMISTRY METHOD 10/26/2024 1:05 PM EST [facility] Blood Venous blood specimen / Unknown Venipuncture / Unknown 10/26/2024 6:38 AM EST 10/26/2024 6:46 AM EST Ghazal EATON LAB BLOOD ORDERABLES Final Re sult Performing Organization Address [facility]/ZIP Co de Phone Number [facility] [address] [place] [address], [place] [phone] from Last 3 Months or Most Recently Relevant to Health Maintenance Insurance MEDICAID - [place] Advance Directives Documents on File Type Date Recorded Patient Vp [employer] Expl anation Advance Directives and Living Will [...] Agents on File Name Relationship Healthcare Agent [facility] p Communication Dominguez Bill [facility] Health Care Agent Care Teams Mult Au Matic Operator Relationship Specialty Start Date End Date Sheree Strong FNP [address] [place] [phone] PCP - General Nurse Practitioner 10/24/24
[2025-05-15 11:32] LABS: MANUAL DIFF FLAG NO
[2025-05-15 11:42] LABS: Hematocrit 40.7 % (37.0-47.0); Hemoglobin 12.4 g/dl (12.0-16.0); Imm Gran Abs Auto 0.01 X10*3/uL (0.00-0.03); Imm Gran Pct Auto 0.2 % (0.0-0.4); Lymphocytes Absolute Auto 2.1 X10*3/uL (1.2-4.9); Mean Corpuscular HGB Conc 30.5 g/dl (31.0-35.0); Mean Corpuscular Hemoglobin 24.8 pg (27.0-33.0); Mean Corpuscular Volume 81.6 fL (80.0-98.0); NRBC Abs Auto 0.000 X10*3/uL (0.0-0.012); NRBC Pct Auto 0.0 /100WBC (0.0-0.2); Platelet Count 208 X10*3/uL (160-400); Red Blood Count 4.99 X10*6/uL (4.20-5.50); White Blood Count 4.8 X10*3/uL (4.8-10.8)
[2025-05-15 12:07] LABS: Hemoglobin A1C 122.7064 umol/L; Total Hemoglobin (HGBA1C) 3156.9797 umol/L
[2025-05-15 12:22] LABS: Alanine Aminotransferase 12 U/L (0-31); Albumin Level 4.4 g/dL (3.5-5.0); Alkaline Phosphatase 73 U/L (39-117); Anion Gap 9 (12-20); Aspartate Amino Transferase 24 U/L (5-31); Blood Urea Nitrogen 11 mg/dL (9-16); Calcium 9.4 mg/dL (8.4-10.2); Carbon Dioxide 27 mmol/L (22-29); Chloride 110 mmol/L (96-108); Cholesterol 123 mg/dL (<200); Estimated Glomerular Filt Rate 59; HDL Cholesterol 48 mg/dL (>40); Potassium 4.2 mmol/L (3.3-5.1); Sodium 142 mmol/L (135-145); Total Protein 8.0 g/dL (6.5-8.0); Triglycerides 120 mg/dL (<150)
== END 2025-05-15 10:11 | disposition home or self-care (01) ==
LOC: HO.HHCL 10:10
PROVIDERS: PCP Nurse Practitioner Family; Referring Provider Internal Medicine Hypertension Specialist; Visit Provider Nurse Practitioner Family
DX: Z00.00 Encounter for general adult medical examination without abnormal findings (principal); N18.9 Chronic kidney disease, unspecified
CPT/HCPCS: 36415; 80053; 80061; 83036; 85025

== ENCOUNTER 2025-06-29 11:25 | Outpatient (AMB) | payer MEDICAID, SELFPAY ==
--- NOTE | 2025-06-29 11:49 | MHC.OFFVIS ---
Vital Signs 06/29/25 11:50 Height 5 ft 3 in Weight 103 lb 9.876 oz BMI 18.4 BP 128/68 Blood Pressure Location Lt brachial Position Sitting Pulse 74 Pulse Source Monitor Intake Visit Reasons: [facility] dc Allergies cat dander (CAT DANDER) Allergy (Mild, Verified 11/14/24 11:05) ITCHY EYES Medication List - Last Reviewed 06/29/25 by Mariah Vallejo albuterol sulfate 90 mcg/actuation (Ventolin HFA) 2 puffs inhalation Q6H PRN amlodipine 10 mg PO DAILY ascorbic acid (vitamin C) 250 mg PO DAILY aspirin 81 mg PO DAILY atorvastatin 40 mg PO DAILY budesonide-formoterol 160-4.5 mcg/actuation (Symbicort) 2 puffs inhalation BID carvedilol (Coreg) 25 mg PO BID clopidogrel 75 mg PO DAILY docusate sodium 100 mg PO BID duloxetine 60 mg PO DAILY empagliflozin (Jardiance) 10 mg PO DAILY ferrous sulfate (FeroSul) 325 mg PO DAILY gabapentin 400 mg PO TID hydralazine 25 mg PO TID nitroglycerin 0.4 mg sublingual Q5M PRN oxycodone 5 mg PO BID PRN pantoprazole 40 mg PO DAILY@0630 sacubitril-valsartan 97-103 mg (Entresto) 1 tab PO BID trazodone 150 mg PO BEDTIME umeclidinium 62.5 mcg/actuation (Incruse Ellipta) 1 inh inhalation DAILY HPI Comments Details: [place] returns for follow-up. She was seen last year in consultation. Prior to that, she has seen Dr. Patricio for some time and then was in [place]. Her care is quite scattered between different hospitals and providers and hence very difficult to put all this together. Anyway, to recall she has a history of coronary disease going back many years. History of LAD stenting around 2009, followed by renal artery stenting. For the last few years, she has been in [place]. She underwent coronary artery bypass surgery in [place] in 2019. ALMENDAREZ to LAD, saphenous vein to PDA and OM per PCP note. Subsequently, she has had 3 further catheterizations, most recently in 2023. Then it seems that she had a stroke admission to [facility] October of 2024. Recovered from that. Then further hospitalizations again in the last few months to [facility] for various reasons. Currently, she states she is again back to her usual self. She is not having any chest pain or any clear cardiac symptoms. [facility] Medical History (Updated 03/02/25 @ 11:50 by Mynor Ramos MD) Fibromyalgia Insomnia Former heavy tobacco smoker Iron deficiency Abnormal mammogram Osteopenia Lupus (systemic lupus erythematosus) Hypercholesterolemia GERD (gastroesophageal reflux disease) COPD (chronic obstructive pulmonary disease) Polyneuropathy Occlusion and stenosis of left vertebral artery CVA (cerebral vascular accident) Heart failure with recovered ejection fraction (HFrecEF) Arthritis CKD (chronic kidney disease) COPD with asthma Hyperlipidemia Hypertension Atherosclerotic cardiovascular disease Diabetes Surgical History Status post aorto-coronary artery bypass graft History of open heart surgery Family History Father Heart attack Social History Household Members: Family Housing: House Alcohol intake: never Patient Tobacco Use Status: Never used Tobacco Substance Use Type: Marijuana service: No Review of Systems Const Denies weakness ENT Denies dizziness Card Denies chest pain, Denies chest pain with activity, Denies syncope, Denies rapid heart rate, Denies pedal edema, Denies edema, Denies leg edema, Denies lightheadedness, Denies palpitations, Denies dyspnea, Denies dyspnea on exertion and Denies orthopnea Resp Denies cough, Denies dyspnea and Denies dyspnea on exertion GI Denies hematochezia and Denies change in stool character Musc Denies abnormal gait, Denies muscle cramps, Denies muscle weakness, Denies numbness, Denies radiating pain into limb and Denies tingling Neuro Denies abnormal gait, Denies dizziness, Denies syncope, Denies numbness, Denies tingling and Denies weakness Endo Denies palpitations Physical Exam Vital Signs: Last Vital Signs Pulse 74 06/29/25 11:50 BP 128/68 06/29/25 11:50 BMI result Body Mass Index 18.4 Const General: comfortable and no acute distress Orientation/consciousness: patient oriented x3 HEENT Other: Unremarkable Head: Yes normal to inspection Neck Neck: Yes normal visual inspection Chest Chest palpation & inspection: normal inspection of the chest Resp Auscultation: clear to auscultation bilaterally Cardio Palpation: normal PMI Heart sounds: S1 normal heart sound present, S2 normal heart sound present, no gallops, no murmurs and no rubs GI Palpation (GI): Soft to palpation Back/Spine/Pelvis Other: unremarkable Skin General skin exam: no rashes or lesions noted Neuro General: patient oriented x3 Extrem General: Yes normal to inspection Psych Mental Status: mental status grossly normal Office Procedures EKG Details: EKG with underlying sinus rhythm at 74/Min; sinus arrhythmias; PVCs; incomplete right bundle-branch block; cannot exclude old septal infarct[place] [id number], Complete Assessment & Plan Assessment & Plan (1) Atherosclerotic cardiovascular disease: Code(s): I25.10 - Atherosclerotic heart disease of [place] coronary artery without angina pectoris Category: Medical (2) Status post aorto-coronary artery bypass graft: Code(s): Z95.1 - Presence of aortocoronary bypass graft Category: Surgical (3) Heart failure with recovered ejection fraction (HFrecEF): Code(s): I50.32 - Chronic diastolic (congestive) heart failure Category: Medical (4) Hypertension: Code(s): I10 - Essential (primary) hypertension Category: Medical (5) CVA (cerebral vascular accident): Code(s): I63.9 - Cerebral infarction, unspecified Category: Medical Plan Pertinent data reviewed. Most recent cardiac catheterization is from 2023-that shows multivessel CAD with patent ALMENDAREZ/saphenous grafts. Severe [place] vessel disease. [place] [facility]reported to have grossly normal LVEF; no overt abnormalities. In 2021, LVEF was apparently 30-35%. Overall, established coronary disease with multiple interventions including bypass surgery but no active symptoms. She remains optimal medical therapy including aspirin, Plavix and statins. May be reasonable to continue the dual antiplatelet therapy because of extensive vascular disease. With regard to the heart failure history, listed to be on beta-blockers, Entresto, and Jardiance. Spironolactone not in his list anymore. With regard to the stroke history, she seems stable. Most recently, evaluated [facility]. Described to have unchanged occlusion of the left vertebral artery at origin, moderate narrowing in the right vertebral artery origin. Moderate narrowing in the right proximal cervical internal carotid artery. MRI with chronic cerebellar infarcts. Total time spent including review of [facility] hospitalization data, counseling, documentation, coordination of care-44 minutes. Coding Level of Care Code Est Pt Level 4 (90843) Complex EM visit Add On G2211 Diagnoses Atherosclerotic cardiovascular disease I25.10 Status post aorto-coronary artery bypass graft Z95.1 Heart failure with recovered ejection fraction (HFrecEF) I50.32 Hypertension I10 CVA (cerebral vascular accident) I63.9 CPT Codes EKG - CPT: 02450-[id number], Complete ([id number])
[2025-06-29 11:50] VITALS: BP 128/68; PULSE 74; BMI 18.4
--- OUTSIDE RECORDS SUMMARY | 2025-06-29 15:48 | XMS_ITS | Encounter Summary ---
Demographics Address [address] [place] [address] Mobile Phone Home Phone Email Address Preferred Language en Marital Status Restorationism Affiliation Unknown Race Other Race Ethnic Group Unknown Author Organization [employer] Address [address] [facility] [address] [place] [address] Care Team Providers Care Slasher Name Role Phone Sheree Strong NP Primary Care Provider [phone] Eleonora Quigley RN Unavailable [phone] Cheryl Mead Unavailable Reason for Referral * Consultation (Routine) - Authorized Specialty Diagnoses / Procedures Referred By Jackelyn tobin Referred To Contact Orthopaedic Surgery Diagnoses Right hip pain Shirlene Cortes NP [address] [place] [address] Phone: tel: fax: [facility] [address] [place] [address] [place] [address] Phone: tel: fax: Referral ID Status Reason Start Date Expiration Date Visits Requested Visits Authorized [id number] Authorized Specialty Services Required 06/09/2025 06/09/2026 6 6 Encounter Details Date Type Department Care Team (Late st Contact Info) Description 05/03/2025 Orders Only [facility] [address] [place], [place] [phone] Shirlene Cortes NP [address] [place], [place] [phone] Right hip pain (Primary Dx) Social History Tobacco Use Types Packs/Day Years Used Date Smoking Tobacco: Former Cigarettes Q uit: 1977 Smokeless Tobacco: Never Depression Answer Date Recorded Patient Health Questionnaire-9 Score 21 04/07/2025 Patient Health Questionnaire-9 Score 21 04/07/2025 Last PHQ-9: Questionnaire Data Not on file 0 04/07/2025 Housing Stability Answer Date Recorded What is your housing situation today? I have chelsey briceño 09/06/[address] you li ve. Do you have problems with any of the following? Pests such as bugs, ants, or mice;Lead [place] or [place];Inadequate heat 09/06/2024 Food Insecurity Answer [...] Answer Date Recorded Patient Health Questionnaire-2 Score 5 04/07/2025 Internet Access Answer Date Recorded Internet Access [...] Care Team (Late st Contact Info) Description 07/03/2025 11:30 AM EDT Office Visit [facility] [address] [place] [address] Sheree Strong NP [address] [place] [address] 08/11/2025 1:00 PM EDT Office Visit [facility] [address] [place], [place] [phone] Martine Benavidez, OD [address] [place] [address] Scheduled Referrals Name Type Priority Associated Diagnoses Order Schedule Referral to Orthopaedic Surgery Outpatient Referral Routine Right hip pain Expected: 05/03/2025 (Approximate), Expires: 05/03/2026 documented as of this encounter Visit Diagnoses Diagnosis Right hip pain- Primary Pain in joint, pelvic region and thigh documented in this encounter Additional Health Concerns Assessment Noted Time PHQ-9 Depression Total Score: 21 025 10:47 AM EDT documented as of this encounter Care Teams Slasher Relationship Specialty Start Date End Date Sheree Strong NP [address] [place], [place] [phone] PCP - General Family Medicine 09/06/24 Eleonora Quigley, MARGARITA [address] [place] [address] Registered Nurse Family Medicine 05/16/25 Cheryl Mead 05/16/25 documented as of this encounter
--- OUTSIDE RECORDS SUMMARY | 2025-06-29 15:48 | XMS_ITS | Encounter Summary ---
Demographics Address [address] [place] [address] Mobile Phone Home Phone Email Address Preferred Language en Marital Status Holiness Affiliation Unknown Race Other Race Ethnic Group Unknown Author Organization [employer] Address [address] [facility] [address] [place] [address] Care Team Providers Care Pe Manager Name Role Phone Sheree Strong NP Primary Care Provider [phone] Eleonora Quigley RN Unavailable [phone] Cheryl Mead Unavailable Reason for Visit * Reason Onset Date Comments Medication Question 05/02/2025 Encounter Details Date Type Department Care Team ([facility] st Contact Info) Description 05/02/2025 Telephone [facility] [address] [place], [place] [phone] Sheree Strong NP [address] [place], [place] [phone] Medication Question Social History Tobacco Use Types Packs/Day Years [...] Pests such as bugs, ants, or mice;Lead [place] or [place];Inadequate heat 09/06/2024 Food Insecurity Answer [...] encounter Miscellaneous Notes * Telephone Encounter - Shirlene Cortes NP - 05/03/2025 1:40 PM EDT Referral placed * Telephone Encounter - Daniella Blackwood RN - 05/03/2025 12:14 PM EDT Images from the original note were not included. TC placed to pt to inform and advise of below provider message. Advised pt per provider, if there is a change in her pain or lack of response to treatment, she should be re-evaluated. Pt verbalized understanding. Pt advised no team availability today or tomorrow. Advised pt to come to [facility] for evaluation. Pt verbalized understanding. Pt would like referral placed for ortho. Message forwarded to provider to review and advise. Shirlene Cortes NP to Me (Selected Message) CT 05/03/25 12:11 PM Note If there is a change in her pain or lack of response to treatment, she should be re-evaluated. If she would like referral, I can do that. Thanks * Telephone Encounter - Shirlene Cortes NP - 05/03/2025 12:11 PM EDT If there is a change in her pain or lack of response to treatment, she should be re-evaluated. If she would like referral, I can do that. Thanks * Telephone Encounter - Daniella Blackwood RN - 05/03/2025 11:58 AM EDT TC placed to pt regarding cyclobenzaprine (Flexeril) 10 MG tablet and to advise of results and PCP recommendation. Advised pt per PCP, she has some arthritis. Advised PCP would like to send to her toortho. Pt agreeable to referral to ortho. Pt reports pain on right side of stomach x 1 month for which PCP prescribed medication cyclobenzaprine (Flexeril) 10 MG tablet at visit. Pt reports medication is not helping with pain and pt is requesting an alternative. Pt denies chest pain, SOB, fever, chills. Pt reports pain at 9/10. Advised pt message to be sent to provider for review. Advised pt to come to [facility] for evaluation for new or worsening symptoms. Pt agreeable to plan. Message forwarded to covering provider to review and advise. ----- Message from Sheree Strong sent at 04/07/2025 12:51 PM EDT ----- Regarding: x-ray Pls let pt know she has some arthritis, I would like to send to her to ortho- is that okay with pt?thanks ----- Message ----- From: Eriberto Ris Results In Sent: 04/07/2025 12:13 PM EDT To: Sheree Strong NP * Telephone Encounter - Jay Poole - 05/02/2025 1:43 PM EDT TC from patient reports being prescribed cyclobenzaprine (Flexeril) 10 MG tablet , that does not alleviate the pain . Pt requesting for pcp to prescribe alternative. documented in this encounter Plan of Treatment Upcoming Encounters Date Type Department Care Team (Late st Contact Info) Description 07/03/2025 11:30 AM EDT Office Visit [facility] [address] [place] [address] Sheree Strong, LISHA [address] [place] [address] 08/11/2025 1:00 PM EDT Office Visit [facility] OPTOMETRY [address] [place] [address] Martine Benavidez, OD [address] [place] [address] documented as of this encounter Visit Diagnoses Not on filedocumented in this encounter Additional Health Concerns Assessment Noted Time PHQ-9 Depression Total Score: 21 025 10:47 AM EDT documented as of this encounter Care Teams Pe Manager Relationship Specialty Start Date End Date Sheree Strong NP [address] [place] [address] PCP - General Family Medicine 09/06/24 Eleonora Quigley, MARGARITA [address] [place] [address] Registered Nurse Family Medicine 05/16/25 Cheryl Mead 05/16/25 documented as of this encounter
--- OUTSIDE RECORDS SUMMARY | 2025-06-29 15:48 | XMS_ITS | Encounter Summary ---
Demographics Address [address] [place] [address] Mobile Phone Home Phone Email Address Preferred Language en Marital Status Congregation Affiliation Unknown Race Other Race Ethnic Group Unknown Author Organization [employer] Address [address] [facility] [address] [place] [address] Care Team Providers Care Fuel Tank Sealer And Tester Name Role Phone Sheree Strong NP Primary Care Provider [phone] Eleonora Quigley RN Unavailable [phone] Cheryl Mead Unavailable Reason for Visit * Reason Comments Med Refill Encounter Details Date Type Department Care Team (Late st Contact Info) Description 06/24/2025 Refill [facility] [address] [place], [place] [phone] Sheree Strong, LISHA [address] [place], [place] [phone] Social History Tobacco Use Types Packs/Day Years [...] Pests such as bugs, ants, or mice;Lead [place] or [place];Inadequate heat 09/06/2024 Food Insecurity Answer [...] Description 07/03/2025 11:30 AM EDT Office Visit [facility] [address] [place] [address] Sheree Strong NP [address] [place] [address] 08/11/2025 1:00 PM EDT Office Visit [facility] OPTOMETRY [address] [place] [address] Pramod, Martine, OD [address] [place] [address] documented as of this encounter Visit Diagnoses Not on filedocumented in this encounter Additional Health Concerns Assessment Noted Time PHQ-9 Depression Total Score: 21 025 10:47 AM EDT documented as of this encounter Care Teams Fuel Tank Sealer And Tester Relationship Specialty Start Date End Date Sheree Strong NP [address] [place] [address] PCP - General Family Medicine 09/06/24 Eleonora Quigley RN [address] [place] [address] Registered Nurse Family Medicine 05/16/25 Cheryl Mead 05/16/25 documented as of this encounter
--- OUTSIDE RECORDS SUMMARY | 2025-06-29 15:48 | XMS_ITS | Encounter Summary ---
Demographics Address [address] [place] [address] Mobile Phone Home Phone Email Address Preferred Language en Marital Status Caodaism Affiliation Unknown Race Other Race Ethnic Group Unknown Author Organization [employer] Address [address] [place] [address] Care Team Providers Care Mirror Framer Name Role Phone Sheree Strong NP Primary Care Provider [phone] Eleonora Quigley RN Unavailable [phone] Cheryl Mead Unavailable Reason for Visit * Reason Onset Date Comments PT-1 06/27/2025 Encounter Details Date Type Department Care Team (Late st Contact Info) Description 06/27/2025 Telephone [facility] MEDICINE [address] [place], [place] [phone] Sheree Strong NP [address] [place], [place] [phone] PT-1 Social History Tobacco Use Types Packs/Day [...] Pests such as bugs, ants, or mice;Lead [place] or Pipes;Inadequate heat 09/06/2024 Food Insecurity Answer [...] encounter Miscellaneous Notes * Telephone Encounter - Kole Quigley - 06/28/2025 8:32 AM EDT CHW Kole Quigley, placed call to patient and LVM informing that PT1 was submitted as requested. * Telephone Encounter - Brandon Mead - 06/27/2025 4:26 PM EDT Patient calling requesting PT1 Home Address verified: Y/N: Yes Provider name or facility name: [facility] - Cardiology Facility Address: [address] [place] [address] [place] [id number] Escort needed: Y/N: No Do you have a wheelchair: Y/N: No If yes- Manual or electric: N/A (Cane/Walker) Visits: Once a month documented in this encounter Plan of Treatment Upcoming Encounters Date Type Department Care Team (Late st Contact Info) Description 07/03/2025 11:30 AM EDT Office Visit [facility] MEDICINE [address] [facility] [place] [id number] Sheree Strong NP [address] [place] [address] 08/11/2025 1:00 PM EDT Office Visit [facility] OPTOMETRY [address] [place] [address] Pramod, Martine, OD [address] [place] [address] documented as of this encounter Visit Diagnoses Not on filedocumented in this encounter Additional Health Concerns Assessment Noted Time PHQ-9 Depression Total Score: 21 025 10:47 AM EDT documented as of this encounter Care Teams Mirror Framer Relationship Specialty Start Date End Date Sheree Strong NP [address] [place] [address] PCP - General Family Medicine 09/06/24 Eleonora Quigley RN [address] [place] [id number] Registered Nurse Family Medicine 05/16/25 Cheryl Mead 05/16/25 documented as of this encounter
--- OUTSIDE RECORDS SUMMARY | 2025-06-29 15:48 | XMS_ITS | Encounter Summary ---
Demographics Address [address] [place] [address] Mobile Phone Home Phone Email Address Preferred Language en Marital Status Christian Affiliation Unknown Race Other Race Ethnic Group Unknown Author Organization [employer] Address [address] [facility] [address] [place] [address] Care Team Providers Care Hydrogenation Still Operator Name Role Phone Sheree Strong NP Primary Care Provider [phone] Eleonora Quigley RN Unavailable [phone] Cheryl Mead Unavailable Reason for Visit * Reason Onset Date Comments CHARTPREP 06/29/2025 Encounter Details Date Type Department Care Team (Late st Contact Info) Description 06/29/2025 Telephone [facility] MEDICINE [address] [place], [place] [phone] Sheree Strong NP [address] [place], [place] [phone] CHARTPREP Social History Tobacco Use Types Packs/Day Years [...] Pests such as bugs, ants, or mice;Lead [place] or Pipes;Inadequate heat 09/06/2024 Food Insecurity Answer [...] encounter Miscellaneous Notes * Telephone Encounter - Ez Bhatia [place] - 06/29/2025 2:25 PM EDT Chart Prep Labs: done except BMP order Images: done Referrals: appointment pending Vaccines due: Covid, Flu, PCV20, RSV, and Zoster Screenings: foot exam Overdue care gaps: A1c and Glucose documented in this encounter Plan of Treatment Upcoming Encounters Date Type Department Care Team (Late st Contact Info) Description 07/03/2025 11:30 AM EDT Office Visit [facility] MEDICINE [address] [place] [address] Sheree Strong, LISHA [address] [place] [address] 08/11/2025 1:00 PM EDT Office Visit [facility] OPTOMETRY [address] [place] [address] Martine Benavidez, OD [address] [place] [address] documented as of this encounter Visit Diagnoses Not on filedocumented in this encounter Additional Health Concerns Assessment Noted Time PHQ-9 Depression Total Score: 21 025 10:47 AM EDT documented as of this encounter Care Teams Hydrogenation Still Operator Relationship Specialty Start Date End Date Sheree Strong NP [address] [place] [address] PCP - General Family Medicine 09/06/24 Eleonora Quigley, MARGARITA [address] [place] [address] Registered Nurse Family Medicine 05/16/25 Cheryl Mead 05/16/25 documented as of this encounter
--- OUTSIDE RECORDS SUMMARY | 2025-06-29 15:48 | XMS_ITS | Clinical Summary ---
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 18 g 1 05/20/20 24 Active budesonide-form oterol (Symbicort) 160-4.5 MCG/ACT inhalerIndicati ons:Chronic obstructive pulmonary disease, unspecified COPD type (CMS/HCC) INHALE 2 PUFFS BY MOUTH TWICE DAILY, RINSE MOUTH AFTER USING. 10.2 g 2 09/14/20 24 Active Ferrous Sulfate (iron) 325 (65 Fe) MG tabletIndicatio ns:Iron deficiency anemia, unspecified iron deficiency anemia type TAKE 1 TABLET BY MOUTH EVERY DAY WITH vitamin c 90 tablet 1 11/14/19 25 Active clopidogrel (Plavix) 75 MG tabletIndicatio ns:Arterioscler osis of coronary artery Take 1 tablet (75 mg) by mouth Once per day. 90 tablet 12/06/19 25 Active carvedilol (Coreg) 12.5 MG tablet Take 1 tablet (12.5 mg) by mouth with breakfast and with evening meal. 60 tablet 11 01/07/20 25 026 Active Acetaminophen Extra Strength 500 MG tablet TAKE 1 TABLET BY MOUTH EVERY 8 HOURS NEEDED FOR MODERATE PAIN 90 tablet 2 04/13/20 25 Active Umeclidinium [place] (Incruse Ellipta) 62.5 MCG/ACT aerosol powderIndicatio ns:Chronic obstructive pulmonary disease, unspecified COPD type ([facility]) Inhale 1 Act (62.5 mcg) Once per day. INHALE 1 PUFF BY MOUTH EVERY DAY AT THE SAME TIME 30 each 2 04/13/20 25 Active sacubitril-vals roger (Entresto) 24-26 MG tabletIndicatio ns:Heart failure with recovered ejection fraction (HFrecEF) ([facility]) Take 1 tablet by mouth 2 times daily. 60 tablet 3 05/15/20 25 Active amLODIPine (Norvasc) 5 MG tablet Take 1 tablet (5 mg) by mouth Once per day. 30 tablet 2 05/15/20 25 025 Active Ascorbic Acid (vitamin C) 250 MG tablet TAKE 1 TABLET BY MOUTH EVERY DAY WITH IRON TABLET 04/26/20 25 Active Aspirin Low Dose 81 MG EC tablet Take 1 tablet by mouth Once per day. 04/26/20 25 Active traZODone (Desyrel) 150 MG tabletIndicatio ns:Insomnia, unspecified type TAKE 1 TABLET BY MOUTH AT BEDTIME 30 tablet 2 06/07/20 25 Active DULoxetine (Cymbalta) [address] capsuleIndicati ons:Fibromyalgi a TAKE 1 CAPSULE BY MOUTH EVERY DAY 30 capsule 2 06/07/20 25 Active Jardiance 10 MG Take 1 tablet by mouth Once per day. 06/02/20 25 Active atorvastatin (Lipitor) 40 MG tabletIndicatio ns:Arterioscler osis of coronary artery TAKE 1 TABLET BY MOUTH EVERY DAY 90 tablet 1 06/12/20 25 Active pantoprazole (ProtoNix) 40 MG EC tabletIndicatio ns:Gastro-esoph ageal reflux disease without esophagitis TAKE 1 TABLET BY MOUTH EVERY DAY BEFORE BREAKFAST 90 tablet 1 06/12/20 25 Active psyllium (Metamucil) 0.36 g capsule Take 6 capsules (2.16 g) by mouth Once per day. 180 capsule 11 06/21/20 026 Active fluticasone (Flonase) 50 MCG/ACT nasal spray Administer 1-2 sprays into each nostril Once per day. Shake gently. Before first use, prime pump. After use, clean tip and replace cap. 16 g 06/21/20 026 Active gabapentin (Neurontin) 400 MG capsule TAKE 1 CAPSULE BY MOUTH EVERY 8 HOURS 90 capsule 2 06/26/20 Active traZODone (Desyrel) 150 MG tabletIndicatio ns:Insomnia, unspecified type Take 1 tablet (150 mg) by mouth at bedtime. 30 tablet 2 12/06/19 025 Discontinued(R eorder (will not trigger notification to Pharmacy)) pantoprazole (ProtoNix) 40 MG EC tabletIndicatio ns:Gastro-esoph ageal reflux disease without esophagitis Take 1 tablet (40 mg) by mouth before breakfast. 90 tablet 1 12/06/19 025 Discontinued atorvastatin (Lipitor) 40 MG tabletIndicatio ns:Arterioscler osis of coronary artery Take 1 tablet (40 mg) by mouth Once per day. 90 tablet 1 12/06/19 025 Discontinued DULoxetine (Cymbalta) [address] capsuleIndicati ons:Fibromyalgi a Take 1 capsule (60 mg) by mouth Once per day. 30 capsule 2 12/06/19 025 Discontinued(R eorder (will not trigger notification to Pharmacy)) gabapentin (Neurontin) 400 MG capsule TAKE 1 CAPSULE BY MOUTH EVERY 8 HOURS 90 capsule 2 03/14/20 025 Discontinued Reguloid 400 MG capsule TAKE 5 CAPSULES BY MOUTH EVERY DAY 150 capsule 11 05/16/20 25 025 Discontinued hydrALAZINE (Apresoline) 25 MG tablet Take 1 tablet by mouth 3 times daily. 05/18/20 25 025 Discontinued traMADol (Ultram) 50 MG tabletIndicatio ns:Chronic idiopathic constipation Take 1 tablet (50 mg) by mouth every 6 (six) hours if needed for severe pain for up to 7 days. 28 tablet 06/21/20 25 025 Active Problems Problem Noted Date Diagnosed Date Seasonal allergic rhinitis due to pollen 025 Assessment & Plan (06/23/2025 11:22 AM EDT): Vasovagal syncope 06/21/2025 Assessment & Plan (06/23/2025 11:22 AM EDT): Arthritis of right hip 05/15/2025 Assessment & Plan (05/15/2025 10:48 AM EDT): Referral to ortho and physical therapy Foot pain, right 04/09/2025 Nausea 04/09/2025 Heart failure with recovered ejection fraction ( HFrecEF) 04/07/2025 Assessment & Plan (05/15/2025 10:46 AM EDT): Renewed entresto, pt will update if unable to get Pt will call caridology based on pre-syncope symptoms Assessment & Plan (04/09/2025 11:58 AM EDT): Resume entresto Right hip pain 04/07/2025 Thrush of mouth and esophagus 04/07/2025 Assessment & Plan (04/09/2025 11:59 AM EDT): Suspect thrush, referral to gi for bloating and daily nausea which I do not think can be explained by thrush Migraine without aura and wi thout status [...] is not helpful Renal artery stenosis 11/01/2024 Overview (04/07/2025): History of PVD/PAD History of renal artery stenosis History of bilateral renal stents continue Plavix aspirin statin Carotid artery stenosis 11/01/2024 Assessment & Plan (05/15/2025 10:45 AM EDT): Continue statin, bp above goal today Limping 11/01/2024 Noncompliance 10/29/2024 HTN (hypertension) 10/29/2024 Assessment & Plan (05/15/2025 10:47 AM EDT): Above goal today, Add amlodipine Diabetes 10/25/2024 Assessment & Plan (04/09/2025 11:58 AM EDT): Monitor closely, Lab Results Component Value Date HGBA1C 5.9 01/06/2025 CVA (cerebral vascular accident) 10/25/2024 Overview (01/06/2025): [facility] (10/19/24 - 10/25/24) Patient presented to the ED due to chest pain radiating to the left arm. While in the ED, patient developed left-sided numbness/tingling and left facial droop. Stroke alert was activated. Imaging showed chronic left vertebral occlusion, which was treated with tenecteplase Other chronic pain 09/11/2024 Assessment & Plan (06/23/2025 11:22 AM EDT): Orders: Basic Metabolic Panel; Future Assessment & Plan (09/11/2024 4:04 PM EST): Pt reports pain was treated in [place], once established with rheumatology and disease flares managed (not currently) will address adjunctive pain measure Pt in agreement with this plan Health care maintenance 09/11/2024 Assessment & Plan (09/11/2024 4:02 PM EST): Referrals to eye care, dental Mammogram ordered Former heavy tobacco smoker 05/20/2024 Overview (05/20/2024): Smoked from [id number], 1-1.5 PPD, 41-61.5 PYH Lupus erythematosus 03/15/2024 [...] Code Type: ICD-10; Acute chest pain 02/24/2023 Transient cerebral ischemia 12/18/2022 Overview (04/05/2025): DESCRIPTION: TIA (transient ischemic attack) NOTES: from hospitalization discharge Problem Code: G45.9; Problem Code Type: ICD-10; Hypertensive heart disease with congestive heart failure [...] cath 03/2020: Patent ALMENDAREZ-LAD, SVG-OM, SVG-PDA. Severe [place] vessel CAD. Lexiscan 06/2021: Anterior ischemia. Cardiac [...] Systemic lupus erythematosus 09/29/2022 Assessment & Plan (05/15/2025 10:49 AM EDT): In care with rheumatology Assessment & Plan (09/11/2024 4:01 PM EST): Labs as ordered below, upcoming visit with rheumatology Pending chronic disease management, consider pain treatment Encounter for general adult medical examination with abnormal findings 07/22/2022 Overview (04/05/2025): DESCRIPTION: Encounter for general adult medical examination with abnormal findings Body mass index (BMI) 19.9 or less, adult 2021 Overview (04/05/2025): DESCRIPTION: BMI less than 19,adult Problem Code: Z68.1; Problem Code Type: ICD- 10; Body mass index less than 19, adult 07/09/2022 Overview (11/01/2024): DESCRIPTION: BMI less than 19,adult Problem Code: Z68.1; Problem Code Type: ICD- 10; Loss of appetite 07/09/2022 Overview (11/01/2024): DESCRIPTION: Poor appetite Problem Code: R63.0; Problem Code Type: ICD-10; History of cerebrovascular accident 07/07/2022 History of coronary artery bypass surgery 2021 Ischemic cardiomyopathy 07/07/2022 Rheumatoid arthritis 07/07/2022 Assessment & Plan (05/15/2025 10:48 AM EDT): In care with rheumatology Acute kidney failure, unspecified 07/07/2022 Vertigo 07/07/2022 Heart failure with reduced ejection fraction Abdominal aortic aneurysm without rupture 2021 Overview (05/20/2024): CT 11/16/23 aneurysm of the infrarenal aorta measuring 3.1 cm.. Diffuse aortoiliac calcified atherosclerosis. Bilateral renal artery stents. Arteriosclerosis of coronary artery 06/24/2022 Overview (04/06/2025): S/p CABG x3 2019 Most recent cardiac catheterization is from 2023-that shows multivessel CAD with patent ALMENDAREZ/saphenous grafts. Severe [place] vessel disease. Echocardiogram from [facility]-reported to have grossly normal LVEF; no overt abnormalities. In 2021, LVEF was apparently 30-35%. Assessment & Plan (05/15/2025 10:45 AM EDT): Continue plavix and statin Assessment & Plan (04/09/2025 11:57 AM EDT): Continue with aspirin and plavix (per cardiology) And statin Coronary arteriosclerosis in [place] artery 06/24 Overview (11/01/2024): I25.10: Atherosclerotic heart disease of [place] coronary artery without angina pectoris Atherosclerosis of coronary artery without angin a pectoris 03/05/2022 Low back pain 08/08/2021 Overview (04/05/2025): DESCRIPTION: Acute midline low back pain without sciatica Problem Code: M54.50; Problem Code Type: ICD-10; Encounter for follow-up exam ination after completed treatment for conditions other than malignant neoplasm 08/08/2021 Overview (04/05/2025): DESCRIPTION: Hospital discharge follow-up Problem Code: Z09; Problem Code Type: ICD-10; Encounter for screening for malignant neoplasm o f colon 08/08/2021 Overview (04/05/2025): DESCRIPTION: Encounter for screening for malignant neoplasm of colon Problem Code: Z12.11; Problem Code Type: ICD-10; Encounter for screening mamm ogram for malignant neoplasm of breast 08/08/2021 Overview (04/05/2025): DESCRIPTION: Encounter for screening mammogram for malignant neoplasm of breast Problem Code: Z12.31; Problem Code Type: ICD-10; Acute lower respiratory tract infection 06/04/20 Overview (11/01/2024): DESCRIPTION: Acute respiratory infection Problem Code: J22; Problem Code Type: ICD-10; Neuralgia of left sciatic nerve 03/13/2021 Overview (11/01/2024): DESCRIPTION: Sciatica of left side Problem Code: M54.32; Problem Code Type: ICD- 10; Encounter for screening for depression Overview (04/05/2025): DESCRIPTION: Depression screening Problem Code: Z13.31; Problem Code Type: ICD- 10; Prediabetes 01/15/2021 Assessment & Plan (05/15/2025 10:48 AM EDT): Trend labs as ordered below Vitamin D deficiency 01/15/2021 Dizziness and giddiness 01/15/2021 Overview (11/01/2024): DESCRIPTION: Dizziness NOTES: pt denied associated sxs she verbalized sxs is like low BP Problem Code: R42; Problem Code Type: ICD-10; Constipation 12/13/2019 Overview (11/01/2024): DESCRIPTION: Constipation, unspecified constipation type Problem Code: K59.00; Problem Code Type: ICD-10; Assessment & Plan (06/23/2025 11:22 AM EDT): Orders: traMADol (Ultram) 50 MG tablet; Take 1 tablet (50 mg) by mouth every 6 (six) hours if needed for severe pain for up to 7 days. Assessment & Plan (05/15/2025 10:48 AM EDT): Add fiber, monitor Atherosclerosis of coronary artery of transplant ed [...] Encounters Date Type Department Care Team Description 06/29/2025 Telephone [facility] MEDICINE [address] [place] [phone] Sheree Strong NP CHARTPREP 06/27/2025 Telephone [facility] MEDICINE [address] [place] [phone] Sheree Strong NP PT-1 06/26/2025 Telephone [facility] WALK-IN CENTER [address] [place] [phone] Sheree Strong NP 06/24/2025 Refill [facility] MEDICINE [address] [place] [phone] Sheree Strong NP 06/21/2025 9:45 AM EDT Office Visit [facility] MEDICINE [address] [place] [phone] Sheree Strong NP Chronic idiopathic constipation (Primary Dx); Seasonal allergic rhinitis due to pollen; Vasovagal syncope; Other chronic pain 06/21/2025 Travel 06/11/2025 Refill [facility] MEDICINE [address] [place] [phone] Sheree Strong NP Arteriosclerosis of coronary artery; Gastro-esophageal reflux disease without esophagitis 06/09/2025 Telephone [facility] MEDICINE [address] [place] [phone] Sheree Strong NP 06/09/2025 Telephone [facility] MEDICINE [address] [place] [phone] Sheree Strong NP No Show (Pt no show to [facility] D/C 05/20/25 Dx: ABD pain with vomiting, Syncope, Htn on 06/09/2025. No show forward to [facility] nurses.) 06/08/[address] [phone] Sheree Strong NP Chart Prep 06/07/[address] [facility] MED & PEDS [address] [place] [address] Sheree Strong NP Insomnia, unspecified type; Fibromyalgia 05/30/2025 Telephone [facility] [address] [place] [address] Sheree Strong NP 05/25/2025 Patient Outreach [address] [phone] Sheree Strong NP Care Management (C3CM- initial assessment/ enrollment. Not available. ) 05/24/2025 Patient Outreach [address] [phone] Sheree Strong NP Care Coordination (CM/CHW appt reminder) 05/23/[address] [phone] Sheree Strong NP FYI 05/22/2025 Patient Outreach [address] [phone] Sheree Strong NP 05/19/2025 Patient Outreach [address] [address] Sheree Strong NP Transition Of Care (Tcm) (HDF- Unscheduled - patient still admitted. ) 05/19/[address] [phone] Sheree Strong NP FYI 05/18/2025 Patient Outreach [address] [address] Sheree Strong NP 05/18/[address] [address] Sheree Strong NP requesting call back 05/17/2025 Patient Outreach [address] [address] Sheree Strong NP 05/16/[address] [phone] Sheree Strong NP Prior Authorization 05/16/2025 Patient Outreach [address] [phone] Sheree Strong NP Care Coordination (CM/CHW outreach) 05/16/2025 Patient Outreach [address] [phone] Sheree Strong NP Care Coordination (CHW chart review) 05/16/2025 Patient Outreach [address] [phone] Sheree Strong NP Care Management ([facility]- chart review) 05/16/2025 Patient Outreach [address] [phone] Sheree Strong NP 05/15/2025 9:00 AM EDT Office Visit [address] [phone] Sheree Strong NP Health care maintenance (Primary Dx); Heart failure with recovered ejection fraction (HFrecEF) ([facility]); Hypertension, unspecified type; Other constipation; Arthritis of right hip; Rheumatoid arthritis of other site, unspecified whether rheumatoid factor present (CMS/HCC); Chronic obstructive pulmonary disease, unspecified COPD type (CMS/HCC); Arteriosclerosis of coronary artery; Stenosis of carotid artery, unspecified laterality; Chronic combined systolic and diastolic heart failure (CMS/HCC); Prediabetes; Systemic lupus erythematosus, unspecified SLE type, unspecified organ involvement status (CMS/HCC); Other chronic pain; Cerebrovascular accident (CVA) due to other mechanism (CMS/HCC); Hypertensive heart disease with congestive heart failure, unspecified heart failure type (CMS/HCC) 05/15/[address] [phone] Sheere Strong NP Fax office note 05/15/[address] [address] Sheree Strong NP 05/15/2025 Travel 05/12/[address] [address] Zakia Connolly MA Chart Prep 05/10/2025 9:00 AM EDT Office Visit [facility] OPTOMETRY [address] [place] [address] Martine Benavidez, OD Diabetes type 2, no ocular involvement ([facility]/HCC) (Primary Dx); Glaucoma suspect of both eyes; Nuclear sclerotic cataract of both eyes; Hypertensive retinopathy of both eyes; Presbyopia 05/10/2025 Travel 05/08/2025 Patient Outreach [facility] MED & PEDS [address] [place] [address] Sheree Strong NP Pre-visit Planning ([facility] unable to reach [facility] ) 05/03/2025 Orders Only [facility] MEDICINE [address] [place] [address] Shirlene Cortes NP Right hip pain (Primary Dx) 05/02/2025 Telephone [facility] MEDICINE [address] [place] [address] Sheree Strong NP Medication Question 04/13/2025 Telephone [facility] MEDICINE [address] [place] [address] Esvin Benton CNP Chart Prep 04/12/2025 Refill [facility] MEDICINE [address] [place] [phone] Name, MD Dante Chronic obstructive pulmonary disease, unspecified COPD type ([facility]/HCC) 04/12/2025 Refill [facility] WALK-IN CENTER [address] [place] [address] Sheree Strong NP Chronic obstructive pulmonary disease, unspecified COPD type ([facility]/HCC) 04/07/2025 10:15 AM EDT Office Visit [facility] MEDICINE [address] [place] [address] Sheree Strong NP Arteriosclerosis of coronary artery (Primary Dx); Heart failure with recovered ejection fraction (HFrecEF) ([facility]); Type 2 diabetes mellitus with other diabetic kidney complication, without long-term current use of insulin ([facility]); Right hip pain; Thrush of mouth and esophagus ([facility]/HCC); Foot pain, right; Nausea; History of cerebrovascular accident; Renal artery stenosis (CMS/HCC) 04/07/2025 Patient Outreach [facility] MED [facility] PEDS [address] [place] [address] Sheree Strong NP Pre-visit Planning ([facility] unable to reach [facility]) 04/07/2025 Results Follow-Up [facility] MEDICINE [address] [place] [address] Lynda David RN XR Hip 2 or 3 Views Right 04/07/2025 Travel 04/05/2025 Telephone [facility] MEDICINE [address] [place], [place] [phone] Zakia Connolly MA Chart Prep from Last 3 Months Immunizations Immunization Administration [...] Cigarettes Q uit: 1978 Smokeless Tobacco: Never Tobacco Cessation:Counseling Given: Not [...] Pests such as bugs, ants, or mice;Lead [place] or P[place];Inadequate heat 09/06/2024 Food Insecurity Answer [...] Sign Reading Time Taken Comments Blood Pressure 140/89 06/21/2025 9:57 AM EDT W M EDS Pulse 95 06/21/2025 9:57 AM EDT Temperature 36.5 C (97.7 F) 06/21/2025 9:57 AM EDT Respiratory Rate 20 06/21/2025 9:57 AM EDT Oxygen Saturation 97% 06/21/2025 9:57 AM EDT Inhaled Oxygen Concentration - - Weight 48.4 kg (106 lb 9.6 oz) 06/21/2025 9:57 A M EDT Height 160 cm (5' 3 ) 06/21/2025 9:57 AM EDT Body Mass Index 18.88 06/21/2025 9:57 AM EDT Plan of Treatment Upcoming Encounters Date Type Department Care Team (Late st Contact Info) Description 07/03/2025 11:30 AM EDT Office Visit [facility] MEDICINE [address] [place] [address] Sheree Strong, [employer]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 [address] [place] [address] 08/11/2025 1:00 PM EDT Office Visit [facility] OPTOMETRY [address] [place], [place] [phone] Pramod, Martine, OD [address] [place], [place] [phone] Health Maintenance Due Date Last Done Comments CT Colonography 1960 Colonoscopy 1960 FIT 1960 Sigmoidoscopy 1960 Diabetes: Foot Exam 1970 Pneumococcal Vaccine: 50+ Years (1 of 2 - PCV) 12/24/1979 06/05/1997 Zoster Vaccines (1 of 2) 2010 RSV Patients and Patients Aged 60 years or older (1 - Risk 60-74 years 1-dose series) 2020 FOBT 10/04/2024 10/04/2023 COVID-19 Vaccine ( - season) 2025 Influenza Vaccine (#1) 2025 , 07/09/2024, 08/02/2015, Additional history exists SDOH Screening 09/06/2025 09/06/2024 Depression Monitoring 10/07/2025 04/07/2025, 025 Alcohol/Substance Use Screening 11/09/2025 11/09/2024 Diabetes: Hemoglobin A1C 11/15/2025 025, 01/06/2025, 10/26/2024, Additional history exists Disability Screening 01/06/2026 01/06/2025 Lipid Panel 05/15/2026 05/15/2025, 09/06/2024 Tobacco Screening 06/21/2026 06/21/2025 Colorectal Cancer Screening 10/04/2026 FIT DNA/Cologuard 10/04/2026 10/04/2023 Mammogram 01/10/2027 01/10/2025, 12/18, 08/26/2018 Eye Exam 05/10/2027 05/10/2025, 04/19, 05/10/2025, Additional history exists Cervical Cancer Screening 11/09/2029 HPV/Cotest 11/09/2029 11/09/2024, [...] Procedure Name Priority Date/Time Associated Diagnosis Comments CBC WITH AUTO DIFFERENTIAL Routine 05/15/2025 10:16 AM EDT Health care maintenance HEMOGLOBIN A1C Routine 05/15/2025 10:16 AM EDT Health care maintenance COMPREHENSIVE METABOLIC PANEL Routine 05/15/2025 10:16 AM EDT Health care maintenance LIPID PANEL, STANDARD Routine 05/15/2025 10:16 AM EDT Health care maintenance OCT, OPTIC NERVE - OU - BOTH EYES Routine 05/10/2025 9:00 AM EDT Glaucoma suspect of both eyes BASIC METABOLIC PANEL Routine 04/07/2025 11:00 AM EDT Heart failure with recovered ejection fraction (HFrecEF) ([facility]/HCC) XR HIP 2 OR 3 VIEWS RIGHT Routine 04/07/2025 10:50 AM EDT Right hip pain POCT GLUCOSE Routine 04/07/2025 10:29 AM EDT Type 2 diabetes mellitus with other diabetic kidney complication, without long-term current use of insulin ([facility]) BI US BREAST LIMITED BILATERAL Urgent 01/10/2025 11:06 AM EDT HPV DNA, LOW/HIGH RISK Routine 11:25 AM [...] Relevant to Health Maintenance Results * (ABNORMAL) CBC auto differential (05/15/2025 10:16 AM EDT) White Blood Count 4.8 4.8 - 10.8 X10*3/uL [facility] Red Blood Count 4.99 4.20 - 5.50 X10*6/uL [facility] Hemoglobin 12.4 12.0 - 16.0 g/dl [facility] Hematocrit 40.7 37.0 - 47.0 % [facility] Mean Corpuscular Volume 81.6 80.0 - 98.0 fL [facility] Mean Corpuscular Hemoglobin 24.8(L) 27.0 - 33.0 pg [facility] Mean Corpuscular HGB Conc 30.5(L) 31.0 - 35.0 g/dl [facility] Red Cell Distribution Width 15.8 11.0 - 16.0 % [facility] Platelet Count 208 160 - 400 X10*3/uL [facility] Mean Platelet Volume 10.9 9.4 - 12.3 fL [facility] Neutrophils Percent Auto 34.9(L) 45 - 73 % [facility] Imm Gran Pct Auto 0.2 0.0 - 0.4 % [facility] Lymphocytes Percent Auto 42.8(H) 20 - 40 % [facility] Monocytes Percent Auto 9.9 2 - 11 % [facility] Eosinophils Percent Auto 11.8(H) 0 - 4 % [facility] Basophils Percent Auto 0.4 0 - 2 % [facility] NRBC Pct Auto 0.0 0.0 - 0.2 /100WBC [facility] Neutrophils Absolute Auto 1.7(L) 2.0 - 8.3 x10*3/uL [facility] Imm Gran Abs Auto 0.01 0.00 - 0.03 X10*3/uL [facility] Lymphocytes Absolute Auto 2.1 1.2 - 4.9 X10*3/uL [facility] Monocytes Absolute Auto 0.5 0.1 - 1.2 X10*3/uL [facility] Eosinophils Absolute Auto 0.6(H) 0.0 - 0.4 X10*3/uL [facility] Basophils Absolute Auto 0.0 0.0 - 0.2 X10*3/uL [facility] NRBC Abs Auto 0.000 0.0 - 0.012 X10*3/uL [facility] Blood Venous blood specimen / Unknown 05/15/2025 10:16 AM EDT 05/15/2025 11:26 AM EDT us Sheree Strong 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 LAB BLOOD ORDERABLES Final Resul t Performing Organization Address [facility] Center/[facility] Co de Phone Number [facility] [address] [place] [phone] * Hemoglobin A1c (05/15/2025 10:16 AM EDT) Hemoglobin A1c 5.7 <6.0 % [facility] Comment:Hemoglobin A1C Refer ence Range Adults: 4.8 - 6.0 % Non diabetic: < 6.0 % Goal: < 7.0 %Additional Action Suggested: > 8.0 %Note: Hemoglobin A1c results are invalid for patients with abnormal amounts of HbF. Blood transfusions may impact the HbA1c concentration in the patient sample. Estimated Average Glucose 117 mg/dL [facility] Comment:eAG = Estimated ave rage glucose which is %A1C expressed asaverage glucose, using the formula of the P3Z-[id number] Glucose study (ADAG), Diabetes Care, Vol.31,#8,May. 2007 Blood Venous blood specimen / Unknown 05/15/2025 10:16 AM EDT 05/15/2025 11:26 AM EDT us Sheree Strong TR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 LAB BLOOD ORDERABLES Final Resul t Performing Organization Address [facility] de Phone Number [facility] [address] [place] [phone] * Lipid Panel, Standard (05/15/2025 10:16 AM EDT) Triglycerides 120 <150 mg/dL [facility] Comment:Desirable Triglyceri de: less than 150 mg/dLBorderline High Triglyceride 150-199 mg/dLHigh Triglyceride: 200-499 mg/dLVery High Triglyceride: greater than or equal to 5OO mg/dL Cholesterol 123 <200 mg/dL [facility] Comment:Desirable Cholestero l: less than 200 mg/dLBorderline High Cholesterol: 200-239 mg/dLHigh Cholesterol: greater than 239 mg/dL LDL Cholesterol Calculated 51 <100 mg/dL [facility] Comment:Desirable LDL: less than 100 mg/dLNear Optimal/Above Optimal LDL: 110- 129 mg/dLBorderline High LDL: 130-159 mg/dLHigh LDL: 160-189 mg/dLVery High LDL: greater than or equal to 190 mg/dL HDL Cholesterol 48 >40 mg/dL [facility] Comment:Desirable HDL: great er than 40 mg/dL Note: This HDL assay may give artificially low results in patients with liver disease. Blood Venous blood specimen / Unknown 05/15/2025 10:16 AM EDT 05/15/2025 11:26 AM EDT us Sheree Strong NP LAB BLOOD ORDERABLES Final Resul t [facility] [address] [place] [phone] [phone] * (ABNORMAL) Comprehensive Metabolic Panel (05/15/2025 10:16 AM EDT) Sodium 142 135 - 145 mmol/L [facility] Potassium 4.2 3.3 - 5.1 mmol/L [facility] Chloride 110(H) 96 - 108 mmol/L [facility] Carbon Dioxide 27 22 - 29 mmol/L [facility] Anion Gap 9(L) 12 - 20 [facility] Urea Nitrogen (BUN) 11 9 - 16 mg/dL [facility] Creatinine, Serum 0.95 0.5 - 1.4 mg/dL [facility] Estimated Glomerular Filt Rate 59 [facility] Comment:Chronic Kidney Disea se: Estimated GFR < 60 mL/min/1.85z8Ccecoz Kidney Disease: Estimated GFR < 15 mL/min/1.73m2 Glucose 97 60 - 115 mg/dL [facility] Calcium 9.4 8.4 - 10.2 mg/dL [facility] Bilirubin, Total 0.3 0.0 - 1.0 mg/dL [facility] Aspartate Amino Transferase 24 5 - 31 U/L [facility] Alanine Aminotransferase 12 0 - 31 U/L [facility] Total Protein 8.0 6.5 - 8.0 g/dL [facility] Albumin Level 4.4 3.5 - 5.0 g/dL [facility] Alkaline Phosphatase 73 39 - 117 U/L [facility] Blood Venous blood specimen / Unknown 05/15/2025 10:16 AM EDT 05/15/2025 11:26 AM EDT us Sheree Strong TR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 LAB BLOOD ORDERABLES Final Resul t [facility] [address] [place] [address] [phone] * OCT, Optic Nerve - OU - Both Eyes (05/10/2025 9:00 AM EDT) Narrative Martine Benavidez, OD - 05/26/2025 11:54 AM EDT Images from the original result were not included. Right Eye To assess optic nerve function and for use in future follow-up. Reliability: good and adequate. Left Eye To assess optic nerve function and for use in future follow-up. Reliability: good and adequate. Notes OCT OPTIC NERVE INTERPRETATION Optical Coherence Tomography Interpretation Report Test Details: Measurements: OD OS C/D Horizontal 0.72 0.79 C/D Vertical 0.69 0.71 Disc area 2.33mm 2 2.24mm 2 RNFL Average 90 microns 87 microns Test findings: OD: Definite RNFL thinning in temporal quadrant, normal RNFL thickness in all other quadrants OS: Definite RNFL thinning in temporal quadrant, normal RNFL thickness in all other quadrants Impression and Plan: Will have patient return in 2-3 months for a visual field test. us Martine Pramod OD OPHTH TOMOGRAPHY Final Result * (ABNORMAL) Basic Metabolic Panel (04/07/2025 11:00 AM EDT) Sodium 138 135 - 145 mmol/L [facility] Potassium 4.5 3.3 - 5.1 mmol/L [facility] Chloride 107 96 - 108 mmol/L [facility] Carbon Dioxide 27 22 - 29 mmol/L [facility] Anion Gap 9(L) 12 - 20 [facility] Urea Nitrogen (BUN) 13 9 - 16 mg/dL [facility] Creatinine, Serum 0.96 0.5 - 1.4 mg/dL [facility] Estimated Glomerular Filt Rate 59 [facility] Comment:Chronic Kidney Disea se: Estimated GFR < 60 mL/min/1.11z7Fbtbdg Kidney Disease: Estimated GFR < 15 mL/min/1.73m2 Glucose 89 60 - 115 mg/dL [facility] Calcium 9.7 8.4 - 10.2 mg/dL [facility] Blood Venous blood specimen / Unknown 04/07/2025 11:00 AM EDT 04/07/2025 11:31 AM EDT us Sheree Strong TR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 LAB BLOOD ORDERABLES Final Resul t Performing Organization Address City/State/[facility] Co de Phone Number [facility] [address] [place] [phone] * XR Hip 2 or 3 Views Right (04/07/2025 10:50 AM EDT) Anatomical Region Laterality Modality Lower Extremities, Hip Right Radiograp hic Imaging 04/07/2025 10:5 0 AM EDT Narrative 04/07/2025 12:13 PM EDT [address] [address] XRay Report Signed Patient: Estephania Bill MR#: [id number] : 1960 Acct:[id number] Age/Sex: 64 / F ADM Date: 04/07/25 Loc: HO.HHCL Attending Dr: Sheree Strong TR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 Ordering Physician: Sheree Strong NP Date of Service: 04/07/25 Procedure(s): XR hip RT min 2V Accession Number(s): [id number] cc: Sheree Strong TR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 EXAMINATION: XR HIP, RIGHT CLINICAL INFORMATION: right SI joint pain, no trauma COMPARISON: None available. TECHNIQUE: Two views of the right hip. FINDINGS: Minimal degenerative changes present along the acetabular roof. Joint spaces preserved. Visualized portions of the right SI joint are unremarkable. XR/XR hip RT min 2V IMPRESSION: Mild degenerative changes right hip joint. Electronically signed by: Tariq Prado MD 04/07/2025 12:10 PM EDT RP Dictated By: Tariq Prado MD Signed By: <Electronically signed by Tariq Prado MD in OV> 04/07/25 1210 DD/ 1050 TD/TT: 04/07/25 1100 Audio Tape Librarian: Procedure Note Donotuseinterpreter, Image - 04/07/[address] [address] XRay Report Signed Patient: Estephania BillMR#: [id number] : 1960cct:[id number] Age/Sex: 64 / FADM Date: 04/07/25 Loc: .[facility] Attending Dr: Sheree Strong TR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 Ordering Physician: Sheree Strong NP Date of Service: 04/07/25 Procedure(s): XR hip RT min 2V Accession Number(s): [id number] cc: Sheree Strong TR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 EXAMINATION: XR HIP, RIGHT CLINICAL INFORMATION: right SI joint pain, no trauma COMPARISON: None available. TECHNIQUE: Two views of the right hip. FINDINGS: Minimal degenerative changes present along the acetabular roof. Joint spaces preserved. Visualized portions of the right SI joint are unremarkable. XR/XR hip RT min 2V IMPRESSION: Mild degenerative changes right hip joint. Electronically signed by: Tariq Prado MD 04/07/2025 12:10 PM EDT RP Dictated By: Tariq Prado MD Signed By: <Electronically signed by Tariq Prado MD in OV> 04/07/25 1210 DD/ 1050 TD/TT: 04/07/25 1100 Audio Tape Librarian: us Sheree Strong TR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 IMG XR PROCEDURES Final Result * POCT Glucose (04/07/2025 10:29 AM EDT) Glucose Blood, POC 100 60 - 200 mg/dL QC Media Lot # [id number] Lot# Expiration Date Blood Capillary blood specimen / Unknown 04/07/2025 10:29 AM EDT us Sheree Strong TR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 POINT OF CARE TEST ENTER/EDIT OR DERABLES Final Result * BI US Breast Limited Bilateral (01/10/2025 11:06 AM EDT) Anatomical Region Laterality Modality Breast Bilateral Ultrasound 01/10/2025 11:0 6 AM EDT Narrative 01/10/2025 11:45 AM EDT [facility] [address] [place] [address] Ultrasound Report Signed Patient: Estephania Bill MR#: [id number] : 1960 Acct:[id number] Age/Sex: 64 / F ADM Date: 01/10/25 Loc: HO.MAMMO Attending Dr: Oksana Munson CNM Ordering Physician: OKSANA MUNSON CNM Date of Service: 01/10/25 Procedure(s): US breast BI limited mamm only Accession Number(s): [id number] cc: OKSANA MUNSON CNM; LUCIO GOOD NP [...] site of palpable lump without underlying abnormality. Providence marker in the upper inner breast at [...] 01/10/25 1143 DD/ 1106 TD/TT: 01/10/25 1136 Audio Tape Librarian: Procedure Note Donotuseinterpreter, Image - 01/10/2025 [facility] [address] [place] [address] Ultrasound Report Signed Patient: Estephania BillMR#: [id number] : 1960cct:[id number] Age/Sex: 64 / FADM Date: 01/10/25 Loc: HO.MAMMO Attending Dr: Oksana Munson CNM Ordering Physician: OKSANA MUNSON CNM Date of Service: 01/10/25 Procedure(s): US breast BI limited mamm only Accession Number(s): [id number] cc: OKSANA MUNSON CNM; LUCIO GOOD NP [...] site of palpable lump without underlying abnormality. Providence marker in the upper inner breast at [...] 01/10/25 1143 DD/ 1106 TD/TT: 01/10/25 1136 Audio Tape Librarian: us Oksana Munson CNM [facility] US PROCEDURES Edited Result - Final * HPV DNA, Low/High Risk (11/09/2024 11:25 AM EST) HPV High Risk Negative Negative [facility] HPV Genotype 16 Negative Negative [facility] HPV Genotype 18 Negative Negative [facility] Comment:HPV testing performe d at [facility] (CLIA#[id number]), [address] [place] [phone].Testing for HPV was performed using the Julio [...] [facility] LAB BLOOD ORDERABLES Final Res ult [facility] [address] [place] [phone] * Pap Smear (11/09/2024 11:25 AM EST) Swab Cervix uteri structure / Unknown 11/09/2024 11:25 AM EST 11/09/2024 2:00 PM EST Narrative [facility] - 11/15/2024 10:17 AM EST ----- ------- Name: Estephania Bill Age/Sex: 63/F : 1960 Unit#: [id number] Attend Dr: Dori Rhodes Re11/09/24 Status: DEP REF Location: [facility] Disch: ----- ------- SPEC : [id number] RECD: 11/09/24-1400 STATUS: LEISA REESE NUM: [id number] NICKI: 11/09/241125 [facility] DR: Dori Rhodes ENTERED: 11/09/24140 SP TYPE: Pap Smr OTHR DR: ORDERED: Pap Smear Interpretation Satisfactory for evaluation. Negative for intraepithelial lesion or malignancy. HPV High Risk: Negative HPV Genotyping 16: Negative HPV Genotyping 18: Negative Clinical Information LMP: Unknown date Previous PAP test: Unknown date/findings Material Received ThinPrep-Cervical ----- ------- Signed (signature on file) JONATHAN Wheatley (ASCP) 11/15/24 1017 ----- ------- END OF REPORT Dori [facility] CYTOLOGY ORDERABLES Final Result [facility] [address] [place] [phone] * (ABNORMAL) Hepatitis C Antibody with Reflex to HCV, RNA, Quantitative, Real- Time PCR (09/06/2024 2:49 PM EST) Hepatitis C Antibody Reactive( A) Nonreactive [facility] Comment:Presumptive evidence of antibodies to HCV. Blood Venous blood specimen / Unknown 09/06/2024 2:49 PM EST 09/06/2024 4:07 PM EST us Sheree Strong NP LAB BLOOD ORDERABLES Final Resul t Performing Organization Address [facility] Co de Phone Number [facility] [address] [place] [phone] * HIV-1/2 Antigen and Antibodies, Fourth Generation, with Reflexes (09/06/2024 2:49 PM EST) HIV AB/AG Nonreactive Nonreactive [facility] Comment:HIV-1 p24 Ag and/or HIV-1/HIV-2 Ab not detected.A test result that is nonreactive does not exclude thepossibility of exposure to or infection with HIV-1 and/orHIV-2. Nonreactive results in this assay for individualswith prior exposure to HIV-1 and/or HIV-2 may be due toantigen and antibody levels that are below the limit ofdetection of this assay.[employer] HIV Ag/Ab Combo assay result andsupplemental assay results should be interpreted inconjunction with the patient's clinical presentation,history and other laboratory results. If the results areinconsistent with clinical evidence, additional testing issuggested to confirm the result. Blood Venous blood specimen / Unknown 09/06/2024 2:49 PM EST 09/06/2024 4:07 PM EST us Sheree Strong NP LAB BLOOD ORDERABLES Final Resul t Performing Organization Address [facility]/ZIP Co de Phone Number [facility] [address] [place] [phone] [phone] from Last 3 Months or Most Recently Relevant to Health Maintenance Insurance [facility] C3 * Guarantor: Estephania Bill Account Type Relation to Patient Date of Phone Billing Address Personal/Family Self 1960 [address] [place] [address] * Guarantor: Estephania Bill Account Type Relation to Patient Date of Phone Billing Address Personal/Family Self 1960 [address] [place] [address] * Guarantor: Estephania Bill Account Type Relation to Patient Date of Phone Billing Address Personal/Family Self 1960 [address] [place] [address] Care Teams Stationary Steam Engineer Relationship Specialty Start Date End Date Sheree Strong NP [address] [place] [phone] PCP - General Family Medicine 09/06/24 Eleonora Quigley RN [address] [place] [phone] Registered Nurse Family Medicine 05/16/25 Cheryl Mead 05/16/25
--- OUTSIDE RECORDS SUMMARY | 2025-06-29 15:48 | XMS_ITS ---
Demographics Address [address] [place] [address] Mobile Phone Home Phone Email Address Preferred Language en Marital Status Latter Day Affiliation Unknown Race Other Race Ethnic Group Unknown Author Organization [employer] Address [address] [place] [address] [address] [place] [address] Care Team Providers Care Sign Fabricator Name Role Phone Sheree Strong NP Primary Care Provider [phone] Eleonora Quigley RN Unavailable [phone] Cheryl Mead Unavailable CM Complex Status:Outreach In Progress (Enrolling) Start date:05/16/2025 Enrollment reason:ADT Feed Overview ED- [place] [facility] [place]. . Case Team Name Relationship Phone Eleonora Quigley RN(Responsible Staff) Registered Nurse [phone] Continued Care and Services Coordination
--- OUTSIDE RECORDS SUMMARY | 2025-06-29 15:48 | XMS_ITS | Encounter Summary ---
Demographics Address [address] [place] [address] Mobile Phone Home Phone Email Address Preferred Language en Marital Status Rastafarian Affiliation Unknown Race Other Race Ethnic Group Unknown Author Organization [employer] Address [address] [facility] [address]t [place] [address] Care Team Providers Care Furniture Mover Name Role Phone Sheree Strong NP Primary Care Provider Eleonora Quigley RN Unavailable [phone] Cheryl Mead Unavailable Reason for Visit * Reason Onset Date Comments Nurse Triage 07/06/2024 Encounter Details Date Type Department Care Team (Late st Contact Info) Description 07/06/2024 Telephone [facility] [address] [place], [place] [phone] Emma De La Cruz ANP [address] [place], [place] [phone] Nurse Triage Social History Tobacco Use Types [...] Description 07/03/2025 11:30 AM EDT Office Visit [facility] [address] [place] [address] Sehree Strong NP [address] [place] [address] 08/11/2025 1:00 PM EDT Office Visit [facility] [address] [place] [address] Martine Benavidez, OD [address] [place] [address] documented as of this encounter Visit Diagnoses Not on filedocumented in this encounter Care Teams Furniture Mover Relationship Specialty Start Date End Date Sheree Strong NP [address] [place] [address] PCP - General Family Medicine 09/06/24 Eleonora Quigley, MARGARITA [address] [place] [phone] Registered Nurse Family Medicine 05/16/25 Cheryl Mead 05/16/25 documented as of this encounter
--- OUTSIDE RECORDS SUMMARY | 2025-06-29 15:48 | XMS_ITS ---
Demographics Address [address] [place] [address] Mobile Phone Home Phone Email Address Preferred Language en Marital Status Samaritan Affiliation Unknown Race Other Race Ethnic Group Unknown Author Organization [employer] Address [address] [place] [address] [address] [place] [address] Care Team Providers Care Knit Goods Cutter Hand Name Role Phone Sheree Strong NP Primary Care Provider [phone] Eleonora Quigley RN Unavailable [phone] Cheryl Mead Unavailable CHW Complex Status:Outreach In Progress (Enrolling) Start date:05/16/2025 Enrollment reason:ADT Feed Overview ED- Pt went [place] [facility] [place] 05[place]15/25. . Case Team Name Relationship Phone Cheryl Mead(Responsible Staff) [phone] Continued Care and Services Coordination
--- OUTSIDE RECORDS SUMMARY | 2025-06-29 15:48 | XMS_ITS | Encounter Summary ---
Demographics Address [address] [place] [address] Mobile Phone Home Phone Email Address Preferred Language en Marital Status Latter-Day Affiliation Unknown Race Other Race Ethnic Group Unknown Author Organization [employer] Address [address] [facility] 7t [place] [address] Care Team Providers Care Water Valve Mechanic Name Role Phone Sheree Strong NP Primary Care Provider [phone] Eleonora Quigley RN Unavailable [phone] Cheryl Mead Unavailable Reason for Visit * Reason Onset Date Comments PT-1 01/11/2025 Encounter Details Date Type Department Care Team (Late st Contact Info) Description 01/11/2025 Telephone [facility] [address] [place], [place] [phone] Sheree Strong NP [address] [place], [place] [phone] PT-1 Social History Tobacco Use Types Packs/Day [...] Pests such as bugs, ants, or mice;Lead [employer] or Pipes;Inadequate heat 09/06/2024 Food Insecurity Answer [...] Miscellaneous Notes * Telephone Encounter - Jim Ramierz - 01/11/2025 2:23 PM EDT Patient calling requesting PT1 Home Address verified: Y/N: Yes Provider name or facility name: [address] [place] [address] [place] [address] Escort needed: Y/N: No Do you have a wheelchair: Y/N: No Visits: (4) ( x monthly) documented in this encounter Plan of Treatment Upcoming Encounters Date Type Department Care Team (Late st Contact Info) Description 07/03/2025 11:30 AM EDT Office Visit [facility] [address] [place] [address] Sheree Strong NP [address] [place] [address] 08/11/2025 1:00 PM EDT Office Visit [facility] OPTOMETRY [address] [place] [address] Martine Benavidez, OD [address] [place] [address] documented as of this encounter Visit Diagnoses Not on filedocumented in this encounter Additional Health Concerns Assessment Noted Time PHQ-9 Depression Total Score: 17 024 2:44 PM EST documented as of this encounter Care Teams Water Valve Mechanic Relationship Specialty Start Date End Date Sheree Strong NP [address] [place] [address] PCP - General Family Medicine 09/06/24 Eleonora Quigley, MARGARITA [address] [place] [phone] Registered Nurse Family Medicine 05/16/25 Cheryl Mead 05/16/25 documented as of this encounter
--- OUTSIDE RECORDS SUMMARY | 2025-06-29 15:48 | XMS_ITS | Encounter Summary ---
Demographics Address [address] [place] [address] Mobile Phone Home Phone Email Address Preferred Language en Marital Status Sabianism Affiliation Unknown Race Other Race Ethnic Group Unknown Author Organization [employer] Address [address] [facility] [address] [place] [address] Care Team Providers Care Licensed Plumber Name Role Phone Sheree Strong NP Primary Care Provider [phone] Eleonora Quigley RN Unavailable [phone] Cheryl Mead Unavailable Reason for Visit * Reason Comments Med Refill Encounter Details Date Type Department Care Team (Late st Contact Info) Description 07/23/[address] [facility] [address] [place] [phone] Emma De La Cruz ANP [address] [place] [address] Chronic obstructive pulmonary disease, unspecified COPD type [...] Description 07/03/2025 11:30 AM EDT Office Visit [facility] [address] [place] [phone] Sheree Strong NP [address] [place] [address] 08/11/2025 1:00 PM EDT Office Visit [facility] OPTOMETRY [address] [place] [address] Martine Benavidez OD [address] [place] [address] documented as of this encounter Visit Diagnoses Diagnosis Chronic obstructive pulmonary disease, unspecified COPD type (CMS/HCC) documented in this encounter Care Teams Licensed Plumber Relationship Specialty Start Date End Date Sheree Strong NP [address] [place] [address] PCP - General Family Medicine 09/06/24 Eleonora Quigley, MARGARITA [address] [place] [address] Registered Nurse Family Medicine 05/16/25 Cheryl Mead 05/16/25 documented as of this encounter
--- OUTSIDE RECORDS SUMMARY | 2025-06-29 15:48 | XMS_ITS | Clinical Summary ---
Demographics Address [address] [place] [address] Mobile Phone Home Phone Work Phone Email Address Preferred Language en Marital Status Pentecostalism Affiliation Unknown Race Other Race Ethnic Group or Author Organization [facility] Address [address] [place] [address] Phone Care Team Providers Care Ticker Wirer Name Role Phone Sheree Strong BISHOP Primary Care Provider [phone] Allergies No known active allergies Medications [...] Date Noncompliance 10/29/2024 HTN (hypertension) 10/29/2024 Stroke ([facility] V24, [facility] V28) 10/25/2024 Diabetes ([facility] V24, [facility] V28) 10/25/2024 CVA (cerebral vascular accident) ([facility] V24, [place]/[facility] V28) 10/25/2024 Resolved Problems Problem Noted [...] Care Team (Late st Contact Info) Description 08/28/2025 9:45 AM EST Consult Orthopedic Surgery - [place] [address] [address] Valentin Saldivar, DPM [address] [address] Health Maintenance Due Date Last Done Comments [...] LAB CHEMISTRY METHOD 11/03/2024 2:[address] [facility] Potassium 4.1 3.5 - 5.5 mmol/L LAB CHEMISTRY METHOD 11/03/2024 2:[address] [facility] Chloride 102 96 - 110 mmol/L LAB CHEMISTRY METHOD 11/03/2024 2:45 PM [facility] CO2 27 21 - 32 mmol/L LAB CHEMISTRY METHOD 11/03/2024 2:45 PM [facility] Anion Gap 5 3 - 11 LAB CHEMISTRY METHOD 11/03/2024 2:45 PM [facility] Glucose 93 70 - 100 mg/dL LAB CHEMISTRY METHOD 11/03/2024 2:45 PM [facility] BUN 23 5 - 25 mg/dL LAB CHEMISTRY METHOD 11/03/2024 2:45 PM [facility] Creatinine 0.80 0.50 - 1.10 mg/dL LAB CHEMISTRY METHOD 11/03/2024 2:45 PM [facility] eGFR 83 >=60 mL/min/1. 73m2 LAB CHEMISTRY METHOD 11/03/2024 2:45 PM [facility] Comment:Calculation based on the Chronic Kidney Disease Epidemiology Collaboration (CKD-EPI) equation refit without adjustment for race. BUN/Creatinine Ratio 28.8 LAB CHEMISTRY METHOD 11/03/2024 2:45 PM [facility] Calcium 8.6 8.5 - 10.5 mg/dL LAB CHEMISTRY METHOD 11/03/2024 2:45 PM [facility] AST (SGOT) 20 10 - 42 unit/L LAB CHEMISTRY METHOD 11/03/2024 2:45 PM [facility] ALT (SGPT) 28 10 - 60 unit/L LAB CHEMISTRY METHOD 11/03/2024 2:45 PM [facility] Alkaline Phosphatase 72 42 - 121 unit/L LAB CHEMISTRY METHOD 11/03/2024 2:45 PM [facility] Total Protein 6.3 6.0 - 8.0 g/dL LAB CHEMISTRY METHOD 11/03/2024 2:45 PM [facility] Albumin 3.2 3.2 - 5.0 g/dL LAB CHEMISTRY METHOD 11/03/2024 2:45 PM [facility] Total Bilirubin 0.4 0.0 - 1.4 mg/dL LAB CHEMISTRY METHOD 11/03/2024 2:[address] [facility] Blood Venous blood specimen / Unknown Venipuncture / Unknown 11/03/2024 2:02 PM EST 11/03/2024 2:10 PM EST Fernanda EATON LAB BLOOD ORDERABLES Final Res ult Performing Organization Address [facility]/ZIP Co de Phone Number [facility] [address] [place] [address], [place] [phone] * Hemoglobin A1c (10/26/2024 6:38 AM EST) Hemoglobin A1C 6.1 <6.5 % LAB CHEMISTRY METHOD 10/26/2024 1:[address] [facility] Mean Bld Glu Estim. 128 mg/dL LAB CHEMISTRY METHOD 10/26/2024 1:[address] [facility] Blood Venous blood specimen / Unknown Venipuncture / Unknown 10/26/2024 6:38 AM EST 10/26/2024 6:46 AM EST Ghazal EATON LAB BLOOD ORDERABLES Final Re sult Performing Organization Address [facility]/ZIP Co de Phone Number [facility] [address] [place] [address], [place] [phone] from Last 3 Months or Most Recently Relevant to Health Maintenance Insurance [place]ICA[place] - [place] Advance Directives Documents on File Type Date Recorded Patient Senior Clinical Data Analyst Expl anation Advance Directives and Living Will [...] Agents on File Name Relationship Healthcare Agent [facility] p Communication Dominguez Bill [facility] Health Care Agent Care Teams Ticker Wirer Relationship Specialty Start Date End Date Sheree Strong FNP [address] [place] [address] PCP - General Nurse Practitioner 10/24/24
--- OUTSIDE RECORDS SUMMARY | 2025-06-29 15:48 | XMS_ITS | Encounter Summary ---
Demographics Address [address] [place] [address] Mobile Phone Home Phone Email Address Preferred Language en Marital Status Lutheran Affiliation Unknown Race Other Race Ethnic Group Unknown Author Organization [employer] Address [address] [place] [address] Care Team Providers Care News Video Editor Name Role Phone Sheree Strong NP Primary Care Provider Eleonora Quigley RN Unavailable [phone] Cheryl Mead Unavailable Encounter Details Date Type Department Care Team (Late st Contact Info) Description 06/26/2025 Telephone [facility] [address] [place], [place] [phone] Sheree Strong NP [address] [place], [place] [phone] Social History Tobacco Use Types Packs/Day Years [...] Pests such as bugs, ants, or mice;Lead [place] or Pipes;Inadequate heat 09/06/2024 Food Insecurity Answer [...] encounter Miscellaneous Notes * Telephone Encounter - Sheree Strong NP - 06/26/2025 12:20 PM EDT Discussed hydralazine taper, reduce to BID x 2 days, then 1 table daily x 2 days. Then stop Monitor bp at home Call for elevated reading. Will titrate amlodipine at follow up OV next week documented in this encounter Plan of Treatment Upcoming Encounters Date Type Department Care Team (Late st Contact Info) Description 07/03/2025 11:30 AM EDT Office Visit [facility] [address] [place] [address] Sheree Strong NP [address] [place] [address] 08/11/2025 1:00 PM EDT Office Visit [facility] [address] [place] [address] Martine Benavidez, OD [address] [place] [address] documented as of this encounter Visit Diagnoses Not on filedocumented in this encounter Additional Health Concerns Assessment Noted Time PHQ-9 Depression Total Score: 21 025 10:47 AM EDT documented as of this encounter Care Teams News Video Editor Relationship Specialty Start Date End Date Sheree Strong NP [address] [place] [address] PCP - General Family Medicine 09/06/24 Eleonora Quigley RN [address] [place] [address] Registered Nurse Family Medicine 05/16/25 Cheryl Mead 05/16/25 documented as of this encounter
== END 2025-06-29 12:13 | disposition home or self-care (01) ==
LOC: HO.HCS 11:26
PROVIDERS: PCP Nurse Practitioner Family; Visit Provider Internal Medicine
DX: I25.10 Atherosclerotic heart disease of native coronary artery without angina pectoris (principal); Z95.1 Presence of aortocoronary bypass graft; I50.32 Chronic diastolic (congestive) heart failure; I10 Essential (primary) hypertension; I63.9 Cerebral infarction, unspecified
CPT/HCPCS: 93010; 99214

== ENCOUNTER → 2025-06-29 11:25 | Outpatient (BNVA) | payer MEDICAID, SELFPAY | PROVIDERS: PCP Nurse Practitioner Family; Visit Provider Internal Medicine | DX: I25.10 Atherosclerotic heart disease of native coronary artery without angina pectoris (principal); I50.32 Chronic diastolic (congestive) heart failure; Z95.1 Presence of aortocoronary bypass graft; I10 Essential (primary) hypertension; I63.9 Cerebral infarction, unspecified | CPT/HCPCS: 93005; 99212 ==

== ENCOUNTER 2025-07-13 11:51 | Outpatient (AMB) | payer MEDICAID, SELFPAY ==
--- NOTE | 2025-07-13 11:51 | HO.NEPHOV ---
Vital Signs 07/13/25 11:52 07/13/25 12:03 Height 5 ft 3 in Weight 105 lb BMI 18.6 BP 170/90 H 140/80 H Blood Pressure Location Lt brachial Lt brachial Position Sitting Sitting Pulse 72 Pulse Source Pulse Oximeter Pulse Oximetry (%) 100 Oxygen Delivery Method Room Air Intake Visit Reasons: R/S 07/06/2025, w/labs Lead Retail Sales Associate Required: No Accompanied by: Self / Same As Patient Allergies cat dander (CAT DANDER) Allergy (Mild, Verified 11/14/24 11:05) ITCHY EYES Medication List - Last Reconciled 07/13/25 by Brannon Liz MD albuterol sulfate 90 mcg/actuation (Ventolin HFA) 2 puffs inhalation Q6H PRN amlodipine 10 mg PO DAILY ascorbic acid (vitamin C) 250 mg PO DAILY aspirin 81 mg PO DAILY atorvastatin 40 mg PO DAILY budesonide-formoterol 160-4.5 mcg/actuation (Symbicort) 2 puffs inhalation BID carvedilol (Coreg) 25 mg PO BID clopidogrel 75 mg PO DAILY docusate sodium 100 mg PO BID duloxetine 60 mg PO DAILY empagliflozin (Jardiance) 10 mg PO DAILY ferrous sulfate (FeroSul) 325 mg PO DAILY gabapentin 400 mg PO TID hydralazine 25 mg PO TID nitroglycerin 0.4 mg sublingual Q5M PRN oxycodone 5 mg PO BID PRN pantoprazole 40 mg PO DAILY@0630 sacubitril-valsartan 97-103 mg (Entresto) 1 tab PO BID trazodone 150 mg PO BEDTIME umeclidinium 62.5 mcg/actuation (Incruse Ellipta) 1 inh inhalation DAILY HPI Comments Details: 63-year-old woman with a history of atrophic left kidney has been referred for further evaluation of chronic kidney disease. She has a history of hepatitis-C which was treated in 2022 with Korina History of coronary disease status post CABG in 2019. Reason fraction was 55-60% as of 07/08/2023 History of congestive heart failure. 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 History of COPD with asthma. History of SLE/arthritis. History of AAA. Renal duplex done in 12/08/2019 did not reveal any significant renal artery stenosis. There was infrarenal abdominal aortic aneurysm measuring 3.1 cm in 2019. 08/09/2024 History of bilateral renal artery stenosis status post stent on both sides both stents were open as per recent CT scan in 07/08/2024 11/14/24 Had a CVA last month- Left sided weakness ;Was in [facility] ;Off Antihypertensives due to low BP 07/13/25 - The patient is a 64-year-old female presenting with follow-up on renal artery stenosis and hypertension management. - Hepatitis C treated with Mavyret, currently asymptomatic. - Coronary artery disease post-CABG in 2018, with prior artery occlusion. - COPD and esophageal arthritis, stable without exacerbations. - Bilateral renal artery stenosis with stent placement in July 2024, requires ongoing monitoring. - Hypertension with variable control, on multiple antihypertensives. - Decreased appetite and occasional nausea, no significant weight change. - Lightheadedness on standing, likely due to blood pressure issues. [facility] Medical History (Updated 03/02/25 @ 11:50 by Mynor Ramos MD) Fibromyalgia Insomnia Former heavy tobacco smoker Iron deficiency Abnormal mammogram Osteopenia Lupus (systemic lupus erythematosus) Hypercholesterolemia GERD (gastroesophageal reflux disease) COPD (chronic obstructive pulmonary disease) Polyneuropathy Occlusion and stenosis of left vertebral artery CVA (cerebral vascular accident) Heart failure with recovered ejection fraction (HFrecEF) Arthritis CKD (chronic kidney disease) COPD with asthma Hyperlipidemia Hypertension Atherosclerotic cardiovascular disease Diabetes Surgical History Status post aorto-coronary artery bypass graft History of open heart surgery Family History Father Heart attack Social History Household Members: Family Housing: House Alcohol intake: never Patient Tobacco Use Status: Never used Tobacco Substance Use Type: Marijuana service: No Physical Exam Vital Signs: Last Vital Signs Pulse 72 07/13/25 11:52 BP 140/80 H 07/13/25 12:03 Pulse Ox 100 07/13/25 11:52 Oxygen Delivery Method Room Air 07/13/25 11:52 BMI result Body Mass Index 18.6 Comfortable Neck supple no JVD. Lungs entry equal no rales. Heart S1-S2 heard no gallop or rub. Abdomen soft nontender. Neuro alert awake oriented. No asterixis. Extremities no edema. Results Reviewed Nephrology Results: Hgb, (12.0-16.0) 12.4 g/dl 05/15/25 WBC, (4.8-10.8) 4.8 X10*3/uL 05/15/25 Plt Count, (160-400) 208 X10*3/uL 05/15/25 Sodium, (135-145) 142 mmol/L 05/15/25 Potassium, (3.3-5.1) 4.2 mmol/L 05/15/25 Chloride, (96-108) 110 mmol/L H 05/15/25 Carbon Dioxide, (22-29) 27 mmol/L 05/15/25 BUN, (9-16) 11 mg/dL 05/15/25 Creatinine, (0.5-1.4) 0.95 mg/dL 05/15/25 Calcium, (8.4-10.2) 9.4 mg/dL 05/15/25 Assessment & Plan Assessment & Plan (1) Hypertension: Code(s): I10 - Essential (primary) hypertension Category: Medical (2) Atrophy of left kidney: Code(s): N26.1 - Atrophy of kidney (terminal) Category: Medical Plan 63-year-old woman with a history of atrophic left kidney with a baseline creatinine of 0.9 mg/dL in the setting of coronary disease and significant peripheral vascular disease and infrarenal abdominal aortic aneurysm has hypertension. No need for antihypertensive meds at this time Reassess Discussed low-salt History of renal artery stenosis with atrophic left kidney CTA in 07/08/2024 showed 1. No evidence of aortic dissection. 2. Infrarenal abdominal aortic aneurysm at 3 cm. 3. Bilateral renal artery stents are patent with associated atrophy of the lower pole of the left kidney. 4. Incidental note made of mild cardiomegaly, mild emphysema, benign hepatic cyst and degenerative changes in the spine. Goal is to slow the progression of kidney disease Continue to avoid nephrotoxic agents including NSAIDs. Continue to avoid hypotension She will follow along closely with the team. Orders: Orders Basic Metabolic Panel 4 Months I10 - Essential (primary) hypertension Coding Level of Care Code Est Pt Level 4 (52145) Diagnoses Hypertension I10 Atrophy of left kidney N26.1
[2025-07-13 11:52] VITALS: BP 170/90; PULSE 72; O2SAT 100; BMI 18.6
[2025-07-13 12:03] VITALS: BP 140/80
--- OUTSIDE RECORDS SUMMARY | 2025-07-13 16:44 | XMS_ITS | Clinical Summary ---
Demographics Address [address] [place] [address] Mobile Phone Home Phone Work Phone Email Address Preferred Language en Marital Status Nondenominational Affiliation Unknown Race Other Race Ethnic Group or Author Organization [facility] Address [address] [place] [address] Phone Care Team Providers Care Communications Lead Name Role Phone Sheree Strong BISHOP Primary Care Provider [phone] Allergies No known active allergies Medications [...] Date Noncompliance 10/29/2024 HTN (hypertension) 10/29/2024 Stroke ([facility] V24, [facility] V28) 10/25/2024 Diabetes ([facility] V24, [facility] V28) 10/25/2024 CVA (cerebral vascular accident) ([facility]24, [facility] [place] V28) 10/25/2024 Resolved Problems Problem Noted [...] 9:45 AM EST Consult Orthopedic Surgery - [place] [address] [address] Valentin Saldivar, DPM [address] [address] Health Maintenance Due Date Last [...] mmol/L LAB CHEMISTRY METHOD 11/03/2024 2:45 PM [facility] CO2 27 21 - 32 mmol/L LAB CHEMISTRY METHOD 11/03/2024 2:45 PM [facility] Anion Gap 5 3 - 11 LAB CHEMISTRY METHOD 11/03/2024 2:45 PM [facility] Glucose 93 70 - 100 mg/dL LAB CHEMISTRY METHOD 11/03/2024 2:45 PM [facility] BUN 23 5 - 25 mg/dL LAB CHEMISTRY METHOD 11/03/2024 2:45 PM [facility] Creatinine 0.80 0.50 - 1.10 mg/dL LAB CHEMISTRY METHOD 11/03/2024 2:45 PM [facility] eGFR 83 >=60 mL/min/1. 73m2 LAB CHEMISTRY METHOD 11/03/2024 2:45 PM [facility] Comment:Calculation based on the Chronic Kidney Disease Epidemiology Collaboration (CKD-EPI) equation refit without adjustment for race. BUN/Creatinine Ratio 28.8 LAB CHEMISTRY METHOD 11/03/2024 2:45 PM [facility] Calcium 8.6 8.5 - 10.5 mg/dL LAB CHEMISTRY METHOD 11/03/2024 2:45 PM [facility] AST (SGOT) 20 10 - 42 unit/L LAB CHEMISTRY METHOD 11/03/2024 2:45 PM [facility] ALT (SGPT) 28 10 - 60 unit/L LAB CHEMISTRY METHOD 11/03/2024 2:45 PM [facility] Alkaline Phosphatase 72 42 - 121 unit/L LAB CHEMISTRY METHOD 11/03/2024 2:45 PM [facility] Total Protein 6.3 6.0 - 8.0 g/dL LAB CHEMISTRY METHOD 11/03/2024 2:45 PM [facility] Albumin 3.2 3.2 - 5.0 g/dL LAB CHEMISTRY METHOD 11/03/2024 2:45 PM [facility] Total Bilirubin 0.4 0.0 - 1.4 mg/dL LAB CHEMISTRY METHOD 11/03/2024 2:45 PM EST [facility] Blood Venous blood specimen / Unknown Venipuncture / Unknown 11/03/2024 2:02 PM EST 11/03/2024 2:10 PM EST Fernanda EATON LAB BLOOD ORDERABLES Final Res ult Performing Organization Address [facility]/ZIP Co de Phone Number [facility] [address] [place] [address], [place] [phone] * Hemoglobin A1c (10/26/2024 6:38 AM EST) [...] ORDERABLES Final Re sult Performing Organization Address [facility]/ZIP Co de Phone Number [facility] [address] [place] [address], [place] [phone] from Last 3 Months or Most Recently Relevant to Health Maintenance Insurance [place]ICA[place] - [place] Advance Directives Documents on File Type Date Recorded Patient Sterilizer Operator Expl anation Advance Directives and Living Will [...] Agents on File Name Relationship Healthcare Agent [facility] p Communication Dominguez Bill [facility] Care Agent Care Teams Communications Lead Relationship Specialty Start Date End Date Sheree Strong FNP [address] [place] [address] PCP - General Nurse Practitioner 10/24/24
--- OUTSIDE RECORDS SUMMARY | 2025-07-13 16:44 | XMS_ITS ---
Demographics Address [address] [place] [address] Mobile Phone Home Phone Email Address Preferred Language en Marital Status Synagogue Affiliation Unknown Race Other Race Ethnic Group Unknown Author Organization [employer] Address [address] [place] [address] [address] [place] [address] Care Team Providers Care Salt Operator Name Role Phone Sheree Strong NP Primary Care Provider [phone] Eleonora Quigley RN Unavailable [phone] Cheryl Mead Unavailable CHW Complex Status:Outreach In Progress (Enrolling) Start date:05/16/2025 Enrollment reason:ADT Feed Overview ED- Pt went to [facility] ED on 05/15/25. . Case Team Name Relationship Phone Cheryl Mead(Responsible Staff) [phone] Continued Care and Services Coordination
--- OUTSIDE RECORDS SUMMARY | 2025-07-13 16:44 | XMS_ITS ---
Demographics Address [address] [place] [address] Mobile Phone Home Phone Email Address Preferred Language en Marital Status Oriental Orthodox Affiliation Unknown Race Other Race Ethnic Group Unknown Author Organization [employer] Address [address] [place] [address] 7[address] [place] [address] Care Team Providers Care Hand Mixer Name Role Phone Sheree Strong NP Primary Care Provider [phone] Eleonora Quigley RN Unavailable [phone] Cheryl Mead Unavailable CM Complex Status:Outreach In Progress (Enrolling) Start date:05/16/2025 Enrollment reason:ADT Feed Overview ED- Pt went to [facility] ED on 05/15/25. . Case Team Name Relationship Phone Eleonora Quigley RN(Responsible Staff) Registered Nurse [phone] Continued Care and Services Coordination
--- OUTSIDE RECORDS SUMMARY | 2025-07-13 16:45 | XMS_ITS | Encounter Summary ---
Demographics Address [address] [place] [address] Mobile Phone Home Phone Email Address Preferred Language en Marital Status Amish Affiliation Unknown Race Other Race Ethnic Group Unknown Author Organization [employer] Address [address] [facility] 7t [place] [address] Care Team Providers Care Tool And Die Repair Name Role Phone Sheree Strong NP Primary Care Provider [phone] Eleonora Quigley RN Unavailable [phone] Cheryl Mead Unavailable Reason for Visit * Reason Comments Med Refill Encounter Details Date Type Department Care Team (Late st Contact Info) Description 07/23/[address] [facility] [address] [place] [address] Emam De La Cruz, FELIX [address] [place] [address] Chronic obstructive pulmonary disease, unspecified COPD type [...] Care Team (Late st Contact Info) Description 08/11/2025 1:00 PM EDT Office Visit [facility] [address] [place] [address] Martine Benavidez, OD [address] [place] [address] 08/21/2025 3:15 PM EST Office Visit [facility] [address] [place] [address] Sheree Strong NP [address] [place] [address] documented as of this encounter Visit Diagnoses Diagnosis Chronic obstructive pulmonary disease, unspecified COPD type (CMS/HCC) documented in this encounter Care Teams Tool And Die Repair Relationship Specialty Start Date End Date Sheree Strong NP [address] [place] [address] PCP - General Family Medicine 09/06/24 Eleonora Quigley RN [address] [place] [address] Registered Nurse Family Medicine 05/16/25 Cheryl Mead 05/16/25 documented as of this encounter
--- OUTSIDE RECORDS SUMMARY | 2025-07-13 16:45 | XMS_ITS | Encounter Summary ---
Demographics Address [address] [place] [address] Mobile Phone Home Phone Email Address Preferred Language en Marital Status Church Affiliation Unknown Race Other Race Ethnic Group Unknown Author Organization [employer] Address [address] [facility] [address] [place] [address] Care Team Providers Care Sound Effects Manager Name Role Phone Sheree Strong NP Primary Care Provider Eleonora Quigley RN Unavailable [phone] Cheryl Mead Unavailable Reason for Visit * Reason Onset Date Comments PT-1 01/11/2025 Encounter Details Date Type Department Care Team (Late st Contact Info) Description 01/11/2025 Telephone [facility] [address] [place], [place] [phone] Sheree Strong NP [address] [place], [place] [phone] PT-1 Social History Tobacco Use Types Packs/Day [...] Pests such as bugs, ants, or mice;Lead [place] or Pipes;Inadequate heat 09/06/2024 Food Insecurity Answer [...] Y/N: Yes Provider name or facility name: [address] [place] [address] [place] [address] Escort needed: Y/N: No Do you have a wheelchair: Y/N: No Visits: (4) ( x monthly) documented in this encounter Plan of Treatment Upcoming Encounters Date Type Department Care Team (Late st Contact Info) Description 08/11/2025 1:00 PM EDT Office Visit [facility] [address] [place] [address] Martine Benavidez, OD [address] [place] [address] 08/21/2025 3:15 PM EST Office Visit [facility] [address] [place] [address] Sheree Strong, LISHA [address] [place] [address] documented as of this encounter Visit Diagnoses Not on filedocumented in this encounter Additional Health Concerns Assessment Noted Time PHQ-9 Depression Total Score: 17 024 2:44 PM EST documented as of this encounter Care Teams Sound Effects Manager Relationship Specialty Start Date End Date Sheree Strong NP [address] [place] [address] PCP - General Family Medicine 09/06/24 Eleonora Quigley, MARGARITA [address] [place] [address] Registered Nurse Family Medicine 05/16/25 Cheryl Mead 05/16/25 documented as of this encounter
--- OUTSIDE RECORDS SUMMARY | 2025-07-13 16:45 | XMS_ITS | Encounter Summary ---
Demographics Address [address] [place] [address] Mobile Phone Home Phone Email Address Preferred Language en Marital Status Amish Affiliation Unknown Race Other Race Ethnic Group Unknown Author Organization [employer] Address [address] [facility] [address] [place] [address] Care Team Providers Care Reservations Clerk Name Role Phone Sheree Strong NP Primary Care Provider [phone] Eleonora Quigley RN Unavailable [phone] Cheryl Mead Unavailable Reason for Visit * Reason Onset Date Comments Medication Question 05/02/2025 Encounter Details Date Type Department Care Team ([facility] st Contact Info) Description 05/02/2025 Telephone [facility] MEDICINE [address] [place], [place] [phone] Sheree Strong NP [address] [place], [place] [phone] Medication Question Social History Tobacco Use Types [...] Pests such as bugs, ants, or mice;Lead [place] or Pipes;Inadequate heat 09/06/2024 Food Insecurity [...] or tomorrow. Advised pt to come to [facility] for evaluation. Pt verbalized understanding. Pt would like referral placed for ortho. Message forwarded to provider to review and advise. Shirlene Cortes NP to Me (Selected Message) [place] 05/03/25 12:11 PM Note If there is [...] for review. Advised pt to come to [facility] for evaluation for new or worsening [...] Description 08/11/2025 1:00 PM EDT Office Visit [facility] OPTOMETRY [address] [place] [address] Martine Benavidez, OD [address] [place] [address] 08/21/2025 3:15 PM EST Office Visit [facility] MEDICINE [address] [place] [address] Sheree Strong NP [address] [place] [address] documented as of this encounter Visit Diagnoses Not on filedocumented in this encounter Additional Health Concerns Assessment Noted Time PHQ-9 Depression Total Score: 21 025 10:47 AM EDT documented as of this encounter Care Teams Reservations Clerk Relationship Specialty Start Date End Date Sheree Strong NP [address] [place] [address] PCP - General Family Medicine 09/06/24 Eleonora Quigley, RN [address] [place] [address] Registered Nurse Family Medicine 05/16/25 Cheryl Mead 05/16/25 documented as of this encounter
--- OUTSIDE RECORDS SUMMARY | 2025-07-13 16:45 | XMS_ITS | Encounter Summary ---
Demographics Address [address] [place] [address] Mobile Phone Home Phone Email Address Preferred Language en Marital Status Hoahaoism Affiliation Unknown Race Other Race Ethnic Group Unknown Author Organization [employer] Address [address] [facility] [address] [place] [address] Care Team Providers Care Metal Furniture Panel Coverer Name Role Phone Sheree Strong NP Primary Care Provider [phone] Eleonora Quigley RN Unavailable [phone] Cheryl Mead Unavailable Reason for Referral * Consultation (Routine) - Authorized Specialty Diagnoses / Procedures Referred By Jackelyn tobin Referred To Contact Orthopaedic Surgery Diagnoses Right hip pain Shirlene Cortes NP [address] [place] [address] Phone: tel: fax: [facility] [address] [place] [address] [place] [address] Phone: tel: fax: Referral ID Status Reason Start Date Expiration Date Visits Requested Visits Authorized [id number] Authorized Specialty Services Required 06/09/2025 06/09/2026 6 6 Encounter Details Date Type Department Care Team (Late st Contact Info) Description 05/03/2025 Orders Only [facility] MEDICINE [address] [place], [place] [phone] Shirlene Cortes NP [address] [place], [place] [phone] Right hip pain (Primary Dx) Social History [...] Pests such as bugs, ants, or mice;Lead [place] or [place]ipes;Inadequate heat 09/06/2024 Food Insecurity Answer [...] Description 08/11/2025 1:00 PM EDT Office Visit [facility] OPTOMETRY [address] [place] [address] Pramod, Martine, OD [address] [place] [address] 08/21/2025 3:15 PM EST Office Visit [facility] MEDICINE [address] [place] [address] Sheree Strong NP [address] [place] [address] Scheduled Referrals Name Type Priority Associated Diagnoses [...] documented as of this encounter Care Teams Metal Furniture Panel Coverer Relationship Specialty Start Date End Date Sheree Strong NP [address] [place] [address] PCP - General Family Medicine 09/06/24 Eleonora Quigley RN [address] [place] [address] Registered Nurse Family Medicine 05/16/25 Cheryl Mead 05/16/25 documented as of this encounter
--- OUTSIDE RECORDS SUMMARY | 2025-07-13 16:45 | XMS_ITS | Encounter Summary ---
Demographics Address [address] [place] [address] Mobile Phone Home Phone Email Address Preferred Language en Marital Status Caodaism Affiliation Unknown Race Other Race Ethnic Group Unknown Author Organization [employer] Address [address] [facility] [address] [place] [address] Care Team Providers Care Vp Treasurer Name Role Phone Sheree Strong NP Primary Care Provider [phone] Eleonora Quigley RN Unavailable Cheryl Mead Unavailable Reason for Visit * Reason Onset Date Comments Nurse Triage 07/06/2024 Encounter Details Date Type Department Care Team (Late st Contact Info) Description 07/06/2024 Telephone [facility] MEDICINE [address] [place], [place] [phone] Emma De La Cruz ANP [address] [place], [place] [phone] Nurse Triage Social History Tobacco Use Types [...] Description 08/11/2025 1:00 PM EDT Office Visit [facility] OPTOMETRY [address] [place], [place] [phone] Martine Benavidez, OD [address] [place] [address] 08/21/2025 3:15 PM EST Office Visit [facility] MEDICINE [address] [place] [address] Sheree Strong NP [address] [place] [address] documented as of this encounter Visit Diagnoses Not on filedocumented in this encounter Care Teams Vp Treasurer Relationship Specialty Start Date End Date Sheree Strong NP [address] [place] [address] PCP - General Family Medicine 09/06/24 Eleonora Quigley, MARGARITA [address] [place] [address] Registered Nurse Family Medicine 05/16/25 Cheryl Mead 05/16/25 documented as of this encounter
--- OUTSIDE RECORDS SUMMARY | 2025-07-13 16:45 | XMS_ITS | Clinical Summary ---
Demographics Address [address] [place] [address] Mobile Phone Home Phone Email Address Preferred Language en Marital Status Rastafari Affiliation Unknown Race Other Race Ethnic Group Unknown Author Organization [employer] Address [address] [place] [address] Care Team Providers Care Raisin Separator Operator Name Role Phone Sheree Strong NP Primary Care Provider [phone] Eleonora Quigley RN Unavailable [phone] Cheryl Mead Unavailable Allergies No known active allergies Medications Nitrostat 0.[address] 0.4 mg under the tongue every 5 (five) minutes if needed for chest pain. If not resolved in 2 doses, call 911 03/01/20 24 Active albuterol 108 (90 Base) MCG/ACT inhalerIndicatio ns:Chronic obstructive pulmonary disease, unspecified COPD type (CMS/HCC) Inhale 2 puffs every 6 (six) hours if needed for wheezing. 18 g 1 05/20/20 24 Active budesonide-formo terol (Symbicort) 160-4.5 MCG/ACT inhalerIndicatio [...] 11/14/19 25 Active clopidogrel (Plavix) 75 MG tabletIndication [...] 90 tablet 2 04/13/20 25 Active Umeclidinium [place] (Incruse Ellipta) 62.5 MCG/ACT aerosol powderIndication s:Chronic obstructive pulmonary disease, unspecified COPD type ([facility]) Inhale 1 Act (62.5 mcg) Once per day. INHALE 1 PUFF BY MOUTH EVERY DAY AT THE SAME TIME 30 each 2 04/13/20 25 Active sacubitril-valsa rtan (Entresto) 24-26 MG tabletIndication s:Heart failure with recovered ejection fraction (HFrecEF) ([facility]) Take 1 tablet by mouth 2 times [...] 04/26/20 25 Active traZODone (Desyrel) 150 MG tabletIndication s:Insomnia, unspecified type TAKE 1 TABLET BY MOUTH AT BEDTIME 30 tablet 2 06/07/20 25 Active DULoxetine (Cymbalta) [address] capsuleIndicatio ns:Fibromyalgia TAKE 1 CAPSULE BY MOUTH EVERY DAY 30 capsule 2 06/07/20 25 Active Jardiance 10 MG Take 1 tablet by mouth Once per day. 06/02/20 25 Active atorvastatin (Lipitor) 40 MG tabletIndication s:Arterioscleros is of coronary artery TAKE 1 TABLET BY MOUTH EVERY DAY 90 tablet 1 06/12/20 25 Active pantoprazole (ProtoNix) 40 MG EC tabletIndication s:Gastro-esophag eal reflux disease without esophagitis TAKE 1 TABLET BY MOUTH EVERY DAY BEFORE BREAKFAST 90 tablet 1 06/12/20 25 Active psyllium (Metamucil) 0.36 g capsule Take 6 capsules (2.16 g) by mouth Once per day. 180 capsule 11 06/21/20 25 026 Active fluticasone (Flonase) 50 MCG/ACT nasal spray Administer 1-2 sprays into each nostril Once per day. Shake gently. Before first use, prime pump. After use, clean tip and replace cap. 16 g 06/21/20 25 026 Active gabapentin (Neurontin) 400 MG capsule TAKE 1 CAPSULE BY MOUTH EVERY 8 HOURS 90 capsule 2 06/26/20 25 Active gabapentin (Neurontin) 400 MG capsule TAKE 1 CAPSULE BY MOUTH EVERY 8 HOURS 90 capsule 2 03/14/20 25 025 Discontinued Reguloid 400 MG capsule TAKE 5 CAPSULES BY MOUTH EVERY DAY 150 capsule 11 05/16/20 25 025 Discontinued hydrALAZINE (Apresoline) 25 MG tablet Take 1 tablet by mouth 3 times daily. 05/18/20 25 025 Discontinued traMADol (Ultram) 50 MG tabletIndication s:Chronic idiopathic constipation Take 1 tablet (50 mg) by mouth every 6 (six) hours if needed for severe pain for up to 7 days. 28 tablet 06/21/20 025 Active Problems Problem Noted Date Diagnosed [...] CVA (cerebral vascular accident) 10/25/2024 Overview (01/06/2025): [facility] (10/19/24 - 10/25/24) Patient presented to [...] EST): Pt reports pain was treated in [place], once established with rheumatology and disease flares managed (not currently) will address adjunctive pain measure Pt in agreement with this plan Health care maintenance 09/11/2024 Assessment & Plan (09/11/2024 4:02 PM EST): Referrals to eye care, dental Mammogram ordered Former heavy tobacco smoker 05/20/2024 Overview (05/20/2024): Smoked from [id number], 1-1.5 PPD, 41-61.5 PYH Lupus erythematosus 03/15/2024 [...] cath 03/2020: Patent ALMENDAREZ-LAD, SVG-OM, SVG-PDA. Severe council vessel CAD. Lexiscan 06/2021: Anterior ischemia. Cardiac [...] multivessel CAD with patent ALMENDAREZ/saphenous grafts. Severe council vessel disease. [facility]ocardiogram from [facility]reported to have grossly normal LVEF; no overt abnormalities. In 2021, LVEF was apparently 30-35%. Assessment & Plan (05/15/2025 10:45 AM EDT): Continue plavix and statin Assessment & Plan (04/09/2025 11:57 AM EDT): Continue with aspirin and plavix (per cardiology) And statin Coronary arteriosclerosis in council artery 06/24 Overview (11/01/2024): I25.10: Atherosclerotic heart disease of council coronary artery without angina pectoris Atherosclerosis of [...] Type Department Care Team Description 06/29/2025 Telephone [facility] [address] [place] [phone] Sheree Strong NP CHARTPREP 06/27/2025 Telephone [facility] [address] [place] [address] Sheree Strong NP PT-1 06/26/2025 Telephone [facility] [address] [place] [address] Sheree Strong NP 06/24/2025 Refill [facility] [address] [place] [address] Sheree Strong NP 06/21/2025 9:45 AM EDT Office Visit [address] [address] Sheree Strong NP Chronic idiopathic constipation (Primary Dx); Seasonal allergic rhinitis due to pollen; Vasovagal syncope; Other chronic pain 06/21/2025 Travel 06/11/2025 Refill [facility] [address] [place] [address] Sheree Strong NP Arteriosclerosis of coronary artery; Gastro-esophageal reflux disease without esophagitis 06/09/[address] [address] Sheree Strong NP 06/09/[address] [address] Sheree Strong NP No Show (Pt no show to [facility] D/C 05/20/25 Dx: ABD pain with vomiting, Syncope, Htn on 06/09/2025. No show forward to [facility] nurses.) 06/08/[address] [address] Sheree Strong NP Chart Prep 06/07/2025 Refill [facility] [address], [place] [phone] Sheree Strong NP Insomnia, unspecified type; Fibromyalgia 05/30/[address] [address] Sheree Strong NP 05/25/2025 Patient Outreach [address] [address] Sheree Strong NP Care Management (C3CM- initial assessment/ enrollment. Not available. ) 05/24/2025 Patient Outreach [address] [address] Sheree Strong NP Care Coordination (CM/CHW appt reminder) 05/23/[address] [address] Sheree Strong NP FYI 05/22/2025 Patient Outreach [address] [address] Sheree Strong NP 05/19/2025 Patient Outreach [address] [address] Sheree Strong NP Transition Of Care (Tcm) (HDF- Unscheduled - patient still admitted. ) 05/19/[address] [address] Sheree Strong NP FYI 05/18/2025 Patient Outreach [address] [address] Shreee Strong NP 05/18/[address] [address] Sheree Strong NP requesting call back 05/17/2025 Patient Outreach [address] [address] Sheree Strong NP 05/16/[address] [address] Sheree Strong NP Prior Authorization 05/16/2025 Patient Outreach [address] [address] Sheree Strong NP Care Coordination (CM/CHW outreach) 05/16/2025 Patient Outreach [address] [address] Sheree Strong NP Care Coordination (CHW chart review) 05/16/2025 Patient Outreach [address] [address] Sheree Strong NP Care Management (C3CM- chart review) 05/16/2025 Patient Outreach [address] [address] Sheree Strong NP 05/15/2025 9:00 AM EDT Office Visit [address] [address] Sheree Strong NP Health care maintenance (Primary Dx); Heart failure with recovered ejection fraction (HFrecEF) ([facility]); Hypertension, unspecified type; Other constipation; Arthritis of right hip; Rheumatoid arthritis of other site, unspecified whether rheumatoid factor present ([facility]); Chronic obstructive pulmonary disease, unspecified COPD type ([facility]); Arteriosclerosis of coronary artery; Stenosis of carotid artery, unspecified laterality; Chronic combined systolic and diastolic heart failure ([facility]); Prediabetes; Systemic lupus erythematosus, unspecified SLE type, unspecified organ involvement status ([facility]); Other chronic pain; Cerebrovascular accident (CVA) due to other mechanism ([facility]); Hypertensive heart disease with congestive heart failure, unspecified heart failure type ([facility]) 05/15/[address] [address] Sheree Strong NP Fax office note 05/15/[address] [address] Sheree Strong NP 05/15/2025 Travel 05/12/[address] [address] Zakia Connolly [place] Chart Prep 05/10/2025 9:00 AM EDT Office Visit [facility] [address] [place] [address] Martine Benavidez, OD Diabetes type 2, no ocular involvement ([facility]) (Primary Dx); Glaucoma suspect of both eyes; Nuclear sclerotic cataract of both eyes; Hypertensive retinopathy of both eyes; Presbyopia 05/10/2025 Travel 05/08/2025 Patient Outreach [facility] [address] [place] [address] Sheree Strong NP Pre-visit Planning (SDOH unable to reach LVM ) 05/03/2025 Orders Only [facility] [address] [place] [address] Shirlene Cortes NP Right hip pain (Primary Dx) 05/02/2025 Telephone [facility] [address] [place] [address] Sheree Strong NP Medication Question 04/13/[address] [address] Esvni Benton CNP Chart Prep 04/12/2025 Refill [facility] [address] [place] [address] Name, MD Dante Chronic obstructive pulmonary disease, unspecified COPD type ([facility]/HCC) 04/12/2025 Refill [facility] [address] [place] [address] Sheree Strong NP Chronic obstructive pulmonary disease, unspecified COPD type ([facility]) from Last 3 Months Immunizations Immunization Administration [...] Pests such as bugs, ants, or mice;Lead Bono or Pipes;Inadequate heat 09/06/2024 Food Insecurity Answer [...] Description 08/11/2025 1:00 PM EDT Office Visit [facility] [address] [place] [address] Pramod Martine, OD [address] [place] [address] 08/21/2025 3:15 PM EST Office Visit [facility] [address] [place] [address] Sheree Strong, LISHA [address] [place] [address] Health Maintenance Due Date Last Done Comments [...] AM EDT Glaucoma suspect of both eyes BI US BREAST LIMITED BILATERAL Urgent 01/10/2025 [...] Blood Count 4.8 4.8 - 10.8 X10*3/uL [facility] Red Blood Count 4.99 4.20 - 5.50 X10*6/uL [facility] Hemoglobin 12.4 12.0 - 16.0 g/dl [facility] Hematocrit 40.7 37.0 - 47.0 % [facility] Mean Corpuscular Volume 81.6 80.0 - 98.0 fL [facility] Mean Corpuscular Hemoglobin 24.8(L) 27.0 - 33.0 pg [facility] Mean Corpuscular HGB Conc 30.5(L) 31.0 - 35.0 g/dl [facility] Red Cell Distribution Width 15.8 11.0 - 16.0 % [facility] Platelet Count 208 160 - 400 X10*3/uL [facility] Mean Platelet Volume 10.9 9.4 - 12.3 fL [facility] Neutrophils Percent Auto 34.9(L) 45 - 73 % [facility] Imm Gran Pct Auto 0.2 0.0 - 0.4 % [facility] Lymphocytes Percent Auto 42.8(H) 20 - 40 % [facility] Monocytes Percent Auto 9.9 2 - 11 % [facility] Eosinophils Percent Auto 11.8(H) 0 - 4 % [facility] Basophils Percent Auto 0.4 0 - 2 % [facility] NRBC Pct Auto 0.0 0.0 - 0.2 /100WBC [facility] Neutrophils Absolute Auto 1.7(L) 2.0 - 8.3 x10*3/uL [facility] Imm Gran Abs Auto 0.01 0.00 - 0.03 X10*3/uL [facility] Lymphocytes Absolute Auto 2.1 1.2 - 4.9 X10*3/uL [facility] Monocytes Absolute Auto 0.5 0.1 - 1.2 X10*3/uL [facility] Eosinophils Absolute Auto 0.6(H) 0.0 - 0.4 X10*3/uL [facility] Basophils Absolute Auto 0.0 0.0 - 0.2 X10*3/uL [facility] NRBC Abs Auto 0.000 0.0 - 0.012 X10*3/uL [facility] Blood Venous blood specimen / Unknown 05/15/2025 10:16 AM EDT 05/15/2025 11:26 AM EDT us Sheree Strong INTERNATIONAL PROJECT ENGINEER LAB BLOOD ORDERABLES Final Resul t [facility] [address] [place] [phone] * Hemoglobin A1c (05/15/2025 10:16 AM EDT) Hemoglobin A1c 5.7 <6.0 % [facility] Comment:Hemoglobin A1C Refer ence Range Adults: 4.8 - 6.0 % Non diabetic: < 6.0 % Goal: < 7.0 %Additional Action Suggested: > 8.0 %Note: Hemoglobin A1c results are invalid for patients with abnormal amounts of HbF. Blood transfusions may impact the HbA1c concentration in the patient sample. Estimated Average Glucose 117 mg/dL [facility] Comment:eAG = Estimated ave rage glucose which is %A1C expressed asaverage glucose, using the formula of the H5O-GfrshurYrtmacd Glucose study (ADAG), Diabetes Care, Vol.31,#8,May. 2007 Blood Venous blood specimen / Unknown 05/15/2025 10:16 AM EDT 05/15/2025 11:26 AM EDT us Sheree Strong INTERNATIONAL PROJECT ENGINEER LAB BLOOD ORDERABLES Final Resul t [facility] [address] [place] [phone] * Lipid Panel, Standard (05/15/2025 10:16 AM EDT) Triglycerides 120 <150 mg/dL [facility] Comment:Desirable Triglyceri de: less than 150 mg/dLBorderline High Triglyceride 150-199 mg/dLHigh Triglyceride: 200-499 mg/dLVery High Triglyceride: greater than or equal to 5OO mg/dL Cholesterol 123 <200 mg/dL [facility] Comment:Desirable Cholestero l: less than 200 mg/dLBorderline High Cholesterol: 200-239 mg/dLHigh Cholesterol: greater than 239 mg/dL LDL Cholesterol Calculated 51 <100 mg/dL [facility] Comment:Desirable LDL: less than 100 mg/dLNear Optimal/Above Optimal LDL: 110- 129 mg/dLBorderline High LDL: 130-159 mg/dLHigh LDL: 160-189 mg/dLVery High LDL: greater than or equal to 190 mg/dL HDL Cholesterol 48 >40 mg/dL [facility] Comment:Desirable HDL: great er than 40 mg/dL Note: This HDL assay may give artificially low results in patients with liver disease. Blood Venous blood specimen / Unknown 05/15/2025 10:16 AM EDT 05/15/2025 11:26 AM EDT us Sheree Strong INTERNATIONAL PROJECT ENGINEER LAB BLOOD ORDERABLES Final Resul t Performing Organization Address City/[facility]/ZIP Co de Phone Number [facility] [address] [place] [phone] * (ABNORMAL) Comprehensive Metabolic Panel (05/15/2025 10:16 AM EDT) Sodium 142 135 - 145 mmol/L [facility] Potassium 4.2 3.3 - 5.1 mmol/L [facility] Chloride 110(H) 96 - 108 mmol/L [facility] Carbon Dioxide 27 22 - 29 mmol/L [facility] Anion Gap 9(L) 12 - 20 [facility] Urea Nitrogen (BUN) 11 9 - 16 mg/dL [facility] Creatinine, Serum 0.95 0.5 - 1.4 mg/dL [facility] Estimated Glomerular Filt Rate 59 [facility] Comment:Chronic Kidney Disea se: Estimated GFR < 60 mL/min/[id number] Kidney Disease: Estimated GFR < 15 mL/min/1.73m2 Glucose 97 60 - 115 mg/dL [facility] Calcium 9.4 8.4 - 10.2 mg/dL [facility] Bilirubin, Total 0.3 0.0 - 1.0 mg/dL [facility] Aspartate Amino Transferase 24 5 - 31 U/L [facility] Alanine Aminotransferase 12 0 - 31 U/L [facility] Total Protein 8.0 6.5 - 8.0 g/dL [facility] Albumin Level 4.4 3.5 - 5.0 g/dL [facility] Alkaline Phosphatase 73 39 - 117 U/L [facility] Blood Venous blood specimen / Unknown 05/15/2025 10:16 AM EDT 05/15/2025 11:26 AM EDT us Sheree Strong INTERNATIONAL PROJECT ENGINEER LAB BLOOD ORDERABLES Final Resul t Performing Organization Address City/[facility]/ZIP Co de Phone Number [facility] [address] [place] [phone] * OCT, Optic Nerve - OU - Both Eyes (05/10/2025 9:00 AM EDT) Martine Youngblood, OD - 05/26/2025 11:54 AM EDT Images [...] for a visual field test. us Martine Benavidez OD OPHTH TOMOGRAPHY Final Result * BI US Breast Limited Bilateral (01/10/2025 11:06 AM EDT) Anatomical Region Laterality Modality Breast Bilateral Ultrasound 01/10/2025 11:0 6 AM EDT Narrative 01/10/2025 11:45 AM EDT [facility] [address] [place] [address] Ultrasound Report Signed Patient: Estephania Bill MR#: [id number] : 1960 Acct:[id number] Age/Sex: 64 / F ADM Date: 01/10/25 Loc: HO.MAMMO Attending Dr: Oksana Munson CNM Ordering Physician: OKSANA MUNSON CNM Date of Service: 01/10/25 Procedure(s): US breast BI limited mamm only Accession Number(s): [id number] cc: OKSANA MUNSON CNM; LUCIO GOOD NP [...] site of palpable lump without underlying abnormality. Bolton marker in the upper inner breast at [...] 01/10/25 1143 DD/ 1106 TD/TT: 01/10/25 1136 Bed Bug Exterminator: Procedure Note Donotuseinterpreter, Image - [facility] [address] [place] [address] Ultrasound Report Signed Patient: Estephania BillMR#: [id number] : 1960cct:[id number] Age/Sex: 64 / FADM Date: 01/10/25 Loc: HO.MAMMO Attending Dr: Oksana Munson CNM Ordering Physician: OKSANA MUNSON CNM Date of Service: 01/10/25 Procedure(s): US breast BI limited mamm only Accession Number(s): [id number] cc: OKSANA MUNSON CNM; LUCIO GOOD NP [...] site of palpable lump without underlying abnormality. Bolton marker in the upper inner breast at [...] 01/10/25 1143 DD/ 1106 TD/TT: 01/10/25 1136 Bed Bug Exterminator: Oksana Munson CNM [facility] US PROCEDURES Edited Result - Final * HPV DNA, Low/High Risk (11/09/2024 11:25 AM EST) HPV High Risk Negative Negative [facility] HPV Genotype 16 Negative Negative [facility] HPV Genotype 18 Negative Negative [facility] Comment:HPV testing performe d at [facility] (CLIA#[id number]), [address] [place] [phone].Testing for HPV was performed using the [employer]system. The presence of HPV in the female [...] 11/09/2024 2:00 PM EST us Dori Rhodes [facility] LAB BLOOD ORDERABLES Final Res ult [facility] [address] [place] [phone] * Pap Smear (11/09/2024 11:25 AM EST) Swab Cervix uteri structure / Unknown 11/09/2024 11:25 AM EST 11/09/2024 2:00 PM EST Narrative [facility] - 11/15/2024 10:17 AM EST ----- ------- Name: Estephania Bill Age/Sex: 63/F : 1960 Unit#: [id number] Attend Dr: Dori RhodesP Re11/09/24 Status: DEP REF Location: [facility] Disch: ----- ------- SPEC : [id number] RECD: 11/09/24-1400 STATUS: LEISA REESE NUM: [id number] NICKI: 11/09/24-[address] [facility] [address]: Dori Rhodes ENTERED: 11/09/24-1407 SP TYPE: Pap Smr ETHAN JENNINGS: ORDERED: Pap Smear Interpretation Satisfactory for evaluation. Negative for intraepithelial lesion or malignancy. HPV High Risk: Negative HPV Genotyping 16: Negative HPV Genotyping 18: Negative Clinical Information LMP: Unknown date Previous PAP test: Unknown date/findings Material Received ThinPrep-Cervical ----- ------- Signed (signature on file) JONATHAN Wheatley (ASCP) 11/15/24 1017 ----- ------- END OF REPORT Dori Rhodes DIRECTOR SHIP LAB CYTOLOGY ORDERABLES Final Result Performing Organization Address City/[facility]/ZIP Co de Phone Number [facility] [address] [place] [address] [phone] * (ABNORMAL) Hepatitis C Antibody with Reflex to HCV, RNA, Quantitative, Real- Time PCR (09/06/2024 2:49 PM EST) Hepatitis C Antibody Reactive( A) Nonreactive [facility] Comment:Presumptive evidence of antibodies to HCV. Blood Venous blood specimen / Unknown 09/06/2024 2:49 PM EST 09/06/2024 4:07 PM EST Sheree Strong INTERNATIONAL PROJECT ENGINEER LAB BLOOD ORDERABLES Final Resul t Performing Organization Address [facility] Co de Phone Number [facility] [address] [place] [address] [phone] * HIV-1/2 Antigen and Antibodies, Fourth Generation, with Reflexes (09/06/2024 2:49 PM EST) HIV AB/AG Nonreactive Nonreactive [facility] Comment:HIV-1 p24 Ag and/or HIV-1/HIV-2 Ab not detected.A test result that is nonreactive does not exclude thepossibility of exposure to or infection with HIV-1 and/orHIV-2. Nonreactive results in this assay for individualswith prior exposure to HIV-1 and/or HIV-2 may be due toantigen and antibody levels that are below the limit ofdetection of this assay.The [employer] HIV Ag/Ab Combo assay result andsupplemental assay results should be interpreted inconjunction with the patient's clinical presentation,history and other laboratory results. If the results areinconsistent with clinical evidence, additional testing issuggested to confirm the result. Blood Venous blood specimen / Unknown 09/06/2024 2:49 PM EST 09/06/2024 4:07 PM EST us Sheree Strong NP LAB BLOOD ORDERABLES Final Resul t [facility] [address] [place] [phone] [phone] from Last 3 Months or Most Recently Relevant to Health Maintenance Insurance * Guarantor: Estephania Bill Account Type Relation to Patient Date of Phone Billing Address Personal/Family Self 1960 [address] [place] [address] [facility] * Guarantor: Estephania Bill Account Type Relation to Patient Date of Phone Billing Address Personal/Family Self 1960 [address] [place] [address] Care Teams Raisin Separator Operator Relationship Specialty Start Date End Date Sheree Strong NP [address] [place] [phone] PCP - General Family Medicine 09/06/24 Eleonora Quigley RN [address] [place] [address] [place] [address] Registered Nurse Family Medicine 05/16/25 Cheryl Mead 05/16/25
== END 2025-07-13 12:05 | disposition home or self-care (01) ==
LOC: HO.HKA 11:52
PROVIDERS: PCP Nurse Practitioner Family; Visit Provider Internal Medicine Hypertension Specialist
DX: I10 Essential (primary) hypertension (principal); N26.1 Atrophy of kidney (terminal)
CPT/HCPCS: 99214

== ENCOUNTER → 2025-07-13 11:51 | Outpatient (BNVA) | payer MEDICAID, SELFPAY | PROVIDERS: PCP Nurse Practitioner Family; Visit Provider Internal Medicine Hypertension Specialist | DX: I10 Essential (primary) hypertension (principal); N26.1 Atrophy of kidney (terminal) | CPT/HCPCS: 99212 ==